=== PATIENT | female | born 1965 | race Hispanic/Latino ===

== ENCOUNTER 2016-09-14 12:58 | Inpatient (IN) | payer MEDICAID ==
--- NOTE | 2016-09-14 13:10 | ED PDOC ---
Arrival/HPI - General Time Seen by Provider: 09/14/16 13:09 Historian: Family - History of Present Illness Narrative History of Present Illness (Text): 09/14/16 13:12 Stephon Clancy is a 51 year old female, whose past history includes rheumatoid arthritis, TIA on Plavix, anemia, sleep apnea, gastric bypass, hypothyroidism, bipolar disorder, schizoaffective disorder, and sleep apnea, presents to the emergency department for altered mental status. According to , patient developed mild weakness and "out of it" yesterday before going to sleep. He states that symptoms became more pronounced today morning after waking up. Patient's states that patient is somnolent and slow to respond to commands. He states that symptoms are different from previous TIA episode. When asked patient about her complaints, she informs of lower back pain. Time/Duration: Other (since yesterday night. ) Past Medical History - Provider Review Nursing Documentation Reviewed: Yes - Infectious Disease Hx of Infectious Diseases: None - Tetanus Immunization Tetanus Immunization: Unknown - Cardiac Hx Cardiac Disorders: Yes - Pulmonary Hx Respiratory Disorders: Yes Hx Pneumonia: Yes Hx Sleep Apnea: Yes (using c-pap at home) - Neurological Hx Neurological Disorder: No - HEENT Hx HEENT Disorder: No - Renal Hx Renal Disorder: Yes Hx Kidney Stones: Yes - Endocrine/Metabolic Hx Endocrine Disorders: Yes Hx Diabetes Mellitus Type 2: Yes Hx Hypothyroidism: Yes - Hematological/Oncological Hx Blood Disorders: Yes Hx Anemia: Yes (multiple blood transfusion) - Integumentary Hx Dermatological Disorder: No - Musculoskeletal/Rheumatological Hx Musculoskeletal Disorders: Yes - Gastrointestinal Hx Gastrointestinal Disorders: Yes (gi bleed) - Genitourinary/Gynecological Hx Genitourinary Disorders: No - Psychiatric Hx Psychophysiologic Disorder: No Hx Substance Use: No - Surgical History Hx Gastric Bypass Surgery: Yes (16 years ago.) Other/Comment: Port insertion - Anesthesia Hx Anesthesia: Yes Hx Anesthesia Reactions: No Hx Malignant Hyperthermia: No - Suicidal Assessment Feels Threatened In Home Enviroment: No Family/Social History - Physician Review Nursing Documentation Reviewed: Yes Family/Social History: No Known Family HX Smoking Status: Never Smoked Hx Alcohol Use: No Hx Substance Use: No Hx Substance Use Treatment: No Allergies/Home Meds Allergies/Adverse Reactions: Allergies Iodinated Contrast Media - Oral and [Iodinated Contrast Media - IV Dye] Allergy (Verified 09/14/16 13:13) RASH iodine Allergy (Verified 09/14/16 13:13) RASH meperidine Allergy (Verified 09/14/16 13:13) RASH Home Medications: Home Meds Medication Instructions Recorded Confirmed Zolpidem Tartrate [Ambien] 10 mg PO HS 09/12/14 12/28/15 ARIPiprazole [Abilify] 20 mg PO DAILY 10/16/14 12/28/15 Tamsulosin [Flomax] 0.4 mg PO DAILY 10/16/14 12/28/15 Cyanocobalamin [Vitamin B12 1000 1,000 mcg PO Q7D 12/09/14 12/28/15 mcg Tab] traZODone [Desyrel] 200 mg PO HS 12/09/14 12/28/15 Pantoprazole [Protonix EC Tab] 40 mg PO BID 12/12/14 12/28/15 Glucagon [Glucagen Diagnostic Kit] 1 mg IM PRN PRN 04/07/15 12/28/15 Pregabalin [Lyrica] 25 mg PO BID 04/07/15 12/28/15 Ergocalciferol (Vitamin D2) 50,000 unit PO QWK 12/28/15 12/28/15 [Vitamin D2] Folic Acid 1 mg PO DAILY 12/28/15 12/28/15 Oxycodone HCl/Acetaminophen 1 tab PO Q6 PRN 12/28/15 12/28/15 [Percocet 5-325 mg Tablet] Pravastatin Sodium [Pravachol] 40 mg PO DAILY 12/28/15 12/28/15 Levothyroxine [Synthroid] 175 mcg PO ACB 09/14/16 09/14/16 Review of Systems - Review of Systems Systems not reviewed;Unavailable: Altered Mental Status Musculoskeletal: Back Pain Physical Exam Vital Signs Temp Pulse Resp BP Pulse Ox 09/14/16 15:13 91 H 19 103/60 95 09/14/16 14:04 90 21 83/45 L 97 09/14/16 13:53 91 H 19 79/52 L 94 L 09/14/16 13:42 100 H 19 94 L 09/14/16 13:31 98.6 F 97 H 18 80/45 L 88 L Medical Decision Making ED Course and Treatment: 09/14/16 13:21 Impression: A 51 year old female who presents to the emergency room for AMS. Progress Notes: Patient initially hypotensive, corrected to baseline BP after 1 L NS. Lactate negative. No tachycardia. Also hypoxic at 80% corrected to normal with 3L NC. CXR shows R sided new infiltrate. Started on broad spectrum antibiotics for HCAP. Also with acute renal insufficiency and rhabdomyolysis. On IVF and coker placed. Dr. Malave accepts to his service. - Lab Interpretations Lab Results: 09/14/16 13:30 09/14/16 13:30 Lab Results 09/14/16 15:27: Urine Opiates Screen Positive H, Urine Methadone Screen Negative , Ur Barbiturates Screen Negative, Ur Phencyclidine Scrn Negative, Ur Amphetamines Screen Negative, U Benzodiazepines Scrn Negative, U Oth Cocaine Metabols Negative, U Cannabinoids Screen Negative 09/14/16 14:18: Urine Color Yellow, Urine Appearance Sl cloudy, Urine pH 6.0, Ur Specific Ambrose >= 1.030, Urine Protein 30 H, Urine Glucose (UA) Negative, Urine Ketones Negative, Urine Blood Large H, Urine Nitrate Negative, Urine Bilirubin Negative, Urine Urobilinogen 0.2, Ur Leukocyte Esterase Negative, Urine RBC 25 - 30, Urine WBC 0 - 2, Urine Bacteria Few, Coarse Granular Casts Mod H 09/14/16 13:30: WBC 13.3 H D, RBC 3.92, Hgb 11.9 L, Hct 36.8, MCV 93.9, MCH 30.4 , MCHC 32.3, RDW 15.3 H, Plt Count 222, MPV 9.8, Gran % 85.5 H, Lymph % (Auto) 8.3 L, Kimball % (Auto) 6.0, Eos % (Auto) 0.0 L, Baso % (Auto) 0.2, Gran # 11.34 H , Lymph # 1.1 L, Kimball # 0.8 H, Eos # 0.0, Baso # 0.02, PT 12.5 H, INR 1.16 H, APTT 41.8 H, pO2 71 H, VBG pH 7.33, VBG pCO2 47.0, VBG HCO3 24.8, VBG Total CO2 26.2, VBG O2 Sat (Calc) 96.3 H, VBG Base Excess -1.5 L, VBG Potassium 3.4 L, Glucose 93, Lactate 1.1, FiO2 21.0, Sodium 137.0, Potassium 3.4 L, Chloride 103.0, Carbon Dioxide 23, Anion Gap 17, BUN 38 H, Creatinine 3.0 H, Est GFR ( Amer) 20, Est GFR (Non-Af Amer) 17, Random Glucose 96, Calcium 8.0 L, Total Bilirubin 0.9, AST 64 H, ALT 14, Alkaline Phosphatase 90, Total Creatine Kinase 2185 H, CK-MB (CK-2) Cancelled, CK-MB (CK-2) % Cancelled, Troponin I 0.09 D, Total Protein 7.9, Albumin 3.8, Globulin 4.0, Albumin/Globulin Ratio 1.0 L, Lipase 47, Beta HCG, Quant < 2.39, Venous Blood Potassium 3.4 L, Alcohol , Quantitative < 10 - RAD Interpretation Radiology Orders: 09/14/16 13:23 HEAD W/O CONTRAST [CT] Stat CHEST ONE VIEW [RAD] Stat - Medication Orders Current Medication Orders: Discontinued Medications Sodium Chloride (Sodium Chloride 0.9%) 1,000 mls @ 999 mls/hr IV .Q1H1M STA Stop: 09/14/16 14:31 Last Admin: 09/14/16 13:39 Dose: 999 MLS/HR eMAR Start Stop Document 09/14/16 13:39 SE (Rec: 09/14/16 13:39 SE [id number]) Intravenous Solution Start Date 09/14/16 Start Time 13:26 Cefepime HCl (Maxipime 1gm) 100 mls @ 100 mls/hr IVPB STAT STA PRN Reason: Protocol Stop: 09/14/16 16:18 Last Admin: 09/14/16 15:38 Dose: 100 MLS/HR eMAR Start Stop Document 09/14/16 15:38 SE (Rec: 09/14/16 15:38 SE [id number]) Intravenous Solution Start Date 09/14/16 Start Time 15:38 Vancomycin HCl (Vancomycin 1gm) 250 mls @ 167 mls/hr IVPB STAT STA PRN Reason: Protocol Stop: 09/14/16 16:48 Sodium Chloride (Sodium Chloride 0.9%) 1,000 mls @ 999 mls/hr IV .Q1H1M STA Stop: 09/14/16 16:26 Last Admin: 09/14/16 15:27 Dose: 999 MLS/HR eMAR Start Stop Document 09/14/16 15:27 SE (Rec: 09/14/16 15:27 SE [id number]) Intravenous Solution Start Date 09/14/16 Start Time 15:27 - Scribe Statement The provider has reviewed the documentation as recorded by the Malathi Darnell Provider Attestation: All medical record entries made by the Malathi were at my direction and personally dictated by me. I have reviewed the chart and agree that the record accurately reflects my personal performance of the history, physical exam, medical decision making, and the department course for this patient. I have also personally directed, reviewed, and agree with the discharge instructions and disposition. Disposition/Present on Arrival - Present on Arrival Any Indicators Present on Arrival: No History of DVT/PE: No History of Uncontrolled Diabetes: No Urinary Catheter: No History Surgical Site Infection Following: Bariatric Surgery, None - Disposition Have Diagnosis and Disposition been Completed?: Yes Diagnosis: Pneumonia Disposition: HOSPITALIZED Disposition Time: 15:39 Patient Plan: Admission Condition: GUARDED
[2016-09-14 13:18] VITALS: BMI 35.5
[2016-09-14] MEDS ORDERED: Sodium Chloride 0.9% 1,000 ML IV STA ×2 (13:31→15:26)
[2016-09-14 13:39] LABS: ADD MANUAL DIFF? NO
[2016-09-14 13:47] LABS: VENOUS BLOOD GAS BASE EXCESS -1.5 mmol/L (0.0-2.0); VENOUS BLOOD PH 7.33 (7.32-7.43)
[2016-09-14 13:57] LABS: BILIRUBIN,TOTAL 0.9 mg/dL (0.2-1.3); POTASSIUM 3.4 mmol/L (3.6-5.0); TOTAL PROTEIN 7.9 g/dL (5.8-8.3)
[2016-09-14 14:00] LABS: ALCOHOL SERUM < 10 mg/dL (0-10)
[2016-09-14 14:03] LABS: BASO # 0.02 K/mm3 (0.0-2.0); BASO % 0.2 % (0.0-3.0); GRAN # 11.34 (1.4-6.5); GRAN % 85.5 % (50.0-68.0); HEMATOCRIT 36.8 % (36.0-48.0); LYMPH # 1.1 (1.2-3.4); LYMPH % 8.3 % (22.0-35.0); MEAN CELL VOLUME 93.9 fL (80.0-105.0); MEAN CORPUSCULAR HEMOGLOBIN 30.4 pg (25.0-35.0); MEAN CORPUSCULAR HGB CONC 32.3 g/dl (31.0-37.0); MEAN PLATELET VOLUME 9.8 fl (7.0-11.0); MONO # 0.8 (0.1-0.6); PLATELET COUNT 222 10^3/uL (120.0-450.0); RED CELL DISTRIBUTION WIDTH 15.3 % (11.5-14.5); WHITE BLOOD COUNT 13.3 10^3/ul (4.5-11.0)
[2016-09-14 14:09] LABS: TROPONIN I 0.09 ng/mL
[2016-09-14 14:13] LABS: INR 1.16 (0.93-1.08); PARTIAL THROMBOPLASTIN TIME 41.8 Seconds (23.7-30.8)
[2016-09-14 14:32] LABS: URINE BILIRUBIN NEGATIVE (NEGATIVE); URINE BLOOD LARGE (NEGATIVE); URINE GLUCOSE (UA) NEGATIVE (NEGATIVE); URINE KETONE NEGATIVE (NEGATIVE); URINE LEUKOCYTE ESTERASE NEGATIVE Leu/uL (NEGATIVE); URINE PROTEIN 30 mg/dL (<30 mg/dL); URINE UROBILINOGEN 0.2 E.U./dL (<1 E.U./dL)
[2016-09-14 14:33] LABS: URINE APPEARANCE SL CLOUDY (CLEAR); URINE COLOR YELLOW (YELLOW)
[2016-09-14 14:38] LABS: URINE BACTERIA FEW (NEG); URINE RBC 25 - 30 /hpf (0-2); URINE WBC 0 - 2 /hpf (0-6)
--- NOTE | 2016-09-14 15:02 | CT ---
PROCEDURE: CT HEAD WITHOUT CONTRAST. HISTORY: ams COMPARISON: 06/22/2016 TECHNIQUE: Axial computed tomography images were obtained through the head/brain without intravenous contrast. Radiation dose: Total exam DLP = 701 mGy-cm. FINDINGS: HEMORRHAGE: No intracranial hemorrhage. BRAIN: No mass effect or edema. No atrophy or chronic microvascular ischemic changes. VENTRICLES: Unremarkable. No hydrocephalus. CALVARIUM: Unremarkable. PARANASAL SINUSES: Unremarkable as visualized. No significant inflammatory changes. MASTOID AIR CELLS: Unremarkable as visualized. No inflammatory changes. OTHER FINDINGS: None. IMPRESSION: Normal CT of the Head.
--- NOTE | 2016-09-14 15:17 | RAD ---
PROCEDURE: CHEST RADIOGRAPH, 1 VIEW HISTORY: ams COMPARISON: 06/22/2016 at 2:03 p.m. FINDINGS: LUNGS: Shallow lung volumes Right perihilar a right infrahilar and right mid lung zone blending airspace opacities. Right mid lung zone bandlike opacity infiltrates versus masses are considerations. Right mid lung zone subsegmental discoid atelectasis probable as well. PLEURA: No pneumothorax or pleural fluid seen. CARDIOVASCULAR: Normal. OSSEOUS STRUCTURES: No significant abnormalities. VISUALIZED UPPER ABDOMEN: Port-A-Cath inserted tip over right atrial caval junction OTHER FINDINGS: Right mammilated hemidiaphragm IMPRESSION: Interval right perihilar itchy infiltrates with right mid lung zone discoid atelectasis. Underlying right pulmonary masses also need to be considered.
[2016-09-14] MEDS ORDERED: Cefepime 1gm in NS 100ml 100 ML IVPB STA (15:19)
[2016-09-14] MEDS ORDERED: Vancomycin 1gm in NS 250ml 250 ML IVPB STA (15:19)
--- NOTE | 2016-09-14 19:52 | CARD ---
APPROVED REPORT EKG Measurement Heart [id number] VT 144P2 [id number] <Conclusion> Sinus tachycardia Otherwise normal ECG
[2016-09-14] MEDS ORDERED: guaiFENesin DM 200 mg-20 mg/10 ml UD PO PRN (20:55)
[2016-09-14] MEDS: Meropenem 1g/NS 100mL IVPB 100 ML IVPB SCH (22:38)
[2016-09-15] MEDS ORDERED: Potassium Chloride 20 mEq ER Tab PO STA (04:23)
--- NOTE | 2016-09-15 04:38 | CP.PCM.PN ---
Subjective - Date & Time of Evaluation Date of Evaluation: 09/15/16 Time of Evaluation: 04:34 - Subjective Subjective: Nurse calls and requests tylenol for headache.Patient has an order percocet. Blood pressure has been low. Patient was seen by bedside. Complains of head ache , frontal, 7/10, no nausea, dizziness, parasthesia, lateralized weakness , states that she has generalized weakness, no chest pain , sob. 51 year old white woman is admitted with altered mental status. Has PMH of CVA x3, rheumatoid arthrits, anemia,DM II ,GI bleeding, RENA,renal calculus gastric bypass, bipolar disorder,benign pituitary adenoma, schizoaffective disorder,hypothyroidism, morbid obesity, insertion of port-a- cath,cardiac catheterizaion. Objective - Vital Signs/Intake and Output Vital Signs (last 24 hours): Temp Pulse Resp BP Pulse Ox 98.6 F 85 18 100/45 L 95 09/14/16 17:02 09/14/16 18:00 09/14/16 17:02 09/14/16 17:02 09/14/16 15:13 Intake and Output: 09/14/16 09/15/16 18:59 06:59 Intake Total 420 Output Total 350 Balance 70 - Medications Medications: Current Medications Apixaban (Eliquis) 5 mg PO BID KEITH PRN Reason: Protocol Aripiprazole (Abilify) 20 mg PO DAILY KEITH PRN Reason: Protocol Duloxetine HCl (Cymbalta) 20 mg PO DAILY KEITH Folic Acid (Folic Acid) 1 mg PO DAILY KEITH Guaifenesin/Dextromethorphan (Robitussin Dm) 10 ml PO Q4H PRN PRN Reason: Cough Doxycycline Hyclate 100 mg/ (Sodium Chloride) 100 mls @ 100 mls/hr IVPB Q12 KEITH PRN Reason: Protocol Stop: 09/21/16 22:01 Last Admin: 09/14/16 22:38 Dose: 100 mls/hr Meropenem 1g/NS 100mL IVPB (Meropenem 1g/Ns 100ml Ivpb) 100 mls @ 100 mls/hr IVPB Q12 KEITH PRN Reason: Protocol Stop: 09/21/16 22:01 Last Admin: 09/14/16 22:38 Dose: 100 mls/hr Levothyroxine Sodium (Synthroid) 175 mcg PO ACB KEITH Oxycodone/Acetaminophen (Percocet 5/325 Mg Tab) 1 tab PO Q6H PRN PRN Reason: Pain, severe (8-10) Stop: 09/17/16 18:24 Pantoprazole Sodium (Protonix Ec Tab) 40 mg PO 0630 [facility] Pregabalin (Lyrica) 25 mg PO BID [facility] Trazodone HCl (Desyrel) 200 mg PO HS [facility] Last Admin: 09/14/16 22:36 Dose: 200 mg Zolpidem Tartrate (Ambien) 10 mg PO HS PRN; Protocol PRN Reason: Insomnia - Labs Labs: PT 12.5 Seconds (9.9-11.8) H 09/14/16 13:30 INR 1.16 (0.93-1.08) H 09/14/16 13:30 APTT 41.8 Seconds (23.7-30.8) H 09/14/16 13:30 - Constitutional Appears: Well, No Acute Distress - Head Exam Head Exam: ATRAUMATIC, NORMAL INSPECTION, NORMOCEPHALIC Additional comments: Obese. - Eye Exam Eye Exam: Normal appearance - ENT Exam ENT Exam: Normal External Ear Exam - Neck Exam Neck Exam: Normal Inspection - Respiratory Exam Respiratory Exam: NORMAL BREATHING PATTERN - Cardiovascular Exam Cardiovascular Exam: absent: JVD - GI/Abdominal Exam GI & Abdominal Exam: absent: Distended - Rectal Exam Rectal Exam: Deferred - Extremities Exam Extremities Exam: Normal Inspection - Back Exam Back Exam: NORMAL INSPECTION - Neurological Exam Neurological Exam: Alert, Oriented x3 - Psychiatric Exam Psychiatric exam: Normal Affect, Normal Mood - Skin Skin Exam: Normal Color Assessment and Plan - Assessment and Plan (Free Text) Assessment: A/P : Head ache. Low blood pressure reading. Hypokalemia. Obesity. Hypertension. Hypothyroidism. AMS. Tylenol 650 mg PO now. K-Dur 40 mEq PO now.
[2016-09-15] MEDS: Pantoprazole 40 mg EC Tab PO SCH (06:28)
[2016-09-15 06:43] LABS: ADD MANUAL DIFF? NO
[2016-09-15 06:48] LABS: BASO # 0.02 K/mm3 (0.0-2.0); BASO % 0.3 % (0.0-3.0); EOS % 0.1 % (1.5-5.0); GRAN # 5.58 (1.4-6.5); GRAN % 74.7 % (50.0-68.0); HEMATOCRIT 31.2 % (36.0-48.0); LYMPH # 1.3 (1.2-3.4); LYMPH % 17.5 % (22.0-35.0); MEAN CELL VOLUME 93.7 fL (80.0-105.0); MEAN CORPUSCULAR HGB CONC 32.1 g/dl (31.0-37.0); MEAN PLATELET VOLUME 9.7 fl (7.0-11.0); MONO # 0.6 (0.1-0.6); MONO % 7.4 % (1.0-6.0); PLATELET COUNT 198 10^3/uL (120.0-450.0); RED CELL DISTRIBUTION WIDTH 15.3 % (11.5-14.5); WHITE BLOOD COUNT 7.5 10^3/ul (4.5-11.0)
[2016-09-15 06:58] LABS: ALB/GLOB RATIO 0.9 (1.1-1.8); BILIRUBIN,TOTAL 0.5 mg/dL (0.2-1.3); CALCIUM 7.3 mg/dL (8.4-10.5); POTASSIUM 3.9 mmol/L (3.6-5.0); TOTAL PROTEIN 6.7 g/dL (5.8-8.3)
--- NOTE | 2016-09-15 07:25 | HP ---
CHIEF COMPLAINT: Mental status change, pneumonia. HISTORY OF PRESENT ILLNESS: The patient is a 51-year-old female admitted via the Emergency Room afte r complaining of unresponsiveness with weakness reported by her . Was seen in our office with Dr. Malave earlier today with the patient sitting in a chair, not responding to verbal and tactile stimuli. No obvious seizure activity with the patient then. Brought in via wheelchair for evaluatio n of TIA versus seizure disorder. She is known to suffer from multiple disease processes listed belo w, with the patient now resting comfortably in bed in no acute distress, now speaking slowly to and a nswering questions appropriately. PAST MEDICAL HISTORY: Includes history of transient ischemic attack on Plavix, bipolar disorder, willie izoaffective disorder, sleep apnea, gastric bypass, hypothyroidism, rheumatoid arthritis, anemia of c hronic disease, history of pituitary "intervention" approximately 20 years prior, with a pituitary ma ss without surgery, gastric bypass surgery in year 1999, history of hypoglycemia with CVA as above. ALLERGIES: IV DYE AND DEMEROL. MEDICATIONS: Include Synthroid, Lyrica, Cymbalta, Abilify, pravastatin, trazodone, vitamin D, Proton ix, Eliquis, Ambien, folic acid, glucagon p.r.n., Klonopin p.r.n., Percocet p.r.n. FAMILY HISTORY AND SOCIAL HISTORY: Nonsmoker and non-ethanolic. at the bedside. Otherwise, noncontributory. There is also a questionable ALLERGY TO ASPIRIN? REVIEW OF SYSTEMS: Essentially negative to questioning except as above. PHYSICAL EXAMINATION: VITAL SIGNS: Today, temperature 98.6, pulse 85, respirations 18, blood pressure 100/45, pulse ox 95% . HEENT: Unremarkable. NECK: Supple. HEART: Regular rate. LUNGS: Clear. ABDOMEN: Obese, soft, and nontender. EXTREMITIES: No edema. 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 SKIN: Otherwise, warm, dry and clear. NEUROLOGIC: She is awake now, answers questions slowly but appropriately, with some confusion as to what has happened. LABORATORY DATA: White blood cell count of , hemoglobin 11.9, hematocrit of 36.8, platelet coun t 222,000 with a chem metabolic panel showing a potassium of 3.4, creatinine of 3.0, which is new. C K of 2185. Procalcitonin of 42.8. AST of 64, calcium of 8.0. The patient's previous BUN and creatinine were BUN of 13, creatinine of 0.9 on 06/23/16, now with a c reatinine of 3.0, BUN of 38, with a CK of greater than 2000. Her INR today is 1.1 with a blood gas s howing a pO2 of 71, pH of 7.3. Urinalysis showed large amount of blood. Toxicology screen is positi ve for opiates. The patient had a chest x-ray done earlier today. It was read as interval right perihilar patchy inf iltrates right mid lung zone, discoid atelectasis, underlying right pulmonary masses also need to be considered. CT of the head was done. It was read as normal CT of the head. EKG was done. It was read as sinus tachycardia, otherwise normal EKG. It also should be noted that the patient was hypotensive on evaluation in the Emergency Room, correct ed with normal saline. ASSESSMENT: Altered mental status, new pneumonia, new acute renal failure, hypokalemia, probable rha bdomyolysis, history of transient ischemic attack on Plavix, bipolar disorder, schizoaffective disord er, hypothyroidism, rheumatoid arthritis, sleep apnea, and history of transient ischemic attack/cereb rovascular accident. PLAN: Patient to be admitted to the telemetry floor. Consult ID, Dr. Treviño. Consult renal, Dr. Hollie mckeon. Cardiology consult, Dr. Parker. We will begin IV antibiotics. Continue present medical felipe men, with patient requesting cough medicine which will be given. We will continue Dr. Treviño's antibi otic regimen of doxycycline with meropenem. The prognosis for this patient is guarded. We will maurice tor clinically and with labs. Ronal Kahn MD cc: [phone] TT: 09/15/2016 07:24:38 yuli
[2016-09-15] MEDS: Levothyroxine 175 MCG TAB PO SCH (08:13)
[2016-09-15 09:34] LABS: TROPONIN I 0.03 ng/mL
[2016-09-15] MEDS: Meropenem 1g/NS 100mL IVPB 100 ML IVPB SCH ×2 (10:17→22:38)
--- NOTE | 2016-09-15 12:19 | CON ---
DATE: 09/15/2016 REASON FOR CONSULTATION: Altered mental status, history of paroxysmal atrial fibrillation, history o f TIA, cardiac evaluation. BRIEF CLINICAL HISTORY: This is a 51-year-old female who came to the Emergency Room yesterday after brought by the family because of unresponsiveness. The patient was seen in Dr. Malave's office, sit ting in a chair, not responding to verbal stimuli. The patient denies any chest pain, denies any bibiana rtness of breath, any palpitation. PAST MEDICAL HISTORY: Significant for transient ischemic attack; history of paroxysmal atrial fibril lation, was on Eliquis before, now on Plavix; bipolar disorder, schizoaffective disorder, sleep apnea , gastric bypass, hypothyroidism, rheumatoid arthritis, anemia of chronic disease, history of pituita ry intervention approximately 20 years ago, hypoglycemia. PAST SURGICAL HISTORY: History of pituitary intervention 20 years ago, history of gastric bypass in 1999. ALLERGIES: DYE AND DEMEROL. CURRENT MEDICATIONS: The patient takes Synthroid, Lyrica, Cymbalta, Abilify, pravastatin, trazodone, vitamin D, Eliquis, folic acid, glucagon, Klonopin, Percocet. Possibly patient is taking Plavix now , but she says that she was on Eliquis at home. Being followed by procurement specialist at Dr. Yip's office. REVIEW OF SYSTEMS: As per HPI. PHYSICAL EXAMINATION: VITAL SIGNS: Temperature afebrile, heart rate 95, blood pressure 99/53. HEENT: PERRLA. Extraocular muscles intact. NECK: Supple. No carotid bruits. No thyromegaly. CHEST: Clear to auscultation. HEART: S1, S2 regular. ABDOMEN: Soft. EXTREMITIES: Clubbing and cyanosis negative. BLOOD WORKUP: WBC 7.____, hemoglobin 10, hematocrit 31.2, platelet count 198. Chemistry shows sodiu m 138, potassium 3.9, chloride 104, carbon dioxide 25, anion gap of 13, BUN 33, creatinine 2.0. EKG shows sinus tachycardia at a rate of 108. IMPRESSION: Obesity, morbid, body minus index 39.8 kg/m2; chronic anemia history, has a Port-A-Cath, acute kidney injury. Admitted with a creatinine of 3. Baseline creatinine on 06/23/2016 was 0.9. Rule out orthostatic hypotension, history of pituitary intervention 20 years ago, rule out Hickman's disease, obesity; history of paroxysmal atrial fibrillation, now patient is sinus tachycardia; anemia of chronic disease, history of gastric bypass, history of sleep apnea, history of schizoaffective di sorder, admitted with near syncope, history of gastric bypass. RECOMMENDATION: Will do orthostatic hypotension. Continue IV fluid. Echo to assess LV function. W ill follow with you. So far, no evidence of acute myocardial infarction. CPK, troponin remain flat. Continue IV fluid. Will follow with you. Thank you, Dr. Malave, for providing us the opportunity in taking care of this patient. Will follow with you. Gisselle Parker MD cc: [phone] TT: 09/15/2016 12:18:38 Confirmation # [id number] Dictation # [id number] mn
[2016-09-15] MEDS: Sodium Chloride 0.9% 1,000 ML IV SCH (12:45)
--- NOTE | 2016-09-15 14:36 | CP.PCM.CON ---
History of Present Illness - History of Present Illness History of Present Illness: 51 year old female with PMH of rheumatoid arthritis, history of transient ischemic attack, obstructive sleep apnea. Morbid obesity with BMI 40, hypothyroidism, bipolar disorder, shcizoaffective disorder, S/P gastric bypass surgery was brought in to [facility] because of lethargy, associated with generalized weakness. Patient has occasional dry cough, but there is no note of fevers at home, no vomiting, no diarrhea, no convulsions or loss of consciousness. The patient also has decreased appetite. On admission, the patient was noted to have leukocytosis and renal failure. CXR showed possible infiltrates bilaterally. Infectious Diseases consult is requested to further evaluate and manage. Full review of systems is difficult to obtain because the patient is lethargic but the patient does answer some questions. Review of Systems - Review of Systems Systems not reviewed;Unavailable: Altered Mental Status Past Patient History - Infectious Disease Hx of Infectious Diseases: None - Tetanus Immunizations Tetanus Immunization: Unknown - Past Social History Smoking Status: Never Smoked - CARDIAC Hx Cardiac Disorders: Yes - PULMONARY Hx Respiratory Disorders: Yes Hx Pneumonia: Yes Hx Sleep Apnea: Yes (using c-pap at home) - NEUROLOGICAL Hx Neurological Disorder: No - HEENT Hx HEENT Problems: No - RENAL Hx Chronic Kidney Disease: Yes Hx Kidney Stones: Yes - ENDOCRINE/METABOLIC Hx Endocrine Disorders: Yes Hx Diabetes Mellitus Type 2: Yes Hx Hypothyroidism: Yes - HEMATOLOGICAL/ONCOLOGICAL Hx Blood Disorders: Yes Hx Anemia: Yes (multiple blood transfusion) - INTEGUMENTARY Hx Dermatological Problems: No - MUSCULOSKELETAL/RHEUMATOLOGICAL Hx Musculoskeletal Disorders: Yes - GASTROINTESTINAL Hx Gastrointestinal Disorders: Yes (gi bleed) - GENITOURINARY/GYNECOLOGICAL Hx Genitourinary Disorders: No - PSYCHIATRIC Hx Psychophysiologic Disorder: No Hx Substance Use: No - SURGICAL HISTORY Hx Gastric Bypass Surgery: Yes (16 years ago.) Other/Comment: Port insertion - ANESTHESIA Hx Anesthesia: Yes Hx Anesthesia Reactions: No Hx Malignant Hyperthermia: No Meds Allergies/Adverse Reactions: Allergies Allergy/AdvReac Type Severity Reaction Status Date / Time Iodinated Contrast Media - Allergy RASH Verified 09/14/16 13:13 Oral and [Iodinated Contrast Media - IV Dye] iodine Allergy RASH Verified 09/14/16 13:13 meperidine Allergy RASH Verified 09/14/16 13:13 Physical Exam - Constitutional Appears: Non-toxic, No Acute Distress - Head Exam Head Exam: NORMAL INSPECTION - ENT Exam ENT Exam: Mucous Membranes Moist - Neck Exam Neck exam: Negative for: Lymphadenopathy, Meningismus - Respiratory Exam Respiratory Exam: Decreased Breath Sounds - Cardiovascular Exam Cardiovascular Exam: +S1, +S2 - GI/Abdominal Exam GI & Abdominal Exam: Soft. absent: Tenderness Results - Vital Signs Recent Vital Signs: Last Vital Signs Temp 98.6 F 09/14/16 13:31 Pulse 91 H 09/14/16 15:13 Resp 19 09/14/16 15:13 BP 103/60 09/14/16 15:13 Pulse Ox 95 09/14/16 15:13 - Labs Result Diagrams: 09/15/16 06:42 09/15/16 06:42 Assessment & Plan - Assessment and Plan (Free Text) Plan: Assessment Systemic Inflammatory Response Syndrome, consider severe sepsis with acute change in sensorium and acute renal failure secondary to healthcare-associated pneumonia with possible gram positive cocci and/or gram negative bacilli rheumatoid arthritis history of transient ischemic attack obstructive sleep apnea Morbid obesity with BMI 40 hypothyroidism bipolar disorder shcizoaffective disorder, S/P gastric bypass surgery Plan Started patient on Doxycycline and Merrem pending sputum cx, blood cx, urine cx ; reviewed CXR; PCT is elevated Discussed with Dr. Childress (director pharmacology) Will follow clinically
--- NOTE | 2016-09-15 14:49 | CON ---
DATE: 09/15/2016 This is a 51-year-old lady with a history of asthma and some psychiatric disorder, rheumatoid arthritis, who presented this time with increased shortness of breath, some cough with sputum production and some hallucinations. The patient was found to be hypotensive in the Emergency Room, was given 2 L of normal saline with mild improvement in the blood pressure. Meanwhile, her blood work revealed acute kidney injury with creatinine initially of 3.0. At the time of presentation, it is 2.0. Some vascular congestion was of concern on the chest x-ray. Cardiology consult was placed and pulmonary consult was placed as well. Of note, patient reports that she is a lifelong nonsmoker and was diagnosed with asthma about 8 years ago. She reports that she is using albuterol inhaler every day, sometimes at night and sometimes during the daytime. She could not elaborate further. Apparently, she has never been intubated for asthma and she is not taking steroids at home. The patient's cough and shortness of breath progressed over the period of 1 day yesterday which culminated in her admission to [facility] ER. PAST MEDICAL HISTORY: TIA, paroxysmal atrial fibrillation (patient is on Eliquis), bipolar disorder, schizoaffective disorder, sleep apnea, gastric bypass, hypothyroidism, rheumatoid arthritis, history of pituitary intervention approximately 20 years ago, hyperglycemia. ALLERGIES: IV DYE AND DEMEROL. MEDICATIONS AT HOME: Desyrel, Ambien, thiamine, Lyrica, Pravachol, Protonix, Percocet, Synthroid, folic acid, Cymbalta, Abilify, vitamin B12, Flomax, Zofran , ibuprofen, Plavix, glucagon. MEDICATIONS IN THE HOSPITAL: Abilify, Ambien, Cymbalta, trazodone, doxycycline , Eliquis, folic acid 1 mg p.o. daily, Lyrica, meropenem, cefepime, Percocet p.r.n., Protonix, Robitussin, normal saline 100 mL per hour, Synthroid 175 mcg p.o. ACB, Tylenol p.r.n. FAMILY HISTORY: Noncontributory. SOCIAL HISTORY: The patient is a lifelong nonsmoker, no alcohol or illicit drug abuse. REVIEW OF SYSTEMS: No nausea, no vomiting, no diarrhea, no constipation, no chest pain. The rest of 12-organ system review is negative. PHYSICAL EXAMINATION: VITAL SIGNS: Temperature 97.4, heart rate 77, blood pressure 93/56, respiratory rate 20, oxygen saturation 94% on room air. HEAD AND NECK: Atraumatic. LUNGS: Clear to auscultation bilaterally. HEART: Regular rate and rhythm. S1, S2 normal. ABDOMEN: Soft, nontender, nondistended. MUSCULOSKELETAL: No C/C/E. NEUROLOGIC: The patient moves all extremities spontaneously. SKIN: Moist. PSYCHIATRIC: The patient is alert and oriented x 3. LABORATORY DATA: WBC 7.5, hemoglobin 10, platelet count 198. Sodium 138, potassium 3.9, chloride 104, carbon dioxide 25, BUN 33, creatinine 2 down from 3 , hemoglobin A1c 5.2. CPK 1226. Troponin x 2 negative. EKG did not reveal any specific ischemic changes. Procalcitonin is 42.82. However, in the setting of acute kidney injury, procalcitonin level can be falsely elevated. TSH 1.47, AST 49, ALT 19, total bilirubin 0.5. VBG showed 7.33/47/71, lactic acid 1.1. Influenza negative. Urine for legionella antigen is negative. U-tox screen is positive for opiates. Alcohol is negative. INR 1.16, PTT 41.6. Urine showed some proteinuria, large blood, some RBCs, some WBC is 10, and some coarse granular casts. Echocardiogram was done. Official report is pending. Preliminary review did not reveal severe left ventricular systolic or diastolic dysfunction. Head CT revealed no acute intracranial pathologies. Chest x-ray showed right perihilar right infrahilar and right midlung zone blending airspace opacities, right midlung zone band-like opacity. Infiltrates versus masses are considerations. Right midlung zone subsegmental discoid atelectasis probable as well. ASSESSMENT AND PLAN: This is a 51-year-old lady who presented with increased shortness of breath, sputum production and altered mental status. She was found to be somewhat hypotensive and in acute kidney injury. Chest x-ray concerning for either atelectasis, right perihilar infiltrate or vascular congestion. However, at present time, provided that the patient is still low normotensive, having acute kidney injury and some rhabdomyolysis, I will continue with IV fluids. It is unclear whether relative hypotension may have been a culprit for BAYRON, as otherwise patient is very comfortable, mentating well , doesnt have chest pain, troponin x 2 negative and there are no ischemic changes on EKG. Patient also doesnt have elevated lactate. Even though procalcitonin in the setting of acute kidney injury can be falsely elevated, her procalcitonin level is disproportionally high, thus I would agree with antibiotics and septic workup. I will trend procalcitonin to see whether it is going down. I am a little bit concerned about active urine sediment. Nephrology consult is pending. Meanwhile, I will order C3, C4, rheumatologic screening ANCA and anti-GBM antibiotics, hepatitis profile, cryoglobulin level. Urine for streptococcal and legionella antigen was sent as well. I will get a CAT scan of the chest to better characterize those findings that were evident on chest x-ray. I will order CRP as well. If CRP comes back elevated (>15) and if flu serology/immunology comes back negative, and provided that the patient may have community acquired pneumonia (infiltrates, sputum production, cough), will start low dose steroids. We will continue to target euvolemia, euglycemia , normothermia and oxygen saturation more than 90%. We will continue with gastrointestinal prophylaxis. The patient is on Eliquis therapeutic dose adjusted for renal function for stroke prophylaxis in the setting of paroxysmal afib. Nephrology consult is pending. Once rhabdo and BAYRON resolved would proceed with conservative fluid management. Echo was done--official report is pending and cardio service input is appreciated . Rudy Seymour MD cc: [id number] TT: 09/15/2016 14:49:38 Confirmation # [id number] Dictation # [id number] MEDINA
[2016-09-15] MEDS: Oxycodone/Acetaminophen 5/325 mg Tab PO PRN ×2 (16:00→22:40)
[2016-09-15 16:21] LABS: ARTERIAL BLOOD GAS HCO3 23.7 mmol/L (21-28); ARTERIAL BLOOD GAS PH 7.36 (7.35-7.45)
--- NOTE | 2016-09-15 17:08 | CT ---
PROCEDURE: CT Chest without contrast HISTORY: pneumonia COMPARISON: Comparison is made to the previous study dated 01/18/2015 TECHNIQUE: Contiguous axial images were obtained through the chest without intravenous contrast enhancement. Sagittal and coronal reconstructions were performed. Radiation dose (DLP): 804.8 mGy-cm. FINDINGS: LUNGS: Patchy ground-glass opacities in the lungs more prominent at the right lung. There is focal opacity at or adjacent to the lesser fissure on the right may represent a pneumonia. Small airspace opacities are also seen at the right lower lobe. Linear opacity seen at the lung bases likely scar tissue or atelectasis. MEDIASTINUM: The thoracic aorta is ectatic and tortuous. Normal sized heart. Heart is upper normal limit in size. Main pulmonary artery is prominent in size. Mildly enlarged precarinal lymph node. PLEURA: Possible trace right pleural effusion BONES: No fracture. No destructive lesion. UPPER ABDOMEN: Postsurgical changes at the stomach suggestive of prior gastric bypass surgery. No evidence of acute pathology. OTHER FINDINGS: Right-sided jugular central line is seen in place. IMPRESSION: Patchy ground-glass opacities and airspace consolidation at the right lung suspicious for multifocal pneumonia. Other etiology such as neoplasm is less likely. Follow-up reassessment is suggested. Trace right pleural effusion. . Otherwise no significant interval change compared to the previous exam.
--- NOTE | 2016-09-15 18:45 | CARD ---
APPROVED REPORT EXAM: Two-dimensional and M-mode echocardiogram with Doppler and color Doppler. INDICATION Syncope 2D DIMENSIONS Left Atrium (2D)4.5 (1.6-4.0cm)IVSd1.2 (0.7-1.1cm) LVDd4.5 (3.9-5.9cm)PWd1.5 (0.7-1.1cm) LVDs3.0 (2.5-4.0cm)FS (%) 32.6 % LVEF (%)61.1 (>50%) M-Mode DIMENSIONS Aortic Root3.30 (2.2-3.7cm)Aortic Cusp Exc.1.80 (1.5-2.0cm) Aortic Valve AoV Peak Hvbwmrxn391.0cm/sAoV VTI40.4cmAO Peak GR.28mmHg LVOT Peak Iqkvlzft327.0cm/sLVOT VTI30.10cmAO Mean GR.15mmHg Mitral Valve MV E Kmgrrwbp35.0cm/sMV A Eqlzvtqx905.0cm/sE/A ratio0.8 TDI Lateral E' Peak V12.30cm/sMedial E' Peak V10.00cm/sE/Lateral E'7.8 E/Medial E'9.6 Pulmonary Valve PV Peak Yuhcgjpf796.0cm/sPV Peak Grad.6mmHg Tricuspid Valve TR Peak Hnagdxdi012qa/sRAP NSFKPKNQ50wqAnYI Peak Gr.28mmHg HJEB05zvHy LEFT VENTRICLE The left ventricle is normal size. There is mild to moderate concentric left ventricular hypertrophy. The left ventricular function is normal.EF-55% There is normal LV segmental wall motion. Transmitral Doppler flow pattern is Grade III-reversible restrictive diastolic dysfunction. No left ventricle thrombus noted on this study. There is no ventricular septal defect visualized. There is no left ventricular aneurysm. There is no mass noted in the left ventricle. RIGHT VENTRICLE The right ventricle is normal size. There is normal right ventricular wall thickness. The right ventricular systolic function is normal. ATRIA The left atrium is mildly dilated. The right atrium size is normal. The interatrial septum is intact with no evidence for an atrial septal defect. AORTIC VALVE The aortic valve is thickened but opens well. The aortic valve is mildly sclerotic. There is trace aortic regurgitation. There is no aortic valvular stenosis. There is no aortic valvular vegetation. MITRAL VALVE The mitral valve is thickened but opens well. Mitral regurgitation is trace to mild. There is no mitral valve stenosis. There is no evidence of mitral valve prolapse. TRICUSPID VALVE The tricuspid valve leaflets are thickened , but open well. There is trace to mild tricuspid regurgitation.RVSP_38 mmof hg. There is no tricuspid valve stenosis. There is no tricuspid valve prolapse or vegetation. PULMONIC VALVE The pulmonic valve is not well visualized. There is trace pulmonic valvular regurgitation. There is no pulmonic valvular stenosis. GREAT VESSELS The aortic root is normal in size. The ascending aorta is normal in size. The pulmonary artery is normal. The IVC was not visualized. PERICARDIAL EFFUSION There is no pleural effusion. There is no pericardial effusion. <Conclusion> The left ventricle is normal size. There is mild to moderate concentric left ventricular hypertrophy. The left ventricular function is normal.EF-55% There is trace aortic regurgitation. Mitral regurgitation is trace to mild. There is trace to mild tricuspid regurgitation.RVSP_38 mmof hg. There is no pericardial effusion.
--- NOTE | 2016-09-15 20:48 | CON ---
DATE: 09/15/2016 HISTORY OF PRESENT ILLNESS: A 51-year-old female with past medical history of asthma, rheumatoid art hritis. The patient was found to be hypotensive in the Emergency Room. The patient was given normal saline and called to evaluate the patient. The patient shows some congestion on the chest x-ray. I was called to evaluate the patient. PAST MEDICAL HISTORY: Transient ischemic attack and paroxysmal atrial fibrillation. The patient is on Eliquis, bipolar, schizoaffective disorder, hypothyroidism, rheumatoid arthritis, and hyperglycemi a. ALLERGIES: IV DYE AND DEMEROL. MEDICATIONS: [facility], [facility], Cymbalta, trazodone, doxycycline, Eliquis, Lyrica. SOCIAL HISTORY: Nonsmoker, does not drink. REVIEW OF SYSTEMS: A 10-point review of systems was negative. PHYSICAL EXAMINATION: HEENT: Normocephalic, atraumatic. NECK: Supple. NEUROLOGIC: Alert, awake, oriented x 3. No aphasia. Cranial nerves II through XII were tested. Pu pils reactive. Spontaneous movement of the extremities noted. Deep tendon reflexes 1+. Both planta rs are downgoing. Sensory appears intact. Cerebellar gait deferred. IMPRESSION: A 51-year-old presented with shortness of breath and altered mental status and multiple medical problems. A CAT scan of the head was done, which was reported negative. Continue workup in progress. LABORATORY DATA: WBC 7.5, hemoglobin 10, hematocrit 31.2, platelets 198. Creatinine kinase is incre asing. CT of the chest was done, head was negative and chest show patchy consolidation of the right lobe, suspicious for pneumonia. PLAN: Continue present management. We will follow up. Solitario Hooks MD cc: [id number] TT: 09/15/2016 20:48:05 Confirmation # [id number] Dictation # [id number] yuli
[2016-09-15] MEDS: MethylPREDNISolone 40 mg Vial IVP SCH (22:39)
--- NOTE | 2016-09-15 22:40 | PN ---
DATE: 09/15/[address] Malave. SUBJECTIVE: The patient is a 51-year-old female seen sitting up in bed, more alert today, in no acut e distress, with the patient now being treated for pneumonia with a significantly elevated procalcito luis level. She is now to be seen by Dr. Seymour for her sleep apnea as she will be followed in the clinic after conversation with Dr. Busby as he does not participate with her insurance as Dr. Carole arndt will assume care in this respect. OBJECTIVE: VITAL SIGNS: Temperature 98.9, pulse 103, respirations 20, blood pressure 100/57 with a pulse ox of 94%. HEENT: Unremarkable. NECK: Supple. HEART: Regular rate. LUNGS: Minimal decreased breath sounds, scattered rhonchi on the right. ABDOMEN: Obese, soft, and nontender. EXTREMITIES: Faint +1 edema. NEUROLOGIC: More alert, awake, with weakness of the lower extremities bilaterally. LABORATORY DATA: The patient's labs were done. White blood cell count 7.5, down from 13.3 yesterday , hemoglobin 10.0, hematocrit 31.2, platelet count 198,000 with a chem metabolic panel showing a BUN of 33, creatinine of 2.0, which has improved. Her CK is now 2688 with a C-reactive protein of greate r than 15. As previously noted, the patient has a procalcitonin level of 42.8. The patient did have a CT scan of her chest done today. It was read as patchy ground glass opacities , airspace consolidation in the right lung suspicious for multifocal pneumonia, the ____ neoplasms le ss likely. She had echocardiogram done today, it was read as left ventricular ejection fraction of 5 5, left ventricular hypertrophy. No pericardial effusion. ASSESSMENT: Systemic inflammatory response syndrome, severe sepsis, pneumonia, history of transient ischemic attack, bipolar disorder, acute renal failure resolving, hypokalemia, rhabdomyolysis, schizo affective disorder, hypothyroidism, history of sleep apnea. PLAN: Will be to continue present medical regimen. We will monitor clinically and with labs. Progn osis for this patient is guarded. Ronal Kahn MD cc: [id number] TT: 09/15/2016 22:39:49 Confirmation # [id number] Dictation # [id number] jn
--- NOTE | 2016-09-15 22:49 | CON ---
DATE: 09/15/2016 CONSULTATION REQUESTED BY: Dr. Ronal Kahn. REASON FOR CONSULTATION: Hypotension, hypokalemia, rhabdomyolysis, acute renal failure, and anemia. HISTORY OF PRESENT ILLNESS: The patient a 51-year-old female. She was brought to [facility] Emergency Department yesterday for an alteration in her mental status, in particular, she appe ared quite weak. On arrival to the ED, she was noted to be somewhat slow to respond to focused quest ions. Vital signs on presentation revealed that her blood pressure was low at 80/45, heart rate was 97. She was breathing at 18 breaths per minute and an oxygen saturation of 88% on room air. Oral te mperature was 98.6 degrees. Laboratory studies revealed leukocytosis at 13,300 with 86% neutrophils. Lactic acid level was within normal limits. BUN/creatinine were elevated at 38/3.0, which the edel ent's baseline creatinine is less than 1, as it was less than 3 months ago. Potassium is low at 3.4. CPK was elevated at 2,185. Urinalysis was cloudy with a specific gravity of greater than 1.030 wit h large blood. Urine toxicology was positive for opiates, but it is noted that the patient takes Per cocet at home on a p.r.n. basis. Influenza was negative. The patient had a CT scan of her head with out contrast, which was unremarkable, as well as a chest x-ray, which revealed perihilar infiltrates in the right mid lung zone. This was subsequently followed up by CT scan of her chest without contra st, which revealed patchy ground-glass opacities in the lung, more prominent in the right lung than t he left, suspicious for multifocal pneumonia, more so than for neoplasm. The patient was promptly st arted on intravenous antibiotics (meropenem and doxycycline) and admitted to telemetry for further ev aluation and management. With respect to the elevated CPK noted on presentation, I had a lengthy dis cussion with the patient, as well as her , today and they both denied that the patient had any trauma, falls, seizures, accidents, or engages in any strenuous activity more than routine physical therapy. With respect to the hypokalemia, they denied that the patient had any vomiting or diarrhea, and the patient is not on any diuretics at home. Of note, troponin is within normal limits. REVIEW OF SYSTEMS: Was taken across all 10 systems and 14 points and is negative unless stated other ferrell above. PAST MEDICAL HISTORY: Significant for paroxysmal atrial fibrillation for which she is on Eliquis wit h prior history of TIA, obesity with history of gastric bypass, hypothyroidism, rheumatoid arthritis, schizoaffective disorder, bipolar disorder, prior history of a poorly-defined pituitary intervention approximately 20 years ago, and nephrolithiasis. MEDICATIONS: The patient had been taking at home and prior to admission included trazodone 200 mg or ally nightly, Ambien 10 mg orally nightly, thiamine 50 mg orally daily, Lyrica 25 mg orally twice luz maria ly, pravastatin 40 mg orally daily, Protonix 40 mg orally daily, Percocet 5/325 orally every 6 hours as needed, Synthroid 175 mcg orally daily, folic acid 1 mg orally daily, ergocalciferol 50,000 units orally weekly, Cymbalta 20 mg orally daily, vitamin B12 1000 mcg orally daily, Abilify 20 mg orally d aily, Flomax 0.4 mg orally daily, ibuprofen 800 mg orally twice daily, clopidogrel 75 mg orally daily . ALLERGIES: THE PATIENT REPORTED BEING ALLERGIC TO DEMEROL WELL IODINE, WHICH RESULTS IN A RASH . SOCIAL HISTORY: Notable for the patient being . There is no tobacco, alcohol, or illicit anna g use. She currently does not work and lives with her . FAMILY HISTORY: Negative for any inheritable renal or electrolyte disorders and was otherwise noncon tributory. PHYSICAL EXAMINATION: GENERAL APPEARANCE: I saw the patient lying in bed on telemetry. She was lethargic, but arousable a nd more verbose than she had been. VITAL SIGNS: Blood pressure is 100/67 with a heart rate of 103, oral temperature 98.9, respiratory r ate is 18, oxygen saturation was 94%. I's and O's since admission are 900/925. The remainder of the exam was as follows: HEENT: The patient was normocephalic and atraumatic without any sinus tenderness. NECK: Supple with a full range of motion. The patient generally appeared to be pale. There was no jugular venous distention that I could appreciate. CHEST: Lungs cardoza were auscultated anteriorly and had some scattered rales through both lung field s. There was no wheezing or rhonchi. Diaphragmatic excursion appeared to be bilaterally symmetrical . CARDIAC: Had a regular rate and rhythm without any rubs or gallops. ABDOMEN: Soft, mildly protuberant, but nontender, without any rebounding, guarding, or rigidity. Th ere was no hepatosplenomegaly. EXTREMITIES: Had 1+ dependent edema. NEUROLOGIC: The patient was lethargic, but arousable and did not appear to be focal. VASCULAR: Had no bruits. SKIN: Appeared to be intact. LABORATORY STUDIES: As follows: White count is 7.5, H and H is 10/31.2 with a platelet count of 198 ,000. There are 75% neutrophils, 18% lymphocytes, 7% monocytes. ESR 70. MCV is 94. INR was mildly increased at 1.16, PTT is 41.8. Lactic acid level is within normal limits. Sodium is 138, potassiu m is increased from 3.4 to 3.9, chloride is 104, bicarbonate 25, BUN/creatinine decreased to 33/2.0 w ith a glucose of 82. Hemoglobin A1c is 5.2%. Calcium is 7.3 and even after adjusting for the albumi n of 3.1, it is low at 8.1. AST/ALT is 49/19, alkaline phosphatase is 71. CPK is 1,226. Total prot ein/albumin is 6.7/3.1. TSH was within normal limits at 1.47. Procalcitonin level is elevated at 42 .8. Urinalysis was yellow, slightly cloudy with a pH of 6, specific gravity of greater than 1.030, p rotein of 30, large blood with 25-30 RBCs per high power field, negative nitrates, negative leukocyte esterase. Urine toxicology was positive only for opiates. Complement levels were within normal cortez its. Influenza is negative, as is urine for legionella antigen. Blood cultures thus far, as well as urine cultures, have no growth to date. Imaging is as stated above. IMPRESSION AND PLAN: The patient a 51-year-old female with a history of obesity and gastric bypass, history of nephrolithiasis, chronic hypotension, paroxysmal atrial fibrillation as well as history of transient ischemic attack, schizoaffective disorder, bipolar disorder, obstructive sleep apnea, rheu matoid arthritis, and prior history of pituitary intervention approximately 20 years ago, who was adm itted with an alteration in her mental status and noted to be hypotensive, more so than her baseline, with acute kidney injury. She was also noted to have rhabdomyolysis in the setting of hypokalemia e jean know she had acute kidney injury. For the patient to have hypokalemia in the setting of rhabdomy olysis while she concurrently has acute kidney injury is worrisome for the possibility that had she n ot had the rhabdomyolysis, her hypokalemia would be even more pronounced. I am thus wondering whethe r or not the hypokalemia may have resulted in the rhabdomyolysis, especially since the patient has no other events by history that could have resulted in rhabdomyolysis. If this is the case, it is uncl ear to me why this patient would become hypokalemic since she is not on any diuretics and there is no documented vomiting or diarrhea. She does not take any insulin at home. With respect to the rhabdo myolysis, the patient requires intravenous fluids to resulted in myoglobinuria and thus minimize the risk of developing acute tubular necrosis from myoglobin pigment in the urine. She is, however, note d to have multifocal pneumonia, in which case, ordinarily one would which strive for a more fluid-con servative strategy. Thus, for now, I would continue to give this patient intravenous fluids (normal saline at 100 mL per hour) and p.r.n. doses of furosemide to maintain even fluid balance. Also, to w orkup her hypokalemia, we will also check a magnesium with her next labs as well. It is possible caesar t this patient with a prior history of gastric bypass may have malabsorption of electrolytes. With r espect to the patient's hypocalcemia, her calcium is low even after correcting for her hypoalbuminemi a, and therefore it is also possible that the patient may have had a seizure that could have resulted in her CPK being elevated. Alternatively, her calcium could be low after she developed rhabdomyolys is secondary to calcium precipitation in damaged muscle. Regardless, the calcium is not low enough t hat it can be causing her any symptoms at present, and I would not replete her calcium, as this may w orsen calcification of damaged muscle. The patient is also noted to have an elevated procalcitonin l evel and bilateral infiltrates on chest x-ray, worrisome for multifocal pneumonia for which she has b een started on doxycycline and meropenem. Infectious disease followup is appreciated. Given the fac t that her urinalysis revealed proteinuria, as well as microscopic hematuria; however, we will also o rder ANCA including anti-proteinase 3 and anti-myeloperoxidase antibodies with her next labs. For no w, I would minimize use of any sedating medications in this patient. For gastrointestinal prophylaxi s, she is on pantoprazole, especially because has been started, and for venous thrombosis proph ylaxis, the Eliquis she is receiving for atrial fibrillation should suffice. The above was discussed with the patient, as well as her present at bedside. I will be following this complex patie nt closely for the above complex medical problems, and I thank you very much for the courtesy of this consultation. Stewart Key MD cc: [id number] TT: 09/15/2016 22:48:36 Confirmation # [id number] Dictation # [id number] tn
[2016-09-16] MEDS: Sodium Chloride 0.9% 1,000 ML IV SCH ×2 (02:58→12:21)
[2016-09-16] MEDS: Pantoprazole 40 mg EC Tab PO SCH (05:34)
[2016-09-16 06:40] LABS: HEMATOCRIT 30.8 % (36.0-48.0); MEAN CELL VOLUME 94.5 fL (80.0-105.0); MEAN CORPUSCULAR HEMOGLOBIN 30.4 pg (25.0-35.0); MEAN CORPUSCULAR HGB CONC 32.1 g/dl (31.0-37.0); MEAN PLATELET VOLUME 9.8 fl (7.0-11.0); PLATELET COUNT 217 10^3/uL (120.0-450.0); RED CELL DISTRIBUTION WIDTH 15.2 % (11.5-14.5); WHITE BLOOD COUNT 5.5 10^3/ul (4.5-11.0)
[2016-09-16 06:50] LABS: ADD MANUAL DIFF? YES
[2016-09-16 07:12] LABS: NEUTROPHIL 88 % (50.0-70.0)
[2016-09-16] MEDS: Levothyroxine 175 MCG TAB PO SCH (07:55)
[2016-09-16 08:00] LABS: ALB/GLOB RATIO 0.9 (1.1-1.8); ALKALINE PHOSPHATASE 67 U/L (38-133); ALT/SGPT 16 U/L (7-56); AST/SGOT 65 U/L (15-39); BILIRUBIN,TOTAL 0.5 mg/dL (0.2-1.3); BLOOD UREA NITROGEN 23 mg/dL (7-21); CARBON DIOXIDE 24 mmol/L (21-33); CHLORIDE 107 mmol/L (98-107); GFR AFRICAN-AMERICAN > 60; GLUCOSE,RANDOM 128 mg/dL (70-110); POTASSIUM 4.6 mmol/L (3.6-5.0); SODIUM 139 mmol/L (132-148); TOTAL PROTEIN 6.5 g/dL (5.8-8.3)
[2016-09-16] MEDS: MethylPREDNISolone 40 mg Vial IVP SCH ×2 (08:58→21:26)
[2016-09-16] MEDS: Meropenem 1g/NS 100mL IVPB 100 ML IVPB SCH ×2 (09:01→22:44)
--- NOTE | 2016-09-16 09:49 | CP.PCM.PCO ---
Physician Communication Note - Physician Communication Note Physician Communication Note: pt was at XR dept while rounding, will be seen by over the weekend
[2016-09-16 10:30] LABS: BAND 10 % (0-2)
[2016-09-16 10:31] LABS: HYPOCHROMIA SLIGHT
--- NOTE | 2016-09-16 10:37 | PN ---
DATE: 09/16/2016 REASON FOR CONSULTATION AND FOLLOWUP: Altered mental status, paroxysmal atrial fibrillation, history of TIA and cardiac evaluation. BRIEF CLINICAL HISTORY: A 51-year-old female with past medical history significant for anemia, histo ry of atrial fibrillation, admitted after having unresponsive episode, history of bipolar disorder, h istory of schizoaffective disorder, history of intervention approximately 20 years ago. The pat kamla is much awake and alert today. Says that she is on Eliquis since 07/10, not on Plavix. Prior to that, patient was on Plavix and now, 07/10, graphic design intern, who worked with Dr. Yip's office, Dr. Riri sinclair started on Eliquis and discontinued Plavix. Denies any chest pain, shortness of breath, any pal pitation. PHYSICAL EXAMINATION: VITAL SIGNS: Temperature afebrile, heart rate 80, blood pressure 115/58. HEENT: PERRLA. Extraocular muscles intact. NECK: Supple. No carotid bruits. No thyromegaly. CHEST: Clear to auscultation. HEART: S1, S2 regular. ABDOMEN: Soft. EXTREMITIES: Clubbing and cyanosis negative. LABORATORY DATA: Blood workup as follows: WBC 5.5, hemoglobin 9.9, hematocrit 30.8, platelet count 217. Chemistry shows sodium 113, potassium 4.6, chloride 106, carbon dioxide 24, anion gap of 13, BU N 23, creatinine 1.1. Troponin 0.02. The patient had echocardiography done yesterday that revealed ejection fraction 55%, trace aortic regurgitation, trace to mild mitral regurgitation, trace to mild tricuspid regurgitation, right ventricular systolic pressure 38. EKG showed sinus tachycardia. IMPRESSION: History of chronic anemia, syncope, bipolar disorder. Echo shows preserved left ventric ular function, mild , mild TR. CAT scan of the chest consistent with multilobar pneumonia. Othe r etiology, neoplasm is less likely. Echo shows preserved left ventricular function, trace aortic re gurgitation, trace to mild mitral regurgitation, trace to mild tricuspid regurgitation, right ventric ular systolic pressure 38, obesity, rhabdomyolysis. RECOMMENDATION: Continue IV fluid. Start apixaban 5 mg b.i.d., Eliquis for paroxysmal atrial fibril lation. Will follow with you. CVS status is stable. Consider discontinuing telemetry. Thank you, Dr. Malave, for providing the opportunity in taking care of this patient. Gisselle Parker MD cc: [id number] TT: 09/16/2016 10:36:42 Confirmation # [id number] Dictation # [id number] rn
--- NOTE | 2016-09-16 11:01 | CP.CCUPN ---
CCU Subjective - Physician Review Events Since Last Encounter (Free Text): 09/16/16 10:55 51yo female pt in no acute distress. No events overnight. Pt stated her respiratory status is much improved. Denies any chest pain or shortness of breath at present CCU Objective - Vital Signs / Intake & Output Intake and Output (Last 8hrs): Intake & Output 09/15/16 09/16/16 09/16/16 22:59 06:59 14:59 Intake Total 600 3360 Output Total 500 3750 Balance 100 -390 Weight 248 lb 3.2 oz Intake: IV 1200 right chest wall 1200 Oral 600 2160 Output: Urine 500 3750 Urine, Voided 500 3750 Other: # Bowel Movements 0 - Physical Exam Head: Positive for: Atraumatic Pupils: Positive for: PERRL Conjunctiva: Positive for: Normal Mouth: Positive for: Moist Mucous Membranes Respiratory/Chest: Positive for: Clear to Auscultation, Good Air Exchange. Negative for: Respiratory Distress Cardiovascular: Positive for: Regular Rate and Rhythm. Negative for: Murmurs Abdomen: Positive for: Normal Bowel Sounds. Negative for: Tenderness, Distention Upper Extremity: Positive for: Normal Inspection. Negative for: Edema Lower Extremity: Positive for: Edema (non -pitting). Negative for: Erythema Neurological: Positive for: Speech Normal, Motor Func Grossly Intact Skin: Positive for: Warm, Dry. Negative for: Rashes Psychiatric: Positive for: Alert, Oriented x 3, Normal Insight - Medications Active Medications: Active Medications Generic Name Dose Route Start Last Admin Trade Name Freq PRN Reason Stop Dose Admin Acetaminophen 650 mg 09/15/16 11:11 Tylenol 325mg Tab PO Q6H PRN Pain, moderate (4-7) Apixaban 5 mg 09/15/16 10:00 09/16/16 09:02 Eliquis PO 5 mg BID KEITH Administration Protocol Aripiprazole 20 mg 09/15/16 10:00 09/16/16 09:03 Abilify PO 20 mg DAILY KEITH Administration Protocol Duloxetine HCl 20 mg 09/15/16 10:00 09/16/16 09:02 Cymbalta PO 20 mg DAILY KEITH Administration Folic Acid 1 mg 09/15/16 10:00 09/16/16 09:02 Folic Acid PO 1 mg DAILY KEITH Administration Guaifenesin/Dextromethorphan 10 ml 09/14/16 20:55 Robitussin Dm PO Q4H PRN Cough Doxycycline Hyclate 100 mg/ 100 mls @ 100 mls/hr 09/14/16 22:00 09/16/16 10:13 Sodium Chloride IVPB 09/21/16 22:01 100 mls/hr Q12 KEITH Administration Protocol Meropenem 1g/NS 100mL IVPB 100 mls @ 100 mls/hr 09/14/16 22:00 09/16/16 09:01 Meropenem 1g/Ns 100ml Ivpb IVPB 09/21/16 22:01 100 mls/hr Q12 KEITH Administration Protocol Sodium Chloride 1,000 mls @ 100 mls/hr 09/15/16 11:30 09/16/16 02:58 Sodium Chloride 0.9% IV 09/16/16 23:59 100 mls/hr .Q10H KEITH Administration Levothyroxine Sodium 175 mcg 09/15/16 07:30 09/16/16 07:55 Synthroid PO 175 mcg ACB KEITH Administration Methylprednisolone 20 mg 09/15/16 22:00 09/16/16 08:58 Solu-Medrol IVP 20 mg Q12 KEITH Administration Oxycodone/Acetaminophen 1 tab 09/14/16 18:23 09/15/16 22:40 Percocet 5/325 Mg Tab PO 09/17/16 18:24 1 tab Q6H PRN Administration Pain, severe (8-10) Pantoprazole Sodium 40 mg 09/15/16 06:30 09/16/16 05:34 Protonix Ec Tab PO 40 mg 0630 KEITH Administration Pregabalin 25 mg 09/15/16 10:00 09/16/16 09:02 Lyrica PO 25 mg BID KEITH Administration Trazodone HCl 200 mg 09/14/16 22:00 09/15/16 22:38 Desyrel PO 200 mg HS KEITH Administration Zolpidem Tartrate 10 mg 09/14/16 18:22 09/15/16 23:26 Ambien PO 10 mg HS PRN Administration Insomnia Protocol - Patient Studies Lab Studies: Lab Studies 09/16/16 09/16/16 09/15/16 Range/Units 07:09 06:00 21:26 WBC 5.5 D (4.5-11.0) 10^3/ul RBC 3.26 L (3.5-6.1) 10^6/uL Hgb 9.9 L (12.0-16.0) gm/dL Hct 30.8 L (36.0-48.0) % MCV 94.5 (80.0-105.0) fL MCH 30.4 (25.0-35.0) pg MCHC 32.1 (31.0-37.0) g/dl RDW 15.2 H (11.5-14.5) % Plt Count 217 (120.0-450.0) 10^3/uL MPV 9.8 (7.0-11.0) fl Neutrophils % (Manual) 88 H (50.0-70.0) % Band Neutrophils % 10 H (0-2) % Lymphocytes % (Manual) 2 L (22.0-35.0) % Monocytes % (Manual) TEST NOT PERFORMED Hypochromasia Slight ESR (0.0-20.0) mm/hr pCO2 (35-45) mm/Hg pO2 (80-100) mm/Hg HCO3 (21-28) mmol/L ABG pH (7.35-7.45) ABG Total CO2 (22-28) mmol.L ABG O2 Saturation (95-98) % ABG Base Excess (-2.0-3.0) mmol/L ABG Potassium (3.6-5.2) mmol/L Glucose (65-105) mg/dl Lactate (0.7-2.1) mmol/L FiO2 % Sodium 139 (132-148) mmol/L Potassium 4.6 (3.6-5.0) mmol/L Chloride 107 (98-107) mmol/L Carbon Dioxide 24 (21-33) mmol/L Anion Gap 13 (10-20) BUN 23 H (7-21) mg/dL Creatinine 1.1 (0.5-1.4) mg/dL Est GFR ( Amer) > 60 Est GFR (Non-Af Amer) 53 POC Glucose (mg/dL) 122 H 80 (65-110) mg/dL Random Glucose 128 H (70-110) mg/dL Hemoglobin A1c (4.2-6.5) % Calcium 8.0 L (8.4-10.5) mg/dL Magnesium 2.0 (1.7-2.2) mg/dL Total Bilirubin 0.5 (0.2-1.3) mg/dL AST 65 H (15-39) U/L ALT 16 (7-56) U/L Alkaline Phosphatase 67 (38-133) U/L Total Creatine Kinase (35-230) U/L CK-MB (CK-2) (0.0-3.6) ng/mL CK-MB (CK-2) % (2.5-3.0) % C-React Prot High Sens (1.00-3.00) mg/L Total Protein 6.5 (5.8-8.3) g/dL Albumin 3.0 (3.0-4.8) g/dL Globulin 3.5 gm/dL Albumin/Globulin Ratio 0.9 L (1.1-1.8) TSH 3rd Generation (0.46-4.68) mIU/mL Arterial Blood Potassium (3.6-5.2) mmol/L Complement C3 (88.0-165.0) mg/dL Complement C4 (14.0-44.0) mg/dL Hepatitis A IgM Ab (NEGATIVE) Hep Bs Antigen (NEGATIVE) Hep B Core IgM Ab (NEGATIVE) Hepatitis C Antibody (NEGATIVE) Ur L.pneumophila Ag (NEGATIVE) 09/15/16 09/15/16 09/15/16 Range/Units 16:30 16:15 14:10 WBC (4.5-11.0) 10^3/ul RBC (3.5-6.1) 10^6/uL Hgb (12.0-16.0) gm/dL Hct (36.0-48.0) % MCV (80.0-105.0) fL MCH (25.0-35.0) pg MCHC (31.0-37.0) g/dl RDW (11.5-14.5) % Plt Count (120.0-450.0) 10^3/uL MPV (7.0-11.0) fl Neutrophils % (Manual) (50.0-70.0) % Band Neutrophils % (0-2) % Lymphocytes % (Manual) (22.0-35.0) % Monocytes % (Manual) Hypochromasia ESR 70 H (0.0-20.0) mm/hr pCO2 42 (35-45) mm/Hg pO2 60.0 L (80-100) mm/Hg HCO3 23.7 (21-28) mmol/L ABG pH 7.36 (7.35-7.45) ABG Total CO2 25.0 (22-28) mmol.L ABG O2 Saturation 95.0 (95-98) % ABG Base Excess -1.8 (-2.0-3.0) mmol/L ABG Potassium 4.2 (3.6-5.2) mmol/L Glucose 98 (65-105) mg/dl Lactate 0.5 L (0.7-2.1) mmol/L FiO2 28.0 % Sodium 140.0 (132-148) mmol/L Potassium (3.6-5.0) mmol/L Chloride 110.0 H (98-107) mmol/L Carbon Dioxide (21-33) mmol/L Anion Gap (10-20) BUN (7-21) mg/dL Creatinine (0.5-1.4) mg/dL Est GFR ( Amer) Est GFR (Non-Af Amer) POC Glucose (mg/dL) 120 H (65-110) mg/dL Random Glucose (70-110) mg/dL Hemoglobin A1c (4.2-6.5) % Calcium (8.4-10.5) mg/dL Magnesium (1.7-2.2) mg/dL Total Bilirubin (0.2-1.3) mg/dL AST (15-39) U/L ALT (7-56) U/L Alkaline Phosphatase (38-133) U/L Total Creatine Kinase 2688 H (35-230) U/L CK-MB (CK-2) 5.9 H (0.0-3.6) ng/mL CK-MB (CK-2) % 0.2 L (2.5-3.0) % C-React Prot High Sens > 15.00 H (1.00-3.00) mg/L Total Protein (5.8-8.3) g/dL Albumin (3.0-4.8) g/dL Globulin gm/dL Albumin/Globulin Ratio (1.1-1.8) TSH 3rd Generation (0.46-4.68) mIU/mL Arterial Blood Potassium 4.2 (3.6-5.2) mmol/L Complement C3 139.0 (88.0-165.0) mg/dL Complement C4 46.0 H (14.0-44.0) mg/dL Hepatitis A IgM Ab Negative (NEGATIVE) Hep Bs Antigen Negative (NEGATIVE) Hep B Core IgM Ab Negative (NEGATIVE) Hepatitis C Antibody Negative (NEGATIVE) Ur L.pneumophila Ag Negative (NEGATIVE) 09/15/16 09/15/16 09/14/16 Range/Units 11:24 09:00 23:00 WBC (4.5-11.0) 10^3/ul RBC (3.5-6.1) 10^6/uL Hgb (12.0-16.0) gm/dL Hct (36.0-48.0) % MCV (80.0-105.0) fL MCH (25.0-35.0) pg MCHC (31.0-37.0) g/dl RDW (11.5-14.5) % Plt Count (120.0-450.0) 10^3/uL MPV (7.0-11.0) fl Neutrophils % (Manual) (50.0-70.0) % Band Neutrophils % (0-2) % Lymphocytes % (Manual) (22.0-35.0) % Monocytes % (Manual) Hypochromasia ESR (0.0-20.0) mm/hr pCO2 (35-45) mm/Hg pO2 (80-100) mm/Hg HCO3 (21-28) mmol/L ABG pH (7.35-7.45) ABG Total CO2 (22-28) mmol.L ABG O2 Saturation (95-98) % ABG Base Excess (-2.0-3.0) mmol/L ABG Potassium (3.6-5.2) mmol/L Glucose (65-105) mg/dl Lactate (0.7-2.1) mmol/L FiO2 % Sodium (132-148) mmol/L Potassium (3.6-5.0) mmol/L Chloride (98-107) mmol/L Carbon Dioxide (21-33) mmol/L Anion Gap (10-20) BUN (7-21) mg/dL Creatinine (0.5-1.4) mg/dL Est GFR ( Amer) Est GFR (Non-Af Amer) POC Glucose (mg/dL) 76 (65-110) mg/dL Random Glucose (70-110) mg/dL Hemoglobin A1c 5.2 (4.2-6.5) % Calcium (8.4-10.5) mg/dL Magnesium (1.7-2.2) mg/dL Total Bilirubin (0.2-1.3) mg/dL AST (15-39) U/L ALT (7-56) U/L Alkaline Phosphatase (38-133) U/L Total Creatine Kinase (35-230) U/L CK-MB (CK-2) (0.0-3.6) ng/mL CK-MB (CK-2) % (2.5-3.0) % C-React Prot High Sens (1.00-3.00) mg/L Total Protein (5.8-8.3) g/dL Albumin (3.0-4.8) g/dL Globulin gm/dL Albumin/Globulin Ratio (1.1-1.8) TSH 3rd Generation 1.47 (0.46-4.68) mIU/mL Arterial Blood Potassium (3.6-5.2) mmol/L Complement C3 (88.0-165.0) mg/dL Complement C4 (14.0-44.0) mg/dL Hepatitis A IgM Ab (NEGATIVE) Hep Bs Antigen (NEGATIVE) Hep B Core IgM Ab (NEGATIVE) Hepatitis C Antibody (NEGATIVE) Ur L.pneumophila Ag Negative (NEGATIVE) Laboratory Results - last 24 hr 09/14/16 09/15/16 09/15/16 23:00 09:00 11:24 WBC RBC Hgb Hct MCV MCH MCHC RDW Plt Count MPV Neutrophils % (Manual) Band Neutrophils % Lymphocytes % (Manual) Monocytes % (Manual) Hypochromasia ESR pCO2 pO2 HCO3 ABG pH ABG Total CO2 ABG O2 Saturation ABG Base Excess ABG Potassium Sodium Chloride Glucose Lactate FiO2 Potassium Carbon Dioxide Anion Gap BUN Creatinine Est GFR ( Amer) Est GFR (Non-Af Amer) POC Glucose (mg/dL) 76 Random Glucose Hemoglobin A1c 5.2 Calcium Magnesium Total Bilirubin AST ALT Alkaline Phosphatase Total Creatine Kinase CK-MB (CK-2) CK-MB (CK-2) % C-React Prot High Sens Total Protein Albumin Globulin Albumin/Globulin Ratio TSH 3rd Generation 1.47 Arterial Blood Potassium Complement C3 Complement C4 Hepatitis A IgM Ab Hep Bs Antigen Hep B Core IgM Ab Hepatitis C Antibody Ur L.pneumophila Ag Negative 09/15/16 09/15/16 09/15/16 14:10 16:15 16:30 WBC RBC Hgb Hct MCV MCH MCHC RDW Plt Count MPV Neutrophils % (Manual) Band Neutrophils % Lymphocytes % (Manual) Monocytes % (Manual) Hypochromasia ESR 70 H pCO2 42 pO2 60.0 L HCO3 23.7 ABG pH 7.36 ABG Total CO2 25.0 ABG O2 Saturation 95.0 ABG Base Excess -1.8 ABG Potassium 4.2 Sodium 140.0 Chloride 110.0 H Glucose 98 Lactate 0.5 L FiO2 28.0 Potassium Carbon Dioxide Anion Gap BUN Creatinine Est GFR ( Amer) Est GFR (Non-Af Amer) POC Glucose (mg/dL) 120 H Random Glucose Hemoglobin A1c Calcium Magnesium Total Bilirubin AST ALT Alkaline Phosphatase Total Creatine Kinase 2688 H CK-MB (CK-2) 5.9 H CK-MB (CK-2) % 0.2 L C-React Prot High Sens > 15.00 H Total Protein Albumin Globulin Albumin/Globulin Ratio TSH 3rd Generation Arterial Blood Potassium 4.2 Complement C3 139.0 Complement C4 46.0 H Hepatitis A IgM Ab Negative Hep Bs Antigen Negative Hep B Core IgM Ab Negative Hepatitis C Antibody Negative Ur L.pneumophila Ag Negative 09/15/16 09/16/16 09/16/16 21:26 06:00 07:09 WBC 5.5 D RBC 3.26 L Hgb 9.9 L Hct 30.8 L MCV 94.5 MCH 30.4 MCHC 32.1 RDW 15.2 H Plt Count 217 MPV 9.8 Neutrophils % (Manual) 88 H Band Neutrophils % 10 H Lymphocytes % (Manual) 2 L Monocytes % (Manual) TEST NOT PERFORMED Hypochromasia Slight ESR pCO2 pO2 HCO3 ABG pH ABG Total CO2 ABG O2 Saturation ABG Base Excess ABG Potassium Sodium 139 Chloride 107 Glucose Lactate FiO2 Potassium 4.6 Carbon Dioxide 24 Anion Gap 13 BUN 23 H Creatinine 1.1 Est GFR ( Amer) > 60 Est GFR (Non-Af Amer) 53 POC Glucose (mg/dL) 80 122 H Random Glucose 128 H Hemoglobin A1c Calcium 8.0 L Magnesium 2.0 Total Bilirubin 0.5 AST 65 H ALT 16 Alkaline Phosphatase 67 Total Creatine Kinase CK-MB (CK-2) CK-MB (CK-2) % C-React Prot High Sens Total Protein 6.5 Albumin 3.0 Globulin 3.5 Albumin/Globulin Ratio 0.9 L TSH 3rd Generation Arterial Blood Potassium Complement C3 Complement C4 Hepatitis A IgM Ab Hep Bs Antigen Hep B Core IgM Ab Hepatitis C Antibody Ur L.pneumophila Ag Fingerstick Blood Sugar Results: 122 Review of Systems - Review of Systems All systems: reviewed and no additional remarkable complaints except Critical Care Progress Note - Ventilator Checklist Head of Bed 30 Degrees: Yes PUD Prophalyxis: Yes DVT Prophylaxis: Yes - Nutrition Nutrition: Nutrition Category Date Time Status Regular Diet [DIET] Diets 09/14/16 Dinner Ordered Assessment/Plan - Assessment and Plan (Free Text) Plan: Afib \ PNA \ [place] \ RENA \ Psychiatric condition -hemodynamic monitoring to maintain MAP>65; currently stable -continue anticoagulation as per cardiology team and monitor for bleeding -syncope w\u -o2 supplementation to maintain Spo2>90 Pao2>60; currently comfortable on NC -continue nebs and taper off steroids -CT Chest reviewed and Right Lung PNA noted -continue ABX as per ID team and f\u cultures -f\u Bun\Cr and U\o; hold off IVF as renal function much improved -nephrology team following -PO diet and aspiration precautions -nuerology team f\u -psych team f\u -DVT \ PUD prophylaxis
--- NOTE | 2016-09-16 13:22 | CP.PCM.PN ---
Subjective - Date & Time of Evaluation Date of Evaluation: 09/16/16 Time of Evaluation: 08:40 - Subjective Subjective: Patient still feels tired and fatigued but is more awake today, less cough, less shortness of breath, no fevers overnight. Objective - Vital Signs/Intake and Output Vital Signs (last 24 hours): Temp Pulse Resp BP Pulse Ox 98.2 F 80 20 115/58 L 94 L 09/16/16 06:00 09/16/16 06:00 09/16/16 06:00 09/16/16 06:00 09/16/16 06:00 Intake and Output: 09/16/16 09/16/16 06:59 18:59 Intake Total 3360 Output Total 3750 Balance -390 - Medications Medications: Current Medications Acetaminophen (Tylenol 325mg Tab) 650 mg PO Q6H PRN PRN Reason: Pain, moderate (4-7) Apixaban (Eliquis) 5 mg PO BID KEITH PRN Reason: Protocol Last Admin: 09/15/16 17:51 Dose: 5 mg Aripiprazole (Abilify) 20 mg PO DAILY KEITH PRN Reason: Protocol Last Admin: 09/15/16 10:17 Dose: 20 mg Duloxetine HCl (Cymbalta) 20 mg PO DAILY [facility] Last Admin: 09/15/16 10:17 Dose: 20 mg Folic Acid (Folic Acid) 1 mg PO DAILY [facility] Last Admin: 09/15/16 10:17 Dose: 1 mg Guaifenesin/Dextromethorphan (Robitussin Dm) 10 ml PO Q4H PRN PRN Reason: Cough Doxycycline Hyclate 100 mg/ (Sodium Chloride) 100 mls @ 100 mls/hr IVPB Q12 KEITH PRN Reason: Protocol Stop: 09/21/16 22:01 Last Admin: 09/15/16 23:24 Dose: 100 mls/hr Meropenem 1g/NS 100mL IVPB (Meropenem 1g/Ns 100ml Ivpb) 100 mls @ 100 mls/hr IVPB Q12 KEITH PRN Reason: Protocol Stop: 09/21/16 22:01 Last Admin: 09/15/16 22:38 Dose: 100 mls/hr Sodium Chloride (Sodium Chloride 0.9%) 1,000 mls @ 100 mls/hr IV .Q10H KEITH Stop: 09/16/16 23:59 Last Admin: 09/16/16 02:58 Dose: 100 mls/hr Levothyroxine Sodium (Synthroid) 175 mcg PO ACB [facility] Last Admin: 09/16/16 07:55 Dose: 175 mcg Methylprednisolone (Solu-Medrol) 20 mg IVP Q12 [facility] Last Admin: 09/15/16 22:39 Dose: 20 mg Oxycodone/Acetaminophen (Percocet 5/325 Mg Tab) 1 tab PO Q6H PRN PRN Reason: Pain, severe (8-10) Stop: 09/17/16 18:24 Last Admin: 09/15/16 22:40 Dose: 1 tab Pantoprazole Sodium (Protonix Ec Tab) 40 mg PO 0630 [facility] Last Admin: 09/16/16 05:34 Dose: 40 mg Pregabalin (Lyrica) 25 mg PO BID [facility] Last Admin: 09/15/16 17:51 Dose: 25 mg Trazodone HCl (Desyrel) 200 mg PO HS [facility] Last Admin: 09/15/16 22:38 Dose: 200 mg Zolpidem Tartrate (Ambien) 10 mg PO HS PRN; Protocol PRN Reason: Insomnia Last Admin: 09/15/16 23:26 Dose: 10 mg - Labs Labs: 09/16/16 06:00 09/15/16 06:42 PT 12.5 Seconds (9.9-11.8) H 09/14/16 13:30 INR 1.16 (0.93-1.08) H 09/14/16 13:30 APTT 41.8 Seconds (23.7-30.8) H 09/14/16 13:30 - Constitutional Appears: Non-toxic, No Acute Distress - Head Exam Head Exam: NORMAL INSPECTION - ENT Exam ENT Exam: Mucous Membranes Moist - Neck Exam Neck Exam: absent: Lymphadenopathy, Meningismus - Respiratory Exam Respiratory Exam: Decreased Breath Sounds - Cardiovascular Exam Cardiovascular Exam: +S1, +S2 - GI/Abdominal Exam GI & Abdominal Exam: Soft. absent: Tenderness Assessment and Plan - Assessment and Plan (Free Text) Plan: Assessment severe sepsis with acute change in sensorium and acute renal failure secondary to right sided healthcare-associated pneumonia with possible gram positive cocci and/or gram negative bacilli, slowly improving rheumatoid arthritis history of transient ischemic attack obstructive sleep apnea Morbid obesity with BMI 40 hypothyroidism bipolar disorder shcizoaffective disorder, S/P gastric bypass surgery Plan continue Doxycycline and Merrem (day 2) pending sputum cx; blood cx are negative ; reviewed CXR and CT scan which showed the right-lower lobe consolidation; PCT is elevated Will continue to follow clinically
[2016-09-16] MEDS ORDERED: Iodixanol 320 MG/ML 100 ML BOTTLE IV ONE (16:23)
[2016-09-16] MEDS: Oxycodone/Acetaminophen 5/325 mg Tab PO PRN (21:33)
[2016-09-17] MEDS: Pantoprazole 40 mg EC Tab PO SCH (05:30)
[2016-09-17] MEDS: Sodium Chloride 0.9% 1,000 ML IV SCH (07:13)
[2016-09-17] MEDS: Levothyroxine 175 MCG TAB PO SCH (08:11)
[2016-09-17] MEDS: MethylPREDNISolone 40 mg Vial IVP SCH ×2 (09:38→21:33)
--- NOTE | 2016-09-17 09:40 | CP.PCM.PCO ---
Addendum Addendum: I met with patient at bedside. Patient is alert and well-oriented to month, year , location & circumstances. She is calm and does not appear to be any distress and she is responsive to questioning. Thought process is coherent and responses are relevant and consistent. Patient was not aware that a psychiatric consultation was requested for her. At this time she defers on this intervention indicating that she would prefer to focus on her medical care. Patient follows up with a provider at [facility] and currently feels psychiatrically stable. Patient is coherent and denies any perceptual disturbance. Patient denies any acute mood issues, wishes, suicidal thoughts or thoughts to harm others. Patient indicates that she is prescribed klonopin prn for anxiety which she takes twice weekly, unknown dose. Denies current anxiety. Will initiate klonopin 0.5 mg po daily only on a prn basis for anxiety. Patient was informed that if she should change his mind about engaging in psychiatric care while she's being medically treated on the unit she may request psychiatric follow-up at any time. Patient expresses this understanding. Psychiatry respects patient's wishes at this time and will sign off as she does not appear to be a danger to herself or others due to suicidal or homicidal thoughts, florid psychosis or disorganization.
[2016-09-17] MEDS: Meropenem 1g/NS 100mL IVPB 100 ML IVPB SCH ×2 (10:30→21:26)
[2016-09-17] MEDS ORDERED: Albuterol 0.083% Inhal Sol (2.5 mg/3 mL) UD IH PRN (11:50)
--- NOTE | 2016-09-17 12:06 | CP.PCM.PN ---
Subjective - Date & Time of Evaluation Date of Evaluation: 09/17/16 Time of Evaluation: 09:30 - Subjective Subjective: Currently seen lying in bed with 2L oxygen . Pt states that she felt subjectively SOb when she walked from the bed to the bathroom. Currently afebrile, without any productive sputum or new complaints. She states that she has been dealing with asthma for most of her life. She uses her Albuterol >3x daily for many years. It seems that she has lost follow up with any exhibit technician as an outpatient. Objective - Vital Signs/Intake and Output Vital Signs (last 24 hours): Temp Pulse Resp BP Pulse Ox 97.4 F L 69 20 130/88 94 L 09/17/16 07:54 09/17/16 07:54 09/17/16 07:54 09/17/16 07:54 09/17/16 07:54 Intake and Output: 09/17/16 09/17/16 06:59 18:59 Intake Total 360 120 Balance 360 120 - Medications Medications: Current Medications Acetaminophen (Tylenol 325mg Tab) 650 mg PO Q6H PRN PRN Reason: Pain, moderate (4-7) Albuterol Sulfate (Albuterol 0.042% Inhal Marcella (1.25mg/3ml) Ud) 1.25 mg IH Q2H PRN PRN Reason: Shortness of Breath Apixaban (Eliquis) 5 mg PO BID KEITH PRN Reason: Protocol Last Admin: 09/17/16 09:38 Dose: 5 mg Aripiprazole (Abilify) 20 mg PO DAILY KEITH PRN Reason: Protocol Last Admin: 09/17/16 09:38 Dose: 20 mg Budesonide (Pulmicort Respules) 0.5 mg IH [id number] KEITH Clonazepam (Klonopin) 0.5 mg PO DAILY PRN; Protocol PRN Reason: Anxiety Duloxetine HCl (Cymbalta) 20 mg PO DAILY [facility] Last Admin: 09/17/16 10:30 Dose: 20 mg Folic Acid (Folic Acid) 1 mg PO DAILY [facility] Last Admin: 09/17/16 09:38 Dose: 1 mg Guaifenesin/Dextromethorphan (Robitussin Dm) 10 ml PO Q4H PRN PRN Reason: Cough Doxycycline Hyclate 100 mg/ (Sodium Chloride) 100 mls @ 100 mls/hr IVPB Q12 KEITH PRN Reason: Protocol Stop: 09/21/16 22:01 Last Admin: 09/17/16 11:47 Dose: 100 mls/hr Meropenem 1g/NS 100mL IVPB (Meropenem 1g/Ns 100ml Ivpb) 100 mls @ 100 mls/hr IVPB Q12 KEITH PRN Reason: Protocol Stop: 09/21/16 22:01 Last Admin: 09/17/16 10:30 Dose: 100 mls/hr Levothyroxine Sodium (Synthroid) 175 mcg PO ACB [facility] Last Admin: 09/17/16 08:11 Dose: 175 mcg Methylprednisolone (Solu-Medrol) 20 mg IVP Q12 [facility] Last Admin: 09/17/16 09:38 Dose: 20 mg Oxycodone/Acetaminophen (Percocet 5/325 Mg Tab) 1 tab PO Q6H PRN PRN Reason: Pain, severe (8-10) Stop: 09/17/16 18:24 Last Admin: 09/16/16 21:33 Dose: 1 tab Pantoprazole Sodium (Protonix Ec Tab) 40 mg PO 0630 [facility] Last Admin: 09/17/16 05:30 Dose: 40 mg Pregabalin (Lyrica) 25 mg PO BID [facility] Last Admin: 09/17/16 10:30 Dose: 25 mg Trazodone HCl (Desyrel) 200 mg PO HS [facility] Last Admin: 09/16/16 21:26 Dose: 200 mg Zolpidem Tartrate (Ambien) 10 mg PO HS PRN; Protocol PRN Reason: Insomnia Last Admin: 09/16/16 21:26 Dose: 10 mg - Labs Labs: 09/16/16 06:00 09/16/16 06:00 PT 12.5 Seconds (9.9-11.8) H 09/14/16 13:30 INR 1.16 (0.93-1.08) H 09/14/16 13:30 APTT 41.8 Seconds (23.7-30.8) H 09/14/16 13:30 - Constitutional Appears: Well, No Acute Distress - Head Exam Head Exam: ATRAUMATIC, NORMAL INSPECTION - Eye Exam Eye Exam: EOMI, Normal appearance Pupil Exam: NORMAL ACCOMODATION - ENT Exam ENT Exam: Mucous Membranes Moist, Normal Exam - Neck Exam Neck Exam: Full ROM - Respiratory Exam Respiratory Exam: Clear to Ausculation Bilateral, NORMAL BREATHING PATTERN - Cardiovascular Exam Cardiovascular Exam: REGULAR RHYTHM - GI/Abdominal Exam GI & Abdominal Exam: Soft, Normal Bowel Sounds - Back Exam Back Exam: NORMAL INSPECTION - Neurological Exam Neurological Exam: Alert, Awake, CN II-XII Intact, Oriented x3 - Psychiatric Exam Psychiatric exam: Normal Affect, Normal Mood - Skin Skin Exam: Normal Color Assessment and Plan - Assessment and Plan (Free Text) Assessment: 51y/o F w/ Long standing Asthma admitted for increased SOB SOB / Obstructive Lung Disease Started on Albuterol q2 hrs PRN Solumedrol 20mg q12 hrs. Started on oxygen to keep PA02> 60. Need ABG The patient has a history of panic attacks and maybe making her SOb worse. CT chest reviewed, shows some GGO , no signs of acute PNA. On Empiric ABX, I.D following. Awaiting Autoimmune work-up with Pending markers. Would need PFt's once improved to categorize her Obstructive Lung Disease.
--- NOTE | 2016-09-17 13:20 | PN ---
DATE: 09/17/2016 The patient is in bed in no acute distress, nontoxic. On exam, temperature is 98, blood pressure is 130/80, respiratory rate of 18. EXAMINATION OF HEENT: Unremarkable. NECK: Supple. LUNGS: Have decreased breath sounds. HEART: Normal S1, S2. ABDOMINAL EXAMINATION: Soft, nontender. LABORATORY EXAMINATION: Reveals a white count of 5, hemoglobin of 9, platelets of 217. Chemistries reveal the BUN of 23, creatinine of 1.1, and procalcitonin of 42. Urinalysis is noted. Blood cultur es and urine cultures are negative. Review of the orders reveals the patient to be on doxycycline and meropenem. ASSESSMENT AND PLAN: This is a 51-year-old female with severe sepsis, acute change in sensorium, acu te renal failure secondary to right-sided healthcare-associated pneumonia, possible gram-positive estefania ci, possible gram-negative abel, in a patient with history of rheumatoid arthritis, and TIA, obstructi ve sleep apnea, morbid obesity with a BMI of 40, hypothyroidism, bipolar disorder, schizoaffective di sorder, history of gastric bypass on day #3 of doxycycline and meropenem. The patient appears to be improving. Dr. Keita's note is reviewed and appreciated. Alexander Bustamante MD cc: 350 TT: 09/17/2016 13:19:23 Confirmation # [id number] Dictation # [id number] yuli
--- NOTE | 2016-09-17 14:14 | PN ---
DATE: 09/17/2016 Hospital visit on the medical floor For Dr. Malave. Please find my note from 09/16/2016 that is not listed for this patient. SUBJECTIVE: The patient is a 51-year-old female seen sitting up in bed and now reporting that she is feeling much more alert, in no acute distress, being treated for pneumonia with elevated procalciton in level with the patient now resting comfortably, ambulating with assistance. PHYSICAL EXAMINATION: VITAL SIGNS: Temperature 97.4, pulse 69, respirations 20, blood pressure 130/88, pulse ox 94%. HEENT: Unremarkable. NECK: Supple. HEART: Regular rate. LUNGS: Minimal decreased breath sounds on the right. ABDOMEN: Obese, soft, and nontender. EXTREMITIES: Faint +1 edema. NEUROLOGIC: Awake, alert and oriented this visit. LABORATORY DATA: The patient's labs were done. White blood cell count of 5.5. Again, these are lab s from yesterday. White count of 5.5, hemoglobin 9.9, hematocrit 30.8, platelet count of 217,000 wit h a chem metabolic panel within normal limits, a nonfasting glucose of 176 yesterday with urine showi ng large amount of blood. ASSESSMENT: Systemic inflammatory response syndrome, severe sepsis, pneumonia, history of transient ischemic attack, bipolar disorder, acute renal failure, resolving, hypokalemia, rhabdomyolysis, schizoaffective disorder, hypothyroidism, history of sleep apnea. PLAN: After conversation with Dr. Malave, the plan is to continue present medical regimen as per co nsultants with her labs to be monitored in the morning with ambulation only with assistance. Ronal Kahn MD cc: [id number] TT: 09/17/2016 14:13:56 Confirmation # [id number] Dictation # [id number] jeremias
--- NOTE | 2016-09-17 15:46 | PN ---
DATE: 09/17/2016 This is a 51-year-old woman. CHIEF COMPLAINT: Follow up for change in mental status and questionable seizure. SUBJECTIVE: The patient seen and examined at bedside. She is doing much better. She is being treat ed for underlying pneumonia with elevated prolactin. She is resting comfortably. Ambulates with ass istance was her cane. No syncopal episodes. She is on Eliquis 5 mg p.o. b.i.d. for stroke preventio n. She is on 175 mcg of her levothyroxine for hypothyroidism. She is on Lyrica for neuropathic pain for 25 mg p.o. b.i.d. PAST MEDICAL HISTORY: History of obesity, gastric bypass surgery, history of nephrolithiasis, chroni c hypertension, paroxysmal AFib on Eliquis, history of TIAs in the past, schizoaffective disorder, bi polar disorder, sleep apnea, rheumatoid arthritis, history of prior intervention approximately 20 years ago. REVIEW OF SYSTEMS: A 14-point review of systems is negative except for the HPI. ALLERGIES: IODINE CONTRAST MEDIA, WELL MEPERIDINE. SOCIAL HISTORY: No illicit drug use, smoking, or ETOH abuse. FAMILY HISTORY: Noncontributory. MEDICATIONS: Reviewed via nurse's reconciliation sheet. PHYSICAL EXAMINATION: VITAL SIGNS: Temperature 97.4, pulse rate is 69, blood pressure 130/88, respiratory rate 20, oxygen saturation 94% via nasal cannula. GENERAL EXAMINATION: The patient is sitting up in bed in no acute distress. HENT: Atraumatic, normocephalic. PERRLA, extraocular muscles intact. NECK: Supple, no JVD, no adenopathy noted. LUNGS: Has decreased breath sounds bilaterally, but few scattered rhonchi. HEART: S1, S2, normal rate and rhythm. No murmurs, rubs, or gallops. ABDOMEN: Soft, nontender, nondistended. Bowel sounds are present. EXTREMITIES: Has 1+ dependent edema. Peripheral pulses 2+ felt bilaterally. NEUROLOGIC EXAMINATION: The patient is alert, oriented to person, place, month, and year. Speech is fluent without any errors. Cranial nerves II-XII are intact. MOTOR EXAMINATION: Moves all extremities equally. No apparent seen. DTRs are 1+ throughout. COORDINATION: [id number] intact. SENSORY EXAMINATION: Light touch, pinprick, proprioception, vibration is intact. Decreased vibratio n of the toes. GAIT: Deferred for now. LABORATORIES: Sodium is 139, potassium 4.6, chloride 107, carbon dioxide 24, BUN of 23, creatinine 1 .1. Random glucose of 128. ASSESSMENT AND PLAN: This is a 51-year-old woman with history of obesity, gastric bypass surgery, hi story of nephrolithiasis, chronic hypertension, paroxysmal atrial fibrillation on Eliquis, history of transient ischemic attack, history of schizoaffective disorder, bipolar disorder, obstructive sleep apnea, rheumatoid arthritis, prior history intervention 20 years ago. Was initially admitted f or altered mental status and noted to be hypotensive with blood pressures of 80/45 initially and was given IV fluids, and had acute kidney injury. Also had rhabdomyolysis in setting of hypokalemia, i ch was eventually stabilized. I was consulted for confusion, and generalized weakness, possible seizure. She was found out to have some underlying pneumonia as well, and severe sepsis for which she is getting medical management in terms of antibiotics per ID. At this time, her altered mental status is more likely related to toxic metabolic encephalopathy from metabolic derangements and cerebral hypoperfusion to the brain since she was admitted with low blood pressures, as well as underlying pneumonia brewing affecting her mental status. Currently, her ment al status is back to baseline. At this time, continue: 1. Medical management for underlying pneumonia. 2. Monitor electrolytes and correct accordingly. 3. Continue with her Eliquis 5 mg p.o. b.i.d. for paroxysmal atrial fibrillation and for stroke prev ention. 4. She is on Cymbalta 20 mg p.o. daily for depression and for neuropathic pain. 5. Needs to get some physical therapy evaluation out of bed, and possibly subacute rehab if indicate d. At this time, continue with current present medical management. No focal neurological workup needed at this time. Will sign off. Tobias Hooks MD cc: [id number] TT: 09/17/2016 15:44:53 Confirmation # [id number] Dictation # [id number] jn
[2016-09-17] MEDS: Budesonide 0.5 mg/2 ml Inhal Susp UD IH SCH (20:39)
[2016-09-18 05:04] LABS: ADD MANUAL DIFF? NO
[2016-09-18 05:20] LABS: BASO # 0.01 K/mm3 (0.0-2.0); BASO % 0.1 % (0.0-3.0); GRAN % 88.3 % (50.0-68.0); HEMATOCRIT 30.2 % (36.0-48.0); LYMPH # 0.8 (1.2-3.4); LYMPH % 8.4 % (22.0-35.0); MEAN CELL VOLUME 92.4 fL (80.0-105.0); MEAN CORPUSCULAR HEMOGLOBIN 29.7 pg (25.0-35.0); MEAN CORPUSCULAR HGB CONC 32.1 g/dl (31.0-37.0); MEAN PLATELET VOLUME 10.4 fl (7.0-11.0); MONO # 0.3 (0.1-0.6); MONO % 3.2 % (1.0-6.0); PLATELET COUNT 248 10^3/uL (120.0-450.0); WHITE BLOOD COUNT 9.2 10^3/ul (4.5-11.0)
[2016-09-18 05:23] LABS: ALB/GLOB RATIO 0.9 (1.1-1.8); ALKALINE PHOSPHATASE 65 U/L (38-133); ALT/SGPT 18 U/L (7-56); AST/SGOT 50 U/L (15-39); BILIRUBIN,TOTAL 0.4 mg/dL (0.2-1.3); BLOOD UREA NITROGEN 27 mg/dL (7-21); CALCIUM 8.5 mg/dL (8.4-10.5); CARBON DIOXIDE 26 mmol/L (21-33); CHLORIDE 107 mmol/L (98-107); GFR AFRICAN-AMERICAN > 60; GLUCOSE,RANDOM 106 mg/dL (70-110); POTASSIUM 4.3 mmol/L (3.6-5.0); SODIUM 141 mmol/L (132-148); TOTAL PROTEIN 6.6 g/dL (5.8-8.3)
[2016-09-18] MEDS: Pantoprazole 40 mg EC Tab PO SCH (06:48)
[2016-09-18] MEDS: Levothyroxine 175 MCG TAB PO SCH (07:52)
[2016-09-18] MEDS: Budesonide 0.5 mg/2 ml Inhal Susp UD IH SCH ×2 (08:09→21:05)
[2016-09-18] MEDS: MethylPREDNISolone 40 mg Vial IVP SCH (10:46)
[2016-09-18] MEDS: Meropenem 1g/NS 100mL IVPB 100 ML IVPB SCH ×2 (10:46→23:33)
--- NOTE | 2016-09-18 10:57 | PN ---
DATE: 09/18/2016 The patient is in bed, seen earlier this morning in room 364, bed 2. No fevers and chills. PHYSICAL EXAMINATION: VITAL SIGNS: Temperature is 97, blood pressure is 130/80, respiratory rate of 18. HEENT: Unremarkable. NECK: Supple. LUNGS: Have decreased breath sounds. HEART: Normal S1, S2. ABDOMEN: Soft, nontender. LABORATORY EXAMINATION: Reveals a white count of 9.2, hemoglobin of 9.7, platelets of 248. Coagulat ion is noted. The chemistries reveals the BUN of 27, creatinine of 0.8 and procalcitonin is 42. Uri nalysis is noted. Microbiology reveals the blood cultures are no growth, urine cultures are no growt h. ASSESSMENT AND PLAN: A 51-year-old female with severe sepsis, acute change in sensorium, acute renal failure secondary to right-sided healthcare-associated pneumonia with possible gram-positive cocci, possible gram-negative abel with morbid obesity with body mass index of 40 and hypothyroidism, bipolar disorder, schizoaffective, history of gastric bypass. Day #4 of doxycycline and meropenem. Would c omplete 4-7 days of antibiotics. Will repeat a procalcitonin. On the , patient had a procalcito luis of 42. The patient's CAT scan of the chest done on the is noted. Alexander Bustamante MD cc: [id number] TT: 09/18/2016 10:56:28 Confirmation # [id number] Dictation # [id number] en
--- NOTE | 2016-09-18 11:45 | CP.PCM.PN ---
Subjective - Date & Time of Evaluation Date of Evaluation: 09/18/16 Time of Evaluation: 11:30 - Subjective Subjective: No acute events overnight. Feels much improved after starting nebulizers and Inhalers. Objective - Vital Signs/Intake and Output Vital Signs (last 24 hours): Temp Pulse Resp BP Pulse Ox 97.5 F L 70 19 132/89 95 09/18/16 07:36 09/18/16 07:36 09/18/16 07:36 09/18/16 07:36 09/18/16 07:36 Intake and Output: 09/18/16 09/18/16 06:59 18:59 Intake Total 0 Balance 0 - Medications Medications: Current Medications Acetaminophen (Tylenol 325mg Tab) 650 mg PO Q6H PRN PRN Reason: Pain, moderate (4-7) Last Admin: 09/17/16 20:11 Dose: 650 mg Albuterol Sulfate (Albuterol 0.083% Inhal Marcella (2.5 Mg/3 Ml) Ud) 1.25 mg IH Q2H PRN PRN Reason: Shortness of Breath Last Admin: 09/17/16 20:39 Dose: 1.25 mg Apixaban (Eliquis) 5 mg PO BID KEITH PRN Reason: Protocol Last Admin: 09/18/16 10:46 Dose: 5 mg Aripiprazole (Abilify) 20 mg PO DAILY KEITH PRN Reason: Protocol Last Admin: 09/18/16 10:45 Dose: 20 mg Budesonide (Pulmicort Respules) 0.5 mg IH [id number] [facility] Last Admin: 09/18/16 08:09 Dose: 0.5 mg Clonazepam (Klonopin) 0.5 mg PO DAILY PRN; Protocol PRN Reason: Anxiety Duloxetine HCl (Cymbalta) 20 mg PO DAILY [facility] Last Admin: 09/18/16 10:45 Dose: 20 mg Folic Acid (Folic Acid) 1 mg PO DAILY [facility] Last Admin: 09/18/16 10:46 Dose: 1 mg Guaifenesin/Dextromethorphan (Robitussin Dm) 10 ml PO Q4H PRN PRN Reason: Cough Doxycycline Hyclate 100 mg/ (Sodium Chloride) 100 mls @ 100 mls/hr IVPB Q12 KEITH PRN Reason: Protocol Stop: 09/21/16 22:01 Last Admin: 09/18/16 10:48 Dose: 100 mls/hr Meropenem 1g/NS 100mL IVPB (Meropenem 1g/Ns 100ml Ivpb) 100 mls @ 100 mls/hr IVPB Q12 [facility] PRN Reason: Protocol Stop: 09/21/16 22:01 Last Admin: 09/18/16 10:46 Dose: 100 mls/hr Levothyroxine Sodium (Synthroid) 175 mcg PO ACB [facility] Last Admin: 09/18/16 07:52 Dose: 175 mcg Methylprednisolone (Solu-Medrol) 20 mg IVP Q12 [facility] Last Admin: 09/18/16 10:46 Dose: 20 mg Pantoprazole Sodium (Protonix Ec Tab) 40 mg PO 0630 [facility] Last Admin: 09/18/16 06:48 Dose: 40 mg Pregabalin (Lyrica) 25 mg PO BID [facility] Last Admin: 09/18/16 10:45 Dose: 25 mg Trazodone HCl (Desyrel) 200 mg PO HS [facility] Last Admin: 09/17/16 21:30 Dose: 200 mg Zolpidem Tartrate (Ambien) 10 mg PO HS PRN; Protocol PRN Reason: Insomnia Last Admin: 09/17/16 21:31 Dose: 10 mg - Labs Labs: 09/18/16 05:00 09/18/16 05:00 PT 12.5 Seconds (9.9-11.8) H 09/14/16 13:30 INR 1.16 (0.93-1.08) H 09/14/16 13:30 APTT 41.8 Seconds (23.7-30.8) H 09/14/16 13:30 - Head Exam Head Exam: ATRAUMATIC, NORMAL INSPECTION, NORMOCEPHALIC - Eye Exam Eye Exam: EOMI, Normal appearance Pupil Exam: PERRL - ENT Exam ENT Exam: Mucous Membranes Moist - Neck Exam Neck Exam: Full ROM, Normal Inspection - Respiratory Exam Respiratory Exam: Clear to Ausculation Bilateral, NORMAL BREATHING PATTERN - Cardiovascular Exam Cardiovascular Exam: REGULAR RHYTHM - GI/Abdominal Exam GI & Abdominal Exam: Normal Bowel Sounds - Rectal Exam Rectal Exam: Deferred - Exam Exam: absent: Circumcision, NORMAL INSPECTION, Scrotal Swelling, Testicular Tenderness, Uretheral Discharge, Testicular Vertical Lie, Bladder Distension - Extremities Exam Extremities Exam: Full ROM, Normal Inspection - Back Exam Back Exam: NORMAL INSPECTION - Neurological Exam Neurological Exam: Alert, Awake, CN II-XII Intact, Normal Gait, Oriented x3 Assessment and Plan - Assessment and Plan (Free Text) Plan: 51 y/o F w/ Moderate persistent Asthma admitted for URI and possible PNA On Abx course x 8 days, Started on Inhalers ICS and -Agonists and Solumedrol BID can taper for 2 weeks course. Subjectively she has improved overnight, walk distance improved. No cough or fevers. Lung are clear.
--- NOTE | 2016-09-18 20:01 | PN ---
DATE: 09/18/2016 This is the patient's hospital visit on the medical floor. For Dr. Malave. SUBJECTIVE: The patient is a 51-year-old female, seen lying awake in bed, at the bedside, in no acute distress this visit. She feels better, being treated pneumonia with a significantly elevat ed procalcitonin level. With this, the patient is upset because a nurse's aide advised her she was n ot able to use her gown from home, because she does not feel comfortable using her hospital gown. Th is was resolved without problem. With this, the patient is otherwise without complaint. OBJECTIVE: PHYSICAL EXAMINATION: VITAL SIGNS: Temperature 97.5, pulse 70, respirations 19, blood pressure 132/89, pulse ox 95%. HEENT: Unremarkable. NECK: Supple. HEART: Regular rate. LUNGS: Minimal decreased breath sounds, decreased effort. ABDOMEN: Obese, soft, and nontender. EXTREMITIES: No edema. SKIN: Warm, dry and clear. NEUROLOGIC: Awake, alert. LABORATORY DATA: The patient's labs were done. White blood cell count of 9.2; hemoglobin of 9.7; he matocrit 30.2; platelet count of 248,000 with a chem metabolic panel within normal limits with an AST of 50, BUN of 27, normal creatinine of 0.8. Serology for hepatitis A, B and C were all negative. L egionella pneumophila was negative. Influenza was negative. Rheumatoid factor, MOY screening is pen ding. ASSESSMENT: For this patient is that of resolving pneumonia, systemic inflammatory response syndrome , severe sepsis, history of TIA, bipolar disorder, acute renal failure resolving, hypokalemia, rhabdo myolysis, schizoaffective disorder, hypothyroidism, sleep apnea, obesity. PLAN: For this patient is to continue present medical regimen. The patient will be monitored clinic ally and with labs with discharge planning for home needs once she is ready to be discharged as per Molly Bustamante's recommendations for antibiotics. Ronal Kahn MD cc: [id number] TT: 09/18/2016 20:01:07 Confirmation # [id number] Dictation # [id number] mn
[2016-09-18] MEDS ORDERED: Sodium Chloride 0.9% 1,000 ML IV SCH (21:30)
--- NOTE | 2016-09-18 23:07 | PN ---
DATE: 09/16/2016 SUBJECTIVE: The patient was seen on telemetry; however, later in the day, she was transferred to a [facility] medical floor. She reports decreasing shortness of breath, but generally, appeared to be more alert than she had been in days past. There was no chest pain. She was still quite edematous. She denied any abdominal pain, nausea or vomiting, but still is somewhat slow to respond to simple quest ions. OBJECTIVE: VITAL SIGNS: Blood pressure is 146/83, heart rate 60, oral temperature 97.6, respiratory rate is 18, oxygen saturation 96% on room air. I's and O's were not strictly documented. The remainder of the exam was as follows. HEENT: The patient was normocephalic, atraumatic. There was no sinus tenderness. She generally maurilio eared to be pale, but not very much so. NECK: There was no jugular venous distention I could appreciate on exam. CHEST: Lungs cardoza were grossly clear to auscultation. There were no rales, rhonchi or wheezing, b ut the patient was not cooperative with very deep breaths. CARDIAC: Had a regular rate and rhythm without any rubs or gallops. There were no heaves. ABDOMEN: Soft, distended, but nontender, without any rebounding, guarding or rigidity. There was no hepatosplenomegaly. EXTREMITIES: Had 1+ dependent edema. NEUROLOGIC: She was slow to respond. SKIN: Appeared to be intact. GENITOURINARY: Exam did not have any suprapubic tenderness, nor did it have any CVA tenderness. VASCULAR: Had no bruits. LABORATORY STUDIES: White count is 9.2, H and H is 9.7/30.2 with a platelet count of 248,000. MCV i s 92. There are 88% neutrophils, 8% lymphocytes, 3% monocytes. Sodium is 141, potassium 4.3, chlori de 107, bicarbonate 26, BUN/creatinine is with a glucose of 106. Complement levels were within normal limits. MOY is negative. ANCA are still pending, as is rheumatoid factor. Hepatitis serolo gies are negative. Blood cultures as well as urine cultures are negative, and there is no new imagin g to report. IMPRESSION AND PLAN: The patient is a 51-year-old female with a history of obesity and gastric bypas s, nephrolithiasis, chronic hypotension, paroxysmal atrial fibrillation with history of transient isc hemic attack, schizoaffective disorder, bipolar disorder, obstructive sleep apnea, rheumatoid arthrit is, history of pituitary intervention 20 years ago, originally admitted with an alteration in her men stephani status, noted to be hypotensive with acute kidney injury. She was also noted to have rhabdomyoly sis, as well as community-acquired pneumonia. 1. The patient's acute kidney injury has resolved; thus, her blood pressure has increased and as her rhabdomyolysis is being treated. 2. Most recent CPK was noted to be 2,688 and was actually increasing on 09/15. We will repeat this value with her next set of labs, so that we can continue to see that it is decreasing. 3. For now as treatment of her rhabdomyolysis, she does require intravenous fluids, but these appear to have been discontinued. Given the fact that her CPK was increasing, we will start normal saline at 75 mL per hour for now. We need to be cautious with respect to her pneumonia; we will not precipi may congestive heart failure. 4. Infectious disease followup is appreciated and the patient is on day number 4 of doxycycline, as well as meropenem at a plan 4-7 days. 5. If the patient becomes short of breath or if edema worsens, we can also start furosemide on a p.r .n. basis to cause a "forced diuresis" and ensure that she is in an even fluid balance. Review of systems, past medical history, social history and family history have been reviewed and the re were no new changes. Stewart Key MD cc: [id number] TT: 09/18/2016 23:07:34 Confirmation # [id number] Dictation # [id number] mn
[2016-09-19] MEDS: Pantoprazole 40 mg EC Tab PO SCH (05:55)
[2016-09-19 07:06] LABS: HEMATOCRIT 29.8 % (36.0-48.0); MEAN CELL VOLUME 91.4 fL (80.0-105.0); MEAN CORPUSCULAR HEMOGLOBIN 30.1 pg (25.0-35.0); MEAN CORPUSCULAR HGB CONC 32.9 g/dl (31.0-37.0); PLATELET COUNT 279 10^3/uL (120.0-450.0); WHITE BLOOD COUNT 9.6 10^3/ul (4.5-11.0)
[2016-09-19 07:07] LABS: ADD MANUAL DIFF? YES
[2016-09-19 07:14] LABS: ALB/GLOB RATIO 0.9 (1.1-1.8); ALKALINE PHOSPHATASE 65 U/L (38-133); ALT/SGPT 16 U/L (7-56); AST/SGOT 42 U/L (15-39); BILIRUBIN,TOTAL 0.5 mg/dL (0.2-1.3); BLOOD UREA NITROGEN 25 mg/dL (7-21); CALCIUM 8.1 mg/dL (8.4-10.5); CARBON DIOXIDE 26 mmol/L (21-33); CHLORIDE 108 mmol/L (98-107); GFR AFRICAN-AMERICAN > 60; GLUCOSE,RANDOM 72 mg/dL (70-110); POTASSIUM 3.7 mmol/L (3.6-5.0); SODIUM 143 mmol/L (132-148); TOTAL PROTEIN 6.4 g/dL (5.8-8.3)
[2016-09-19] MEDS: Budesonide 0.5 mg/2 ml Inhal Susp UD IH SCH ×2 (08:07→19:59)
[2016-09-19 09:05] LABS: NEUTROPHIL 64 % (50.0-70.0)
[2016-09-19 09:06] LABS: ATYPICAL LYMPHOCYTE 3 % (0.0-0.0); MYELOCYTE 1 %; PLATELET ESTIMATE NORMAL (NORMAL)
[2016-09-19 09:07] LABS: ANISOCYTOSIS 1+; GIANT PLATELETS PRESENT; HYPOCHROMIA 1+; LARGE PLATELETS PRESENT; OVALOCYTES SLIGHT; TEAR DROP CELLS SLIGHT
[2016-09-19] MEDS: Levothyroxine 175 MCG TAB PO SCH (09:16)
[2016-09-19] MEDS: Meropenem 1g/NS 100mL IVPB 100 ML IVPB SCH ×2 (09:16→21:01)
[2016-09-19] MEDS: MethylPREDNISolone 40 mg Vial IVP SCH (09:16)
--- NOTE | 2016-09-19 11:30 | RAD ---
HISTORY: Pneumonia COMPARISON: 09/14/2016 FINDINGS: LUNGS: Resolution of ground-glass pulmonary opacities. No new opacity. PLEURA: No significant pleural effusion identified, no pneumothorax apparent. CARDIOVASCULAR: Normal heart size. Right central venous infusion port noted. OSSEOUS STRUCTURES: No significant abnormalities. VISUALIZED UPPER ABDOMEN: Normal. OTHER FINDINGS: None. IMPRESSION: Unremarkable examination. Resolved pulmonary opacities.
[2016-09-19] MEDS ORDERED: Potassium Chloride 40 mEq/30 ml LIQ UD PO ONE (12:43)
--- NOTE | 2016-09-19 13:53 | PN ---
DATE: 09/19/2016 The patient is seen on a general medical floor. She is lying in bed at a 30-degree angle without any dyspnea, accompanied by her . There is no chest pain or shortness of breath despite the fact that she is edematous. Overall, she is in good spirits and has no somatic complaints. PHYSICAL EXAMINATION: VITAL SIGNS: Blood pressure is 139/97, heart rate 60, oral temperature is 97.5, respiratory rate is 18, oxygen saturation 95% on room air. HEENT: The patient was normocephalic and atraumatic. There was no sinus tenderness. Neck was suppl e with full range of motion. Trachea midline and freely movable. Thyroid nontender nor enlarged. S he did appear to be somewhat pale in the conjunctivae. There was no jugular venous distention. CHEST: Lung cardoza had some faint rales at the bases, but there was no wheezing or rhonchi. Diaphra gmatic excursion and airflow into both lung cardoza was bilaterally symmetrical. CARDIAC: Had a regular rate and rhythm without any rubs or gallops. There were no heaves. ABDOMEN: Soft, nondistended, nontender. There was no rebounding, guarding or rigidity. EXTREMITIES: Had 1+ edema. NEUROLOGIC: She was nonfocal. VASCULAR: Had no bruits. SKIN: Intact. LABORATORY STUDIES: White count is 9.6, H and H is 9.8/29.8 with a platelet count of 279,000. There are 64% neutrophils, 27% lymphocytes, 3% atypical lymphocytes, 5% monocytes. Sodium is 143, potassi um 3.7, chloride is 108, bicarbonate 26, BUN/creatinine is 25/0.8 with a glucose of 72. Calcium is l ow at 8.1, but after correcting for the albumin of 3.0, corrects to 8.9. CPK has decreased to 404. Chest x-ray from today reveals resolution of her infiltrates and there is no new microbiology data to report. IMPRESSION AND PLAN: The patient is a 51-year-old obese female (body mass index 40 kg/meters squared ) with prior history of gastric bypass, also with chronic hypotension, paroxysmal atrial fibrillation with history of transient ischemic attack, nephrolithiasis, schizoaffective disorder, bipolar disord er, obstructive sleep apnea, rheumatoid arthritis, history of pituitary intervention 20 years ago, ad mitted with an alteration in her mental status and noted to have severe sepsis secondary to community -acquired pneumonia as well as rhabdomyolysis with acute kidney injury. 1. The patient's rhabdomyolysis has resolved and on account of that as well as the fact that she has increased edema, her intravenous fluids were discontinued yesterday. 2. The patient does remain quite edematous and this may interfere with her ability to ambulate and p articipate with physical therapy. While she is here, I will start her on furosemide 20 mg intravenou sly twice daily only for the purposes of helping to decrease her edema. Her potassium is already not ed to be low and thus, I will give her 40 mEq of potassium chloride today as well in anticipation of it decreasing even further in response to the furosemide. 3. For her atrial fibrillation, the patient is now on Eliquis 5 mg orally twice daily at the appropr iate dose given the fact that her acute kidney injury has resolved. 4. The patient continues to be on intravenous steroids, which are being decreased by pulmonary for h er pneumonia with severe sepsis. She is currently on Solu-Medrol 20 mg intravenously daily and along with this, pantoprazole for gastrointestinal prophylaxis. Additionally, for pneumonia, she remains on meropenem as well as doxycycline. 5. The patient was also encouraged to ambulate as best she can as well. 6. Although the calcium is listed as low, after correcting for the albumin, it is not and therefore, she does not require any calcium supplementation. The above was discussed with the patient as well as her present at bedside. Review of systems, past medical history, social history and family history were all reviewed and ther e were no new changes. Stewart Key MD cc: [id number] TT: 09/19/2016 13:52:27 Confirmation # [id number] Dictation # [id number]
--- NOTE | 2016-09-19 14:28 | CP.PCM.PN ---
Subjective - Date & Time of Evaluation Date of Evaluation: 09/19/16 Time of Evaluation: 10:00 - Subjective Subjective: Comfortable on a chair, not in distress, no fevers overnight, breathing much better, no cough currently, no nausea, appetite is good. Objective - Vital Signs/Intake and Output Vital Signs (last 24 hours): Temp Pulse Resp BP Pulse Ox 97.6 F 60 18 146/83 96 09/18/16 17:02 09/18/16 17:02 09/18/16 17:02 09/18/16 17:02 09/18/16 17:02 Intake and Output: 09/19/16 09/19/16 06:59 18:59 Intake Total 1540 120 Balance 1540 120 - Medications Medications: Current Medications Acetaminophen (Tylenol 325mg Tab) 650 mg PO Q6H PRN PRN Reason: Pain, moderate (4-7) Last Admin: 09/17/16 20:11 Dose: 650 mg Albuterol Sulfate (Albuterol 0.083% Inhal Marcella (2.5 Mg/3 Ml) Ud) 1.25 mg IH Q2H PRN PRN Reason: Shortness of Breath Last Admin: 09/17/16 20:39 Dose: 1.25 mg Apixaban (Eliquis) 5 mg PO BID KEITH PRN Reason: Protocol Last Admin: 09/18/16 17:07 Dose: 5 mg Aripiprazole (Abilify) 20 mg PO DAILY KEITH PRN Reason: Protocol Last Admin: 09/18/16 10:45 Dose: 20 mg Budesonide (Pulmicort Respules) 0.5 mg IH [id number] [facility] Last Admin: 09/19/16 08:07 Dose: 0.5 mg Clonazepam (Klonopin) 0.5 mg PO DAILY PRN; Protocol PRN Reason: Anxiety Duloxetine HCl (Cymbalta) 20 mg PO DAILY [facility] Last Admin: 09/18/16 10:45 Dose: 20 mg Folic Acid (Folic Acid) 1 mg PO DAILY [facility] Last Admin: 09/18/16 10:46 Dose: 1 mg Guaifenesin/Dextromethorphan (Robitussin Dm) 10 ml PO Q4H PRN PRN Reason: Cough Doxycycline Hyclate 100 mg/ (Sodium Chloride) 100 mls @ 100 mls/hr IVPB Q12 KEITH PRN Reason: Protocol Stop: 09/21/16 22:01 Last Admin: 09/18/16 22:13 Dose: 100 mls/hr Meropenem 1g/NS 100mL IVPB (Meropenem 1g/Ns 100ml Ivpb) 100 mls @ 100 mls/hr IVPB Q12 KEITH PRN Reason: Protocol Stop: 09/21/16 22:01 Last Admin: 09/18/16 23:33 Dose: 100 mls/hr Sodium Chloride (Sodium Chloride 0.9%) 1,000 mls @ 100 mls/hr IV .Q10H KEITH Levothyroxine Sodium (Synthroid) 175 mcg PO ACB KEITH Last Admin: 09/18/16 07:52 Dose: 175 mcg Methylprednisolone (Solu-Medrol) 20 mg IVP DAILY KEITH Pantoprazole Sodium (Protonix Ec Tab) 40 mg PO 0630 [facility] Last Admin: 09/19/16 05:55 Dose: 40 mg Pregabalin (Lyrica) 25 mg PO BID KEITH Last Admin: 09/18/16 17:07 Dose: 25 mg Trazodone HCl (Desyrel) 200 mg PO HS KEITH Last Admin: 09/18/16 21:22 Dose: 200 mg Zolpidem Tartrate (Ambien) 10 mg PO HS PRN; Protocol PRN Reason: Insomnia Last Admin: 09/18/16 21:22 Dose: 10 mg - Labs Labs: 09/19/16 05:45 09/19/16 05:45 PT 12.5 Seconds (9.9-11.8) H 09/14/16 13:30 INR 1.16 (0.93-1.08) H 09/14/16 13:30 APTT 41.8 Seconds (23.7-30.8) H 09/14/16 13:30 - Constitutional Appears: Non-toxic, No Acute Distress - Head Exam Head Exam: NORMAL INSPECTION - ENT Exam ENT Exam: Mucous Membranes Moist - Neck Exam Neck Exam: absent: Lymphadenopathy, Meningismus - Respiratory Exam Respiratory Exam: Decreased Breath Sounds - Cardiovascular Exam Cardiovascular Exam: +S1, +S2 - GI/Abdominal Exam GI & Abdominal Exam: Soft. absent: Tenderness Assessment and Plan - Assessment and Plan (Free Text) Plan: Assessment severe sepsis with acute change in sensorium and acute renal failure secondary to right sided healthcare-associated pneumonia with possible gram positive cocci and/or gram negative bacilli, clinically improving rheumatoid arthritis history of transient ischemic attack obstructive sleep apnea Morbid obesity with BMI 40 hypothyroidism bipolar disorder shcizoaffective disorder, S/P gastric bypass surgery Plan continue Doxycycline and Merrem (day 5); blood cx are negative; reviewed CXR and CT scan which showed the right-lower lobe consolidation; PCT is elevated but now has normalized; discussed with Dr. Malave - will switch to PO antibiotics tomorrow Will continue to follow clinically
--- NOTE | 2016-09-19 16:03 | PN ---
DATE: 09/19/2016 The patient seen and examined at bedside. She is comfortable. She talks full sentences. She is not in respiratory or otherwise distress. She is sitting in the chair. No events overnight and no subjective complaint except for mild gaseous pain in right mesogastrium which is fluctuating and now getting substantially better. She reports passing gas and having bowel movement. PHYSICAL EXAMINATION: VITAL SIGNS: Temperature 97.5, blood pressure 137/97, respiratory rate 20, oxygen saturation 95% on 2 liters nasal cannula, heart rate 60. HEAD AND NECK: Atraumatic. LUNGS: Few crackles bilaterally. HEART: Regular rate and rhythm. S1, S2 normal. ABDOMEN: Soft, nontender, nondistended. Bowel sounds present. MUSCULOSKELETAL: Trace bilateral pedal and ankle edema. NEUROLOGIC: The patient moves all extremities spontaneously. SKIN: Moist. PSYCHIATRIC: The patient is alert and oriented x 3. LABORATORIES: WBC 9.6, hemoglobin 9.8, platelet count 279. Sodium 143, potassium 3.7, chloride 108, carbon dioxide 26, BUN 25, creatinine 0.8, glucose 72. CPK 404. Albumin 3. Procalcitonin 0.83, down from 42. Hepatitis profile negative. Influenza negative. Urine for legionella antigen is negative. Rheumatoid factor normal. MOY screen is normal. C3, C4 are normal (C4 slightly elevated). MEDICATIONS: Abilify, Ambien p.r.n., Cymbalta, trazodone, doxycycline, Eliquis , folic acid, Klonopin p.r.n., Lyrica, meropenem, Protonix, budesonide, Solu- Medrol 20 mg IV daily, normal saline 100 mL per hour (will stop). The patient has crackles and some trace bilateral pedal and ankle edema, rhabdomyolysis almost resolved, acute kidney injury resolved. The patient is normotensive and mildly hypervolemic on exam. Synthroid, Tylenol p.r.n. ASSESSMENT AND PLAN: This is a 51-year-old lady with diastolic congestive heart failure, who presented with some hypovolemia, severe sepsis due to component of community-acquired pneumonia. She was started on broad-spectrum antibiotics, was fluid resuscitated. Her acute kidney injury and rhabdomyolysis since then improved. Her oral hydration intake appears to be adequate. The patient is slightly hypervolemic, thus IV fluids were stopped and oral hydration encouraged. Her procalcitonin substantially decreased. ID service is following her and will give their recommendations as to duration of the rest of the course. will order 6 min walk test to see if would require supplemental 02 at home. Would recommend to obtain CXR in 1 month after discharge to ascertain resolution of radioraphic abnormalities and follow up with PMD or pulm within 10 days of discharge. Rudy Seymour MD cc: [id number] TT: 09/19/2016 10:35:50 Confirmation # [id number] Dictation # [id number] en 09/19/2016 15:02:30 CAROL
--- NOTE | 2016-09-20 00:13 | PN ---
DATE: 09/19/2016 The patient is in room 364, bed 2. SUBJECTIVE: The patient is examined at the bedside. She is comfortable. She is talking in full sen tences. Her is at the bedside. She is not in any respiratory distress. No events were note d over the nighttime. No subjective complaints except for some mild gaseous pain in the right mesoga strium, which is substantially getting better. The patient is passing gas and is having bowel moveme nts. PHYSICAL EXAMINATION: GENERAL: The patient is awake, alert, and oriented. VITAL SIGNS: T-max is 98.4, blood pressure is 137/97, respirations 20, O2 sat is 95% on 2 liters of nasal cannula, heart rate is 60. HEENT: Head is normocephalic, atraumatic. Conjunctivae pale. Sclerae are anicteric. Pupils are eq ually reactive to light and accommodation. LUNGS: Reveals few crackles bilaterally. HEART: Reveals S1 and S2 to be normal, regular rate and rhythm. ABDOMEN: Soft, nontender and nondistended. No rebound, rigidity or guarding is noted. Bowel sounds are present. MUSCULOSKELETAL: Trace bilateral pedal and ankle edema is noted. NEUROLOGIC: Higher functions are normal. No focal deficits are noted. SKIN: Moist. Normal skin turgor is noted. PSYCHIATRIC: The patient is awake, alert, and oriented and is not as depressed as she was. LABORATORY DATA: From today reveals a white count of 9.6, hemoglobin 9.8, platelet count 279. Sodiu m is 140, is 3.7, chloride 108, CO2 of 26, BUN of 25, creatinine 0.8, glucose 72. CPK 404, alb umin 3. Procalcitonin 0.83 down from 42. Hepatitis profile is negative. Influenza is negative. Ur ine for legionella antigen is negative. Rheumatoid factor, MOY screen is normal. C3, C4 are normal with a slightly elevated C4. MEDICATIONS: Include Abilify, Ambien, Cymbalta, trazodone, doxycycline IV, Eliquis, folic acid, Klon opin p.r.n., Lyrica, meropenem, Protonix, budesonide, Solu-Medrol 20 mg IV daily, normal saline which has been stopped at this time. The patient has crackles and bilateral pedal and ankle edema. Rhabd omyolysis is almost resolved. Acute kidney injury has improved. The patient is normotensive, mildly hypervolemic. ASSESSMENT NOTES AND PLAN: A 51-year-old female who was admitted to the hospital with what appeared to be congestive heart failure, pneumonia, severe sepsis, is improved dramatically on broad spectrum antibiotics, currently on meropenem and doxycycline. Kidney injury and rhabdomyolysis also have impr jerry. Oral hydration appears to be adequate. The patient is getting IV Lasix right now and IVs have been discontinued. Procalcitonin has substantially decreased. I spoke with to ID service; ____ _ is going to reassess her tomorrow, but will continue the IV meropenem and the doxycycline for now. Initially, the patient was supposed to get 2 additional days including extruding today for a total o f 3 days of the IV antibiotics. Alternatives would be oral Augmentin and doxycycline and the patient I am not sure would be able to handle that orally, because she has short gut syndrome and she would end up having diarrhea. The patient has history of having had gastric bypass several years ago. She also has a history of atrial fibrillation for which she is on Eliquis. History of TIA in the past a s well. We will follow the patient very carefully, and depending on ID's recommendation in the a.m., we will take appropriate action. Follow up chest x-ray will be due in a few weeks as an outpatient. Routine post exam instructions have been given to the patient. I spoke to the patient's in great detail. Labs for a.m. have been requested. Betzy Malave MD cc: [id number] TT: 09/20/2016 00:12:15 Confirmation # [id number] Dictation # [id number] giuliano
[2016-09-20] MEDS: Pantoprazole 40 mg EC Tab PO SCH (06:03)
[2016-09-20] MEDS: Budesonide 0.5 mg/2 ml Inhal Susp UD IH SCH ×2 (07:31→21:08)
--- NOTE | 2016-09-20 08:20 | PN ---
DATE: 09/19/2016 The patient in room 364, bed #2. REASON FOR CONSULTATION AND FOLLOWUP: Altered mental status, paroxysmal atrial fibrillation, history of TIA, pneumonia. HISTORY OF PRESENT ILLNESS: A 51-year-old female with past medical history significant for anemia, h istory of paroxysmal atrial fibrillation, admitted for being unresponsive; history of bipolar disorde r, schizoaffective disorder. The patient used to be on Plavix, but after 07/10 her inspector aligning, had put her on Eliquis and Plavix was discontinued. The patient sitting comfortably in chair without ch est pain, shortness of breath, palpitation. PHYSICAL EXAMINATION: VITAL SIGNS: Blood pressure 135/90, respirations 20, pulse 60, temperature 97.5. HEAD: Normocephalic. EYES: Pupils normal. Conjunctivae slightly pale. NECK: JVP low. Carotids equal. THORAX: AP diameter normal. LUNGS: No significant rales. CARDIOVASCULAR: S1, S2. ABDOMEN: Soft, no tenderness, no organomegaly. Bowel sounds normal. EXTREMITIES: No clubbing, no cyanosis. LABORATORIES: WBC 9.6, hemoglobin 9.8, hematocrit 29.8, platelet 279. Sodium 143, potassium 3.7, BU N 25, creatinine 0.8, calcium 8.1. AST 42, ALT 16, CPK 404, total protein 6.4, albumin 3.0. DIAGNOSES: History of chronic anemia, episode of unresponsiveness, bipolar disorder. CAT scan of th e chest suggestive of multilobar pneumonia. Echo showed preserved left ventricular function, right v entricular systolic pressure 38 mmHg, obesity, rhabdomyolysis, paroxysmal atrial fibrillation. The patient on doxycycline 100 mg IV q. 8 hours, Eliquis 5 mg b.i.d., folic acid 1 mg daily, Lyrica 2 5 b.i.d., meropenem 1 g IV q. 12 hours, Protonix 40 daily, methylprednisone 20 mg IV daily, Synthroid 175 mcg daily. Will continue present therapy. Will follow with you. Gisselle Martínez MD cc: [id number] TT: 09/20/2016 08:19:45 Confirmation # [id number] Dictation # [id number] jn
[2016-09-20] MEDS: Levothyroxine 175 MCG TAB PO SCH (08:30)
[2016-09-20] MEDS: MethylPREDNISolone 40 mg Vial IVP SCH (09:54)
[2016-09-20] MEDS: Meropenem 1g/NS 100mL IVPB 100 ML IVPB SCH ×2 (09:55→21:14)
--- NOTE | 2016-09-20 12:07 | PN ---
DATE: 09/20/2016 REASON FOR CONSULTATION AND FOLLOWUP: Altered mental status, paroxysmal atrial fibrillation, history of TIA, pneumonia. BRIEF CLINICAL HISTORY: A 51-year-old female with past medical history significant for anemia, histo ry of paroxysmal atrial fibrillation, admitted being unresponsive, history of bipolar disorder, schiz oaffective disorder. The patient used to be on Plavix, but after 07/10, the patient's Plavix was orozco ged to Eliquis because of paroxysmal atrial fibrillation. Plavix was discontinued. The patient is sitting comfortably, denies any chest pain, shortness of breath, any palpitation. PHYSICAL EXAMINATION: VITAL SIGNS: Temperature afebrile, heart rate 65, blood pressure 122/80. HEENT: PERRLA. Extraocular muscles intact. NECK: Supple. No carotid bruits. No thyromegaly. CHEST: Clear to auscultation. HEART: S1, S2 regular. ABDOMEN: Soft. EXTREMITIES: Clubbing and cyanosis negative. LABORATORY DATA: Blood workup as follows: WBC 9.6, hemoglobin 9.8, hematocrit 29.8, platelet count 279. Chemistry shows sodium 140, potassium 3.7, chloride 100, carbon dioxide 26, anion gap of 13, BU N 28, creatinine 0.8. IMPRESSION: Status post rhabdomyolysis, status post history of atrial fibrillation, history of anemi a, unresponsive, bipolar disorder, multilobar pneumonia. Echo shows preserved left ventricular funct ion, right ventricular systolic pressure of 38, paroxysmal atrial fibrillation. RECOMMENDATION: Continue Eliquis b.i.d. IV hydration stopped because CPK improved, marginally eleva liset, but trending down. Continue apixaban. Continue antibiotic. We will follow with you. CVS stat us is stable. Thank you, Dr. Malave, for providing us the opportunity in taking care of the patient. Continue Lev oxyl for hypothyroidism. Gisselle Parker MD cc: [id number] TT: 09/20/2016 12:06:40 Confirmation # [id number] Dictation # [id number]
--- NOTE | 2016-09-20 13:59 | CP.PCM.PN ---
Subjective - Date & Time of Evaluation Date of Evaluation: 09/20/16 Time of Evaluation: 13:30 - Subjective Subjective: Subjectively patient is feeling much better No further oxygen need. No wheezing Out of bed and walking in the room Objective - Vital Signs/Intake and Output Vital Signs (last 24 hours): Temp Pulse Resp BP Pulse Ox 97.6 F 65 18 122/88 96 09/20/16 06:00 09/20/16 06:00 09/20/16 06:00 09/20/16 09:53 09/20/16 06:00 Intake and Output: 09/20/16 09/20/16 06:59 18:59 Intake Total 720 360 Output Total 0 Balance 720 360 - Medications Medications: Current Medications Acetaminophen (Tylenol 325mg Tab) 650 mg PO Q6H PRN PRN Reason: Pain, moderate (4-7) Last Admin: 09/17/16 20:11 Dose: 650 mg Albuterol Sulfate (Albuterol 0.083% Inhal Marcella (2.5 Mg/3 Ml) Ud) 1.25 mg IH Q2H PRN PRN Reason: Shortness of Breath Last Admin: 09/17/16 20:39 Dose: 1.25 mg Apixaban (Eliquis) 5 mg PO BID KEITH PRN Reason: Protocol Last Admin: 09/20/16 09:52 Dose: 5 mg Aripiprazole (Abilify) 20 mg PO DAILY KEITH PRN Reason: Protocol Last Admin: 09/20/16 09:52 Dose: 20 mg Budesonide (Pulmicort Respules) 0.5 mg IH [id number] [facility] Last Admin: 09/20/16 07:31 Dose: 0.5 mg Clonazepam (Klonopin) 0.5 mg PO DAILY PRN; Protocol PRN Reason: Anxiety Duloxetine HCl (Cymbalta) 20 mg PO DAILY [facility] Last Admin: 09/20/16 09:53 Dose: 20 mg Folic Acid (Folic Acid) 1 mg PO DAILY [facility] Last Admin: 09/20/16 09:53 Dose: 1 mg Furosemide (Lasix) 20 mg IVP Q12 KEITH Last Admin: 09/20/16 09:53 Dose: 20 mg Guaifenesin/Dextromethorphan (Robitussin Dm) 10 ml PO Q4H PRN PRN Reason: Cough Doxycycline Hyclate 100 mg/ (Sodium Chloride) 100 mls @ 100 mls/hr IVPB Q12 KEITH PRN Reason: Protocol Stop: 09/21/16 22:01 Last Admin: 09/19/16 21:06 Dose: 100 mls/hr Meropenem 1g/NS 100mL IVPB (Meropenem 1g/Ns 100ml Ivpb) 100 mls @ 100 mls/hr IVPB Q12 KEITH PRN Reason: Protocol Stop: 09/21/16 22:01 Last Admin: 09/20/16 09:55 Dose: 100 mls/hr Levothyroxine Sodium (Synthroid) 175 mcg PO ACB KEITH Last Admin: 09/20/16 08:30 Dose: 175 mcg Methylprednisolone (Solu-Medrol) 20 mg IVP DAILY [facility] Last Admin: 09/20/16 09:54 Dose: 20 mg Pantoprazole Sodium (Protonix Ec Tab) 40 mg PO 0630 [facility] Last Admin: 09/20/16 06:03 Dose: 40 mg Pregabalin (Lyrica) 25 mg PO BID KEITH Last Admin: 09/20/16 09:52 Dose: 25 mg Trazodone HCl (Desyrel) 200 mg PO HS KEITH Last Admin: 09/19/16 21:02 Dose: 200 mg Zolpidem Tartrate (Ambien) 10 mg PO HS PRN; Protocol PRN Reason: Insomnia Last Admin: 09/19/16 21:02 Dose: 10 mg - Labs Labs: 09/19/16 05:45 09/19/16 05:45 PT 12.5 Seconds (9.9-11.8) H 09/14/16 13:30 INR 1.16 (0.93-1.08) H 09/14/16 13:30 APTT 41.8 Seconds (23.7-30.8) H 09/14/16 13:30 - Constitutional Appears: Non-toxic - Head Exam Head Exam: NORMAL INSPECTION - Eye Exam Eye Exam: EOMI, Normal appearance, PERRL Pupil Exam: NORMAL ACCOMODATION - ENT Exam ENT Exam: Mucous Membranes Moist - Neck Exam Neck Exam: Normal Inspection - Respiratory Exam Respiratory Exam: Clear to Ausculation Bilateral, NORMAL BREATHING PATTERN - Cardiovascular Exam Cardiovascular Exam: REGULAR RHYTHM - GI/Abdominal Exam GI & Abdominal Exam: Soft - Back Exam Back Exam: NORMAL INSPECTION - Neurological Exam Neurological Exam: Alert, Oriented x3 Assessment and Plan - Assessment and Plan (Free Text) Assessment: CAP Asthma w/ exacerbation . On albuterol, ICS and Steroids bid, taper with medrol pack. On empiric abx treatment to finish course today per I.D. All cx negative thus far. No oxygen need . Out of bed to chair. Will need to have f/u PFT in 2-3 weeks to evaluate the extent of her obstructive lung disease.
[2016-09-20 17:54] VITALS: RESP 20
--- NOTE | 2016-09-20 17:59 | CP.PCM.PN ---
Subjective - Date & Time of Evaluation Date of Evaluation: 09/20/16 Time of Evaluation: 09:05 - Subjective Subjective: Feeling better, not in distress, afebrile. Objective - Vital Signs/Intake and Output Vital Signs (last 24 hours): Temp Pulse Resp BP Pulse Ox 97.1 F L 69 20 127/88 93 L 09/20/16 16:00 09/20/16 16:00 09/20/16 16:00 09/20/16 16:00 09/20/16 16:00 Intake and Output: 09/20/16 09/20/16 06:59 18:59 Intake Total 720 360 Output Total 0 Balance 720 360 - Medications Medications: Current Medications Acetaminophen (Tylenol 325mg Tab) 650 mg PO Q6H PRN PRN Reason: Pain, moderate (4-7) Last Admin: 09/17/16 20:11 Dose: 650 mg Albuterol Sulfate (Albuterol 0.083% Inhal Marcella (2.5 Mg/3 Ml) Ud) 1.25 mg IH Q2H PRN PRN Reason: Shortness of Breath Last Admin: 09/17/16 20:39 Dose: 1.25 mg Apixaban (Eliquis) 5 mg PO BID KEITH PRN Reason: Protocol Last Admin: 09/20/16 09:52 Dose: 5 mg Aripiprazole (Abilify) 20 mg PO DAILY KEITH PRN Reason: Protocol Last Admin: 09/20/16 09:52 Dose: 20 mg Budesonide (Pulmicort Respules) 0.5 mg IH [id number] [facility] Last Admin: 09/20/16 07:31 Dose: 0.5 mg Clonazepam (Klonopin) 0.5 mg PO DAILY PRN; Protocol PRN Reason: Anxiety Duloxetine HCl (Cymbalta) 20 mg PO DAILY [facility] Last Admin: 09/20/16 09:53 Dose: 20 mg Folic Acid (Folic Acid) 1 mg PO DAILY [facility] Last Admin: 09/20/16 09:53 Dose: 1 mg Furosemide (Lasix) 20 mg IVP Q12 [facility] Last Admin: 09/20/16 09:53 Dose: 20 mg Guaifenesin/Dextromethorphan (Robitussin Dm) 10 ml PO Q4H PRN PRN Reason: Cough Doxycycline Hyclate 100 mg/ (Sodium Chloride) 100 mls @ 100 mls/hr IVPB Q12 KEITH PRN Reason: Protocol Stop: 09/21/16 22:01 Last Admin: 09/20/16 14:00 Dose: 100 mls/hr Meropenem 1g/NS 100mL IVPB (Meropenem 1g/Ns 100ml Ivpb) 100 mls @ 100 mls/hr IVPB Q12 KEITH PRN Reason: Protocol Stop: 09/21/16 22:01 Last Admin: 09/20/16 09:55 Dose: 100 mls/hr Levothyroxine Sodium (Synthroid) 175 mcg PO ACB KEITH Last Admin: 09/20/16 08:30 Dose: 175 mcg Methylprednisolone (Solu-Medrol) 20 mg IVP DAILY KEITH Last Admin: 09/20/16 09:54 Dose: 20 mg Pantoprazole Sodium (Protonix Ec Tab) 40 mg PO 0630 [facility] Last Admin: 09/20/16 06:03 Dose: 40 mg Pregabalin (Lyrica) 25 mg PO BID KEITH Last Admin: 09/20/16 09:52 Dose: 25 mg Trazodone HCl (Desyrel) 200 mg PO HS KEITH Last Admin: 09/19/16 21:02 Dose: 200 mg Zolpidem Tartrate (Ambien) 10 mg PO HS PRN; Protocol PRN Reason: Insomnia Last Admin: 09/19/16 21:02 Dose: 10 mg - Labs Labs: 09/19/16 05:45 09/19/16 05:45 PT 12.5 Seconds (9.9-11.8) H 09/14/16 13:30 INR 1.16 (0.93-1.08) H 09/14/16 13:30 APTT 41.8 Seconds (23.7-30.8) H 09/14/16 13:30 - Constitutional Appears: Non-toxic, No Acute Distress - Head Exam Head Exam: NORMAL INSPECTION - ENT Exam ENT Exam: Mucous Membranes Moist - Neck Exam Neck Exam: absent: Lymphadenopathy, Meningismus - Respiratory Exam Respiratory Exam: Decreased Breath Sounds - Cardiovascular Exam Cardiovascular Exam: +S1, +S2 - GI/Abdominal Exam GI & Abdominal Exam: Soft. absent: Tenderness Assessment and Plan - Assessment and Plan (Free Text) Plan: Assessment severe sepsis with acute change in sensorium and acute renal failure secondary to right sided healthcare-associated pneumonia with possible gram positive cocci and/or gram negative bacilli, clinically improving rheumatoid arthritis history of transient ischemic attack obstructive sleep apnea Morbid obesity with BMI 40 hypothyroidism bipolar disorder shcizoaffective disorder, S/P gastric bypass surgery Plan on Doxycycline and Merrem (day 6); blood cx are negative; reviewed CXR and CT scan which showed the right-lower lobe consolidation; PCT is elevated but now has normalized; discussed with Dr. Malave - can switch to PO augmentin and Doxycycline for another 2 days to complete therapy Will continue to follow clinically
--- NOTE | 2016-09-20 22:39 | CP.PCM.PN ---
Subjective - Date & Time of Evaluation Date of Evaluation: 09/20/16 Time of Evaluation: 22:10 - Subjective Subjective: Nephrology f/u note; Patient feeling well, no shortness of breath; reports leg edema improved; Objective - Vital Signs/Intake and Output Vital Signs (last 24 hours): Temp Pulse Resp BP Pulse Ox 97.1 F L 69 20 137/89 93 L 09/20/16 16:00 09/20/16 16:00 09/20/16 16:00 09/20/16 21:09 09/20/16 16:00 Intake and Output: 09/20/16 09/21/16 18:59 06:59 Intake Total 360 Output Total 0 Balance 360 - Medications Medications: Current Medications Acetaminophen (Tylenol 325mg Tab) 650 mg PO Q6H PRN PRN Reason: Pain, moderate (4-7) Last Admin: 09/17/16 20:11 Dose: 650 mg Albuterol Sulfate (Albuterol 0.083% Inhal Marcella (2.5 Mg/3 Ml) Ud) 1.25 mg IH Q2H PRN PRN Reason: Shortness of Breath Last Admin: 09/17/16 20:39 Dose: 1.25 mg Apixaban (Eliquis) 5 mg PO BID KEITH PRN Reason: Protocol Last Admin: 09/20/16 18:19 Dose: 5 mg Aripiprazole (Abilify) 20 mg PO DAILY KEITH PRN Reason: Protocol Last Admin: 09/20/16 09:52 Dose: 20 mg Budesonide (Pulmicort Respules) 0.5 mg IH [id number] [facility] Last Admin: 09/20/16 21:08 Dose: 0.5 mg Clonazepam (Klonopin) 0.5 mg PO DAILY PRN; Protocol PRN Reason: Anxiety Duloxetine HCl (Cymbalta) 20 mg PO DAILY [facility] Last Admin: 09/20/16 09:53 Dose: 20 mg Folic Acid (Folic Acid) 1 mg PO DAILY [facility] Last Admin: 09/20/16 09:53 Dose: 1 mg Furosemide (Lasix) 20 mg IVP Q12 [facility] Last Admin: 09/20/16 21:09 Dose: 20 mg Guaifenesin/Dextromethorphan (Robitussin Dm) 10 ml PO Q4H PRN PRN Reason: Cough Doxycycline Hyclate 100 mg/ (Sodium Chloride) 100 mls @ 100 mls/hr IVPB Q12 KEITH PRN Reason: Protocol Stop: 09/21/16 22:01 Last Admin: 09/20/16 22:19 Dose: 100 mls/hr Meropenem 1g/NS 100mL IVPB (Meropenem 1g/Ns 100ml Ivpb) 100 mls @ 100 mls/hr IVPB Q12 KEITH PRN Reason: Protocol Stop: 09/21/16 22:01 Last Admin: 09/20/16 21:14 Dose: 100 mls/hr Levothyroxine Sodium (Synthroid) 175 mcg PO ACB KEITH Last Admin: 09/20/16 08:30 Dose: 175 mcg Methylprednisolone (Solu-Medrol) 20 mg IVP DAILY [facility] Last Admin: 09/20/16 09:54 Dose: 20 mg Pantoprazole Sodium (Protonix Ec Tab) 40 mg PO 0630 [facility] Last Admin: 09/20/16 06:03 Dose: 40 mg Pregabalin (Lyrica) 25 mg PO BID KEITH Last Admin: 09/20/16 18:21 Dose: 25 mg Trazodone HCl (Desyrel) 200 mg PO HS KEITH Last Admin: 09/20/16 21:09 Dose: 200 mg Zolpidem Tartrate (Ambien) 10 mg PO HS PRN; Protocol PRN Reason: Insomnia Last Admin: 09/20/16 22:20 Dose: 10 mg - Labs Labs: 09/19/16 05:45 09/19/16 05:45 PT 12.5 Seconds (9.9-11.8) H 09/14/16 13:30 INR 1.16 (0.93-1.08) H 09/14/16 13:30 APTT 41.8 Seconds (23.7-30.8) H 09/14/16 13:30 - Constitutional Appears: Well, No Acute Distress - Head Exam Head Exam: NORMAL INSPECTION - Eye Exam Eye Exam: Normal appearance Pupil Exam: absent: Unequal - ENT Exam ENT Exam: Mucous Membranes Moist - Neck Exam Neck Exam: Normal Inspection - Respiratory Exam Respiratory Exam: Clear to Ausculation Bilateral, NORMAL BREATHING PATTERN - Cardiovascular Exam Cardiovascular Exam: REGULAR RHYTHM, +S1, +S2 - GI/Abdominal Exam GI & Abdominal Exam: Soft. absent: Distended, Tenderness - Extremities Exam Additional comments: No leg edema - Neurological Exam Neurological Exam: Alert, Awake - Psychiatric Exam Psychiatric exam: Normal Affect, Normal Mood - Skin Skin Exam: Warm. absent: Cyanosis Assessment and Plan (1) Acute renal failure (ARF) Assessment & Plan: Seen in setting of severe sepsis but now resolved; serum creatinine stable despite diuresis with IV lasix; will discontinue further diuresis for now as lower ext edema has resolved; Status: Acute (2) Pneumonia Assessment & Plan: On meropenem and doxycycline, dosed for normal renal function; Status: Acute (3) Diastolic dysfunction Assessment & Plan: Had been having leg edema but otherwise clinically not in CHF; not on any anti- htn meds either (except diuretic added here); can consider chlorthalidone if needing to add any anti-htn med; Status: Acute (4) Anemia Assessment & Plan: Downward trending hgb in setting of acute illness; should check iron studies anyway; Status: Acute
--- NOTE | 2016-09-20 23:35 | PN ---
DATE: 09/20/2016 The patient is in room 364, bed 2. SUBJECTIVE: The patient is feeling better, not in any acute distress and is afebrile. The patient i s sitting out of bed in the chair. Vital signs are stable. T-max is 98.4, pulse 69, respirations 20 , blood pressure is 127/88, pulse ox is 93% on room air. MEDICATIONS: Reviewed. She is on Tylenol p.r.n. She is on albuterol q. 12 hours p.r.n. She is on Eliquis 5 b.i.d. Abilify 20 mg p.o. daily. She is on Pulmicort Respules 0.5 mg inhaled q. 12 hours, Klonopin 0.5 mg p.o. daily, Cymbalta 20 mg p.o. daily, folic acid 1 mg daily, Lasix 20 mg IV q. 12 h ours. She is on Robitussin-DM 10 mL q. 4 hours p.r.n. for coughing. She is on doxycycline 100 mg IV piggyback q. 12 hours. She is on Merrem 1 gram IV q. 12 hours. She is on levothyroxine 175 mcg p.o . daily, Solu-Medrol 20 mg IV daily, pantoprazole 40 mg p.o. daily, Lyrica 25 mg p.o. b.i.d., trazodo ne 200 mg p.o. at bedtime, Ambien 10 mg p.o. at bedtime. LABORATORY DATA: From today were reviewed. White count is 9.6; hemoglobin 9.8; hematocrit 29.8; prem telet count 279,000. Sodium is 143, potassium is 3.7, chloride 108, CO2 of 26, BUN is 25, creatinine 0.8, blood sugar of 72. PT/INR is unremarkable. OBJECTIVE: GENERAL: The patient appears to be nontoxic, in no acute distress. HEENT: Head is normocephalic, atraumatic. Conjunctivae pale. Sclerae are anicteric. Examination o f the oropharynx reveals no oropharyngeal lesions. NECK: Supple. There is no adenopathy. No jugular venous distention noted. LUNGS: Relatively clear to percussion and auscultation. HEART: Reveals PMI to be in the 5th intercostal space inside the midclavicular line. S1 and S2 are normal. No gallop or murmur is heard. ABDOMEN: Soft, nontender. No rebound, rigidity or guarding is noted. EXTREMITIES: Reveal no cyanosis, clubbing or edema. ASSESSMENT NOTES AND PLAN: The patient has severe sepsis, acute changes in sodium in acute renal yuri lure secondary to pneumonia with possible gram-positive and gram-negative bacilli with high procalcit onin improving tremendously with antibiotics. Procalcitonin levels also came down. History of TIA, history of atrial fibrillation, obstructive sleep apnea, morbid obesity, hypothyroidism, bipolar diso rder, schizoaffective disorder, status post gastric bypass surgery. The patient is on IV antibiotics , so I discussed the case with the patient, her and also spoke to ID, Dr. Treviño. The plan is to stop the IV antibiotics as of tonight and we will send her home on p.o. doxycycline in the a.m. t o complete 3 days of oral antibiotics. We will continue to follow the patient clinically. Labs for a.m. have been requested. Betzy Malave MD cc: [id number] TT: 09/20/2016 23:34:36 Confirmation # [id number] Dictation # [id number] giuliano
[2016-09-21] MEDS: Pantoprazole 40 mg EC Tab PO SCH (05:59)
[2016-09-21] MEDS: Budesonide 0.5 mg/2 ml Inhal Susp UD IH SCH (08:16)
[2016-09-21] MEDS: Levothyroxine 175 MCG TAB PO SCH (08:20)
[2016-09-21 08:39] VITALS: BP 115/67; PULSE 77; TEMP 97.5; O2SAT 100
[2016-09-21] MEDS: Meropenem 1g/NS 100mL IVPB 100 ML IVPB SCH (09:38)
[2016-09-21] MEDS: MethylPREDNISolone 40 mg Vial IVP SCH (09:39)
--- NOTE | 2016-09-21 11:25 | PN ---
DATE: 09/21/2016 The patient seen and examined at bedside. She is comfortable. She talks full sentences. She is not in respiratory or otherwise distress. She is comfortably sitting in the chair. PHYSICAL EXAMINATION: VITAL SIGNS: Temperature 97.5, blood pressure 115/67, respiratory rate 20, heart rate 77, oxygen saturation 100% on room air. HEAD AND NECK: Atraumatic. LUNGS: Clear to auscultation bilaterally. HEART: Regular rate and rhythm. S1, S2 normal. ABDOMEN: Soft, nontender, nondistended. MUSCULOSKELETAL: No C/C/E. NEUROLOGIC: The patient moves all extremities spontaneously. SKIN: Moist. PSYCHIATRIC: The patient is alert and oriented x 3, comfortable. LABORATORY DATA: Chest x-ray as of yesterday showed substantially improved pulmonary opacities, almost resolved. LABORATORIES: WBC 9.6, hemoglobin 9.8, platelet count 279. Sodium 143, potassium 3.7, chloride 108, carbon dioxide 26, BUN 25, creatinine 0.8, glucose 131, CPK 158, albumin 3. MEDICATIONS: Abilify, zolpidem, Cymbalta, trazodone, doxycycline, Eliquis, folic acid, Klonopin, Lyrica, meropenem, Protonix, Pulmicort 0.5 mg inhaled q. 12 hours, Solu-Medrol 20 mg IV daily, Synthroid, Tylenol p.r.n. ASSESSMENT AND PLAN: This is a 51-year-old lady who presented with community- acquired pneumonia in the setting of questionable diagnosis/history of asthma. At present time, the patient is respiratory and hemodynamically-ferrell stable. She did not show signs of shortness of breath or significant desaturation during her 6-minute walk test. She does not require supplemental oxygen. I would continue with p.o. antibiotics, taper steroids over 7-8 days. Continue with inhaled corticosteroids. I would recommend to see her primary medical doctor or pulmonary doctor within 7 days of discharge from the hospital. Will continue with deep venous thrombosis and gastrointestinal prophylaxis. Will continue to target euvolemia, euglycemia, normothermia and oxygen saturation more than 90%. Rudy Seymour MD cc: [id number] TT: 09/21/2016 11:24:23 Confirmation # [id number] Dictation # [id number] giuliano MEDINA
--- NOTE | 2016-09-21 12:10 | PN ---
DATE: 09/21/2016 The patient in room 364, bed 2. REASON FOR CONSULTATION: Paroxysmal atrial fibrillation, history of TIA, pneumonia. HISTORY OF PRESENT ILLNESS: A 51-year-old female with past medical history significant for anemia, h istory of paroxysmal atrial fibrillation, admitted with being unresponsive, history of bipolar disord er, schizoaffective disorder. The patient used Plavix before, but due to atrial fibrillation, the pa tient was switched over to Eliquis due to paroxysmal atrial fibrillation. The patient denies any sondra st pain, shortness of breath or palpitation. PHYSICAL EXAMINATION: VITAL SIGNS: Blood pressure 115/67, respirations 20, pulse 77, temperature 97.5. HEAD: Normocephalic. EYES: Pupils normal. Conjunctivae slightly pale. NECK: JVP low. Carotids equal. THORAX: AP diameter normal. LUNGS: No rales. CARDIOVASCULAR: S1, S2. ABDOMEN: Soft, nontender, no organomegaly. EXTREMITIES: No clubbing, no cyanosis. LABORATORY DATA: WBC 9.6, hemoglobin 9.8, hematocrit 29.8, platelet 279. Sodium 143, potassium 3.7, BUN 25, creatinine 0.8, random sugar 141, calcium 8.1. AST 42, ALT 16. Total protein and albumin n ormal. DIAGNOSES: Status post rhabdomyolysis, status post history of paroxysmal atrial fibrillation, histor y of anemia, acute bipolar disorder and multilobar pneumonia. Echo on this admission showed preserve d LV function. RVSP 38 mmHg. PLAN: The patient on Eliquis 5 mg b.i.d., Cymbalta 20 mg daily, Desyrel 200 mg p.o. at bedtime, Lyri ca 25 b.i.d., Meropenem 1 gram IV q. 12 hours, Protonix 40 daily, Solu-Medrol 20 mg IV daily, Synthro id 175 mcg p.o. daily. We will continue present therapy and will follow with you. Gisselle Martínez MD cc: [id number] TT: 09/21/2016 12:09:44 Confirmation # [id number] Dictation # [id number]
--- NOTE | 2016-09-21 13:35 | CP.PCM.PN ---
Subjective - Date & Time of Evaluation Date of Evaluation: 09/21/16 Time of Evaluation: 09:15 - Subjective Subjective: Comfortable on a chair, not in distress, no fevers, cough and breathing are improving. Objective - Vital Signs/Intake and Output Vital Signs (last 24 hours): Temp Pulse Resp BP Pulse Ox 97.1 F L 69 20 137/89 93 L 09/20/16 16:00 09/20/16 16:00 09/20/16 16:00 09/20/16 21:09 09/20/16 16:00 Intake and Output: 09/21/16 09/21/16 06:59 18:59 Intake Total 400 Balance 400 - Medications Medications: Current Medications Acetaminophen (Tylenol 325mg Tab) 650 mg PO Q6H PRN PRN Reason: Pain, moderate (4-7) Last Admin: 09/17/16 20:11 Dose: 650 mg Albuterol Sulfate (Albuterol 0.083% Inhal Marcella (2.5 Mg/3 Ml) Ud) 1.25 mg IH Q2H PRN PRN Reason: Shortness of Breath Last Admin: 09/17/16 20:39 Dose: 1.25 mg Apixaban (Eliquis) 5 mg PO BID KEITH PRN Reason: Protocol Last Admin: 09/20/16 18:19 Dose: 5 mg Aripiprazole (Abilify) 20 mg PO DAILY KEITH PRN Reason: Protocol Last Admin: 09/20/16 09:52 Dose: 20 mg Budesonide (Pulmicort Respules) 0.5 mg IH [id number] [facility] Last Admin: 09/21/16 08:16 Dose: 0.5 mg Clonazepam (Klonopin) 0.5 mg PO DAILY PRN; Protocol PRN Reason: Anxiety Duloxetine HCl (Cymbalta) 20 mg PO DAILY [facility] Last Admin: 09/20/16 09:53 Dose: 20 mg Folic Acid (Folic Acid) 1 mg PO DAILY [facility] Last Admin: 09/20/16 09:53 Dose: 1 mg Furosemide (Lasix) 20 mg IVP Q12 [facility] Last Admin: 09/20/16 21:09 Dose: 20 mg Guaifenesin/Dextromethorphan (Robitussin Dm) 10 ml PO Q4H PRN PRN Reason: Cough Doxycycline Hyclate 100 mg/ (Sodium Chloride) 100 mls @ 100 mls/hr IVPB Q12 KEITH PRN Reason: Protocol Stop: 09/21/16 22:01 Last Admin: 09/20/16 22:19 Dose: 100 mls/hr Meropenem 1g/NS 100mL IVPB (Meropenem 1g/Ns 100ml Ivpb) 100 mls @ 100 mls/hr IVPB Q12 KEITH PRN Reason: Protocol Stop: 09/21/16 22:01 Last Admin: 09/20/16 21:14 Dose: 100 mls/hr Levothyroxine Sodium (Synthroid) 175 mcg PO ACB KEITH Last Admin: 09/20/16 08:30 Dose: 175 mcg Methylprednisolone (Solu-Medrol) 20 mg IVP DAILY [facility] Last Admin: 09/20/16 09:54 Dose: 20 mg Pantoprazole Sodium (Protonix Ec Tab) 40 mg PO 0630 [facility] Last Admin: 09/21/16 05:59 Dose: 40 mg Pregabalin (Lyrica) 25 mg PO BID KEITH Last Admin: 09/20/16 18:21 Dose: 25 mg Trazodone HCl (Desyrel) 200 mg PO HS KEITH Last Admin: 09/20/16 21:09 Dose: 200 mg Zolpidem Tartrate (Ambien) 10 mg PO HS PRN; Protocol PRN Reason: Insomnia Last Admin: 09/20/16 22:20 Dose: 10 mg - Labs Labs: 09/19/16 05:45 09/19/16 05:45 PT 12.5 Seconds (9.9-11.8) H 09/14/16 13:30 INR 1.16 (0.93-1.08) H 09/14/16 13:30 APTT 41.8 Seconds (23.7-30.8) H 09/14/16 13:30 - Constitutional Appears: Non-toxic, No Acute Distress - Head Exam Head Exam: NORMAL INSPECTION - Neck Exam Neck Exam: absent: Lymphadenopathy, Meningismus - Respiratory Exam Respiratory Exam: Decreased Breath Sounds - Cardiovascular Exam Cardiovascular Exam: +S1, +S2 - GI/Abdominal Exam GI & Abdominal Exam: Soft. absent: Tenderness Assessment and Plan - Assessment and Plan (Free Text) Plan: Assessment severe sepsis with acute change in sensorium and acute renal failure secondary to right sided healthcare-associated pneumonia with possible gram positive cocci and/or gram negative bacilli, clinically improving rheumatoid arthritis history of transient ischemic attack obstructive sleep apnea Morbid obesity with BMI 40 hypothyroidism bipolar disorder shcizoaffective disorder, S/P gastric bypass surgery Plan on Doxycycline and Merrem (day 7); blood cx are negative; reviewed CXR and CT scan which showed the right-lower lobe consolidation; PCT is elevated but now has normalized; discussed with Dr. Malave previously - can switch to PO augmentin and Doxycycline for another 2 days to complete therapy Will continue to follow clinically while the patient is in the hospital
== END 2016-09-21 16:42 | disposition home or self-care (01) ==
LOC: ED 12:58 → ERH 15:39 → 2RSO 16:49 → 3RNO 09-16 11:45
PROVIDERS: ADMIT Family Medicine; ATTEND Family Medicine
DX: A41.9 Sepsis, unspecified organism (principal); G92 Toxic encephalopathy; N17.9 Acute kidney failure, unspecified; J18.9 Pneumonia, unspecified organism; I13.0 Hypertensive heart and chronic kidney disease with heart failure and stage 1 through stage 4 chronic kidney disease, or unspecified chronic kidney disease; J44.0 Chronic obstructive pulmonary disease with (acute) lower respiratory infection; K91.2 Postsurgical malabsorption, not elsewhere classified; I50.30 Unspecified diastolic (congestive) heart failure; J45.901 Unspecified asthma with (acute) exacerbation; M62.82 Rhabdomyolysis; Z68.41 Body mass index [BMI] 40.0-44.9, adult; J98.11 Atelectasis; E86.1 Hypovolemia; E11.22 Type 2 diabetes mellitus with diabetic chronic kidney disease; E83.51 Hypocalcemia; E66.01 Morbid (severe) obesity due to excess calories; E03.9 Hypothyroidism, unspecified; D63.8 Anemia in other chronic diseases classified elsewhere; R65.20 Severe sepsis without septic shock; N18.9 Chronic kidney disease, unspecified; R31.29 Other microscopic hematuria; E87.6 Hypokalemia; F31.9 Bipolar disorder, unspecified; F25.9 Schizoaffective disorder, unspecified; F41.0 Panic disorder [episodic paroxysmal anxiety]; G47.33 Obstructive sleep apnea (adult) (pediatric); E88.09 Other disorders of plasma-protein metabolism, not elsewhere classified; I48.0 Paroxysmal atrial fibrillation; M06.9 Rheumatoid arthritis, unspecified; Y95 Nosocomial condition; Z79.01 Long term (current) use of anticoagulants; Z79.899 Other long term (current) drug therapy; Z86.73 Personal history of transient ischemic attack (TIA), and cerebral infarction without residual deficits; Z87.01 Personal history of pneumonia (recurrent); Z87.442 Personal history of urinary calculi; Z98.84 Bariatric surgery status; Z88.5 Allergy status to narcotic agent; Z88.8 Allergy status to other drugs, medicaments and biological substances; Z91.041 Radiographic dye allergy status; Z88.6 Allergy status to analgesic agent; R00.0 Tachycardia, unspecified; I08.3 Combined rheumatic disorders of mitral, aortic and tricuspid valves; G47.00 Insomnia, unspecified; J45.40 Moderate persistent asthma, uncomplicated

== ENCOUNTER 2016-10-02 12:00 | Observation (INO) | payer MEDICAID ==
[2016-10-02 12:18] VITALS: BMI 37.9
[2016-10-02] MEDS ORDERED: Sodium Chloride 0.9% 1,000 ML IV STA (12:35)
--- NOTE | 2016-10-02 12:36 | ED PDOC ---
Arrival/HPI - General Chief Complaint: Weakness/Neurological Deficit Time Seen by Provider: 10/02/16 12:24 Historian: Patient - History of Present Illness Narrative History of Present Illness (Text): 10/02/16 12:31 51 year old female with a past medical history that includes anemia presents to the emergency department with generalized weakness for the past few days. Patient reports she was recently treated in the hospital for pneumonia. Patient states she is fatigued and reports cough and body aches. No nausea, vomiting, diarrhea, chest pain, urinary changes or other symptoms. Time/Duration: < week Symptom Onset: Gradual Symptom Course: Unchanged Modifying Factors (Text): None Past Medical History - Provider Review Nursing Documentation Reviewed: Yes - Infectious Disease Hx of Infectious Diseases: None - Tetanus Immunization Tetanus Immunization: Unknown - Cardiac Hx Cardiac Disorders: No - Pulmonary Hx Respiratory Disorders: Yes Hx Pneumonia: Yes Hx Sleep Apnea: Yes (using c-pap at home) - Neurological Hx Neurological Disorder: No - HEENT Hx HEENT Disorder: No - Renal Hx Renal Disorder: Yes Hx Kidney Stones: Yes - Endocrine/Metabolic Hx Endocrine Disorders: Yes Hx Diabetes Mellitus Type 2: Yes Hx Hypothyroidism: Yes - Hematological/Oncological Hx Blood Disorders: Yes Hx Anemia: Yes (multiple blood transfusion) - Integumentary Hx Dermatological Disorder: No - Musculoskeletal/Rheumatological Hx Musculoskeletal Disorders: Yes - Gastrointestinal Hx Gastrointestinal Disorders: Yes (gi bleed) - Genitourinary/Gynecological Hx Genitourinary Disorders: No - Psychiatric Hx Psychophysiologic Disorder: No Hx Substance Use: No - Surgical History Hx Gastric Bypass Surgery: Yes (16 years ago.) Other/Comment: Port insertion - Anesthesia Hx Anesthesia: Yes Hx Anesthesia Reactions: No Hx Malignant Hyperthermia: No - Suicidal Assessment Feels Threatened In Home Enviroment: No Family/Social History - Physician Review Nursing Documentation Reviewed: Yes Family/Social History: Unknown Family HX Smoking Status: Never Smoked Hx Alcohol Use: No Hx Substance Use: No Hx Substance Use Treatment: No Allergies/Home Meds Allergies/Adverse Reactions: Allergies Iodinated Contrast Media - Oral and [Iodinated Contrast Media - IV Dye] Allergy (Verified 10/02/16 12:19) RASH iodine Allergy (Verified 10/02/16 12:19) RASH meperidine Allergy (Verified 10/02/16 12:19) RASH Home Medications: Home Meds Medication Instructions Recorded Confirmed Zolpidem Tartrate [Ambien] 10 mg PO HS 09/12/14 10/02/16 ARIPiprazole [Abilify] 20 mg PO HS 10/16/14 10/02/16 Pantoprazole [Protonix EC Tab] 40 mg PO DAILY 12/12/14 10/02/16 Pregabalin [Lyrica] 50 mg PO BID 04/07/15 10/02/16 Ergocalciferol (Vitamin D2) 50,000 unit PO QWK 12/28/15 10/02/16 [Vitamin D2] Folic Acid 1 mg PO DAILY 12/28/15 10/02/16 Levothyroxine [Synthroid] 175 mcg PO DAILY 09/14/16 10/02/16 Apixaban [Eliquis] 5 mg PO BID 10/02/16 10/02/16 Atorvastatin [Lipitor] 20 mg PO DAILY 10/02/16 10/02/16 DULoxetine [Cymbalta] 20 mg PO BID 10/02/16 10/02/16 Glucagon [Glucagen Diagnostic Kit] 1 mg IM PRN PRN 10/02/16 10/02/16 clonazePAM [Klonopin] 1 mg PO PRN PRN 10/02/16 10/02/16 oxyCODONE/Acetaminophen [Percocet 1 tab PO PRN PRN 10/02/16 10/02/16 5/325 mg Tab] traZODone [Desyrel] 200 mg PO HS 10/02/16 10/02/16 Review of Systems - Review of Systems Constitutional: Fatigue. absent: Fevers Eyes: absent: Vision Changes ENT: absent: Hearing Changes Respiratory: Cough Cardiovascular: GONGORA. absent: Chest Pain, Edema Gastrointestinal: absent: Abdominal Pain, Stool Changes, Diarrhea Genitourinary Female: absent: Dysuria, Hematuria Musculoskeletal: absent: Back Pain Skin: absent: Rash Neurological: Dizziness. absent: Headache, Focal Weakness, Seizure Endocrine: absent: Diaphoresis, Polyuria Hemo/Lymphatic: absent: Easy Bleeding Psychiatric: absent: Depression Physical Exam - Physical Exam Narrative Physical Exam (Text): Head: Atraumatic. Normocephalic. Eyes: PERRL. EOMI. Conjunctivae are not pale. ENT: Mucous membranes are dry. Oropharynx is clear and symmetric. Neck: Supple. Full ROM. No JVD. No lymphadenopathy. Cardiovascular: Regular rate. Regular rhythm. Systolic murmur. Pulmonary/Chest: No evidence of respiratory distress. Clear to auscultation bilaterally. No wheezing, rales or rhonchi. Abdominal: Soft and non-distended. There is no tenderness. No rebound, guarding, or rigidity. No organomegaly. Good bowel sounds. Back: No CVA tenderness. Extremities: No edema. No cyanosis. No clubbing. Full range of motion in all extremities. No calf tenderness. Skin: Pale. Skin is warm and dry. No petechiae. No purpura. Neurological: Alert, awake, and oriented to person, place, time, and situation. Normal speech. Motor and sensory exam intact. Ambulatory. No meningeal signs. Psychiatric: Good eye contact. Normal interaction, affect, and behavior. 10/02/16 18:30 Vital Signs Reviewed: Yes Vital Signs Temp Pulse Resp BP Pulse Ox 10/02/16 16:34 98.4 F 75 19 108/71 98 10/02/16 14:28 106/61 10/02/16 13:49 98.6 F 10/02/16 12:30 97.6 F 94 H 18 108/68 94 L Temperature: Afebrile Blood Pressure: Hypotensive Pulse: Regular Respiratory Rate: Normal Appearance: Positive for: Well-Appearing, Non-Toxic, Comfortable Pain Distress: None Mental Status: Positive for: Alert and Oriented X 3 Medical Decision Making ED Course and Treatment: Differential diagnosis includes but is not limited to: Pneumonia vs sepsis vs dehydration Plan: Will give IV fluids, get chest x-ray, check labs, and reassess. Prior Visits: Patient's previous medical records were reviewed. Patient was seen on 09/19/16 for altered mental status and admitted for pneumonia. Patient had a CT Chest without contrast on 09/15/16 which showed: IMPRESSION: Patchy ground-glass opacities and airspace consolidation at the right lung suspicious for multifocal pneumonia. Other etiology such as neoplasm is less likely. Follow-up reassessment is suggested. Trace right pleural effusion. Patient had a CT Head without contrast on 09/14/16 which showed IMPRESSION: Normal CT of the Head. Progress Notes: The above PRIOR imaging studies reviewed. Patient recently admitted to ICU for pneumonia, renal failure. Patient states that since discharge she is feeling weak and dizzy. On exam, she is alert, NO confusion, oriented, appropriate. No acute or focal motor or sensory deficits. No acute change in speech or gait. Family at bedside states she get extremely weak although denies pain or altered mental status to me. IV fluids given for hypotension. She has NO WHEEZING OR HYPOXIA. Chest x-ray read by Dr. Daniels shows no active disease. Given recent ct chest findings, limitations of cxr reviewed with patient and family. Will admit to telemetry for serial exams and iv hydration. Currently neuro intact. Case d/w covering physician for Dr. Malave per patient's request, admission accepted by Dr. Malave's service for observation. She denies chest pain or sob on re-evaluation. 10/02/16 18:30 - Lab Interpretations Lab Results: 10/02/16 13:23 10/02/16 13:23 Lab Results 10/02/16 13:23: WBC 11.2 H, RBC 3.42 L, Hgb 10.6 L, Hct 32.5 L, MCV 95.0, MCH 31.0, MCHC 32.6, RDW 15.5 H, Plt Count 282, MPV 10.0, Gran % 75.7 H, Lymph % ( Auto) 15.3 L, Loíza % (Auto) 7.4 H, Eos % (Auto) 1.3 L, Baso % (Auto) 0.3, Gran # 8.50 H, Lymph # 1.7, Loíza # 0.8 H, Eos # 0.2, Baso # 0.03, PT 10.4, INR 0.96, APTT 24.7, Sodium 141, Potassium 4.0, Chloride 105, Carbon Dioxide 28, Anion Gap 12, BUN 26 H, Creatinine 0.9, Est GFR ( Amer) > 60, Est GFR (Non-Af Amer) > 60, Random Glucose 88, Calcium 9.5, Total Bilirubin 0.5, AST 19, ALT 28 , Alkaline Phosphatase 85, Lactate Dehydrogenase 503, Total Creatine Kinase 35, Troponin I < 0.01 D, NT-Pro-B Natriuret Pep 302, Total Protein 7.0, Albumin 3.5 , Globulin 3.5, Albumin/Globulin Ratio 1.0 L 10/02/16 13:21: pO2 88 H, VBG pH 7.46 H, VBG pCO2 43.0, VBG HCO3 30.6 H, VBG Total CO2 31.9 H, VBG O2 Sat (Calc) 98.6 H, VBG Base Excess 6.0 H, VBG Potassium 4.0, Glucose 87, Lactate 0.8, FiO2 21.0, Sodium 142.0, Chloride 112.0 H, Venous Blood Potassium 4.0 10/02/16 12:24: POC Glucose (mg/dL) 77 - RAD Interpretation Radiology Orders: 10/02/16 12:33 CHEST PORTABLE [RAD] Stat Centrifugal Chiller Technician: Radiologist - EKG Interpretation EKG Interpretation (Text): EKG at 12:23 normal sinus rhythm with no acute st elevations Interpreted by ED Physician: Yes Type: 12 lead EKG - Medication Orders Current Medication Orders: Apixaban (Eliquis) 5 mg PO BID KEITH PRN Reason: Protocol Folic Acid (Folic Acid) 1 mg PO DAILY KEITH Sodium Chloride (Sodium Chloride 0.9%) 1,000 mls @ 100 mls/hr IV .Q10H KEITH Last Admin: 10/02/16 16:27 Dose: 100 MLS/HR eMAR Start Stop Document 10/02/16 16:27 GMI (Rec: 10/02/16 16:27 GMI [id number]) Intravenous Solution Start Date 10/02/16 Start Time 16:27 Pantoprazole Sodium (Protonix Ec Tab) 40 mg PO ACB KEITH Trazodone HCl (Desyrel) 200 mg PO HS KEITH Zolpidem Tartrate (Ambien) 10 mg PO HS PRN; Protocol PRN Reason: Insomnia Discontinued Medications Sodium Chloride (Sodium Chloride 0.9%) 1,000 mls @ 1,000 mls/hr IV .Q1H STA Stop: 10/02/16 13:34 Last Admin: 10/02/16 13:45 Dose: 1,000 MLS/HR eMAR Start Stop Document 10/02/16 13:45 GMI (Rec: 10/02/16 13:46 GMI [id number]) Intravenous Solution Start Date 10/02/16 Start Time 13:45 End Date 10/02/16 End time 16:35 Total Infusion Time 170 - Scribe Statement The provider has reviewed the documentation as recorded by the Malathi Chan All medical record entries made by the Babitaibaniyah were at my direction and personally dictated by me. I have reviewed the chart and agree that the record accurately reflects my personal performance of the history, physical exam, medical decision making, and the department course for this patient. I have also personally directed, reviewed, and agree with the discharge instructions and disposition. Disposition/Present on Arrival - Present on Arrival Any Indicators Present on Arrival: No History of DVT/PE: No History of Uncontrolled Diabetes: No Urinary Catheter: No History of Decub. Ulcer: No History Surgical Site Infection Following: Bariatric Surgery, None - Disposition Have Diagnosis and Disposition been Completed?: Yes Diagnosis: Dehydration, Hypotension, Anemia Disposition: HOSPITALIZED Disposition Time: 15:00 Patient Plan: Admission, Observation Condition: FAIR
[2016-10-02 13:24] LABS: VENOUS BLOOD PH 7.46 (7.32-7.43)
[2016-10-02 13:24] LABS: ADD MANUAL DIFF? NO
[2016-10-02 13:31] LABS: BASO # 0.03 K/mm3 (0.0-2.0); BASO % 0.3 % (0.0-3.0); EOS # 0.2 (0.0-0.7); EOS % 1.3 % (1.5-5.0); GRAN % 75.7 % (50.0-68.0); HEMATOCRIT 32.5 % (36.0-48.0); LYMPH # 1.7 (1.2-3.4); LYMPH % 15.3 % (22.0-35.0); MEAN CORPUSCULAR HGB CONC 32.6 g/dl (31.0-37.0); MONO # 0.8 (0.1-0.6); MONO % 7.4 % (1.0-6.0); PLATELET COUNT 282 10^3/uL (120.0-450.0); RED CELL DISTRIBUTION WIDTH 15.5 % (11.5-14.5); WHITE BLOOD COUNT 11.2 10^3/ul (4.5-11.0)
[2016-10-02 13:38] LABS: INR 0.96 (0.93-1.08); PARTIAL THROMBOPLASTIN TIME 24.7 Seconds (23.7-30.8)
[2016-10-02 13:40] LABS: ALKALINE PHOSPHATASE 85 U/L (38-133); ALT/SGPT 28 U/L (7-56); AST/SGOT 19 U/L (15-39); BILIRUBIN,TOTAL 0.5 mg/dL (0.2-1.3); BLOOD UREA NITROGEN 26 mg/dL (7-21); CALCIUM 9.5 mg/dL (8.4-10.5); CARBON DIOXIDE 28 mmol/L (21-33); CHLORIDE 105 mmol/L (98-107); GFR AFRICAN-AMERICAN > 60; GLUCOSE,RANDOM 88 mg/dL (70-110); SODIUM 141 mmol/L (132-148)
--- NOTE | 2016-10-02 13:54 | RAD ---
HISTORY: weakness, hx of pneumonia COMPARISON: 09/19/2016 FINDINGS: LUNGS: No active pulmonary disease. PLEURA: No significant pleural effusion identified, no pneumothorax apparent. CARDIOVASCULAR: Normal. OSSEOUS STRUCTURES: No significant abnormalities. VISUALIZED UPPER ABDOMEN: Normal. OTHER FINDINGS: None. IMPRESSION: No active disease.
[2016-10-02 14:04] LABS: TROPONIN I < 0.01 ng/mL
[2016-10-02] MEDS: Sodium Chloride 0.9% 1,000 ML IV SCH (16:27)
[2016-10-02] MEDS: Insulin Reg-LOW-Coverage SC SCH (21:46)
[2016-10-03] MEDS: Sodium Chloride 0.9% 1,000 ML IV SCH ×3 (06:13→23:51)
[2016-10-03] MEDS: Insulin Reg-LOW-Coverage SC SCH ×4 (07:49→22:00)
[2016-10-03] MEDS: Pantoprazole 40 mg EC Tab PO SCH (08:02)
[2016-10-03] MEDS: Levothyroxine 175 MCG TAB PO SCH (08:02)
[2016-10-03] MEDS ORDERED: Barium Sulfate Susp 2.1% w/v, 2.0% w/w 450 mL Bottle PO ONE (14:52)
--- NOTE | 2016-10-03 16:37 | CARD ---
APPROVED REPORT EKG Measurement Heart [id number] <Conclusion> Normal sinus rhythm Normal ECG
--- NOTE | 2016-10-03 18:07 | CON ---
DATE: 10/03/2016 Seen and examined at the bedside this afternoon. The chart was reviewed. REQUEST FOR CONSULT: Multiple loose stools. HISTORY OF PRESENT ILLNESS: This is a 51-year-old obese female with a past medical history of anemia, gastric bypass, TIA on Plavix, bipolar disorder, went to the Emergency Room for complaints of genralized weakness. She was recently hospitalized for Pnuemonia on antibiotics at home. She was brought to the Emergency Room for further evaluation. The patient complains of loose bowel movements at times after eating. Denies any nausea, vomiting, or abdominal pain. No reports of any melena or bright red blood per rectum. Denies any shortness of breath or chest pains. She did have colonoscopy in the past in 07/2015 for iron deficiency anemia. She also had an endoscopy at the same time. 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 The prep was suboptimal and recommended a repeat colonoscopy in a year. As for the endoscopy, she was found to have erythema in the stomach which was biopsied. Her colonic biopsies of the right colon were negative for microscopic colitis and the left colon as well. Both biopsies showed mild submucosal edema with melanosis coli. Her gastric biopsies of the jejunum were negative for active inflammation and gastric biopsy was negative for H. pylori, but did show mild chronic inactive gastritis. No intestinal metaplasia. 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 PAST SURGICAL HISTORY: Gastric bypass. FAMILY HISTORY: Denies. SOCIAL HISTORY: Denies tobacco use, ETOH or substance abuse. ALLERGIES: IODINATED CONTRAST MEDIA, ORAL AND IV, MEPERIDINE. MEDICATIONS: Reviewed as per MAR. REVIEW OF SYSTEMS: Systems were reviewed with positive findings, see HPI. VITAL SIGNS: Temperature is 97.6, blood pressure is 103/67, pulse 79, respirations 19, 93% on room air. LABORATORY DATA: From 10/02, WBC 11.2, H and H is 10.6 and 32.5, platelets is 282. PT is 10.4, INR is 0.96, PTT 24.7. Sodium 141, K 4.2, BUN 26, creatinine 0.9. LFTs are within normal limits. She had a total creatinine kinase of 35. Troponin was negative. BNP was 302. IMAGING: She had a chest x-ray on 10/02 and this was negative for active pulmonary disease. No pleural effusion or pneumothorax apparent. PHYSICAL EXAMINATION: HEENT: Sclerae anicteric. NECK: Supple. CARDIAC: S1, S2. LUNGS: Decreased breath sounds but good air entry, no rales or wheeze. ABDOMEN: With bowel sounds, softly obese, nontender on palpation. No rebound, guarding, or organomegaly. EXTREMITIES: No edema. NEUROLOGIC: Awake, alert, and oriented. ASSESSMENT: This is a 51-year-old female with a history of gastric bypass, anemia, transient ischemic attack, who came to the Emergency Room with complaints of generalized weakness. Recently treated for pneumonia, rule out any sepsis. The patient is complaining of diarrhea sometimes after eating. Rule out any celiac disease, malabsorption and rule out any Clostridium difficile. The patient was recently discharged treated for pneumonia, on antibiotics. PLAN: Cholesterol studies for fat. We will also request for C. diff. Request for celiac disease and obtain a CT scan of abdomen and pelvis with only oral contrast of barium, Readi-Cat, as the PATIENT IS ALLERGIC TO IODINATED CONTRAST MEDIA. This was discussed with the patient and at the bedside who agree. Continue diet as tolerated. The patient has history of TIA. She is on Eliquis. History of anemia, gastritis, gastric bypass. Continue GI prophylaxis. She is on Protonix. The patient has history of bipolar disorder, on Abilify, Cymbalta. Thank you for this consult and for allowing us to participate in your patient's care. We will make further recommendations based upon patient's clinical course. The patient was seen and case discussed with Dr. Sanchez. Bee DOLL cc: [id number] TT: 10/03/2016 18:06:17 Confirmation # [id number] Dictation # [id number] eli MEDINA
--- NOTE | 2016-10-04 00:14 | HP ---
CHIEF COMPLAINT: Progressive weakness, not feeling well and inability to get around, sleeping all da y. The patient called me over the phone over the weekend and advised her to come to the hospital sin ce she was not improving. She had been seen in the office a few days before, been given IV fluids fo r vague abdominal complaints of right lower quadrant cramps and loose bowel movements. The patient w as given IV hydration and felt better and we have drawn blood for thyroid hormone level, TSH, T3, T4 to make sure that her medicines may need to be adjusted and the patient was told to report next week, but because she was not improving, she had called me and we told her to go to the Emergency Room. T he patient has been admitted through the ER with complaints of progressive weakness and has been admi tted to the floor. Currently, the patient is examined on the floor. The patient was recently in the hospital for pneumonia, bilateral pneumonia, for which she was treated with IV antibiotics. She gra dually improved. She had been sent home on oral doxycycline, which she completed about a week ago. PAST MEDICAL HISTORY: Significant for schizoaffective disorder. She is on psych medicines for the s bc and she has been seen at the [facility]. History of having had pituitary tumor surger y many years ago. History of gastric bypass in the year 1999. The patient has had a diagnosis of ir on deficiency anemia. She has had multiple episodes of what appear to be bacterial overgrowth syndro me requiring intermittent antibiotics. The patient has received IV iron in the past. She is hypothy roid, for which she is taking Synthroid 175 mcg a day. She has had transient hypoglycemia, probably related to pituitary dysfunction, has been followed by Dr. Live, the ingot header, as well. ALLERGIES: THE PATIENT IS ALLERGIC TO IV DYE. SHE ALSO HAS ALLERGIES TO MEPERIDINE. HOME MEDICATIONS: Reviewed. She is on zolpidem 10 mg p.o. at bedtime, Abilify 20 mg p.o. at bedtime , pantoprazole 40 mg daily, Lyrica 50 mg p.o. b.i.d., vitamin D 50,000 units p.o. once a week, folic acid 1 mg daily, Synthroid 175 mcg daily. She is on Eliquis 5 mg p.o. b.i.d., Lipitor 20 mg p.o. luz maria ly, Cymbalta 20 mg p.o. b.i.d. She has Glucagon kit with her 1 mg IM p.r.n. if she should become hyp oglycemic. She is on Klonopin 1 mg p.o. p.r.n. She is on oxycodone 5 tablets p.o. q. 4 hours p.r.n. She is on trazodone 200 mg p.o. at bedtime. REVIEW OF SYSTEMS: The patient denies any history of fevers, no chills, no nausea or vomiting. The patient does complain of right lower quadrant pain, discomfort and some diarrhea. More importantly, the patient has been feeling increasingly exhausted and tired and has been sleeping several hours in a day with no energy or pep to walk around. PHYSICAL EXAMINATION: GENERAL: The patient is examined in bed. HEENT: Head is normocephalic, atraumatic. Conjunctivae pale. Sclerae are anicteric. Pupils are eq ually reactive to light and accommodation. Examination of the oropharynx reveals no oropharyngeal le sions. NECK: Supple. There is no adenopathy noted. No jugular venous distention noted. CARDIOVASCULAR: S1 and S2 to be normal. Systolic ejection murmur at the lower left sternal border. LUNGS: Reveals it to be clear to percussion and auscultation. ABDOMEN: Reveals it to be soft and nondistended. The patient has vague right lower quadrant tendern ess. No rebound, guarding or rigidity is noted. No organomegaly is noted. Bowel sounds are present . BACK: Reveals no CVA tenderness. Spine is also unremarkable without any tenderness. EXTREMITIES: Reveals no cyanosis, clubbing or edema. The patient has full range of motion of all 4 extremities. There is no calf tenderness noted. SKIN: Pale, warm and dry, no petechia, no purpura is noted. NEUROLOGIC: The patient is awake, alert and oriented to time, place and person, has normal speech. The patient is ambulatory by itself without any meningeal signs. PSYCHIATRIC: The patient has good eye contact, normal interaction. VITAL SIGNS: Reveal T-max of 98.4, pulse 75, respirations 18, blood pressure is 108/71, pulse ox is 98% on room air. ASSESSMENT NOTES AND PLAN: The patient has been having intermittent loose bowel movements while in t ER. The patient's previous medical records were also reviewed for the altered mental status and p neumonia during the last admission and had revealed patchy ground glass opacity and airspace consolid ation in the right lung, suspect suspicious for multifocal pneumonia. Other etiologies such as neopl dori was less slightly. The patient was treated successfully with antibiotics at that time. The tommy cason had a CAT scan on 09/14/2016, which revealed normal CAT scan. The patient tells me that since d malka has been feeling weak and dizzy. We were going to check the patient for again any changes i n her thyroid function. Blood cultures have been drawn so as to make sure that we are not missing an ything with repeated infection. The patient is alert and oriented to time, place and person. The sebastian dumont is going to be started on IV fluids for hypertension. Chest x-ray shows no active disease give n the recent chest findings with limitation of the chest x-ray. We discussed with the patient and krista nguyễn. The patient is going to be admitted for active hydration. We will also try to get ID to see t he patient and more importantly GI to see the patient to comment on the status of her intestinal func tions at this time. We will continue to monitor the patient while in the hospital. Labs were drawn today and reveal a white count of 11.2, hemoglobin 10.6, hematocrit 32.5, platelet count of 282,000. Sodium is 141, K is 4.0, chloride is 104, CO2 is 28, BUN is 26, creatinine is 0.9. PLAN: As above. We will continue IV fluids. Get GI opinion and make sure we are not missing anythi ng in the form of an acidotic infection. While in the hospital, make sure GI assesses her and get he r an appointment for possible endoscopy to screen her for blind loop syndrome or bacterial overgrowth syndrome. The patient has had a workup about a year ago with both an endoscopy and colonoscopy. We will check with Dr. Sanchez to look at those numbers and the reports before commenting on what else I can do for her at this juncture. Routine post exam instructions have been given to the patient. I told the patient we will check her thyroid again and make sure that we may have to adjust the dose of the Synthroid. I told her we will also get the psychiatrist comment on the status of her medicine s at this time while she is in the hospital. I spoke in length with the patient and the , and all questions were answered to the best of my ability. Betzy Malave MD cc: [id number] TT: 10/04/2016 00:13:40 fl
--- NOTE | 2016-10-04 01:43 | CON ---
DATE: 10/03/2016 SUBJECTIVE: This patient was seen and evaluated earlier 10/03/2016. Discussed with the patient's family who was at bedside. The concern is episodes of diarrhea, mostly postprandial. The patient also has a history of hypomagnesemia. Status post gastric bypass. Previous GI workup was reviewed. The patient had an EGD and a colonoscopy done in 07/2015 and the patient had biopsies negative for any celiac disease. The patient's colonoscopy was fair preparation. No obvious large lesion noticed. The patient was due to have repeat GI evaluation by Dr. Wills, but it was canceled as the patient was admitted at that time for TIA. PHYSICAL EXAMINATION: ABDOMEN: Soft. There is no mass, no tenderness. IMPRESSION: Status post gastric bypass and chronic diarrhea, anemia, hypomagnesemia, rule out obstruction. We would request a CT of the abdomen and pelvis with p.o. contrast and stool for fat. We will continue to closely follow up her care and suggest further management based on the clinical course. Radhika Sanchez MD cc: [id number] TT: 10/04/2016 01:43:07 Confirmation # [id number] Dictation # [id number] giuliano MEDINA
[2016-10-04 06:44] LABS: ADD MANUAL DIFF? NO
[2016-10-04 06:59] LABS: ALB/GLOB RATIO 0.9 (1.1-1.8); ALKALINE PHOSPHATASE 75 U/L (38-133); ALT/SGPT 28 U/L (7-56); AST/SGOT 22 U/L (15-39); BILIRUBIN,TOTAL 0.5 mg/dL (0.2-1.3); BLOOD UREA NITROGEN 12 mg/dL (7-21); CALCIUM 7.9 mg/dL (8.4-10.5); CARBON DIOXIDE 28 mmol/L (21-33); CHLORIDE 107 mmol/L (98-107); GFR AFRICAN-AMERICAN > 60; GLUCOSE,RANDOM 78 mg/dL (70-110); POTASSIUM 3.8 mmol/L (3.6-5.0); SODIUM 142 mmol/L (132-148); TOTAL PROTEIN 6.3 g/dL (5.8-8.3)
[2016-10-04 07:24] LABS: BASO # 0.03 K/mm3 (0.0-2.0); BASO % 0.4 % (0.0-3.0); EOS # 0.2 (0.0-0.7); EOS % 2.1 % (1.5-5.0); GRAN # 3.91 (1.4-6.5); GRAN % 55.7 % (50.0-68.0); HEMATOCRIT 29.4 % (36.0-48.0); LYMPH # 2.2 (1.2-3.4); LYMPH % 30.7 % (22.0-35.0); MEAN CORPUSCULAR HEMOGLOBIN 30.7 pg (25.0-35.0); MEAN PLATELET VOLUME 10.3 fl (7.0-11.0); MONO # 0.8 (0.1-0.6); MONO % 11.1 % (1.0-6.0); PLATELET COUNT 266 10^3/uL (120.0-450.0); RED CELL DISTRIBUTION WIDTH 15.2 % (11.5-14.5)
[2016-10-04] MEDS: Insulin Reg-LOW-Coverage SC SCH ×4 (07:37→22:00)
[2016-10-04] MEDS: Pantoprazole 40 mg EC Tab PO SCH (07:58)
[2016-10-04] MEDS: Levothyroxine 175 MCG TAB PO SCH (07:58)
--- NOTE | 2016-10-04 08:40 | CT ---
PROCEDURE: CT Abdomen and Pelvis with contrast HISTORY: Diarrhea/allergic to idodine,give barium/redicat COMPARISON: None. TECHNIQUE: CT scan of the abdomen and pelvis was performed without administration of intravenous contrast. Oral contrast was administered. Coronal and sagittal reformatted images were obtained. Radiation dose: Total exam DLP = 1439.85 mGy-cm. This CT exam was performed using one or more of the following dose reduction techniques: Automated exposure control, adjustment of the mA and/or kV according to patient size, and/or use of iterative reconstruction technique. FINDINGS: LOWER THORAX: There is ill-defined ground-glass attenuation in the right middle lobe. There is bibasilar subsegmental atelectasis. There is linear atelectasis scar/scarring in the both lateral lung bases. LIVER: There is mild hepatomegaly. No gross lesion or ductal dilatation. GALLBLADDER AND BILE DUCTS: No calcified gallstones. PANCREAS: Normal in size without ductal dilatation or calcifications. SPLEEN: Normal in size. ADRENALS: Normal in size without discrete nodule. KIDNEYS AND URETERS: The right kidney is atrophic. There is mild compensatory hypertrophy of the left kidney. There is a 3 mm nonobstructing stone in the left interpolar region. No hydronephrosis. VASCULATURE: No aortic aneurysm. BOWEL: Status post gastric bypass surgery. The small bowel loops are normal in caliber. There is apparent mild mural thickening in the descending and sigmoid colon, nonspecific. APPENDIX: Not distinctly identified however no inflammatory changes in the right lower quadrant. PERITONEUM: No free fluid. No free air. LYMPH NODES: There is inflammatory stranding in the left lower quadrant mesentery and mild reactive enlargement of the left lower quadrant lymph nodes. BLADDER: Normal in appearance. REPRODUCTIVE: Unremarkable. BONES: No acute fracture. There is mild diffuse bone demineralization and multilevel degenerative changes in the spine. OTHER FINDINGS: There is a small fat containing infraumbilical ventral hernia. IMPRESSION: 1. Findings are most compatible with nonspecific left lower quadrant mesenteric panniculitis. 2. No apparent mild mural thickening in the descending and sigmoid colon is nonspecific and could be related to underdistention however nonspecific infectious/inflammatory colitis cannot be entirely excluded. Clinical follow-up is advised. 3. Tiny nonobstructing stone in the interpolar region of the left kidney.
[2016-10-04] MEDS: Sodium Chloride 0.9% 1,000 ML IV SCH ×2 (11:24→18:39)
--- NOTE | 2016-10-04 12:31 | PN ---
DATE: 10/04/2016 Seen and examined at the bedside earlier today. The patient went for a CAT scan yesterday with only oral contrast, reporting mesenteric panniculitis. The patient has not had any episodes of diarrhea except after drinking the oral contrast yesterday. Stool specimens were sent and are pending. Denies nausea, vomiting, or abdominal pain. No fever, chills, shortness of breath or chest pain. She tolerated the breakfast this morning and did not have any post- prandial diarrhea. VITAL SIGNS: Temperature is 97.5. Her blood pressure 132/89, pulse 79, respirations 20, 96 on room air. LABORATORY DATA: WBC is 7.0, H and H is 9.7 and 29.4, platelets are 266. Sodium 142, K 3.8, BUN is 12, creatinine 0.7. LFTs are within normal limits. The CT scan of abdomen and pelvis reports an ill-defined ground glass attenuation in the right middle lobe, mild hepatomegaly, no calcified gallstones , pancreas normal in size without any ductal dilatation or calcifications. There is a 3 mm nonobstructive stone in the left ____ region. No hydronephrosis. The bowel status post gastric bypass surgery, bowel loops are normal. There is apparent mild mural thickening in the descending and sigmoid colon, nonspecific. There is inflammatory stranding in the left lower quadrant mesentery and mild reactive enlargement of the left lower quadrant lymph nodes. PHYSICAL EXAMINATION: HEENT: Sclera is anicteric. NECK: Supple. CARDIAC: S1, S2. LUNGS: With decreased breath sounds, but no rales or wheeze. ABDOMEN: With bowel sounds, soft, nondistended, nontender on palpation. No rebound, guarding, or organomegaly. ASSESSMENT: This is a 51-year-old female with history of transient ischemic attack, bipolar disorder, chronic anemia, gastric bypass and recent pneumonia, came with complaints of generalized weakness, complaining of mostly postprandial diarrhea. The patient does have history of antibiotic use for the recent pneumonia, was discharged home on antibiotics. We are ruling out any Clostridium difficile colitis and status post CT scan reporting panniculitis and nonspecific thickening in the descending and sigmoid colon. PLAN: We will start patient on Flagyl 500 IV q.8. Continue her diet. Right now, she is on a heart healthy diet. The patient is requesting a regular diet. We will follow up the stool studies, which are pending, for fecal fat, H. pylori and stool for C. diff, also ruling out any celiac disease and the serology is pending as well. The patient remains on Eliquis. She is also on Protonix and Cymbalta. The patient was seen and case discussed with Dr. Sanchez. Bee DOLL cc: [id number] TT: 10/04/2016 12:30:37 Confirmation # [id number] Dictation # [id number] sn MTDD
[2016-10-04] MEDS: metroNIDAZOLE IV 500 mg/100 ml 100 ML IVPB SCH ×2 (14:28→21:51)
[2016-10-04] MEDS: Oxycodone/Acetaminophen 5/325 mg Tab PO PRN (20:37)
--- NOTE | 2016-10-04 23:08 | PN ---
DATE: 10/04/2016 The patient is in room 367, bed 2. The patient is examined in bed. Earlier today she had a CAT scan with oral contrast which showed mes enteric panniculitis. The patient has not had any further episodes of diarrhea, except after drinkin g the oral contrast. Stool specimens have been sent, which the result of which are still pending. T lakhwinder patient denies any history of nausea, vomiting, abdominal pain. Still feels weak when she tries t o walk. No fevers, no chills, shortness of breath, or chest pain. She tolerated the breakfast this morning; wants me to advance the diet. I told her no. We will stick to the diet she is on until we resolve some of the issues. PHYSICAL EXAMINATION: VITAL SIGNS: Stable. T-max is 98.4, blood pressure is 132/89, pulse is 79, respirations 20, and O2 sat is 96% on room air. The patient was feeling jittery earlier on, and she had not been put on her Klonopin, which I put her back on last night. LABORATORY DATA FROM TODAY: Reveals a white count of 7, hemoglobin and hematocrit 9.7 and 29.4, plat elet count is 266,000. Sodium is 142, K is 3.8, BUN is 12, creatinine 0.7. LFTs are normal. CAT scan of the abdomen and pelvis shows an ill-defined density in the right middle lobe, mild hepato megaly, no calcified stones. Pancreas is normal in size without dilatation or calcification. There i s a 3 cm nonobstructive kidney stone in the left renal region. No hydronephrosis. The bowels show s tatus post gastric bypass surgery. Bowel loops appeared normal. There is mild mural thickening in t he descending sigmoid colon which is nonspecific. There is inflammatory stranding in the left lower quadrant mesentery, and mild reactive enlargement of the left lower quadrant lymph nodes. Etiology o f the mesenteric panniculitis is unclear. We of inflammatory process. PHYSICAL EXAMINATION: The patient is awake, alert. Sclerae are anicteric, pupils are equally reactive to light and accommodation. Examination of the or opharynx reveals no oropharyngeal lesions. NECK: Supple. There is no adenopathy. EXAMINATION OF THE CARDIOVASCULAR SYSTEM: Reveals S1 and S2 to be normal. No gallop or murmur is he marie. EXAMINATION OF THE LUNGS: Reveals decreased breath sounds posteriorly without any rales or rhonchi. ABDOMEN: Soft, nondistended. Does not have any tenderness on palpation. No rebound, rigidity, or g uarding is noted. Higher functions are normal. No focal deficits are noted. ASSESSMENT NOTES AND PLAN: This is a 51-year-old female with history of transient ischemic attack, h istory of atrial fibrillation, bipolar disorder, chronic anemia, status post gastric bypass, recent p neumonia, comes in with generalized weakness, complaining of mostly postprandial diarrhea. The patie nt does have a history of antibiotic use in the recent pneumonia; was discharged on antibiotics for w hich C. diff has been ordered post-CAT scan. The patient has been started empirically on IV Flagyl. Continue her diet that she is on right now. Stool studies are pending for fecal fat, H. pylori, C. difficile. Also workup for celiac disease has been requested. The patient is hypothyroid and is on Synthroid, but her thyroid levels that were checked as an outpat ient before she got admitted were within normal limits. The patient has a history of anxiety state, and she is taking for that several medicines that are lis liset on the chart. Plan will be conservative and continue the current treatment, and see how things work out over the ne xt 48 hours. Routine post exam instructions have been given to the patient. I told her that I will speak to Dr. Sanchez and Bee Pickens, his nurse practitioner, to come up a with a team plan. Betzy Malave MD cc: [id number] TT: 10/04/2016 23:07:53 Confirmation # [id number] Dictation # [id number] yuli
--- NOTE | 2016-10-05 01:49 | PN ---
DATE: 10/04/2016 ADDENDUM: This is an addendum to the GI progress report dictated by Bee Pickens NP. The CT scan wa s reviewed. PHYSICA EXAMINATION: ABDOMEN: Soft. PLAN: The patient now empirically started on Flagyl for a short course. The patient may benefit fro m trial of pancreatic enzyme supplements for diarrhea if it is suggestive of malabsorption. Thank you very much for allowing us to participate. We will continue to closely follow up her care a nd suggest further management based on the clinical course. Radhika Sanchez MD cc: [id number] TT: 10/05/2016 01:48:36 Confirmation # [id number] Dictation # [id number] mn
[2016-10-05] MEDS: metroNIDAZOLE IV 500 mg/100 ml 100 ML IVPB SCH ×3 (05:29→21:03)
--- NOTE | 2016-10-05 08:10 | CON ---
DATE: 10/04/2016 HISTORY OF PRESENT ILLNESS: Shortly, the patient is a 51-year-old female with multiple med ical history. The patient was admitted on the medical floor for evaluation of generalized weakness. The patient had history of pneumonia and she was admitted to the medical floor a couple of days ago. The patient has a long history of schizoaffective versus bipolar disorder. Psych consult was trisha aburto for evaluation of medication management and because patient has history of mental illness. The tommy cason is very familiar to this video games storywriter from the previous admission on the psychiatric inpatient unit, w hich took place at [facility] on 06/2015. The patient was referred to [facility] and medications were adjusted back then. The patient also had psychotic symptoms back then and that is why she was initiated on Abilify. The patient was seen today. The patient reported that she is doing well, but from the medical standpoint she has a lot of medical issues. The zunilda mehta is quite aware of her medical issues. The patient reported that she had pneumonia and that is why she was admitted on the medical floor a couple of days ago. The patient said that she was feeling we ak and that is why she came back to the hospital and medical team feels that she needs to stay in the hospital to rule out C. diff and also some other infections. The patient reported that she is compl iant with the psychotropic medications. She denied feeling depressed. She denied thoughts of harmin g herself or others. The patient denied hearing voices, denied seeing things. The patient reported that she lives with her in her mother's house who a year and a half ago, and the patient lives with her father at the present moment. The patient reported that she is compliant with the medication, denied side effects and she is followed by [facility]. The pat ient said that she is doing fine and she does not want her medication to be adjusted. The patient re ported to have acceptable appetite and fair sleep. VITAL SIGNS: Reviewed: Temperature is 98.1, pulse is 92, blood pressure 122/86, respirations 26, ox ygen saturation is 98. MEDICATIONS: Reviewed. Tylenol. The patient also is on Eliquis. The patient is on Abilify 20 mg a t the nighttime, Lipitor, Klonopin 0.5 mg q. 6 hours as needed, Klonopin 1 mg daily scheduled. The p atkamla is on Cymbalta 20 mg twice a day, folic acid, Humulin. Also, Synthroid, Flagyl, Protonix, Lyr ica, sodium chloride, trazodone 200 mg at the nighttime and Ambien 10 mg as needed for insomnia. The patient reported that these medications are correct and reported that she is taking the right medica tions and right doses. PAST PSYCHIATRIC HISTORY: As this video games storywriter described above, the patient has history of schizoaffective disorder versus bipolar disorder with psychotic symptoms. The patient has multiple admissions in th e past. The most recent was a year ago. MENTAL STATUS EXAMINATION: The patient presented to be alert. The patient seems to gain a lot of we ight, intermittent eye contact. Speech was slow, low volume. Mood described as "I am fine." Affect was constricted, but reactive. Mood congruent. Thought process was coherent and goal directed. ought content: The patient denied visual, auditory, tactile hallucinations. Denied paranoid ideatio ns. The patient denied thoughts of harming herself or others, denied intent or plan. Insight and ju dgment are fair. Impulses are well controlled. IMPRESSION: As per history, the patient has bipolar disorder versus schizoaffective disorder. The p atkamla has multiple medical issues. Please see notes for more detailed information. PLAN: The patient has followup appointment with [facility]. The patient reques liset to be seen by manager social media because she has some questions about Medicaid and Medicare. Social w abdiel was notified. This video games storywriter confirmed all of the medications and the patient said that she is ta emil correct doses and correct medications and expressed no concerns from the psychiatric standpoint. The patient deemed not to be in danger to self or others. Please reconsult as needed. Thank you v dontae much for letting me participate in the care of your patient. Willa Bergeron MD cc: [id number] TT: 10/04/2016 19:15:59 Confirmation # [id number] Dictation # [id number] mn
[2016-10-05] MEDS: Insulin Reg-LOW-Coverage SC SCH ×4 (08:39→21:04)
[2016-10-05] MEDS: Levothyroxine 175 MCG TAB PO SCH (10:13)
[2016-10-05] MEDS: Pantoprazole 40 mg EC Tab PO SCH (10:14)
[2016-10-05] MEDS: Sodium Chloride 0.9% 1,000 ML IV SCH ×2 (10:14→20:46)
[2016-10-05] MEDS: Oxycodone/Acetaminophen 5/325 mg Tab PO PRN ×2 (11:37→20:45)
--- NOTE | 2016-10-05 12:41 | PN ---
DATE: 10/05/2016 The patient was seen at the bedside earlier today. The patient denies any nausea, vomiting, complain ts of mid abdominal pain that occurs anytime. Has not had any episodes of diarrhea. She did have a bowel movement today and it was formed. No reports of any overt GI bleed. The patient is requesting regular diet. Reports that the food is dry and difficult for her to eat since she has history of ga stric bypass. VITAL SIGNS: Temperature 98.1, blood pressure is 97/54, pulse is 60, respirations 20, 98 O2 saturati on. Celiac disease serology is pending. Stool for C. diff is negative. Urine culture is positive for co rynebacterium species. PHYSICAL EXAMINATION: HEENT: Sclera is anicteric. NECK: Supple. CARDIAC: S1, S2. LUNGS: Sounds with decreased breath sounds but good air entry. ABDOMEN: With bowel sounds. It is soft. There is some periumbilical tenderness but no rebound or g uarding. EXTREMITIES: No edema. NEUROLOGIC: Awake, alert, and oriented. ASSESSMENT: This is a 51-year-old female who came with a history of transient ischemic attack, bipol ar disorder, chronic anemia, gastric bypass, and recent pneumonia. Came with complaints of generaliz ed weakness and was complaining of post-prandial diarrhea. She does have history of antibiotic use. Her diarrhea has improved. The Clostridium difficile is negative. We sent the patient for a CAT sc an which reported nonspecific thickening in the descending and sigmoid colon and panniculitis. She a lso has history of hyperlipidemia. PLAN: The patient is requesting regular diet as she has more choices, especially since she has gastr ic bypass, she reports that the low fat diet is, the food is dry. I explained to her that she is on cholesterol medication and dyslipidemic medication and that being on a regular diet would defeat the purpose and that is why she is on a low fat diet. Request scene and lighting design lecturer to speak to the patient regardin g low fat diet but the patient's diet has been changed to a regular diet despite detailed explanation . She remains on Flagyl. Continue PPI. She is on Protonix. She is also on Eliquis and it has been previously explained to the patient at a revisit that she would need a repeat elective outpatient co lonoscopy as she had a fair preparation on her last colonoscopy in 07/2015. We will follow up the iva iac disease serology as well as the stool studies to rule out any malabsorption. She also has a cons ult pending with surgery for CT scan findings. The patient was seen and case discussed with Dr. Sanchez. Bee DOLL cc: [id number] TT: 10/05/2016 12:41:11 Confirmation # [id number] Dictation # [id number] sn
--- NOTE | 2016-10-05 15:35 | CP.PCM.CON ---
<Levon Farrell - Last Filed: 10/05/16 15:22> History of Present Illness - History of Present Illness History of Present Illness: CONSULT NOTE FOR DR. CRUZ 51F seen and examined at bedside. Patient presents to [facility] with fatigue and weakness after being discharged from hospital a couple of days ago. Surgery consulted for abdominal pain that patient states began months ago. Patient states she did not tell anyone about it until now. She states the pain is located in the lower quadrants and radiates to her back. She denies nausea and states sometimes to vomits and attributes it to her Gastric bypass surgery that she had in 1999. She has been randomly vomiting food after eating since then she said. She has lost 200lb since bypass. She denies that food makes the pain worse. She admits to some constipation but states she had an episode of diarrhea after drinking oral contrast for the CT scan. She denies fevers and chills. Currently being seen by GI. Patient has fibromyalgia. PMH: Iron deficiency anemia, hypothyroid, A-fib on eliquis, HLD, RA, Osteoporosis, schizoaffective, fibromyalgia. PSH: Gastric bypass Social: denies tobacco, alcohol, illicit drugs Allergies: IV dye, Meperidine Past Patient History - Infectious Disease Hx of Infectious Diseases: None - Tetanus Immunizations Tetanus Immunization: Unknown - Past Social History Smoking Status: Never Smoked - CARDIAC Hx Cardiac Disorders: No - PULMONARY Hx Respiratory Disorders: Yes Hx Pneumonia: Yes Hx Sleep Apnea: Yes (using c-pap at home) - NEUROLOGICAL Hx Neurological Disorder: No - HEENT Hx HEENT Problems: No - RENAL Hx Chronic Kidney Disease: Yes Hx Kidney Stones: Yes - ENDOCRINE/METABOLIC Hx Endocrine Disorders: Yes Hx Diabetes Mellitus Type 2: Yes Hx Hypothyroidism: Yes - HEMATOLOGICAL/ONCOLOGICAL Hx Blood Disorders: Yes Hx Anemia: Yes (multiple blood transfusion) - INTEGUMENTARY Hx Dermatological Problems: No - MUSCULOSKELETAL/RHEUMATOLOGICAL Hx Musculoskeletal Disorders: Yes - GASTROINTESTINAL Hx Gastrointestinal Disorders: Yes (gi bleed) - GENITOURINARY/GYNECOLOGICAL Hx Genitourinary Disorders: No - PSYCHIATRIC Hx Psychophysiologic Disorder: No Hx Substance Use: No - SURGICAL HISTORY Hx Gastric Bypass Surgery: Yes (16 years ago.) Other/Comment: Port insertion - ANESTHESIA Hx Anesthesia: Yes Hx Anesthesia Reactions: No Hx Malignant Hyperthermia: No Meds Allergies/Adverse Reactions: Allergies Allergy/AdvReac Type Severity Reaction Status Date / Time Iodinated Contrast Media - Allergy RASH Verified 10/02/16 12:19 Oral and [Iodinated Contrast Media - IV Dye] iodine Allergy RASH Verified 10/02/16 12:19 meperidine Allergy RASH Verified 10/02/16 12:19 - Medications Medications: Current Medications Acetaminophen (Tylenol 325mg Tab) 650 mg PO Q4H PRN PRN Reason: headache Last Admin: 10/03/16 20:39 Dose: 650 mg Apixaban (Eliquis) 5 mg PO BID KEITH PRN Reason: Protocol Last Admin: 10/05/16 10:13 Dose: 5 mg Aripiprazole (Abilify) 20 mg PO HS KEITH PRN Reason: Protocol Last Admin: 10/04/16 21:51 Dose: 20 mg Atorvastatin Calcium (Lipitor) 20 mg PO DIN [facility] Last Admin: 10/04/16 17:12 Dose: 20 mg Clonazepam (Klonopin) 0.5 mg PO Q6H PRN; Protocol PRN Reason: Anxiety Clonazepam (Klonopin) 1 mg PO DAILY KEITH PRN Reason: Protocol Last Admin: 10/05/16 10:13 Dose: 1 mg Duloxetine HCl (Cymbalta) 20 mg PO BID [facility] Last Admin: 10/05/16 10:14 Dose: 20 mg Folic Acid (Folic Acid) 1 mg PO DAILY [facility] Last Admin: 10/05/16 10:14 Dose: 1 mg Sodium Chloride (Sodium Chloride 0.9%) 1,000 mls @ 100 mls/hr IV .Q10H KEITH Last Admin: 10/05/16 10:14 Dose: 100 mls/hr Metronidazole (Flagyl) 100 mls @ 100 mls/hr IVPB Q8 KEITH PRN Reason: Protocol Last Admin: 10/05/16 14:30 Dose: 100 mls/hr Insulin Human Regular (Humulin R Low) 0 units SC ACHS KEITH PRN Reason: Protocol Last Admin: 10/05/16 11:51 Dose: Not Given Levothyroxine Sodium (Synthroid) 175 mcg PO ACB KEITH Last Admin: 10/05/16 10:13 Dose: 175 mcg Oxycodone/Acetaminophen (Percocet 5/325 Mg Tab) 1 tab PO Q8H PRN PRN Reason: Pain, moderate (4-7) Stop: 10/07/16 19:11 Last Admin: 10/05/16 11:37 Dose: 1 tab Pantoprazole Sodium (Protonix Ec Tab) 40 mg PO ACB [facility] Last Admin: 10/05/16 10:14 Dose: 40 mg Pregabalin (Lyrica) 50 mg PO BID KE[facility] Last Admin: 10/05/16 10:14 Dose: 50 mg Trazodone HCl (Desyrel) 200 mg PO HS [facility] Last Admin: 10/04/16 21:50 Dose: 200 mg Zolpidem Tartrate (Ambien) 10 mg PO HS PRN; Protocol PRN Reason: Insomnia Last Admin: 10/04/16 21:50 Dose: 10 mg Physical Exam - Constitutional Appears: Non-toxic, No Acute Distress Additional comments: obese - Head Exam Head Exam: ATRAUMATIC - ENT Exam ENT Exam: Mucous Membranes Moist - Respiratory Exam Respiratory Exam: Clear to Auscultation Bilateral, NORMAL BREATHING PATTERN - Cardiovascular Exam Cardiovascular Exam: REGULAR RHYTHM, +S1, +S2 - GI/Abdominal Exam GI & Abdominal Exam: Soft, Tenderness. absent: Distended, Firm, Guarding, Rebound, Rigid Additional comments: mildly tender to palpation in all four quadrants, soft, non-acute abdomen - Extremities Exam Extremities exam: Positive for: pedal edema, tenderness - Neurological Exam Neurological exam: Alert, Oriented x3 - Psychiatric Exam Psychiatric exam: Flat Affect - Skin Skin Exam: Dry, Intact, Normal Color, Warm Results - Vital Signs Recent Vital Signs: Last Vital Signs Temp 98.1 F 10/05/16 06:00 Pulse 60 10/05/16 06:00 Resp 20 10/05/16 06:00 BP 97/54 L 10/05/16 06:00 Pulse Ox 98 10/05/16 06:00 - Labs Result Diagrams: 10/04/16 06:20 10/04/16 06:20 Assessment & Plan - Assessment and Plan (Free Text) Assessment: 51F presents with abdominal pain 2/2 likely infectious/inflammatory colitis, mesenteric fat inflammation Plan: - monitor diet, pain control - anti-emetic, antibiotics - continue IV fluids - serial abdominal exams - GI recommendations/colonoscopy - no surgical intervention at this time Discussed with Dr. Nancy Farrell, PGY1 <Kaleb Cruz - Last Filed: 10/06/16 07:35> Meds - Medications Medications: Current Medications Acetaminophen (Tylenol 325mg Tab) 650 mg PO Q4H PRN PRN Reason: headache Last Admin: 10/03/16 20:39 Dose: 650 mg Apixaban (Eliquis) 5 mg PO BID KEITH PRN Reason: Protocol Last Admin: 10/05/16 17:18 Dose: 5 mg Aripiprazole (Abilify) 20 mg PO HS KEITH PRN Reason: Protocol Last Admin: 10/05/16 21:04 Dose: 20 mg Atorvastatin Calcium (Lipitor) 20 mg PO DIN [facility] Last Admin: 10/05/16 17:18 Dose: 20 mg Clonazepam (Klonopin) 0.5 mg PO Q6H PRN; Protocol PRN Reason: Anxiety Last Admin: 10/05/16 18:49 Dose: 0.5 mg Clonazepam (Klonopin) 1 mg PO DAILY KEITH PRN Reason: Protocol Last Admin: 10/05/16 10:13 Dose: 1 mg Duloxetine HCl (Cymbalta) 20 mg PO BID [facility] Last Admin: 10/05/16 17:18 Dose: 20 mg Folic Acid (Folic Acid) 1 mg PO DAILY [facility] Last Admin: 10/05/16 10:14 Dose: 1 mg Sodium Chloride (Sodium Chloride 0.9%) 1,000 mls @ 100 mls/hr IV .Q10H [facility] Last Admin: 10/06/16 01:08 Dose: 100 mls/hr Metronidazole (Flagyl) 100 mls @ 100 mls/hr IVPB Q8 [facility]ITH PRN Reason: Protocol Last Admin: 10/06/16 05:08 Dose: 100 mls/hr Insulin Human Regular (Humulin R Low) 0 units SC ACHS [facility] PRN Reason: Protocol Last Admin: 10/05/16 21:04 Dose: Not Given Levothyroxine Sodium (Synthroid) 175 mcg PO ACB [facility] Last Admin: 10/05/16 10:13 Dose: 175 mcg Oxycodone/Acetaminophen (Percocet 5/325 Mg Tab) 1 tab PO Q8H PRN PRN Reason: Pain, moderate (4-7) Stop: 10/07/16 19:11 Last Admin: 10/05/16 20:45 Dose: 1 tab Pantoprazole Sodium (Protonix Ec Tab) 40 mg PO ACB [facility] Last Admin: 10/05/16 10:14 Dose: 40 mg Pregabalin (Lyrica) 50 mg PO BID [facility] Last Admin: 10/05/16 17:18 Dose: 50 mg Trazodone HCl (Desyrel) 200 mg PO HS [facility] Last Admin: 10/05/16 21:04 Dose: 200 mg Zolpidem Tartrate (Ambien) 10 mg PO HS PRN; Protocol PRN Reason: Insomnia Last Admin: 10/05/16 21:06 Dose: 10 mg Results - Vital Signs Recent Vital Signs: Last Vital Signs Temp 98.3 F 10/05/16 16:00 Pulse 79 10/06/16 06:00 Resp 20 10/05/16 16:00 BP 117/74 10/05/16 16:00 Pulse Ox 95 10/05/16 16:00 - Labs Result Diagrams: 10/05/16 17:24 10/05/16 17:24 Labs: Laboratory Results - last 24 hr 10/05/16 17:24 WBC 6.6 RBC 3.23 L Hgb 9.9 L Hct 30.3 L MCV 93.8 MCH 30.7 MCHC 32.7 RDW 15.1 H Plt Count 266 MPV 9.9 Gran % 60.2 Lymph % (Auto) 29.9 [place] % (Auto) 7.4 H Eos % (Auto) 1.7 Baso % (Auto) 0.8 Gran # 3.97 Lymph # 2.0 [place] # 0.5 Eos # 0.1 Baso # 0.05 Sodium 138 Potassium 4.2 Chloride 106 Carbon Dioxide 26 Anion Gap 10 BUN 12 Creatinine 0.8 Est GFR ( Amer) > 60 Est GFR (Non-Af Amer) > 60 Random Glucose 79 Calcium 8.1 L Total Bilirubin 0.4 AST 20 ALT 26 Alkaline Phosphatase 77 Total Protein 6.7 Albumin 3.2 Globulin 3.5 Albumin/Globulin Ratio 0.9 L Assessment & Plan - Assessment and Plan (Free Text) Assessment: Patient was seen and examined by me. I agree with assessment and plan as per resident's note. - Date & Time Date: 10/05/16 Time: 17:50
[2016-10-05 17:33] LABS: ADD MANUAL DIFF? NO
[2016-10-05 17:39] LABS: BASO # 0.05 K/mm3 (0.0-2.0); BASO % 0.8 % (0.0-3.0); EOS # 0.1 (0.0-0.7); EOS % 1.7 % (1.5-5.0); GRAN # 3.97 (1.4-6.5); GRAN % 60.2 % (50.0-68.0); HEMATOCRIT 30.3 % (36.0-48.0); LYMPH % 29.9 % (22.0-35.0); MEAN CELL VOLUME 93.8 fL (80.0-105.0); MEAN CORPUSCULAR HEMOGLOBIN 30.7 pg (25.0-35.0); MEAN CORPUSCULAR HGB CONC 32.7 g/dl (31.0-37.0); MEAN PLATELET VOLUME 9.9 fl (7.0-11.0); MONO # 0.5 (0.1-0.6); MONO % 7.4 % (1.0-6.0); PLATELET COUNT 266 10^3/uL (120.0-450.0); RED CELL DISTRIBUTION WIDTH 15.1 % (11.5-14.5); WHITE BLOOD COUNT 6.6 10^3/ul (4.5-11.0)
[2016-10-05 17:50] LABS: ALB/GLOB RATIO 0.9 (1.1-1.8); ALKALINE PHOSPHATASE 77 U/L (38-133); ALT/SGPT 26 U/L (7-56); AST/SGOT 20 U/L (15-39); BILIRUBIN,TOTAL 0.4 mg/dL (0.2-1.3); BLOOD UREA NITROGEN 12 mg/dL (7-21); CALCIUM 8.1 mg/dL (8.4-10.5); CARBON DIOXIDE 26 mmol/L (21-33); CHLORIDE 106 mmol/L (98-107); GFR AFRICAN-AMERICAN > 60; GLUCOSE,RANDOM 79 mg/dL (70-110); POTASSIUM 4.2 mmol/L (3.6-5.0); SODIUM 138 mmol/L (132-148); TOTAL PROTEIN 6.7 g/dL (5.8-8.3)
--- NOTE | 2016-10-05 21:25 | PN ---
DATE: 10/05/2016 This is the patient's hospital visit. For Dr. Malave. SUBJECTIVE: The patient is a 51-year-old female seen lying awake in bed, reporting that her abdomina l discomfort persists, with the patient continued with IV fluids, with the patient otherwise in no ac [place] distress. The patient is now known to have mesenteric panniculitis with a positive urine culture reviewed earlier today. OBJECTIVE: PHYSICAL EXAMINATION: VITAL SIGNS: Temperature 98.3, pulse 85, respirations 20, blood pressure 117/74, pulse ox 95%. HENT: Unremarkable. NECK: Supple. HEART: Regular rate. LUNGS: Minimal decreased breath sounds. ABDOMEN: Obese, soft. Minimal tenderness to K palpation. EXTREMITIES: No edema. SKIN: Warm, dry, and clear. NEUROLOGIC: Awake and alert. The patient's labs were done. White blood cell count 6.6, hemoglobin 9.9, hematocrit of 30.3, platel et count 266,000, with a chem metabolic panel within normal limits except for calcium of 8.1. Stool for H. pylori showed none detected, with urine culture growing out Corynebacterium species greater th an 100,000 colonies. Her C. difficile testing was negative for stool. The assessment for this patient is abdominal pain, positive urinary culture, urinary tract infection, dehydration, schizoaffective disorder, history of gastric bypass, chronic diarrhea, anemia. The plan for this patient, after conversation with Dr. Malave, is to ask for a consult with Dr. Jonnathan small, infectious diseases, for her positive urine culture, ask for consult with Dr. Cruz for panniculitis, with the prognosis for this patient guarded. Will monitor clinically and with labs. Ronal Kahn MD cc: [phone] TT: 10/05/2016 21:24:34 Confirmation # [id number] Dictation # [id number] jn
--- NOTE | 2016-10-06 00:19 | PN ---
DATE: 10/05/2016 ADDENDUM: This is an addendum to gastrointestinal progress report dictated by Bee Pickens NP. The patient denies any diarrhea. Tolerating the diet. Stool for H. pylori was negative. Stool before f at still pending. The patient empirically on p.o. Flagyl. CT findings noticed. The patient may nee d a followup CT in few months' time. The patient is tolerating the diet. The patient can reconsider for elective repeat colonoscopy as last colonoscopy preparation was fair. Thank you for allowing us to participate. Radhika Sanchez MD cc: [id number] TT: 10/06/2016 00:18:16 Confirmation # [id number] Dictation # [id number] mn
[2016-10-06] MEDS: Sodium Chloride 0.9% 1,000 ML IV SCH ×3 (01:08→21:04)
[2016-10-06] MEDS: metroNIDAZOLE IV 500 mg/100 ml 100 ML IVPB SCH ×2 (05:08→13:20)
[2016-10-06 08:12] LABS: ADD MANUAL DIFF? NO
[2016-10-06] MEDS: Insulin Reg-LOW-Coverage SC SCH ×4 (08:20→22:58)
[2016-10-06 08:24] LABS: BASO # 0.03 K/mm3 (0.0-2.0); BASO % 0.3 % (0.0-3.0); EOS # 0.1 (0.0-0.7); GRAN # 8.58 (1.4-6.5); GRAN % 79.7 % (50.0-68.0); HEMATOCRIT 32.5 % (36.0-48.0); LYMPH # 1.6 (1.2-3.4); LYMPH % 15.2 % (22.0-35.0); MEAN CELL VOLUME 94.2 fL (80.0-105.0); MEAN CORPUSCULAR HEMOGLOBIN 30.1 pg (25.0-35.0); MEAN PLATELET VOLUME 9.7 fl (7.0-11.0); MONO # 0.4 (0.1-0.6); MONO % 3.8 % (1.0-6.0); PLATELET COUNT 254 10^3/uL (120.0-450.0); RED CELL DISTRIBUTION WIDTH 15.3 % (11.5-14.5); WHITE BLOOD COUNT 10.8 10^3/ul (4.5-11.0)
[2016-10-06 08:25] LABS: ALKALINE PHOSPHATASE 84 U/L (38-133); ALT/SGPT 32 U/L (7-56); AST/SGOT 21 U/L (15-39); BILIRUBIN,TOTAL 0.5 mg/dL (0.2-1.3); BLOOD UREA NITROGEN 12 mg/dL (7-21); CALCIUM 8.3 mg/dL (8.4-10.5); CARBON DIOXIDE 26 mmol/L (21-33); CHLORIDE 107 mmol/L (98-107); GFR AFRICAN-AMERICAN > 60; GLUCOSE,RANDOM 86 mg/dL (70-110); POTASSIUM 3.7 mmol/L (3.6-5.0); SODIUM 140 mmol/L (132-148); TOTAL PROTEIN 6.5 g/dL (5.8-8.3)
[2016-10-06] MEDS: Pantoprazole 40 mg EC Tab PO SCH (08:35)
[2016-10-06] MEDS: Levothyroxine 175 MCG TAB PO SCH (08:35)
[2016-10-06] MEDS: Oxycodone/Acetaminophen 5/325 mg Tab PO PRN ×2 (11:06→21:03)
--- NOTE | 2016-10-06 12:29 | PN ---
DATE: 10/06/2016 GI FOLLOWUP NOTE Seen and examined at the bedside earlier this morning. She is tolerating a regular diet. Denies any further episode of post-prandial diarrhea. She is moving her bowels, but it is formed stool. Does not report any melena or bright red blood per rectum. Although she does complain of pain from the ba ck to the left quadrant of the abdomen that occurs intermittently, no nausea or vomiting. VITAL SIGNS: Temperature is 97.5. Her blood pressure is 97/60, pulse 69. Respirations are 18. LABORATORY DATA: Today, WBC is 10.8. H and H are 10.4 and 32.5, platelets 254. Sodium 140. K is 3 .7. The BUN is 12. Creatinine is 0.9. LFTs are within normal limits. PHYSICAL EXAMINATION: HEENT: Sclerae are anicteric. NECK: Supple. CARDIAC: S1, S2. LUNGS: Lung sounds with decreased breath sounds, but no rales or wheeze. ABDOMEN: With bowel sounds, softly obese, nontender. There is some tenderness to left upper quadran t. No rebound or guarding. ASSESSMENT: This is a 51-year-old female with history of gastric bypass, complaining of post-prandia l diarrhea. She is status post recent pneumonia, was on antibiotics. Stool for Clostridium difficil e was sent that was negative. We sent the patient for a CAT scan, which was reporting panniculitis a nd nonspecific colitis. She was started on Flagyl empirically. Also was ruling out malabsorption. Stool for fat is pending, but her celiac disease was negative, and stool for Helicobacter pylori was negative as well. The patient has history of hyperlipidemia, chronic anemia, transient ischemic sebastian ck, and bipolar disorder. PLAN: Continue her diet as tolerated. She remains on Flagyl IV, Protonix 40 daily, is on Eliquis, K lonopin, Lipitor. The patient can benefit from an elective repeat colonoscopy. As previously discussed, her last colon oscopy had a fair preparation. She was seen by surgery with no scheduled surgical intervention at th is time. Can consider following up the CT scan in a few months' time. The patient was seen and case discussed with Dr. Sanchez. Also, the patient has positive UTI. Bee DOLL cc: [id number] TT: 10/06/2016 12:28:16 Confirmation # [id number] Dictation # [id number] jn
--- NOTE | 2016-10-06 14:47 | CP.PCM.PN ---
<Levon Farrell - Last Filed: 10/06/16 16:52> Subjective - Date & Time of Evaluation Date of Evaluation: 10/06/16 Time of Evaluation: 14:46 - Subjective Subjective: SURGERY NOTE FOR DR. CRUZ 51F seen and examined at bedside. Pt states pain is not worse or better and is in the same location. She admits to bowel movements, denies nausea, vomiting. she is tolerating diet. Objective - Vital Signs/Intake and Output Vital Signs (last 24 hours): Temp Pulse Resp BP Pulse Ox 97.5 F L 69 18 97/60 L 95 10/06/16 09:34 10/06/16 09:34 10/06/16 09:34 10/06/16 09:34 10/05/16 16:00 Intake and Output: 10/06/16 10/06/16 06:59 18:59 Intake Total 1960 1080 Balance 1960 1080 - Medications Medications: Current Medications Acetaminophen (Tylenol 325mg Tab) 650 mg PO Q4H PRN PRN Reason: headache Last Admin: 10/03/16 20:39 Dose: 650 mg Apixaban (Eliquis) 5 mg PO BID KEITH PRN Reason: Protocol Last Admin: 10/06/16 09:08 Dose: 5 mg Aripiprazole (Abilify) 20 mg PO HS KEITH PRN Reason: Protocol Last Admin: 10/05/16 21:04 Dose: 20 mg Atorvastatin Calcium (Lipitor) 20 mg PO DIN [facility] Last Admin: 10/05/16 17:18 Dose: 20 mg Clonazepam (Klonopin) 0.5 mg PO Q6H PRN; Protocol PRN Reason: Anxiety Last Admin: 10/05/16 18:49 Dose: 0.5 mg Clonazepam (Klonopin) 1 mg PO DAILY KEITH PRN Reason: Protocol Last Admin: 10/06/16 09:08 Dose: 1 mg Duloxetine HCl (Cymbalta) 20 mg PO BID KEITH Last Admin: 10/06/16 09:08 Dose: 20 mg Folic Acid (Folic Acid) 1 mg PO DAILY [facility] Last Admin: 10/06/16 09:08 Dose: 1 mg Sodium Chloride (Sodium Chloride 0.9%) 1,000 mls @ 100 mls/hr IV .Q10H [facility] Last Admin: 10/06/16 08:36 Dose: 100 mls/hr Metronidazole (Flagyl) 100 mls @ 100 mls/hr IVPB Q8 KEITH PRN Reason: Protocol Last Admin: 10/06/16 13:20 Dose: 100 mls/hr Insulin Human Regular (Humulin R Low) 0 units SC ACHS KEITH PRN Reason: Protocol Last Admin: 10/06/16 11:08 Dose: Not Given Levothyroxine Sodium (Synthroid) 175 mcg PO ACB [facility] Last Admin: 10/06/16 08:35 Dose: 175 mcg Oxycodone/Acetaminophen (Percocet 5/325 Mg Tab) 1 tab PO Q8H PRN PRN Reason: Pain, moderate (4-7) Stop: 10/07/16 19:11 Last Admin: 10/06/16 11:06 Dose: 1 tab Pantoprazole Sodium (Protonix Ec Tab) 40 mg PO ACB [facility] Last Admin: 10/06/16 08:35 Dose: 40 mg Pregabalin (Lyrica) 50 mg PO BID [facility] Last Admin: 10/06/16 09:08 Dose: 50 mg Trazodone HCl (Desyrel) 200 mg PO HS [facility] Last Admin: 10/05/16 21:04 Dose: 200 mg Zolpidem Tartrate (Ambien) 10 mg PO HS PRN; Protocol PRN Reason: Insomnia Last Admin: 10/05/16 21:06 Dose: 10 mg - Labs Labs: 10/06/16 08:00 10/06/16 08:00 PT 10.4 Seconds (9.9-11.8) 10/02/16 13:23 INR 0.96 (0.93-1.08) 10/02/16 13:23 APTT 24.7 Seconds (23.7-30.8) 10/02/16 13:23 - Constitutional Appears: Non-toxic, No Acute Distress - Head Exam Head Exam: ATRAUMATIC - Respiratory Exam Respiratory Exam: Clear to Ausculation Bilateral, NORMAL BREATHING PATTERN - Cardiovascular Exam Cardiovascular Exam: REGULAR RHYTHM, +S1 - GI/Abdominal Exam GI & Abdominal Exam: Soft, Tenderness. absent: Distended, Firm, Guarding, Rigid , Rebound - Neurological Exam Neurological Exam: Alert, Awake - Skin Skin Exam: Dry, Intact, Normal Color, Warm Assessment and Plan - Assessment and Plan (Free Text) Assessment: 51F presents with abdominal pain 2/2 likely possible infectious/inflammatory colitis, mesenteric fat inflammation as per CT scan report Plan: - monitor diet, pain control, anti-emetic - serial abdominal exams - GI following - no surgical intervention at this time Discussed with Dr. Nancy Farrell, PGY1 <Kaleb Cruz - Last Filed: 01/12/17 00:05> Objective - Vital Signs/Intake and Output Vital Signs (last 24 hours): Temp Pulse Resp BP Pulse Ox 97.9 F 73 18 123/85 94 L 10/07/16 08:45 10/07/16 08:45 10/07/16 08:45 10/06/16 16:00 10/07/16 08:45 - Labs Labs: 10/07/16 07:00 10/07/16 07:00 PT 10.4 Seconds (9.9-11.8) 10/02/16 13:23 INR 0.96 (0.93-1.08) 10/02/16 13:23 APTT 24.7 Seconds (23.7-30.8) 10/02/16 13:23 Assessment and Plan - Assessment and Plan (Free Text) Plan: Patient was seen and examined by me. I agree with assessment and plan as per resident's note.
--- NOTE | 2016-10-06 15:58 | CON ---
DATE: 10/06/2016 The patient is in bed. The patient was seen earlier in room 367, bed 2. CHIEF COMPLAINT: Weakness times several days. HISTORY OF PRESENT ILLNESS: A 51-year-old female with a history of kidney injury in the past, right, healthcare-associated pneumonia, obesity with a BMI of 37, hypothyroidism, bipolar, schizoaffective disorder, anemia, recent hospitalization, who was admitted with dehydration, anemia on 10/04. The pat ient had a positive urine culture for corynebacterium and infectious disease consultation requested. REVIEW OF SYSTEMS: Reveals the patient does have dysuria and frequency. No fevers, no chills, altho ugh she is having generalized weakness and aches and pains. She is complaining of dysuria, occasiona l frequency. PAST MEDICAL HISTORY: Significant for the kidney injury, obesity with body mass index of 37, hypothy roidism, bipolar, schizoaffective disorder, anemia. PAST SURGICAL HISTORY: Significant for gastric bypass surgery. ALLERGIES: THE PATIENT IS ALLERGIC TO IODINATED CONTRAST MEDIA, ORAL AND IODINE AND MEPERIDINE. MEDICATIONS AT HOME: Reveals the patient to be on trazodone, statin, Cymbalta, Lyrica, Synthroid. PHYSICAL EXAMINATION: GENERAL: The patient is in bed. VITAL SIGNS: Temperature of 97, blood pressure is 100/60, respiratory rate of 16. HEENT: Unremarkable. NECK: Supple. LUNGS: Have decreased breath sounds. HEART: Normal S1, S2. ABDOMEN: Soft, nontender. LABORATORY EXAMINATION: Reveals a white count of 10,000, hemoglobin of 10, platelets of 254. Coagul ation is noted. Chemistries reveals the BUN of 12, creatinine of 0.9. MICROBIOLOGY: Reveals the corynebacterium species in the urine culture. The blood cultures are nega tive. The antigen and toxin for C. diff are both negative. note is reviewed. He states the patient is 51 years old, presents with abdominal pain, inf lammatory infectious colitis, mesenteric fat inflammation. Bee Pickens' note is also reviewed. ASSESSMENT AND PLAN: A 51-year-old with a history of kidney injury, right healthcare-associated pneu monia, obesity with a body mass index of 37, hypothyroidism, bipolar, schizoaffective disorder, anemi a. Presenting with a corynebacterium species urinary tract infection, although the patient does have occasional genitourinary symptoms. I have ordered a urinalysis and it was not collected. We will r equest the urinalysis again. Currently, the patient is on Flagyl started by GI for diarrhea. The Cl ostridium difficile antigen and toxin are both negative. We will recommend to discontinue the IV Fla gyl, which may be contributing towards the nausea that she is having. We will check on the repeat ur ine culture and waiting for urinalysis before making further recommendations. We will follow closely with you. Alexander Bustamante MD cc: [id number] TT: 10/06/2016 15:58:20 Confirmation # [id number] Dictation # [id number]
[2016-10-06 18:02] LABS: URINE APPEARANCE CLEAR (CLEAR); URINE BILIRUBIN NEGATIVE (NEGATIVE); URINE BLOOD MODERATE (NEGATIVE); URINE COLOR YELLOW (YELLOW); URINE GLUCOSE (UA) NEGATIVE (NEGATIVE); URINE KETONE NEGATIVE (NEGATIVE); URINE LEUKOCYTE ESTERASE NEGATIVE Leu/uL (NEGATIVE); URINE PROTEIN NEGATIVE mg/dL (<30 mg/dL); URINE UROBILINOGEN 0.2 E.U./dL (<1 E.U./dL)
[2016-10-06 18:06] LABS: URINE BACTERIA NEG (NEG); URINE EPITHELIAL CELLS 0 - 2 /hpf (0-5); URINE WBC 0 - 2 /hpf (0-6)
[2016-10-06 20:26] VITALS: BP 123/85
--- NOTE | 2016-10-06 21:20 | PN ---
DATE: 10/06/2016 This is the patient's hospital visit on the medical floor. For Dr. Malave. SUBJECTIVE: The patient is a 51-year-old female admitted for abdominal pain, known to have panniculi tis with surgical evaluation with Dr. Cruz appreciated. The patient is still with discomfort to the midabdomen. Otherwise, resting comfortably, in no acute distress. She also had a urine cultu re that was positive for corynebacterium with treatment as per Dr. Bustamante. She is also on antibi otics of Flagyl and this will be addressed as per Dr. Bustamante and Dr. Moore PHYSICAL EXAMINATION: VITAL SIGNS: Temperature 98, pulse 94, respirations 20, blood pressure 123/85, pulse ox 95%. HEENT: Unremarkable. NECK: Supple. ABDOMEN: Obese, soft. Minimal tenderness to gentle palpation. EXTREMITIES: No edema. SKIN: Warm, dry and clear. NEUROLOGIC: Awake and alert. LABORATORY DATA: The patient's labs were done. White blood cell count 10.8, hemoglobin 10.4, hemato crit 32.5, platelet count of 254,000 with a chem metabolic panel within normal limits. The patient's C. difficile antigen testing for stool was reported as negative. ASSESSMENT: Abdominal pain, panniculitis, repeat urinary culture pending, schizoaffective disorder, dehydration, history of gastric bypass, chronic diarrhea, anemia. PLAN: To continue present regimen with Flagyl discontinued as per Dr. Bustamante. We will monitor c linically and with labs. Ronal Kahn MD cc: [id number] TT: 10/06/2016 21:20:20 Confirmation # [id number] Dictation # [id number] mn
[2016-10-07 07:47] LABS: ADD MANUAL DIFF? NO
[2016-10-07] MEDS: Levothyroxine 175 MCG TAB PO SCH (07:50)
[2016-10-07] MEDS: Pantoprazole 40 mg EC Tab PO SCH (07:50)
[2016-10-07 07:52] LABS: BASO # 0.02 K/mm3 (0.0-2.0); BASO % 0.2 % (0.0-3.0); EOS # 0.2 (0.0-0.7); EOS % 1.8 % (1.5-5.0); GRAN % 69.2 % (50.0-68.0); LYMPH % 21.6 % (22.0-35.0); MEAN CELL VOLUME 93.6 fL (80.0-105.0); MEAN CORPUSCULAR HEMOGLOBIN 30.8 pg (25.0-35.0); MEAN CORPUSCULAR HGB CONC 32.9 g/dl (31.0-37.0); MEAN PLATELET VOLUME 9.6 fl (7.0-11.0); MONO # 0.7 (0.1-0.6); MONO % 7.2 % (1.0-6.0); PLATELET COUNT 216 10^3/uL (120.0-450.0); RED CELL DISTRIBUTION WIDTH 15.5 % (11.5-14.5); WHITE BLOOD COUNT 9.1 10^3/ul (4.5-11.0)
[2016-10-07] MEDS: Sodium Chloride 0.9% 1,000 ML IV SCH (07:59)
[2016-10-07 08:05] LABS: ALB/GLOB RATIO 0.9 (1.1-1.8); ALKALINE PHOSPHATASE 66 U/L (38-133); ALT/SGPT 32 U/L (7-56); AST/SGOT 20 U/L (15-39); BILIRUBIN,TOTAL 0.3 mg/dL (0.2-1.3); BLOOD UREA NITROGEN 13 mg/dL (7-21); CALCIUM 7.7 mg/dL (8.4-10.5); CARBON DIOXIDE 27 mmol/L (21-33); CHLORIDE 108 mmol/L (98-107); GFR AFRICAN-AMERICAN > 60; GLUCOSE,RANDOM 78 mg/dL (70-110); POTASSIUM 3.7 mmol/L (3.6-5.0); SODIUM 139 mmol/L (132-148); TOTAL PROTEIN 5.7 g/dL (5.8-8.3)
[2016-10-07] MEDS: Insulin Reg-LOW-Coverage SC SCH ×2 (08:05→12:10)
--- NOTE | 2016-10-07 08:13 | CP.PCM.PN ---
<Alexander Carey - Last Filed: 10/07/16 08:13> Subjective - Date & Time of Evaluation Date of Evaluation: 10/07/16 Time of Evaluation: 08:14 - Subjective Subjective: Dr. Alexander Carey PGY1 Patient seen and examined at bedside this AM; denies any fevers/chills, CONNOLLY, SOB , abdominal pain, N/V/D, dysuria/freq/urg/ or lower extremity pain/swelling. Objective - Vital Signs/Intake and Output Vital Signs (last 24 hours): Temp Pulse Resp BP Pulse Ox 98 F 71 20 123/85 95 10/06/16 16:00 10/07/16 06:00 10/06/16 16:00 10/06/16 16:00 10/06/16 16:00 Intake and Output: 10/07/16 10/07/16 06:59 18:59 Intake Total 620 Output Total 1 Balance 619 - Medications Medications: Current Medications Acetaminophen (Tylenol 325mg Tab) 650 mg PO Q4H PRN PRN Reason: headache Last Admin: 10/03/16 20:39 Dose: 650 mg Apixaban (Eliquis) 5 mg PO BID KEITH PRN Reason: Protocol Last Admin: 10/06/16 17:13 Dose: 5 mg Aripiprazole (Abilify) 20 mg PO HS KEITH PRN Reason: Protocol Last Admin: 10/06/16 21:03 Dose: 20 mg Atorvastatin Calcium (Lipitor) 20 mg PO DIN REPLACED BY [facility] Last Admin: 10/06/16 17:14 Dose: 20 mg Clonazepam (Klonopin) 0.5 mg PO Q6H PRN; Protocol PRN Reason: Anxiety Last Admin: 10/07/16 04:26 Dose: 0.5 mg Clonazepam (Klonopin) 1 mg PO DAILY KEITH PRN Reason: Protocol Last Admin: 10/06/16 09:08 Dose: 1 mg Duloxetine HCl (Cymbalta) 20 mg PO BID KEITH Last Admin: 10/06/16 17:14 Dose: 20 mg Folic Acid (Folic Acid) 1 mg PO DAILY KEITH Last Admin: 10/06/16 09:08 Dose: 1 mg Sodium Chloride (Sodium Chloride 0.9%) 1,000 mls @ 100 mls/hr IV .Q10H KEITH Last Admin: 10/07/16 07:59 Dose: 100 mls/hr Insulin Human Regular (Humulin R Low) 0 units SC ACHS KEITH PRN Reason: Protocol Last Admin: 10/07/16 08:05 Dose: Not Given Levothyroxine Sodium (Synthroid) 175 mcg PO ACB KEITH Last Admin: 10/07/16 07:50 Dose: 175 mcg Oxycodone/Acetaminophen (Percocet 5/325 Mg Tab) 1 tab PO Q8H PRN PRN Reason: Pain, moderate (4-7) Stop: 10/07/16 19:11 Last Admin: 10/06/16 21:03 Dose: 1 tab Pantoprazole Sodium (Protonix Ec Tab) 40 mg PO ACB KEITH Last Admin: 10/07/16 07:50 Dose: 40 mg Pregabalin (Lyrica) 50 mg PO BID KEITH Last Admin: 10/06/16 17:14 Dose: 50 mg Trazodone HCl (Desyrel) 200 mg PO HS KEITH Last Admin: 10/06/16 21:04 Dose: 200 mg Zolpidem Tartrate (Ambien) 10 mg PO HS PRN; Protocol PRN Reason: Insomnia Last Admin: 10/06/16 21:03 Dose: 10 mg - Labs Labs: 10/07/16 07:00 10/07/16 07:00 PT 10.4 Seconds (9.9-11.8) 10/02/16 13:23 INR 0.96 (0.93-1.08) 10/02/16 13:23 APTT 24.7 Seconds (23.7-30.8) 10/02/16 13:23 - Head Exam Additional comments: Head Exam: ATRAUMATIC Appears: Non-toxic, No Acute Distress - Respiratory Exam Respiratory Exam: Clear to Ausculation Bilateral, NORMAL BREATHING PATTERN - Cardiovascular Exam Cardiovascular Exam: REGULAR RHYTHM, +S1 - GI/Abdominal Exam GI & Abdominal Exam: Soft, Tenderness. absent: Distended, Firm, Guarding, Rigid , Rebound - Neurological Exam Neurological Exam: Alert, Awake - Skin Skin Exam: Dry, Intact, Normal Color, Warm Assessment and Plan - Assessment and Plan (Free Text) Assessment: 51F presents with abdominal pain 2/2 likely possible infectious/inflammatory colitis, mesenteric fat inflammation as per CT scan report Plan: - monitor diet, pain control, anti-emetic; patient has been tolerating - serial abdominal exams; unchanged - GI following; will appreciate their recommendations - no surgical intervention at this time There is no surgical intervention needed at this time. Please feel free to consult PRN as needed. Thank you for the opportunity to take care of this interesting patient. Discussed with Dr. Nancy Carey, PGY1 <Kaleb Cruz - Last Filed: 01/12/17 00:07> Objective - Vital Signs/Intake and Output Vital Signs (last 24 hours): Temp Pulse Resp BP Pulse Ox 97.9 F 73 18 123/85 94 L 10/07/16 08:45 10/07/16 08:45 10/07/16 08:45 10/06/16 16:00 10/07/16 08:45 - Labs Labs: 10/07/16 07:00 10/07/16 07:00 PT 10.4 Seconds (9.9-11.8) 10/02/16 13:23 INR 0.96 (0.93-1.08) 10/02/16 13:23 APTT 24.7 Seconds (23.7-30.8) 10/02/16 13:23 Assessment and Plan - Assessment and Plan (Free Text) Plan: Patient was seen and examined by me. I agree with assessment and plan as per resident's note.
[2016-10-07 08:46] VITALS: PULSE 73; RESP 18; TEMP 97.9; O2SAT 94
--- NOTE | 2016-10-07 10:56 | PN ---
DATE: 10/07/2016 The patient is in bed, in no acute distress, nontoxic. The patient was seen earlier in room 367, bed 2. PHYSICAL EXAMINATION: VITAL SIGNS: Temperature is 97, blood pressure is 120/70, respiratory rate of 16. HEENT: Unremarkable. NECK: Supple. LUNGS: Have decreased breath sounds. HEART: Normal S1, S2. ABDOMEN: Soft, nontender. LABORATORY DATA: Reveals a white count of 9.1, hemoglobin of 9, platelets of 216. Chemistries revea l the BUN of 13, creatinine of 0.9. The urinalysis is noted. ASSESSMENT AND PLAN: This is a 51-year-old with a history of kidney injury and a right healthcare-as sociated pneumonia; obesity, body mass index of 37; hypothyroidism, bipolar schizoaffective disorder, anemia, presenting with a corynebacterium species in the urine culture, and at this point her genito urinary symptoms have resolved and the urinalysis is unremarkable. Repeat urine culture is pending. Clostridium difficile antigen and toxin are negative. Currently, the patient is off of antibiotics. Dr. Alexander Carey's progress note is reviewed. Dr. Ronal Kahn's note is reviewed. Dr. Tawnya riley's note is reviewed. Alexander Bustamante MD cc: [id number] TT: 10/07/2016 10:55:21 Confirmation # [id number] Dictation # [id number] mn
--- NOTE | 2016-10-07 16:03 | PN ---
DATE: 10/07/2016 Seen and examined at bedside earlier this morning. She reports that the abdominal pain has improved. She is having formed bowel movements. No reports of diarrhea or complaints of any overt GI bleed. VITAL SIGNS: Temperature is 97.9, pulse 73, respirations 18, 94% room air. LABORATORIES: WBC is 9.1, hemoglobin is 9.2, hematocrit 28.0, platelets of 216. Sodium is 139, K is 3.7, BUN is 13, creatinine 0.9. LFTs are within normal limits. PHYSICAL EXAMINATION: HEENT: Sclera is anicteric. NECK: Supple. CARDIAC: S1, S2. LUNG SOUNDS: With decreased breath sounds, but good aeration. ABDOMEN: With bowel sounds, softly obese, and nontender. No rebound or guarding. ASSESSMENT: A 51-year-old female with history of gastric bypass, initially complaining of postprandial diarrhea, which has now resolved. We were ruling out the possibility of malabsorption. So far, her celiac disease was negative and her stool Helicobacter pylori was negative, although the fecal fat is pending. She did have a history of recent pneumonia with antibiotic use. Considering also to rule out Clostridium difficile. The first stool specimen was negative. She had also underwent a CAT scan and the findings reported were panniculitis and a nonspecific colitis, in which she was started on empiric Flagyl, which has now been discontinued as per recommendation of ID. She did have urinary tract infection. Other comorbidities is obesity, chronic anemia, transient ischemic attack, bipolar disorder. PLAN: Continue gastrointestinal prophylaxis. She is on Protonix 40 daily, on Eliquis, Lipitor. She is going to be discharged home today. Discussed with her elective outpatient colonoscopy in view of history of fair preparation on her last colonoscopy. She was also evaluated by surgery for any intervention needed for panniculitis. No surgical intervention recommended at this time. Can consider following up her CAT scan. Her repeat culture is currently pending. The patient was seen and case discussed with Dr. Sanchez. Bee Domingoes SHARMILA cc: [id number] TT: 10/07/2016 16:02:08 Confirmation # [id number] Dictation # [id number] en CAROL
--- NOTE | 2016-10-08 15:37 | DS ---
For Dr. Malave. SUBJECTIVE: The patient is a 51-year-old female admitted for abdominal pain with panniculitis and keyes rgical evaluation with Dr. Cruz done which his surgical PGY-1 student, after conversation with Dr. Cruz, recommending no surgical intervention at this time. Antibiotics were discontinued by Dr. Bustamante with the patient feeling much better and wanted to go home. She reports no further abdominal pain. The patient also had a urine culture which was repeated by Dr. Bustamante, repeated as negative, no treatment indicated at this time and therefore, her antibiotics were discontinued an d she will be discharged home on her present medical home regimen. She is otherwise in no acute dist ress. OBJECTIVE: PHYSICAL EXAMINATION: VITAL SIGNS: Temperature 97.9, pulse 73, respirations 18, blood pressure 123/85, pulse ox of 94%. HEENT: Unremarkable. NECK: Supple. HEART: Regular rate. LUNGS: Clear. ABDOMEN: Soft, nontender. EXTREMITIES: No edema. SKIN: Warm, dry and clear. NEUROLOGIC: Awake, alert, and oriented x 3. LABORATORY DATA: The patient's labs were done. White blood cell count of 9.1, hemoglobin 9.2, hemat ocrit 28.0, platelet count 216,000. Chem panel showing a calcium of 7.7, total protein 5.7, albumin of 2.7, otherwise normal chem metabolic panel. H. pylori testing from 05/06 was negative. Endomysial IgA antibody testing was not performed, as an IgA was normal. Celiac disease interpretation was also negative. H. pylori for stool was also negati ve. ASSESSMENT: Abdominal panniculitis, status post gastric bypass, diarrhea, obesity, history of transi ent ischemic attack, bipolar disorder, dehydration. PLAN: The patient is to be discharged home on her home medications, which include Synthroid, Lyrica, Cymbalta, Abilify, pravastatin, trazodone, vitamin D, Protonix, Eliquis, Ambien, folic acid, Klonopi n p.r.n., Percocet p.r.n. She is to follow with Dr. Malave in approximately 1 weeks' time or aron virgen with the patient to follow dietary restrictions as per Dr. Bustamante with further testing includin g colonoscopy as per Dr. Sanchez. Ronal Kahn MD cc: [phone] TT: 10/08/2016 15:37:01 jeremias
== END 2016-10-07 15:33 | disposition home or self-care (01) ==
LOC: ED 12:00 → ERH 16:06 → 3RNO 16:56 → INTOOBSV 10-04 16:38 → OBSVTOIN 10-04 16:38
PROVIDERS: ADMIT Family Medicine; ATTEND Family Medicine
DX: K65.4 Sclerosing mesenteritis (principal); E86.0 Dehydration; E83.42 Hypomagnesemia; N39.0 Urinary tract infection, site not specified; I48.91 Unspecified atrial fibrillation; F25.9 Schizoaffective disorder, unspecified; D50.9 Iron deficiency anemia, unspecified; E03.9 Hypothyroidism, unspecified; E66.9 Obesity, unspecified; E78.5 Hyperlipidemia, unspecified; M81.0 Age-related osteoporosis without current pathological fracture; M79.7 Fibromyalgia; F31.9 Bipolar disorder, unspecified; K52.9 Noninfective gastroenteritis and colitis, unspecified; Z86.73 Personal history of transient ischemic attack (TIA), and cerebral infarction without residual deficits; Z98.84 Bariatric surgery status; Z68.37 Body mass index [BMI] 37.0-37.9, adult; Z87.01 Personal history of pneumonia (recurrent); Z79.02 Long term (current) use of antithrombotics/antiplatelets
CPT/HCPCS: 36415; 71010; 74176; 80053; 81001; 82550; 82705; 82784; 82803; 82948; 83516; 83615; 83880; 84443; 84484; 85025; 85610; 85730; 87040; 87086; 87324; 87338; 93005; 96360; 96361; 99285; G0378; J7040

== ENCOUNTER 2016-11-17 21:47 | Inpatient (IN) | payer MEDICAID ==
[2016-11-17 21:48] VITALS: BMI 37.9
[2016-11-17] MEDS ORDERED: Vancomycin 1gm in NS 250ml 1 GM/250 ML BAG IVPB STA (22:14)
--- NOTE | 2016-11-17 22:33 | ED PDOC ---
Arrival/HPI - General Time Seen by Provider: 11/17/16 22:12 Historian: Patient - History of Present Illness Narrative History of Present Illness (Text): 11/17/16 22:31 Julieth Szymanski is a 51 year old female, with a history of anemia, bipolar disorder, schizoaffective disorder, arthritis, TIA and a port, who was sent to the emergency department by PMD for admission to the hospital for gram positive blood culture. Patient was evaluated by PMD for intermittent fever and chills. Outpatient blood work done at that time revealed gram positive blood culture. Currently denies any complaints. Symptom Onset: Gradual Severity Level: Mild Activities at Onset: Light Past Medical History - Provider Review Nursing Documentation Reviewed: Yes - Infectious Disease Hx of Infectious Diseases: None - Tetanus Immunization Tetanus Immunization: Unknown - Cardiac Hx Cardiac Disorders: No - Pulmonary Hx Respiratory Disorders: Yes Hx Pneumonia: Yes Hx Sleep Apnea: Yes (using c-pap at home) - Neurological Hx Neurological Disorder: No - HEENT Hx HEENT Disorder: No - Renal Hx Renal Disorder: Yes Hx Kidney Stones: Yes - Endocrine/Metabolic Hx Endocrine Disorders: Yes Hx Diabetes Mellitus Type 2: Yes Hx Hypothyroidism: Yes - Hematological/Oncological Hx Blood Disorders: Yes Hx Anemia: Yes (multiple blood transfusion) - Integumentary Hx Dermatological Disorder: No - Musculoskeletal/Rheumatological Hx Musculoskeletal Disorders: Yes - Gastrointestinal Hx Gastrointestinal Disorders: Yes (gi bleed) - Genitourinary/Gynecological Hx Genitourinary Disorders: No - Psychiatric Hx Psychophysiologic Disorder: No Hx Substance Use: No - Surgical History Hx Gastric Bypass Surgery: Yes (16 years ago.) Other/Comment: Port insertion - Anesthesia Hx Anesthesia: Yes Hx Anesthesia Reactions: No Hx Malignant Hyperthermia: No - Suicidal Assessment Feels Threatened In Home Enviroment: No Family/Social History - Physician Review Nursing Documentation Reviewed: Yes Family/Social History: No Known Family HX Smoking Status: Never Smoked Hx Alcohol Use: No Hx Substance Use: No Hx Substance Use Treatment: No Allergies/Home Meds Allergies/Adverse Reactions: Allergies Iodinated Contrast Media - Oral and [Iodinated Contrast Media - IV Dye] Allergy (Verified 10/02/16 12:19) RASH iodine Allergy (Verified 10/02/16 12:19) RASH meperidine Allergy (Verified 10/02/16 12:19) RASH Home Medications: Home Meds Medication Instructions Recorded Confirmed Zolpidem Tartrate [Ambien] 10 mg PO HS 09/12/14 10/02/16 ARIPiprazole [Abilify] 20 mg PO HS 10/16/14 10/02/16 Pantoprazole [Protonix EC Tab] 40 mg PO DAILY 12/12/14 10/02/16 Pregabalin [Lyrica] 50 mg PO BID 04/07/15 10/02/16 Ergocalciferol (Vitamin D2) 50,000 unit PO QWK 12/28/15 10/02/16 [Vitamin D2] Folic Acid 1 mg PO DAILY 12/28/15 10/02/16 Levothyroxine [Synthroid] 175 mcg PO DAILY 09/14/16 10/02/16 Apixaban [Eliquis] 5 mg PO BID 10/02/16 10/02/16 Atorvastatin [Lipitor] 20 mg PO DAILY 10/02/16 10/02/16 DULoxetine [Cymbalta] 20 mg PO BID 10/02/16 10/02/16 Glucagon [Glucagen Diagnostic Kit] 1 mg IM PRN PRN 10/02/16 10/02/16 clonazePAM [Klonopin] 1 mg PO Q8 PRN 10/02/16 10/04/16 oxyCODONE/Acetaminophen [Percocet 1 tab PO Q8 PRN 10/02/16 10/04/16 5/325 mg Tab] traZODone [Desyrel] 200 mg PO HS 10/02/16 10/02/16 Physical Exam - Physical Exam Narrative Physical Exam (Text): - Review of Systems Constitutional: Normal. absent: Fatigue, Weight Change, Fevers Eyes: Normal ENT: Normal Respiratory: Normal absent: SOB, Cough, Sputum Cardiovascular: Normal absent: Chest pain, Palpitations, Syncope Gastrointestinal: Normal absent: Abdominal pain, Diarrhea, Nausea, Vomiting Genitourinary: Normal. absent: Dysuria, Frequency, Hematuria Musculoskeletal: Normal. absent: Arthralgias, Back Pain, Neck Pain Skin: Normal Neurological: Normal absent: Focal Weakness Endocrine: Normal Hemo/Lymphatic: Normal Psychiatric: Normal - Physical exam Patient appears age appropriate, speaking full sentences without difficulty - Systems Exam Head: Present: Atraumatic, Normocephalic Pupils: Present: PERRL Extraocular Muscles: Present: EOMI Conjunctiva: Present: Normal Mouth: Present: Moist Mucous Membranes Neck: Present: Normal Range of Motion. No: MIDLINE TENDERNESS, Paraspinal Tenderness Respiratory/Chest: Present: Clear to Auscultation, Good Air Exchange. No: Respiratory Distress, Accessory Muscle Use, Tachypnic Cardiovascular: Present: Regular Rate and Rhythm, Normal S1, S2, Peripheral Pulses Present. No: Murmurs Abdomen: Present: Normal Bowel Sounds, No: Tenderness, Peritoneal Signs, Rebound, Guarding, Distention Back: Present: Normal Inspection. No: Midline Tenderness, Paraspinal Tenderness Upper Extremity: Present: Normal Inspection. No: Cyanosis, Edema Lower Extremity: 1+ edema. No asymmetry, no tenderness to palpation. Neurovascular intact. Neurological: Present: GCS=15, Speech Normal, cranial nerves II through XII fully intact with no cerebellar abnormality, neuro-sensory fully intact. No focal neurological deficits. Skin: Present: Warm, Dry, Normal Color. No: Rashes Lymphatic: Present: OX3, NI, NC Psychiatric: Present: Alert, Oriented x 3, Normal Insight, Normal Concentration Vital Signs Reviewed: Yes Vital Signs Temp Pulse Resp BP Pulse Ox 11/17/16 22:08 98.4 F 85 18 143/84 96 Temperature: Afebrile Blood Pressure: Normal Pulse: Regular Respiratory Rate: Normal Appearance: Positive for: Well-Appearing, Non-Toxic, Comfortable Pain Distress: None Mental Status: Positive for: Alert and Oriented X 3 Medical Decision Making ED Course and Treatment: 11/17/16 22:37 Impression: A 51 year old female who presents to the emergency department for admission to the hospital for positive blood cultures. Plan: -- EKG -- Labs -- Chest X-ray -- Vanco -- Blood Culture -- Urine culture -- Reassess and disposition Progress Notes: 11/17/16 22:[address] Ronal Kahn in detail. Asked to admit patient to his service with on consult. Pt in no distress, aware of and agrees with plan 11/17/16 23:32 EKG interpreted by me: NSR @ [address] segment elevation. RsR' pattern in aVL, leads I, and III. - Lab Interpretations I have reviewed the lab results: Yes - RAD Interpretation Radiology Orders: 11/17/16 22:14 CHEST PORTABLE [RAD] Stat - EKG Interpretation Interpreted by ED Physician: Yes Type: 12 lead EKG - Medication Orders Current Medication Orders: Discontinued Medications Vancomycin HCl (Vancomycin 1gm) 1 gm in 250 mls @ 133.333 mls/hr IVPB STAT STA PRN Reason: Protocol Stop: 11/18/16 00:06 - Scribe Statement The provider has reviewed the documentation as recorded by the Malathi Darnell Provider Attestation: All medical record entries made by the Malathi were at my direction and personally dictated by me. I have reviewed the chart and agree that the record accurately reflects my personal performance of the history, physical exam, medical decision making, and the department course for this patient. I have also personally directed, reviewed, and agree with the discharge instructions and disposition. Disposition/Present on Arrival - Present on Arrival Any Indicators Present on Arrival: No History of DVT/PE: No History of Uncontrolled Diabetes: No Urinary Catheter: No History Surgical Site Infection Following: Bariatric Surgery, None - Disposition Have Diagnosis and Disposition been Completed?: Yes Diagnosis: Positive blood culture Disposition: HOSPITALIZED Disposition Time: 22:35 Patient Plan: Admission Condition: FAIR
[2016-11-18 00:05] LABS: ADD MANUAL DIFF? NO
[2016-11-18 00:12] LABS: BASO # 0.04 K/mm3 (0.0-2.0); BASO % 0.5 % (0.0-3.0); EOS # 0.2 (0.0-0.7); GRAN # 4.48 (1.4-6.5); GRAN % 57.9 % (50.0-68.0); HEMATOCRIT 32.7 % (36.0-48.0); LYMPH # 2.4 (1.2-3.4); LYMPH % 30.7 % (22.0-35.0); MEAN CELL VOLUME 92.4 fL (80.0-105.0); MEAN CORPUSCULAR HEMOGLOBIN 30.5 pg (25.0-35.0); MEAN PLATELET VOLUME 9.5 fl (7.0-11.0); MONO # 0.6 (0.1-0.6); MONO % 7.9 % (1.0-6.0); PLATELET COUNT 264 10^3/uL (120.0-450.0); RED CELL DISTRIBUTION WIDTH 14.5 % (11.5-14.5); WHITE BLOOD COUNT 7.7 10^3/ul (4.5-11.0)
[2016-11-18 00:23] LABS: INR 1.01 (0.93-1.08); PARTIAL THROMBOPLASTIN TIME 27.8 Seconds (23.7-30.8)
[2016-11-18 00:25] LABS: ALB/GLOB RATIO 1.2 (1.1-1.8); ALKALINE PHOSPHATASE 101 U/L (38-133); ALT/SGPT 22 U/L (7-56); AST/SGOT 21 U/L (15-39); BILIRUBIN,TOTAL 0.4 mg/dL (0.2-1.3); BLOOD UREA NITROGEN 15 mg/dL (7-21); CARBON DIOXIDE 27 mmol/L (21-33); CHLORIDE 106 mmol/L (98-107); GFR AFRICAN-AMERICAN > 60; GLUCOSE,RANDOM 80 mg/dL (70-110); POTASSIUM 3.9 mmol/L (3.6-5.0); SODIUM 138 mmol/L (132-148); TOTAL PROTEIN 7.1 g/dL (5.8-8.3)
[2016-11-18] MEDS ORDERED: Dextrose 50% SYRINGE Inj (50 ml) IVP STA (01:42)
[2016-11-18 09:20] LABS: ADD MANUAL DIFF? NO
[2016-11-18 09:27] LABS: BASO # 0.04 K/mm3 (0.0-2.0); BASO % 0.6 % (0.0-3.0); EOS # 0.2 (0.0-0.7); EOS % 3.2 % (1.5-5.0); GRAN # 4.34 (1.4-6.5); GRAN % 60.6 % (50.0-68.0); HEMATOCRIT 34.6 % (36.0-48.0); LYMPH % 27.9 % (22.0-35.0); MEAN CELL VOLUME 91.8 fL (80.0-105.0); MEAN CORPUSCULAR HEMOGLOBIN 30.2 pg (25.0-35.0); MEAN CORPUSCULAR HGB CONC 32.9 g/dl (31.0-37.0); MEAN PLATELET VOLUME 9.7 fl (7.0-11.0); MONO # 0.6 (0.1-0.6); MONO % 7.7 % (1.0-6.0); PLATELET COUNT 278 10^3/uL (120.0-450.0); RED CELL DISTRIBUTION WIDTH 14.2 % (11.5-14.5); WHITE BLOOD COUNT 7.2 10^3/ul (4.5-11.0)
--- NOTE | 2016-11-18 09:36 | RAD ---
HISTORY: admission COMPARISON: 10/02/2016 FINDINGS: LUNGS: No active pulmonary disease. PLEURA: No significant pleural effusion identified, no pneumothorax apparent. CARDIOVASCULAR: Normal. OSSEOUS STRUCTURES: No significant abnormalities. VISUALIZED UPPER ABDOMEN: Normal. OTHER FINDINGS: Right-sided Port-A-Cath IMPRESSION: No active disease.
[2016-11-18 09:42] LABS: ALB/GLOB RATIO 1.2 (1.1-1.8); ALKALINE PHOSPHATASE 94 U/L (38-133); ALT/SGPT 24 U/L (7-56); AST/SGOT 21 U/L (15-39); BILIRUBIN,TOTAL 0.5 mg/dL (0.2-1.3); BLOOD UREA NITROGEN 13 mg/dL (7-21); CARBON DIOXIDE 27 mmol/L (21-33); CHLORIDE 105 mmol/L (95-110); GFR AFRICAN-AMERICAN > 60; GLUCOSE,RANDOM 106 mg/dL (70-110); POTASSIUM 3.7 mmol/L (3.6-5.0); SODIUM 139 mmol/L (132-148)
[2016-11-18] MEDS: Levothyroxine 150 MCG TAB PO SCH (14:02)
[2016-11-18] MEDS: Vancomycin 1.5 GM in Sodium Chloride 0.9% 500 ML IVPB SCH (14:02)
--- NOTE | 2016-11-18 15:20 | CARD ---
APPROVED REPORT EKG Measurement Heart [id number] <Conclusion> Normal sinus rhythm Nonspecific intraventricular conduction delay Borderline ECG
--- NOTE | 2016-11-18 15:45 | HP ---
This is the patient's admission history and physical. For Dr. Malave. CHIEF COMPLAINT: Positive Gram stain and blood cultures, MRSA. HISTORY OF PRESENT ILLNESS: The patient is a 51-year-old female admitted via the Emergency Room afte r phone calls received from [facility] reporting that the patient's specimen sent including blood cultures and Gram stain were significant. Gram stain reportedly was positive for aerobic Gram stain positive cocci in clusters, in pairs, with now a blood culture reported as positive MRSA. The patient herself is describing generalized aches, but nothing specific and is in no acute distress. However, she was advised to come in for evaluation of the positive Gram stain and blood cultures. On e is referred to previous records as she was recently hospitalized for sepsis. She does have a port. ALLERGIES: INCLUDE IODINE, MEPERIDINE, IODINATED CONTRAST MEDIA. MEDICATIONS: Include Synthroid, Lyrica, Cymbalta, Abilify, Lipitor, trazodone, vitamin D, Protonix, Eliquis, Ambien, folic acid, Klonopin, Percocet. 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 She was also recently hospitalized for pneumonia, al tered mental status changes with acute renal failure at one point, considering rhabdomyolysis after a TIA. FAMILY HISTORY AND SOCIAL HISTORY: Nonsmoker, non-ethanolic. is at the bedside. Otherwise, noncontributory. REVIEW OF SYSTEMS: Essentially negative to questioning except as above. OBJECTIVE AND PHYSICAL EXAMINATION: VITAL SIGNS: Temperature 98.6, pulse 89, respirations 20, blood pressure 120/76, pulse ox 100%. HEENT: Unremarkable. NECK: Supple. HEART: Regular rate. LUNGS: Clear. ABDOMEN: Obese, soft, nontender. EXTREMITIES: No edema. SKIN: Warm, dry and clear. NEUROLOGIC: Awake, alert. LABORATORIES: White blood cell count 7.2, hemoglobin 11.4, hematocrit 34.6, platelet count 278,000 w ith a chem metabolic panel completely within normal range. INR of 1.0. ASSESSMENT: Positive Gram stain and blood cultures, positive port, history of abdominal panniculitis , recently hospitalized for this with IV antibiotics, status post gastric bypass surgery, history of transient ischemic attack, bipolar disorder, schizoaffective disorder. The patient recently was keven liset for pneumonia, history of renal failure with rhabdomyolysis, hypothyroidism. After conversation with Dr. Malave, we will admit to the medical floor with IV antibiotics begun in the Emergency Room after blood cultures were done. The hard copy of her labs, positive cultures from the outside lab, will be addended to the chart. We will refill her present medical regimen and ask for a consult with Dr. Treviño and Dr. Bustamante, infectious disease, and Dr. Bergeron, psychiatry. Prognosis for this patient is guarded with consideration for port removal should it be indicated. Ronal Kahn MD cc: [phone] TT: 11/18/2016 14:41:53 en
--- NOTE | 2016-11-18 16:34 | CP.PCM.CON ---
History of Present Illness - History of Present Illness History of Present Illness: 51 year old female with PMH of rheumatoid arthritis, history of transient ischemic attack, obstructive sleep apnea. obesity with BMI 38, hypothyroidism, bipolar disorder, shcizoaffective disorder, S/P gastric bypass surgery was sent in by her PMD because of positive blood cx sent from the clinic because of the patient's intermittent fevers and chills for the past 4-5 days. The cultures grew MRSA and we are awaiting the hard copy of the result to also see the sensitivities. Aside from the fever/chills, the patient feels ill and has generalized weakness. The patient denies headache or dizziness, no chest pain, no SOB, no cough or colds, no dysphagia, no abdominal pain, no diarrhea, no dysuria. Infectious Diseases consult is requested to further evaluate and manage. Review of Systems - Review of Systems All systems: reviewed and no additional remarkable complaints except (as per HPI ) Past Patient History - Infectious Disease Hx of Infectious Diseases: None - Tetanus Immunizations Tetanus Immunization: Unknown - Past Social History Smoking Status: Never Smoked - CARDIAC Hx Cardiac Disorders: No Hx Hypercholesterolemia: Yes - PULMONARY Hx Pneumonia: Yes Hx Sleep Apnea: Yes - NEUROLOGICAL Hx Neurological Disorder: No - HEENT Hx HEENT Problems: No - RENAL Hx Kidney Stones: Yes - ENDOCRINE/METABOLIC Hx Endocrine Disorders: Yes Hx Diabetes Mellitus Type 1: No Hx Diabetes Mellitus Type 2: Yes Hx Hypothyroidism: Yes - HEMATOLOGICAL/ONCOLOGICAL Hx Blood Disorders: Yes Hx Anemia: Yes - INTEGUMENTARY Hx Dermatological Problems: No - MUSCULOSKELETAL/RHEUMATOLOGICAL Hx Back Pain: No Hx Falls: No - GASTROINTESTINAL Hx Gastrointestinal Disorders: Yes (gi bleed) - GENITOURINARY/GYNECOLOGICAL Hx Genitourinary Disorders: No - PSYCHIATRIC Hx Anxiety: Yes Hx Bipolar Disorder: Yes Hx Depression: Yes - SURGICAL HISTORY Hx Gastric Bypass Surgery: Yes - ANESTHESIA Hx Anesthesia: Yes Hx Anesthesia Reactions: No Hx Malignant Hyperthermia: No Meds Allergies/Adverse Reactions: Allergies Allergy/AdvReac Type Severity Reaction Status Date / Time Iodinated Contrast Media - Allergy RASH Verified 10/02/16 12:19 Oral and [Iodinated Contrast Media - IV Dye] iodine Allergy RASH Verified 10/02/16 12:19 meperidine Allergy RASH Verified 10/02/16 12:19 Physical Exam - Constitutional Appears: Non-toxic, No Acute Distress - Head Exam Head Exam: NORMAL INSPECTION - ENT Exam ENT Exam: Mucous Membranes Moist - Neck Exam Neck exam: Negative for: Lymphadenopathy, Meningismus - Respiratory Exam Respiratory Exam: Decreased Breath Sounds Additional comments: right anterior chest wall port site clean, intact, non-tender - Cardiovascular Exam Cardiovascular Exam: +S1, +S2 - GI/Abdominal Exam GI & Abdominal Exam: Soft. absent: Tenderness Results - Vital Signs Recent Vital Signs: Last Vital Signs Temp 98.2 F 11/18/16 04:17 Pulse 74 11/18/16 04:17 Resp 18 11/18/16 04:17 BP 109/54 L 11/18/16 04:17 Pulse Ox 96 11/18/16 02:10 - Labs Result Diagrams: 11/18/16 09:00 11/18/16 09:00 Labs: Laboratory Results - last 24 hr 11/17/16 11/17/16 11/17/16 23:58 23:58 23:58 WBC 7.7 RBC 3.54 Hgb 10.8 L Hct 32.7 L MCV 92.4 MCH 30.5 MCHC 33.0 RDW 14.5 Plt Count 264 MPV 9.5 Gran % 57.9 Lymph % (Auto) 30.7 [place] % (Auto) 7.9 H Eos % (Auto) 3.0 Baso % (Auto) 0.5 Gran # 4.48 Lymph # 2.4 [place] # 0.6 Eos # 0.2 Baso # 0.04 PT 10.9 INR 1.01 APTT 27.8 Sodium 138 Potassium 3.9 Chloride 106 Carbon Dioxide 27 Anion Gap 9 L BUN 15 Creatinine 0.9 Est GFR ( Amer) > 60 Est GFR (Non-Af Amer) > 60 POC Glucose (mg/dL) Random Glucose 80 Calcium 9.0 Total Bilirubin 0.4 AST 21 ALT 22 Alkaline Phosphatase 101 Total Protein 7.1 Albumin 3.8 Globulin 3.3 Albumin/Globulin Ratio 1.2 11/18/16 11/18/16 01:20 02:33 WBC RBC Hgb Hct MCV MCH MCHC RDW Plt Count MPV Gran % Lymph % (Auto) [place] % (Auto) Eos % (Auto) Baso % (Auto) Gran # Lymph # [place] # Eos # Baso # PT INR APTT Sodium Potassium Chloride Carbon Dioxide Anion Gap BUN Creatinine Est GFR ( Amer) Est GFR (Non-Af Amer) POC Glucose (mg/dL) 39 L 124 H Random Glucose Calcium Total Bilirubin AST ALT Alkaline Phosphatase Total Protein Albumin Globulin Albumin/Globulin Ratio Assessment & Plan - Assessment and Plan (Free Text) Plan: Assessment sepsis due to MRSA bacteremia, consider port-a-cath as the source history of HCAP rheumatoid arthritis history of transient ischemic attack obstructive sleep apnea Morbid obesity with BMI 40 hypothyroidism bipolar disorder shcizoaffective disorder, S/P gastric bypass surgery Plan started patient on Vancomycin; will follow up the hard copy of the outpatient blood cx result and the blood cx have been repeated here with one set coming from the port - if this is verified that it is MRSA, would recommend removal of the port Follow up doppler U/S right extremity to rule out DVT and check 2D echo Will follow clinically
--- NOTE | 2016-11-18 17:43 | CARD ---
APPROVED REPORT EXAM: Two-dimensional and M-mode echocardiogram with Doppler and color Doppler. INDICATION Infection:Rule out subacute bacterial endocarditis 2D DIMENSIONS Left Atrium (2D)3.3 (1.6-4.0cm)IVSd1.0 (0.7-1.1cm) LVDd5.0 (3.9-5.9cm)PWd1.1 (0.7-1.1cm) LVDs3.1 (2.5-4.0cm)FS (%) 39.1 % LVEF (%)69.2 (>50%) M-Mode DIMENSIONS Aortic Root2.80 (2.2-3.7cm)Aortic Cusp Exc.2.10 (1.5-2.0cm) Aortic Valve AoV Peak Byjfrljk486.0cm/Richy Peak GR.13mmHg Mitral Valve MV E Qebitbbw14.9cm/sMV A Pidmnkag806.0cm/sE/A ratio0.8 TDI E/Lateral E'0.0E/Medial E'0.0 Tricuspid Valve TR Peak Whrmgqyr251me/sRAP [id number] Peak Gr.16mmHg [id number] LEFT VENTRICLE The left ventricle is normal size. There is normal left ventricular wall thickness. The left ventricular function is normal.EF-55-60% There is normal LV segmental wall motion. Transmitral Doppler flow pattern is Grade III-reversible restrictive diastolic dysfunction. No left ventricle thrombus noted on this study. There is no ventricular septal defect visualized. There is no left ventricular aneurysm. RIGHT VENTRICLE The right ventricle is normal size. There is normal right ventricular wall thickness. The right ventricular systolic function is normal. ATRIA The left atrium is borderline dilated. The right atrium size is normal. The interatrial septum is intact with no evidence for an atrial septal defect. AORTIC VALVE The aortic valve is thickened but opens well. There is trace aortic regurgitation. There is no aortic valvular stenosis. There is no aortic valvular vegetation. MITRAL VALVE The mitral valve is thickened but opens well. Mitral regurgitation is trace to mild. There is no mitral valve stenosis. There is no evidence of mitral valve prolapse. TRICUSPID VALVE The tricuspid valve leaflets are thickened , but open well. There is trace to mild tricuspid regurgitation.RVSP-26 mmof Hg. There is no tricuspid valve stenosis. There is no tricuspid valve prolapse or vegetation. PULMONIC VALVE The pulmonary valve is normal in structure. There is trace pulmonic valvular regurgitation. There is no pulmonic valvular stenosis. GREAT VESSELS The aortic root is normal in size. The ascending aorta is normal in size. The pulmonary artery is normal. The IVC was not visualized. PERICARDIAL EFFUSION There is no pleural effusion. There is no pericardial effusion. <Conclusion> The left ventricle is normal size. There is normal left ventricular wall thickness. The left ventricular function is normal.EF-55-60% There is trace aortic regurgitation. Mitral regurgitation is trace to mild. There is trace to mild tricuspid regurgitation.RVSP-26 mmof Hg. There is trace pulmonic valvular regurgitation. No vegetation or thrombus noted.
[2016-11-18] MEDS: Oxycodone/Acetaminophen 5/325 mg Tab PO PRN (20:58)
[2016-11-19] MEDS: Vancomycin 1.5 GM in Sodium Chloride 0.9% 500 ML IVPB SCH ×3 (01:34→14:49)
[2016-11-19] MEDS: Oxycodone/Acetaminophen 5/325 mg Tab PO PRN (05:32)
[2016-11-19] MEDS: Pantoprazole 40 mg EC Tab PO SCH (05:33)
[2016-11-19 06:42] LABS: ADD MANUAL DIFF? NO
[2016-11-19 06:55] LABS: ALB/GLOB RATIO 1.1 (1.1-1.8); ALKALINE PHOSPHATASE 87 U/L (38-133); ALT/SGPT 24 U/L (7-56); AST/SGOT 17 U/L (15-39); BILIRUBIN,TOTAL 0.4 mg/dL (0.2-1.3); BLOOD UREA NITROGEN 12 mg/dL (7-21); CALCIUM 8.7 mg/dL (8.4-10.5); CARBON DIOXIDE 29 mmol/L (21-33); CHLORIDE 104 mmol/L (98-107); GFR AFRICAN-AMERICAN > 60; GLUCOSE,RANDOM 78 mg/dL (70-110); POTASSIUM 3.6 mmol/L (3.6-5.0); SODIUM 139 mmol/L (132-148); TOTAL PROTEIN 6.3 g/dL (5.8-8.3)
[2016-11-19 07:30] LABS: BASO # 0.04 K/mm3 (0.0-2.0); BASO % 0.6 % (0.0-3.0); EOS # 0.2 (0.0-0.7); EOS % 3.2 % (1.5-5.0); GRAN # 3.11 (1.4-6.5); GRAN % 50.3 % (50.0-68.0); HEMATOCRIT 32.5 % (36.0-48.0); LYMPH # 2.3 (1.2-3.4); LYMPH % 36.7 % (22.0-35.0); MEAN CELL VOLUME 92.1 fL (80.0-105.0); MEAN CORPUSCULAR HEMOGLOBIN 29.7 pg (25.0-35.0); MEAN CORPUSCULAR HGB CONC 32.3 g/dl (31.0-37.0); MEAN PLATELET VOLUME 9.9 fl (7.0-11.0); MONO # 0.6 (0.1-0.6); MONO % 9.2 % (1.0-6.0); PLATELET COUNT 261 10^3/uL (120.0-450.0); RED CELL DISTRIBUTION WIDTH 14.5 % (11.5-14.5); WHITE BLOOD COUNT 6.2 10^3/ul (4.5-11.0)
[2016-11-19] MEDS ORDERED: Pantoprazole 20 mg EC Tab PO SCH (07:30)
--- NOTE | 2016-11-19 09:56 | CP.PCM.PCO ---
Addendum Addendum: I met with patient at bedside. Patient is coherent, alert and well-oriented to date, year, location and circumstances. She is well aware of the reason for her medical admission and she is hopeful about her medical issues improving and denies SI or HI. Patient is coherent with goal-directed responses. At this time patient defers on any psychiatric management, preferring to focus on her medical recovery. Patient is aware that she can change his mind at any time and psychiatry can and will reconsult with her As there is no indication of dangerousness, psychiatry will sign off at this time.
[2016-11-19] MEDS: Levothyroxine 150 MCG TAB PO SCH (10:02)
--- NOTE | 2016-11-19 13:59 | PN ---
DATE: 11/19/2016 The patient seen earlier on third floor. The patient is in bed in no acute distress, nontoxic. PHYSICAL EXAMINATION: VITAL SIGNS: Temperature is 98, blood pressure is 103/40, respiratory rate of 16. HEENT: Unremarkable. LABORATORY DATA: Reveals a white count of 6.2, hemoglobin of 10, platelets of 261. BUN of 12, creat inine 0.8, procalcitonin 0.05. Microbiology reveals the blood cultures are negative. ASSESSMENT AND PLAN: This is a 51-year-old with sepsis with methicillin-resistant Staphylococcus aur eus bacteremia with a Port-A-Cath, awaiting for the identification and sensitivity of the methicillin -resistant Staphylococcus aureus. Currently on vancomycin. Recommend a DOC. The blood cultures her e are negative. The patient had a transthoracic echo yesterday which was read by delon Martin ce of endocarditis. Will follow with you. Alexander Bustamante MD cc: [id number] TT: 11/19/2016 13:58:32 Confirmation # [id number] Dictation # [id number] jeremias
--- NOTE | 2016-11-19 14:42 | US ---
PROCEDURE: Right upper extremity venous US CLINICAL HISTORY: Arm pain and swelling Evaluate for deep venous thrombosis. PHYSICIAN(S): Ricky Arellano M.D FINDINGS: The visualized rightinternal jugular vein is sonographically normal and compressible. No evidence of obstruction or thrombus is seen. The visualized segments of the right subclavian vein are patent with normal waveforms. No sonographic evidence of obstruction or thrombosis is seen. The visualized deep venous system of the proximal right upper extremity is sonographically normal and compressible. IMPRESSION: 1. No sonographic evidence for deep venous thrombosis in the visualized segments of the right upper extremity.
--- NOTE | 2016-11-19 15:00 | PN ---
DATE: 11/19/2016 This is patient's hospital visit on the medical floor in isolation. For Dr. Malave. SUBJECTIVE: The patient is a 51-year-old female admitted via the Emergency Room for positive Gram st ain and positive blood cultures showing MRSA for which she is now being treated as per Dr. Bustamante . She is known to have a port. She also suffers from gastric bypass surgery, bipolar disorder, schi zoaffective disorder, recently treated for pneumonia and recent multiple admissions, possibly related to the recurrent infections. PHYSICAL EXAMINATION: VITAL SIGNS: Temperature 97.8, pulse 64, respirations 18, blood pressure 103/47, pulse ox 97%. HEENT: Unremarkable. NECK: Supple. HEART: Regular rate. LUNGS: Clear. ABDOMEN: Obese, soft, and nontender. EXTREMITIES: No edema. SKIN: Warm, dry and clear. NEUROLOGIC: Awake, alert, and oriented x 3. LABORATORY DATA: The patient's labs were done. White blood cell count of 6.2, hemoglobin 10.5, magnolia tocrit 32.5, platelet count of 261,000. A chem metabolic panel completely within normal limits. Pro calcitonin less than 0.05. Otherwise, normal chem metabolic panel. ASSESSMENT: Positive Gram stain, positive blood cultures, rule out bacteremia, methicillin-resistant Staphylococcus aureus positive testing, history of port placement, history of abdominal panniculitis , recently hospitalized for IV antibiotics, status post gastric bypass surgery, history of transient ischemic attack, schizophrenic disorder, bipolar disorder, history of treatment for pneumonia, rhabdo myolysis, hypothyroidism. PLAN: After conversation with Dr. Malave and Dr. Bustamante is to continue present medical regimen. We will advance her diet to regular diet as her request. We will also do a transesophageal echocar diogram as per Dr. Bustamante's recommendations with antibiotics to continue as per Dr. Treviño and Dr. Bustamante. Prognosis for this patient is guarded. We will monitor clinically and with labs. Ronal Kahn MD cc: [phone] TT: 11/19/2016 15:00:10 Confirmation # [id number] Dictation # [id number] rn
[2016-11-19 20:48] LABS: URINE BILIRUBIN NEGATIVE (NEGATIVE); URINE BLOOD MODERATE (NEGATIVE); URINE GLUCOSE (UA) NEGATIVE (NEGATIVE); URINE KETONE NEGATIVE (NEGATIVE); URINE LEUKOCYTE ESTERASE SMALL Leu/uL (NEGATIVE); URINE PROTEIN NEGATIVE mg/dL (<30 mg/dL); URINE UROBILINOGEN 0.2 E.U./dL (<1 E.U./dL)
[2016-11-19 20:51] LABS: URINE APPEARANCE SLIGHT-CLOUDY (CLEAR); URINE COLOR AMBER (YELLOW)
[2016-11-19 20:58] LABS: URINE AMORPHOUS SEDIMENT FEW; URINE BACTERIA MANY (NEG); URINE RBC 20 - 25 /hpf (0-2)
[2016-11-20] MEDS: Vancomycin 1.5 GM in Sodium Chloride 0.9% 500 ML IVPB SCH ×2 (02:27→13:35)
[2016-11-20] MEDS: Pantoprazole 40 mg EC Tab PO SCH (05:44)
[2016-11-20 06:43] LABS: ADD MANUAL DIFF? NO
[2016-11-20 06:47] LABS: BASO # 0.04 K/mm3 (0.0-2.0); BASO % 0.6 % (0.0-3.0); EOS # 0.3 (0.0-0.7); EOS % 4.2 % (1.5-5.0); GRAN # 3.21 (1.4-6.5); GRAN % 50.1 % (50.0-68.0); HEMATOCRIT 32.2 % (36.0-48.0); LYMPH # 2.3 (1.2-3.4); LYMPH % 36.2 % (22.0-35.0); MEAN CELL VOLUME 92.3 fL (80.0-105.0); MEAN CORPUSCULAR HEMOGLOBIN 30.4 pg (25.0-35.0); MEAN CORPUSCULAR HGB CONC 32.9 g/dl (31.0-37.0); MEAN PLATELET VOLUME 9.5 fl (7.0-11.0); MONO # 0.6 (0.1-0.6); MONO % 8.9 % (1.0-6.0); PLATELET COUNT 250 10^3/uL (120.0-450.0); RED CELL DISTRIBUTION WIDTH 14.5 % (11.5-14.5); WHITE BLOOD COUNT 6.4 10^3/ul (4.5-11.0)
[2016-11-20 07:04] LABS: ALB/GLOB RATIO 1.1 (1.1-1.8); ALKALINE PHOSPHATASE 76 U/L (38-133); ALT/SGPT 29 U/L (7-56); AST/SGOT 24 U/L (15-39); BILIRUBIN,TOTAL 0.2 mg/dL (0.2-1.3); BLOOD UREA NITROGEN 14 mg/dL (7-21); CALCIUM 8.3 mg/dL (8.4-10.5); CARBON DIOXIDE 30 mmol/L (21-33); CHLORIDE 105 mmol/L (95-110); GFR AFRICAN-AMERICAN > 60; GLUCOSE,RANDOM 76 mg/dL (70-110); POTASSIUM 3.7 mmol/L (3.6-5.0); SODIUM 139 mmol/L (132-148); TOTAL PROTEIN 6.3 g/dL (5.8-8.3)
[2016-11-20] MEDS: Levothyroxine 150 MCG TAB PO SCH (09:32)
--- NOTE | 2016-11-20 11:14 | PN ---
DATE: 11/20/2016 The patient is in bed in no acute distress. PHYSICAL EXAMINATION: VITAL SIGNS: Temperature is 97. Blood pressure is 101/40, respiratory rate of 16. HEENT: Unremarkable. NECK: Supple. LUNGS: Have decreased breath sounds. HEART: Normal S1, S2. ABDOMEN: Soft, nontender. LABORATORY EXAMINATION: Reveals a white count of 6.4, hemoglobin of 10. Chemistries reveal the BUN of 14, creatinine of 0.8. Procalcitonin is less than 0.05. Urinalysis is noted. Blood cultures are no growth. Urine culture is ____ multiple species. ASSESSMENT AND PLAN: A 51-year-old female with sepsis with methicillin-resistant Staphylococcus zoey us bacteremia and a Port-A-Cath, awaiting the sensitivity of the methicillin-resistant Staphylococcus aureus, currently on vancomycin. Because of the Port-A-Cath, must rule out Port-A-Cath tip involvem ent. Will need a transesophageal echocardiogram, and the patient had an ultrasound of the extremity, which is negative for any thrombus. Case discussed with Dr. Ronal Kahn, and on vancomycin 1.5 grams q. 12. We will also order a sed rate and a C-reactive protein, and a vancomycin trough level. The patient had been complaining of back pain. Should have an MRI of the spine if possible. If not possible because of the Port-A-Cath, should have a CT of the spine to rule out spine involvement from the bacteremia. Review the medications. We will order a vancomycin trough level prior to the fourt h dose. Alexander Bustamante MD cc: 350 TT: 11/20/2016 11:13:19 Confirmation # [id number] Dictation # [id number] jn
--- NOTE | 2016-11-20 16:00 | PN ---
DATE: 11/20/2016 This is the patient's hospital visit on the medical floor. For Dr. Malave. SUBJECTIVE: The patient is a 51-year-old female admitted with methicillin-resistant Staph aureus mc teremia and Gram stain being positive with the patient recently being treated for pneumonia, possibly related to recurrent infections. High fevers. She is otherwise resting comfortably, in no acute distress, with antibiotics to continue as per Dr. Marguerite kimble. We will also consider having her port removed as per Dr. Ricky Arellano with consult placed for his evaluation of the patient. OBJECTIVE: VITAL SIGNS: Temperature 97.9, pulse 68, respirations 17, blood pressure 101/45, pulse ox 96%. HEENT: Unremarkable. NECK: Supple. HEART: Regular rate. LUNGS: Clear. ABDOMEN: Obese, soft, and nontender. EXTREMITIES: No edema. SKIN: Warm, dry and clear. NEUROLOGIC: Awake, alert, and oriented x 3. LABORATORY DATA: The patient's labs were done. White blood cell count of 6.4, hemoglobin 10.6, magnolia tocrit 32.2, platelet count of 250,000, with a chem metabolic panel completely within normal range wi th a calcium of 8.3. Her blood cultures showed no growth after 48 hours. Urine culture less than 10 ,000 colonies, probable contamination. However, her hard copy testing on the chart showed gram-posit yang stain for MRSA along with positive blood cultures positive for MRSA. The patient did have an ech ocardiogram done 2 days prior with the report showing no vegetation or thrombus noted. She had a Dop pler of her extremity, and the right side showing no evidence of DVT in the visualized segments of th e right upper extremity. ASSESSMENT: For this patient is that of sepsis with methicillin-resistant Staphylococcus aureus bact eremia with Port-A-Cath; sensitivities pending. History of abdominal panniculitis, hospitalized rece ntly for pneumonia, history of gastric bypass surgery, history of transient ischemic attack, schizoph renic disorder, bipolar disorder, rhabdomyolysis, hypothyroidism, obesity. PLAN: For this patient after conversation with Dr. Bustamante and Dr. Malave is to have evaluation with Dr. Ricky Arellano regarding port removal if indicated as per his recommendation, with transesophag eal echo to be done along with further testing by Dr. Bustamante to include sed rate, C-reactive prot ein and vancomycin levels. We will monitor clinically and with labs. Ronal Kahn MD cc: 411 TT: 11/20/2016 15:59:32 Confirmation # [id number] Dictation # [id number] mn
[2016-11-20] MEDS: Oxycodone/Acetaminophen 5/325 mg Tab PO PRN (22:02)
[2016-11-21] MEDS: Vancomycin 1.5 GM in Sodium Chloride 0.9% 500 ML IVPB SCH (02:10)
[2016-11-21] MEDS: Pantoprazole 40 mg EC Tab PO SCH (06:00)
[2016-11-21] MEDS: Levothyroxine 150 MCG TAB PO SCH (08:49)
--- NOTE | 2016-11-21 13:14 | PN ---
DATE: 11/21/2016 The patient is in bed, in no acute distress, nontoxic. PHYSICAL EXAMINATION: VITAL SIGNS: Temperature is 98. Blood pressure is 125/60, respiratory rate of 18. HEENT: Unremarkable. NECK: Supple. LUNGS: Have decreased breath sounds. HEART: Normal S1, S2. ABDOMEN: Soft, nontender. LABORATORY DATA: Reveals a white count of 6.4, hemoglobin of 10, platelets of 250. Chemistries reve al the BUN of 14, creatinine of 0.8. C-reactive protein is noted to be elevated at 4.47 and a sed ra te is reported to be elevated at 38. Vanco trough level as of this morning was 35 and the vancomycin dose was held. Dr. Ronal Kahn's note is reviewed. ASSESSMENT AND PLAN: A 51-year-old female with sepsis with methicillin-resistant Staphylococcus zoey us bacteremia with the presence of a Port-A-Cath. Will need a transesophageal echocardiogram to rule out infected Port-A-Cath. Currently on 1.5 grams q.12 of vancomycin which was held because of eleva liset vancomycin trough level. Will hold the vancomycin; order a random level in the a.m. Check on t he creatinine and readjust the dose accordingly. Awaiting for DOC results to determine duration of a ntibiotics currently. The repeat blood cultures here are negative. We are also awaiting for the sen sitivity of the MRSA done at an outside lab. I have requested the sensitivity be faxed to the chart; still pending. Alexander Bustamante MD cc: 350 TT: 11/21/2016 13:14:00 Confirmation # [id number] Dictation # [id number] mn
--- NOTE | 2016-11-21 16:48 | PN ---
DATE: 11/21/2016 This is the patient's hospital visit on the medical floor. For Dr. Malave. SUBJECTIVE: The patient is a 51-year-old female admitted for positive Gram stain and blood cultures for MRSA with the patient known to have a port with recent hospitalizations for infectious processes. She is otherwise resting comfortably at this point in no acute distress, with the patient to have a followup with Dr. Ricky Arellano with possible port removal as indicated. The patient did have a psych eval with Dr. Bergeron recommended by Dr. Malave but the patient refused any evaluation at this point; possibly as an outpatient in the future. She is otherwise resting comfortably, in no acute di stress with IV antibiotics continuing. OBJECTIVE: PHYSICAL EXAMINATION: VITAL SIGNS: Temperature 97.7, pulse 68, respirations 17, blood pressure 125/68, pulse ox 96%. HEENT: Unremarkable. NECK: Supple. HEART: Regular rate. LUNGS: Clear. ABDOMEN: Obese, soft, and nontender. EXTREMITIES: No edema. SKIN: Warm, dry and clear. NEUROLOGIC: Awake, alert, and oriented x 3. LABORATORY DATA: The patient's labs were done yesterday with a sed rate noted to be 38, with her C-r eactive protein at 4.4. Otherwise, normal chem metabolic panel. This patient does have a transesophageal echocardiogram ordered; it was not done yet, however. ASSESSMENT: For this patient is that of methicillin-resistant Staphylococcus aureus bacteremia with Port-A-Cath sensitivities pending, history of panniculitis, recently hospitalized for pneumonia, hist ory of gastric bypass surgery, transient ischemic attack, schizophrenic disorder, bipolar disorder, h istory of rhabdomyolysis, hypothyroidism and obesity. PLAN: For this patient is to continue present medical regimen. We await a consult with Dr. Ricky walls regarding possible port removal. We also await her transesophageal echocardiogram which was orde red 2 days prior as this is the holiday weekend. Will monitor her labs and clinically. Prognosis fo r this patient is guarded. Ronal Kahn MD cc: 411 TT: 11/21/2016 16:47:54 Confirmation # [id number] Dictation # [id number] mn
[2016-11-22] MEDS: Pantoprazole 40 mg EC Tab PO SCH (05:36)
[2016-11-22 07:14] LABS: ADD MANUAL DIFF? NO
[2016-11-22 07:33] LABS: BASO # 0.05 K/mm3 (0.0-2.0); BASO % 0.7 % (0.0-3.0); EOS # 0.3 (0.0-0.7); EOS % 4.9 % (1.5-5.0); GRAN # 3.27 (1.4-6.5); GRAN % 48.4 % (50.0-68.0); HEMATOCRIT 33.6 % (36.0-48.0); LYMPH # 2.6 (1.2-3.4); MEAN CELL VOLUME 92.1 fL (80.0-105.0); MEAN CORPUSCULAR HEMOGLOBIN 29.6 pg (25.0-35.0); MEAN CORPUSCULAR HGB CONC 32.1 g/dl (31.0-37.0); MEAN PLATELET VOLUME 9.8 fl (7.0-11.0); MONO # 0.5 (0.1-0.6); PLATELET COUNT 280 10^3/uL (120.0-450.0); RED CELL DISTRIBUTION WIDTH 14.2 % (11.5-14.5); WHITE BLOOD COUNT 6.8 10^3/ul (4.5-11.0)
[2016-11-22 07:48] LABS: ALB/GLOB RATIO 1.1 (1.1-1.8); ALKALINE PHOSPHATASE 82 U/L (38-133); ALT/SGPT 22 U/L (7-56); AST/SGOT 20 U/L (15-39); BILIRUBIN,TOTAL 0.3 mg/dL (0.2-1.3); BLOOD UREA NITROGEN 14 mg/dL (7-21); CALCIUM 8.7 mg/dL (8.4-10.5); CARBON DIOXIDE 31 mmol/L (21-33); CHLORIDE 103 mmol/L (98-107); GFR AFRICAN-AMERICAN > 60; GLUCOSE,RANDOM 76 mg/dL (70-110); POTASSIUM 4.1 mmol/L (3.6-5.0); SODIUM 140 mmol/L (132-148); TOTAL PROTEIN 6.6 g/dL (5.8-8.3)
[2016-11-22] MEDS: Levothyroxine 150 MCG TAB PO SCH (08:23)
[2016-11-22] MEDS ORDERED: Lidocaine 2% Inj (20ml) ONE (09:04)
[2016-11-22] MEDS ORDERED: Midazolam 2 MG/2 ML VIAL ONE ×2 (09:35→10:18)
[2016-11-22] MEDS ORDERED: Sodium Chloride 0.45% 1,000 ML IV SCH (10:45)
--- NOTE | 2016-11-22 13:03 | CON ---
DATE: 11/22/2016 REASON FOR CONSULTATION: For DOC requested this morning. BRIEF CLINICAL HISTORY: This is a 51-year-old morbidly obese female with past medical history of chr onic anemia, on blood-blood product transfusion, history of Port-A-Cath, came in with blood culture o n admission was positive, so cardiology consult was called for possible DOC. The patient denies any chest pain, shortness of breath, denies any palpitation. Denies any history of loss of appetite or a ny symptoms. PAST MEDICAL HISTORY: Significant for TIA, bipolar disorder, schizophrenia, sleep apnea, gastric byp ass, hypothyroidism, rheumatoid arthritis, anemia of chronic disease, history of pituitary interventi on 20 years ago, on blood-blood product transfusion on maintenance, history of Port-A-Cath. PAST SURGICAL HISTORY: Significant for gastric bypass in 1999. SOCIAL HISTORY: Denies smoking. Denies any history of alcohol abuse. FAMILY HISTORY: Noncontributory. CURRENT MEDICATIONS: The patient is taking Synthroid, Lyrica, Cymbalta, Abilify, Lipitor, trazodone, vitamin D, Protonix, Eliquis, Ambien, Klonopin, ALLERGIES: ALLERGIC TO IODINE, MEPERIDINE, IODINATED CONTRAST MEDIA. THE PATIENT HAS HISTORY OF PAROXYSMAL ATRIAL FIBRILLATION, ON ELIQUIS, AND NOW PATIENT IS IN NORMAL S INUS. REVIEW OF SYSTEMS: As per HPI. PHYSICAL EXAMINATION: VITAL SIGNS: Temperature afebrile, heart rate 70, blood pressure 143/70. HEENT: PERRLA. Extraocular muscles intact. NECK: Supple. No carotid bruit. No thyromegaly. CHEST: Clear to auscultation. HEART: S1, S2 regular. ABDOMEN: Soft. EXTREMITIES: Clubbing and cyanosis negative. BLOOD WORKUP: As follows: WBC 6.8, hemoglobin 10.8, hematocrit 33.6, platelet count 280. Chemistry shows sodium 140, potassium 4.____, chloride 103, carbon dioxide 31, anion gap of 10, BUN 14, creati nine 1.0. Blood culture: No growth. Urine: 10,000 colonies. On admission, patient's blood cultur e in Dr. Malave's office it was told positive. The patient had echocardiogram 11/18/2016. The echo was good quality. Ejection fraction 55-60%, tra ce aortic regurgitation, trace to mild mitral regurgitation, trace to mild tricuspid regurgitation, r ight ventricular systolic pressure at 26, trace pulmonary insufficiency. No vegetation noted. IMPRESSION: Blood culture repeat is negative, status post removal of the Port-A-Cath today. Echocar diogram is negative. PLAN: Will not proceed for DOC for now. Will repeat blood culture tomorrow, will get sed rate. If the blood culture remains positive, consider DOC; otherwise, will treat medically as the patient is h aving removal of Port-A-Cath anyway and the repeat echo did not show any evidence of endocarditis. W BC is normal. Blood culture is negative. Will follow the sed rate and blood culture; will repeat to deo. Gisselle Parker MD cc: [phone] TT: 11/22/2016 13:03:13 Confirmation # [id number] Dictation # [id number] giuliano
[2016-11-22] MEDS: Oxycodone/Acetaminophen 5/325 mg Tab PO PRN ×2 (13:24→19:05)
--- NOTE | 2016-11-22 16:13 | VASCULAR ---
PROCEDURE: Removal of tunneled right internal jugular venous access port. CLINICAL HISTORY: Sepsis. Positive blood cultures. Right IJ venous access port. Possible infection. Remove port PHYSICIAN(S): Ricky Arellano M.D. TECHNIQUE: The relative risks and indications of the procedure were explained to the patient and consent obtained. The patient was placed supine on the arteriogram table and the right neck and chest prepped and draped usual sterile fashion. Conscious sedation and monitoring were provided throughout the procedure by a nurse. Antibiotics were given prior to the procedure. 1% Xylocaine was used to anesthetize the skin and soft tissues at the port. A 4 cm incision was made. The port was bluntly dissected and removed. The catheter was removed under fluoroscopic guidance. No retained catheter fragments were seen. The pocket was lavaged with normal saline. The pocket was closed in 2 layers. The patient tolerated the procedure well. IMPRESSION: 1. Removal of tunneled right internal jugular venous access port. 2. A catheter tip was sent for culture
--- NOTE | 2016-11-22 23:49 | PN ---
DATE: 11/22/2016 LOCATION: The patient is in room 369, bed 2. HISTORY OF PRESENT ILLNESS: This is a 51-year-old female with a diagnosis of short gut syndrome rela liset to gastric bypass surgery, hypothyroidism, has history of bipolar disorder, on multiple medicatio ns under the supervision of her psychiatrist, history of iron deficiency related to gastric bypass wali purvis, requiring intermittent IV therapy, was seen in the office complaining of fever and chills. Bl ood cultures were drawn, which came back positive for Gram stain being positive for gram-positive estefania ci on blood cultures for MRSA. The patient has a port on the right chest wall as she has difficulty in IV access for getting her intermittent IV iron therapy and, with this, the patient was started on broad spectrum antibiotics. She was asked to come into the hospital when the cultures came back posi tive. The patient has been seen by ID and she is on broad-spectrum antibiotics after consultation [facility] and , even though the transthoracic echo did not show any major , the feel ing was that, the patient had a prior admission to the [facility] with similar compla ints, that we should remove the port to help her from having further episodes of bacteremia, which co uld eventually lead to septicemia. Subjectively, the patient is feeling better. She had her port re moved earlier this afternoon. PHYSICAL EXAMINATION: VITAL SIGNS: Stable. T-max is 98.4, pulse is 68, respirations 17, blood pressure /68, pulse 96 % room air. HEENT: Head is normocephalic, atraumatic. Conjunctivae pale. Sclerae anicteric. Pupils are equall y reactive to light and accommodation. HEENT: Head is normocephalic, atraumatic. Examination of the oropharynx reveals no oropharyngeal le sions. Tongue is moist. NECK: Supple. There is no adenopathy. No jugular venous distention noted. LUNGS: Reveals it to be clear to percussion and auscultation. HEART: Reveals S1 and S2 to be normal. No gallop or murmur is heard. ABDOMEN: Soft, nontender. EXTREMITIES: Reveal no cyanosis, clubbing or edema. SKIN: Warm and dry. NEUROLOGIC: The patient is awake, alert, and oriented x 3 without any focal deficits. LABORATORY DATA: Reviewed, which shows the H and H be stable at this time. The patient has also bee n seen by Dr. Parker with the approval to remove the port despite he not being available. ASSESSMENT NOTES AND PLAN: The patient has methicillin-resistant Staphylococcus aureus bacteremia, f or which the patient had a port removed and the patient's past medical history significant for pneumo anel, for which she was admitted to the hospital, history of gastric bypass surgery, transient ischemi c attack, atrial fibrillation, schizophrenic disorder, bipolar disorder, history of rhabdomyolysis, h ypothyroidism and obesity. We will continue the current medications that she is on with an IV in the left arm and I told her that, if she needs to have a port inserted, we can do it in the future later after she has completed her antibiotics and the repeat cultures and blood cultures come back n egative. The tip of the port has been sent for culture and sensitivity also this morning. Time spent with the patient: 45 minutes. Routine post exam instructions have been given to the patient. Betzy Malave MD cc: [id number] TT: 11/22/2016 23:48:21 Confirmation # [id number] Dictation # [id number] giuliano
[2016-11-23] MEDS: Oxycodone/Acetaminophen 5/325 mg Tab PO PRN ×3 (03:39→20:03)
[2016-11-23] MEDS: Pantoprazole 40 mg EC Tab PO SCH (06:01)
[2016-11-23 07:23] LABS: ADD MANUAL DIFF? NO
[2016-11-23 07:29] LABS: BASO # 0.06 K/mm3 (0.0-2.0); EOS # 0.3 (0.0-0.7); EOS % 4.5 % (1.5-5.0); GRAN # 2.65 (1.4-6.5); GRAN % 42.9 % (50.0-68.0); HEMATOCRIT 34.5 % (36.0-48.0); LYMPH # 2.7 (1.2-3.4); LYMPH % 43.3 % (22.0-35.0); MEAN CORPUSCULAR HEMOGLOBIN 29.9 pg (25.0-35.0); MEAN CORPUSCULAR HGB CONC 32.2 g/dl (31.0-37.0); MEAN PLATELET VOLUME 9.6 fl (7.0-11.0); MONO # 0.5 (0.1-0.6); MONO % 8.3 % (1.0-6.0); PLATELET COUNT 249 10^3/uL (120.0-450.0); RED CELL DISTRIBUTION WIDTH 14.3 % (11.5-14.5); WHITE BLOOD COUNT 6.2 10^3/ul (4.5-11.0)
[2016-11-23] MEDS: Levothyroxine 150 MCG TAB PO SCH (08:34)
[2016-11-23 08:51] LABS: ERYTHROCYTE SEDIMENTATION RATE 28 mm/hr (0.0-20.0)
[2016-11-23] MEDS: Vancomycin 1gm in NS 250ml 1 GM/250 ML BAG IVPB SCH ×2 (09:22→21:47)
--- NOTE | 2016-11-23 13:11 | PN ---
DATE: 11/23/2016 The patient in room 369, bed 2. REASON FOR CONSULTATION AND FOLLOWUP: Rule out endocarditis, evaluation for a DOC. HISTORY OF PRESENT ILLNESS: The patient is a 51-year-old morbidly obese female with past medical his tory of chronic anemia, blood product transfusion, history of Port-A-Cath. Came in with blood cultur e positive and consultation has been requested for possible DOC to rule out endocarditis. The patien t denies any chest pain, shortness of breath, palpitation. The patient lying flat in bed. PHYSICAL EXAMINATION: VITAL SIGNS: Blood pressure is 108/66, respirations 18, pulse 57, temperature 97.7. HEAD: Normocephalic. EYES: Pupils normal. Conjunctivae slightly pale. NECK: JVP low. Carotid equal. THORAX: AP diameter normal. LUNGS: Clear. CARDIOVASCULAR: S1, S2. ABDOMEN: Soft, no tenderness, no organomegaly. Bowel sounds normal. EXTREMITIES: No clubbing, no cyanosis. LABORATORY DATA: WBC 6.2, hemoglobin 11.1, hematocrit 34.5, platelet 249. Sodium 140, potassium 4.1 , BUN 14, creatinine 1.0. Calcium, AST, ALT, total protein and albumin normal. The patient's repeat blood cultures so far have been negative. DIAGNOSES: Sepsis, status post removal of Port-A-Cath. Repeat blood cultures negative. PLAN: The patient's echocardiogram also has been negative and we have sent repeat blood cultures aga in and we will follow those blood cultures and if blood cultures remain negative, then discontinue me dical therapy and patient clinically does not have evidence of endocarditis with normal WBC, afebrile and repeat blood cultures negative. Gisselle Martínez MD cc: [id number] TT: 11/23/2016 13:10:19 Confirmation # [id number] Dictation # [id number] sn
--- NOTE | 2016-11-23 18:59 | CP.PCM.PN ---
Subjective - Date & Time of Evaluation Date of Evaluation: 11/23/16 Time of Evaluation: 11:15 - Subjective Subjective: Comfortable, had the port removed yesterday, no fevers overnight, less pain in the right chest area today. Objective - Vital Signs/Intake and Output Vital Signs (last 24 hours): Temp Pulse Resp BP Pulse Ox 98.2 F 62 18 112/70 98 11/23/16 16:00 11/23/16 16:00 11/23/16 16:00 11/23/16 16:00 11/23/16 16:00 Intake and Output: 11/23/16 11/23/16 06:59 18:59 Intake Total 1140 600 Output Total 600 Balance 1140 0 - Medications Medications: Current Medications Acetaminophen (Tylenol 325mg Tab) 650 mg PO Q4H PRN PRN Reason: Pain, Mild (1-3) Last Admin: 11/22/16 05:36 Dose: 650 mg Apixaban (Eliquis) 5 mg PO BID [facility] PRN Reason: Protocol Last Admin: 11/23/16 18:02 Dose: 5 mg Aripiprazole (Abilify) 20 mg PO HS [facility] Last Admin: 11/22/16 21:43 Dose: 20 mg Clonazepam (Klonopin) 0.5 mg PO TID PRN; Protocol PRN Reason: Agitation Last Admin: 11/22/16 21:44 Dose: 0.5 mg Clonazepam (Klonopin) 1 mg PO DAILY [facility] PRN Reason: Protocol Last Admin: 11/23/16 09:20 Dose: 1 mg Duloxetine HCl (Cymbalta) 20 mg PO BID [facility] Last Admin: 11/23/16 18:02 Dose: 20 mg Folic Acid (Folic Acid) 1 mg PO DAILY [facility] Last Admin: 11/23/16 09:20 Dose: 1 mg Vancomycin HCl (Vancomycin 1gm) 1 gm in 250 mls @ 167 mls/hr IVPB Q12H [facility] PRN Reason: Protocol Last Admin: 11/23/16 09:22 Dose: 167 mls/hr Levothyroxine Sodium (Synthroid) 150 mcg PO ACB [facility] Last Admin: 11/23/16 08:34 Dose: 150 mcg Oxycodone/Acetaminophen (Percocet 5/325 Mg Tab) 1 tab PO Q4H PRN PRN Reason: Pain, severe (8-10) Stop: 11/25/16 09:34 Last Admin: 11/23/16 10:55 Dose: 1 tab Pantoprazole Sodium (Protonix Ec Tab) 40 mg PO 0630 [facility] Last Admin: 11/23/16 06:01 Dose: 40 mg Pregabalin (Lyrica) 50 mg PO BID [facility] Last Admin: 11/23/16 18:02 Dose: 50 mg Trazodone HCl (Desyrel) 100 mg PO HS [facility] Last Admin: 11/22/16 21:43 Dose: 100 mg - Labs Labs: 11/23/16 07:00 11/22/16 06:45 PT 10.9 Seconds (9.9-11.8) 11/17/16 23:58 INR 1.01 (0.93-1.08) 11/17/16 23:58 APTT 27.8 Seconds (23.7-30.8) 11/17/16 23:58 - Constitutional Appears: Non-toxic, No Acute Distress - Head Exam Head Exam: NORMAL INSPECTION - ENT Exam ENT Exam: Mucous Membranes Moist - Neck Exam Neck Exam: absent: Lymphadenopathy, Meningismus - Respiratory Exam Respiratory Exam: Decreased Breath Sounds - Cardiovascular Exam Cardiovascular Exam: +S1, +S2 - GI/Abdominal Exam GI & Abdominal Exam: Soft. absent: Tenderness Assessment and Plan - Assessment and Plan (Free Text) Plan: Assessment sepsis due to MRSA bacteremia, consider port-a-cath as the source S/P removal POD #1 history of HCAP rheumatoid arthritis history of transient ischemic attack obstructive sleep apnea Morbid obesity with BMI 40 hypothyroidism bipolar disorder shcizoaffective disorder, S/P gastric bypass surgery Plan continue Vancomycin - the patient will need 4-6 weeks of IV antibiotics - once we have achieved a Vanco trough of 15-20, will need weekly ESR, CRP, CBC, CMP, Vanco trough while on Vancomycin; will follow up the hard copy of the outpatient blood cx result - repeat blood cx here are negative will continue to follow clinically
--- NOTE | 2016-11-23 19:43 | PN ---
DATE: 11/23/[address] Malave. SUBJECTIVE: The patient is a 51-year-old female, seen lying awake in bed in no acute distress with p ort removed yesterday. She is known to suffer from short gut syndrome, gastric bypass surgery, with admissions recently for panniculitis along with pneumonia with positive blood cultures for MRSA. She does have a port, which was removed yesterday. She is feeling well. She continues on IV antibiotic s as per Dr. Bustamante and Dr. Treviño. Consult with Dr. Parker and ____, it was appreciated for consid eration of a transesophageal echo; however, this was not done as per Dr. Parker, as blood cultures were repeated to see whether they will be necessary for this workup. Otherwise, the patient is in no acu te distress, feeling well today. OBJECTIVE: VITAL SIGNS: Temperature 98.2, pulse 62, respirations 18, blood pressure 112/70, pulse ox 98%. HEENT: Unremarkable. NECK: Supple. HEART: Regular rate. LUNGS: Clear. ABDOMEN: Obese, soft, and nontender. EXTREMITIES: No edema. SKIN: Warm, dry and clear. NEUROLOGIC: Awake and alert. LABORATORY DATA: The patient's labs were done. White blood cell count of 6.2, hemoglobin 11.1, magnolia tocrit 34.5, platelet count of 249,000 with a chem metabolic panel completely within normal limits to day. C-reactive protein of 4.4 two days prior, with a sedimentation rate of 28 today, random vancomy faraz level is 19.7 yesterday. ASSESSMENT: Methicillin resistant staphylococcus aureus bacteremia, status post port removal, previo us infections with pneumonia, panniculitis, history of transient ischemic attack, atrial fibrillation , schizophrenic disorder, bipolar disorder, history of rhabdomyolysis, hypothyroidism, obesity. PLAN: The patient is to continue present medical regimen as per consultants with IV antibiotics to continue with blood cultures repeated with consideration for continued IV antibiotics as per infectio us disease consultants as indicated. We will hold off on a transesophageal echocardiogram in the int erim with the prognosis for this patient guarded. We will monitor clinically and with labs. We will also recommend the patient be of bed and physiotherapy ambulate with assist. Ronal Criss NEGRO cc: [phone] TT: 11/23/2016 19:42:33 Confirmation # [id number] Dictation # [id number] jn
[2016-11-24] MEDS: Pantoprazole 40 mg EC Tab PO SCH (05:44)
[2016-11-24 08:20] LABS: ADD MANUAL DIFF? NO
[2016-11-24 08:28] LABS: BASO # 0.05 K/mm3 (0.0-2.0); BASO % 0.9 % (0.0-3.0); EOS # 0.2 (0.0-0.7); GRAN # 1.98 (1.4-6.5); GRAN % 34.7 % (50.0-68.0); HEMATOCRIT 37.3 % (36.0-48.0); LYMPH # 2.7 (1.2-3.4); LYMPH % 48.1 % (22.0-35.0); MEAN CELL VOLUME 95.9 fL (80.0-105.0); MEAN CORPUSCULAR HEMOGLOBIN 30.3 pg (25.0-35.0); MEAN CORPUSCULAR HGB CONC 31.6 g/dl (31.0-37.0); MEAN PLATELET VOLUME 10.5 fl (7.0-11.0); MONO # 0.7 (0.1-0.6); MONO % 12.3 % (1.0-6.0); PLATELET COUNT 238 10^3/uL (120.0-450.0); RED CELL DISTRIBUTION WIDTH 14.5 % (11.5-14.5); WHITE BLOOD COUNT 5.7 10^3/ul (4.5-11.0)
[2016-11-24 08:34] LABS: ALB/GLOB RATIO 1.1 (1.1-1.8); ALKALINE PHOSPHATASE 75 U/L (38-133); ALT/SGPT 19 U/L (7-56); AST/SGOT 20 U/L (15-39); BILIRUBIN,TOTAL 0.3 mg/dL (0.2-1.3); BLOOD UREA NITROGEN 17 mg/dL (7-21); CALCIUM 8.7 mg/dL (8.4-10.5); CARBON DIOXIDE 26 mmol/L (21-33); CHLORIDE 105 mmol/L (98-107); GFR AFRICAN-AMERICAN > 60; GLUCOSE,RANDOM 66 mg/dL (70-110); POTASSIUM 4.2 mmol/L (3.6-5.0); SODIUM 138 mmol/L (132-148); TOTAL PROTEIN 6.6 g/dL (5.8-8.3)
[2016-11-24] MEDS: Levothyroxine 150 MCG TAB PO SCH (08:49)
[2016-11-24] MEDS: Vancomycin 1gm in NS 250ml 1 GM/250 ML BAG IVPB SCH ×2 (09:28→21:01)
--- NOTE | 2016-11-24 11:09 | CP.PCM.PN ---
Subjective - Date & Time of Evaluation Date of Evaluation: 11/24/16 Time of Evaluation: 10:20 - Subjective Subjective: Comfortable, not in distress, afebrile, less pain in the right chest area where the port previously was. Objective - Vital Signs/Intake and Output Vital Signs (last 24 hours): Temp Pulse Resp BP Pulse Ox 97.4 F L 60 19 102/57 L 98 11/24/16 07:48 11/24/16 07:48 11/24/16 07:48 11/24/16 07:48 11/24/16 07:48 Intake and Output: 11/24/16 11/24/16 06:59 18:59 Intake Total 1020 0 Balance 1020 0 - Medications Medications: Current Medications Acetaminophen (Tylenol 325mg Tab) 650 mg PO Q4H PRN PRN Reason: Pain, Mild (1-3) Last Admin: 11/22/16 05:36 Dose: 650 mg Apixaban (Eliquis) 5 mg PO BID [facility] PRN Reason: Protocol Last Admin: 11/24/16 09:29 Dose: 5 mg Aripiprazole (Abilify) 20 mg PO [facility] Last Admin: 11/23/16 21:48 Dose: 20 mg Clonazepam (Klonopin) 0.5 mg PO TID PRN; Protocol PRN Reason: Agitation Last Admin: 11/23/16 21:50 Dose: 0.5 mg Clonazepam (Klonopin) 1 mg PO DAILY [facility] PRN Reason: Protocol Last Admin: 11/24/16 09:29 Dose: 1 mg Duloxetine HCl (Cymbalta) 20 mg PO BID [facility] Last Admin: 11/24/16 09:29 Dose: 20 mg Folic Acid (Folic Acid) 1 mg PO DAILY [facility] Last Admin: 11/24/16 09:29 Dose: 1 mg Vancomycin HCl (Vancomycin 1gm) 1 gm in 250 mls @ 167 mls/hr IVPB Q12H [facility] PRN Reason: Protocol Last Admin: 11/24/16 09:28 Dose: 167 mls/hr Levothyroxine Sodium (Synthroid) 150 mcg PO ACB [facility] Last Admin: 11/24/16 08:49 Dose: 150 mcg Oxycodone/Acetaminophen (Percocet 5/325 Mg Tab) 1 tab PO Q4H PRN PRN Reason: Pain, severe (8-10) Stop: 11/25/16 09:34 Last Admin: 11/23/16 20:03 Dose: 1 tab Pantoprazole Sodium (Protonix Ec Tab) 40 mg PO 0630 [facility] Last Admin: 11/24/16 05:44 Dose: 40 mg Pregabalin (Lyrica) 50 mg PO BID [facility] Last Admin: 11/24/16 09:29 Dose: 50 mg Trazodone HCl (Desyrel) 100 mg PO HS [facility] Last Admin: 11/23/16 21:48 Dose: 100 mg - Labs Labs: 11/24/16 07:30 11/24/16 07:30 PT 10.9 Seconds (9.9-11.8) 11/17/16 23:58 INR 1.01 (0.93-1.08) 11/17/16 23:58 APTT 27.8 Seconds (23.7-30.8) 11/17/16 23:58 - Constitutional Appears: Non-toxic, No Acute Distress - Head Exam Head Exam: NORMAL INSPECTION - ENT Exam ENT Exam: Mucous Membranes Moist - Respiratory Exam Respiratory Exam: Decreased Breath Sounds Additional comments: right anterior chest wall with dressings in place - Cardiovascular Exam Cardiovascular Exam: +S1, +S2 - GI/Abdominal Exam GI & Abdominal Exam: Soft. absent: Tenderness Assessment and Plan - Assessment and Plan (Free Text) Plan: Assessment sepsis due to MRSA bacteremia, consider port-a-cath as the source S/P removal POD #2 history of HCAP rheumatoid arthritis history of transient ischemic attack obstructive sleep apnea Morbid obesity with BMI 40 hypothyroidism bipolar disorder shcizoaffective disorder, S/P gastric bypass surgery Plan continue Vancomycin - the patient will need 4-6 weeks of IV antibiotics - once we have achieved a Vanco trough of 15-20, will need weekly ESR, CRP, CBC, CMP, Vanco trough while on Vancomycin; Vanco DAVE of the MRSA from the outpatient blood cx is 1 - repeat blood cx here are negative will continue to follow clinically
--- NOTE | 2016-11-24 12:51 | PN ---
DATE: 11/24/2016 The patient in room 369, bed 2. REASON FOR CONSULTATION AND FOLLOWUP: Rule out endocarditis, evaluation for a DOC. HISTORY OF PRESENT ILLNESS: The patient is a 51-year-old morbidly obese female with past medical his tory of chronic anemia, blood product transfusion, history of Port-A-Cath, came in with blood culture s positive and consultation has been requested for possible DOC to rule out endocarditis. The patien t now is afebrile. Denies chest pain, shortness of breath or palpitation. The patient's Port-A-Cath has been removed and since then blood cultures have been negative. Yesterday's addition to blood cu ltures are also so far negative. PHYSICAL EXAMINATION: VITAL SIGNS: Blood pressure 102/57, respirations 19, pulse 60, temperature 97.4. HEAD: Normocephalic. EYES: Pupils normal. Conjunctivae are slightly pale. NECK: JVP low. Carotid equal. THORAX: AP diameter normal. LUNGS: Clear. CARDIOVASCULAR: S1, S2. ABDOMEN: Soft. No tenderness, no organomegaly. Bowel sounds normal. EXTREMITIES: No clubbing, no cyanosis. LABORATORY DATA: WBC 5.7, hemoglobin 11.8, hematocrit 37.3, platelet 238. Sodium 138, potassium 4.2 , BUN 17, creatinine 0.9. Random glucose 66. Calcium, bilirubin, AST, ALT, total protein and albumi n normal. DIAGNOSES: Sepsis, status post removal of Port-A-Cath. Repeat blood cultures are negative. Yesterd ay blood cultures were also negative. The patient's echocardiogram has been also negative for endoca rditis. PLAN: Since blood cultures continue to be negative, patient afebrile, there is no WBC elevation and WBCs are normal, so the patient does not seem to have any endocarditis. So at this moment will hold off for DOC and continue present therapy with Eliquis 5 mg b.i.d., folic acid 1 mg daily, Synthroid 1 50 mcg p.o. daily, vancomycin 1 gram q. 12 hours. Will follow with you. Gisselle Martínez MD cc: [id number] TT: 11/24/2016 12:51:12 Confirmation # [id number] Dictation # [id number] mn
[2016-11-24] MEDS ORDERED: Lidocaine 2% Inj (20ml) ONE (13:59)
[2016-11-24] MEDS: Oxycodone/Acetaminophen 5/325 mg Tab PO PRN ×2 (15:46→20:49)
--- NOTE | 2016-11-24 19:54 | VASCULAR ---
PROCEDURE: Ultrasound and fluoroscopically placed left upper extremity PICC line. HISTORY: Infected port. Recently removed. Needs long-term IV antibiotics. Limited IV access. PHYSICIAN(S): Ricky Arellano MD. TECHNIQUE: The relative risks and indications of the procedure were explained to the patient and consent obtained. The patient was placed supine on the arteriogram table and the left arm prepped and draped in the usual sterile fashion. A tourniquet was applied to the left axilla. 1% Xylocaine was used to anesthetize the skin and soft tissues at the puncture site above the elbow. The left basilic vein was punctured under direct ultrasound guidance with a micropuncture set. A 0.018 guidewire was advanced centrally and used to measure the length to the SVC/RA junction. A 5 Ni[place]an single-lumen PICC line 45 cm long was advanced to the SVC/RA junction. The catheter was flushed and secured. The patient tolerated the procedure well. IMPRESSION: 1. Ultrasound and fluoroscopically placed left upper extremity PICC line. A 5 [place]uean single-lumen PICC line 45 cm long was advanced to the SVC/RA junction.
--- NOTE | 2016-11-24 23:44 | PN ---
DATE: 11/24/2016 Hospital visit on the medical floor. For Dr. Malave. SUBJECTIVE: The patient is a 51-year-old female, seen lying awake in bed with her at the bed side, status post PICC line placement today in anticipation of discharge home soon, possibly tomorrow , with the patient now recommended as per Dr. Treviño, infectious disease edi consultant, for 4-6 weeks of IV antibiotics due to sepsis secondary to methicillin-resistant Staphylococcus aureus bacteremia as p er Dr. Treviño's note. The patient is otherwise in no acute distress. Attached the hard copy to the patient's chart, one is recommended to be advised of the positive blood aerobic Gram stain, gram-positive cocci in clusters, culture blood aerobic set up number 1 showing p eripheral site organism number 1 positive growth of methicillin-resistant Staph aureus, positive for methicillin-resistant Staph aureus, MRSA, contact precaution recommended. Oxacillin, cefoxitin susce ptible Staphylococci can be considered susceptible to Augmentin along with other antibiotics listed. For methicillin-resistant Staph aureus, sensitivity showed clindamycin, gentamicin, linezolid, rifam pin, tetracycline, Bactrim and vancomycin. Culture, the Staph aureus isolate does not demonstrate in ducible clindamycin resistance in vitro. One is referred to these tests. PHYSICAL EXAMINATION: VITAL SIGNS: Temperature 97.6, pulse 66, respirations 20, blood pressure 130/71, pulse ox 99%. HEENT: Unremarkable. NECK: Supple. HEART: Regular rate. LUNGS: Clear. ABDOMEN: Obese, soft, and nontender. EXTREMITIES: Status post PICC line in the left upper extremity, status post port removal in her righ t chest. NEUROLOGIC: Awake, alert and oriented. SKIN: Otherwise, warm, dry and clear. EXTREMITIES: No edema. LABORATORY DATA: The patient's labs were done. White blood cell count of 5.7, hemoglobin 11.8, magnolia tocrit 37.3, platelet count 238,000 with a chem metabolic panel within normal range. Her vancomycin trough was 18.0. ASSESSMENT: Sepsis due to methicillin-resistant Staphylococcus aureus bacteremia with port removed with a PICC li ne placed, history of transient ischemic attack, rheumatoid arthritis, hypothyroidism, bipolar disord er, schizoaffective disorder, status post gastric bypass surgery, recent panniculitis, history of rha bdomyolysis. PLAN: Continue present medical regimen as per Dr. Treviño with IV antibiotics to continue 4 to 6 weeks with other protocols as per his recommendation with discharge home tomorrow if the patient is stable . Labs will be repeated in the morning. Ronal Kahn MD cc: [phone] TT: 11/24/2016 23:43:12 Confirmation # [id number] Dictation # [id number] mn
[2016-11-25] MEDS: Oxycodone/Acetaminophen 5/325 mg Tab PO PRN ×2 (01:09→06:02)
[2016-11-25] MEDS: Pantoprazole 40 mg EC Tab PO SCH (05:34)
[2016-11-25 06:05] LABS: ADD MANUAL DIFF? NO
[2016-11-25 06:16] LABS: ALB/GLOB RATIO 1.1 (1.1-1.8); ALKALINE PHOSPHATASE 89 U/L (38-133); ALT/SGPT 23 U/L (7-56); AST/SGOT 23 U/L (15-39); BILIRUBIN,TOTAL 0.4 mg/dL (0.2-1.3); BLOOD UREA NITROGEN 16 mg/dL (7-21); CALCIUM 9.4 mg/dL (8.4-10.5); CARBON DIOXIDE 30 mmol/L (21-33); CHLORIDE 105 mmol/L (98-107); GFR AFRICAN-AMERICAN > 60; GLUCOSE,RANDOM 78 mg/dL (70-110); SODIUM 141 mmol/L (132-148); TOTAL PROTEIN 7.1 g/dL (5.8-8.3)
[2016-11-25 06:20] LABS: BASO # 0.05 K/mm3 (0.0-2.0); BASO % 0.5 % (0.0-3.0); EOS # 0.2 (0.0-0.7); EOS % 1.8 % (1.5-5.0); GRAN # 6.61 (1.4-6.5); HEMATOCRIT 36.8 % (36.0-48.0); LYMPH # 2.2 (1.2-3.4); LYMPH % 22.4 % (22.0-35.0); MEAN CELL VOLUME 94.4 fL (80.0-105.0); MEAN CORPUSCULAR HEMOGLOBIN 30.5 pg (25.0-35.0); MEAN CORPUSCULAR HGB CONC 32.3 g/dl (31.0-37.0); MEAN PLATELET VOLUME 10.6 fl (7.0-11.0); MONO # 0.7 (0.1-0.6); MONO % 7.3 % (1.0-6.0); PLATELET COUNT 266 10^3/uL (120.0-450.0); RED CELL DISTRIBUTION WIDTH 14.6 % (11.5-14.5); WHITE BLOOD COUNT 9.7 10^3/ul (4.5-11.0)
[2016-11-25 07:45] LABS: POTASSIUM 4.5 mmol/L (3.6-5.0)
[2016-11-25] MEDS: Levothyroxine 150 MCG TAB PO SCH (08:25)
[2016-11-25 08:31] VITALS: RESP 18
[2016-11-25] MEDS: Vancomycin 1gm in NS 250ml 1 GM/250 ML BAG IVPB SCH (09:09)
--- NOTE | 2016-11-25 11:10 | CP.PCM.PN ---
Subjective - Date & Time of Evaluation Date of Evaluation: 11/25/16 Time of Evaluation: 09:45 - Subjective Subjective: Comfortable, afebrile, no pain in the right chest wall where the previous port was. Objective - Vital Signs/Intake and Output Vital Signs (last 24 hours): Temp Pulse Resp BP Pulse Ox 97.7 F 86 18 123/80 98 11/25/16 06:00 11/25/16 06:00 11/25/16 06:00 11/25/16 06:00 11/25/16 06:00 Intake and Output: 11/25/16 11/25/16 06:59 18:59 Intake Total 540 120 Balance 540 120 - Medications Medications: Current Medications Acetaminophen (Tylenol 325mg Tab) 650 mg PO Q4H PRN PRN Reason: Pain, Mild (1-3) Last Admin: 11/22/16 05:36 Dose: 650 mg Apixaban (Eliquis) 5 mg PO BID [facility] PRN Reason: Protocol Last Admin: 11/24/16 17:34 Dose: 5 mg Aripiprazole (Abilify) 20 mg PO HS [facility] Last Admin: 11/24/16 22:51 Dose: 20 mg Clonazepam (Klonopin) 0.5 mg PO TID PRN; Protocol PRN Reason: Agitation Last Admin: 11/24/16 22:51 Dose: 0.5 mg Clonazepam (Klonopin) 1 mg PO DAILY [facility] PRN Reason: Protocol Last Admin: 11/24/16 09:29 Dose: 1 mg Duloxetine HCl (Cymbalta) 20 mg PO BID [facility] Last Admin: 11/24/16 17:34 Dose: 20 mg Folic Acid (Folic Acid) 1 mg PO DAILY [facility] Last Admin: 11/24/16 09:29 Dose: 1 mg Vancomycin HCl (Vancomycin 1gm) 1 gm in 250 mls @ 167 mls/hr IVPB Q12H [facility] PRN Reason: Protocol Last Admin: 11/24/16 21:01 Dose: 167 mls/hr Levothyroxine Sodium (Synthroid) 150 mcg PO ACB [facility] Last Admin: 11/25/16 08:25 Dose: 150 mcg Oxycodone/Acetaminophen (Percocet 5/325 Mg Tab) 1 tab PO Q4H PRN PRN Reason: Pain, severe (8-10) Stop: 11/25/16 09:34 Last Admin: 11/25/16 06:02 Dose: 1 tab Pantoprazole Sodium (Protonix Ec Tab) 40 mg PO 0630 [facility] Last Admin: 11/25/16 05:34 Dose: 40 mg Pregabalin (Lyrica) 50 mg PO BID [facility] Last Admin: 11/24/16 17:34 Dose: 50 mg Trazodone HCl (Desyrel) 100 mg PO HS [facility] Last Admin: 11/24/16 22:52 Dose: 100 mg - Labs Labs: 11/25/16 06:00 11/25/16 06:00 PT 10.9 Seconds (9.9-11.8) 11/17/16 23:58 INR 1.01 (0.93-1.08) 11/17/16 23:58 APTT 27.8 Seconds (23.7-30.8) 11/17/16 23:58 - Constitutional Appears: Non-toxic, No Acute Distress - Head Exam Head Exam: NORMAL INSPECTION - ENT Exam ENT Exam: Mucous Membranes Moist - Neck Exam Neck Exam: absent: Lymphadenopathy, Meningismus - Respiratory Exam Respiratory Exam: Decreased Breath Sounds Additional comments: right anterior chest wall with dressings in place - Cardiovascular Exam Cardiovascular Exam: +S1, +S2 - GI/Abdominal Exam GI & Abdominal Exam: Soft. absent: Tenderness Assessment and Plan - Assessment and Plan (Free Text) Plan: Assessment sepsis due to MRSA bacteremia, consider port-a-cath as the source S/P removal POD #3 history of HCAP rheumatoid arthritis history of transient ischemic attack obstructive sleep apnea Morbid obesity with BMI 40 hypothyroidism bipolar disorder shcizoaffective disorder, S/P gastric bypass surgery Plan continue Vancomycin (day 9 today from first negative blood cx) - the patient will need 4-6 weeks of IV antibiotics - once we have achieved a Vanco trough of 15-20 (yesterday's Vanco trough was 18), will need weekly ESR, CRP, CBC, CMP, Vanco trough while on Vancomycin - PMD will be following these; Vanco DAVE of the MRSA from the outpatient blood cx is 1 - Vancomycin can be used with the target trough levels - repeat blood cx here are negative
--- NOTE | 2016-11-25 13:14 | PN ---
DATE: 11/25/2016 The patient is in room 369, bed 2. REASON FOR CONSULTATION AND FOLLOWUP: Rule out endocarditis, evaluation for DOC. HISTORY OF PRESENT ILLNESS: The patient is a 51-year-old morbidly obese female with past medical his tory of chronic anemia, blood product transfusion, history of Port-A-Cath, came in with blood culture positive and consultation has been requested for possible DOC to rule out endocarditis; however, tommy maresnt had a Port-A-Cath removed and since then, patient is afebrile and subsequent blood cultures have been negative, so there was no indication to do DOC for endocarditis. The patient was afebrile and white cell count was normal and followup blood cultures were all negative. PHYSICAL EXAMINATION: VITAL SIGNS: Blood pressure 120/80, respirations 18, pulse 86, temperature 97.7. HEAD: Normocephalic. EYES: Pupils normal. Conjunctivae are slightly pale. NECK: JVP low. Carotids equal. THORAX: AP diameter normal. LUNGS: Clear. CARDIOVASCULAR: S1, S2. No rub. No murmur. ABDOMEN: Soft, nontender, no organomegaly. Bowel sounds normal. EXTREMITIES: No clubbing, no cyanosis. LABORATORY DATA: WBC 9.7, hemoglobin 11.9, hematocrit 36.8, platelets 266. Sodium 141, potassium 4. 5, BUN 16, creatinine 1.0, random sugar was 68. Random glucose 78. AST, ALT normal. Alkaline phosp hatase normal. Total protein and albumin normal. The patient's subsequent blood cultures done on were all negative. The catheter tip culture is also negative. DIAGNOSES: Sepsis, status post removal of Port-A-Cath, repeat blood cultures are negative. White ce ll count normal. The patient's echo was also negative for endocarditis. PLAN: Probably infection related to the Port-A-Cath and since the removal, patient is feeling better and afebrile and subsequent cultures are negative, so we will continue present therapy. The patient is on Eliquis 5 mg b.i.d., folic acid 1 mg daily, Synthroid 150 mcg p.o. daily. The patient is on v ancomycin 1 gram IV q. 12 hours, Synthroid 150 mcg p.o. daily, Protonix 40 daily, Lyrica 50 mg b.i.d. We will continue present therapy. Gisselle Martínez MD cc: [id number] TT: 11/25/2016 13:13:30 Confirmation # [id number] Dictation # [id number] rn
[2016-11-25 17:19] VITALS: BP 120/76; PULSE 76; TEMP 97.4; O2SAT 99
--- NOTE | 2016-11-26 08:12 | DS ---
The patient is in room 369, bed 2, being discharged today. A 51-year-old female who has had multiple admissions to the hospital, is being discharged today after placement of a peripheral PICC line in the left arm. The patient is going home on vancomycin, going to be administered 1 gram q. 12 hours for a period of 4 weeks for documented methicillin-resistant S taphylococcus aureus bacteremia on blood culture that was drawn in the office when she came in. ____ , the patient ____ [facility] with similar symptoms. PAST MEDICAL HISTORY: Significant for several things, including ____ TIA, ____, atrial fibrillation, status post gastric bypass surgery, ____, history of bipolar depression on multiple medications. MEDICATIONS: Under care for intermittent IV iron. Was now admitted with the aforementioned complain ts and is being discharged on the current medications: SUBJECTIVE: The patient is feeling better. She is awake and in bed with her at the bedside. The patient has already been seen by the ID franchise consultant, Dr. Treviño, who has given them recommendatio ns. Port site where the port was on the right side where the port has been removed has surgical dres sing which needs to be changed every 2 days for the next 10 days. PICC line on the left is in place and PICC line catheter management will be done by visiting nurses at the home visiting company. PHYSICAL EXAMINATION: VITAL SIGNS: Reveal T-max to be 98.4, pulse 60, respirations 20, blood pressure is 130/71, pulse ox is 99%. HEENT: Head is normocephalic, atraumatic. NECK: Supple. There is no adenopathy. No oropharyngeal lesions are noted. HEART: Reveals S1 and S2 to be normal. No gallop or murmur is heard. The patient has a sterile deb ssing on the right chest wall infraclavicularly where the port was removed. Cath tip has been sent f or cultures. The patient has a left arm PICC line. The site appears to be good. The dressing has b een changed just prior to discharge. EXTREMITIES: Reveal no cyanosis, clubbing or edema. NEUROLOGIC: Higher functions are normal. No focal deficits are noted. The patient denies any signi ficant abdominal complaints at this time. ABDOMEN: Soft, nontender. SKIN: Turgor is decreased. No skin lesions are noted. LABORATORY DATA: Reveals hemoglobin and hematocrit to be stable. The patient will continue IV antibiotics for a period of ____. Labs will be drawn on a weekly basis and will be submitted to us on a weekly basis. ____ the patient outpatient instructions, ____ as wel l. Medications at home will be Ability ____ mg at bedtime, ____ 20 b.i.d., trazodone 100 mg p.o. at bedt olivier, ____ mg p.o. b.i.d. for atrial fibrillation, folic acid 1 mg daily, Klonopin 0.5 mg p.o. t.i.d. p.r.n., Klonopin 1 mg daily, Lyrica 50 mg p.o. b.i.d. She is on oxycodone, Percocet 1 tab q. 4 hours p.r.n. She is on Protonix 40 mg p.o. daily, Synthroid 150 mcg daily, Tylenol 650 mg p.o. q. 6 hours p.r.n. She is on vancomycin 1 gram q. 12 hours. One dose is going to be given now. The evening do se will be set up at home. The patient is being discharged on the prior medications. Reconciliation of the medications was done and the patient will be returning to see us as an outpatient. Routine p ost exam instructions have been given to the patient and her . Betzy Malave MD cc: [id number] TT: 11/26/2016 08:11:45 tn
== END 2016-11-25 17:18 | disposition home or self-care (01) | DRG 550 ==
LOC: ED 21:47 → ERH 22:23 → 3RNO 11-18 03:08
PROVIDERS: ADMIT Family Medicine; ATTEND Family Medicine
PROC: 05PY33Z Removal of Infusion Device from Upper Vein, Percutaneous Approach (ICD-10-PCS; principal; 2016-11-22)
PROC: 02HV33Z Insertion of Infusion Device into Superior Vena Cava, Percutaneous Approach (ICD-10-PCS; 2016-11-24)
PROC: B54NZZA Ultrasonography of Left Upper Extremity Veins, Guidance (ICD-10-PCS; 2016-11-24)
DX: T80.212A Local infection due to central venous catheter, initial encounter (principal); A41.02 Sepsis due to Methicillin resistant Staphylococcus aureus; F25.9 Schizoaffective disorder, unspecified; G47.33 Obstructive sleep apnea (adult) (pediatric); M06.9 Rheumatoid arthritis, unspecified; E66.01 Morbid (severe) obesity due to excess calories; E03.9 Hypothyroidism, unspecified; F31.9 Bipolar disorder, unspecified; I48.91 Unspecified atrial fibrillation; D63.8 Anemia in other chronic diseases classified elsewhere; Z87.01 Personal history of pneumonia (recurrent); Z98.84 Bariatric surgery status; Z68.41 Body mass index [BMI] 40.0-44.9, adult; Z86.73 Personal history of transient ischemic attack (TIA), and cerebral infarction without residual deficits

== ENCOUNTER 2017-01-06 09:41 | Day surgery (SDC) | payer MEDICAID ==
[2017-01-06 10:13] LABS: BASO # 0.04 K/mm3 (0.0-2.0); BASO % 0.5 % (0.0-3.0); EOS # 0.2 (0.0-0.7); EOS % 2.7 % (1.5-5.0); GRAN # 4.36 (1.4-6.5); GRAN % 59.7 % (50.0-68.0); HEMOGLOBIN 12.1 gm/dL (12.0-16.0); LYMPH # 2.2 (1.2-3.4); LYMPH % 30.1 % (22.0-35.0); MEAN CELL VOLUME 93.6 fL (80.0-105.0); MEAN PLATELET VOLUME 9.9 fl (7.0-11.0); MONO # 0.5 (0.1-0.6); PLATELET COUNT 283 10^3/uL (120.0-450.0); RBC 4.04 10^6/uL (3.5-6.1); RED CELL DISTRIBUTION WIDTH 13.8 % (11.5-14.5); WHITE BLOOD COUNT 7.3 10^3/ul (4.5-11.0)
[2017-01-06 10:23] LABS: PARTIAL THROMBOPLASTIN TIME 27.8 Seconds (23.7-30.8); PROTHROMBIN TIME 10.8 Seconds (9.9-11.8)
[2017-01-06] MEDS ORDERED: Lidocaine 2% Inj (20ml) ONE (10:25)
[2017-01-06 10:38] LABS: CALCIUM 9.6 mg/dL (8.4-10.5)
--- NOTE | 2017-01-06 10:51 | CP.SDSHP ---
Same Day Surgery H & P - History Proposed Procedure: insertion of venous port. Pre-Op Diagnosis: anemia .iron defficiency. - Previous Medical/Surgical History Pulmonary: Asthma Endocrine/Metabolic: Thyroid Disease, Obesity, Other (hypoglycemia.) Neuro: TIA/CVA, Backaches Misc: Anemia Previous Surgical History: gastric bypass. - Allergies Allergies: Allergies Iodinated Contrast- Oral and IV Dye [Iodinated Contrast Media - IV Dye] Allergy (Verified 10/02/16 12:19) RASH iodine Allergy (Verified 10/02/16 12:19) RASH meperidine Allergy (Verified 10/02/16 12:19) RASH - Physical Exam General Appearance: WNL. Vital Signs: Vital Signs 01/06/17 10:10 Temperature 97.7 F Pulse Rate 77 Respiratory 18 Rate Blood Pressure 108/70 O2 Sat by Pulse 98 Oximetry Mental Status: Alert & Oriented x3 Neuro: WNL Heart: WNL Lungs: WNL GI: WNL - {Optional Preform as Required} Other Pertinent Findings: hx of schizophrenia,sleep apnea fibromyalgia, gi bleed.arthritis. - Impression Impression: IRON defficiency anemia. - Date & Time Date: 01/06/17 Time: 10:51 Short Stay Discharge - Short Stay Discharge Admitting Diagnosis/Reason for Visit: D50.9 Disposition: HOME/ ROUTINE Referrals: Ronal Kahn MD [Primary Care Provider] -
[2017-01-06] MEDS ORDERED: Midazolam 2 MG/2 ML VIAL ONE ×2 (11:13→11:49)
[2017-01-06] MEDS ORDERED: Oxycodone/Acetaminophen 5/325 mg Tab PO PRN (13:35)
[2017-01-06] MEDS ORDERED: Sodium Chloride 0.45% 1,000 ML IV SCH (13:45)
[2017-01-06 13:56] VITALS: O2SAT 98
[2017-01-06 14:39] VITALS: RESP 18; TEMP 97.8
[2017-01-06] MEDS ORDERED: Oxycodone/Acetaminophen 5/325 mg Tab ONE (15:58)
[2017-01-06 16:00] VITALS: BP 123/76; PULSE 72
--- NOTE | 2017-01-06 16:28 | VASCULAR ---
PROCEDURE: Ultrasound and fluoroscopic right internal jugular venous access port. CLINICAL HISTORY: Chronic anemia. Poor IV access. Previous infected port. Needs port for IV infusion and transfusions. PHYSICIAN(S): Ricky Arellano M.D. TECHNIQUE: The relative risks and indications of the procedure were explained to the patient and consent obtained. The patient was placed supine on the arteriogram table and the right neck and chest prepped and draped in the usual sterile fashion. Conscious sedation monitoring was provided throughout the procedure by a nurse. Antibiotics were given prior to the procedure. Under direct ultrasound guidance, the right internal jugular vein was punctured with a micro-puncture set. A 0.035 angled Glidewire was advanced into the IVC. A 4 cm incision was made below the right clavicle and the pocket blunted dissected. A 8 Thai single-lumen catheter, 21 cm long, was advanced to the SVC/RA junction. The catheter was trimmed and attached to the port. The port aspirates and injects easily. The port was placed in the pocket and closed in 2 layers. The patient tolerated the procedure well. IMPRESSION: Ultrasound and fluoroscopically placed right internal jugular venous access port.
== END 2017-01-06 16:45 | disposition home or self-care (01) ==
LOC: SDSVAS 09:41
PROVIDERS: ATTEND Radiology Vascular & Interventional Radiology
DX: D50.9 Iron deficiency anemia, unspecified (principal); J45.909 Unspecified asthma, uncomplicated; F20.9 Schizophrenia, unspecified; E66.9 Obesity, unspecified; Z98.84 Bariatric surgery status; Z68.37 Body mass index [BMI] 37.0-37.9, adult
CPT/HCPCS: 36415; 36561; 76937; 77001; 80048; 84703; 85025; 85610; 85730; 99152; 99153; C1769; C1788; J0690; J1644; J2250; J2405; J3010; J7030

== ENCOUNTER 2017-03-30 09:03 | Day surgery (SDC) | payer MEDICARE ==
[2017-03-21 12:20] VITALS: BMI 38.4
[2017-03-30 10:09] LABS: BASO # 0.03 K/mm3 (0.0-2.0); BASO % 0.5 % (0.0-3.0); EOS # 0.2 (0.0-0.7); GRAN # 3.57 (1.4-6.5); GRAN % 59.8 % (50.0-68.0); HEMATOCRIT 31.6 % (36.0-48.0); LYMPH # 1.8 (1.2-3.4); LYMPH % 29.5 % (22.0-35.0); MEAN CELL VOLUME 90.3 fl (80.0-105.0); MEAN PLATELET VOLUME 9.4 fl (7.0-11.0); MONO # 0.4 (0.1-0.6); MONO % 7.2 % (1.0-6.0); RED CELL DISTRIBUTION WIDTH 16.8 % (11.5-14.5)
[2017-03-30 10:15] VITALS: RESP 18; O2SAT 100
[2017-03-30 10:19] LABS: INR 0.99 (0.93-1.08); PARTIAL THROMBOPLASTIN TIME 28.9 Seconds (23.7-30.8)
[2017-03-30 10:22] LABS: BLOOD UREA NITROGEN 17 mg/dL (7-21); CALCIUM 8.9 mg/dL (8.4-10.5); CARBON DIOXIDE 30 mmol/L (21-33); CHLORIDE 106 mmol/L (98-107); CHOLESTEROL 192 mg/dL (130-200); GFR AFRICAN-AMERICAN > 60; GLUCOSE,RANDOM 86 mg/dL (70-110); POTASSIUM 3.7 mmol/L (3.6-5.0); SODIUM 142 mmol/L (132-148)
[2017-03-30] MEDS ORDERED: Lidocaine 2% Inj (20ml) ONE (12:39)
[2017-03-30] MEDS ORDERED: Liquid Adhesive TOP ONE (13:16)
[2017-03-30 14:14] VITALS: TEMP 97.8
[2017-03-30 15:00] VITALS: BP 129/76; PULSE 97
--- NOTE | 2017-03-30 15:51 | OP ---
PROCEDURE DATE: 03/30/2017 PREOPERATIVE DIAGNOSIS: Palpitations, atrial fibrillation. PROCEDURE: Implantation of a implantable loop recorder. BRIEF HISTORY: The patient is a 51-year-old female with past medical history significant for dyslipidemia, morbid obesity, TIA, diabetes, history of atrial fibrillation on Eliquis, status post gastric bypass surgery, hyperlipidemia, hypothyroidism, who presents for implantable loop recorder implantation today. The patient has been seen at [facility] by myself a total of 3 times in regards to addressing her symptoms of palpitations. The patient had been underwent 24-hour and 21-day event monitoring without any significant findings. Therefore, after discussing further workup of her ongoing symptoms of palpitations, it was felt that implantable loop recorder may be of the help with intermittently establishing a symptom rhythm correlation. Of note, recently, the patient has been admitted to [facility] [place] with findings of moderate sized pericardial effusion. At that point, it was treated conservatively. Informed consent was received for the procedure. Conscious sedation was not administered, the patient is diabetic and had become somewhat hypoglycemic prior to the case requiring p.o. intake of orange juice which she did respond to, therefore, conscious sedation was not administered for this case. The patient was brought to the cardiac slab inspector at [facility] [place] today for the aforementioned procedure. Left parasternal area was draped and prepped in a sterile fashion. A 2% lidocaine solution was injected into the surgical site at the 3rd intercostal space. A very small incision was made with the insertion tool. Tract was made again with the insertion tool. Using the implantation tool, the device which is a [employer] Model #[id number] was inserted via this utensil. Serial number on this device is [id number]. Using a sterile sleeve, we were able to pickup QRS complex which was acceptable. Very small wound was brought together using one 4-0 Monocryl stitch. Mastisol and steri-strips were then applied to appose the wound. There was no excessive bleeding. Final programming, the patient is set for a emily limit at 30 which will be picked up and tachycardia limit was decreased from the nominal 182 beats per minutes down to 150 beats per minute to further elucidate her symptoms of palpitations. The patient tolerated the procedure well and should return to the office in a period of 1 to 2 weeks for further evaluation and management. The patient is also received instructions in regards to remote monitoring and wound care instructions. Thank you. Raheel Domínguez MD cc: MD Dr. Joanne Manriquez.
== END 2017-03-30 15:10 | disposition home or self-care (01) ==
LOC: SDSVAS 09:03
PROVIDERS: ATTEND Internal Medicine Cardiovascular Disease
DX: I48.91 Unspecified atrial fibrillation (principal); E03.9 Hypothyroidism, unspecified; E78.5 Hyperlipidemia, unspecified; E11.9 Type 2 diabetes mellitus without complications; E66.01 Morbid (severe) obesity due to excess calories; Z68.38 Body mass index [BMI] 38.0-38.9, adult; Z86.73 Personal history of transient ischemic attack (TIA), and cerebral infarction without residual deficits; Z98.84 Bariatric surgery status; Z79.01 Long term (current) use of anticoagulants
CPT/HCPCS: 33282; 36415; 80048; 80061; 82948; 85025; 85610; 85730; 86850; 86900; C1764; J1644; J7040

== ENCOUNTER 2017-04-01 10:24 | Inpatient (IN) | payer MEDICARE, MEDICAID, OTHER ==
[2017-04-01 10:42] VITALS: BMI 41.3
--- NOTE | 2017-04-01 10:52 | ED PDOC ---
Arrival/HPI - General Time Seen by Provider: 04/01/17 10:42 Historian: Patient - History of Present Illness Narrative History of Present Illness (Text): 04/01/17 10:51 A 51 year old female, whose past medical history includes hyperlipidemia, atrial fibrillation on Eliquis, multiple TIA, anemia, hypothyroidism, bipolar disorder, schizophrenia, fibromyalgia and rheumatoid arthritis, presents to the emergency department complaining of shortness of breath since 1:00 am this morning. Patient notes chills and cough, as well as, vomiting and abdominal discomfort for the past few days. Patient denies any fever, chest pain or any other complaints. Patient denies any recent travel. PMD: Dr. Yip Hemotologist: Dr. Malave Time/Duration: Other (1 am this morning) Symptom Course: Unchanged Quality: Other Context: Home Past Medical History - Provider Review Nursing Documentation Reviewed: Yes - Infectious Disease Hx of Infectious Diseases: None - Tetanus Immunization Tetanus Immunization: Unknown - Cardiac Hx Pacemaker: No - Pulmonary Hx Respiratory Disorders: Yes Hx Pneumonia: Yes Hx Sleep Apnea: Yes - Neurological Hx Paralysis: No - HEENT Hx HEENT Disorder: Yes Other/Comment: gasses - Renal Hx Renal Disorder: Yes Hx Kidney Stones: Yes - Endocrine/Metabolic Hx Diabetes Mellitus Type 2: Yes Hx Hypothyroidism: Yes - Hematological/Oncological Hx Blood Transfusions: Yes (09/2014) Hx Blood Transfusion Reaction: No - Integumentary Hx Dermatological Disorder: No Other/Comment: iron infusions - Musculoskeletal/Rheumatological Hx Musculoskeletal Disorders: Yes - Gastrointestinal Hx Gastrointestinal Disorders: Yes (gi bleed) - Genitourinary/Gynecological Hx Genitourinary Disorders: No - Psychiatric Hx Emotional Abuse: No Hx Physical Abuse: No Hx Substance Use: No - Surgical History Hx Gastric Bypass Surgery: Yes Other/Comment: R chest port for iron infusions and hydration. - Anesthesia Hx Anesthesia Reactions: No Hx Malignant Hyperthermia: No - Suicidal Assessment Feels Threatened In Home Enviroment: No Family/Social History - Physician Review Nursing Documentation Reviewed: Yes Family/Social History: No Known Family HX Smoking Status: Never Smoked Hx Alcohol Use: No Hx Substance Use: No Hx Substance Use Treatment: No Allergies/Home Meds Allergies/Adverse Reactions: Allergies Iodinated Contrast- Oral and IV Dye [Iodinated Contrast Media - IV Dye] Allergy (Verified 04/01/17 10:50) RASH iodine Allergy (Verified 04/01/17 10:50) RASH meperidine Allergy (Verified 04/01/17 10:50) RASH Home Medications: Home Meds Medication Instructions Recorded Confirmed Zolpidem Tartrate [Ambien] 10 mg PO HS 09/12/14 04/01/17 Pregabalin [Lyrica] 50 mg PO BID 04/07/15 04/01/17 Ergocalciferol (Vitamin D2) 50,000 unit PO MON 12/28/15 04/01/17 [Vitamin D2] Atorvastatin [Lipitor] 20 mg PO DAILY 10/02/16 04/01/17 Glucagon [Glucagen Diagnostic Kit] 1 mg IM PRN PRN 10/02/16 04/01/17 clonazePAM [Klonopin] 1 mg PO Q8 PRN 10/02/16 04/01/17 oxyCODONE/Acetaminophen [Percocet 1 tab PO Q8 PRN 10/02/16 04/01/17 5/325 mg Tab] traZODone [Desyrel] 200 mg PO HS 10/02/16 04/01/17 DULoxetine [Cymbalta] 90 mg PO DAILY 12/30/16 04/01/17 Levothyroxine [Synthroid] 175 mcg PO ACB 02/01/17 04/01/17 Folic Acid 1 mg PO BID 03/21/17 04/01/17 Pantoprazole [Protonix EC Tab] 40 mg PO BID 03/21/17 04/01/17 Review of Systems - Physician Review All systems were reviewed & negative as marked: Yes - Review of Systems Constitutional: Night Sweats. absent: Fevers Respiratory: SOB, Cough Cardiovascular: absent: Chest Pain Gastrointestinal: Abdominal Pain, Vomiting Physical Exam Vital Signs Reviewed: Yes Vital Signs Temp Pulse Resp BP Pulse Ox 04/01/17 10:48 99.5 F 108 H 20 131/86 97 Temperature: Afebrile Blood Pressure: Normal Pulse: Tachycardic Respiratory Rate: Normal Appearance: Positive for: Non-Toxic, Comfortable, Other (Weak) Pain Distress: None Mental Status: Positive for: Alert and Oriented X 3 - Systems Exam Head: Present: Atraumatic, Normocephalic Pupils: Present: PERRL Extroacular Muscles: Present: EOMI Conjunctiva: Present: Normal Mouth: Present: Moist Mucous Membranes Neck: Present: Normal Range of Motion Respiratory/Chest: Present: Good Air Exchange, Rhonchi (Left lower lobe rhonchi) , Other (Scar to anterior chest from recent loop recorder, no erythema, swelling or pus). No: Respiratory Distress, Accessory Muscle Use Cardiovascular: Present: Regular Rate and Rhythm, Normal S1, S2. No: Murmurs Abdomen: Present: Normal Bowel Sounds. No: Tenderness, Distention, Peritoneal Signs Back: Present: Normal Inspection Upper Extremity: Present: Normal Inspection, NORMAL PULSES. No: Cyanosis, Edema Lower Extremity: Present: Normal Inspection, NORMAL PULSES. No: Edema, CALF TENDERNESS Neurological: Present: GCS=15, CN II-XII Intact, Speech Normal Skin: Present: Warm, Dry, Normal Color. No: Rashes Psychiatric: Present: Alert, Oriented x 3, Normal Insight, Normal Concentration Medical Decision Making ED Course and Treatment: 04/01/17 10:51 Impression: A 51 year old female with shortness of breath. On exam, left lower lung rhonchi. Differential Diagnosis included but are not limited to: PNA vs. CHF Plan: -- Chest xray -- EKG -- Labs -- Blood and Urine culture -- Urinalysis -- Reassess and disposition Progress Notes: 04/01/17 11:31 Sinus Tachy at [address] changes, no change from previous EKG on 02/01/17 Report Date : 04/01/2017 11:36:48 Procedure: Chest xray Dictator : Iraida Piña MD IMPRESSION: Patchy opacities within the left mid to lower lung zone may reflect atelectasis or infiltrate. Right-sided MediPort. 04/01/17 12:00 Patient was treated with Zosyn and Vanco for Nosocomial PNA. She was admitted about 2 weeks ago her states. Will hydrate. Case discussed with Dr. Malave who agreed with admission. Requested Dr. Sears for consult. - Lab Interpretations Lab Results: 04/01/17 11:27 04/01/17 11:27 Lab Results 04/01/17 11:27: Sodium 146, Chloride 106, Potassium 3.6, Carbon Dioxide 32, Anion Gap 12, BUN 16, Creatinine 0.9, Est GFR ( Amer) > 60, Est GFR (Non- Af Amer) > 60, Random Glucose 88, Calcium 9.2, Phosphorus 1.7 L, Magnesium 1.7, Total Bilirubin 0.4, AST 21, ALT 23, Alkaline Phosphatase 94, Troponin I Pending , NT-Pro-B Natriuret Pep Pending, Total Protein 6.7, Albumin 3.8, Globulin 2.9, Albumin/Globulin Ratio 1.3 04/01/17 11:27: pO2 77 H, VBG pH 7.45 H, VBG pCO2 48.0, VBG HCO3 33.4 H, VBG Total CO2 34.9 H, VBG O2 Sat (Calc) 97.6 H, VBG Base Excess 8.1 H, VBG Potassium 3.5 L, Sodium 145.0, Chloride 109.0 H, Glucose 87, Lactate 1.6, FiO2 21.0, Venous Blood Potassium 3.5 L 04/01/17 11:27: PT 11.1, INR 1.03, APTT 27.5 04/01/17 11:27: WBC 13.8 H D, RBC 3.87, Hgb 11.3 L, Hct 34.8 L, MCV 89.9, MCH 29.2, MCHC 32.5, RDW 17.0 H, Plt Count 265, MPV 9.4, Gran % 92.7 H, Lymph % ( Auto) 2.8 L, [place] % (Auto) 4.3, Eos % (Auto) 0.1 L, Baso % (Auto) 0.1, Gran # 12.78 H, Lymph # 0.4 L, [place] # 0.6, Eos # 0.0, Baso # 0.01, Neutrophils % ( Manual) Pending, Lymphocytes % (Manual) Pending, Monocytes % (Manual) Pending 04/01/17 11:14: Urine Color Light yellow, Urine Appearance Clear, Urine pH 6.5, Ur Specific [place] 1.010, Urine Protein Negative, Urine Glucose (UA) Negative, Urine Ketones Negative, Urine Blood Moderate H, Urine Nitrate Negative, Urine Bilirubin Negative, Urine Urobilinogen 0.2, Ur Leukocyte Esterase Small H, Urine RBC 2 - 5, Urine WBC 2 - 5, Ur Epithelial Cells 1 - 3, Urine Bacteria Trace, Hyaline Casts 0 - 2 I have reviewed the lab results: Yes - RAD Interpretation Radiology Orders: 04/01/17 10:51 CHEST PORTABLE [RAD] Stat - Medication Orders Current Medication Orders: Vancomycin HCl (Vancomycin 1gm) 1 gm in 250 mls @ 167 mls/hr IVPB STAT STA PRN Reason: Protocol Stop: 04/01/17 13:13 Piperacillin Sod/Tazobactam Sod (Zosyn 4.5 Gm In Ns 100ml) 4.5 gm in 100 mls @ 200 mls/hr IVPB STAT STA PRN Reason: Protocol Stop: 04/01/17 12:13 - Scribe Statement The provider has reviewed the documentation as recorded by the Malathi Sewell Provider Scribe Attestation: All medical record entries made by the Scribe were at my direction and personally dictated by me. I have reviewed the chart and agree that the record accurately reflects my personal performance of the history, physical exam, medical decision making, and the department course for this patient. I have also personally directed, reviewed, and agree with the discharge instructions and disposition. Disposition/Present on Arrival - Present on Arrival Any Indicators Present on Arrival: No History of DVT/PE: No History of Uncontrolled Diabetes: No Urinary Catheter: No History Surgical Site Infection Following: None - Disposition Have Diagnosis and Disposition been Completed?: Yes Diagnosis: Pneumonia Disposition: HOSPITALIZED Disposition Time: 12:02 Patient Plan: Admission Condition: GUARDED Referrals: Arnie Yip MD [Primary Care Provider] - Follow up with primary
[2017-04-01 11:19] LABS: PH,URINE 6.5 (4.7-8.0); URINE BILIRUBIN NEGATIVE (NEGATIVE); URINE BLOOD MODERATE (NEGATIVE); URINE GLUCOSE (UA) NEGATIVE (NEGATIVE); URINE KETONE NEGATIVE (NEGATIVE); URINE LEUKOCYTE ESTERASE SMALL Leu/uL (NEGATIVE); URINE PROTEIN NEGATIVE mg/dL (<30 mg/dL); URINE UROBILINOGEN 0.2 E.U./dL (<1 E.U./dL)
[2017-04-01 11:20] LABS: URINE APPEARANCE CLEAR (CLEAR); URINE COLOR LIGHT YELLOW (YELLOW)
[2017-04-01 11:33] LABS: VENOUS BLOOD GAS BASE EXCESS 8.1 mmol/L (0.0-2.0); VENOUS BLOOD PH 7.45 (7.32-7.43)
[2017-04-01 11:38] LABS: BASO # 0.01 K/mm3 (0.0-2.0); BASO % 0.1 % (0.0-3.0); EOS % 0.1 % (1.5-5.0); GRAN # 12.78 (1.4-6.5); GRAN % 92.7 % (50.0-68.0); HEMATOCRIT 34.8 % (36.0-48.0); LYMPH # 0.4 (1.2-3.4); LYMPH % 2.8 % (22.0-35.0); MEAN CELL VOLUME 89.9 fl (80.0-105.0); MEAN CORPUSCULAR HEMOGLOBIN 29.2 pg (25.0-35.0); MEAN CORPUSCULAR HGB CONC 32.5 g/dl (31.0-37.0); MEAN PLATELET VOLUME 9.4 fl (7.0-11.0); MONO # 0.6 (0.1-0.6); MONO % 4.3 % (1.0-6.0); PLATELET COUNT 265 10^3/uL (120.0-450.0); WHITE BLOOD COUNT 13.8 10^3/ul (4.5-11.0)
--- NOTE | 2017-04-01 11:38 | RAD ---
HISTORY: Sepsis Patient COMPARISON: Chest x-ray performed 02/06/17 TECHNIQUE: Chest, one view. FINDINGS: Right-sided central venous catheter extends the SVC. LUNGS: Patchy opacities within the mid left mid to lower lung zone may reflect atelectasis/infiltrate. Biapical pleural thickening. Please note that chest x-ray has limited sensitivity for the detection of pulmonary masses. PLEURA: No significant pleural effusion identified. No definite pneumothorax . CARDIOVASCULAR: Heart size appears within normal limits. OSSEOUS STRUCTURES: Degenerative changes. VISUALIZED UPPER ABDOMEN: Unremarkable. OTHER FINDINGS: None. IMPRESSION: Patchy opacities within the left mid to lower lung zone may reflect atelectasis or infiltrate. Right-sided MediPort.
[2017-04-01 11:40] LABS: URINE BACTERIA TRACE (NEG)
[2017-04-01 11:43] LABS: INR 1.03 (0.93-1.08); PARTIAL THROMBOPLASTIN TIME 27.5 Seconds (23.7-30.8)
[2017-04-01] MEDS ORDERED: Piperacill/Tazo 4.5gm in NS 4.5 GM/100 ML BAG IVPB STA (11:44)
[2017-04-01] MEDS ORDERED: Vancomycin 1gm in NS 250ml 1 GM/250 ML BAG IVPB STA (11:44)
[2017-04-01 11:45] LABS: ALB/GLOB RATIO 1.3 (1.1-1.8); ALKALINE PHOSPHATASE 94 U/L (38-126); ALT/SGPT 23 U/L (7-56); AST/SGOT 21 U/L (14-36); BILIRUBIN,TOTAL 0.4 mg/dL (0.2-1.3); BLOOD UREA NITROGEN 16 mg/dL (7-21); CALCIUM 9.2 mg/dL (8.4-10.5); CARBON DIOXIDE 32 mmol/L (21-33); CHLORIDE 106 mmol/L (98-107); GFR AFRICAN-AMERICAN > 60; GLUCOSE,RANDOM 88 mg/dL (70-110); MAGNESIUM 1.7 mg/dL (1.7-2.2); PHOSPHOROUS 1.7 mg/dL (2.5-4.5); POTASSIUM 3.6 mmol/L (3.6-5.0); SODIUM 146 mmol/L (132-148); TOTAL PROTEIN 6.7 g/dL (5.8-8.3)
[2017-04-01 11:56] LABS: TROPONIN I 0.03 ng/mL
[2017-04-01] MEDS ORDERED: Sodium Chloride 0.9% 1,000 ML IV SCH (12:00)
[2017-04-01 12:15] LABS: BAND 1 % (0-2); LARGE PLATELETS PRESENT; NEUTROPHIL 93 % (50.0-70.0)
[2017-04-01 12:16] LABS: ANISOCYTOSIS SLIGHT; POIKILOCYTOSIS SLIGHT
[2017-04-01] MEDS ORDERED: Pneumococcal 23-Valent Vaccine IM ONE (15:01)
[2017-04-01] MEDS ORDERED: Oxycodone/Acetaminophen 5/325 mg Tab PO PRN (15:07)
[2017-04-01] MEDS: Dextrose 5%/0.45% NS 1,000 ML IV SCH (16:08)
[2017-04-01] MEDS: Pantoprazole 40 mg EC Tab PO SCH (17:17)
[2017-04-01] MEDS: Piperacill/Tazo 4.5gm in NS 4.5 GM/100 ML BAG IVPB SCH (17:30)
[2017-04-01] MEDS ORDERED: Albuterol-Ipratrop 3 mg / 0.5 (3 ml) UD IH PRN (19:24)
--- NOTE | 2017-04-01 22:04 | CARD ---
APPROVED REPORT EKG Measurement Heart [id number] <Conclusion> Sinus tachycardia Nonspecific ST and T wave abnormality Abnormal ECG
[2017-04-02] MEDS: Vancomycin 1gm in NS 250ml 1 GM/250 ML BAG IVPB SCH ×2 (00:11→12:13)
[2017-04-02] MEDS: Piperacill/Tazo 4.5gm in NS 4.5 GM/100 ML BAG IVPB SCH ×4 (00:11→17:10)
--- NOTE | 2017-04-02 00:19 | CON ---
PULMONARY CONSULTATION DATE: 04/01/2017 REFERRING PHYSICIAN: Dr. Malave. REASON FOR CONSULTATION: Cough, shortness of breath, probably aspiration pneumonia, history of sleep apnea syndrome. HISTORY OF PRESENT ILLNESS: This is a 51-year-old obese female with multiple medical issues including gastric bypass surgery in the remote past with anemia with iron deficiency, folic acid deficiency, atrial fibrillation, anticoagulation, history of multiple TIAs, hypothyroid, also has schizophrenia/bipolar disorder, rheumatoid arthritis, fibromyalgia, sleep apnea syndrome, noncompliance with CPAP and BiPAP, apparently has chills, cough, vomiting for the last few days, comes into emergency room, found to have pneumonia, seen by Infectious Disease, started on antibiotics. No hemoptysis, no hematemesis, no hematuria, does have leg swelling. PAST MEDICAL HISTORY: Obesity, gastric bypass surgery, iron-deficiency and folate deficiency anemia, atrial fibrillation, anticoagulation, multiple TIAs, anemia, hypothyroid, bipolar disorder, schizophrenia, fibromyalgia, rheumatoid arthritis, obesity, history of renal insufficiency, history of kidney stone, diabetes, and history of GI bleed. SOCIAL HISTORY: Stopped smoking many years ago. Denies any alcohol use. ALLERGIES: IODINE AND CONTRAST MATERIAL. ALSO ALLERGIC TO MEPERIDINE. FAMILY HISTORY: No significant cardiopulmonary disease reported. MEDICATIONS: She is on Abilify 20 mg at bedtime, Ambien 10 mg at bedtime p.r.n.,Cymbalta 90 mg daily, trazodone 200 mg at bedtime, IV fluids, D5 half normal saline 60 mL/hour, doxycycline 100 mg q. 12 hours, vitamin D one capsule weekly, Eliquis 5 mg twice a day, folic acid 1 mg twice a day, Klonopin 1 mg q. 8 hours p.r.n., Lipitor 20 mg daily, Lyrica 50 mg twice a day, Percocet 5/325 one tab q. 8 hours p.r.n., Protonix 40 mg twice a day, Synthroid 175 mcg , Tylenol on p.r.n. basis, vancomycin 1 g IV q. 12 hours, Zofran 4 mg q. 4 hours p.r.n.,and Zosyn 4.5 g q. 6 hours. REVIEW OF SYSTEMS: No headache, not much rhinitis. Has some cough, nausea and vomiting. No chest pain, no abdominal pain and no dysuria. Does have leg swelling. PHYSICAL EXAMINATION: GENERAL: Lying in the bed, in no acute distress. VITAL SIGNS: Temperature is 99.5, heart rate is 113, respiratory rate is 20, blood pressure is 132/81, and pulse oximetry is 95% on nasal cannula. HEENT: Moist mucous membrane, crowded airway. Mallampati score is IV. NECK: Short thick neck. LUNGS: Scattered rhonchi with fair airflow. HEART: S1 and S2. ABDOMEN: Obese, soft and nontender. EXTREMITIES: There is edema of both lower extremities. NEUROLOGIC: Awake and alert. Follow simple command. LABORATORY DATA: Shows hemoglobin of 11.3, hematocrit of 34.8, WBC of 13.8, and platelet count is 265. INR is 1.03 and PTT is 28. VBG shows pH of 7.45, pCO2 is 48, and O2 of 77. Sodium 146, potassium 3.6, chloride 106, bicarbonate 32, BUN 16, creatinine 0.9, glucose 88, calcium 9.2, phosphorus 1.7 and magnesium 1.7. AST 21 ALT 23, and alkaline phosphatase is 94. ProBNP 1070. Albumin 3.8 and procalcitonin 0.68. Chest x-ray shows patchy opacity within the left [id number] lungs zone, infiltrate versus atelectasis. IMPRESSION AND PLAN: Probably aspiration pneumonia, started probably with stomach virus, has atrial fibrillation, hypothyroid, bipolar disorder/schizophrenia, fibromyalgia, rheumatoid arthritis, obstructive sleep apnea syndrome, history of gastric bypass surgery, diabetes, history of gastrointestinal bleed. I agree with Dr. Malave with the present management. The patient is on IV antibiotics. Continue gastric prophylaxis, anticoagulation, keep head at 45 degrees. We will add Flonase one spray each nostril twice a day. Use inhaled bronchodilator p.r.n. basis. for inhaled steroids. We will place her on bilevel positive airway pressure 10/7 with 30% oxygen while sleeping. Case discussed with Dr. Malave in detail. Thank you and we will follow with you. Gisselle Sears MD [facility] # [id number]
[2017-04-02 06:14] LABS: HEMATOCRIT 32.8 % (36.0-48.0); MEAN CELL VOLUME 89.9 fl (80.0-105.0); MEAN CORPUSCULAR HGB CONC 32.3 g/dl (31.0-37.0); MEAN PLATELET VOLUME 9.5 fl (7.0-11.0); RED CELL DISTRIBUTION WIDTH 17.5 % (11.5-14.5); WHITE BLOOD COUNT 22.6 10^3/ul (4.5-11.0)
[2017-04-02] MEDS: Levothyroxine 175 MCG TAB PO SCH (08:30)
[2017-04-02] MEDS: Dextrose 5%/0.45% NS 1,000 ML IV SCH (08:33)
[2017-04-02] MEDS: Pantoprazole 40 mg EC Tab PO SCH ×2 (09:26→17:09)
--- NOTE | 2017-04-02 14:39 | CON ---
DATE: HISTORY OF PRESENT ILLNESS: The patient is a 51-year-old female with history of bipolar disorder. The patient has multiple medical issues. The patient was admitted to the Medical Side for evaluation of shortness of breath. Psych consult was called for evaluation of medications. 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 Last admission to the Psychiatric Unit was in 2016 for depressive symptoms. The patient was seen and examined today. The patient presented to be sleepy. The patient said that she is compliant with the medications. The patient knows her medication. The patient reported that anniversary of the of her mom was last Monday and she was kind of depressed and upset, while the patient adamantly denied thoughts of killing herself or others. Denied hearing voices, denied seeing things and denied paranoid ideation. MEDICATIONS: Abilify 20 mg at the night time. Klonopin 1 mg three times a day. The patient is also on Cymbalta 90 mg daily. The patient also is on Lyrica 50 mg twice a day, trazodone 20 mg at the night time and Ambien 10 mg at the night time for insomnia. The patient tolerated medications well. LABORATORY DATA: Labs reviewed. WBC 2.6. Prolactin level is elevated 0.68. Urinalysis showed leukocyte esterase small and blood moderate. MENTAL STATUS EXAMINATION: The patient presented to be sleepy, but is very arousable. Flat affect. Speech was under productive and low volume. Mood is described as I am okay now. Affect was constricted. Mood congruent. Thought process is coherent and goal directed. Thought content: The patient denied visual, auditory or tactile hallucination. Denied paranoid ideation. The patient denied both of harming himself or others. Denied intents or plan. Insight and judgement are fair. Impulses are well controlled. IMPRESSION: History of bipolar disorder. Rule out mood disorder due to general medical condition. Rule out adjustment disorder. PLAN: Continue current management and continue current medications. The patient has follow up appointment with [facility]. The patient sees psychiatrist every 2 months. The patient not in any acute distress. The patient pose no imminent danger to self or others and was advised to continue everything as it is and follow up with outpatient psychiatrist. The patient knows if she would feel worse, she should go back to the hospital or call 911. Thank you very much for letting me to participate in the care of your patient. Willa Bergeron MD
--- NOTE | 2017-04-02 16:29 | CON ---
DATE: 04/02/2017 This patient was seen evaluated earlier. REASON FOR CONSULTATION: Abdominal pain, vomiting. HISTORY OF PRESENT ILLNESS: This is a 51-year-old patient with a past medical history of status post gastric bypass, anemia, history of atrial fibrillation, on Eliquis, multiple TIAs, hypothyroidism, schizophrenia, bipolar disorder, rheumatoid arthritis, fibromyalgia, presented with increasing shortness of breath. The patient also was complaining of an abdominal discomfort and vomiting for the past few days. Presently, she is tolerating the liquid diet and she is being treated for probable aspiration pneumonia with antibiotics. The patient was found to have some patchy opacity in the left mid lower zone area. Atelectasis versus infiltrate. This patient has had multiple GI evaluations done in the past. She had endoscopy and colonoscopy done in 2016 and the colonoscopy was a fair preparation. Planned about the elective colonoscopic evaluation. PAST MEDICAL HISTORY: As above. History of chronic kidney disease, kidney stones, diabetes mellitus, anemia. FAMILY HISTORY: Noncontributory. SOCIAL HISTORY: Ex-smoker. Denies alcohol use. ALLERGIES: HE IS ALLERGIC TO IODINE CONTRAST AND ALSO MEPERIDINE. REVIEW OF SYSTEMS: Positive as above. All other systems reviewed, negative. PHYSICAL EXAMINATION: GENERAL: The patient is lying on the bed, not in acute distress. VITAL SIGNS: Temperature 97.6, blood pressure is 96/50, pulse 92, respirations 20, O2 saturation 97%. HEENT: Atraumatic, anicteric. NECK: Supple. HEART: S1 and S2 regular. LUNGS: Bilateral air entry present. ABDOMEN: Soft. There is no tenderness. EXTREMITIES: No edema. No cyanosis. NEUROLOGIC: Alert and oriented. Moves all the extremities. LABORATORY DATA: Hemoglobin 10.6, hematocrit 32.8, WBC count has gone up to 22.6, platelets 270. BMP is 1070. BUN 16, creatinine 09. Chest x-ray findings are described above. IMPRESSION: This is a 51-year-old patient with status post gastric bypass admitted with episodes of vomiting and also shortness of breath, possible pneumonia, being treated for possible aspiration pneumonia. The patient is presently able to tolerate the liquid diet. Other past medical history is significant for anemia status post EGD colonoscopy in 2016. Colon preparation was slightly fair preparation. Recommended colonoscopy. He has history of TIA, atrial fibrillation, on Eliquis. Other comorbidities include hypothyroidism, bipolar disorder, schizophrenia, fibromyalgia and rheumatoid arthritis. RECOMMENDATIONS: 1. We will continue the fair liquid diet and slowly we advance the diet to full liquids. 2. Continue the antibiotics. 3. Would benefit from colonoscopic evaluation electively and we will continue to closely monitor. Her last endoscopy was in 05/2016. It was negative exam status post gastric bypass. Thank you very much for allowing us to participate in the care of the patient. Radhika Sanchez MD
--- NOTE | 2017-04-02 17:07 | CP.PCM.CON ---
History of Present Illness - History of Present Illness History of Present Illness: 51 year old female with PMH of rheumatoid arthritis, history of transient ischemic attack, obstructive sleep apnea, morbid obesity with BMI 41, hypothyroidism, bipolar disorder, shcizoaffective disorder, S/P gastric bypass surgery presented to [facility] [place] [place] complaining of shortness of breath associated with cough, subjective fever and chills for the past 2-3 days. She denies specific sick contacts. She denies headache or dizziness, no chest pain, no SOB, no abdominal pain, no diarrhea, no dysuria. In the ED, CXR was done which showed left sided atelectasis or infiltrates. Infectious Diseases consult is requested to further evaluate and manage. Review of Systems - Review of Systems All systems: reviewed and no additional remarkable complaints except (as per HPI ) Past Patient History - Infectious Disease Hx of Infectious Diseases: None - Tetanus Immunizations Tetanus Immunization: Unknown - Past Social History Smoking Status: Never Smoked - CARDIAC Hx Cardia Arrhythmia: Yes (afib) Hx Hypercholesterolemia: Yes Hx Hypertension: Yes Hx Pacemaker: No Hx Peripheral Edema: Yes (ble +2 edema) Other/Comment: loop recorder, [employer], placed by dr brown 03/30/17 for palpitations and a fib - PULMONARY Hx Respiratory Disorders: Yes Hx Asthma: Yes Hx Pneumonia: Yes Hx Sleep Apnea: Yes (does not tolerated bipap) - NEUROLOGICAL Hx Neurological Disorder: Yes (syncope) HX Cerebrovascular Accident: Yes Hx Dizziness: Yes - HEENT Hx HEENT Problems: Yes (eyeglasses) - RENAL Hx Chronic Kidney Disease: Yes Hx Kidney Stones: Yes - ENDOCRINE/METABOLIC Hx Diabetes Mellitus Type 2: Yes Hx Hypothyroidism: Yes - HEMATOLOGICAL/ONCOLOGICAL Hx Blood Disorders: Yes Hx Anemia: Yes (iron deficiency) Other/Comment: blood transfusion 09/2014, iron infusions - INTEGUMENTARY Other/Comment: mid chest steri strips intact loop recorded implanted, multiple round brown spots ble - MUSCULOSKELETAL/RHEUMATOLOGICAL Hx Falls: No - GASTROINTESTINAL Hx Gastrointestinal Disorders: Yes (gi bleed, obese) Hx Gastroesophageal Reflux: Yes - GENITOURINARY/GYNECOLOGICAL Hx Genitourinary Disorders: No - PSYCHIATRIC Hx Substance Use: No - SURGICAL HISTORY Hx Gastric Bypass Surgery: Yes (07/26/1999 235 lb weight loss) Other/Comment: R chest port for iron infusions and hydration. - ANESTHESIA Hx Anesthesia Reactions: No Hx Malignant Hyperthermia: No Meds Allergies/Adverse Reactions: Allergies Allergy/AdvReac Type Severity Reaction Status Date / Time Iodinated Contrast- Oral and Allergy RASH Verified 04/01/17 10:50 IV Dye [Iodinated Contrast Media - IV Dye] iodine Allergy RASH Verified 04/01/17 10:50 meperidine Allergy RASH Verified 04/01/17 10:50 - Medications Medications: Current Medications Acetaminophen (Tylenol 325mg Tab) 650 mg PO Q4H PRN PRN Reason: Fever >100.5 F Apixaban (Eliquis) 5 mg PO BID KEITH PRN Reason: Protocol Aripiprazole (Abilify) 20 mg PO HS KEITH PRN Reason: Protocol Atorvastatin Calcium (Lipitor) 20 mg PO DAILY KEITH Clonazepam (Klonopin) 1 mg PO Q8 PRN; Protocol PRN Reason: Anxiety Duloxetine HCl (Cymbalta) 90 mg PO DAILY [facility] Ergocalciferol (Drisdol 50,000 Intl Units Cap) 1 cap PO MON KEITH Folic Acid (Folic Acid) 1 mg PO BID [facility] Sodium Chloride (Sodium Chloride 0.9%) 1,000 mls @ 200 mls/hr IV .Q5H [facility] Last Admin: 04/01/17 12:16 Dose: 200 mls/hr Dextrose/Sodium Chloride (Dextrose 5%/0.45% Ns 1000 Ml) 1,000 mls @ 60 mls/hr IV .[id number] [facility] Last Admin: 04/01/17 16:08 Dose: 60 mls/hr Vancomycin HCl (Vancomycin 1gm) 1 gm in 250 mls @ 167 mls/hr IVPB Q12H KEITH PRN Reason: Protocol Piperacillin Sod/Tazobactam Sod (Zosyn 4.5 Gm In Ns 100ml) 4.5 gm in 100 mls @ 200 mls/hr IVPB Q6 KEITH PRN Reason: Protocol Stop: 04/08/17 18:01 Doxycycline Hyclate 100 mg/ (Sodium Chloride) 100 mls @ 100 mls/hr IVPB Q12 KEITH PRN Reason: Protocol Levothyroxine Sodium (Synthroid) 175 mcg PO ACB KEITH Ondansetron HCl (Zofran Inj) 4 mg IVP Q4H PRN PRN Reason: Nausea/Vomiting Oxycodone/Acetaminophen (Percocet 5/325 Mg Tab) 1 tab PO Q8 PRN PRN Reason: Pain, moderate (4-7) Stop: 04/04/17 15:08 Pantoprazole Sodium (Protonix Ec Tab) 40 mg PO BID KEITH Pregabalin (Lyrica) 50 mg PO BID KEITH Trazodone HCl (Desyrel) 200 mg PO HS KEITH Zolpidem Tartrate (Ambien) 10 mg PO HS PRN; Protocol PRN Reason: Sleep Physical Exam - Constitutional Appears: Non-toxic, No Acute Distress - Head Exam Head Exam: NORMAL INSPECTION - ENT Exam ENT Exam: Mucous Membranes Moist - Neck Exam Neck exam: Negative for: Meningismus - Respiratory Exam Respiratory Exam: Decreased Breath Sounds - Cardiovascular Exam Cardiovascular Exam: +S1, +S2 - GI/Abdominal Exam GI & Abdominal Exam: Soft. absent: Tenderness Results - Vital Signs Recent Vital Signs: Last Vital Signs Temp 99.5 F 04/01/17 14:44 Pulse 113 H 04/01/17 14:44 Resp 19 04/01/17 14:44 BP 132/81 04/01/17 14:44 Pulse Ox 95 04/01/17 14:12 - Labs Result Diagrams: 04/02/17 06:00 04/01/17 11:27 Assessment & Plan - Assessment and Plan (Free Text) Plan: Assessment consider sepsis due to left sided HCAP history of sepsis due to MRSA bacteremia, probably from port-a-cath S/P removal history of HCAP rheumatoid arthritis history of transient ischemic attack obstructive sleep apnea Morbid obesity with BMI 40 hypothyroidism bipolar disorder shcizoaffective disorder, S/P gastric bypass surgery Plan started patient on Vancomycin, Zosyn and Doxycycline pending blood, sputum cx; PCT is somewhat elevated at 0.68 - will trend; reviewed CXR will monitor clinically
--- NOTE | 2017-04-02 17:47 | PN ---
DATE: 04/02/2017 PULMONARY PROGRESS NOTE REFERRING PHYSICIAN: Dr. Malave. SUBJECTIVE: She is up going to the bathroom. Night was unremarkable. Breathing is better. Decreased cough. Decreased shortness of breath. No chest pain. No nausea, vomiting, or diarrhea. Decreased leg swelling. PHYSICAL EXAMINATION: GENERAL: No acute distress. VITAL SIGNS: Temperature is 98, heart rate is 92, respiratory rate is 20, blood pressure 96/50, and pulse ox is 97% on room air. HEENT: Moist mucous membrane. Crowded airway. Mallampati score is IV. NECK: Supple. No JVD. LUNGS: Has few crackles at the bases. HEART: S1 and S2. ABDOMEN: Soft and nontender. No organomegaly. EXTREMITIES: No edema. NEUROLOGICAL: Awake and alert. Follows simple commands. LABORATORY DATA: Shows hemoglobin 10.6, hematocrit 32.8, white blood count 22.6, and platelet is 270,000. Microbiology, blood culture, urine culture, there is no growth. MEDICATIONS: She is on Abilify 20 mg daily, Ambien 10 mg at bedtime p.r.n., Cymbalta 90 mg daily, trazodone 200 mg at bedtime, IV fluid D5 half normal saline 60 mL/hour, doxycycline 100 mg twice a day, vitamin D 50,000 units weekly, Albuterol/Atrovent nebulizer q. 6 hours p.r.n., Eliquis 5 mg daily, Flonase 1 spray each nostril daily, folic acid 1 mg daily, Klonopin 1 mg q. 8 hours p.r.n., Lipitor 20 mg daily, Lyrica 50 mg twice a day, Percocet 5/325 one tab q. 8 hours p.r.n., Protonix 40 mg twice a day, Synthroid 175 mcg daily, Tylenol on p.r.n. basis, vancomycin 1 g IV q. 12 hours, Zofran p.r.n. basis, and Zosyn 4.5 g q. 6 hours. IMPRESSION AND PLAN: Aspiration pneumonia started with vomiting, could be viral syndrome, atrial fibrillation, hypothyroid, bipolar disorder, schizophrenia, fibromyalgia, rheumatoid arthritis, obstructive sleep apnea syndrome, history of gastric by surgery, diabetes, and history of gastrointestinal bleed. Case discussed with Dr. Malave. Spoke to nursing staff. Continue antibiotics, bronchodilator, keep head at 45 degrees, gastric prophylaxis, anticoagulation, and fall precaution. Followup labs in the morning. Thank you and we will follow with you. Gisselle Sears MD
--- NOTE | 2017-04-02 21:55 | PN ---
DATE: 04/02/2017 LOCATION: The patient is in room #361, bed #2. SUBJECTIVE: The patient is sitting out of bed, going to the bathroom. Night was unremarkable. Earlier today, blood pressure was very low, the nurse was concerned and conveyed the information to me. Her blood pressure was 96/76. She asked me to review her medicines to see we can cut back as the patient is very sleepy. Breathing is better. The patient has decreased cough, decreased shortness of breath, no chest pain, nausea or vomiting. Decreased leg swelling. No fevers and no chills. PHYSICAL EXAMINATION: GENERAL: The patient is awake, alert and oriented, in no acute distress. VITAL SIGNS: Stable. T max is 98.4, heart rate is 92, respiration is 20, blood pressure is 96/50 and pulse ox is 97% on room air. HEENT: Head is normocephalic and atraumatic. Conjunctivae is pale. Sclerae is anicteric. Pupils are equally reactive to light and accommodation. Examination of the oropharynx reveals no oropharyngeal lesions. Tongue is moist. No ulcerations are noted. NECK: Supple. There is no adenopathy. No jugular venous distention noted. LUNGS: Reveal few crackles at the bases. HEART: Reveals PMI to be in fifth intercostal space inside the midclavicular line. S1 and S2 normal. No gallop or murmur is heard. ABDOMEN: Soft, protuberant, and nontender. Liver and spleen are not palpable. Previously noted epigastric tenderness has dissipated. EXTREMITIES: Reveals no cyanosis, clubbing or edema. Higher functions are normal. NEUROLOGIC: No focal deficits are noted. LYMPHS: Examination of the neck, axilla and groin reveals no adenopathy. MEDICATIONS: The patient's medications are reviewed. She is on Abilify, 20 mg daily, Ambien 10 mg at bedtime, Cymbalta 90 mg daily, trazodone 200 mg at bedtime, IV fluid at 60 mL/hour, she is on doxycycline 100 mg twice a day for left lower lobe infiltrate, vitamin D 50,000 units once a week, Albuterol/Atrovent nebulizer q. 6 hours, Eliquis 5 mg daily, Flonase 1 spray to each nostril daily, folic acid 1 mg daily, Klonopin 1 mg q. 8 hours p.r.n., Lipitor 20 mg daily, Lyrica 50 mg twice a day, Percocet p.r.n., Protonix 40 mg twice daily, Synthroid 175 mcg daily, Tylenol p.r.n., the patient is also on vancomycin 1 g IV q. 12 hours as per ID recommendation, Zofran p.r.n. basis, and the patient is also on Zosyn 4.5 g q. 6 hours. ASSESSMENT NOTES AND PLAN: The patient has left-sided pneumonia with an elevated white count, aspiration is a possibility at this point in time, viral syndrome, atrial fibrillation, hypothyroidism, bipolar disorder, schizophrenia, fibromyalgia, rheumatoid arthritis, obstructive sleep apnea, history of gastric bypass surgery, diabetes, and history of gastrointestinal bleed. Case discussed with Dr. Sanchez. Reviewed the endoscopy done last year. The patient does have gastroparesis and since she has had gastric bypass surgery, the type of food that she should be having, as she does not have recurrent nausea or vomiting, would be small frequent meals and she should have a mechanical soft diet. I explained this very clearly to the patient so that she does not get repeated admissions to the hospital. I explained that also to her and they are in agreement for now that what they are going to do. I am going to wait for the patient to get better and then we will plan for another upper endoscopy this year as an outpatient per Dr. Sanchez. The patient will also get B12 1 mL injection today. Routine labs for a.m. has been requested.. Betzy Malave MD
[2017-04-03] MEDS: Piperacill/Tazo 4.5gm in NS 4.5 GM/100 ML BAG IVPB SCH ×5 (00:19→23:57)
[2017-04-03] MEDS: Vancomycin 1gm in NS 250ml 1 GM/250 ML BAG IVPB SCH (00:26)
[2017-04-03 07:10] LABS: BASO # 0.03 K/mm3 (0.0-2.0); BASO % 0.2 % (0.0-3.0); EOS # 0.5 (0.0-0.7); EOS % 3.8 % (1.5-5.0); GRAN # 9.55 (1.4-6.5); HEMATOCRIT 29.4 % (36.0-48.0); LYMPH # 2.1 (1.2-3.4); LYMPH % 16.1 % (22.0-35.0); MEAN CELL VOLUME 90.7 fl (80.0-105.0); MEAN CORPUSCULAR HEMOGLOBIN 28.4 pg (25.0-35.0); MEAN CORPUSCULAR HGB CONC 31.3 g/dl (31.0-37.0); MEAN PLATELET VOLUME 9.8 fl (7.0-11.0); MONO # 0.8 (0.1-0.6); MONO % 5.9 % (1.0-6.0); RED CELL DISTRIBUTION WIDTH 17.3 % (11.5-14.5); WHITE BLOOD COUNT 12.9 10^3/ul (4.5-11.0)
[2017-04-03 07:19] LABS: ALB/GLOB RATIO 1.1 (1.1-1.8); ALKALINE PHOSPHATASE 71 U/L (38-126); ALT/SGPT 24 U/L (7-56); AST/SGOT 15 U/L (14-36); BILIRUBIN,TOTAL 0.2 mg/dL (0.2-1.3); BLOOD UREA NITROGEN 14 mg/dL (7-21); CALCIUM 7.9 mg/dL (8.4-10.5); CARBON DIOXIDE 29 mmol/L (21-33); CHLORIDE 106 mmol/L (98-107); GFR AFRICAN-AMERICAN > 60; GLUCOSE,RANDOM 76 mg/dL (70-110); POTASSIUM 3.4 mmol/L (3.6-5.0); SODIUM 143 mmol/L (132-148); TOTAL PROTEIN 5.7 g/dL (5.8-8.3)
--- NOTE | 2017-04-03 07:26 | HP ---
DATE: 04/02/2017 HISTORY OF PRESENT ILLNESS: This 51-year-old obese female with multiple medical issues is admitted to the emergency room with progressive cough, shortness of breath, fevers, and chills, and findings in the ER on the x-rays done including CAT scan showing infiltrate in the left lower lobe along with an elevated count suggestive of pneumonia, whether aspiration or otherwise remains to be proven. Patient does have history of sleep apnea syndrome. Patient has a long medical history with multiple comorbid issues, status post gastric bypass surgery in the remote past with anemia, iron deficiency, folic acid deficiency, atrial fibrillation, history of multiple TIAs; on anticoagulation, hypothyroidism, and also had remote issues of pituitary surgery as well, has had schizophrenia, bipolar disorder, rheumatoid arthritis, fibromyalgia, sleep apnea syndrome, is now admitted through the emergency room with chills, coughing, intermittent nausea and vomiting while at the emergency room. PAST MEDICAL HISTORY: Significant for obesity, gastric bypass surgery done more than 17-18 years ago, iron deficiency, folate deficiency, atrial fibrillation; on anticoagulation, multiple TIAs, anemia, hypothyroidism, bipolar disorder, schizophrenia, fibromyalgia, rheumatoid arthritis, obesity, history of renal insufficiency with history of kidney stones, diabetes, and history of GI bleed. SOCIAL HISTORY: The patient stopped smoking many years ago. Denies any alcohol abuse. ALLERGIES: PATIENT IS ONLY ALLERGIC TO MEPERIDINE. ALLERGIES TO IODINE AND CONTRAST MATERIAL WELL. MEDICATIONS: Patient is on Abilify 20 mg at bedtime, Ambien 10 mg at bedtime, Cymbalta 90 mg daily, trazodone 200 mg at bedtime. Patent is on IV fluids, D5 and half normal saline at 60 mL an hour, doxycycline 100 mg every 12 hours, vitamin D one capsule once a week, Eliquis 5 mg b.i.d., folic acid 1 mg twice a day, Klonopin 1 mg q. 8 hours p.r.n., Lipitor 20 mg daily, Lyrica 50 mg twice daily. Patient is on Percocet 1 tablet q. 8 hours, Protonix 40 daily, Synthroid 175 mcg daily, Tylenol p.r.n., vancomycin 1 g IV q. 12 hours, Zofran 4 mg q. 4 hours p.r.n., and Zosyn 4.5 g q. 6 hours. REVIEW OF SYSTEMS: Patient denies any history of headache or sinusitis. Some cough, nausea, and vomiting. No chest pain. No abdominal pain. No dysuria. Patient does have leg swelling. PHYSICAL EXAMINATION: GENERAL: Patient is awake, alert and oriented. Patient is lying in bed in no significant distress. VITAL SIGNS: Stable. T-max is 99, heart rate is 113, respirations 20, blood pressure 132/81, pulse ox is 95% on nasal cannula. HEENT: Head is normocephalic and atraumatic. Conjunctivae pale. Sclerae anicteric. Pupils are equally reactive to light and accommodation. Examination of the oropharynx reveals crowded airways. Moist mucous membranes. Tongue is moist. No ulcerations of the tongue is noted. NECK: Supple. There is no adenopathy. LUNGS: Reveal scattered wheezes and rhonchi bilaterally. HEART: Reveals PMI to be in fifth intercostal space inside the midclavicular line. S1 and S2 normal. No gallop or murmur is heard. EXTREMITIES: Reveals no cyanosis, clubbing or edema. NEUROLOGIC: Patient is awake, and alert. Follows simple commands. LABORATORY DATA: Reveals hemoglobin of 11.3, hematocrit 34.8, white count is 13.8, platelet count is 265,000. INR is 1.03, PTT is 28. VBG shows pH of 7.45, PCO2 of 48, PO2 of 77. Sodium is 146, potassium 3.6, chloride 106, bicarbonate 32, BUN is 16, creatinine 0.6, glucose is 88, and calcium is 9.2. Magnesium is 1.7, AST and ALT are normal. Alkaline phosphate is 94. ProBNP is 1070. Albumin is 3.8 and procalcitonin 0.68. Chest X-ray shows patchy infiltrate suggestive of aspiration pneumonia. ASSESSMENT NOTES AND PLAN: The patient has probably aspiration pneumonia, problem with the stomach, but the patient has atrial fibrillation, hypothyroidism, bipolar disorder with schizophrenia, fibromyalgia, rheumatoid arthritis, sleep apnea syndrome. Continue the patient with current prophylaxis with anticoagulation . Use inhaled bronchodilators. We will continue current medications. I will ask Dr. Sanchez to also look at her to see if her diet could be modified so she does not have these intermediate episodes of nausea and vomiting, which is incompetent to the fact, but she also has gastroparesis. Routine post-exam instructions have been given to the patient. The patient will be seen by me again tomorrow. Betzy Malave MD
[2017-04-03] MEDS: Fluticasone Nasal 50 mcg/Spray NS SCH (09:25)
[2017-04-03] MEDS: Pantoprazole 40 mg EC Tab PO SCH ×2 (09:26→17:24)
[2017-04-03] MEDS: Levothyroxine 175 MCG TAB PO SCH (09:26)
[2017-04-03] MEDS ORDERED: Ergocalciferol 50,000 Intl Units Cap PO SCH (10:00)
[2017-04-03] MEDS ORDERED: Potassium Chloride 20 mEq ER Tab PO SCH (12:15)
--- NOTE | 2017-04-03 12:21 | CP.PCM.PN ---
<Bee Pickens - Last Filed: 04/03/17 12:16> Subjective - Date & Time of Evaluation Date of Evaluation: 04/03/17 Time of Evaluation: 10:00 - Subjective Subjective: Seen and examined at the bedside earlier today, no acute overnight events reported. Patient tolerated the soft diet, no reports of nausea, vomiting, or abdominal pain. Objective - Vital Signs/Intake and Output Vital Signs (last 24 hours): Temp Pulse Resp BP Pulse Ox 98.5 F 70 20 109/63 96 04/03/17 07:41 04/03/17 07:41 04/03/17 07:41 04/03/17 07:41 04/03/17 07:41 Intake and Output: 04/03/17 04/03/17 06:59 18:59 Intake Total 120 Balance 120 - Medications Medications: Current Medications Acetaminophen (Tylenol 325mg Tab) 650 mg PO Q4H PRN PRN Reason: Fever >100.5 F Albuterol/Ipratropium (Duoneb 3 Mg/0.5 Mg (3 Ml) Ud) 3 ml IH [id number] PRN PRN Reason: Cough Apixaban (Eliquis) 5 mg PO BID [facility] PRN Reason: Protocol Last Admin: 04/03/17 09:24 Dose: 5 mg Aripiprazole (Abilify) 20 mg PO HS [facility] PRN Reason: Protocol Last Admin: 04/02/17 22:35 Dose: 20 mg Atorvastatin Calcium (Lipitor) 20 mg PO DAILY [facility] Last Admin: 04/03/17 09:26 Dose: 20 mg Clonazepam (Klonopin) 1 mg PO Q8 PRN; Protocol PRN Reason: Anxiety Last Admin: 04/02/17 22:36 Dose: 1 mg Duloxetine HCl (Cymbalta) 90 mg PO DAILY [facility] Last Admin: 04/03/17 09:24 Dose: 90 mg Ergocalciferol (Drisdol 50,000 Intl Units Cap) 1 cap PO MON [facility] Last Admin: 04/03/17 09:24 Dose: 1 cap Fluticasone Propionate (Flonase) 1 actuation NS DAILY [facility] Last Admin: 04/03/17 09:25 Dose: 1 applic Folic Acid (Folic Acid) 1 mg PO BID [facility] Last Admin: 04/03/17 09:25 Dose: 1 mg Dextrose/Sodium Chloride (Dextrose 5%/0.45% Ns 1000 Ml) 1,000 mls @ 60 mls/hr IV .[id number] [facility] Last Admin: 04/02/17 08:33 Dose: 60 mls/hr Piperacillin Sod/Tazobactam Sod (Zosyn 4.5 Gm In Ns 100ml) 4.5 gm in 100 mls @ 200 mls/hr IVPB Q6 [facility] PRN Reason: Protocol Stop: 04/08/17 18:01 Last Admin: 04/03/17 06:02 Dose: 200 mls/hr Doxycycline Hyclate 100 mg/ (Sodium Chloride) 100 mls @ 100 mls/hr IVPB Q12 [facility] PRN Reason: Protocol Last Admin: 04/03/17 09:27 Dose: 100 mls/hr Levothyroxine Sodium (Synthroid) 175 mcg PO ACB [facility] Last Admin: 04/03/17 09:26 Dose: 175 mcg Ondansetron HCl (Zofran Inj) 4 mg IVP Q4H PRN PRN Reason: Nausea/Vomiting Oxycodone/Acetaminophen (Percocet 5/325 Mg Tab) 1 tab PO Q8 PRN PRN Reason: Pain, moderate (4-7) Stop: 04/04/17 15:08 Last Admin: 04/02/17 05:44 Dose: 1 tab Pantoprazole Sodium (Protonix Ec Tab) 40 mg PO BID [facility] Last Admin: 04/03/17 09:26 Dose: 40 mg Pregabalin (Lyrica) 50 mg PO BID [facility] Last Admin: 04/02/17 09:26 Dose: 50 mg Trazodone HCl (Desyrel) 200 mg PO HS [facility] Last Admin: 04/01/17 22:15 Dose: 200 mg Zolpidem Tartrate (Ambien) 10 mg PO HS PRN; Protocol PRN Reason: Sleep Last Admin: 04/02/17 22:36 Dose: 10 mg - Labs Labs: 04/03/17 06:40 04/03/17 06:40 PT 11.1 Seconds (9.9-11.8) 04/01/17 11:27 INR 1.03 (0.93-1.08) 04/01/17 11:27 APTT 27.5 Seconds (23.7-30.8) 04/01/17 11:27 Assessment and Plan - Assessment and Plan (Free Text) Assessment: Assessment: 51-year-old female with history of gastric bypass came with episodes of vomiting and shortness of breath possible aspiration pneumonia History of anemia History of atrial fibrillation on follow up with History of TIA Rheumatoid arthritis Bipolar disorder Plan: Discussed with patient regarding GI series with small bowel tomorrow in a.m. NPO except meds after midnight for GI series in a.m. Continue IV antibiotics Patient would benefit from colonoscopic evaluation, last endoscopy was 05/2016 it was a negative exam status post gastric bypass. Her last colonoscopy was a fair preparation. On Eliquis Continue PPI Seen and discussed with Dr. Sanchez. <Radhika Sanchez V - Last Filed: 04/03/17 18:23> Objective - Vital Signs/Intake and Output Vital Signs (last 24 hours): Temp Pulse Resp BP Pulse Ox 98.5 F 70 20 109/63 96 04/03/17 07:41 04/03/17 07:41 04/03/17 07:41 04/03/17 07:41 04/03/17 07:41 Intake and Output: 04/03/17 04/03/17 06:59 18:59 Intake Total 120 Balance 120 - Medications Medications: Current Medications Acetaminophen (Tylenol 325mg Tab) 650 mg PO Q4H PRN PRN Reason: Fever >100.5 F Albuterol/Ipratropium (Duoneb 3 Mg/0.5 Mg (3 Ml) Ud) 3 ml IH [id number] PRN PRN Reason: Cough Apixaban (Eliquis) 5 mg PO BID [facility] PRN Reason: Protocol Last Admin: 04/03/17 17:23 Dose: 5 mg Aripiprazole (Abilify) 20 mg PO HS [facility] PRN Reason: Protocol Last Admin: 04/02/17 22:35 Dose: 20 mg Atorvastatin Calcium (Lipitor) 20 mg PO DAILY [facility] Last Admin: 04/03/17 09:26 Dose: 20 mg Clonazepam (Klonopin) 1 mg PO Q8 PRN; Protocol PRN Reason: Anxiety Last Admin: 04/03/17 12:20 Dose: 1 mg Duloxetine HCl (Cymbalta) 90 mg PO DAILY [facility] Last Admin: 04/03/17 09:24 Dose: 90 mg Ergocalciferol (Drisdol 50,000 Intl Units Cap) 1 cap PO MON [facility] Last Admin: 04/03/17 09:24 Dose: 1 cap Fluticasone Propionate (Flonase) 1 actuation NS DAILY [facility] Last Admin: 04/03/17 09:25 Dose: 1 applic Folic Acid (Folic Acid) 1 mg PO BID [facility] Last Admin: 04/03/17 17:24 Dose: 1 mg Dextrose/Sodium Chloride (Dextrose 5%/0.45% Ns 1000 Ml) 1,000 mls @ 60 mls/hr IV .[id number] [facility] Last Admin: 04/02/17 08:33 Dose: 60 mls/hr Piperacillin Sod/Tazobactam Sod (Zosyn 4.5 Gm In Ns 100ml) 4.5 gm in 100 mls @ 200 mls/hr IVPB Q6 [facility] PRN Reason: Protocol Stop: 04/08/17 18:01 Last Admin: 04/03/17 17:24 Dose: 200 mls/hr Doxycycline Hyclate 100 mg/ (Sodium Chloride) 100 mls @ 100 mls/hr IVPB Q12 [facility] PRN Reason: Protocol Last Admin: 04/03/17 09:27 Dose: 100 mls/hr Levothyroxine Sodium (Synthroid) 175 mcg PO ACB [facility] Last Admin: 04/03/17 09:26 Dose: 175 mcg Ondansetron HCl (Zofran Inj) 4 mg IVP Q4H PRN PRN Reason: Nausea/Vomiting Oxycodone/Acetaminophen (Percocet 5/325 Mg Tab) 1 tab PO Q8 PRN PRN Reason: Pain, moderate (4-7) Stop: 04/04/17 15:08 Last Admin: 04/02/17 05:44 Dose: 1 tab Pantoprazole Sodium (Protonix Ec Tab) 40 mg PO BID [facility] Last Admin: 04/03/17 17:24 Dose: 40 mg Pregabalin (Lyrica) 50 mg PO BID [facility] Last Admin: 04/02/17 09:26 Dose: 50 mg Trazodone HCl (Desyrel) 200 mg PO HS [facility] Last Admin: 04/01/17 22:15 Dose: 200 mg Zolpidem Tartrate (Ambien) 10 mg PO HS PRN; Protocol PRN Reason: Sleep Last Admin: 04/02/17 22:36 Dose: 10 mg - Labs Labs: 04/03/17 06:40 04/03/17 06:40 PT 11.1 Seconds (9.9-11.8) 04/01/17 11:27 INR 1.03 (0.93-1.08) 04/01/17 11:27 APTT 27.5 Seconds (23.7-30.8) 04/01/17 11:27 Attending/Attestation - Attestation I have personally seen and examined this patient.: Yes I have fully participated in the care of the patient.: Yes I have reviewed all pertinent clinical information, including history, physical exam and plan: Yes Notes (Text): This is an addendum to GI progress report dictated by Bee Pickens APN.The patient was seen and examined earlier. Medical records, lab studies, imagings were reviewed. Last 24 hours events reviewed. Agreed with the above treatment plan as outlined in Bee Pickens APN's notes the with the addition of the following On examination abdomen soft and is no tenderness. Patient is tolerating diet. Patient admitted the pneumonia and probable aspiration history of episodes of vomiting. Discussed with the patient length, agreeable for GI series. will schedule it in a.m. recommend soft diet chew well. 04/03/17 18:21
--- NOTE | 2017-04-03 15:59 | CP.PCM.PN ---
Subjective - Date & Time of Evaluation Date of Evaluation: 04/03/17 Time of Evaluation: 10:20 - Subjective Subjective: Comfortable, not in distress, afebrile, less cough, breathing better. Objective - Vital Signs/Intake and Output Vital Signs (last 24 hours): Temp Pulse Resp BP Pulse Ox 98.5 F 70 20 109/63 96 04/03/17 07:41 04/03/17 07:41 04/03/17 07:41 04/03/17 07:41 04/03/17 07:41 Intake and Output: 04/03/17 04/03/17 06:59 18:59 Intake Total 120 Balance 120 - Medications Medications: Current Medications Acetaminophen (Tylenol 325mg Tab) 650 mg PO Q4H PRN PRN Reason: Fever >100.5 F Albuterol/Ipratropium (Duoneb 3 Mg/0.5 Mg (3 Ml) Ud) 3 ml IH [id number] PRN PRN Reason: Cough Apixaban (Eliquis) 5 mg PO BID [facility] PRN Reason: Protocol Last Admin: 04/02/17 17:10 Dose: 5 mg Aripiprazole (Abilify) 20 mg PO HS [facility] PRN Reason: Protocol Last Admin: 04/02/17 22:35 Dose: 20 mg Atorvastatin Calcium (Lipitor) 20 mg PO DAILY [facility] Last Admin: 04/02/17 09:26 Dose: 20 mg Clonazepam (Klonopin) 1 mg PO Q8 PRN; Protocol PRN Reason: Anxiety Last Admin: 04/02/17 22:36 Dose: 1 mg Duloxetine HCl (Cymbalta) 90 mg PO DAILY [facility] Last Admin: 04/02/17 09:27 Dose: 90 mg Ergocalciferol (Drisdol 50,000 Intl Units Cap) 1 cap PO MON [facility] Fluticasone Propionate (Flonase) 1 actuation NS DAILY [facility] Folic Acid (Folic Acid) 1 mg PO BID [facility] Last Admin: 04/02/17 17:10 Dose: 1 mg Dextrose/Sodium Chloride (Dextrose 5%/0.45% Ns 1000 Ml) 1,000 mls @ 60 mls/hr IV .[id number] [facility] Last Admin: 04/02/17 08:33 Dose: 60 mls/hr Piperacillin Sod/Tazobactam Sod (Zosyn 4.5 Gm In Ns 100ml) 4.5 gm in 100 mls @ 200 mls/hr IVPB Q6 [facility] PRN Reason: Protocol Stop: 04/08/17 18:01 Last Admin: 04/03/17 06:02 Dose: 200 mls/hr Doxycycline Hyclate 100 mg/ (Sodium Chloride) 100 mls @ 100 mls/hr IVPB Q12 [facility] PRN Reason: Protocol Last Admin: 04/02/17 22:58 Dose: 100 mls/hr Potassium Chloride (Potassium Chloride 10 Meq/100 Ml) 10 meq in 100 mls @ 100 mls/hr IVPB Q2H [facility] Stop: 04/03/17 11:59 Levothyroxine Sodium (Synthroid) 175 mcg PO ACB [facility] Last Admin: 04/02/17 08:30 Dose: 175 mcg Ondansetron HCl (Zofran Inj) 4 mg IVP Q4H PRN PRN Reason: Nausea/Vomiting Oxycodone/Acetaminophen (Percocet 5/325 Mg Tab) 1 tab PO Q8 PRN PRN Reason: Pain, moderate (4-7) Stop: 04/04/17 15:08 Last Admin: 04/02/17 05:44 Dose: 1 tab Pantoprazole Sodium (Protonix Ec Tab) 40 mg PO BID [facility] Last Admin: 04/02/17 17:09 Dose: 40 mg Pregabalin (Lyrica) 50 mg PO BID [facility] Last Admin: 04/02/17 09:26 Dose: 50 mg Trazodone HCl (Desyrel) 200 mg PO HS [facility] Last Admin: 04/01/17 22:15 Dose: 200 mg Zolpidem Tartrate (Ambien) 10 mg PO HS PRN; Protocol PRN Reason: Sleep Last Admin: 04/02/17 22:36 Dose: 10 mg - Labs Labs: 04/03/17 06:40 04/03/17 06:40 PT 11.1 Seconds (9.9-11.8) 04/01/17 11:27 INR 1.03 (0.93-1.08) 04/01/17 11:27 APTT 27.5 Seconds (23.7-30.8) 04/01/17 11:27 - Constitutional Appears: Non-toxic, No Acute Distress - Head Exam Head Exam: NORMAL INSPECTION - ENT Exam ENT Exam: Mucous Membranes Moist - Neck Exam Neck Exam: absent: Meningismus - Respiratory Exam Respiratory Exam: Decreased Breath Sounds Additional comments: right anterior chest wall port-a-cath in place - Cardiovascular Exam Cardiovascular Exam: +S1, +S2 - GI/Abdominal Exam GI & Abdominal Exam: Soft. absent: Tenderness Assessment and Plan - Assessment and Plan (Free Text) Plan: Assessment consider sepsis due to left sided HCAP, slowly improving history of sepsis due to MRSA bacteremia, probably from port-a-cath S/P removal history of HCAP rheumatoid arthritis history of transient ischemic attack obstructive sleep apnea Morbid obesity with BMI 40 hypothyroidism bipolar disorder shcizoaffective disorder, S/P gastric bypass surgery Plan continue Zosyn and Doxycycline day 2; will d/c Vancomycin since blood cx are negativePCT is somewhat elevated at 0.68 - will trend; reviewed CXR will continue to monitor clinically
--- NOTE | 2017-04-03 16:42 | CP.PCM.PN ---
Subjective - Date & Time of Evaluation Date of Evaluation: 04/03/17 Time of Evaluation: 16:39 - Subjective Subjective: Medicine progress note for Dr. Malave's service Patient seen and examined at bedside with her present at the time. No acute overnight events or new complaints reported. Discussed current workup/ treatment. Patient is scheduled for GI series with small bowel in the morning. Otherwise, reports some improvement in her breathing and denies cp, palpitations. Objective - Vital Signs/Intake and Output Vital Signs (last 24 hours): Temp Pulse Resp BP Pulse Ox 98.5 F 70 20 109/63 96 04/03/17 07:41 04/03/17 07:41 04/03/17 07:41 04/03/17 07:41 04/03/17 07:41 Intake and Output: 04/03/17 04/03/17 06:59 18:59 Intake Total 120 Balance 120 - Medications Medications: Current Medications Acetaminophen (Tylenol 325mg Tab) 650 mg PO Q4H PRN PRN Reason: Fever >100.5 F Albuterol/Ipratropium (Duoneb 3 Mg/0.5 Mg (3 Ml) Ud) 3 ml IH [id number] PRN PRN Reason: Cough Apixaban (Eliquis) 5 mg PO BID [facility] PRN Reason: Protocol Last Admin: 04/03/17 09:24 Dose: 5 mg Aripiprazole (Abilify) 20 mg PO HS [facility] PRN Reason: Protocol Last Admin: 04/02/17 22:35 Dose: 20 mg Atorvastatin Calcium (Lipitor) 20 mg PO DAILY [facility] Last Admin: 04/03/17 09:26 Dose: 20 mg Clonazepam (Klonopin) 1 mg PO Q8 PRN; Protocol PRN Reason: Anxiety Last Admin: 04/03/17 12:20 Dose: 1 mg Duloxetine HCl (Cymbalta) 90 mg PO DAILY [facility] Last Admin: 04/03/17 09:24 Dose: 90 mg Ergocalciferol (Drisdol 50,000 Intl Units Cap) 1 cap PO MON [facility] Last Admin: 04/03/17 09:24 Dose: 1 cap Fluticasone Propionate (Flonase) 1 actuation NS DAILY [facility] Last Admin: 04/03/17 09:25 Dose: 1 applic Folic Acid (Folic Acid) 1 mg PO BID [facility] Last Admin: 04/03/17 09:25 Dose: 1 mg Dextrose/Sodium Chloride (Dextrose 5%/0.45% Ns 1000 Ml) 1,000 mls @ 60 mls/hr IV .[id number] [facility] Last Admin: 04/02/17 08:33 Dose: 60 mls/hr Piperacillin Sod/Tazobactam Sod (Zosyn 4.5 Gm In Ns 100ml) 4.5 gm in 100 mls @ 200 mls/hr IVPB Q6 [facility] PRN Reason: Protocol Stop: 04/08/17 18:01 Last Admin: 04/03/17 12:14 Dose: 200 mls/hr Doxycycline Hyclate 100 mg/ (Sodium Chloride) 100 mls @ 100 mls/hr IVPB Q12 [facility] PRN Reason: Protocol Last Admin: 04/03/17 09:27 Dose: 100 mls/hr Levothyroxine Sodium (Synthroid) 175 mcg PO ACB [facility] Last Admin: 04/03/17 09:26 Dose: 175 mcg Ondansetron HCl (Zofran Inj) 4 mg IVP Q4H PRN PRN Reason: Nausea/Vomiting Oxycodone/Acetaminophen (Percocet 5/325 Mg Tab) 1 tab PO Q8 PRN PRN Reason: Pain, moderate (4-7) Stop: 04/04/17 15:08 Last Admin: 04/02/17 05:44 Dose: 1 tab Pantoprazole Sodium (Protonix Ec Tab) 40 mg PO BID [facility] Last Admin: 04/03/17 09:26 Dose: 40 mg Pregabalin (Lyrica) 50 mg PO BID [facility] Last Admin: 04/02/17 09:26 Dose: 50 mg Trazodone HCl (Desyrel) 200 mg PO HS [facility] Last Admin: 04/01/17 22:15 Dose: 200 mg Zolpidem Tartrate (Ambien) 10 mg PO HS PRN; Protocol PRN Reason: Sleep Last Admin: 04/02/17 22:36 Dose: 10 mg - Labs Labs: 04/03/17 06:40 04/03/17 06:40 PT 11.1 Seconds (9.9-11.8) 04/01/17 11:27 INR 1.03 (0.93-1.08) 04/01/17 11:27 APTT 27.5 Seconds (23.7-30.8) 04/01/17 11:27 - Constitutional Appears: No Acute Distress - Head Exam Head Exam: ATRAUMATIC, NORMAL INSPECTION, NORMOCEPHALIC - Eye Exam Eye Exam: EOMI, PERRL - ENT Exam ENT Exam: Mucous Membranes Moist - Neck Exam Neck Exam: Normal Inspection - Respiratory Exam Respiratory Exam: Decreased Breath Sounds (decreased on the left). absent: Rales, Rhonchi, Wheezes - Cardiovascular Exam Cardiovascular Exam: +S1, +S2. absent: Gallop, Rubs, Murmur - GI/Abdominal Exam GI & Abdominal Exam: Soft. absent: Distended, Firm, Guarding, Rigid, Tenderness , Rebound - Extremities Exam Extremities Exam: Normal Inspection. absent: Pedal Edema - Neurological Exam Neurological Exam: Alert, Awake, Oriented x3 - Psychiatric Exam Psychiatric exam: Normal Affect, Normal Mood - Skin Skin Exam: Dry, Intact, Normal Color, Warm Assessment and Plan - Assessment and Plan (Free Text) Plan: 51yo female with history of atrial fibrillation, hypothyroidism, fibromyalgia, bipolar disorder with schizophrenia, rheumatoid arthritis, sleep apnea presents c/o shortness of breath secondary to left-sided pneumonia 1. HCAP/Aspiration pneumonia 2. Atrial fibrillation 3. Hypothyroidism 4. Bipolar disorder with schizophrenia 5. Rheumatoid arthritis 6. Sleep apnea 7. Obesity 8. History of gastric bypass -Patient is currently being treatment with IV antibiotics including Zosyn and Doxcycyline per ID recommendations -CXR was reviewed which revealed a left-sided patchy opacitity in the left mid to lower lung zones -She has a history of gastric bypass and presented with episodes of vomiting with concern for possible aspiriation pneumonia. She is scheduled for a GI series with small bowel tomorrow morning per GI recommendations. -Continue with synthroid for hypothyroidism -BiPAP at night for sleep apnea -Continue with home trazodone, lyrica, cymbalta, klonipin and abilify -GI/DVT prophylaxis with protonix and eliquis -Patient being seen by GI (Dr. Sanchez) and ID (Dr. Treviño) Patient seen and case discussed with attending, Dr. Malave
[2017-04-03] MEDS: Dextrose 5%/0.45% NS 1,000 ML IV SCH (19:55)
--- NOTE | 2017-04-03 22:35 | PN ---
PULMONARY PROGRESS NOTE DATE: 04/03/2017 REFERRING PHYSICIAN: Dr. Ronal Kahn. SUBJECTIVE: She is lying in bed, head at 45 degrees, could not use BiPAP, claustrophobic. Cough is better. No nausea. No vomiting. No diarrhea. No leg pain or leg swelling. PHYSICAL EXAMINATION: GENERAL: No acute distress. VITAL SIGNS: Temperature is 98, heart rate is 70, respiratory rate is 20, blood pressure 109/63, pulse ox 96% on room air. HEENT: Moist mucous membrane. No ulcer or thrush noted. NECK: Supple. No JVD. LUNGS: Has a fair airflow with rhonchus. HEART: S1 and S2. ABDOMEN: Soft and nontender. No organomegaly. EXTREMITIES: Not much edema. NEUROLOGIC: Awake and alert. Follows simple commands. MEDICATIONS: She is on Abilify 20 mg at bedtime, Ambien 10 mg at bedtime p.r.n., Cymbalta 90 mg daily, trazodone 20 mg at bedtime, IV fluid half normal saline 60 mL per hour, doxycycline 70 mg twice a day, vitamin D 50,000 units weekly, DuoNeb q. 6 hours p.r.n., Eliquis 5 mg twice a day, Flonase 1 spray to each nostril daily, folic acid 1 mg twice day, clonazepam 1 mg q. 8 hours p.r.n., Lipitor 20 mg daily, Lyrica 50 mg twice a day, Percocet 5/325 one tablet q. 8 hours p.r.n., Protonix 40 mg daily, Synthroid 175 mcg , Tylenol p.r.n. basis, Zofran 4 mg q. 4 hours p.r.n. and Zosyn 4.5 g IV q. 6 hours. LABORATORY DATA: Shows hemoglobin 9.2, hematocrit 29.4, WBC 12.9 and platelets 227. Sodium 143, potassium 3.4, chloride 106, bicarbonate 29, BUN 14, creatinine 1.0, glucose is 76, calcium is 7.9, AST is 15, ALT 24, alkaline phosphate is 71 and albumin is 3.0. Microbiology; blood culture and urine culture are no growth. IMPRESSION AND PLAN: Aspiration pneumonia status post vomiting, may be started with viral syndrome, atrial fibrillation, hypothyroidism, bipolar disorder, schizophrenia, fibromyalgia, rheumatoid arthritis, obstructive sleep apnea syndrome, history of gastric bypass surgery in the past, diabetes and history of gastrointestinal bleed. Spoke to family at bedside. All their questions answered. The patient has claustrophobia and could not use CPAP. May benefit from nasal pillow mask as outpatient. Continue bronchodilator. Keep head at 45 degrees. Antibiotics. We will repeat chest x-ray. Thank you and we will follow with you. Gisselle Sears MD
[2017-04-04 00:57] VITALS: RESP 20
[2017-04-04] MEDS: Piperacill/Tazo 4.5gm in NS 4.5 GM/100 ML BAG IVPB SCH ×2 (06:05→13:06)
[2017-04-04 08:09] VITALS: BP 115/74; PULSE 71; TEMP 97.6; O2SAT 95
[2017-04-04 09:31] LABS: HEMATOCRIT 29.7 % (36.0-48.0); MEAN CELL VOLUME 88.7 fl (80.0-105.0); MEAN CORPUSCULAR HEMOGLOBIN 28.7 pg (25.0-35.0); MEAN CORPUSCULAR HGB CONC 32.3 g/dl (31.0-37.0); MEAN PLATELET VOLUME 9.6 fl (7.0-11.0); RED CELL DISTRIBUTION WIDTH 16.8 % (11.5-14.5); WHITE BLOOD COUNT 7.3 10^3/ul (4.5-11.0)
[2017-04-04 09:32] LABS: ALB/GLOB RATIO 1.2 (1.1-1.8); ALKALINE PHOSPHATASE 75 U/L (38-126); ALT/SGPT 23 U/L (7-56); AST/SGOT 18 U/L (14-36); BILIRUBIN,TOTAL 0.5 mg/dL (0.2-1.3); BLOOD UREA NITROGEN 8 mg/dL (7-21); CALCIUM 8.6 mg/dL (8.4-10.5); CARBON DIOXIDE 29 mmol/L (21-33); CHLORIDE 106 mmol/L (98-107); GFR AFRICAN-AMERICAN > 60; GLUCOSE,RANDOM 83 mg/dL (70-110); POTASSIUM 3.6 mmol/L (3.6-5.0); SODIUM 144 mmol/L (132-148); TOTAL PROTEIN 6.1 g/dL (5.8-8.3)
[2017-04-04] MEDS: Levothyroxine 175 MCG TAB PO SCH (09:47)
[2017-04-04] MEDS ORDERED: Barium Sulfate for Susp 96% w/w 176g Bottle PR ONE (09:57)
[2017-04-04] MEDS: Pantoprazole 40 mg EC Tab PO SCH (10:00)
[2017-04-04] MEDS: Fluticasone Nasal 50 mcg/Spray NS SCH (10:00)
--- NOTE | 2017-04-04 11:10 | RAD ---
HISTORY: COMPARISON: 04/01/2017 TECHNIQUE: Chest PA and lateral FINDINGS: LINES AND TUBES: The right central venous catheter terminates in the SVC. LUNG AND PLEURA: The lungs are well inflated. There is interval improved aeration in the left lower lobe. There is mild pulmonary venous congestion. HEART AND MEDIASTINUM: The heart is not enlarged. The hilar and mediastinal contours are within normal limits. SKELETAL STRUCTURES: The bony structures are within normal limits for the patient's age. VISUALIZED UPPER ABDOMEN: Normal. OTHER FINDINGS: None. IMPRESSION: Interval improved aeration in the left lower lobe. Residual atelectasis/ pneumonia in the left lower lobe. Follow-up is advised.
--- NOTE | 2017-04-04 11:38 | RAD ---
PROCEDURE: Upper GI and small bowel HISTORY: n/v short gut syndrom COMPARISON: TECHNIQUE: A single contrast study was performed. FINDINGS: The drapery seamstress film was unremarkable. The esophagus is normal in contour. There is a small gastric pouch. Contrast flows into the small bowel without obstruction. Contrast progresses rapidly through the small bowel with the cecum reached 30 minutes. The terminal ileum is unremarkable. IMPRESSION: There is a small gastric pouch. Contrast flows into the small bowel without obstruction. Contrast progresses rapidly through the small bowel with the cecum reached 30 minutes.
--- NOTE | 2017-04-04 15:42 | PN ---
DATE: 04/04/2017 SUBJECTIVE: The patient seen earlier this morning in room 366, bed 1. The patient is in bed, comfortable. No fevers and no chills. OBJECTIVE: VITAL SIGNS: On exam, temperature is 98, blood pressure is 115/70, respiratory rate 16. HEENT: Unremarkable. NECK: Supple. LUNGS: Decreased breath sounds. HEART: Normal S1 and S2. ABDOMEN: Soft. LABORATORY EXAMINATION: Reveals am BUN of 8, creatinine of 0.9. White count is down to normal now at 7.3. Microbiology is noted and blood cultures are negative.. Chest x-ray from today appears to be much improved. ASSESSMENT/PLAN: This is a 51-year-old female with sepsis due to left-sided healthcare-associated pneumonia, much improved now with resolution of the white count and the patient with a history of MRSA bacteremia with a Port-A-Cath that was replaced, rheumatoid arthritis, transient ischemic attack, obstructive sleep apnea, morbid obesity, body mass index of 40, hypothyroidism, schizoaffective disorder. Today is day #3 of doxycycline and Zosyn. We will discontinue that and complete with p.o. Levaquin. Follow up with PMD closely. Alexander Bustamante MD
--- NOTE | 2017-04-04 16:14 | CP.PCM.PN ---
Subjective - Date & Time of Evaluation Date of Evaluation: 04/04/17 Time of Evaluation: 12:36 - Subjective Subjective: Patient was seen and examined at the bedside, the chart was reviewed. Went for GI series this morning. No acute overnight events reported. Objective - Vital Signs/Intake and Output Vital Signs (last 24 hours): Temp Pulse Resp BP Pulse Ox 97.6 F 71 20 115/74 95 04/04/17 08:09 04/04/17 08:09 04/04/17 08:09 04/04/17 08:09 04/04/17 08:09 Intake and Output: 04/04/17 04/04/17 06:59 18:59 Intake Total 1090 Balance 1090 - Medications Medications: Current Medications Acetaminophen (Tylenol 325mg Tab) 650 mg PO Q4H PRN PRN Reason: Fever >100.5 F Albuterol/Ipratropium (Duoneb 3 Mg/0.5 Mg (3 Ml) Ud) 3 ml IH [id number] PRN PRN Reason: Cough Apixaban (Eliquis) 5 mg PO BID KEITH PRN Reason: Protocol Last Admin: 04/04/17 10:00 Dose: Not Given Aripiprazole (Abilify) 20 mg PO HS KEITH PRN Reason: Protocol Last Admin: 04/03/17 21:27 Dose: 20 mg Atorvastatin Calcium (Lipitor) 20 mg PO DAILY KEITH Last Admin: 04/03/17 09:26 Dose: 20 mg Clonazepam (Klonopin) 1 mg PO Q8 PRN; Protocol PRN Reason: Anxiety Last Admin: 04/03/17 21:31 Dose: 1 mg Duloxetine HCl (Cymbalta) 90 mg PO DAILY KEITH Last Admin: 04/03/17 09:24 Dose: 90 mg Ergocalciferol (Drisdol 50,000 Intl Units Cap) 1 cap PO MON KEITH Last Admin: 04/03/17 09:24 Dose: 1 cap Fluticasone Propionate (Flonase) 1 actuation NS DAILY KEITH Last Admin: 04/04/17 10:00 Dose: Not Given Folic Acid (Folic Acid) 1 mg PO BID KEITH Last Admin: 04/04/17 10:00 Dose: Not Given Dextrose/Sodium Chloride (Dextrose 5%/0.45% Ns 1000 Ml) 1,000 mls @ 60 mls/hr IV .[id number] [facility] Last Admin: 04/03/17 19:55 Dose: 60 mls/hr Piperacillin Sod/Tazobactam Sod (Zosyn 4.5 Gm In Ns 100ml) 4.5 gm in 100 mls @ 200 mls/hr IVPB Q6 KEITH PRN Reason: Protocol Stop: 04/08/17 18:01 Last Admin: 04/04/17 06:05 Dose: 200 mls/hr Doxycycline Hyclate 100 mg/ (Sodium Chloride) 100 mls @ 100 mls/hr IVPB Q12 KEITH PRN Reason: Protocol Last Admin: 04/04/17 10:00 Dose: Not Given Levothyroxine Sodium (Synthroid) 175 mcg PO ACB [facility] Last Admin: 04/04/17 09:47 Dose: Not Given Ondansetron HCl (Zofran Inj) 4 mg IVP Q4H PRN PRN Reason: Nausea/Vomiting Oxycodone/Acetaminophen (Percocet 5/325 Mg Tab) 1 tab PO Q8 PRN PRN Reason: Pain, moderate (4-7) Stop: 04/04/17 15:08 Last Admin: 04/02/17 05:44 Dose: 1 tab Pantoprazole Sodium (Protonix Ec Tab) 40 mg PO BID [facility] Last Admin: 04/04/17 10:00 Dose: Not Given Pregabalin (Lyrica) 50 mg PO BID [facility] Last Admin: 04/02/17 09:26 Dose: 50 mg Trazodone HCl (Desyrel) 200 mg PO HS [facility] Last Admin: 04/01/17 22:15 Dose: 200 mg Zolpidem Tartrate (Ambien) 10 mg PO HS PRN; Protocol PRN Reason: Sleep Last Admin: 04/03/17 21:29 Dose: 10 mg - Labs Labs: 04/04/17 08:41 04/04/17 08:41 PT 11.1 Seconds (9.9-11.8) 04/01/17 11:27 INR 1.03 (0.93-1.08) 04/01/17 11:27 APTT 27.5 Seconds (23.7-30.8) 04/01/17 11:27 - Constitutional Appears: No Acute Distress - Head Exam Head Exam: NORMOCEPHALIC - Eye Exam Eye Exam: Normal appearance. absent: Scleral icterus - ENT Exam ENT Exam: Mucous Membranes Moist - Neck Exam Neck Exam: Normal Inspection - Respiratory Exam Respiratory Exam: NORMAL BREATHING PATTERN. absent: Respiratory Distress - Cardiovascular Exam Cardiovascular Exam: +S1, +S2 - GI/Abdominal Exam GI & Abdominal Exam: Soft, Normal Bowel Sounds. absent: Guarding, Tenderness, Rebound - Extremities Exam Extremities Exam: Normal Capillary Refill. absent: Calf Tenderness - Neurological Exam Neurological Exam: Alert, Awake, Oriented x3 Assessment and Plan - Assessment and Plan (Free Text) Assessment: Assessment: 51-year-old female with history of gastric bypass came with episodes of vomiting and shortness of breath possible aspiration pneumonia History of anemia History of atrial fibrillation on follow up with History of TIA Rheumatoid arthritis Bipolar disorder Plan: follow-up GI series Continue IV antibiotics Patient would benefit from colonoscopic evaluation, last endoscopy was 05/2016 it was a negative exam status post gastric bypass. Her last colonoscopy was a fair preparation. On Eliquis Continue PPI Seen and discussed with Dr. Sanchez.
--- NOTE | 2017-04-04 19:53 | PN ---
PULMONARY PROGRESS NOTE DATE: 04/04/2017 REFERRING PHYSICIAN: Dr. Malave. SUBJECTIVE: She is getting ready to go home. Family at bedside. Night was unremarkable. Refused to use CPAP and BiPAP. No cough. No sputum production. No nausea. No vomiting. No diarrhea. No leg pain or leg swelling. OBJECTIVE: GENERAL: No acute distress. VITAL SIGNS: Temperature is 98, heart rate is 71, respiratory rate is 20, blood pressure 115/74, pulse ox 95% on room air. HEENT: Moist mucous membrane. Crowded airway. Mallampati score is IV. NECK: Supple. No JVD. LUNGS: Has a fair airflow with rhonchus. HEART: S1 and S2. ABDOMEN: Soft and nontender. No organomegaly. EXTREMITIES: No edema. NEUROLOGICAL: Awake and alert. Follows simple commands. MEDICATIONS: Reviewed. No new changes in medication reported. LABORATORY DATA: Shows hemoglobin 9.6, hematocrit 29.7, WBC 7.3, platelet count is 245. Sodium 144, potassium 3.6, chloride 106, bicarbonate 29, BUN 8, creatinine 0.9, glucose is 78, calcium is 8.6. AST 18, ALT 23, alkaline phosphatase is 75, albumin is 3.3. Microbiology, blood culture, urine culture, there is no growth. Chest x-ray done today showed interval improved aeration of the left lower lobe, residual atelectasis, pneumonia in the left lower lobe. She had a single contrast study performed yesterday for upper GI, which showed small gastric pouch, contrast flows into the small bowel without obstruction, contrast progresses rapidly through the small bowel and cecum region within 30 minutes. IMPRESSION AND PLAN: Resolving aspiration pneumonia, probably was secondary to vomiting, atrial fibrillation, hypothyroid, bipolar disorder, schizophrenia, fibromyalgia, rheumatoid arthritis, obstructive sleep apnea syndrome, history of gastric bypass surgery in the past, diabetes, history of GI bleed. Pulmonary point of view, she is doing okay, could be discharged soon, taper dose of steroids. The patient refuse to use CPAP/BiPAP, claustrophobic. May benefit from nasal pillow mask as outpatient. Also should get pulmonary function test. She needs follow up x-ray to assure the stability of infiltrate. Gisselle Sears MD [facility] # [id number]
[2017-04-05] MEDS ORDERED: levoFLOXacin 500 MG TAB PO SCH (10:00)
== END 2017-04-04 16:41 | disposition home or self-care (01) | DRG 178 ==
LOC: ED 10:24 → ERH 12:02 → 3RNO 15:07
PROVIDERS: ADMIT Family Medicine; ATTEND Family Medicine
DX: J69.0 Pneumonitis due to inhalation of food and vomit (principal); Z68.41 Body mass index [BMI] 40.0-44.9, adult; E11.43 Type 2 diabetes mellitus with diabetic autonomic (poly)neuropathy; K31.84 Gastroparesis; D52.9 Folate deficiency anemia, unspecified; E66.01 Morbid (severe) obesity due to excess calories; I48.91 Unspecified atrial fibrillation; E53.8 Deficiency of other specified B group vitamins; M06.9 Rheumatoid arthritis, unspecified; M79.7 Fibromyalgia; F31.9 Bipolar disorder, unspecified; I12.9 Hypertensive chronic kidney disease with stage 1 through stage 4 chronic kidney disease, or unspecified chronic kidney disease; E11.22 Type 2 diabetes mellitus with diabetic chronic kidney disease; N18.9 Chronic kidney disease, unspecified; E03.9 Hypothyroidism, unspecified; D50.9 Iron deficiency anemia, unspecified; F25.9 Schizoaffective disorder, unspecified; G47.33 Obstructive sleep apnea (adult) (pediatric); Z86.73 Personal history of transient ischemic attack (TIA), and cerebral infarction without residual deficits; Z87.891 Personal history of nicotine dependence; Z98.84 Bariatric surgery status; Z79.01 Long term (current) use of anticoagulants; Z87.442 Personal history of urinary calculi

== ENCOUNTER 2017-08-17 18:23 | Inpatient (IN) | payer MEDICARE, MEDICAID, OTHER ==
[2017-08-17 18:33] VITALS: BMI 37.5
[2017-08-17 19:43] LABS: ALB/GLOB RATIO 1.1 (1.1-1.8); ALBUMIN 3.7 g/dL (3.0-4.8); ALT/SGPT 27 U/L (7-56); AST/SGOT 30 U/L (14-36); BLOOD UREA NITROGEN 12 mg/dL (7-21); CALCIUM 9.4 mg/dL (8.4-10.5); GFR AFRICAN-AMERICAN > 60; GFR NON-AFRICAN AMERICAN > 60
[2017-08-17 19:51] LABS: BASO # 0.04 K/mm3 (0.0-2.0); BASO % 0.5 % (0.0-3.0); EOS # 0.2 (0.0-0.7); EOS % 2.1 % (1.5-5.0); GRAN # 5.2 (1.4-6.5); GRAN % 61.3 % (50.0-68.0); HEMOGLOBIN 11.4 g/dL (12.0-16.0); LYMPH # 2.4 (1.2-3.4); LYMPH % 28.7 % (22.0-35.0); MEAN CELL VOLUME 93.9 fl (80.0-105.0); MEAN CORPUSCULAR HGB CONC 30.9 g/dl (31.0-37.0); MEAN PLATELET VOLUME 10.2 fl (7.0-11.0); MONO # 0.6 (0.1-0.6); MONO % 7.4 % (1.0-6.0); RBC 3.93 10^6/uL (3.5-6.1); RED CELL DISTRIBUTION WIDTH 14.9 % (11.5-14.5); WHITE BLOOD COUNT 8.5 10^3/ul (4.5-11.0)
[2017-08-17 19:55] LABS: B-TYPE NATRIURETIC PEPTIDE 258 pg/mL (0-450); TROPONIN I < 0.01 ng/mL
--- NOTE | 2017-08-17 21:36 | ED PDOC ---
Arrival/HPI <Arvind Phipps - Last Filed: 08/17/17 22:02> - General Historian: Patient - History of Present Illness Quality: Pressure Severity Level: 6 <Sherri Gutierrez - Last Filed: 08/17/17 23:10> - General Chief Complaint: Chest Pain Time Seen by Provider: 08/17/17 18:44 - History of Present Illness Narrative History of Present Illness (Text): 08/17/17 20:55 52-year-old female with a history of stroke with residual left-sided weakness, atrial fibrillation, presents sent in by her network director for evaluation of chest pain. pt states she has been having nausea, vomiting, diarrhea for the past 3 days. pt states she has hx of gastric bypass. pt denies dizziness or weakness. pt states during IV hydration in the office today she developed pressure sensation in the chest as if an elephant was sitting on her chest. pt states pain has slightly improved. pt denies fever/chills. denies cough. no other complaints. (Sherri Gutierrez) Past Medical History - Provider Review Nursing Documentation Reviewed: Yes - Travel History Have you recently traveled outside [place] w/in the past 3 mons?: No - Infectious Disease Hx of Infectious Diseases: None - Tetanus Immunization Tetanus Immunization: Unknown - Cardiac Hx Pacemaker: No - Pulmonary Hx Respiratory Disorders: Yes Hx Asthma: Yes Hx Pneumonia: Yes Hx Sleep Apnea: Yes (does not tolerated bipap) - Neurological Hx Paralysis: No - HEENT Hx HEENT Disorder: Yes (eyeglasses) - Renal Hx Renal Disorder: Yes Hx Kidney Stones: Yes - Endocrine/Metabolic Hx Diabetes Mellitus Type 2: Yes Hx Hypothyroidism: Yes - Hematological/Oncological Hx Blood Transfusions: Yes (09/2014) Hx Blood Transfusion Reaction: No - Integumentary Other/Comment: mid chest steri strips intact loop recorded implanted, multiple round brown spots ble - Musculoskeletal/Rheumatological Hx Musculoskeletal Disorders: Yes - Gastrointestinal Hx Gastrointestinal Disorders: Yes (gi bleed, obese) Hx Gastroesophageal Reflux: Yes - Genitourinary/Gynecological Hx Genitourinary Disorders: No - Psychiatric Hx Emotional Abuse: No Hx Physical Abuse: No Hx Substance Use: No - Surgical History Hx Gastric Bypass Surgery: Yes (07/26/1999 235 lb weight loss) Other/Comment: R chest port for iron infusions and hydration. - Anesthesia Hx Anesthesia Reactions: No Hx Malignant Hyperthermia: No - Suicidal Assessment Feels Threatened In Home Enviroment: No <Sherri Gutierrez - Last Filed: 08/17/17 23:10> Family/Social History - Physician Review Nursing Documentation Reviewed: Yes Family/Social History: Unknown Family HX Smoking Status: Never Smoked Hx Alcohol Use: No Hx Substance Use: No Hx Substance Use Treatment: No <Sherri Gutierrez - Last Filed: 08/17/17 23:10> Allergies/Home Meds <Arvind Phipps - Last Filed: 08/17/17 22:02> <Sherri Gutierrez - Last Filed: 08/17/17 23:10> Allergies/Adverse Reactions: Allergies Iodinated Contrast- Oral and IV Dye [Iodinated Contrast Media - IV Dye] Allergy (Verified 08/17/17 18:34) RASH iodine Allergy (Verified 08/17/17 18:34) RASH meperidine Allergy (Verified 08/17/17 18:34) RASH Home Medications: Home Meds Medication Instructions Recorded Confirmed Zolpidem Tartrate [Ambien] 10 mg PO HS 09/12/14 08/17/17 Pregabalin [Lyrica] 50 mg PO DAILY 04/07/15 08/17/17 Glucagon [Glucagen Diagnostic Kit] 1 mg IM PRN PRN 10/02/16 08/17/17 DULoxetine [Cymbalta] 90 mg PO BID 12/30/16 08/17/17 Levothyroxine [Synthroid] 175 mcg PO ACB 02/01/17 08/17/17 Folic Acid 1 mg PO BID 03/21/17 08/17/17 Pantoprazole [Protonix EC Tab] 40 mg PO DAILY 03/21/17 08/17/17 ARIPiprazole [Abilify] 30 mg PO BID 07/20/17 08/17/17 Enoxaparin [Lovenox] 90 mg SC DAILY 07/20/17 08/17/17 Review of Systems - Review of Systems Constitutional: absent: Fatigue, Fevers Respiratory: Cough, Sputum. absent: SOB Cardiovascular: Chest Pain. absent: Palpitations, Syncope Gastrointestinal: Abdominal Pain, Diarrhea, Nausea, Vomiting Genitourinary Female: absent: Dysuria Musculoskeletal: absent: Arthralgias Skin: absent: Rash Neurological: absent: Headache, Dizziness Psychiatric: absent: Anxiety, Depression <Sherri Gutierrez - Last Filed: 08/17/17 23:10> Physical Exam Vital Signs Reviewed: Yes Temperature: Afebrile Blood Pressure: Hypertensive Pulse: Regular Respiratory Rate: Normal Appearance: Positive for: Well-Appearing, Non-Toxic, Comfortable Pain Distress: None Mental Status: Positive for: Alert and Oriented X 3 - Systems Exam Head: Present: Atraumatic Mouth: Present: Moist Mucous Membranes Neck: Present: Normal Range of Motion Respiratory/Chest: Present: Clear to Auscultation. No: Wheezes, Tachypneic Cardiovascular: Present: Regular Rate and Rhythm. No: Tachycardic Abdomen: No: Tenderness, Distention, Rebound, Guarding Back: Present: Normal Inspection. No: CVA Tenderness Upper Extremity: Present: Normal ROM Lower Extremity: Present: Normal ROM Neurological: Present: GCS=15, Speech Normal Skin: Present: Warm, Dry, Normal Color. No: Rashes Psychiatric: Present: Alert, Oriented x 3 <Sherri Gutierrez - Last Filed: 08/17/17 23:10> Vital Signs Temp Pulse Resp BP Pulse Ox 08/17/17 21:10 88 16 127/92 H 100 08/17/17 18:35 97.6 F 83 18 157/86 H 93 L 08/17/17 18:33 97.6 F 83 18 157/86 H 93 L Medical Decision Making <Arvind Phipps - Last Filed: 08/17/17 22:02> <MattSherri T - Last Filed: 08/17/17 23:10> ED Course and Treatment: 08/17/17 21:42 pt with chest pain ; vitals stable cbc; wnl cmp; wnl trop:wnl d dimer; wnl bnp; wnl ekg; normal sinus rhythm at [address] elevations and normal axis cxr: wnl CT abd/pelvis; FINDINGS: LIMITATIONS: Artifact related to the patient's body habitus. Mild to moderate streak/motion artifact. LOWER THORAX: Scattered, small areas of consolidation in the lung bases bilaterally, suspicious for patchy bibasilar infiltrate and s/pneumonia. ABDOMEN: LIVER: No acute abnormality of the liver identified. GALLBLADDER AND BILE DUCTS: No CT evidence of acute cholecystitis. No evidence of significant biliary ductal dilatation. PANCREAS: No CT evidence of acute pancreatitis. SPLEEN: No acute abnormality of the spleen identified. ADRENALS: No acute abnormality of the adrenal glands identified. KIDNEYS AND URETERS: Tiny, nonobstructing left renal stone. No evidence of hydroureteronephrosis. STOMACH AND BOWEL: Postsurgical changes involving the stomach and left abdomen, compatible with a given history of prior gastric bypass surgery. Focally dilated small bowel loop is seen in the left abdomen. There is surgical suture noted within this bowel loop , and this finding most likely represents chronic postsurgical dilatation. Otherwise, no significant abnormality of the bowel is identified. No evidence of diffuse small bowel dilatation. No evidence of a significant small bowel obstruction. No acute abnormality of the colon identified. No acute abnormality of the gastric pouch or excluded portion of the stomach identified. APPENDIX: Normal appendix is not seen, however, there are no significant inflammatory changes visualized in the expected location of the appendix to suggest appendicitis. Recommend clinical correlation. PELVIS: BLADDER: No acute abnormality of the bladder identified. REPRODUCTIVE:No acute abnormality of the reproductive organs is seen. No acute abnormality of the uterus identified. No evidence of large adnexal masses. ABDOMEN and PELVIS: INTRAPERITONEAL SPACE: No evidence of free intraperitoneal air or fluid. BONES/JOINTS: Bony structures appear demineralized. Old fracture of the left inferior pubic ramus. SOFT TISSUES: No acute abnormality of the visualized soft tissues is seen. VASCULATURE: No evidence of abdominal aortic aneurysm. No evidence of periaortic hemorrhage. LYMPH NODES: No evidence of diffuse lymphadenopathy. IMPRESSION: - Findings suspicious for mild, patchy infiltrates/pneumonia in the lung bases. Recommend clinical correlation. - Otherwise, no evidence of significant acute process. No definite cause for abdominal pain identified. - See above for remaining findings. asa po pt was placed on oxygen via nasal canula Blood cultures pending rapid flu pending Rocephin and Zithromax ordered IV pt reassessment; pt non toxic well appearing; no distress. case discussed with Dr. Kahn will Admit observational status to Tele for chest pain, pneumonia. consult ID. case discussed with dr. phipps in depth; impression; chest pain, pneumonia Admit observational status to tele; (Sherri Gutierrez) - Lab Interpretations Lab Results: 08/17/17 19:16 08/17/17 19:16 Lab Results 08/17/17 19:16: WBC 8.5, RBC 3.93, Hgb 11.4 L, Hct 36.9, MCV 93.9, MCH 29.0, MCHC 30.9 L, RDW 14.9 H, Plt Count 276, MPV 10.2, Gran % 61.3, Lymph % (Auto) 28.7, [place] % (Auto) 7.4 H, Eos % (Auto) 2.1, Baso % (Auto) 0.5, Gran # 5.20, Lymph # (Auto) 2.4, [place] # (Auto) 0.6, Eos # (Auto) 0.2, Baso # (Auto) 0.04 08/17/17 19:16: Sodium 141, Potassium 3.9, Chloride 108 H, Carbon Dioxide 24, Anion Gap 13, BUN 12, Creatinine 0.9, Est GFR ( Amer) > 60, Est GFR (Non- Af Amer) > 60, Random Glucose 83, Calcium 9.4, Total Bilirubin 0.4, AST 30, ALT 27, Alkaline Phosphatase 136 H, Lactate Dehydrogenase 452, Total Creatine Kinase 68, Troponin I < 0.01 D, NT-Pro-B Natriuret Pep 258, Total Protein 7.0, Albumin 3.7, Globulin 3.3, Albumin/Globulin Ratio 1.1 08/17/17 19:16: D-Dimer, Quantitative < 200 - RAD Interpretation Radiology Orders: 08/17/17 18:45 CHEST PORTABLE [RAD] Stat 08/17/17 21:08 ABD & PELVIS W/O PO OR IV CONT [CT] Stat - Medication Orders Current Medication Orders: Acetaminophen (Tylenol 325mg Tab) 650 mg PO Q4 PRN PRN Reason: Pain, moderate (4-7) Apixaban (Eliquis) 5 mg PO BID KEITH PRN Reason: Protocol Aripiprazole (Abilify) 30 mg PO HS KEITH PRN Reason: Protocol Clonazepam (Klonopin) 0.5 mg PO TID PRN; Protocol PRN Reason: Agitation Duloxetine HCl (Cymbalta) 60 mg PO DAILY KEITH Ceftriaxone Sodium (Rocephin 1 Gram Ivpb) 1 gm in 100 mls @ 200 mls/hr IVPB STAT STA PRN Reason: Protocol Stop: 08/17/17 23:18 Azithromycin (Zithromax 500mg In Ns) 500 mg in 250 mls @ 167 mls/hr IVPB STAT STA PRN Reason: Protocol Stop: 08/18/17 00:18 Levothyroxine Sodium (Synthroid) 175 mcg PO 0600 KEITH Ondansetron HCl (Zofran Odt) 4 mg PO Q8H PRN PRN Reason: Nausea/Vomiting Pantoprazole Sodium (Protonix Ec Tab) 40 mg PO DAILY KEITH Pregabalin (Lyrica) 50 mg PO BID KEITH Sucralfate (Carafate Oral Susp) 1 gm PO BID KEITH Zolpidem Tartrate (Ambien) 5 mg PO HS PRN; Protocol PRN Reason: Insomnia Discontinued Medications Acetaminophen (Tylenol 325mg Tab) 975 mg PO STAT STA Stop: 08/17/17 22:05 Last Admin: 08/17/17 22:10 Dose: 975 mg MAR Pain/Vitals Document 08/17/17 22:10 HI (Rec: 08/17/17 22:11 [place] [id number]) Pain Reassessment Is This A Pain ReAssessment? No Location Pain Location Body Loading Supervisor Description Acute Aspirin (Aspirin) 325 mg PO STAT STA Stop: 08/17/17 22:05 Last Admin: 08/17/17 22:10 Dose: 325 mg - PA / CIVIL ENGINEERING MANAGER / Resident Statement / has reviewed & agrees with the documentation as recorded. LARRY has examined the patient and agrees with the treatment plan. <Arvind Phipps - Last Filed: 08/17/17 22:02> Disposition/Present on Arrival <Arvind Phipps - Last Filed: 08/17/17 22:02> - Present on Arrival Any Indicators Present on Arrival: No History of DVT/PE: No History of Uncontrolled Diabetes: No Urinary Catheter: No History of Decub. Ulcer: No History Surgical Site Infection Following: None - Disposition Have Diagnosis and Disposition been Completed?: Yes Disposition Time: 22:09 Patient Plan: Observation <Sherri Gutierrez - Last Filed: 08/17/17 23:10> - Disposition Diagnosis: Pneumonia, Chest pain Disposition: HOSPITALIZED Condition: FAIR
--- NOTE | 2017-08-17 22:41 | CT ---
EXAM: CT Abdomen and Pelvis Without Intravenous Contrast EXAM DATE/TIME: 08/17/2017 9:08 PM CLINICAL HISTORY: 52 years old, female; Pain; Abdominal pain; Prior surgery; Surgery type: Gastric bypass 18 years ago; Additional info: Abdominal pain/n/v/d TECHNIQUE: Axial computed tomography images of the abdomen and pelvis without intravenous contrast. All CT scans at this facility use one or more dose reduction techniques, viz.: automated exposure control; ma/kV adjustment per patient size (including targeted exams where dose is matched to indication; i.e. head); or iterative reconstruction technique. Coronal and sagittal reformatted images were created and reviewed. COMPARISON: Prior CT abdomen and pelvis of 2017-02-01 FINDINGS: LIMITATIONS: Artifact related to the patient's body habitus. Mild to moderate streak/motion artifact. LOWER THORAX: Scattered, small areas of consolidation in the lung bases bilaterally, suspicious for patchy bibasilar infiltrate and s/pneumonia. ABDOMEN: LIVER: No acute abnormality of the liver identified. GALLBLADDER AND BILE DUCTS: No CT evidence of acute cholecystitis. No evidence of significant biliary ductal dilatation. PANCREAS: No CT evidence of acute pancreatitis. SPLEEN: No acute abnormality of the spleen identified. ADRENALS: No acute abnormality of the adrenal glands identified. KIDNEYS AND URETERS: Tiny, nonobstructing left renal stone. No evidence of hydroureteronephrosis. STOMACH AND BOWEL: Postsurgical changes involving the stomach and left abdomen, compatible with a given history of prior gastric bypass surgery. Focally dilated small bowel loop is seen in the left abdomen. There is surgical suture noted within this bowel loop, and this finding most likely represents chronic postsurgical dilatation. Otherwise, no significant abnormality of the bowel is identified. No evidence of diffuse small bowel dilatation. No evidence of a significant small bowel obstruction. No acute abnormality of the colon identified. No acute abnormality of the gastric pouch or excluded portion of the stomach identified. APPENDIX: Normal appendix is not seen, however, there are no significant inflammatory changes visualized in the expected location of the appendix to suggest appendicitis. Recommend clinical correlation. PELVIS: BLADDER: No acute abnormality of the bladder identified. REPRODUCTIVE:No acute abnormality of the reproductive organs is seen. No acute abnormality of the uterus identified. No evidence of large adnexal masses. ABDOMEN and PELVIS: INTRAPERITONEAL SPACE: No evidence of free intraperitoneal air or fluid. BONES/JOINTS: Bony structures appear demineralized. Old fracture of the left inferior pubic ramus. SOFT TISSUES: No acute abnormality of the visualized soft tissues is seen. VASCULATURE: No evidence of abdominal aortic aneurysm. No evidence of periaortic hemorrhage. LYMPH NODES: No evidence of diffuse lymphadenopathy. IMPRESSION: - Findings suspicious for mild, patchy infiltrates/pneumonia in the lung bases. Recommend clinical correlation. - Otherwise, no evidence of significant acute process. No definite cause for abdominal pain identified. - See above for remaining findings.
[2017-08-17] MEDS ORDERED: cefTRIAXone 1 gm 1 GM/100 ML BAG IVPB STA (22:49)
[2017-08-17] MEDS ORDERED: Azithromycin 500MG/NS 250ml 500 MG/250 ML BAG IVPB STA (22:49)
--- NOTE | 2017-08-18 05:08 | HP ---
DATE OF EXAM: 08/17/[address] Malave. CHIEF COMPLAINT: Chest pain. HISTORY OF PRESENT ILLNESS: The patient is a 52-year-old female with significant medical history including atrial fibrillation, iron-deficiency anemia, status post transfusions, history of gastric bypass, history of TIAs, hypoglycemia, hypercoagulable state - on Eliquis, intermittent small bowel obstruction, nausea and vomiting history. Admitted via the emergency room for chest discomfort while getting hydration in Dr. Malave's office. The patient also is known to suffer from anxiety disorder, schizophrenia and depression, for which she is taking medications as per Psychiatry's recommendations. With this, she is now seen in the emergency room with her at the bedside, reporting that the chest discomfort has modestly improved. Patient to be evaluated for the discomfort as per Cardiology, Dr. Parker and Dr. Martínez. We will also ask for consult with Dr. Sanchez, gastrointestinal it solutions sales consultant, as the patient has significant gastrointestinal history. 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 The patient also had a loop recorder insertion in 2017 and now has a port placement for her IV access. ALLERGIES: INCLUDE IV DYE, DEMEROL. MEDICATIONS: Include Synthroid, Lyrica, Cymbalta, Abilify, Lipitor, vitamin D, Protonix, Eliquis, Ambien, folic acid, Klonopin, Zofran, and Carafate. FAMILY HISTORY AND SOCIAL HISTORY: The patient is a non-ethanolic, nonsmoker. . at the bedside. Mother with a history of CVA, foot cancer ?, sister with ovarian cancer. REVIEW OF SYSTEMS: A 12-point review of systems was done which was negative to questions except for items mentioned in the history of present illness. PHYSICAL EXAMINATION: VITAL SIGNS: Include temperature 97.6, pulse 88, respirations 16, blood pressure 127/92, pulse ox 100%, it was 93% then, oxygen was added and she is now on 100%. HEENT: Unremarkable. NECK: Supple. HEART: Tachy rate, regular rhythm. LUNGS: Clear. ABDOMEN: Obese, soft, nontender. EXTREMITIES: +1 edema of the feet bilaterally. NEUROLOGIC: Awake and alert with decreased strength to coverstitch binder, with decreased strength to lower extremities also noted. SKIN: Warm and dry. DIAGNOSTIC DATA: The patient's testing included a chest x-ray which has not been read, CAT scan of the abdomen and pelvis which has not been read; there was an EKG, also which has not be read at present. LABORATORY DATA: Her labs were done. White blood cell count of 8.5, hemoglobin 11.4, hematocrit 36.9, platelet count is 276,000, with a chem metabolic panel showing an alk phos of 136, chloride of 108, otherwise normal chem metabolic panel. Other testing of this patient also included a cardiac enzyme evaluation, which showed a troponin of less than 0.01 with a CK of 68. ASSESSMENT: Chest pain - rule out cardiac etiology, hypercoagulable state, atrial fibrillation, history of gastric bypass with intermittent small bowel obstruction/abdominal pain, iron deficiency anemia - status post transfusions, schizophrenia, depressive disorder, fibromyositis, orthostatic hypotension, gastroesophageal reflux disease. The patient is a complex patient with a comprehensive medically necessary and appropriate visit carried out in excess of 1-hour's time, as the patient was also seen in Dr. Malave's office earlier today for hydration. She was evaluated there. She was evaluated again second time in the emergency room with the patient's questions answered and her 's questions answered to their satisfaction. We will monitor clinically and with labs. PLAN: Plan for this patient, after conversation with Dr. Malave, is to admit by the emergency room. We will also continue the present medical regimen, with consult with Dr. Sanchez - Gastroenterology, and a consult with Dr. Parker - Cardiology to rule out a heart condition causing her discomfort. Patient also now reports a headache for which we will offer Tylenol for the time being. Prognosis for this patient is guarded. We will monitor clinically with labs. Ronal Kahn MD
[2017-08-18] MEDS: Levothyroxine 175 MCG TAB PO SCH (05:17)
[2017-08-18 06:56] LABS: BASO # 0.06 K/mm3 (0.0-2.0); EOS # 0.2 (0.0-0.7); EOS % 3.2 % (1.5-5.0); GRAN # 2.95 (1.4-6.5); GRAN % 50.2 % (50.0-68.0); HEMOGLOBIN 10.5 g/dL (12.0-16.0); LYMPH # 2.2 (1.2-3.4); LYMPH % 37.5 % (22.0-35.0); MEAN CELL VOLUME 94.4 fl (80.0-105.0); MEAN CORPUSCULAR HEMOGLOBIN 29.5 pg (25.0-35.0); MEAN CORPUSCULAR HGB CONC 31.3 g/dl (31.0-37.0); MEAN PLATELET VOLUME 9.8 fl (7.0-11.0); MONO # 0.5 (0.1-0.6); MONO % 8.1 % (1.0-6.0); RBC 3.56 10^6/uL (3.5-6.1); WHITE BLOOD COUNT 5.9 10^3/ul (4.5-11.0)
[2017-08-18 06:59] LABS: ALT/SGPT 25 U/L (7-56); AST/SGOT 20 U/L (14-36); BLOOD UREA NITROGEN 13 mg/dL (7-21); CALCIUM 8.8 mg/dL (8.4-10.5); GFR AFRICAN-AMERICAN > 60; GFR NON-AFRICAN AMERICAN > 60
[2017-08-18 07:00] LABS: INR 1.09 (0.93-1.08); PROTHROMBIN TIME 12.5 SECONDS (9.4-12.5)
[2017-08-18 08:35] LABS: HDL CHOLESTEROL 69 mg/dL (29-60)
[2017-08-18 08:46] LABS: LDL CHOLESTEROL 97 mg/dL (0-129)
--- NOTE | 2017-08-18 08:56 | RAD ---
HISTORY: chest pain COMPARISON: 04/04/2017 FINDINGS: LUNGS: No active pulmonary disease. PLEURA: No significant pleural effusion identified, no pneumothorax apparent. CARDIOVASCULAR: Normal. OSSEOUS STRUCTURES: No significant abnormalities. VISUALIZED UPPER ABDOMEN: Normal. OTHER FINDINGS: Right-sided Port-A-Cath IMPRESSION: No active disease.
[2017-08-18] MEDS ORDERED: Aminophylline 25 mg/ml Inj ONE (10:18)
[2017-08-18] MEDS: Sucralfate 1 gm/10 ml Oral Susp UD PO SCH ×2 (10:55→17:21)
[2017-08-18] MEDS: Pantoprazole 40 mg EC Tab PO SCH (10:58)
--- NOTE | 2017-08-18 12:40 | CP.PCM.CON ---
History of Present Illness - History of Present Illness History of Present Illness: 52 year old female with PMH of history of sepsis due to MRSA bacteremia, probably from port-a-cath S/P removal , history of HCAP, rheumatoid arthritis, history of transient ischemic attack, obstructive sleep apnea, Morbid obesity with BMI 40, hypothyroidism, bipolar disorder, schizoaffective disorder, S/P gastric bypass surgery was sent in from her Vice President Planning's office after she was found to have chest pain during IV infusion. She has been complaining of nausea , vomiting and diarrhea for the last 2-3 days, without fever or chills. She has occasional cough without sputum production, no SOB, no headache or dizziness, no abdominal pain, no dysuria, no sore throat, no blurring of vision, no dysphagia. CT scan of the abdomen and pelvis showed some patch infiltrates in the lung bases. Infectious Diseases consult is requested to further evaluate and manage. Review of Systems - Review of Systems All systems: reviewed and no additional remarkable complaints except (as per HPI ) Past Patient History - Infectious Disease Hx of Infectious Diseases: None - Tetanus Immunizations Tetanus Immunization: Unknown - Past Social History Smoking Status: Never Smoked - CARDIAC Hx Hypercholesterolemia: Yes Hx Hypertension: Yes - PULMONARY Hx Asthma: Yes Hx Pneumonia: Yes - NEUROLOGICAL HX Cerebrovascular Accident: Yes - HEENT Hx HEENT Problems: Yes (eyeglasses) - RENAL Hx Chronic Kidney Disease: Yes Hx Kidney Stones: Yes - ENDOCRINE/METABOLIC Hx Hypothyroidism: Yes - HEMATOLOGICAL/ONCOLOGICAL Hx Anemia: Yes - INTEGUMENTARY Other/Comment: mid chest steri strips intact loop recorded implanted, multiple round brown spots ble - MUSCULOSKELETAL/RHEUMATOLOGICAL Hx Falls: No Hx Osteoporosis: Yes - GASTROINTESTINAL Hx Gastrointestinal Disorders: Yes (gi bleed, obese) Hx Gastroesophageal Reflux: Yes - GENITOURINARY/GYNECOLOGICAL Hx Genitourinary Disorders: No - PSYCHIATRIC Hx Anxiety: Yes Hx Bipolar Disorder: Yes Hx Depression: Yes Hx Schizophrenia: Yes Hx Substance Use: No - SURGICAL HISTORY Hx Gastric Bypass Surgery: Yes (07/26/1999 235 lb weight loss) Other/Comment: R chest port for iron infusions and hydration. - ANESTHESIA Hx Anesthesia Reactions: No Hx Malignant Hyperthermia: No Meds Allergies/Adverse Reactions: Allergies Allergy/AdvReac Type Severity Reaction Status Date / Time Iodinated Contrast- Oral and Allergy RASH Verified 08/17/17 18:34 IV Dye [Iodinated Contrast Media - IV Dye] iodine Allergy RASH Verified 08/17/17 18:34 meperidine Allergy RASH Verified 08/17/17 18:34 - Medications Medications: Current Medications Acetaminophen (Tylenol 325mg Tab) 650 mg PO Q4 PRN PRN Reason: Pain, moderate (4-7) Last Admin: 08/18/17 05:20 Dose: 650 mg Apixaban (Eliquis) 5 mg PO BID [facility] PRN Reason: Protocol Aripiprazole (Abilify) 30 mg PO HS [facility] PRN Reason: Protocol Clonazepam (Klonopin) 0.5 mg PO TID PRN; Protocol PRN Reason: Agitation Last Admin: 08/18/17 00:17 Dose: 0.5 mg Duloxetine HCl (Cymbalta) 60 mg PO DAILY [facility] Levothyroxine Sodium (Synthroid) 175 mcg PO 0600 [facility] Last Admin: 08/18/17 05:17 Dose: 175 mcg Ondansetron HCl (Zofran Odt) 4 mg PO Q8H PRN PRN Reason: Nausea/Vomiting Pantoprazole Sodium (Protonix Ec Tab) 40 mg PO DAILY [facility] Pregabalin (Lyrica) 50 mg PO BID [facility] Sucralfate (Carafate Oral Susp) 1 gm PO BID [facility] Zolpidem Tartrate (Ambien) 5 mg PO HS PRN; Protocol PRN Reason: Insomnia Last Admin: 08/18/17 00:17 Dose: 5 mg Physical Exam - Constitutional Appears: Non-toxic, Chronically Ill - Head Exam Head Exam: NORMAL INSPECTION - ENT Exam ENT Exam: Mucous Membranes Moist - Neck Exam Neck exam: Negative for: Meningismus - Respiratory Exam Respiratory Exam: Decreased Breath Sounds - Cardiovascular Exam Cardiovascular Exam: +S1, +S2 - GI/Abdominal Exam GI & Abdominal Exam: Soft. absent: Tenderness Results - Vital Signs Recent Vital Signs: Last Vital Signs Temp 97.8 F 08/18/17 00:31 Pulse 71 08/18/17 02:00 Resp 20 08/18/17 00:31 BP 111/74 08/18/17 00:31 Pulse Ox 98 08/18/17 00:06 - Labs Result Diagrams: 08/18/17 06:30 08/18/17 06:30 Labs: Laboratory Results - last 24 hr 08/17/17 23:10 Influenza Typ A,B (EIA) Negative for flu a/b Assessment & Plan - Assessment and Plan (Free Text) Plan: Assessment R/O HCAP R/O acute gastroenteritis history of sepsis due to left sided HCAP, slowly improving history of sepsis due to MRSA bacteremia, probably from port-a-cath S/P removal history of HCAP rheumatoid arthritis history of transient ischemic attack obstructive sleep apnea Morbid obesity with BMI 40 hypothyroidism bipolar disorder shcizoaffective disorder, S/P gastric bypass surgery Plan will start patient on Doxycycline and cefepime pending blood cx, PCT; reviewed CT A/P will monitor clinically
--- NOTE | 2017-08-18 15:11 | CP.PCM.PN ---
Subjective - Date & Time of Evaluation Date of Evaluation: 08/18/17 Time of Evaluation: 14:00 - Subjective Subjective: Jak Mirza D.O. PGY-2, Progress Note 52 year old female with a PMH of atrial fibrillation, SHERRY, gastric bypass surgery, and hypercoagulable state on eliquis who presented to [facility] with chest discomfort. Patient was seen and examined at bedside. Patient states that her pain has improved somewhat. States that the diarrhea she had previously is gone now. No nausea or vomiting. No fevers or chills. Objective - Vital Signs/Intake and Output Vital Signs (last 24 hours): Temp Pulse Resp BP Pulse Ox 97.6 F 66 20 108/55 L 96 08/18/17 06:00 08/18/17 06:00 08/18/17 06:00 08/18/17 06:00 08/18/17 06:00 Intake and Output: 08/18/17 08/18/17 06:59 18:59 Intake Total 120 Balance 120 - Medications Medications: Current Medications Acetaminophen (Tylenol 325mg Tab) 650 mg PO Q4 PRN PRN Reason: Pain, moderate (4-7) Last Admin: 08/18/17 05:20 Dose: 650 mg Apixaban (Eliquis) 5 mg PO BID [facility] PRN Reason: Protocol Last Admin: 08/18/17 10:57 Dose: Not Given Aripiprazole (Abilify) 30 mg PO HS [facility] PRN Reason: Protocol Clonazepam (Klonopin) 0.5 mg PO TID PRN; Protocol PRN Reason: Agitation Last Admin: 08/18/17 00:17 Dose: 0.5 mg Doxycycline Hyclate (Doryx) 100 mg PO Q12 [facility] PRN Reason: Protocol Duloxetine HCl (Cymbalta) 60 mg PO DAILY [facility] Last Admin: 08/18/17 10:56 Dose: Not Given Cefepime HCl (Maxipime 1gm) 1 gm in 100 mls @ 100 mls/hr IVPB Q12 [facility] PRN Reason: Protocol Levothyroxine Sodium (Synthroid) 175 mcg PO 0600 [facility] Last Admin: 08/18/17 05:17 Dose: 175 mcg Ondansetron HCl (Zofran Odt) 4 mg PO Q8H PRN PRN Reason: Nausea/Vomiting Pantoprazole Sodium (Protonix Ec Tab) 40 mg PO DAILY [facility] Last Admin: 08/18/17 10:58 Dose: Not Given Pregabalin (Lyrica) 50 mg PO BID [facility] Last Admin: 08/18/17 10:57 Dose: Not Given Sucralfate (Carafate Oral Susp) 1 gm PO BID [facility] Last Admin: 08/18/17 10:55 Dose: Not Given Zolpidem Tartrate (Ambien) 5 mg PO HS PRN; Protocol PRN Reason: Insomnia Last Admin: 08/18/17 00:17 Dose: 5 mg - Labs Labs: 08/18/17 06:30 08/18/17 06:30 PT 12.5 SECONDS (9.4-12.5) 08/18/17 06:30 INR 1.09 (0.93-1.08) H 08/18/17 06:30 - Constitutional Appears: Non-toxic, No Acute Distress - Head Exam Head Exam: ATRAUMATIC, NORMOCEPHALIC - Eye Exam Eye Exam: EOMI, PERRL - ENT Exam ENT Exam: Mucous Membranes Moist, Normal Oropharynx - Neck Exam Neck Exam: Normal Inspection - Respiratory Exam Respiratory Exam: Clear to Ausculation Bilateral. absent: Wheezes - Cardiovascular Exam Cardiovascular Exam: +S1, +S2 - GI/Abdominal Exam GI & Abdominal Exam: Soft, Normal Bowel Sounds. absent: Tenderness - Extremities Exam Extremities Exam: absent: Calf Tenderness - Neurological Exam Neurological Exam: Alert, Awake, Oriented x3 - Psychiatric Exam Psychiatric exam: Normal Affect, Normal Mood - Skin Skin Exam: Dry, Warm Assessment and Plan - Assessment and Plan (Free Text) Assessment: 52 year old female with a PMH of atrial fibrillation, SHERRY, gastric bypass surgery, and hypercoagulable state on eliquis who presented to [facility] with chest discomfort. Plan: Chest pain most likely 2/2 HCAP SHERRY Hypercoagulable state on Eliquis Obesity Hypothyroidism Bipolar disorder Hx gastric bypass ID consulted, recs appreciated, on doxy/cefepime Cardio consulted, s/p stress test, pending results Given diarrhea history will obtain a legionella sample Continued home medications PRN tylenol for fevers Continue home eliquis Continue psych medications Continue to monitor clinical status Discussed with attending physician
--- NOTE | 2017-08-18 18:01 | CP.PCM.CON ---
<Bee Pickens - Last Filed: 08/18/17 17:39> History of Present Illness - History of Present Illness History of Present Illness: Seen and examined at the bedside earlier today, chart reviewed. Request for GI consult is for chest pain HPI: This is a 52-year-old female with a past medical history of atrial fibrillation,TIA on Eliquis, iron deficiency anemia, gastric bypass, stroke, was seen in our outpatient office yesterday for post procedure visit, had EGD/ COLON with complaints of nausea and vomiting and diarrhea. The patient reported constant vomiting even after eating, bringing up "clear liquid" and has also had liquid BMs for the past 3-4 days. Today she had about 7 bowel movements, denies any melena or bright red blood. She usually recieves IV hydration with Dr. Malave but her had cataract surgery and she is had to be in our office so she has not been able to go this week. Patient was encourage to see Dr. Malave which she did, and during hydration she develop chest pain, she was sent to the emergency room for further evaluation. patient just returned from stress test. She denies any further episodes of nausea or vomiting, patient reports that she was bringing up phlegm, patient chest x-ray no active pulmonary disease. She also had a CT scan of abdomen and pelvis with no acute intra-abdominal finding but report patchy infiltrates in the lungs.this morning patient states that she feels better no reports of nausea, vomiting or abdominal pain no recent episodes of loose stool. Denies shortness of breath or chest pain. 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 Gastric biopsies negative for H. pylori and intestinal metaplasia. On colonoscopy found to have internal hemorrhoids, terminal ileum was normal and biopsies for microscopic colitis was negative. The terminal ileum biopsy was negative for active inflammation. Family history mother CHF Social history: Denies tobacco use, EtOH or substance abuse Allergies: Iodine needed contrast media oral and IV, meperidine Medications: Reviewed as per MAR ROS: Systems reviewed with positive finding see HPI. Past Patient History - Infectious Disease Hx of Infectious Diseases: None - Tetanus Immunizations Tetanus Immunization: Unknown - Past Social History Smoking Status: Never Smoked - CARDIAC Hx Hypercholesterolemia: Yes Hx Hypertension: Yes - PULMONARY Hx Asthma: Yes Hx Pneumonia: Yes - NEUROLOGICAL HX Cerebrovascular Accident: Yes - HEENT Hx HEENT Problems: Yes (eyeglasses) - RENAL Hx Chronic Kidney Disease: Yes Hx Kidney Stones: Yes - ENDOCRINE/METABOLIC Hx Hypothyroidism: Yes - HEMATOLOGICAL/ONCOLOGICAL Hx Anemia: Yes - INTEGUMENTARY Other/Comment: mid chest steri strips intact loop recorded implanted, multiple round brown spots ble - MUSCULOSKELETAL/RHEUMATOLOGICAL Hx Falls: No Hx Osteoporosis: Yes - GASTROINTESTINAL Hx Gastrointestinal Disorders: Yes (gi bleed, obese) Hx Gastroesophageal Reflux: Yes - GENITOURINARY/GYNECOLOGICAL Hx Genitourinary Disorders: No - PSYCHIATRIC Hx Anxiety: Yes Hx Bipolar Disorder: Yes Hx Depression: Yes Hx Schizophrenia: Yes Hx Substance Use: No - SURGICAL HISTORY Hx Gastric Bypass Surgery: Yes (07/26/1999 235 lb weight loss) Other/Comment: R chest port for iron infusions and hydration. - ANESTHESIA Hx Anesthesia Reactions: No Hx Malignant Hyperthermia: No Meds Allergies/Adverse Reactions: Allergies Allergy/AdvReac Type Severity Reaction Status Date / Time Iodinated Contrast- Oral and Allergy RASH Verified 08/17/17 18:34 IV Dye [Iodinated Contrast Media - IV Dye] iodine Allergy RASH Verified 08/17/17 18:34 meperidine Allergy RASH Verified 08/17/17 18:34 - Medications Medications: Current Medications Acetaminophen (Tylenol 325mg Tab) 650 mg PO Q4 PRN PRN Reason: Pain, moderate (4-7) Last Admin: 08/18/17 05:20 Dose: 650 mg Apixaban (Eliquis) 5 mg PO BID [facility] PRN Reason: Protocol Last Admin: 08/18/17 17:21 Dose: 5 mg Aripiprazole (Abilify) 30 mg PO HS [facility] PRN Reason: Protocol Clonazepam (Klonopin) 0.5 mg PO TID PRN; Protocol PRN Reason: Agitation Last Admin: 08/18/17 00:17 Dose: 0.5 mg Doxycycline Hyclate (Doryx) 100 mg PO Q12 [facility] PRN Reason: Protocol Duloxetine HCl (Cymbalta) 60 mg PO DAILY [facility] Last Admin: 08/18/17 10:56 Dose: Not Given Cefepime HCl (Maxipime 1gm) 1 gm in 100 mls @ 100 mls/hr IVPB Q12 [facility] PRN Reason: Protocol Levothyroxine Sodium (Synthroid) 175 mcg PO 0600 [facility] Last Admin: 08/18/17 05:17 Dose: 175 mcg Ondansetron HCl (Zofran Odt) 4 mg PO Q8H PRN PRN Reason: Nausea/Vomiting Pantoprazole Sodium (Protonix Ec Tab) 40 mg PO DAILY [facility] Last Admin: 08/18/17 10:58 Dose: Not Given Pregabalin (Lyrica) 50 mg PO BID [facility] Last Admin: 08/18/17 17:21 Dose: 50 mg Sucralfate (Carafate Oral Susp) 1 gm PO BID [facility] Last Admin: 08/18/17 17:21 Dose: 1 gm Zolpidem Tartrate (Ambien) 5 mg PO HS PRN; Protocol PRN Reason: Insomnia Last Admin: 08/18/17 00:17 Dose: 5 mg Physical Exam - Constitutional Appears: No Acute Distress - Head Exam Head Exam: NORMOCEPHALIC - Eye Exam Eye Exam: Normal appearance. absent: Scleral icterus - ENT Exam ENT Exam: Mucous Membranes Moist - Respiratory Exam Respiratory Exam: NORMAL BREATHING PATTERN. absent: Respiratory Distress - Cardiovascular Exam Cardiovascular Exam: +S1, +S2 - GI/Abdominal Exam GI & Abdominal Exam: Normal Bowel Sounds, Soft. absent: Guarding, Rebound, Tenderness - Extremities Exam Extremities exam: Positive for: pedal edema, pedal pulses present. Negative for : calf tenderness - Neurological Exam Neurological exam: Alert, Oriented x3 - Skin Skin Exam: Dry, Warm Results - Vital Signs Recent Vital Signs: Last Vital Signs Temp 97.6 F 08/18/17 06:00 Pulse 66 08/18/17 06:00 Resp 20 08/18/17 06:00 BP 108/55 L 08/18/17 06:00 Pulse Ox 96 08/18/17 06:00 - Labs Result Diagrams: 08/18/17 06:30 08/18/17 06:30 Labs: Laboratory Results - last 24 hr 08/18/17 16:11 POC Glucose (mg/dL) 105 Assessment & Plan - Assessment and Plan (Free Text) Assessment: Assessment: Chest pain, status post stress test Recent egd/colon 07/2017: gastric erosion History of gastric bypass Chronic nausea/diarrhea Atrial fibrillation TIA Schizophrenia Iron deficiency anemia GERD Plan: Diet as tolerated Continued GI prophylaxis DVT prophylaxis On Eliquis On IV and oral antibiotics On Carafate As per cardiology Thank you for this consult and for allowing us to participate in your patient's care, further recommendations based upon clinical course. Seen and discussed with Dr. Sanchez. <Radhika Sanchez V - Last Filed: 08/19/17 00:07> Meds - Medications Medications: Current Medications Acetaminophen (Tylenol 325mg Tab) 650 mg PO Q4 PRN PRN Reason: Pain, moderate (4-7) Last Admin: 08/18/17 05:20 Dose: 650 mg Apixaban (Eliquis) 5 mg PO BID [facility] PRN Reason: Protocol Last Admin: 08/18/17 17:21 Dose: 5 mg Aripiprazole (Abilify) 30 mg PO HS [facility] PRN Reason: Protocol Last Admin: 08/18/17 21:28 Dose: 30 mg Clonazepam (Klonopin) 0.5 mg PO TID PRN; Protocol PRN Reason: Agitation Last Admin: 08/18/17 21:29 Dose: 0.5 mg Doxycycline Hyclate (Doryx) 100 mg PO Q12 [facility] PRN Reason: Protocol Last Admin: 08/18/17 21:28 Dose: 100 mg Duloxetine HCl (Cymbalta) 60 mg PO DAILY [facility] Last Admin: 08/18/17 10:56 Dose: Not Given Cefepime HCl (Maxipime 1gm) 1 gm in 100 mls @ 100 mls/hr IVPB Q12 [facility] PRN Reason: Protocol Last Admin: 08/18/17 21:29 Dose: 100 mls/hr Levothyroxine Sodium (Synthroid) 175 mcg PO 0600 [facility] Last Admin: 08/18/17 05:17 Dose: 175 mcg Ondansetron HCl (Zofran Odt) 4 mg PO Q8H PRN PRN Reason: Nausea/Vomiting Pantoprazole Sodium (Protonix Ec Tab) 40 mg PO DAILY [facility] Last Admin: 08/18/17 10:58 Dose: Not Given Pregabalin (Lyrica) 50 mg PO BID [facility] Last Admin: 08/18/17 17:21 Dose: 50 mg Sucralfate (Carafate Oral Susp) 1 gm PO BID [facility] Last Admin: 08/18/17 17:21 Dose: 1 gm Zolpidem Tartrate (Ambien) 5 mg PO HS PRN; Protocol PRN Reason: Insomnia Last Admin: 08/18/17 21:28 Dose: 5 mg Results - Vital Signs Recent Vital Signs: Last Vital Signs Temp 97.7 F 08/18/17 17:35 Pulse 76 08/18/17 17:35 Resp 20 08/18/17 17:35 BP 120/71 08/18/17 17:35 Pulse Ox 96 08/18/17 06:00 - Labs Result Diagrams: 08/18/17 06:30 08/18/17 06:30 Labs: Laboratory Results - last 24 hr 08/18/17 08/18/17 16:11 21:08 POC Glucose (mg/dL) 105 76 Attending/Attestation - Attestation I have personally seen and examined this patient.: Yes I have fully participated in the care of the patient.: Yes I have reviewed all pertinent clinical information: Yes Notes (Text): This is an addendum to GI consult report dictated by Bee Pickens APN.The patient was seen and examined earlier. Medical records, lab studies, imagings were reviewed. Last 24 hours events reviewed. Agreed with the above treatment plan as outlined in Bee Pickens APN's notes the with the addition of the following 08/19/17 00:06
[2017-08-18] MEDS: Cefepime 1gm in NS 100ml 1 GM/100 ML BAG IVPB SCH (21:29)
--- NOTE | 2017-08-18 22:41 | CARD ---
APPROVED REPORT EKG Measurement Heart [id number] <Conclusion> Normal sinus rhythm Nonspecific T wave abnormality Abnormal ECG
[2017-08-19] MEDS: Levothyroxine 175 MCG TAB PO SCH (06:17)
[2017-08-19 07:21] LABS: BASO # 0.04 K/mm3 (0.0-2.0); BASO % 0.5 % (0.0-3.0); EOS # 0.2 (0.0-0.7); EOS % 2.7 % (1.5-5.0); GRAN # 3.97 (1.4-6.5); GRAN % 54.2 % (50.0-68.0); HEMOGLOBIN 12.1 g/dL (12.0-16.0); LYMPH # 2.5 (1.2-3.4); LYMPH % 33.7 % (22.0-35.0); MEAN CELL VOLUME 95.1 fl (80.0-105.0); MEAN CORPUSCULAR HEMOGLOBIN 29.4 pg (25.0-35.0); MEAN CORPUSCULAR HGB CONC 30.9 g/dl (31.0-37.0); MEAN PLATELET VOLUME 10.1 fl (7.0-11.0); MONO # 0.7 (0.1-0.6); MONO % 8.9 % (1.0-6.0); RBC 4.12 10^6/uL (3.5-6.1); RED CELL DISTRIBUTION WIDTH 14.9 % (11.5-14.5); WHITE BLOOD COUNT 7.3 10^3/ul (4.5-11.0)
[2017-08-19 08:07] LABS: ALB/GLOB RATIO 1.1 (1.1-1.8); ALBUMIN 3.6 g/dL (3.0-4.8); ALT/SGPT 20 U/L (7-56); AST/SGOT 22 U/L (14-36); BLOOD UREA NITROGEN 13 mg/dL (7-21); CALCIUM 9.2 mg/dL (8.4-10.5); GFR AFRICAN-AMERICAN > 60; GFR NON-AFRICAN AMERICAN > 60
[2017-08-19] MEDS: Cefepime 1gm in NS 100ml 1 GM/100 ML BAG IVPB SCH ×2 (09:52→21:17)
[2017-08-19] MEDS: Sucralfate 1 gm/10 ml Oral Susp UD PO SCH ×2 (09:52→17:29)
[2017-08-19] MEDS: Pantoprazole 40 mg EC Tab PO SCH (09:53)
--- NOTE | 2017-08-19 11:19 | CP.PCM.PN ---
Subjective - Date & Time of Evaluation Date of Evaluation: 08/19/17 Time of Evaluation: 09:55 - Subjective Subjective: Loose bowel movement is better, no fevers, now with burning sensation on urination, breathing better. Objective - Vital Signs/Intake and Output Vital Signs (last 24 hours): Temp Pulse Resp BP Pulse Ox 97.6 F 68 18 105/75 95 08/19/17 06:00 08/19/17 06:00 08/19/17 06:00 08/19/17 06:00 08/19/17 06:00 Intake and Output: 08/19/17 08/19/17 06:59 18:59 Intake Total 1300 Output Total 0 Balance 1300 - Medications Medications: Current Medications Acetaminophen (Tylenol 325mg Tab) 650 mg PO Q4 PRN PRN Reason: Pain, moderate (4-7) Last Admin: 08/19/17 06:21 Dose: 650 mg Apixaban (Eliquis) 5 mg PO BID [facility] PRN Reason: Protocol Last Admin: 08/18/17 17:21 Dose: 5 mg Aripiprazole (Abilify) 30 mg PO HS KEITH PRN Reason: Protocol Last Admin: 08/18/17 21:28 Dose: 30 mg Clonazepam (Klonopin) 0.5 mg PO TID PRN; Protocol PRN Reason: Agitation Last Admin: 08/18/17 21:29 Dose: 0.5 mg Doxycycline Hyclate (Doryx) 100 mg PO Q12 [facility]ITH PRN Reason: Protocol Last Admin: 08/18/17 21:28 Dose: 100 mg Duloxetine HCl (Cymbalta) 60 mg PO DAILY [facility] Last Admin: 08/18/17 10:56 Dose: Not Given Cefepime HCl (Maxipime 1gm) 1 gm in 100 mls @ 100 mls/hr IVPB Q12 KEITH PRN Reason: Protocol Last Admin: 08/18/17 21:29 Dose: 100 mls/hr Levothyroxine Sodium (Synthroid) 175 mcg PO 0600 [facility] Last Admin: 08/19/17 06:17 Dose: 175 mcg Ondansetron HCl (Zofran Odt) 4 mg PO Q8H PRN PRN Reason: Nausea/Vomiting Pantoprazole Sodium (Protonix Ec Tab) 40 mg PO DAILY [facility] Last Admin: 08/18/17 10:58 Dose: Not Given Pregabalin (Lyrica) 50 mg PO BID [facility] Last Admin: 08/18/17 17:21 Dose: 50 mg Sucralfate (Carafate Oral Susp) 1 gm PO BID [facility] Last Admin: 08/18/17 17:21 Dose: 1 gm Zolpidem Tartrate (Ambien) 5 mg PO HS PRN; Protocol PRN Reason: Insomnia Last Admin: 08/18/17 21:28 Dose: 5 mg - Labs Labs: 08/19/17 07:00 PT 12.5 SECONDS (9.4-12.5) 08/18/17 06:30 INR 1.09 (0.93-1.08) H 08/18/17 06:30 - Constitutional Appears: Non-toxic, Chronically Ill - Head Exam Head Exam: NORMAL INSPECTION - ENT Exam ENT Exam: Mucous Membranes Moist - Neck Exam Neck Exam: absent: Meningismus - Respiratory Exam Respiratory Exam: Decreased Breath Sounds - Cardiovascular Exam Cardiovascular Exam: +S1, +S2 - GI/Abdominal Exam GI & Abdominal Exam: Soft. absent: Tenderness Assessment and Plan - Assessment and Plan (Free Text) Plan: Assessment R/O HCAP R/O UTI R/O acute gastroenteritis history of sepsis due to left sided HCAP, slowly improving history of sepsis due to MRSA bacteremia, probably from port-a-cath S/P removal history of HCAP rheumatoid arthritis history of transient ischemic attack obstructive sleep apnea Morbid obesity with BMI 40 hypothyroidism bipolar disorder shcizoaffective disorder, S/P gastric bypass surgery Plan continue Doxycycline and cefepime day 2; will check urine cx; blood cx are negative x 1 day, PCT is pending; reviewed CT A/P will continue to monitor clinically discussed with Dr. Pleitez previously
[2017-08-19 13:37] LABS: URINE BILIRUBIN NEGATIVE (NEGATIVE); URINE BLOOD SMALL (NEGATIVE); URINE GLUCOSE (UA) NEGATIVE (NEGATIVE); URINE LEUKOCYTE ESTERASE SMALL Leu/uL (NEGATIVE); URINE NITRATE NEGATIVE (NEGATIVE); URINE PROTEIN NEGATIVE mg/dL (<30 mg/dL); URINE UROBILINOGEN 0.2 E.U./dL (<1 E.U./dL)
[2017-08-19 13:38] LABS: URINE APPEARANCE CLEAR (CLEAR); URINE COLOR YELLOW (YELLOW)
[2017-08-19 13:43] LABS: URINE BACTERIA FEW (NEG); URINE RBC 0 - 2 /hpf (0-2)
[2017-08-19] MEDS: Apap-Butalbital-Caffeine 325-50-40mg Tab PO PRN (17:29)
--- NOTE | 2017-08-19 20:19 | PN ---
DATE: 08/19/2017 This is [facility] visit on For Dr. Malave. SUBJECTIVE: The patient is a 52-year-old female, seen sitting up in a chair with her at the bedside, now being diagnosed with pneumonia for which she was having chest discomfort, for which she was originally prompted to be admitted for evaluation. The patient otherwise is now reporting a headache, frontal and occipital, which is unrelieved by Tylenol. Also, significant runningness of her nose, possibly related to humidification of the air, with patient denying any sneezing or coughing at this time. She also reports some discomfort on urination, with urine cultures sent. She also had a stress test, which will be read soon. PHYSICAL EXAMINATION: VITAL SIGNS: Temperature 97.6, pulse 86, respirations 18, blood pressure 105/75, pulse ox 95%. HEENT: Unremarkable except for nasal congestion. NECK: Supple. HEART: Regular rate. LUNGS: Clear. ABDOMEN: Soft, obese, nontender. EXTREMITIES: Faint 1+ edema. NEUROLOGIC: Awake, alert, and oriented x3. SKIN: Warm, dry, and clear. LABORATORY DATA: The patient's labs were done to include a CBC, which showed a white blood cell count of 7.3, hemoglobin 12.1, hematocrit 39.2, platelet count 271,000. She also had a chem metabolic panel, which was within normal range, nonfasting glucose of 155, procalcitonin of less than 0.05. The patient's urine specimen shows small amount of blood, small amount of leukocyte esterase, with blood cultures negative after 24 hours being noted. ASSESSMENT: For this patient is that of suspected pneumonia; chest pain, rule out cardiac etiology; history of hypercoagulable state, atrial fibrillation, gastric bypass with intermittent small bowel obstruction, schizophrenia, depressive disorder, orthostatic hypotension. After conversation with Dr. Malave, we will continue the present medical recommendations. We will ask for consult with Dr. Hooks for her headaches and offer Fioricet in the meantime. We will also ask for consult with Dr. Sears, Pulmonology, and ask for a CT scan of the chest as the original diagnosis of pneumonia was made on a CT scan of her abdomen lower part of her lungs. We will monitor clinically and with labs. The patient will also get [place] nasal spray and we will discontinue her telemetry with the stress test pending. This is a complex patient with a comprehensive medically necessary and appropriate exam carried out in excess of 30 minutes cumq-oe-[id number] time with the patient and her at the bedside, answering their questions to their satisfaction. Ronal Kahn MD
[2017-08-20] MEDS: Levothyroxine 175 MCG TAB PO SCH (05:57)
[2017-08-20 06:32] LABS: BASO # 0.03 K/mm3 (0.0-2.0); BASO % 0.5 % (0.0-3.0); EOS # 0.2 (0.0-0.7); EOS % 3.1 % (1.5-5.0); GRAN # 3.54 (1.4-6.5); GRAN % 55.3 % (50.0-68.0); HEMOGLOBIN 11.3 g/dL (12.0-16.0); LYMPH # 2.1 (1.2-3.4); LYMPH % 32.2 % (22.0-35.0); MEAN CELL VOLUME 93.2 fl (80.0-105.0); MEAN CORPUSCULAR HEMOGLOBIN 29.7 pg (25.0-35.0); MEAN CORPUSCULAR HGB CONC 31.8 g/dl (31.0-37.0); MONO # 0.6 (0.1-0.6); MONO % 8.9 % (1.0-6.0); RBC 3.81 10^6/uL (3.5-6.1); RED CELL DISTRIBUTION WIDTH 14.6 % (11.5-14.5); WHITE BLOOD COUNT 6.4 10^3/ul (4.5-11.0)
[2017-08-20 06:40] LABS: ALBUMIN 3.3 g/dL (3.0-4.8); ALT/SGPT 25 U/L (7-56); AST/SGOT 25 U/L (14-36); BLOOD UREA NITROGEN 15 mg/dL (7-21); CALCIUM 9.2 mg/dL (8.4-10.5); GFR AFRICAN-AMERICAN > 60; GFR NON-AFRICAN AMERICAN > 60
[2017-08-20] MEDS: Sucralfate 1 gm/10 ml Oral Susp UD PO SCH ×2 (09:01→17:07)
[2017-08-20] MEDS: Pantoprazole 40 mg EC Tab PO SCH (09:02)
[2017-08-20] MEDS: Cefepime 1gm in NS 100ml 1 GM/100 ML BAG IVPB SCH ×2 (09:02→21:08)
[2017-08-20] MEDS: Apap-Butalbital-Caffeine 325-50-40mg Tab PO PRN ×2 (09:05→16:07)
--- NOTE | 2017-08-20 10:27 | CT ---
PROCEDURE: CT Chest without contrast HISTORY: Pneumonia? COMPARISON: Plain radiographs from 04/04/[address] chest from 09/15/2016 TECHNIQUE: Contiguous axial images were obtained through the chest without intravenous contrast enhancement. Sagittal and coronal reconstructions were performed. Radiation dose (DLP): 759.51 mGy-cm. This CT exam was performed using one or more of the following dose reduction techniques: Automated exposure control, adjustment of the mA and/or kV according to patient size, and/or use of iterative reconstruction technique. FINDINGS: LUNGS: The lungs are well inflated. There is focal airspace disease in the medial superior segment of the right lower lobe. There are 5 mm and 3 mm subpleural nodules in the right lower lobe. There is subsegmental atelectasis in the right middle lobe. Also noted is a 4 mm nodule in the left lower lobe. No endobronchial lesions. MEDIASTINUM: The aorta is not dilated. The heart is normal in size. No pericardial effusion. No pathologic mediastinal lymphadenopathy. PLEURA: No pleural fluid. No pneumothorax. BONES: No fracture. No destructive lesion. Within normal limits for the patient's age. UPPER ABDOMEN: The adrenal glands are normal in size. There is a small nonobstructing stone in the upper pole of the left kidney. . OTHER FINDINGS: Status post gastric bypass surgery. IMPRESSION: 1. Question of focal pneumonia in the medial aspect of the superior segment of the right lower lobe. 2. Few stable nodules in both lower lobes which may be post inflammatory in etiology. A preliminary report was provided by [employer].
--- NOTE | 2017-08-20 12:34 | CP.PCM.PN ---
Subjective - Date & Time of Evaluation Date of Evaluation: 08/20/17 Time of Evaluation: 11:20 - Subjective Subjective: Still having some burning sensation on urination but a little better, no fevers , no diarrhea, no abdominal pain. Breathing is better. No chest pain. Objective - Vital Signs/Intake and Output Vital Signs (last 24 hours): Temp Pulse Resp BP Pulse Ox 97.4 F L 65 18 124/79 96 08/20/17 06:00 08/20/17 06:00 08/20/17 06:00 08/20/17 06:00 08/20/17 06:00 Intake and Output: 08/20/17 08/20/17 06:59 18:59 Intake Total 580 Output Total 1000 Balance -420 - Medications Medications: Current Medications Acetaminophen (Tylenol 325mg Tab) 650 mg PO Q4 PRN PRN Reason: Pain, moderate (4-7) Last Admin: 08/19/17 11:23 Dose: 650 mg Acetaminophen/Butalbital/Caffeine (Fioricet) 1 tab PO Q6H PRN PRN Reason: Headache Last Admin: 08/19/17 17:29 Dose: 1 tab Apixaban (Eliquis) 5 mg PO BID KEITH PRN Reason: Protocol Last Admin: 08/19/17 17:29 Dose: 5 mg Aripiprazole (Abilify) 30 mg PO HS KEITH PRN Reason: Protocol Last Admin: 08/19/17 21:16 Dose: 30 mg Clonazepam (Klonopin) 0.5 mg PO TID PRN; Protocol PRN Reason: Agitation Last Admin: 08/19/17 21:16 Dose: 0.5 mg Doxycycline Hyclate (Doryx) 100 mg PO Q12 [facility] PRN Reason: Protocol Last Admin: 08/19/17 21:16 Dose: 100 mg Duloxetine HCl (Cymbalta) 60 mg PO DAILY [facility] Last Admin: 08/19/17 09:52 Dose: 60 mg Cefepime HCl (Maxipime 1gm) 1 gm in 100 mls @ 100 mls/hr IVPB Q12 [facility] PRN Reason: Protocol Last Admin: 08/19/17 21:17 Dose: 100 mls/hr Levothyroxine Sodium (Synthroid) 175 mcg PO 0600 [facility] Last Admin: 08/20/17 05:57 Dose: 175 mcg Ondansetron HCl (Zofran Odt) 4 mg PO Q8H PRN PRN Reason: Nausea/Vomiting Pantoprazole Sodium (Protonix Ec Tab) 40 mg PO DAILY [facility] Last Admin: 08/19/17 09:53 Dose: 40 mg Pregabalin (Lyrica) 50 mg PO BID [facility] Last Admin: 08/19/17 17:29 Dose: 50 mg Sodium Chloride ([place] Nasal [place]) 0 ml NS Q4 PRN PRN Reason: Nasal congestion Last Admin: 08/19/17 18:26 Dose: 2 sprays Sucralfate (Carafate Oral Susp) 1 gm PO BID [facility] Last Admin: 08/19/17 17:29 Dose: 1 gm Zolpidem Tartrate (Ambien) 5 mg PO HS PRN; Protocol PRN Reason: Insomnia Last Admin: 08/19/17 21:16 Dose: 5 mg - Labs Labs: 08/20/17 06:00 08/20/17 06:00 PT 12.5 SECONDS (9.4-12.5) 08/18/17 06:30 INR 1.09 (0.93-1.08) H 08/18/17 06:30 - Constitutional Appears: Chronically Ill - Head Exam Head Exam: NORMAL INSPECTION - ENT Exam ENT Exam: Mucous Membranes Moist - Neck Exam Neck Exam: absent: Meningismus - Respiratory Exam Respiratory Exam: Decreased Breath Sounds - Cardiovascular Exam Cardiovascular Exam: +S1, +S2 - GI/Abdominal Exam GI & Abdominal Exam: Soft. absent: Tenderness Assessment and Plan - Assessment and Plan (Free Text) Plan: Assessment R/O HCAP R/O UTI R/O acute gastroenteritis history of sepsis due to left sided HCAP, slowly improving history of sepsis due to MRSA bacteremia, probably from port-a-cath S/P removal history of HCAP rheumatoid arthritis history of transient ischemic attack obstructive sleep apnea Morbid obesity with BMI 40 hypothyroidism bipolar disorder shcizoaffective disorder, S/P gastric bypass surgery Plan continue Doxycycline and cefepime day 3; follow up urine cx; blood cx are negative; PCT is <0.05; reviewed CT A/P will continue to monitor clinically
--- NOTE | 2017-08-20 14:09 | CT ---
PROCEDURE: CT HEAD WITHOUT CONTRAST. HISTORY: Headache COMPARISON: 02/01/2017. TECHNIQUE: Axial computed tomography images were obtained through the head/brain without intravenous contrast. Radiation dose: Total exam DLP = mGy-cm. This CT exam was performed using one or more of the following dose reduction techniques: Automated exposure control, adjustment of the mA and/or kV according to patient size, and/or use of iterative reconstruction technique. FINDINGS: HEMORRHAGE: No intracranial hemorrhage. BRAIN: [place]-white matter differentiation is preserved. There is no mass, mass effect or abnormal extra-axial fluid collection. VENTRICLES: The ventricles are normal in size, shape and configuration. CALVARIUM: The skull base and calvarium are normal. PARANASAL SINUSES: Predominantly clear. MASTOID AIR CELLS: Predominantly clear. OTHER FINDINGS: None. IMPRESSION: No acute intracranial abnormality.
--- NOTE | 2017-08-20 16:20 | PN ---
DATE: 08/20/2017 This is [facility]'s hospital visit on the medical floor. For Dr. Malave. SUBJECTIVE: The patient is a 52-year-old female, seen sitting up in bed, reporting that her headaches have modestly improved today. However, we will ask for consult with Dr. Hooks, Neurology, and this is the second episode where the headaches were excruciating with some relief of pain with Fioricet. She is now being evaluated for chest discomfort, for which a stress test was done, has not been read yet with the patient now also being treated for possible pneumonia which was seen on a CT scan of the abdomen with cuts to the lower part of the lungs and now a dedicated CT scan of the chest was done, which was read as question of focal pneumonia in the medial aspect of superior segment of the right lower lobe, few stable nodules, both lower lungs, which maybe post inflammatory in etiology. She is otherwise reporting that her chest pain is no longer a problem for her. OBJECTIVE: VITAL SIGNS: Temperature 98.7, pulse 85, respirations 21, blood pressure 125/85, pulse ox 98%. HEENT: Unremarkable. NECK: Supple. HEART: Regular rate. Occasional ectopic beat. LUNGS: Clear. ABDOMEN: Obese, soft, nontender. EXTREMITIES: +1 edema. NEUROLOGIC: Awake and alert. SKIN: Warm and dry. LABORATORY DATA: The patient's labs were done. White blood cell count of 6.4, hemoglobin 11.3, hematocrit 35.5, platelet count 249,000 with a chem metabolic panel completely within normal range with a Legionella pneumophila testing negative. Influenza testing was also negative. However, her urinalysis on 08/19, did show urine small amount of blood, small amount of urine leukocyte esterase with blood cultures being negative. ASSESSMENT: For this patient is that of possible pneumonia; chest pain, rule out cardiac etiology, stress test pending; hypercoagulable state; history of atrial fibrillation; gastric bypass with intermittent small bowel obstruction; headache; history of schizophrenia; depressive disorder; orthostatic hypotension. PLAN: Plan for this patient after conversation with Dr. Malave is to continue present medical regimen. We will also ask for consult with Dr. Hooks, Neurology, for her headaches. We will also ask to consult Dr. Sears of Pulmonology to determine whether there is need to continue IV antibiotics as per infectious disease consultants' recommendations. We will continue her Eliquis with her other medications as indicated and prognosis of this patient is guarded. This is a complex patient with a comprehensive medically necessary and appropriate visit carried out in excess of 25 minutes with the other consultants including Dr. Hooks and Dr. Paz consulting regarding her care, in addition to the nurse on the floor with the patient. The patient's questions were answered to her satisfaction. Ronal Kahn MD
--- NOTE | 2017-08-21 01:46 | CON ---
DATE: HISTORY OF PRESENT ILLNESS: This is a 52-year-old white female with past medical history of atrial fibrillation, iron deficiency anemia and history of gastric bypass, TIA and hypercoagulable state, and came to the emergency room from Dr. Malave's office, and she got discomfort in the chest while she was getting IV hydration, and she also has a history of anxiety, schizophrenia and depression, and called to evaluate the patient for headache. The headache was 9/10, now has gone down to 3/10 with Fioricet. PAST MEDICAL HISTORY: As above. CAT scan of the head was done which was reported negative. ALLERGY: TO DEMEROL AND DYE. REVIEW OF SYSTEMS: A 10-point review of systems was negative as noted above except headache. PHYSICAL EXAMINATION: HEENT: Normocephalic, atraumatic. NECK: Supple. NEUROLOGIC: Alert, awake and oriented x3. No aphasia. Cranial nerves II through XII were tested. Pupils reactive. EOM intact. Visual cardoza full. No facial asymmetry. Tongue midline. Motor examination, moves all the extremities equally. Tone normal. Deep tendon reflexes 1+. Both plantars are downgoing. Sensory appears intact. Cerebellar, gait, able to ambulate. ASSESSMENT AND PLAN: Continue present management. CT of head was ordered and reported negative for bleed or stroke. Continue Fioricet. We will follow up. Solitario Hooks MD
[2017-08-21] MEDS: Levothyroxine 175 MCG TAB PO SCH (06:18)
[2017-08-21 06:45] LABS: BASO # 0.03 K/mm3 (0.0-2.0); BASO % 0.5 % (0.0-3.0); EOS # 0.2 (0.0-0.7); GRAN # 2.99 (1.4-6.5); GRAN % 49.2 % (50.0-68.0); HEMOGLOBIN 11.5 g/dL (12.0-16.0); LYMPH # 2.3 (1.2-3.4); LYMPH % 38.6 % (22.0-35.0); MEAN CELL VOLUME 92.8 fl (80.0-105.0); MEAN CORPUSCULAR HEMOGLOBIN 29.5 pg (25.0-35.0); MEAN CORPUSCULAR HGB CONC 31.8 g/dl (31.0-37.0); MEAN PLATELET VOLUME 9.8 fl (7.0-11.0); MONO # 0.5 (0.1-0.6); MONO % 8.7 % (1.0-6.0); RBC 3.9 10^6/uL (3.5-6.1); RED CELL DISTRIBUTION WIDTH 14.8 % (11.5-14.5); WHITE BLOOD COUNT 6.1 10^3/ul (4.5-11.0)
[2017-08-21 06:54] LABS: ALB/GLOB RATIO 1.1 (1.1-1.8); ALBUMIN 3.4 g/dL (3.0-4.8); ALT/SGPT 18 U/L (7-56); AST/SGOT 23 U/L (14-36); BLOOD UREA NITROGEN 15 mg/dL (7-21); CALCIUM 9.4 mg/dL (8.4-10.5); GFR AFRICAN-AMERICAN > 60; GFR NON-AFRICAN AMERICAN > 60
[2017-08-21] MEDS: Levalbuterol 0.63 MG/3 ML Inhal Soln UD IH SCH ×3 (07:38→19:53)
--- NOTE | 2017-08-21 09:17 | CON ---
DATE: PULMONARY CONSULTATION REFERRING PHYSICIAN: Ronal Kahn MD REASON FOR CONSULTATION: Pneumonia, cough, shortness of breath. HISTORY OF PRESENT ILLNESS: This is a 52-year-old female with past medical history significant for atrial fibrillation, anemia, history of gastric bypass surgery in the remote past. Hypercoagulable, been on anticoagulation with shortness of breath, some cough, chest discomfort. She had been having some rhinitis, on and off headache, some body aches. No nausea, no dysuria. No leg pain or leg swelling. PAST MEDICAL HISTORY: As per history present illness. Hypothyroid, history of pituitary adenoma in the past, schizophrenia, depression, sleep apnea syndrome, also has a loop recorder. ALLERGIES: DEMEROL AND IV CONTRAST MATERIAL. SOCIAL HISTORY: Nonsmoker, nondrinker. FAMILY HISTORY: Positive for CVA and cancer. MEDICATIONS: She is on Abilify 30 mg at bedtime, Ambien 5 mg at bedtime p.r.n., Carafate 1 g twice a day, Cymbalta 60 mg daily, doxycycline 100 mg twice a day, Eliquis 5 mg twice a day, Fioricet 1 tablet q. 6 hours p.r.n., Klonopin 0.5 mg three times a day p.r.n., Lyrica 50 mg twice a day, cefepime 1 g IV q. 12 hours, nasal saline q. 4 hours p.r.n., Protonix 40 mg daily, Synthroid 175 mcg daily, Tylenol p.r.n., Zofran p.r.n. REVIEW OF SYSTEMS: Has some on and off headache, rhinitis, cough, clear sputum. Presently no chest pain. No nausea, vomiting, no diarrhea. No leg pain or leg swelling. PHYSICAL EXAMINATION: GENERAL: Sitting on the side of the bed, in no acute distress. VITAL SIGNS: Temperature 98, heart rate is 85, respiratory rate is 20, blood pressure 140/87, pulse ox 96% on room air. HEENT: Moist mucous membrane. Crowded airway. NECK: Supple. No JVD. LUNGS: Has a fair airflow with few rhonchi. HEART: S1 and S2. ABDOMEN: Soft, nontender. No organomegaly. EXTREMITIES: No edema. NEUROLOGIC: Awake and alert, follows simple command. LABORATORY DATA: Shows hemoglobin 11.3, hematocrit 35.5, WBC 6.4, platelet is 249. Sodium 143, potassium 3.8, chloride 106, bicarbonate 28, BUN 15, creatinine 0.8, glucose 79, calcium 9.2, AST 25, ALT 25, alk phos is 111. Albumin is 3.3. Urinalysis shows wbc 5 to 10, rbc 0 to 2. Influenza antibodies are negative. Microbiology, blood culture, urine culture, there is no growth. CAT scan of the chest was done, which shows focal pneumonia in the medial aspects of the superior segment of the right lower lobe, a few stable nodules in both lower lobes. Also had a CAT scan of the head done, which was unremarkable. Has a myocardial stress test done, report is pending. IMPRESSION AND PLAN: Pneumonia with cough and shortness of breath, atrial fibrillation, history of gastric bypass surgery in the remote past, may have sleep apnea syndrome, schizophrenia, depression. I agree with the present management. Continue antibiotics. Keep head at 45 degrees, anticoagulation, gastric prophylaxis, fall precaution. We will recommend outpatient pulmonary function test and attended sleep study. Thank you and we will follow with you. Gisselle Sears MD
--- NOTE | 2017-08-21 09:24 | CON ---
DATE: 08/18/2017 CARDIOLOGY CONSULTATION REASON FOR THE CONSULTATION: Chest pain beneath the clavicle with tenderness, cardiac evaluation. BRIEF CLINICAL HISTORY: This is a 52-year-old female with past medical history significant for anemia, history of paroxysmal atrial fibrillation, transfusion-dependent anemia, gastric bypass, history of pituitary intervention 20 years ago, who came in with complaint of pain in the left side of the chest beneath the clavicle with very tender, atypical chest pain. Cardiology consult called for cardiac evaluation. Patient denies any chest pain, dyspnea on exertion, or chest pain on exertion. Patient was recently admitted 6 months ago when a CAT scan done and found to be large pericardial effusion, but echo shows trace pericardial effusion. PAST MEDICAL HISTORY: Significant for TIA, bipolar disorder, schizophrenia, sleep disorder, sleep apnea, gastric bypass, hypothyroidism, rheumatoid arthritis, anemia, transfusion dependent, Port-A-Cath, history of pituitary intervention 20 years ago. PAST SURGICAL HISTORY: Significant for gastric bypass in 2001, history of pituitary intervention 20 years ago, history of Port-A-Cath removal and then replaced again. SOCIAL HISTORY: Denies any history of alcohol abuse. PREVIOUS CARDIAC WORKUP: As follows: Patient had echocardiography 11/18/2016, ejection fraction of 55 to 60%, trace aortic regurgitation, [id number] mitral regurgitation, [id number] tricuspid regurgitation, right ventricular systolic pressure of 26, no pericardial effusion, no vegetation noted. EKG from a previous admission on 11/18/1999 revealed normal sinus, no acute ST-T changes noted. Patient had a repeat echocardiography on 02/02/2017 done that showed normal LV size, normal LV function, trace aortic regurgitation, trace mitral regurgitation, mild tricuspid regurgitation, RV systolic pressure of 34, IVC dilatated, [id number]-[id number] circumferential pericardial effusion, no vegetation or thrombus noted. CURRENT MEDICATIONS: Patient is taking at home, folic acid 1 mg daily, enoxaparin 90 mg daily, Cymbalta, Eliquis 5 mg b.i.d., Abilify 30 mg p.o. b.i.d., Ambien 10 mg p.o. at bedtime, Lyrica, Protonix, Synthroid, glucagon. ALLERGIES: ALLERGY TO IODINATED CONTRAST DYE, MEPERIDINE. REVIEW OF SYSTEMS: As per HPI. PHYSICAL EXAMINATION: VITAL SIGNS: As follows: Temperature afebrile, heart rate 65, blood pressure 108/55. HEENT: PERRLA. Extraocular muscles intact. NECK: Supple. No carotid bruits and thyromegaly. CHEST: Clear to auscultation. HEART: S1 and S2, regular. ABDOMEN: Soft. EXTREMITIES: Clubbing and cyanosis negative. LABORATORY DATA: Blood workup as follows: WBC is 5.9, hemoglobin 10.5, hematocrit 33.6, and platelet count 205. Chemistry shows sodium , potassium 4, chloride 108, carbon dioxide 28, anion gap of 11, BUN 13, creatinine 0.9. EKG showed normal sinus, no acute ST-T changes noted. Tenderness noted in the left side of the chest. IMPRESSION: Atypical chest pain; morbid obesity, body mass index 37 kg/m2; history of paroxysmal atrial fibrillation, on anticoagulation; history of gastric bypass; iron deficiency anemia, transfusion dependent anemia; history of pituitary intervention 20 years ago; history of Port-A-Cath. So far, no evidence of myocardial infarction. History of small pericardial effusion. RECOMMENDATION: Suggest to get IV Lexiscan to rule out any underlying coronary artery disease because of multiple risk factors. Her chest pain is very atypical and is reproducible and is musculoskeletal. We will get the lipid profile, TSH, hemoglobin A1c. Also, we will give one dose of ibuprofen. I will keep her n.p.o. and . ADDENDUM: We will not give ibuprofen because patient is n.p.o. for endoscopy as well, so will hold NSAIDs for now, but we will get the stress test and add on lipid profile, TSH, hemoglobin A1c. So far, chest pain appears to be very atypical, but given the multiple risk factors, suggest a stress test today. Thank you, Dr. Malave, for providing us the opportunity in taking care of the patient, Julieth Szymanski. Gisselle Parker MD
[2017-08-21] MEDS: Cefepime 1gm in NS 100ml 1 GM/100 ML BAG IVPB SCH ×2 (09:49→21:11)
[2017-08-21] MEDS: Pantoprazole 40 mg EC Tab PO SCH (09:49)
[2017-08-21] MEDS: Sucralfate 1 gm/10 ml Oral Susp UD PO SCH ×2 (09:49→17:14)
--- NOTE | 2017-08-21 10:45 | PN ---
DATE: 08/20/2017 SUBJECTIVE: The patient is comfortable. No complaints of any abdominal pain. Tolerating the diet. The patient's was at bedside. PHYSICAL EXAMINATION: VITAL SIGNS: Afebrile. Blood pressure is 124/79, pulse 65, respirations 18. HEENT: Atraumatic, anicteric. NECK: Supple. HEART: S1 and S2 heard. LUNGS: Bilateral air entry present. ABDOMEN: Soft. EXTREMITIES: No cyanosis. No clubbing. NEUROLOGIC: Alert, oriented, moves all the extremities. LABORATORY DATA: Hemoglobin 11.3, hematocrit 35.5, WBC 6.4, platelets 249. Chemistry is essentially unremarkable. IMPRESSION: This 52-year-old with a history of status post gastric bypass; status post esophagogastroduodenoscopy and colonoscopy; iron deficiency anemia, on IV iron infusions as an outpatient, multiple transfusions in the past, had an endoscopy and a colonoscopy recently, had small gastric erosions, and had a push enteroscopy done, which showed small gastric erosions and also a few erosions seen in the jejunum. Biopsy was negative for Helicobacter pylori and colon biopsy negative for colitis and jejunal biopsy negative for active inflammation. Patient admitted with vomiting, diarrhea, weakness. Patient is presently but CAT scan showed some lung infiltrate that has been treated with antibiotics. Patient has been also followed by the storage manager. The patient's hemoglobin remains stable. Patient is recommended to have an MR enterography as an outpatient, also requested for inflammatory bowel disease serology, follow up of the hemoglobin and hematocrit. Further GI workup will be decided after reviewing the MR enterography. Thank you very much for allowing us to participate in the care of the patient. Radhika Sanchez MD
--- NOTE | 2017-08-21 11:26 | CP.PCM.PN ---
Subjective - Date & Time of Evaluation Date of Evaluation: 08/21/17 Time of Evaluation: 09:15 - Subjective Subjective: Comfortable in bed, no abdominal pain, no fevers, no dysuria, no nausea or vomiting. Objective - Vital Signs/Intake and Output Vital Signs (last 24 hours): Temp Pulse Resp BP Pulse Ox 97.7 F 81 20 120/79 93 L 08/21/17 05:28 08/21/17 05:28 08/21/17 05:28 08/21/17 05:28 08/21/17 05:28 Intake and Output: 08/20/17 08/21/17 18:59 06:59 Intake Total 460 Output Total 1050 Balance -590 - Medications Medications: Current Medications Acetaminophen (Tylenol 325mg Tab) 650 mg PO Q4 PRN PRN Reason: Pain, moderate (4-7) Last Admin: 08/20/17 21:32 Dose: 650 mg Acetaminophen/Butalbital/Caffeine (Fioricet) 1 tab PO Q6H PRN PRN Reason: Headache Last Admin: 08/20/17 16:07 Dose: 1 tab Apixaban (Eliquis) 5 mg PO BID KEITH PRN Reason: Protocol Last Admin: 08/20/17 17:07 Dose: 5 mg Aripiprazole (Abilify) 30 mg PO HS KEITH PRN Reason: Protocol Last Admin: 08/20/17 21:07 Dose: 30 mg Clonazepam (Klonopin) 0.5 mg PO TID PRN; Protocol PRN Reason: Agitation Last Admin: 08/20/17 21:07 Dose: 0.5 mg Doxycycline Hyclate (Doryx) 100 mg PO Q12 [facility]ITH PRN Reason: Protocol Last Admin: 08/20/17 21:07 Dose: 100 mg Duloxetine HCl (Cymbalta) 60 mg PO DAILY [facility] Last Admin: 08/20/17 09:01 Dose: 60 mg Cefepime HCl (Maxipime 1gm) 1 gm in 100 mls @ 100 mls/hr IVPB Q12 KEITH PRN Reason: Protocol Last Admin: 08/20/17 21:08 Dose: 100 mls/hr Levalbuterol HCl (Xopenex) 0.63 mg IH TIDRESP KEITH Levothyroxine Sodium (Synthroid) 175 mcg PO 0600 [facility] Last Admin: 08/21/17 06:18 Dose: 175 mcg Ondansetron HCl (Zofran Odt) 4 mg PO Q8H PRN PRN Reason: Nausea/Vomiting Pantoprazole Sodium (Protonix Ec Tab) 40 mg PO DAILY [facility] Last Admin: 08/20/17 09:02 Dose: 40 mg Pregabalin (Lyrica) 50 mg PO BID [facility] Last Admin: 08/20/17 17:07 Dose: 50 mg Sodium Chloride ([place] Nasal [place]) 0 ml NS Q4 PRN PRN Reason: Nasal congestion Last Admin: 08/19/17 18:26 Dose: 2 sprays Sucralfate (Carafate Oral Susp) 1 gm PO BID [facility] Last Admin: 08/20/17 17:07 Dose: 1 gm Zolpidem Tartrate (Ambien) 5 mg PO HS PRN; Protocol PRN Reason: Insomnia Last Admin: 08/20/17 21:08 Dose: 5 mg - Labs Labs: 08/20/17 06:00 08/20/17 06:00 PT 12.5 SECONDS (9.4-12.5) 08/18/17 06:30 INR 1.09 (0.93-1.08) H 08/18/17 06:30 - Constitutional Appears: Non-toxic, Chronically Ill - Head Exam Head Exam: NORMAL INSPECTION - ENT Exam ENT Exam: Mucous Membranes Moist - Neck Exam Neck Exam: absent: Meningismus - Respiratory Exam Respiratory Exam: Decreased Breath Sounds Additional comments: right anterior chest wall port-a-cath site clean and intact - Cardiovascular Exam Cardiovascular Exam: +S1, +S2 - GI/Abdominal Exam GI & Abdominal Exam: Soft. absent: Tenderness Assessment and Plan - Assessment and Plan (Free Text) Plan: Assessment R/O HCAP R/O UTI R/O acute gastroenteritis history of sepsis due to left sided HCAP, slowly improving history of sepsis due to MRSA bacteremia, probably from port-a-cath S/P removal history of HCAP rheumatoid arthritis history of transient ischemic attack obstructive sleep apnea Morbid obesity with BMI 40 hypothyroidism bipolar disorder shcizoaffective disorder, S/P gastric bypass surgery Plan continue Doxycycline and cefepime day 4; urine cx are negative; blood cx are negative; PCT is <0.05; reviewed CT A/P - complete 5-7 days of therapy will continue to monitor clinically
--- NOTE | 2017-08-21 13:11 | PN ---
DATE: 08/21/2017 REASON FOR CONSULTATION AND FOLLOWUP: Atypical chest pain, . SUBJECTIVE: The patient denies any chest pain now. She denies shortness of breath, denies any palpitations. OBJECTIVE: GENERAL: Not in apparent distress. VITAL SIGNS: Temperature afebrile, heart rate 81, blood pressure 120/79. HEENT: PERRLA. Extraocular muscles intact. NECK: Supple. No carotid bruits or thyromegaly. CHEST: Clear to auscultation. ABDOMEN: Soft. EXTREMITIES: Clubbing and cyanosis, negative. LABORATORY DATA: Blood workup as follows: WBC 6.1, hemoglobin , hematocrit 36.2, platelet count 268,000. Chemistry shows sodium 142, potassium 3.9, chloride 104, carbon dioxide 29, anion gap of 14, BUN 15, creatinine 0.5. IMPRESSION: Atypical chest pain; so far, no evidence of acute myocardial infarction, the patient underwent a stress test, waiting for the final result to be done; history of schizophrenia psychiatric disorder; history of hypercoagulable state, on Eliquis; morbid obesity; history of gastric bypass; history of hypothyroidism; questionable history of insulinoma; benign neoplasm of the pituitary gland; iron-deficiency anemia requiring blood transfusion; transfusion-dependent anemia; history of paroxysmal atrial fibrillation, now the patient is in normal sinus; last echo on 11/18/2016 showed preserved ejection fraction 55% to 60%, trace aortic regurgitation, [id number]-[id number] mitral regurgitation, mild tricuspid regurgitation, right ventricular systolic pressure of 26, trace pulmonary insufficiency, no vegetation or thrombus noted. Repeat echo in 02/02/2017 showed normal left ventricular function, trace mitral regurgitation, no vegetation, [id number]-[id number] circumferential pericardial effusion, mild tricuspid regurgitation, right ventricular systolic pressure of 34. RECOMMENDATIONS: Continue low-dose beta-luisa to go back into atrial fibrillation. Follow up the stress test result. Continue Eliquis. We will follow with you. Thank you Dr. Malave for providing us the opportunity in taking care of the patient, Julieth Szymanski. We will follow with you. Chest pain is atypical. So far, no evidence of acute myocardial infarction. Waiting for the official result, for the stress test to be read. Gisselle Parker MD [facility] # [id number]
--- NOTE | 2017-08-21 17:00 | PN ---
DATE: 08/21/2017 NEUROLOGY FOLLOWUP CHIEF COMPLAINT: Followup for headaches. SUBJECTIVE: Patient seen and examined at bedside. Headache is much better since she got Fioricet. No focal weakness of the extremities. She is currently on Eliquis for history of hypercoagulability and paroxysmal AFib in the past. She is on Lyrica and Cymbalta for chronic pain. She has underlying pneumonia, for which she is on antibiotics. PAST MEDICAL HISTORY: History of hypothyroidism in the past, history of paroxysmal AFib, has sleep apnea syndrome, depression, schizophrenia, hypertension, history of hypercoagulable state. ALLERGIES: ALLERGIC TO IODINE AND MEPERIDINE. SOCIAL HISTORY: No illicit drug use, smoking, or EtOH abuse. FAMILY HISTORY: Noncontributory. MEDICATIONS: Reviewed by nursing reconciliation sheet. REVIEW OF SYSTEMS: A 14-point review of systems negative except as per the HPI. PHYSICAL EXAMINATION: VITAL SIGNS: Temperature 97.7, pulse rate 66, blood pressure 122/84, respiratory rate 20. GENERAL: Patient is sitting up in bed, in no acute distress. HEENT: Head is atraumatic, normocephalic. PERRLA. Extraocular muscles intact. NECK: Supple. No JVD, no adenopathy noted. LUNGS: Clear to auscultation. No adventitious sounds. HEART: S1, S2, normal rate and rhythm. No murmurs, rubs, or gallops. ABDOMEN: Soft, nontender, nondistended. Bowel sounds present. EXTREMITIES: No clubbing, no cyanosis. Peripheral pulses 2+ felt bilaterally. NEUROLOGIC: Patient is alert, oriented to person, place, month, and year. Flat affect. Speech is fluent without any errors. Cranial nerves II through XII intact. Motor: Moves all extremities equally. No pronator drift seen. Sensory: Decreased light touch and pinprick up to calves bilaterally. Decreased vibration of the toes. DTRs are 2+ throughout and 1 at both knees and absent at the ankles. Coordination: Nzfsnb-ex-[id number] intact. No evidence of any tremors. LABORATORY DATA: Sodium 143, potassium 3.9, chloride 104, carbon dioxide 29. BUN of 15, creatinine 0.9. Random glucose 85. IMPRESSION: This is a 52-year-old woman with history of paroxysmal atrial fibrillation, on Eliquis; hypothyroidism; depression; sleep apnea; schizophrenia; who presented with shortness of breath, found to have a pneumonia, undergoing antibiotic treatment, was consulted for initial headache, the headache is most likely a tension-based headache. CAT scan of the head showed no acute intracranial abnormalities. RECOMMENDATIONS: At this time, recommend: 1. Continue with Fioricet one tablet p.o. q. 4 hours p.r.n. for acute onset headache. 2. Continue Cymbalta 60 mg p.o. daily and Lyrica 50 mg p.o. b.i.d., which also will help her with her generalized headaches as well. 3. Monitor her electrolytes and correct accordingly. 4. Continue with ongoing treatment for underlying pneumonia. Thank you for this followup. Tobias Hooks MD
[2017-08-21] MEDS: Apap-Butalbital-Caffeine 325-50-40mg Tab PO PRN (21:12)
--- NOTE | 2017-08-21 21:39 | CARD ---
APPROVED REPORT Protocol: LEXISCAN Test Type: Lexiscan Sestamibi Stress Test Attending Physician: Dr. Gisselle Martínez Referring Physician: Dr. TYRONE QIU Test Indications: Chest Pain Height:5 ft 6 in Weight:233lbs Medications: TYLENOL, ELIQUIS, ABILIFY, KLONOPIN, CYMBALTA, SYNTHROID, PROTONIX, LYRICA, CARAFATE, AMBIEN Medical History: 52 YEAR OLD FEMALE WITH A H/O A-FIB, TIA, IRON DEFFICIENCY ANEMIA, GASTRIC BYPASS SURGERY, ANXIETY, DEPRESSION AND SCHIZOPHRENIA Target HR: 170 bpm Resting ECG: RSR. Resting Heart Rate: 75 bpm Resting Blood Pressure: 122/76mmHg Submaximum (85%): 145 bpm PROCEDURE Pharmacologic stress testing was performed using 0.4mg per 5ml of regadenoson given intravenously over 7-10 seconds. POST EXERCISE Reason for Termination: Protocol completed Target HR: No Max HR: 61 bpm 45% of Maximum Predicted HR: 170 bpm Exercise duration: 00:32 min:sec, 0 Stage Exercise capacity: 1.0METs Max Blood Pressure: 122/76mmHg Blood Pressure response to exercise: normal resting BP - appropriate response Heart Rate response to exercise: appropriate Chest Pain: No, none Angina index: 0 Arrhythmia: No, none ST Change: No, none Deviation: 0 mm INTERPRETATION Stress EKG Conclusion: IV LEXISCAN NUCLEAR STRESS TEST NEGATIVE FOR CHEST PAIN AND NEGATIV FOR ST-T CHANGES. NUCLEAR SCAN REPORT PENDING. Signed by Gisselle Martínez Electronically Approved: 08/18/2017 11:41:00 EXAM: Myocardial Perfusion REST/STRESS Stress Test Type: Pharmacologic Imaging Protocol Rest Spect myocardial perfusion imaging was performed in supine position 45 minutes following the injection of 10.3 mCi of Tc-99 Myoview. At peak stress, the patient was injected intravenously with 30.7mCi of Tc-99 tetrofosmin after an infusion time of 0 minutes and 10 seconds. Gated Stress Spect was performed 65 minutes after intravenous Tc-99 Myoview injection. The images were gated to evaluate regional wall motion and calculate ventricular ejection fraction.Images were reconstructed using backfilter projection method in short horizontal and verticle long axis. Spect slices were generated. LV Perfusion The quality of the study is good. The left ventricle is normal in size. The right ventricle is unremarkable. The lung uptake is normal. The distribution of tracer reveals a small area of mildly decreased perfusion in the basal inferolateral wall on the stress study. The remainder of the LV myocardium is unremarkable. The rest myocardial perfusion study shows no significant change. Wall Motion Wall motion study shows good contractility of the left ventricle. LVEF = 70%. Conclusion 1. Essentially normal SPECT myocardial perfusion study. 2. Fixed, mild, basal inferolateral defect is most likely due to low lying breast attenuation. 3. Normal gated wall motion of the left ventricle.
--- NOTE | 2017-08-21 23:02 | CP.PCM.PN ---
Subjective - Date & Time of Evaluation Date of Evaluation: 08/21/17 Time of Evaluation: 22:54 - Subjective Subjective: Patient seen at bedside. BP 129/57 HR 96/min Temp 988F, RR 18/min, FSBS 60 mg % repeat one was 55 mg %. She complains of numbness in left face , left upper and lower extremity, weakness in left side for 15 minutes, dizziness for 15 minutes , head ache, generalized for a few days. Has no other complaints. Medical record was reviewed. This 52 year old white woman was admitted with chest discomfort. Has PMH of Paroxysmal atrial fibrillation, hypercoagulable state, hypothyroidism , HTN, anxiety, depression, schizophrenia,iron deficiency anemia, TIA x 3, gastric bypass surgery. Objective - Vital Signs/Intake and Output Vital Signs (last 24 hours): Temp Pulse Resp BP Pulse Ox 98 F 92 H 18 127/88 93 L 08/21/17 17:36 08/21/17 18:00 08/21/17 17:36 08/21/17 17:36 08/21/17 05:28 Intake and Output: 08/21/17 08/22/17 18:59 06:59 Intake Total 1140 Output Total 1400 Balance -260 - Medications Medications: Current Medications Acetaminophen (Tylenol 325mg Tab) 650 mg PO Q4 PRN PRN Reason: Pain, moderate (4-7) Last Admin: 08/20/17 21:32 Dose: 650 mg Acetaminophen/Butalbital/Caffeine (Fioricet) 1 tab PO Q6H PRN PRN Reason: Headache Last Admin: 08/21/17 21:12 Dose: 1 tab Apixaban (Eliquis) 5 mg PO BID KEITH PRN Reason: Protocol Last Admin: 08/21/17 17:14 Dose: 5 mg Aripiprazole (Abilify) 30 mg PO HS KEITH PRN Reason: Protocol Last Admin: 08/21/17 21:11 Dose: 30 mg Clonazepam (Klonopin) 0.5 mg PO TID PRN; Protocol PRN Reason: Agitation Last Admin: 08/21/17 21:33 Dose: 0.5 mg Doxycycline Hyclate (Doryx) 100 mg PO Q12 KEITH PRN Reason: Protocol Last Admin: 08/21/17 21:12 Dose: 100 mg Duloxetine HCl (Cymbalta) 60 mg PO DAILY [facility] Last Admin: 08/21/17 09:49 Dose: 60 mg Cefepime HCl (Maxipime 1gm) 1 gm in 100 mls @ 100 mls/hr IVPB Q12 KEITH PRN Reason: Protocol Last Admin: 08/21/17 21:11 Dose: 100 mls/hr Levalbuterol HCl (Xopenex) 0.63 mg IH TIDRESP [facility] Last Admin: 08/21/17 19:53 Dose: 0.63 mg Levothyroxine Sodium (Synthroid) 175 mcg PO 0600 [facility] Last Admin: 08/21/17 06:18 Dose: 175 mcg Metoprolol Tartrate (Lopressor) 25 mg PO BID [facility] Last Admin: 08/21/17 17:15 Dose: 25 mg Ondansetron HCl (Zofran Odt) 4 mg PO Q8H PRN PRN Reason: Nausea/Vomiting Pantoprazole Sodium (Protonix Ec Tab) 40 mg PO DAILY [facility] Last Admin: 08/21/17 09:49 Dose: 40 mg Pregabalin (Lyrica) 50 mg PO BID [facility] Last Admin: 08/21/17 17:14 Dose: 50 mg Sodium Chloride ([place] Nasal [place]) 0 ml NS Q4 PRN PRN Reason: Nasal congestion Last Admin: 08/19/17 18:26 Dose: 2 sprays Sucralfate (Carafate Oral Susp) 1 gm PO BID [facility] Last Admin: 08/21/17 17:14 Dose: 1 gm Zolpidem Tartrate (Ambien) 5 mg PO HS PRN; Protocol PRN Reason: Insomnia Last Admin: 08/20/17 21:08 Dose: 5 mg - Labs Labs: 08/21/17 06:30 08/21/17 06:30 PT 12.5 SECONDS (9.4-12.5) 08/18/17 06:30 INR 1.09 (0.93-1.08) H 08/18/17 06:30 Micro Results 08/17/17 23:10 Blood Blood Culture - Preliminary NO GROWTH AFTER 3 DAYS 08/17/17 22:50 Blood Blood Culture - Preliminary NO GROWTH AFTER 3 DAYS 08/19/17 15:20 Urine,Clean Catch Urine Culture - Final No Growth (<1,000 CFU/ML) Most Recent Lab Values WBC 6.1 10^3/ul (4.5-11.0) 08/21/17 06:30 RBC 3.90 10^6/uL (3.5-6.1) 08/21/17 06:30 Hgb 11.5 g/dL (12.0-16.0) L 08/21/17 06:30 Hct 36.2 % (36.0-48.0) 08/21/17 06:30 MCV 92.8 fl (80.0-105.0) 08/21/17 06:30 MCH 29.5 pg (25.0-35.0) 08/21/17:30 MCHC 31.8 g/dl (31.0-37.0) 08/21/17:30 RDW 14.8 % (11.5-14.5) H 08/21/17 06:30 Plt Count 268 10^3/uL (120.0-450.0) 08/21/17:30 MPV 9.8 fl (7.0-11.0) 08/21/17:30 Gran % 49.2 % (50.0-68.0) L 08/21/17:30 Lymph % (Auto) 38.6 % (22.0-35.0) H 08/21/17:30 [place] % (Auto) 8.7 % (1.0-6.0) H 08/21/17 06:30 Eos % (Auto) 3.0 % (1.5-5.0) 08/21/17 06:30 Baso % (Auto) 0.5 % (0.0-3.0) 08/21/17:30 Gran # 2.99 (1.4-6.5) 08/21/17:30 Lymph # (Auto) 2.3 (1.2-3.4) 08/21/17:30 [place] # (Auto) 0.5 (0.1-0.6) 08/21/17:30 Eos # (Auto) 0.2 (0.0-0.7) 08/21/17 06:30 Baso # (Auto) 0.03 K/mm3 (0.0-2.0) 08/21/17:30 PT 12.5 SECONDS (9.4-12.5) 08/18/17 06:30 INR 1.09 (0.93-1.08) H 08/18/17 06:30 D-Dimer, Quantitative < 200 ng/mL (0-243) 08/17/17 19:16 Sodium 143 mmol/L (132-148) 08/21/17 06:30 Potassium 3.9 mmol/L (3.6-5.0) 08/21/17 06:30 Chloride 104 mmol/L (98-107) 08/21/17 06:30 Carbon Dioxide 29 mmol/L (21-33) 08/21/17 06:30 Anion Gap 14 (10-20) 08/21/17 06:30 BUN 15 mg/dL (7-21) 08/21/17 06:30 Creatinine 0.9 mg/dl (0.7-1.2) 08/21/17 06:30 Est GFR ( Amer) > 60 08/21/17 06:30 Est GFR (Non-Af Amer) > 60 08/21/17 06:30 POC Glucose (mg/dL) 65 mg/dL (65-110) 08/21/17 21:38 Random Glucose 85 mg/dL (70-110) 08/21/17 06:30 Hemoglobin A1c 5.2 % (4.2-6.5) 08/18/17 06:30 Calcium 9.4 mg/dL (8.4-10.5) 08/21/17 06:30 Total Bilirubin 0.3 mg/dL (0.2-1.3) 08/21/17 06:30 AST 23 U/L (14-36) 08/21/17 06:30 ALT 18 U/L (7-56) 08/21/17 06:30 Alkaline Phosphatase 111 U/L (38-126) 08/21/17 06:30 Lactate Dehydrogenase 452 U/L (333-699) 08/17/17 19:16 Total Creatine Kinase 68 U/L (35-230) 08/17/17 19:16 Troponin I < 0.01 ng/mL D 08/17/17 19:16 NT-Pro-B Natriuret Pep 258 pg/mL (0-450) 08/17/17 19:16 Total Protein 6.7 g/dL (5.8-8.3) 08/21/17 06:30 Albumin 3.4 g/dL (3.0-4.8) 08/21/17 06:30 Globulin 3.2 gm/dL 08/21/17 06:30 Albumin/Globulin Ratio 1.1 (1.1-1.8) 08/21/17 06:30 Triglycerides 151 mg/dL (35-160) 08/18/17 06:30 Cholesterol 205 mg/dL (130-200) H 08/18/17 06:30 LDL Cholesterol Direct 97 mg/dL (0-129) 08/18/17 06:30 HDL Cholesterol 69 mg/dL (29-60) H 08/18/17 06:30 Procalcitonin < 0.05 NG/ML (0.19-0.49) L 08/19/17 08:00 Urine Color Yellow (YELLOW) 08/19/17 13:31 Urine Appearance Clear (CLEAR) 08/19/17 13:31 Urine pH 6.0 (4.7-8.0) 08/19/17 13:31 Ur Specific [place] 1.010 (1.005-1.035) 08/19/17 13:31 Urine Protein Negative mg/dL (<30 mg/dL) 08/19/17 13:31 Urine Glucose (UA) Negative mg/dL (NEGATIVE) 08/19/17 13:31 Urine Ketones Negative mg/dL (NEGATIVE) 08/19/17 13:31 Urine Blood Small (NEGATIVE) H 08/19/17 13:31 Urine Nitrate Negative (NEGATIVE) 08/19/17 13:31 Urine Bilirubin Negative (NEGATIVE) 08/19/17 13:31 Urine Urobilinogen 0.2 E.U./dL (<1 E.U./dL) 08/19/17 13:31 Ur Leukocyte Esterase Small [place]/uL (NEGATIVE) H 08/19/17 13:31 Urine RBC 0 - 2 /hpf (0-2) 08/19/17 13:31 Urine WBC 5 - 10 /hpf (0-6) 08/19/17 13:31 Ur Epithelial Cells 1 - 3 /hpf (0-5) 08/19/17 13:31 Urine Bacteria Few (NEG) 08/19/17 13:31 Influenza Typ A,B (EIA) Negative for flu a/b (NEGATIVE) 08/17/17 23:10 Ur L.pneumophila Ag Negative (NEGATIVE) 08/19/17 06:15 - Constitutional Appears: Well, No Acute Distress - Head Exam Head Exam: ATRAUMATIC, NORMAL INSPECTION, NORMOCEPHALIC - Eye Exam Eye Exam: Normal appearance - ENT Exam ENT Exam: Normal External Ear Exam - Neck Exam Neck Exam: Normal Inspection - Respiratory Exam Respiratory Exam: NORMAL BREATHING PATTERN - Cardiovascular Exam Cardiovascular Exam: absent: JVD - GI/Abdominal Exam GI & Abdominal Exam: absent: Distended - Rectal Exam Rectal Exam: Deferred - Exam Additional comments: Deferred. - Extremities Exam Extremities Exam: Normal Inspection - Back Exam Back Exam: NORMAL INSPECTION - Neurological Exam Neurological Exam: Alert, Oriented x3 Neuro motor strength exam: Left Upper Extremity: 4, Right Upper Extremity: 5, Left Lower Extremity: 4, Right Lower Extremity: 5 Additional comments: Sensation diminished in left upper and lower extremities as well as left side of face. - Psychiatric Exam Psychiatric exam: Normal Affect, Normal Mood - Skin Skin Exam: Normal Color Assessment and Plan - Assessment and Plan (Free Text) Assessment: Left sided numbness, weakness. TIA. R/O CVA. PAF. Anxiety . Depression. Hypothyroidism. Plan: Discussed with and . Stroke Code was announced. CT head without contrast . D50% IV one ampoule stat. CTA of head deferred because of allergy to contrast. IV hydration. Continue Eliquis. Continue present management. NIHSS. Neurocheck. BP management per protocol if BP is high. TPA not givne- patient is on Eliquis.
[2017-08-21] MEDS ORDERED: Dextrose 50% SYRINGE Inj (50 ml) ONE (23:14)
--- NOTE | 2017-08-21 23:15 | CP.PCM.PN ---
Subjective - Date & Time of Evaluation Date of Evaluation: 08/21/17 Time of Evaluation: 23:15 Objective - Vital Signs/Intake and Output Vital Signs (last 24 hours): Temp Pulse Resp BP Pulse Ox 98 F 92 H 18 127/88 93 L 08/21/17 17:36 08/21/17 18:00 08/21/17 17:36 08/21/17 17:36 08/21/17 05:28 Intake and Output: 08/21/17 08/22/17 18:59 06:59 Intake Total 1140 Output Total 1400 Balance -260 - Medications Medications: Current Medications Acetaminophen (Tylenol 325mg Tab) 650 mg PO Q4 PRN PRN Reason: Pain, moderate (4-7) Last Admin: 08/20/17 21:32 Dose: 650 mg Acetaminophen/Butalbital/Caffeine (Fioricet) 1 tab PO Q6H PRN PRN Reason: Headache Last Admin: 08/21/17 21:12 Dose: 1 tab Apixaban (Eliquis) 5 mg PO BID [facility] PRN Reason: Protocol Last Admin: 08/21/17 17:14 Dose: 5 mg Aripiprazole (Abilify) 30 mg PO HS [facility] PRN Reason: Protocol Last Admin: 08/21/17 21:11 Dose: 30 mg Clonazepam (Klonopin) 0.5 mg PO TID PRN; Protocol PRN Reason: Agitation Last Admin: 08/21/17 21:33 Dose: 0.5 mg Doxycycline Hyclate (Doryx) 100 mg PO Q12 [facility] PRN Reason: Protocol Last Admin: 08/21/17 21:12 Dose: 100 mg Duloxetine HCl (Cymbalta) 60 mg PO DAILY [facility] Last Admin: 08/21/17 09:49 Dose: 60 mg Cefepime HCl (Maxipime 1gm) 1 gm in 100 mls @ 100 mls/hr IVPB Q12 [facility] PRN Reason: Protocol Last Admin: 08/21/17 21:11 Dose: 100 mls/hr Levalbuterol HCl (Xopenex) 0.63 mg IH TIDRESP [facility] Last Admin: 08/21/17 19:53 Dose: 0.63 mg Levothyroxine Sodium (Synthroid) 175 mcg PO 0600 [facility] Last Admin: 08/21/17 06:18 Dose: 175 mcg Metoprolol Tartrate (Lopressor) 25 mg PO BID [facility] Last Admin: 08/21/17 17:15 Dose: 25 mg Ondansetron HCl (Zofran Odt) 4 mg PO Q8H PRN PRN Reason: Nausea/Vomiting Pantoprazole Sodium (Protonix Ec Tab) 40 mg PO DAILY [facility] Last Admin: 08/21/17 09:49 Dose: 40 mg Pregabalin (Lyrica) 50 mg PO BID [facility] Last Admin: 08/21/17 17:14 Dose: 50 mg Sodium Chloride ([place] Nasal [place]) 0 ml NS Q4 PRN PRN Reason: Nasal congestion Last Admin: 08/19/17 18:26 Dose: 2 sprays Sucralfate (Carafate Oral Susp) 1 gm PO BID [facility] Last Admin: 08/21/17 17:14 Dose: 1 gm Zolpidem Tartrate (Ambien) 5 mg PO HS PRN; Protocol PRN Reason: Insomnia Last Admin: 08/20/17 21:08 Dose: 5 mg - Labs Labs: 08/21/17 06:30 08/21/17 06:30 PT 12.5 SECONDS (9.4-12.5) 08/18/17 06:30 INR 1.09 (0.93-1.08) H 08/18/17 06:30
[2017-08-21] MEDS ORDERED: Dextrose 50% SYRINGE Inj (50 ml) IVP ONE (23:16)
[2017-08-21] MEDS ORDERED: Dextrose 5%/0.9% NS 1,000 ML IV SCH (23:30)
[2017-08-21] MEDS ORDERED: Labetalol 5 mg/ml Inj 20ML IVP ONE (23:39)
--- NOTE | 2017-08-21 23:43 | CT ---
EXAM: CT Head Without Intravenous Contrast CLINICAL HISTORY: 52 years old, female; Signs and symptoms; Other: Left side weakness; Additional info: Code stroke TECHNIQUE: Axial computed tomography images of the head/brain without intravenous contrast. All CT scans at this facility use one or more dose reduction techniques, viz.: automated exposure control; ma/kV adjustment per patient size (including targeted exams where dose is matched to indication; i.e. head); or iterative reconstruction technique. Coronal and sagittal reformatted images were created and reviewed. COMPARISON: CT - HEAD W/O CONTRAST 2017-08-20 13:53 FINDINGS: Brain: Mild atrophy. No intracranial hemorrhage. No mass. No definite edema. Ventricles: No hydrocephalus. Bones/joints: No acute fracture. Soft tissues: Unremarkable. Sinuses: No acute sinusitis. Mastoid air cells: No mastoid effusion. Orbits: Unremarkable as visualized. IMPRESSION: 1. No definite territorial infarction. Acute infarction may be CT occult within first 24 hours. If focal deficit persists, consider followup CT or MRI for further evaluation. 2. Incidental/non-acute findings are described above.
--- NOTE | 2017-08-21 23:47 | PN ---
DATE: 08/21/2017 REFERRING PHYSICIAN: Wesly March MD SUBJECTIVE: She is sitting at the side of her bed. is at bedside. Night was unremarkable. Feels little better. Still has mild cough. No nausea. No vomiting. No diarrhea. No leg pain. No swelling. OBJECTIVE: GENERAL: In no acute distress. VITAL SIGNS: Temperature is 98, heart rate is 92, respiratory rate is 18, blood pressure is 127/88, pulse ox 93% on room air. HEENT: Moist mucous membrane. Crowded airway. Mallampati score is IV. NECK: Supple. No JVD. LUNGS: Have a few scattered rhonchi. HEART: S1, S2. ABDOMEN: Soft, nontender. No organomegaly. EXTREMITIES: No edema. NEUROLOGIC: Awake, alert, follows simple commands. LABORATORY DATA: Shows hemoglobin of 11.5, hematocrit 36.2, WBC 6.1, platelet count is 268. Sodium 143, potassium 3.9, chloride 104, bicarbonate 29, BUN 15, creatinine 0.9, glucose 85, calcium is 9.4, AST 23, ALT 18, alkaline phosphatase is 111, albumin is 3.4. Microbiology; blood culture and urine culture, there is no growth. MEDICATIONS: She is on Abilify 30 mg at bedtime, Ambien 5 mg at bedtime p.r.n., Carafate 1 g twice a day, Cymbalta 60 mg daily, doxycycline 100 mg twice a day, Eliquis 5 mg twice a day, Fioricet 1 tablet q. 6 hour p.r.n., Klonopin 0.5 mg three times a day p.r.n, Lopressor 25 mg twice a day, Lyrica 50 mg twice a day, cefepime 1 g IV q. 12 hour, nasal saline q. 4 hour p.r.n., Protonix 40 mg daily, Synthroid 175 mcg daily, Tylenol p.r.n., Xopenex inhaled three times a day, Zofran on p.r.n. basis. IMPRESSION AND PLAN: Pneumonia with cough and shortness of breath, atrial fibrillation, history of gastric bypass surgery in the remote past, sleep apnea syndrome, claustrophobic - could not use BiPAP/CPAP, schizophrenia, depression. Spoke to patient's at the bedside. All the questions answered. Continue antibiotics, continue bronchodilator, sleep apnea precaution, avoid sedation, gastric prophylaxis, on anticoagulation. Thank you and we will follow with you. Gisselle Sears MD
[2017-08-22 03:47] VITALS: RESP 20
--- NOTE | 2017-08-22 04:37 | PN ---
DATE: 08/11/2017 ONCOLOGY PROGRESS NOTE LOCATION: Room 260, bed 2. SUBJECTIVE: This is a 52-year-old female, who was admitted through the office with atypical chest pain, progressively worsening after being initially seen earlier in the day by Dr. Sanchez. Patient recently had an upper endoscopy and colonoscopy that showed multiple lesions in the stomach, biopsy of which was thought to be ulcers, but besides showing ulcerations did not show any specific pathology. History of gastric bypass about 10 years ago. Patient has history of hypercoagulation, history of paroxysmal atrial fibrillation, history of TIAs in the past, history of rhinitis. Patient after being admitted to the hospital via the emergency room for atypical chest pain, was also noted to have bilateral pneumonia on the CAT scan of the abdomen and admitted for further management. Patient had stress test, results of which are not yet available. PAST MEDICAL HISTORY: Significant for hypothyroidism, history of pituitary adenoma in the past, schizophrenia, depression, sleep apnea syndrome. Patient also has a loop recorder. ALLERGIES: DEMEROL AND IV CONTRAST DYE. MEDICATIONS: Patient's medications are reviewed. She is on Abilify 30 mg at bedtime, Ambien 5 mg at bedtime p.r.n., Carafate 1 g twice a day, Cymbalta 60 mg daily, doxycycline 100 mg twice daily, Eliquis 5 b.i.d., Fioricet 1 tablet q. 6 hours p.r.n. for headache, Klonopin 0.5 mg 3 times a day, Lyrica 50 mg twice a day, cefepime 1 g IV q. 12 hours, nasal saline q. 4 hours p.r.n., Protonix 40 mg daily, Synthroid 175 mcg daily, Tylenol p.r.n., Zofran p.r.n. REVIEW OF SYSTEMS: Patient has had some headache, rhinitis, and cough with clear phlegm. No significant chest pain. No nausea or vomiting. No leg pain or leg swelling. PHYSICAL EXAMINATION: GENERAL: Patient is awake, alert, and oriented, sitting on the side of the bed, in no acute distress. VITAL SIGNS: Stable. T-max is 98.4, heart rate is 85, respirations 20, blood pressure is 140/87, pulse ox is 96% on room air. HEENT: Head is normocephalic, atraumatic. Conjunctivae pale. Sclerae anicteric. Pupils are equally reactive to light and accommodation. Examination of the oropharynx reveals no oropharyngeal lesions. NECK: Supple. There is no adenopathy. No jugular venous distention noted. LUNGS: Clear with good air flow on either side with very few rhonchi bilaterally. HEART: Examination of the heart reveals PMI to be in the fifth intercostal space inside the midclavicular line. S1 and S2 are normal. No gallop or murmur heard. ABDOMEN: Soft, nontender, protuberant. No rebound, rigidity, or guarding is noted. Liver and spleen not enlarged. EXTREMITIES: No cyanosis, clubbing, or edema. NEUROLOGIC: Higher functions to be normal. No focal deficits are noted. LABORATORY DATA: Reveals hemoglobin 11.3, hematocrit 35, white count of 6.4, platelet count 249,000. Sodium 143, K is 3.8, chloride is 106, bicarbonate is 28, BUN is 15, creatinine 0.8, glucose of 79, calcium 9.2. AST of 25, ALT of 25, alkaline phosphatase is 111, albumin of 3.3. Urinalysis shows wbc's 5 to 10 per high-powered field. Influenza antibodies are negative. Blood cultures and urine cultures reveal no growth. CAT scan of the chest shows focal pneumonia in the medial aspect of the superior segment of the right lower lobe. Few stable lung nodules in both lobes. CAT scan of the head, which was unremarkable. Myocardial stress test was done, report of which is still pending. ASSESSMENT NOTES AND PLAN: Patient has pneumonia with cough and shortness of breath, atrial fibrillation, history of gastric bypass surgery, sleep apnea syndrome, schizophrenia, and depression. PLAN: We will continue with current management. We will get cardiology input as well as ID input. Continue GI prophylaxis and anticoagulation as well as fall precaution, and continue current medications. We will check with ID as well as to how long antibiotics have to be continued. Routine post-exam instructions have been given to the patient. Beta-blockers have been discussed with the patient by Cardiology in order to help her with her atrial fibrillation. Time spent with the patient is greater than 45 minutes. Betzy Malave MD
[2017-08-22] MEDS: Levothyroxine 175 MCG TAB PO SCH (05:25)
[2017-08-22] MEDS: Levalbuterol 0.63 MG/3 ML Inhal Soln UD IH SCH ×3 (07:56→19:37)
--- NOTE | 2017-08-22 09:24 | PN ---
DATE: 08/22/2017 REASON FOR THE CONSULTATION AND FOLLOWUP: Atypical chest pain, status post rapid response last night. Rule out CVA, TIA. Negative stress test. SUBJECTIVE: Stress test turned out to be negative, but the patient says last night she had a rapid response and suspicious for TIA, CVA. The patient denies any chest pain. Denies any shortness of breath. Denies any palpitation. OBJECTIVE: GENERAL: Not in any apparent distress. VITAL SIGNS: Temperature afebrile, heart rate 64, blood pressure 127/95. HEENT: PERRLA. Extraocular muscles intact. NECK: Supple. No carotid bruit. No thyromegaly. CHEST: Clear to auscultation. HEART: S1 and S2 regular. ABDOMEN: Soft. EXTREMITIES: Clubbing and cyanosis negative. LABORATORY DATA: Blood workup as follows; WBC 6.5, hemoglobin 11.5, hematocrit 36.2, platelet count 268. Chemistry shows sodium 143, potassium 3.9, chloride 104, carbon dioxide 29, anion gap of 14, BUN [address], [address] scan of the head shows negative for acute infarct, but it is in the window period of 24 hours. Cannot rule out occult infarct, but no intracerebral bleed. The patient had a stress test that shows essentially normal myocardial perfusion scan. No reversible ischemia. Ejection fraction reported 71%. Normal wall motion abnormality. Essentially normal myocardial perfusion study. Fixed mid basal and inferolateral defect, most likely secondary to low lying breast attenuation. No ischemia. IMPRESSION: Morbid obesity, body mass index 39 kg/m2; atypical chest pain. No evidence of acute myocardial infarction. Stress test negative for ischemia. History of schizophrenia; gastric bypass history; history of hypothyroidism; questionable history of insulinoma; benign neoplasm of the pituitary gland; iron-deficiency anemia requiring multiple blood transfusion; hypercoagulable state, on Eliquis. Last echocardiogram shows ejection fraction preserved 55-60%, trace aortic regurgitation, trace to mild mitral regurgitation, mild tricuspid regurgitation. Negative stress test. Wanted to discontinue telemetry, but I heard the patient had rapid response last night and thus rule out cerebrovascular accident protocol, so we will wait once the protocol is cleared and cerebrovascular accident is ruled out, telemetry can be discontinued. We will discontinue intravenous fluid. Continue low-dose beta luisa as blood pressure is tolerated. Continue Eliquis 5 mg b.i.d. Cerebrovascular accident status is stable. We will follow with you. Last night, blood sugar was low, started D5 and now the blood sugar is 85. The patient is eating. No further cardiac workup is planned at this time or warranted. Thank you, Dr. Malave, for providing us the opportunity in taking care of Julieth Szymanski. Gisselle Parker MD cc: Betzy Malave MD
[2017-08-22] MEDS: Sucralfate 1 gm/10 ml Oral Susp UD PO SCH ×2 (09:45→18:16)
[2017-08-22] MEDS: Pantoprazole 40 mg EC Tab PO SCH (09:46)
[2017-08-22] MEDS: Cefepime 1gm in NS 100ml 1 GM/100 ML BAG IVPB SCH ×2 (11:09→21:56)
--- NOTE | 2017-08-22 11:09 | CP.PCM.PN ---
Subjective - Date & Time of Evaluation Date of Evaluation: 08/22/17 Time of Evaluation: 08:40 - Subjective Subjective: Comfortable, no fevers, not in distress. Objective - Vital Signs/Intake and Output Vital Signs (last 24 hours): Temp Pulse Resp BP Pulse Ox 98.3 F 64 20 96/57 L 94 L 08/22/17 06:00 08/22/17 06:00 08/22/17 06:00 08/22/17 06:00 08/22/17 06:00 Intake and Output: 08/22/17 08/22/17 06:59 18:59 Intake Total 880 Output Total 1999 Balance -1120 - Medications Medications: Current Medications Acetaminophen (Tylenol 325mg Tab) 650 mg PO Q4 PRN PRN Reason: Pain, moderate (4-7) Last Admin: 08/20/17 21:32 Dose: 650 mg Acetaminophen/Butalbital/Caffeine (Fioricet) 1 tab PO Q6H PRN PRN Reason: Headache Last Admin: 08/21/17 21:12 Dose: 1 tab Apixaban (Eliquis) 5 mg PO BID KEITH PRN Reason: Protocol Last Admin: 08/21/17 17:14 Dose: 5 mg Aripiprazole (Abilify) 30 mg PO HS KEITH PRN Reason: Protocol Last Admin: 08/21/17 21:11 Dose: 30 mg Clonazepam (Klonopin) 0.5 mg PO TID PRN; Protocol PRN Reason: Agitation Last Admin: 08/21/17 21:33 Dose: 0.5 mg Doxycycline Hyclate (Doryx) 100 mg PO Q12 KEITH PRN Reason: Protocol Last Admin: 08/21/17 21:12 Dose: 100 mg Duloxetine HCl (Cymbalta) 60 mg PO DAILY KEITH Last Admin: 08/21/17 09:49 Dose: 60 mg Cefepime HCl (Maxipime 1gm) 1 gm in 100 mls @ 100 mls/hr IVPB Q12 KEITH PRN Reason: Protocol Last Admin: 08/21/17 21:11 Dose: 100 mls/hr Sodium Nitroprusside 50 mg/ (Dextrose) 252 mls @ 16.7 mls/hr IV .Q15H6M PRN; Protocol; 0.5 MCG/KG/MIN PRN Reason: TITRATE PER MD ORDER Levalbuterol HCl (Xopenex) 0.63 mg IH TIDRESP [facility] Last Admin: 08/22/17 07:56 Dose: 0.63 mg Levothyroxine Sodium (Synthroid) 175 mcg PO 0600 [facility] Last Admin: 08/22/17 05:25 Dose: 175 mcg Metoprolol Tartrate (Lopressor) 25 mg PO BID [facility] Last Admin: 08/21/17 17:15 Dose: 25 mg Ondansetron HCl (Zofran Odt) 4 mg PO Q8H PRN PRN Reason: Nausea/Vomiting Pantoprazole Sodium (Protonix Ec Tab) 40 mg PO DAILY [facility] Last Admin: 08/21/17 09:49 Dose: 40 mg Pregabalin (Lyrica) 50 mg PO BID [facility] Last Admin: 08/21/17 17:14 Dose: 50 mg Sodium Chloride ([place] Nasal [place]) 0 ml NS Q4 PRN PRN Reason: Nasal congestion Last Admin: 08/19/17 18:26 Dose: 2 sprays Sucralfate (Carafate Oral Susp) 1 gm PO BID [facility] Last Admin: 08/21/17 17:14 Dose: 1 gm Zolpidem Tartrate (Ambien) 5 mg PO HS PRN; Protocol PRN Reason: Insomnia Last Admin: 08/20/17 21:08 Dose: 5 mg - Labs Labs: 08/21/17 06:30 08/21/17 06:30 PT 12.5 SECONDS (9.4-12.5) 08/18/17 06:30 INR 1.09 (0.93-1.08) H 08/18/17 06:30 - Constitutional Appears: Non-toxic, Chronically Ill - Head Exam Head Exam: NORMAL INSPECTION - ENT Exam ENT Exam: Mucous Membranes Moist - Neck Exam Neck Exam: absent: Meningismus - Respiratory Exam Respiratory Exam: Decreased Breath Sounds - Cardiovascular Exam Cardiovascular Exam: +S1, +S2 - GI/Abdominal Exam GI & Abdominal Exam: Soft. absent: Tenderness Assessment and Plan - Assessment and Plan (Free Text) Plan: Assessment R/O HCAP R/O UTI R/O acute gastroenteritis history of sepsis due to left sided HCAP, slowly improving history of sepsis due to MRSA bacteremia, probably from port-a-cath S/P removal history of HCAP rheumatoid arthritis history of transient ischemic attack obstructive sleep apnea Morbid obesity with BMI 40 hypothyroidism bipolar disorder shcizoaffective disorder, S/P gastric bypass surgery Plan continue Doxycycline and cefepime day 5; urine cx are negative; blood cx are negative; PCT is <0.05; reviewed CT A/P - complete 5-7 days of therapy will continue to monitor clinically
--- NOTE | 2017-08-22 11:19 | MRI ---
PROCEDURE: MRI BRAIN WITHOUT CONTRAST HISTORY: new weakness COMPARISON: None. TECHNIQUE: Multiplanar, multisequence MR images of the brain were obtained without intravenous contrast enhancement. FINDINGS: HEMORRHAGE: None DWI: No evidence of an acute or early subacute infarction. BRAIN PARENCHYMA: No mass effect or edema. No atrophy or chronic microvascular ischemic changes. VENTRICLES: Unremarkable. No hydrocephalus. CRANIUM: Unremarkable. ORBITS: Grossly unremarkable. PARANASAL SINUSES/MASTOIDS: Clear VASCULAR SYSTEM: Skull base flow voids intact. OTHER FINDINGS: None. IMPRESSION: No acute intracranial findings
--- NOTE | 2017-08-22 11:23 | MRI ---
PROCEDURE: Magnetic Resonance Angiography Brain HISTORY: new weakness COMPARISON: None available. TECHNIQUE: 3D time of flight MR angiography of the intracranial arteries was performed. Rotating maximum intensity projection images were generated. FINDINGS: INTERNAL CAROTID ARTERIES: Unremarkable. The skull base, petrous, cavernous and supraclinoid segments are bilaterally widely patient. ANTERIOR CEREBRAL ARTERIES: Unremarkable. A1 and A2 segments are widely patent. Smaller distal branches unremarkable, as visualized. MIDDLE CEREBRAL ARTERIES: Unremarkable. M1 and M2 segments are widely patent. Perisylvian branches grossly symmetric. POSTERIOR CIRCULATION: Basilar Artery: Unremarkable. Distal Vertebral Arteries: Unremarkable. Posterior Cerebral Arteries: Unremarkable. Posterior Inferior Cerebellar Arteries: Unremarkable. ANEURYSM/ VASCULAR MALFORMATIONS: None. OTHER FINDINGS: None. IMPRESSION: Unremarkable MR angiography of the brain.
--- NOTE | 2017-08-22 11:25 | MRI ---
PROCEDURE: MR Angiography of the neck without contrast HISTORY: new weakness COMPARISON: None available. TECHNIQUE: 3D [id number] angiography of the neck was performed. Rotating maximum intensity projection images of the cervical carotid and vertebral arteries were generated. The origins of the common carotid arteries were not visualized, which is a limitation inherent to the non-contrast time of flight technique. FINDINGS: RIGHT CAROTID ARTERIES: Common Carotid Artery: Normal. Carotid Bifurcation: Normal. Internal Carotid Artery:Normal. External Carotid Artery (proximal branches): Normal. LEFT CAROTID ARTERIES: Common Carotid Artery: Normal. Carotid Bifurcation: Normal. Internal Carotid Artery:Normal. External Carotid Artery (proximal branches): Normal. VERTEBRAL ARTERIES: Right Vertebral Artery: Normal. Left Vertebral Artery: Normal. OTHER FINDINGS: None. IMPRESSION: Normal MR Angiography of the neck.
[2017-08-22 11:36] LABS: HDL CHOLESTEROL 71 mg/dL (29-60)
[2017-08-22 11:46] LABS: LDL CHOLESTEROL 116 mg/dL (0-129)
[2017-08-22] MEDS: Apap-Butalbital-Caffeine 325-50-40mg Tab PO PRN (12:12)
--- NOTE | 2017-08-22 16:02 | CP.PCM.PN ---
Subjective - Date & Time of Evaluation Date of Evaluation: 08/22/17 Time of Evaluation: 11:10 - Subjective Subjective: Jak Mirza D.O. PGY-2, Progress Note 52 year old female with a PMH of atrial fibrillation, SHERRY, gastric bypass surgery, and hypercoagulable state on eliquis who presented to [facility] with chest discomfort. Patient was seen and examined at bedside. Had ARTIFICIAL INSEMINATOR/Code Stroke yesterday with facial asymmetry and found to have hypoglycemia. No acute complaints this AM. Objective - Vital Signs/Intake and Output Vital Signs (last 24 hours): Temp Pulse Resp BP Pulse Ox 97.4 F L 100 H 20 131/86 94 L 08/22/17 12:00 08/22/17 12:00 08/22/17 12:00 08/22/17 12:00 08/22/17 06:00 Intake and Output: 08/22/17 08/22/17 06:59 18:59 Intake Total 880 260 Output Total 2000 Balance -1120 260 - Medications Medications: Current Medications Acetaminophen (Tylenol 325mg Tab) 650 mg PO Q4 PRN PRN Reason: Pain, moderate (4-7) Last Admin: 08/20/17 21:32 Dose: 650 mg Acetaminophen/Butalbital/Caffeine (Fioricet) 1 tab PO Q6H PRN PRN Reason: Headache Last Admin: 08/22/17 12:12 Dose: 1 tab Apixaban (Eliquis) 5 mg PO BID KEITH PRN Reason: Protocol Last Admin: 08/22/17 09:46 Dose: 5 mg Aripiprazole (Abilify) 30 mg PO HS KEITH PRN Reason: Protocol Last Admin: 08/21/17 21:11 Dose: 30 mg Atorvastatin Calcium (Lipitor) 10 mg PO DIN KEITH Clonazepam (Klonopin) 0.5 mg PO TID PRN; Protocol PRN Reason: Agitation Last Admin: 08/21/17 21:33 Dose: 0.5 mg Doxycycline Hyclate (Doryx) 100 mg PO Q12 KEITH PRN Reason: Protocol Last Admin: 08/22/17 09:46 Dose: 100 mg Duloxetine HCl (Cymbalta) 60 mg PO DAILY KEITH Last Admin: 08/22/17 09:46 Dose: 60 mg Cefepime HCl (Maxipime 1gm) 1 gm in 100 mls @ 100 mls/hr IVPB Q12 KEITH PRN Reason: Protocol Last Admin: 08/22/17 11:09 Dose: 100 mls/hr Sodium Nitroprusside 50 mg/ (Dextrose) 252 mls @ 16.7 mls/hr IV .Q15H6M PRN; Protocol; 0.5 MCG/KG/MIN PRN Reason: TITRATE PER MD ORDER Levalbuterol HCl (Xopenex) 0.63 mg IH TIDRESP [facility] Last Admin: 08/22/17 13:55 Dose: 0.63 mg Levothyroxine Sodium (Synthroid) 175 mcg PO 0600 [facility] Last Admin: 08/22/17 05:25 Dose: 175 mcg Metoprolol Tartrate (Lopressor) 12.5 mg PO BID [facility] Ondansetron HCl (Zofran Odt) 4 mg PO Q8H PRN PRN Reason: Nausea/Vomiting Last Admin: 08/22/17 12:12 Dose: 4 mg Pantoprazole Sodium (Protonix Ec Tab) 40 mg PO DAILY [facility] Last Admin: 08/22/17 09:46 Dose: 40 mg Pregabalin (Lyrica) 50 mg PO BID [facility] Last Admin: 08/22/17 09:46 Dose: 50 mg Sodium Chloride ([place] Nasal [place]) 0 ml NS Q4 PRN PRN Reason: Nasal congestion Last Admin: 08/19/17 18:26 Dose: 2 sprays Sucralfate (Carafate Oral Susp) 1 gm PO BID [facility] Last Admin: 08/22/17 09:45 Dose: 1 gm Zolpidem Tartrate (Ambien) 5 mg PO HS PRN; Protocol PRN Reason: Insomnia Last Admin: 08/20/17 21:08 Dose: 5 mg - Labs Labs: 08/21/17 06:30 08/21/17 06:30 PT 12.5 SECONDS (9.4-12.5) 08/18/17 06:30 INR 1.09 (0.93-1.08) H 08/18/17 06:30 - Constitutional Appears: Non-toxic, No Acute Distress - Head Exam Head Exam: ATRAUMATIC, NORMOCEPHALIC - Eye Exam Eye Exam: EOMI, PERRL - ENT Exam ENT Exam: Mucous Membranes Moist, Normal Oropharynx - Neck Exam Neck Exam: Normal Inspection - Respiratory Exam Respiratory Exam: Clear to Ausculation Bilateral. absent: Wheezes - Cardiovascular Exam Cardiovascular Exam: +S1, +S2 - GI/Abdominal Exam GI & Abdominal Exam: Soft, Normal Bowel Sounds. absent: Tenderness - Extremities Exam Extremities Exam: absent: Calf Tenderness - Neurological Exam Neurological Exam: Alert, Awake, Oriented x3, mild left sided weakness of BI/ TRI 4/5, LLE 5/5, mild left facial droop - Psychiatric Exam Psychiatric exam: Normal Affect, Normal Mood - Skin Skin Exam: Dry, Warm Assessment and Plan - Assessment and Plan (Free Text) Assessment: 52 year old female with a PMH of atrial fibrillation, SHERRY, gastric bypass surgery, and hypercoagulable state on eliquis who presented to [facility] with chest discomfort. Plan: Chest pain most likely 2/2 HCAP Left sided deficits SHERRY Hypercoagulable state on Eliquis Obesity Hypothyroidism Bipolar disorder Hx gastric bypass ID consulted, recs appreciated, on doxy/cefepime Cardio following, stress test negative ALL imaging of the brain negative, difficult to ascertain whether symptoms just TIA like she's had in the past or whether related to hypoglycemia most likely Neuro following, recs appreciated Continue home eliquis Continue psych medications Continue to monitor clinical status Discussed with attending physician
[2017-08-22 17:16] VITALS: PULSE 75
--- NOTE | 2017-08-22 17:40 | CP.PCM.PN ---
<Bee Pickens - Last Filed: 08/22/17 17:39> Subjective - Date & Time of Evaluation Date of Evaluation: 08/22/17 Time of Evaluation: 11:00 - Subjective Subjective: Seen and examined at the bedside earlier today, advance from last night are noted. Patient status post code stroke, patient complained of weakness to the left side, patient has history of TIA. CT head of the scan was done which showed mild brain atrophy all, no hemorrhage, mass or infarct. Patient feeling a little weak today and still have a some left-sided. But tolerating oral intake no complaints of dysphagia. Having soft stool, no diarrhea, last BM was yesterday,no complaints of nausea or vomiting. Objective - Vital Signs/Intake and Output Vital Signs (last 24 hours): Temp Pulse Resp BP Pulse Ox 98.8 F 75 20 133/81 94 L 08/22/17 17:15 08/22/17 17:15 08/22/17 17:15 08/22/17 17:15 08/22/17 17:15 Intake and Output: 08/22/17 08/22/17 06:59 18:59 Intake Total 880 260 Output Total 2000 Balance -1120 260 - Medications Medications: Current Medications Acetaminophen (Tylenol 325mg Tab) 650 mg PO Q4 PRN PRN Reason: Pain, moderate (4-7) Last Admin: 08/20/17 21:32 Dose: 650 mg Acetaminophen/Butalbital/Caffeine (Fioricet) 1 tab PO Q6H PRN PRN Reason: Headache Last Admin: 08/22/17 12:12 Dose: 1 tab Apixaban (Eliquis) 5 mg PO BID [facility] PRN Reason: Protocol Last Admin: 08/22/17 09:46 Dose: 5 mg Aripiprazole (Abilify) 30 mg PO HS KEITH PRN Reason: Protocol Last Admin: 08/21/17 21:11 Dose: 30 mg Atorvastatin Calcium (Lipitor) 10 mg PO DIN [facility] Clonazepam (Klonopin) 0.5 mg PO TID PRN; Protocol PRN Reason: Agitation Last Admin: 08/21/17 21:33 Dose: 0.5 mg Doxycycline Hyclate (Doryx) 100 mg PO Q12 KEITH PRN Reason: Protocol Last Admin: 08/22/17 09:46 Dose: 100 mg Duloxetine HCl (Cymbalta) 60 mg PO DAILY [facility] Last Admin: 08/22/17 09:46 Dose: 60 mg Cefepime HCl (Maxipime 1gm) 1 gm in 100 mls @ 100 mls/hr IVPB Q12 KEITH PRN Reason: Protocol Last Admin: 08/22/17 11:09 Dose: 100 mls/hr Sodium Nitroprusside 50 mg/ (Dextrose) 252 mls @ 16.7 mls/hr IV .Q15H6M PRN; Protocol; 0.5 MCG/KG/MIN PRN Reason: TITRATE PER MD ORDER Levalbuterol HCl (Xopenex) 0.63 mg IH TIDRESP [facility] Last Admin: 08/22/17 13:55 Dose: 0.63 mg Levothyroxine Sodium (Synthroid) 175 mcg PO 0600 [facility] Last Admin: 08/22/17 05:25 Dose: 175 mcg Metoprolol Tartrate (Lopressor) 12.5 mg PO BID [facility] Ondansetron HCl (Zofran Odt) 4 mg PO Q8H PRN PRN Reason: Nausea/Vomiting Last Admin: 08/22/17 12:12 Dose: 4 mg Pantoprazole Sodium (Protonix Ec Tab) 40 mg PO DAILY [facility] Last Admin: 08/22/17 09:46 Dose: 40 mg Pregabalin (Lyrica) 50 mg PO BID [facility] Last Admin: 08/22/17 09:46 Dose: 50 mg Sodium Chloride ([place] Nasal [place]) 0 ml NS Q4 PRN PRN Reason: Nasal congestion Last Admin: 08/19/17 18:26 Dose: 2 sprays Sucralfate (Carafate Oral Susp) 1 gm PO BID [facility] Last Admin: 08/22/17 09:45 Dose: 1 gm Zolpidem Tartrate (Ambien) 5 mg PO HS PRN; Protocol PRN Reason: Insomnia Last Admin: 08/20/17 21:08 Dose: 5 mg - Labs Labs: 08/21/17 06:30 08/21/17 06:30 PT 12.5 SECONDS (9.4-12.5) 08/18/17 06:30 INR 1.09 (0.93-1.08) H 08/18/17 06:30 - Constitutional Appears: No Acute Distress - Eye Exam Eye Exam: Scleral icterus. absent: Normal appearance - ENT Exam ENT Exam: Mucous Membranes Moist - Respiratory Exam Respiratory Exam: NORMAL BREATHING PATTERN. absent: Respiratory Distress - Cardiovascular Exam Cardiovascular Exam: +S1, +S2 - GI/Abdominal Exam GI & Abdominal Exam: Soft, Normal Bowel Sounds. absent: Guarding, Tenderness, Rebound - Extremities Exam Extremities Exam: absent: Calf Tenderness, Pedal Edema - Neurological Exam Neurological Exam: Alert, Awake, Oriented x3 Neuro motor strength exam: Left Upper Extremity: 4, Right Upper Extremity: 5, Left Lower Extremity: 4, Right Lower Extremity: 5 Additional comments: noted left upper and lower extremity weakness - Skin Skin Exam: Dry, Warm Assessment and Plan - Assessment and Plan (Free Text) Assessment: Assessment: S/P Code stroke, ct head, mild brain atrophy, MRA neck and brain no acute findings S/P Chest pain, status post stress test Recent egd/colon 07/2017: gastric erosion History of gastric bypass Chronic nausea/diarrhea Atrial fibrillation TIA Schizophrenia Iron deficiency anemia GERD Plan: soft diet, chew food well, aspiration precaution Continued GI prophylaxis DVT prophylaxis On Eliquis On oral antibiotics On Carafate neurology FU MR enterography outpatient workup, FU IBD serology Seen and discussed with Dr. Sanchez. <Radhika Sanchez V - Last Filed: 08/23/17 01:23> Objective - Vital Signs/Intake and Output Vital Signs (last 24 hours): Temp Pulse Resp BP Pulse Ox 98.8 F 75 20 129/79 94 L 08/22/17 17:15 08/22/17 17:15 08/22/17 17:15 08/22/17 18:16 08/22/17 17:15 Intake and Output: 08/22/17 08/23/17 18:59 06:59 Intake Total 260 960 Output Total 400 Balance 260 560 - Medications Medications: Current Medications Acetaminophen (Tylenol 325mg Tab) 650 mg PO Q4 PRN PRN Reason: Pain, moderate (4-7) Last Admin: 08/20/17 21:32 Dose: 650 mg Acetaminophen/Butalbital/Caffeine (Fioricet) 1 tab PO Q6H PRN PRN Reason: Headache Last Admin: 08/22/17 12:12 Dose: 1 tab Apixaban (Eliquis) 5 mg PO BID [facility] PRN Reason: Protocol Last Admin: 08/22/17 18:16 Dose: 5 mg Aripiprazole (Abilify) 30 mg PO HS [facility] PRN Reason: Protocol Last Admin: 08/22/17 21:57 Dose: 30 mg Atorvastatin Calcium (Lipitor) 10 mg PO DIN [facility] Last Admin: 08/22/17 18:16 Dose: 10 mg Clonazepam (Klonopin) 0.5 mg PO TID PRN; Protocol PRN Reason: Agitation Last Admin: 08/22/17 21:56 Dose: 0.5 mg Doxycycline Hyclate (Doryx) 100 mg PO Q12 [facility] PRN Reason: Protocol Last Admin: 08/22/17 21:57 Dose: 100 mg Duloxetine HCl (Cymbalta) 60 mg PO DAILY [facility] Last Admin: 08/22/17 09:46 Dose: 60 mg Cefepime HCl (Maxipime 1gm) 1 gm in 100 mls @ 100 mls/hr IVPB Q12 [facility] PRN Reason: Protocol Last Admin: 08/22/17 21:56 Dose: 100 mls/hr Sodium Nitroprusside 50 mg/ (Dextrose) 252 mls @ 16.7 mls/hr IV .Q15H6M PRN; Protocol; 0.5 MCG/KG/MIN PRN Reason: TITRATE PER MD ORDER Levalbuterol HCl (Xopenex) 0.63 mg IH TIDRESP [facility] Last Admin: 08/22/17 19:37 Dose: 0.63 mg Levothyroxine Sodium (Synthroid) 175 mcg PO 0600 [facility] Last Admin: 08/22/17 05:25 Dose: 175 mcg Metoprolol Tartrate (Lopressor) 12.5 mg PO BID [facility] Last Admin: 08/22/17 18:16 Dose: 12.5 mg Ondansetron HCl (Zofran Odt) 4 mg PO Q8H PRN PRN Reason: Nausea/Vomiting Last Admin: 08/22/17 12:12 Dose: 4 mg Pantoprazole Sodium (Protonix Ec Tab) 40 mg PO DAILY [facility] Last Admin: 08/22/17 09:46 Dose: 40 mg Pregabalin (Lyrica) 50 mg PO BID [facility] Last Admin: 08/22/17 18:17 Dose: 50 mg Sodium Chloride ([place] Nasal [place]) 0 ml NS Q4 PRN PRN Reason: Nasal congestion Last Admin: 08/19/17 18:26 Dose: 2 sprays Sucralfate (Carafate Oral Susp) 1 gm PO BID [facility] Last Admin: 08/22/17 18:16 Dose: 1 gm Zolpidem Tartrate (Ambien) 5 mg PO HS PRN; Protocol PRN Reason: Insomnia Last Admin: 08/22/17 22:05 Dose: 5 mg - Labs Labs: 08/21/17 06:30 08/21/17 06:30 PT 12.5 SECONDS (9.4-12.5) 08/18/17 06:30 INR 1.09 (0.93-1.08) H 08/18/17 06:30 Attending/Attestation - Attestation I have personally seen and examined this patient.: Yes I have fully participated in the care of the patient.: Yes I have reviewed all pertinent clinical information, including history, physical exam and plan: Yes Notes (Text): This is an addendum to GI progress report dictated by Bee Pickens APN.The patient was seen and examined earlier. Medical records, lab studies, imagings were reviewed. Last 24 hours events reviewed. Agreed with the above treatment plan as outlined in Bee Pickens APN's notes the with the addition of the following Above events noted Abdomen soft no tenderness tolerating diet continue PPI, outpatient MR Yanez 08/23/17 01:21
--- NOTE | 2017-08-23 01:27 | PN ---
DATE: 08/22/2017 REFERRING PHYSICIAN: Ronal Kahn MD SUBJECTIVE: She is lying in the bed, head at 45 degrees. Feeling fine. Overnight events noted. Has a near syncope. Seen by Neurology. Extensive workup done including MRI of the brain, MRA of the neck, and MRA of the brain, which are all unremarkable. Presently, there is no headache, no rhinitis. Mild cough. No dysuria. No leg pain or leg swelling. OBJECTIVE: GENERAL: In no acute distress. VITAL SIGNS: Temperature is 98, heart rate is 75, respiratory rate is 20, blood pressure 129/79, pulse ox 94% on room air. HEENT: Moist mucous membrane. Crowded airway. Mallampati score is 4. NECK: Supple. No JVD. LUNGS: Have fair airflow with rhonchi. HEART: S1, S2. ABDOMEN: Soft, nontender, no organomegaly. EXTREMITIES: There is no edema. NEUROLOGIC: Awake, alert, follows simple command. MEDICATIONS: She is on Abilify 30 mg at bedtime, Ambien 5 mg at bedtime p.r.n., Carafate 1 g p.o. twice a day, Cymbalta 60 mg daily, doxycycline 100 mg twice a day, Eliquis 5 mg twice a day, Fioricet 1 tablet q.6h. p.r.n., Klonopin 0.5 mg three times a day p.r.n., Lipitor 10 mg daily, metoprolol tartrate 12.5 mg twice a day, Lyrica 50 mg twice a day, cefepime 1 g IV q.12h., nasal saline one spray each nostril q. 4 hours p.r.n., Protonix 40 mg daily, the patient was placed on nitroprusside, Synthroid is 175 mcg daily, Tylenol p.r.n., Xopenex 0.63 three times a day, Zofran p.r.n. basis. LABORATORY DATA: Reviewed. Blood sugar this morning is 111. Triglyceride 239. Cholesterol is 244. Microbiology; blood culture, urine culture, there is no growth. IMPRESSION AND PLAN: Resolving pneumonia, decreased cough and shortness of breath, near syncopal episode, atrial fibrillation, history of gastric bypass surgery in the remote past, has sleep apnea syndrome, claustrophobic, schizophrenia, depression. I had a long discussion with the patient about sleep apnea, recurrent TIA, CVA, and risk of sleep apnea. Still not ready to use CPAP/BiPAP. Also on multiple sedatives. Fall precaution. Gastric prophylaxis. Anticoagulation. Follow up labs the morning. Thank you and we will follow with you. Gisselle Sears MD
[2017-08-23] MEDS: Levothyroxine 175 MCG TAB PO SCH (05:59)
[2017-08-23] MEDS: Apap-Butalbital-Caffeine 325-50-40mg Tab PO PRN (06:27)
[2017-08-23 06:40] LABS: HEMOGLOBIN 12.4 g/dL (12.0-16.0); MEAN CORPUSCULAR HEMOGLOBIN 29.8 pg (25.0-35.0); MEAN CORPUSCULAR HGB CONC 31.4 g/dl (31.0-37.0); MEAN PLATELET VOLUME 10.2 fl (7.0-11.0); RBC 4.16 10^6/uL (3.5-6.1); RED CELL DISTRIBUTION WIDTH 15.3 % (11.5-14.5); WHITE BLOOD COUNT 8.6 10^3/ul (4.5-11.0)
[2017-08-23 07:24] LABS: ALB/GLOB RATIO 1.1 (1.1-1.8); ALBUMIN 3.6 g/dL (3.0-4.8); ALT/SGPT 24 U/L (7-56); AST/SGOT 23 U/L (14-36); BLOOD UREA NITROGEN 21 mg/dL (7-21); CALCIUM 9.5 mg/dL (8.4-10.5); GFR AFRICAN-AMERICAN > 60; GFR NON-AFRICAN AMERICAN 59
[2017-08-23] MEDS: Levalbuterol 0.63 MG/3 ML Inhal Soln UD IH SCH ×2 (07:35→13:40)
[2017-08-23] MEDS ORDERED: Potassium Chloride 20 mEq ER Tab PO ONE (09:26)
[2017-08-23] MEDS: Cefepime 1gm in NS 100ml 1 GM/100 ML BAG IVPB SCH (09:50)
[2017-08-23] MEDS: Sucralfate 1 gm/10 ml Oral Susp UD PO SCH (09:50)
[2017-08-23] MEDS: Pantoprazole 40 mg EC Tab PO SCH (09:51)
[2017-08-23 13:08] VITALS: BP 99/70; TEMP 97.5; O2SAT 97
--- NOTE | 2017-08-23 13:27 | CP.PCM.PN ---
Subjective - Date & Time of Evaluation Date of Evaluation: 08/23/17 Time of Evaluation: 11:10 - Subjective Subjective: S&E at bedside, chart reviewed. Patient still have some left sided weakness but states better, ambulate to bathroom with assistance. Having soft BM, no diarrhea. No N/V, tolerating oral intake. Objective - Vital Signs/Intake and Output Vital Signs (last 24 hours): Temp Pulse Resp BP Pulse Ox 97.5 F L 75 20 99/70 L 97 08/23/17 06:00 08/23/17 06:00 08/23/17 06:00 08/23/17 06:00 08/23/17 06:00 Intake and Output: 08/23/17 08/23/17 06:59 18:59 Intake Total 960 240 Output Total 400 300 Balance 560 -60 - Medications Medications: Current Medications Acetaminophen (Tylenol 325mg Tab) 650 mg PO Q4 PRN PRN Reason: Pain, moderate (4-7) Last Admin: 08/20/17 21:32 Dose: 650 mg Acetaminophen/Butalbital/Caffeine (Fioricet) 1 tab PO Q6H PRN PRN Reason: Headache Last Admin: 08/23/17 06:27 Dose: 1 tab Apixaban (Eliquis) 5 mg PO BID [facility] PRN Reason: Protocol Last Admin: 08/23/17 09:50 Dose: 5 mg Aripiprazole (Abilify) 30 mg PO HS [facility] PRN Reason: Protocol Last Admin: 08/22/17 21:57 Dose: 30 mg Atorvastatin Calcium (Lipitor) 10 mg PO DIN [facility] Last Admin: 08/22/17 18:16 Dose: 10 mg Clonazepam (Klonopin) 0.5 mg PO TID PRN; Protocol PRN Reason: Agitation Last Admin: 08/22/17 21:56 Dose: 0.5 mg Docusate Sodium (Colace) 100 mg PO BID [facility] Last Admin: 08/23/17 12:39 Dose: 100 mg Doxycycline Hyclate (Doryx) 100 mg PO Q12 [facility] PRN Reason: Protocol Last Admin: 08/23/17 09:51 Dose: 100 mg Duloxetine HCl (Cymbalta) 60 mg PO DAILY [facility] Last Admin: 08/23/17 09:51 Dose: 60 mg Cefepime HCl (Maxipime 1gm) 1 gm in 100 mls @ 100 mls/hr IVPB Q12 [facility] PRN Reason: Protocol Last Admin: 08/23/17 09:50 Dose: 100 mls/hr Levalbuterol HCl (Xopenex) 0.63 mg IH TIDRESP [facility] Last Admin: 08/23/17 07:35 Dose: 0.63 mg Levothyroxine Sodium (Synthroid) 175 mcg PO 0600 [facility] Last Admin: 08/23/17 05:59 Dose: 175 mcg Metoprolol Tartrate (Lopressor) 12.5 mg PO BID [facility] Last Admin: 08/23/17 09:51 Dose: 12.5 mg Ondansetron HCl (Zofran Odt) 4 mg PO Q8H PRN PRN Reason: Nausea/Vomiting Last Admin: 08/22/17 12:12 Dose: 4 mg Pantoprazole Sodium (Protonix Ec Tab) 40 mg PO DAILY [facility] Last Admin: 08/23/17 09:51 Dose: 40 mg Pregabalin (Lyrica) 50 mg PO BID [facility] Last Admin: 08/23/17 09:50 Dose: 50 mg Sodium Chloride ([place] Nasal [place]) 0 ml NS Q4 PRN PRN Reason: Nasal congestion Last Admin: 08/19/17 18:26 Dose: 2 sprays Sucralfate (Carafate Oral Susp) 1 gm PO BID [facility] Last Admin: 08/23/17 09:50 Dose: 1 gm Zolpidem Tartrate (Ambien) 5 mg PO HS PRN; Protocol PRN Reason: Insomnia Last Admin: 08/22/17 22:05 Dose: 5 mg - Labs Labs: 08/23/17 06:20 08/23/17 06:20 PT 12.5 SECONDS (9.4-12.5) 08/18/17 06:30 INR 1.09 (0.93-1.08) H 08/18/17 06:30 - Constitutional Appears: No Acute Distress - Head Exam Head Exam: NORMAL INSPECTION - Eye Exam Eye Exam: absent: Scleral icterus - ENT Exam ENT Exam: Mucous Membranes Moist - Neck Exam Neck Exam: Normal Inspection - Respiratory Exam Respiratory Exam: NORMAL BREATHING PATTERN. absent: Respiratory Distress - Cardiovascular Exam Cardiovascular Exam: +S1, +S2 - GI/Abdominal Exam GI & Abdominal Exam: Soft, Normal Bowel Sounds. absent: Guarding, Tenderness, Rebound - Extremities Exam Extremities Exam: absent: Calf Tenderness - Neurological Exam Neurological Exam: Alert, Awake, Oriented x3 Additional comments: noted left sided weakness - Skin Skin Exam: Dry, Warm Assessment and Plan - Assessment and Plan (Free Text) Assessment: Assessment: S/P Code stroke, ct head, mild brain atrophy, MRA neck and brain no acute findings Resolved Chest pain, status post stress test Recent egd/colon 07/2017: gastric erosion History of gastric bypass Chronic nausea/diarrhea, improved Atrial fibrillation TIA Schizophrenia Iron deficiency anemia GERD Plan: soft diet, chew food well, aspiration precaution Continued GI prophylaxis DVT prophylaxis On Eliquis On oral antibiotics On Carafate neurology FU MR enterography outpatient workup, FU IBD serology, discuss w/ patient will schedule when discharged Seen and discussed with Dr. Sanchez.
--- NOTE | 2017-08-23 14:34 | PN ---
DATE: REASON FOR CONSULTATION: Atypical chest pain, status post rapid response, negative stress test SUBJECTIVE: The patient denies any chest pain, shortness of breath or any palpitations. The patient is not in any apparent distress. PHYSICAL EXAMINATION VITAL SIGNS: Temperature afebrile, heart rate 75, blood pressure 129/79. HEENT: PERRLA. Extraocular muscles intact. NECK: Supple. No carotid bruit or thyromegaly. CHEST: Clear to auscultation. HEART: S1 and S2 regular. ABDOMEN: Soft. EXTREMITIES: Clubbing and cyanosis negative. LABORATORY DATA: Blood workup as follows: WBC 8.6, hemoglobin 12.4, hematocrit 39.5, platelet count 297,000. Chemistry shows sodium 141, potassium 3.8, chloride 104, carbon dioxide 27, anion gap of 14. MRI of the brain is essentially negative. IMPRESSION: A 52-year-old female with past history of morbid obesity, body mass index of 39 kg/m2 admitted with atypical chest pain, no evidence of acute myocardial infarction, stress test negative for ischemia; history of schizophrenia; gastric bypass; history of hypothyroidism; questionable history of insulinoma; history of benign neoplasm of the pituitary gland; iron deficiency anemia requiring multiple blood transfusions; hypercoagulable state, on Eliquis. Last echo shows ejection fraction of 55% to 60%, trace aortic regurgitation, [id number] mitral regurgitation, mild tricuspid regurgitation, negative stress test, had a rapid response suspicious of TIA. MRI is negative. RECOMMENDATIONS: Continue low-dose beta luisa as tolerated. Continue Eliquis. If CVS status is stable, we will discontinue telemetry. No further cardiac workup is planned or warranted. From Cardiology point of view, the patient is stable to be discharged. We will supplement potassium for low potassium. Continue atorvastatin. Thank you Dr. Malave for providing us the opportunity in taking care of the patient. Gisselle Parker MD
--- NOTE | 2017-08-23 16:19 | CP.PCM.DIS ---
Provider - Provider Date of Admission: 08/18/17 14:16 Attending physician: Ronal Kahn MD Primary care physician: Betzy Malave MD Consults: Cardio Dr. Keith Sanchez Neuro Dr. Jessee Sears Time Spent in preparation of Discharge (in minutes): 65 Diagnosis - Discharge Diagnosis (1) TIA (transient ischemic attack) Status: Acute Priority: High (2) Chest pain Status: Acute Priority: High (3) Hypothyroidism Status: Chronic (4) Schizoaffective disorder Status: Chronic Hospital Course - Lab Results Lab Results: Micro Results 08/19/17 15:20 Urine,Clean Catch Urine Culture - Final No Growth (<1,000 CFU/ML) Most Recent Lab Values WBC 8.6 10^3/ul (4.5-11.0) D 08/23/17 06:20 RBC 4.16 10^6/uL (3.5-6.1) 08/23/17 06:20 Hgb 12.4 g/dL (12.0-16.0) 08/23/17 06:20 Hct 39.5 % (36.0-48.0) 08/23/17 06:20 MCV 95.0 fl (80.0-105.0) 08/23/17 06:20 MCH 29.8 pg (25.0-35.0) 08/23/17 06:20 MCHC 31.4 g/dl (31.0-37.0) 08/23/17 06:20 RDW 15.3 % (11.5-14.5) H 08/23/17 06:20 Plt Count 297 10^3/uL (120.0-450.0) 08/23/17 06:20 MPV 10.2 fl (7.0-11.0) 08/23/17 06:20 Gran % 49.2 % (50.0-68.0) L 08/21/17 06:30 Lymph % (Auto) 38.6 % (22.0-35.0) H 08/21/17 06:30 [place] % (Auto) 8.7 % (1.0-6.0) H 08/21/17 06:30 Eos % (Auto) 3.0 % (1.5-5.0) 08/21/17 06:30 Baso % (Auto) 0.5 % (0.0-3.0) 08/21/17 06:30 Gran # 2.99 (1.4-6.5) 08/21/17 06:30 Lymph # (Auto) 2.3 (1.2-3.4) 08/21/17 06:30 [place] # (Auto) 0.5 (0.1-0.6) 08/21/17 06:30 Eos # (Auto) 0.2 (0.0-0.7) 08/21/17 06:30 Baso # (Auto) 0.03 K/mm3 (0.0-2.0) 08/21/17 06:30 PT 12.5 SECONDS (9.4-12.5) 08/18/17 06:30 INR 1.09 (0.93-1.08) H 08/18/17 06:30 D-Dimer, Quantitative < 200 ng/mL (0-243) 08/17/17 19:16 Sodium 141 mmol/L (132-148) 08/23/17 06:20 Potassium 3.8 mmol/L (3.6-5.0) 08/23/17 06:20 Chloride 104 mmol/L (98-107) 08/23/17 06:20 Carbon Dioxide 27 mmol/L (21-33) 08/23/17 06:20 Anion Gap 14 (10-20) 08/23/17 06:20 BUN 21 mg/dL (7-21) 08/23/17 06:20 Creatinine 1.0 mg/dl (0.7-1.2) 08/23/17 06:20 Est GFR ( Amer) > 60 08/23/17 06:20 Est GFR (Non-Af Amer) 59 08/23/17 06:20 POC Glucose (mg/dL) 86 mg/dL (65-110) 08/23/17 11:45 Random Glucose 104 mg/dL (70-110) 08/23/17 06:20 Hemoglobin A1c 5.2 % (4.2-6.5) 08/18/17 06:30 Calcium 9.5 mg/dL (8.4-10.5) 08/23/17 06:20 Total Bilirubin 0.4 mg/dL (0.2-1.3) 08/23/17 06:20 AST 23 U/L (14-36) 08/23/17 06:20 ALT 24 U/L (7-56) 08/23/17 06:20 Alkaline Phosphatase 111 U/L (38-126) 08/23/17 06:20 Lactate Dehydrogenase 452 U/L (333-699) 08/17/17 19:16 Total Creatine Kinase 68 U/L (35-230) 08/17/17 19:16 Troponin I < 0.01 ng/mL D 08/17/17 19:16 NT-Pro-B Natriuret Pep 258 pg/mL (0-450) 08/17/17 19:16 Total Protein 6.9 g/dL (5.8-8.3) 08/23/17 06:20 Albumin 3.6 g/dL (3.0-4.8) 08/23/17 06:20 Globulin 3.3 gm/dL 08/23/17 06:20 Albumin/Globulin Ratio 1.1 (1.1-1.8) 08/23/17 06:20 Triglycerides 239 mg/dL (35-160) H 08/22/17 11:20 Cholesterol 244 mg/dL (130-200) H 08/22/17 11:20 LDL Cholesterol Direct 116 mg/dL (0-129) 08/22/17 11:20 HDL Cholesterol 71 mg/dL (29-60) H 08/22/17 11:20 Procalcitonin < 0.05 NG/ML (0.19-0.49) L 08/19/17 08:00 Urine Color Yellow (YELLOW) 08/19/17 13:31 Urine Appearance Clear (CLEAR) 08/19/17 13:31 Urine pH 6.0 (4.7-8.0) 08/19/17 13:31 Ur Specific [place] 1.010 (1.005-1.035) 08/19/17 13:31 Urine Protein Negative mg/dL (<30 mg/dL) 08/19/17 13:31 Urine Glucose (UA) Negative mg/dL (NEGATIVE) 08/19/17 13:31 Urine Ketones Negative mg/dL (NEGATIVE) 08/19/17 13:31 Urine Blood Small (NEGATIVE) H 08/19/17 13:31 Urine Nitrate Negative (NEGATIVE) 08/19/17 13:31 Urine Bilirubin Negative (NEGATIVE) 08/19/17 13:31 Urine Urobilinogen 0.2 E.U./dL (<1 E.U./dL) 08/19/17 13:31 Ur Leukocyte Esterase Small Alicia/uL (NEGATIVE) H 08/19/17 13:31 Urine RBC 0 - 2 /hpf (0-2) 08/19/17 13:31 Urine WBC 5 - 10 /hpf (0-6) 08/19/17 13:31 Ur Epithelial Cells 1 - 3 /hpf (0-5) 08/19/17 13:31 Urine Bacteria Few (NEG) 08/19/17 13:31 Influenza Typ A,B (EIA) Negative for flu a/b (NEGATIVE) 08/17/17 23:10 Ur L.pneumophila Ag Negative (NEGATIVE) 08/19/17 06:15 - Hospital Course Hospital Course: 52 year old female with a PMH of atrial fibrillation, SHERRY, gastric bypass surgery, TIAs, and hypercoagulable state on eliquis who presented to [facility] ER with chest discomfort. Patient was evaluated by cardiology and had negative troponins. Patient also had a stress test which was negative. Patient's pain was thought to be related to possible pneumonia with pleuritic pain as during a CT abd/pelvis she was found to have some suggestive findings of consolidation of the lower lung cardoza. Patient had a dedicated chest CT which did show consolidation over right lower lobe. Patient was evaluated by ID and Pulm empirically treated with doxycycline and cefepime with improvement in symptoms. Given history of diarrhea a legionella ag sample was drawn but was negative. Patient on the night of 08/21 had a code stroke called as she had some left sided deficits including left facial droop and left UE weakness. Patient had elevated cholesterol during work up for chest pain and was started on atorvastatin. Patient had a negative CT and neurology was consulted. Patient had an MRI of the brain as well as head and neck MRAs all of which were negative. Patient was noted to have hypoglycemia of 60 and 55 during this code stroke episode and her symptoms improved with an amp of D50 and so hypoglycemia may have been a factor. Patient on 08/23 was evaluated after having completed a 6 day course of doxycycline and cefepime and found to still have some mild left sided deficits but overall in much better condition. Evaluation by PT was performed and patient able to care for self and so she was discharged in a stable condition of 08/23/17 with clear instructions to follow up with Dr. Malave in the office as well as the other consultants, particularly Dr. 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 Patient's medical reconciliation was done and new scripts for carafate and atorvastatin were sent to her pharmacy. - Date & Time of H&P Date of H&P: 08/23/17 Time of H&P: 18:00 Discharge Exam - Head Exam Head Exam: ATRAUMATIC, NORMAL INSPECTION, NORMOCEPHALIC - Eye Exam Eye Exam: EOMI, PERRL - ENT Exam ENT Exam: Mucous Membranes Moist, Normal Oropharynx - Neck Exam Neck exam: Normal Inspection - Respiratory Exam Respiratory Exam: Clear to PA & Lateral. absent: Rales, Wheezes - Cardiovascular Exam Cardiovascular Exam: +S1, +S2 - GI/Abdominal Exam GI & Abdominal Exam: Normal Bowel Sounds, Soft. 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 Malave next week. Carafate liquid sent to pharmacy. Return to ER for any worsening symptoms or concerns. Referrals: Betzy Malave MD [Primary Care Provider] -
--- NOTE | 2017-08-23 18:50 | PN ---
DATE: PULMONARY PROGRESS NOTE REFERRING PHYSICIAN: Ronal Kahn MD. SUBJECTIVE: She is lying in the bed at 45 degrees. Night was unremarkable. Being discharged home. No headache, no rhinitis, no nausea, no vomiting, no diarrhea. No leg pain or leg swelling. OBJECTIVE: GENERAL: In no acute distress. VITAL SIGNS: Temperature is 98, heart rate 74, respiratory rate is 20, blood pressure 99/70, pulse ox 97% on room air. HEENT: Moist mucous membrane. Crowded airway. Mallampati score is 4. NECK: Supple. No JVD. LUNGS: Have a fair airflow with rhonchi. HEART: S1 and S2. ABDOMEN: Soft, nontender. No organomegaly. EXTREMITIES: No edema. NEUROLOGIC: Awake, alert, follows simple command. MEDICATIONS: She is on Abilify 30 mg at bedtime, Carafate 1 g twice a day, Colace 100 mg twice a day, Cymbalta 60 mg daily, doxycycline 100 mg twice a day, Eliquis 5 mg twice a day, Fioricet 1 tab q.6 hours p.r.n., Klonopin 0.5 mg 3 times a day p.r.n., Lipitor 10 mg daily, metoprolol tartrate 12.5 mg twice a day, Lyrica 50 mg daily, Maxipime 1 g IV q.12 hours, nasal saline one spray to each nostril q.6 hours, Protonix 40 mg daily, Synthroid 175 mcg daily, Tylenol p.r.n., Xopenex inhaled q.8 hours, Zofran p.r.n. basis. LABORATORY DATA: Shows hemoglobin 12.4, hematocrit 39.5, WBC 8.6, platelet is 297. Sodium 141, potassium 3.8, chloride 104, bicarbonate 27, BUN 21, creatinine 1.0, glucose 86, calcium 9.5, AST 23, ALT 24, alkaline phosphatase is 111, albumin is 3.6. Microbiology: Blood culture, urine culture, there is no growth. IMPRESSION AND PLAN: Resolving pneumonia, status post transient ischemic attack, atrial fibrillation, history of gastric bypass surgery in the remote past, sleep apnea syndrome, claustrophobic schizophrenia, depression. Last sleep study she had about 2-3 years ago. Does not have any CPAP, especially with her history of schizophrenia, on multiple sedatives and antipsychotic medication. She should have attended sleep study, probably can do study and get her nasal pillow mask for the CPAP. She understands the problem and willing to try again. We will call sleep center to schedule her as outpatient study. Gisselle Sears MD
== END 2017-08-23 15:50 | disposition home or self-care (01) | DRG 194 ==
LOC: ED 18:23 → ERH 22:50 → 2RNO 08-18 00:03 → OBSVTOIN 08-18 14:16 → 3RNO 08-22 13:40
PROVIDERS: ADMIT Family Medicine; ATTEND Family Medicine
DX: J18.9 Pneumonia, unspecified organism (principal); D68.59 Other primary thrombophilia; I69.354 Hemiplegia and hemiparesis following cerebral infarction affecting left non-dominant side; Z68.41 Body mass index [BMI] 40.0-44.9, adult; E11.649 Type 2 diabetes mellitus with hypoglycemia without coma; I48.0 Paroxysmal atrial fibrillation; E03.9 Hypothyroidism, unspecified; F31.9 Bipolar disorder, unspecified; G47.33 Obstructive sleep apnea (adult) (pediatric); D50.9 Iron deficiency anemia, unspecified; D35.2 Benign neoplasm of pituitary gland; G31.9 Degenerative disease of nervous system, unspecified; F25.9 Schizoaffective disorder, unspecified; E66.01 Morbid (severe) obesity due to excess calories; K21.9 Gastro-esophageal reflux disease without esophagitis; M06.9 Rheumatoid arthritis, unspecified; M79.7 Fibromyalgia; I95.1 Orthostatic hypotension; F40.240 Claustrophobia; R07.89 Other chest pain; I08.3 Combined rheumatic disorders of mitral, aortic and tricuspid valves; Y95 Nosocomial condition; Z87.11 Personal history of peptic ulcer disease; Z79.01 Long term (current) use of anticoagulants; Z98.84 Bariatric surgery status

== ENCOUNTER 2017-09-10 10:00 | Inpatient (IN) | payer MEDICARE, MEDICAID, OTHER ==
[2017-09-10 10:16] VITALS: BMI 37.1
[2017-09-10] MEDS ORDERED: Sodium Chloride 0.9% 500 ML IV STA (10:36)
--- NOTE | 2017-09-10 10:37 | ED PDOC ---
Arrival/HPI - General Chief Complaint: Fever Time Seen by Provider: 09/10/17 10:32 Historian: Patient - History of Present Illness Narrative History of Present Illness (Text): 09/10/17 10:37 pt p/w + 1 day onset of not feeling well/severe weakness/fatigue; + fever/Tmax ~ 100.2, + chills/sweats/shivers, + body aches, + mild headache, + poor appetite , + 1 episode of vomiting/+ nausea, no cp, + mild sob, no palpitations, no abd pain, no rashes, no bowel changes, + 1-2 days onset of dysuria/? frequency; no hematuria; pt states no LOC, + lightheadedness/dizziness; pt denied other complaints; pt is here for further eval. PCP: Dr Luke Powers Time/Duration: 24 hours Symptom Onset: Sudden Symptom Course: Unchanged Activities at Onset: Rest Context: Home Past Medical History - Provider Review Nursing Documentation Reviewed: Yes - Travel History Have you recently traveled outside [place] w/in the past 3 mons?: No - Past History Past History: No Previous - Infectious Disease Hx of Infectious Diseases: None - Tetanus Immunization Tetanus Immunization: Unknown - Reproductive Menopause: Yes (age 32) - Cardiac Hx Hypertension: Yes - Pulmonary Hx Asthma: Yes Hx Pneumonia: Yes - Neurological HX Cerebrovascular Accident: Yes - HEENT Hx HEENT Disorder: Yes (eyeglasses) - Renal Hx Renal Disorder: Yes Hx Kidney Stones: Yes - Endocrine/Metabolic Hx Hypothyroidism: Yes - Hematological/Oncological Hx Anemia: Yes - Integumentary Other/Comment: mid chest steri strips intact loop recorded implanted, multiple round brown spots ble - Musculoskeletal/Rheumatological Hx Falls: No Hx Osteoporosis: Yes - Gastrointestinal Hx Gastrointestinal Disorders: Yes (gi bleed, obese) Hx Gastroesophageal Reflux: Yes - Genitourinary/Gynecological Hx Genitourinary Disorders: No - Psychiatric Hx Anxiety: Yes Hx Bipolar Disorder: Yes Hx Depression: Yes Hx Schizophrenia: Yes Hx Substance Use: No - Surgical History Hx Gastric Bypass Surgery: Yes (07/26/1999 235 lb weight loss) Other/Comment: R chest port for iron infusions and hydration. - Anesthesia Hx Anesthesia Reactions: No Hx Malignant Hyperthermia: No - Suicidal Assessment Feels Threatened In Home Enviroment: No Family/Social History - Physician Review Nursing Documentation Reviewed: Yes Family/Social History: No Known Family HX Smoking Status: Never Smoked Hx Alcohol Use: No Hx Substance Use: No Hx Substance Use Treatment: No Allergies/Home Meds Allergies/Adverse Reactions: Allergies Iodinated Contrast- Oral and IV Dye [Iodinated Contrast Media - IV Dye] Allergy (Verified 08/17/17 18:34) RASH iodine Allergy (Verified 08/17/17 18:34) RASH meperidine Allergy (Verified 09/10/17 10:16) RASH Home Medications: Home Meds Medication Instructions Recorded Confirmed Zolpidem Tartrate [Ambien] 10 mg PO HS 09/12/14 09/10/17 Pregabalin [Lyrica] 50 mg PO DAILY 04/07/15 09/10/17 Glucagon [Glucagen Diagnostic Kit] 1 mg IM PRN PRN 10/02/16 09/10/17 DULoxetine [Cymbalta] 90 mg PO BID 12/30/16 09/10/17 Levothyroxine [Synthroid] 175 mcg PO ACB 02/01/17 09/10/17 Pantoprazole [Protonix EC Tab] 40 mg PO DAILY 03/21/17 09/10/17 ARIPiprazole [Abilify] 30 mg PO BID 07/20/17 09/10/17 Enoxaparin [Lovenox] 90 mg SC DAILY 07/20/17 09/10/17 Review of Systems - Review of Systems Constitutional: Fatigue, Fevers Eyes: Normal ENT: Sore Throat, Other (congestion) Respiratory: Cough Cardiovascular: Normal Gastrointestinal: Nausea, Vomiting Genitourinary Female: Dysuria, Frequency Musculoskeletal: Back Pain, Other (body aches) Skin: Normal Neurological: Headache, Dizziness Endocrine: Normal Hemo/Lymphatic: Normal Psychiatric: Normal Physical Exam Vital Signs Reviewed: Yes Vital Signs Temp Pulse Resp BP Pulse Ox 09/10/17 14:52 110 H 18 106/78 95 09/10/17 13:05 98.7 F 105 H 18 110/78 95 09/10/17 11:49 111 H 18 108/79 95 09/10/17 10:20 99.0 F 117 H 20 104/74 92 L 09/10/17 10:14 100.3 F H 116 H 18 104/74 92 L Temperature: Febrile Blood Pressure: Normal Pulse: Tachycardic Respiratory Rate: Normal Appearance: Positive for: Well-Appearing, Uncomfortable, Other (alert/awake, GCS = 15, oriented x 3, uncomfortable, no acute distress noted, follows command with ease, cooperative) Pain Distress: None Mental Status: Positive for: Alert and Oriented X 3 - Systems Exam Head: Present: Atraumatic, Normocephalic Pupils: Present: PERRL, Other (no nystagmus, no photophobia, sclera anicteric, visual field intact b/l) Extroacular Muscles: Present: EOMI Conjunctiva: Present: Normal Ears: Present: Normal Mouth: Present: Normal Teeth, Other (uvula/tongue are midline, mild dry oral mucosa, no drooling/stridor, no dysphonia) Pharnyx: Present: Normal Nose (External): Present: Atraumatic Nose (Internal): Present: Normal Inspection Neck: Present: Normal Range of Motion, Trachea Midline, Other (intact ROM, no midline tenderness, no nuchal rigidity, no meningeal signs). No: MIDLINE TENDERNESS Respiratory/Chest: Present: Clear to Auscultation, Good Air Exchange, Other ( CTA b/l, no w/r/r, no accessory muscle use noted, no tachypenia) Cardiovascular: Present: Normal S1, S2, Tachycardic, Other (+ regular rhythm). No: Murmurs Abdomen: Present: Normal Bowel Sounds, Other (well nourished/obese female, no focal tenderness, no kim's sign, no mcburney's point tenderness, no masses/ rebound/guarding/rigidity) Back: Present: Normal Inspection, Other (intact ROM, no gross deformities). No : CVA Tenderness, Midline Tenderness Upper Extremity: Present: Normal Inspection, Normal ROM, NORMAL PULSES, Neurovascularly Intact, Capillary Refill < 2s Lower Extremity: Present: Normal Inspection, NORMAL PULSES, Normal ROM, Neurovascularly Intact, Capillary Refill < 2 s, Other (strength 5/5 grossly intact in all limbs) Neurological: Present: GCS=15, CN II-XII Intact, Speech Normal, Other (no facial asymmetries, no slurr speech, NIH stroke scale ~ 0) Skin: Present: Warm, Normal Color, Other (cap refill ~ 1sec, no ulcerations, no petechiae, mild pallor) Psychiatric: Present: Alert, Oriented x 3 Medical Decision Making ED Course and Treatment: 09/10/17 10:37 Impression: fever/shivers/not feeling well i have consider all the differential diagnosis regarding pt's chief medical complaints/clinical findings, including but are not limited to: fever/shivers/ not feeling well A/P: fever/shivers/weakness - labs - iv - xray - ? cultures - rapid flu - observe - supportive care Progress Notes: 09/10/17 13:41 Discussed case in detail with Dr. Malave who was made aware and agrees with mission. Will admit the patient to his service. He also requests further blood cultures to start antibiotics. Would also like a consult with Dr. Bustamante, infectious disease. Re-evaluation Time: 13:09 Reassessment Condition: Improving,but remains with symptoms - Critical Care Critical Care Minutes: 45 minutes Critical Care Time: Excluding Proc Time Narrative Critical Care (Text): 09/10/17 15:09 critical care time: 45min, excluding procedure time, excluding time teaching residents/students/mid-level providers; including initial eval/diagnosis, diagnostic interpretation, re-eval, consultations, final disposition - Lab Interpretations Lab Results: 09/10/17 10:50 09/10/17 10:50 Lab Results 09/10/17 13:20: Urine Color Yellow, Urine Appearance Sl cloudy, Urine pH 6.0, Ur Specific [place] 1.015, Urine Protein Negative, Urine Glucose (UA) Negative, Urine Ketones Negative, Urine Blood Large H, Urine Nitrate Negative, Urine Bilirubin Negative, Urine Urobilinogen 0.2, Ur Leukocyte Esterase Negative, Urine RBC Tntc, Urine WBC 2 - 5, Ur Epithelial Cells 4 - 5, Urine Bacteria Mod 09/10/17 11:25: Influenza Typ A,B (EIA) Negative for flu a/b 09/10/17 10:50: Sodium 144, Chloride 108 H, Potassium 3.6, Carbon Dioxide 26, Anion Gap 14, BUN 14, Creatinine 1.0, Est GFR ( Amer) > 60, Est GFR (Non- Af Amer) 59, Random Glucose 95, Calcium 9.6, Total Bilirubin 0.6, AST 24, ALT 24 , Alkaline Phosphatase 112, NT-Pro-B Natriuret Pep 1010 H, Total Protein 7.1, Albumin 3.7, Globulin 3.4, Albumin/Globulin Ratio 1.1 09/10/17 10:50: pO2 174 H, VBG pH 7.46 H, VBG pCO2 37.0 L, VBG HCO3 26.3, VBG Total CO2 27.4, VBG O2 Sat (Calc) 100.0 H, VBG Base Excess 2.5 H, VBG Potassium 3.7, Sodium 141.0, Chloride 110.0 H, Glucose 98, Lactate 0.9, FiO2 21.0, Venous Blood Potassium 3.7 09/10/17 10:50: WBC 21.5 H D, RBC 4.02, Hgb 12.0, Hct 36.1, MCV 89.8 D, MCH 29.9, MCHC 33.2, RDW 14.8 H, Plt Count 285, MPV 9.7, Gran % 92.2 H, Lymph % ( Auto) 4.8 L, [place] % (Auto) 2.8, Eos % (Auto) 0.1 L, Baso % (Auto) 0.1, Gran # 19.77 H, Lymph # (Auto) 1.0 L, [place] # (Auto) 0.6, Eos # (Auto) 0.0, Baso # (Auto ) 0.03, Neutrophils % (Manual) 92 H, Band Neutrophils % 2, Lymphocytes % (Manual ) 4 L, Monocytes % (Manual) 2, Platelet Evaluation Normal I have reviewed the lab results: Yes Interpretation: Abnormal lab values (elevated WBCs; mildly elevated BNP) - RAD Interpretation Narrative RAD Interpretations (Text): 09/10/17 15:10 + right evelina cath ? right basiliar atelectasis/consolidation, cephalization of pulm vascularture Radiology Orders: 09/10/17 10:32 CHEST TWO VIEWS (PA/LAT) [RAD] Stat Photo Tech: ED Physician - EKG Interpretation EKG Interpretation (Text): 09/10/17 11:54 sinus tach at 115 bpm, normal axis, no ectopy, non-specific st-t changes, ABNL EKG; no gross changes compare with old ekg 07/201709/10/17 11:55 Interpreted by ED Physician: Yes Type: 12 lead EKG Comparison: Similar to previous EKG - Medication Orders Current Medication Orders: Vancomycin HCl (Vancomycin 1gm) 1 gm in 250 mls @ 167 mls/hr IVPB STAT STA Stop: 09/10/17 15:23 Discontinued Medications Acetaminophen (Tylenol 325mg Tab) 650 mg PO STAT STA Stop: 09/10/17 11:53 Last Admin: 09/10/17 12:18 Dose: 650 mg MAR Pain/Vitals Document 09/10/17 12:18 EQ (Rec: 09/10/17 12:18 EQ [id number]) Pain Reassessment Is This A Pain ReAssessment? No Sleep Is patient sleeping during reassessment? No Presence of Pain Presence of Pain Yes Sodium Chloride (Sodium Chloride 0.9%) 500 mls @ 999 mls/hr IV .Q31M STA Stop: 09/10/17 11:06 Last Admin: 09/10/17 10:45 Dose: 999 mls/hr eMAR Start Stop Document 09/10/17 10:45 EQ (Rec: 09/10/17 10:45 EQ [id number]) Intravenous Solution Start Date 09/10/17 Start Time 10:45 Piperacillin Sod/Tazobactam Sod (Zosyn 4.5 Gm In Ns 100ml) 4.5 gm in 100 mls @ 200 mls/hr IVPB STAT STA PRN Reason: Protocol Stop: 09/10/17 14:17 Last Admin: 09/10/17 14:18 Dose: 200 mls/hr eMAR Start Stop Document 09/10/17 14:18 EQ (Rec: 09/10/17 14:18 EQ [id number]) Intravenous Solution Start Date 09/10/17 Start Time 14:18 Oseltamivir Phosphate (Tamiflu Cap) 75 mg PO ONCE ONE PRN Reason: Protocol Stop: 09/10/17 13:48 Last Admin: 09/10/17 14:18 Dose: 75 mg Disposition/Present on Arrival - Present on Arrival Any Indicators Present on Arrival: No History of DVT/PE: No History of Uncontrolled Diabetes: No Urinary Catheter: No History of Decub. Ulcer: No History Surgical Site Infection Following: None - Disposition Have Diagnosis and Disposition been Completed?: Yes Diagnosis: High risk for sepsis, Fever, Weakness Disposition: HOSPITALIZED Disposition Time: 13:15 Patient Plan: Admission Condition: STABLE
[2017-09-10 11:02] LABS: BASO # 0.03 K/mm3 (0.0-2.0); BASO % 0.1 % (0.0-3.0); EOS % 0.1 % (1.5-5.0); GRAN # 19.77 (1.4-6.5); GRAN % 92.2 % (50.0-68.0); LYMPH % 4.8 % (22.0-35.0); MEAN CELL VOLUME 89.8 fl (80.0-105.0); MEAN CORPUSCULAR HEMOGLOBIN 29.9 pg (25.0-35.0); MEAN CORPUSCULAR HGB CONC 33.2 g/dl (31.0-37.0); MEAN PLATELET VOLUME 9.7 fl (7.0-11.0); MONO # 0.6 (0.1-0.6); MONO % 2.8 % (1.0-6.0); PLATELET COUNT 285 10^3/uL (120.0-450.0); RBC 4.02 10^6/uL (3.5-6.1); RED CELL DISTRIBUTION WIDTH 14.8 % (11.5-14.5); WHITE BLOOD COUNT 21.5 10^3/ul (4.5-11.0)
[2017-09-10 11:03] LABS: VENOUS BLOOD GAS BASE EXCESS 2.5 mmol/L (0.0-2.0); VENOUS BLOOD GAS PO2 174 mm/Hg (30-55); VENOUS BLOOD PH 7.46 (7.32-7.43)
[2017-09-10 11:13] LABS: ALB/GLOB RATIO 1.1 (1.1-1.8); ALBUMIN 3.7 g/dL (3.0-4.8); ALT/SGPT 24 U/L (7-56); AST/SGOT 24 U/L (14-36); BLOOD UREA NITROGEN 14 mg/dL (7-21); CALCIUM 9.6 mg/dL (8.4-10.5); GFR AFRICAN-AMERICAN > 60; GFR NON-AFRICAN AMERICAN 59
[2017-09-10 11:15] LABS: BAND 2 % (0-2); LYMPHOCYTE 4 % (22.0-35.0); MONOCYTE 2 % (1.0-6.0); NEUTROPHIL 92 % (50.0-70.0); PLATELET ESTIMATE NORMAL (NORMAL)
[2017-09-10 11:20] LABS: B-TYPE NATRIURETIC PEPTIDE 1010 pg/mL (0-450)
--- NOTE | 2017-09-10 13:38 | RAD ---
HISTORY: fever/sob COMPARISON: Comparison is made with 08/17/2017 TECHNIQUE: Chest PA and lateral FINDINGS: LUNGS: Bibasilar opacities are noted likely represent atelectasis. Otherwise no significant interval change in the lungs since the previous exam. PLEURA: No significant pleural effusion identified. No pneumothorax apparent. CARDIOVASCULAR: Normal. OSSEOUS STRUCTURES: No significant abnormalities. VISUALIZED UPPER ABDOMEN: Normal. OTHER FINDINGS: Right-sided Port-A-Cath is again seen in place. IMPRESSION: Bibasilar opacities likely represent atelectasis.
[2017-09-10 13:42] LABS: URINE BILIRUBIN NEGATIVE (NEGATIVE); URINE BLOOD LARGE (NEGATIVE); URINE GLUCOSE (UA) NEGATIVE (NEGATIVE); URINE LEUKOCYTE ESTERASE NEGATIVE Leu/uL (NEGATIVE); URINE PROTEIN NEGATIVE mg/dL (<30 mg/dL); URINE UROBILINOGEN 0.2 E.U./dL (<1 E.U./dL)
[2017-09-10] MEDS ORDERED: Vancomycin 500 mg Inj IVPB ONE (13:48)
[2017-09-10] MEDS ORDERED: Piperacill/Tazo 4.5gm in NS 4.5 GM/100 ML BAG IVPB STA (13:48)
[2017-09-10] MEDS ORDERED: Vancomycin 1gm in NS 250ml 1 GM/250 ML BAG IVPB STA (13:54)
[2017-09-10 13:59] LABS: URINE APPEARANCE SL CLOUDY (CLEAR); URINE COLOR YELLOW (YELLOW)
[2017-09-10 14:09] LABS: URINE BACTERIA MOD (NEG); URINE RBC TNTC /hpf (0-2)
[2017-09-10] MEDS: Vancomycin 1gm in NS 250ml 1 GM/250 ML BAG IVPB SCH (16:02)
[2017-09-10] MEDS: Sucralfate 1 gm/10 ml Oral Susp UD PO SCH (18:13)
[2017-09-10] MEDS: Sodium Chloride 0.9% 1,000 ML IV SCH (18:14)
[2017-09-10] MEDS: Meropenem IV 1 gm in NS 50 ML IVPB SCH (21:43)
--- NOTE | 2017-09-11 03:06 | CON ---
DATE: Patient is in bed. Patient is seen in the emergency room. CHIEF COMPLAINT: Fever x1 day duration. HISTORY OF PRESENT ILLNESS: This is a 52-year-old female with history of rheumatoid arthritis, TIA, history of MRSA bacteremia secondary to Port-A-Cath which was replaced, history of obstructive sleep apnea, morbid obesity in the past with a BMI of 41, hypothyroidism, schizoaffective, bipolar, atrial fibrillation, kidney disease, healthcare-associated pneumonia in the past. Now, she was admitted with a fever x1 day duration associated with cough, which is nonproductive. There is shortness of breath. No chest pain, no hemoptysis. No abdominal pain, diarrhea or constipation. REVIEW OF SYSTEMS: Reveals no headaches, no blurred vision. No dysuria or frequency. No joint pain. No muscle pain. PAST MEDICAL HISTORY: Significant for rheumatoid arthritis, TIA, obstructive sleep apnea, hypothyroidism, bipolar, schizoaffective, atrial fibrillation, kidney disease, HCAP, history of MRSA bacteremia requiring a Port-A-Cath removal. PAST SURGICAL HISTORY: Significant for gastric bypass and a Port-A-Cath removal and patient has a new Port-A-Cath which is 7-month-old. ALLERGIES: PATIENT IS ALLERGIC TO IODINE CONTRAST IV, AND ORAL CONTRAST IODINE AND MEPERIDINE. MEDICATIONS: At home include the patient to be on medications of Synthroid, glucagon, Lovenox, Colace, Cymbalta, atorvastatin and Eliquis. PHYSICAL EXAMINATION GENERAL: Patient is in bed, no acute distress; however, appears sick. She is awake and alert, answering questions appropriately. VITAL SIGNS: Temperature of 100.3, heart rate of 117, respiratory rate of 20, and blood pressure is 104/70. Patient is saturating at 92% on room air. HEENT: Unremarkable. NECK: Supple. LUNGS: Have decreased breath sounds. HEART: Normal S1 and S2. ABDOMEN: Soft, nontender. No rebound, no guarding. No masses. LABORATORY DATA: Reveals a white count of 21,500, hemoglobin of 12, platelets of 285. Patient has a 92% lymphocytosis, granulocytosis. Chemistries reveals a BUN of 14, creatinine of 1.0. The BNP . Urinalysis is 2 to 5 wbc's, moderate bacteria, large blood. Patient's influenza is negative. Microbiology is pending. Chest x-ray shows questionable opacity, possible atelectasis versus infiltrate. ASSESSMENT AND PLAN: This is a 52-year-old female with rheumatoid arthritis, transient ischemic attack, obstructive sleep apnea, history of methicillin-resistant Staphylococcus aureus bacteremia, hypothyroidism, bipolar, schizoaffective, atrial fibrillation, kidney disease, healthcare-associated pneumonia, presenting with fever, cough, shortness of breath, tachycardia and leukocytosis of 25,000, and questionable infiltrates in the x-rays. Severe sepsis with healthcare-associated pneumonia, must rule out bacteremia secondary to Port-A-Cath, and we will treat the patient with vancomycin, meropenem, doxycycline, pending blood cultures, urine cultures, procalcitonin and sputum cultures, and vancomycin trough level will be ordered. I will make further recommendation upon availability of initial results. Alexander Bustamante MD
[2017-09-11] MEDS: Vancomycin 1gm in NS 250ml 1 GM/250 ML BAG IVPB SCH ×2 (03:53→16:25)
[2017-09-11] MEDS: Levothyroxine 175 MCG TAB PO SCH (06:24)
[2017-09-11] MEDS: Meropenem IV 1 gm in NS 50 ML IVPB SCH ×3 (06:24→22:15)
[2017-09-11 07:13] LABS: BASO # 0.03 K/mm3 (0.0-2.0); BASO % 0.3 % (0.0-3.0); EOS # 0.2 (0.0-0.7); EOS % 1.7 % (1.5-5.0); GRAN # 8.13 (1.4-6.5); GRAN % 70.6 % (50.0-68.0); HEMOGLOBIN 10.2 g/dL (12.0-16.0); LYMPH # 2.6 (1.2-3.4); LYMPH % 22.4 % (22.0-35.0); MEAN CORPUSCULAR HEMOGLOBIN 29.6 pg (25.0-35.0); MEAN CORPUSCULAR HGB CONC 31.9 g/dl (31.0-37.0); MEAN PLATELET VOLUME 9.7 fl (7.0-11.0); MONO # 0.6 (0.1-0.6); RBC 3.45 10^6/uL (3.5-6.1); RED CELL DISTRIBUTION WIDTH 15.3 % (11.5-14.5); WHITE BLOOD COUNT 11.5 10^3/ul (4.5-11.0)
[2017-09-11 07:20] LABS: MEAN CELL VOLUME 92.8 fl (80.0-105.0)
[2017-09-11 07:21] LABS: ALBUMIN 3.1 g/dL (3.0-4.8); ALT/SGPT 21 U/L (7-56); AST/SGOT 18 U/L (14-36); BILIRUBIN,DIRECT 0.3 mg/dL (0.0-0.4); BLOOD UREA NITROGEN 17 mg/dL (7-21); CALCIUM 8.8 mg/dL (8.4-10.5); GFR AFRICAN-AMERICAN > 60; GFR NON-AFRICAN AMERICAN > 60; HDL CHOLESTEROL 71 mg/dL (29-60)
[2017-09-11 07:31] LABS: LDL CHOLESTEROL 71 mg/dL (0-129)
[2017-09-11] MEDS: Sucralfate 1 gm/10 ml Oral Susp UD PO SCH ×2 (10:11→17:22)
[2017-09-11] MEDS: Pantoprazole 40 mg EC Tab PO SCH (10:12)
--- NOTE | 2017-09-11 10:50 | CARD ---
APPROVED REPORT EKG Measurement Heart [id number] <Conclusion> Sinus tachycardia Nonspecific T wave abnormality PRWP due to lead positioning NSSTW changes Prolonged QTc
--- NOTE | 2017-09-11 11:03 | CP.PCM.CON ---
<Eduardo Self - Last Filed: 09/11/17 10:58> History of Present Illness - History of Present Illness History of Present Illness: Gastroenterology Consult For Dr. Sanchez Request for GI consult for GI Bleed This is a 52-year-old female with PMH of Afib, TIA on Eliquis, iron deficiency anemia, gastric bypass, stroke. EGD/COLON was done last month. She was admitted for pneumonia and was found to have a 2 unit decrease in her HGB. PT currently denies any abdominal pain, hematemesis, emesis, GI durbances or GI bleed. She currently denies chest pain however endorses chills and shortness of breath. 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 Gastric biopsies negative for H. pylori and intestinal metaplasia. On colonoscopy found to have internal hemorrhoids, terminal ileum was normal and biopsies for microscopic colitis was negative. The terminal ileum biopsy was negative for active inflammation. Family history mother CHF Social history: Denies tobacco use, EtOH or substance abuse Allergies: Iodine needed contrast media oral and IV, meperidine Medications: Reviewed as per MAR ROS: Systems reviewed with positive finding see HPI. Review of Systems - Review of Systems All systems: reviewed and no additional remarkable complaints except - Constitutional Constitutional: Chills, Weakness - Respiratory Respiratory: Chest Congestion - Gastrointestinal Gastrointestinal: absent: Abdominal Pain, Belching, Bloating, Coffee Ground Emesis, Cramping, Diarrhea, Dysphagia, Heartburn, Hematemesis, Hematochezia, Melena, Nausea, Vomiting Past Patient History - Infectious Disease Hx of Infectious Diseases: None - Tetanus Immunizations Tetanus Immunization: Unknown - Past Social History Smoking Status: Never Smoked - CARDIAC Hx Hypertension: Yes - PULMONARY Hx Asthma: Yes Hx Pneumonia: Yes - NEUROLOGICAL HX Cerebrovascular Accident: Yes - HEENT Hx HEENT Problems: Yes (eyeglasses) - RENAL Hx Chronic Kidney Disease: Yes Hx Kidney Stones: Yes - ENDOCRINE/METABOLIC Hx Hypothyroidism: Yes - HEMATOLOGICAL/ONCOLOGICAL Hx Anemia: Yes - INTEGUMENTARY Other/Comment: mid chest steri strips intact loop recorded implanted, multiple round brown spots ble - MUSCULOSKELETAL/RHEUMATOLOGICAL Hx Falls: No Hx Osteoporosis: Yes - GASTROINTESTINAL Hx Gastrointestinal Disorders: Yes (gi bleed, obese) Hx Gastroesophageal Reflux: Yes - GENITOURINARY/GYNECOLOGICAL Hx Genitourinary Disorders: No - PSYCHIATRIC Hx Anxiety: Yes Hx Bipolar Disorder: Yes Hx Depression: Yes Hx Schizophrenia: Yes - SURGICAL HISTORY Hx Gastric Bypass Surgery: Yes (07/26/1999 235 lb weight loss) Other/Comment: R chest port for iron infusions and hydration. - ANESTHESIA Hx Anesthesia Reactions: No Hx Malignant Hyperthermia: No Meds Home Medications: Home Medication List Medication Instructions Recorded Confirmed Type Amoxicillin/Clavulanate [Augmentin 1 tab PO BID #8 tab 09/14/17 Rx 875 MG-125 MG] Doxycycline Hyclate 100 mg PO BID #8 capsule 09/14/17 Rx Levothyroxine [Levoxyl] 0.125 mg PO ACB #30 tab 09/14/17 Rx Allergies/Adverse Reactions: Allergies Allergy/AdvReac Type Severity Reaction Status Date / Time Iodinated Contrast- Oral and Allergy RASH Verified 08/17/17 18:34 IV Dye [Iodinated Contrast Media - IV Dye] iodine Allergy RASH Verified 08/17/17 18:34 meperidine Allergy RASH Verified 09/10/17 10:16 - Medications Medications: Current Medications Apixaban (Eliquis) 5 mg PO BID KEITH PRN Reason: Protocol Last Admin: 09/11/17 10:11 Dose: 5 mg Aripiprazole (Abilify) 30 mg PO HS KEITH PRN Reason: Protocol Last Admin: 09/10/17 21:41 Dose: 30 mg Atorvastatin Calcium (Lipitor) 10 mg PO DIN KEITH Last Admin: 09/10/17 18:13 Dose: 10 mg Clonazepam (Klonopin) 0.5 mg PO TID PRN; Protocol PRN Reason: Agitation Last Admin: 09/10/17 21:42 Dose: 0.5 mg Docusate Sodium (Colace) 100 mg PO BID KEITH Last Admin: 09/11/17 10:11 Dose: 100 mg Doxycycline Hyclate (Doryx) 100 mg PO Q12 KEITH PRN Reason: Protocol Stop: 09/19/17 22:01 Last Admin: 09/11/17 10:11 Dose: 100 mg Duloxetine HCl (Cymbalta) 60 mg PO DAILY [facility] Last Admin: 09/11/17 10:11 Dose: 60 mg Meropenem (Merrem Iv 1 Gm Premix) 50 mls @ 100 mls/hr IVPB Q8 [facility] PRN Reason: Protocol Stop: 09/19/17 22:01 Last Admin: 09/11/17 06:24 Dose: 100 mls/hr Vancomycin HCl (Vancomycin 1gm) 1 gm in 250 mls @ 167 mls/hr IVPB Q12H KEITH PRN Reason: Protocol Stop: 09/19/17 16:01 Last Admin: 09/11/17 03:53 Dose: 167 mls/hr Sodium Chloride (Sodium Chloride 0.9%) 1,000 mls @ 80 mls/hr IV .[id number] [facility] Last Admin: 09/10/17 18:14 Dose: 80 mls/hr Levothyroxine Sodium (Synthroid) 175 mcg PO 0600 [facility] Last Admin: 09/11/17 06:24 Dose: 175 mcg Pantoprazole Sodium (Protonix Ec Tab) 40 mg PO DAILY [facility] Last Admin: 09/11/17 10:12 Dose: 40 mg Pregabalin (Lyrica) 50 mg PO DAILY [facility] Last Admin: 09/11/17 10:12 Dose: 50 mg Sucralfate (Carafate Oral Susp) 1 gm PO BID [facility] Last Admin: 09/11/17 10:11 Dose: 1 gm Zolpidem Tartrate (Ambien) 5 mg PO HS PRN; Protocol PRN Reason: Insomnia Last Admin: 09/10/17 21:47 Dose: 5 mg Physical Exam - Constitutional Appears: Non-toxic, No Acute Distress - Head Exam Head Exam: ATRAUMATIC, NORMOCEPHALIC - Eye Exam Eye Exam: EOMI, Normal appearance - ENT Exam ENT Exam: Mucous Membranes Moist - Respiratory Exam Respiratory Exam: NORMAL BREATHING PATTERN - Cardiovascular Exam Cardiovascular Exam: +S1, +S2 - GI/Abdominal Exam GI & Abdominal Exam: Soft. absent: Normal Bowel Sounds, Pulsatile Mass, Rebound , Rigid - Neurological Exam Neurological exam: Alert, Oriented x3 - Psychiatric Exam Psychiatric exam: Normal Affect, Normal Mood - Skin Skin Exam: Dry, Intact Results - Vital Signs Recent Vital Signs: Last Vital Signs Temp 97.9 F 03/19/18 08:31 Pulse 75 09/11/17 08:31 Resp 20 09/11/17 08:31 BP 111/87 09/11/17 08:31 Pulse Ox 98 09/11/17 08:31 - Labs Result Diagrams: 09/11/17 06:20 09/11/17 06:20 Labs: Laboratory Results - last 24 hr 09/10/17 09/10/17 09/11/17 14:00 21:34 06:20 WBC 11.5 H D RBC 3.45 L Hgb 10.2 L Hct 32.0 L MCV 92.8 D MCH 29.6 MCHC 31.9 RDW 15.3 H Plt Count 233 MPV 9.7 Gran % 70.6 H Lymph % (Auto) 22.4 Riley % (Auto) 5.0 Eos % (Auto) 1.7 Baso % (Auto) 0.3 Gran # 8.13 H Lymph # (Auto) 2.6 Riley # (Auto) 0.6 Eos # (Auto) 0.2 Baso # (Auto) 0.03 Sodium Potassium Chloride Carbon Dioxide Anion Gap BUN Creatinine Est GFR ( Amer) Est GFR (Non-Af Amer) POC Glucose (mg/dL) 77 Random Glucose Calcium Total Bilirubin Direct Bilirubin AST ALT Alkaline Phosphatase Total Protein Albumin Globulin Albumin/Globulin Ratio Triglycerides Cholesterol LDL Cholesterol Direct HDL Cholesterol Procalcitonin 0.09 L 09/11/17 09/11/17 06:20 07:29 WBC RBC Hgb Hct MCV MCH MCHC RDW Plt Count MPV Gran % Lymph % (Auto) Riley % (Auto) Eos % (Auto) Baso % (Auto) Gran # Lymph # (Auto) Riley # (Auto) Eos # (Auto) Baso # (Auto) Sodium 142 Potassium 3.6 Chloride 109 H Carbon Dioxide 26 Anion Gap 10 BUN 17 Creatinine 0.9 Est GFR ( Amer) > 60 Est GFR (Non-Af Amer) > 60 POC Glucose (mg/dL) 72 Random Glucose 79 Calcium 8.8 Total Bilirubin 0.4 Direct Bilirubin 0.3 AST 18 ALT 21 Alkaline Phosphatase 84 Total Protein 6.0 Albumin 3.1 Globulin 3.0 Albumin/Globulin Ratio 1.0 L Triglycerides 66 Cholesterol 174 LDL Cholesterol Direct 71 HDL Cholesterol 71 H Procalcitonin Assessment & Plan - Assessment and Plan (Free Text) Assessment: 52F with pneumonia Drop in HGB likely secondary to fluid hydration. Pt denies any symptoms consistent with acute GI Blood losses of 2units of HGB. D/W Dr. Daniel Self PGY2 <Radhika Sanchez V - Last Filed: 09/14/17 23:32> Meds - Medications Medications: Current Medications Apixaban (Eliquis) 5 mg PO BID KEITH PRN Reason: Protocol Last Admin: 09/11/17 17:23 Dose: 5 mg Arformoterol Tartrate (Brovana) 15 mcg IH [id number] KEITH Aripiprazole (Abilify) 30 mg PO HS KEITH PRN Reason: Protocol Last Admin: 09/10/17 21:41 Dose: 30 mg Atorvastatin Calcium (Lipitor) 10 mg PO DIN [facility] Last Admin: 09/11/17 17:25 Dose: 10 mg Budesonide (Pulmicort Respules) 0.5 mg IH [id number] KE[facility] Clonazepam (Klonopin) 0.5 mg PO TID PRN; Protocol PRN Reason: Agitation Last Admin: 09/10/17 21:42 Dose: 0.5 mg Docusate Sodium (Colace) 100 mg PO BID [facility] Last Admin: 09/11/17 17:22 Dose: 100 mg Doxycycline Hyclate (Doryx) 100 mg PO Q12 [facility] PRN Reason: Protocol Stop: 09/19/17 22:01 Last Admin: 09/11/17 10:11 Dose: 100 mg Duloxetine HCl (Cymbalta) 60 mg PO DAILY [facility] Last Admin: 09/11/17 10:11 Dose: 60 mg Meropenem (Merrem Iv 1 Gm Premix) 50 mls @ 100 mls/hr IVPB Q8 [facility] PRN Reason: Protocol Stop: 09/19/17 22:01 Last Admin: 09/11/17 13:11 Dose: 100 mls/hr Vancomycin HCl (Vancomycin 1gm) 1 gm in 250 mls @ 167 mls/hr IVPB Q12H [facility] PRN Reason: Protocol Stop: 09/19/17 16:01 Last Admin: 09/11/17 16:25 Dose: 167 mls/hr Sodium Chloride (Sodium Chloride 0.9%) 1,000 mls @ 80 mls/hr IV .[id number] [facility] Last Admin: 09/10/17 18:14 Dose: 80 mls/hr Levothyroxine Sodium (Synthroid) 175 mcg PO 0600 [facility] Last Admin: 09/11/17 06:24 Dose: 175 mcg Metoprolol Tartrate (Lopressor) 25 mg PO BID [facility] Last Admin: 09/11/17 17:23 Dose: 25 mg Pantoprazole Sodium (Protonix Ec Tab) 40 mg PO DAILY [facility] Last Admin: 09/11/17 10:12 Dose: 40 mg Pregabalin (Lyrica) 50 mg PO DAILY [facility] Last Admin: 09/11/17 10:12 Dose: 50 mg Sucralfate (Carafate Oral Susp) 1 gm PO BID [facility] Last Admin: 09/11/17 17:22 Dose: 1 gm Zolpidem Tartrate (Ambien) 5 mg PO HS PRN; Protocol PRN Reason: Insomnia Last Admin: 09/10/17 21:47 Dose: 5 mg Results - Vital Signs Recent Vital Signs: Last Vital Signs Temp 97.9 F 09/11/17 08:31 Pulse 76 09/11/17 20:43 Resp 18 09/11/17 20:43 BP 122/78 09/11/17 20:43 Pulse Ox 98 09/11/17 08:31 - Labs Result Diagrams: 09/14/17 05:55 09/14/17 05:55 Labs: Laboratory Results - last 24 hr 09/10/17 09/11/17 09/11/17 21:34 06:20 06:20 WBC 11.5 H D RBC 3.45 L Hgb 10.2 L Hct 32.0 L MCV 92.8 D MCH 29.6 MCHC 31.9 RDW 15.3 H Plt Count 233 MPV 9.7 Gran % 70.6 H Lymph % (Auto) 22.4 Riley % (Auto) 5.0 Eos % (Auto) 1.7 Baso % (Auto) 0.3 Gran # 8.13 H Lymph # (Auto) 2.6 Riley # (Auto) 0.6 Eos # (Auto) 0.2 Baso # (Auto) 0.03 Sodium 142 Potassium 3.6 Chloride 109 H Carbon Dioxide 26 Anion Gap 10 BUN 17 Creatinine 0.9 Est GFR ( Amer) > 60 Est GFR (Non-Af Amer) > 60 POC Glucose (mg/dL) 77 Random Glucose 79 Calcium 8.8 Total Bilirubin 0.4 Direct Bilirubin 0.3 AST 18 ALT 21 Alkaline Phosphatase 84 Total Protein 6.0 Albumin 3.1 Globulin 3.0 Albumin/Globulin Ratio 1.0 L Triglycerides 66 Cholesterol 174 LDL Cholesterol Direct 71 HDL Cholesterol 71 H 09/11/17 09/11/17 09/11/17 07:29 11:56 18:03 WBC RBC Hgb Hct MCV MCH MCHC RDW Plt Count MPV Gran % Lymph % (Auto) Riley % (Auto) Eos % (Auto) Baso % (Auto) Gran # Lymph # (Auto) Riley # (Auto) Eos # (Auto) Baso # (Auto) Sodium Potassium Chloride Carbon Dioxide Anion Gap BUN Creatinine Est GFR ( Amer) Est GFR (Non-Af Amer) POC Glucose (mg/dL) 72 90 88 Random Glucose Calcium Total Bilirubin Direct Bilirubin AST ALT Alkaline Phosphatase Total Protein Albumin Globulin Albumin/Globulin Ratio Triglycerides Cholesterol LDL Cholesterol Direct HDL Cholesterol Attending/Attestation - Attestation I have personally seen and examined this patient.: Yes I have fully participated in the care of the patient.: Yes I have reviewed all pertinent clinical information: Yes Notes (Text): This is an addendum to GI consult report dictated by the [employer] Operator.The patient was seen and examined earlier. Medical records, lab studies, imagings were reviewed. Last 24 hours events reviewed. Agreed with the above treatment plan as outlined in [employer] Operator 's notes the with the addition of the following Denies any abdominal pain no melena or bright red blood per rectum On examination abdomen soft no tenderness Dropping hemoglobin probably dilutional We will follow her hemoglobin and hematocrit MRE to be scheduled as an outpatient Discussed with 09/11/17 23:49 09/14/17 23:30
--- NOTE | 2017-09-11 12:29 | CP.PCM.PN ---
Subjective - Date & Time of Evaluation Date of Evaluation: 09/11/17 Time of Evaluation: 09:10 - Subjective Subjective: Heme-onc Progress Note, Caden Greene DO, PGY-2 IM This is a 52 yo F with PMH of atrial fibrillation, SHERRY, gastric bypass surgery, and hypercoagulable state on eliquis who [place] [facility] [place], 1x emesis, generalized weakness and borderline fever (Tmax at home reported as 100.2F). Today, patient seen ambulating from bathroom to bed, using IV pole for assist. Reports general improvement but not resolution of her symptoms; still complains primarily of generalized weakness/malaise. Denies further emesis, reports normal BM and urination. Denies fever/chills. No acute events reported overnight. On isolation precautions for possible flu, however testing was negative so will likely be d/c'ed soon. Objective - Vital Signs/Intake and Output Vital Signs (last 24 hours): Temp Pulse Resp BP Pulse Ox 97.9 F 75 20 111/87 98 09/11/17 08:31 09/11/17 08:31 09/11/17 08:31 09/11/17 08:31 09/11/17 08:31 Intake and Output: 09/11/17 09/11/17 06:59 18:59 Intake Total 1770 Output Total 0 Balance 1770 - Medications Medications: Current Medications Apixaban (Eliquis) 5 mg PO BID KEITH PRN Reason: Protocol Last Admin: 09/11/17 10:11 Dose: 5 mg Aripiprazole (Abilify) 30 mg PO HS KEITH PRN Reason: Protocol Last Admin: 09/10/17 21:41 Dose: 30 mg Atorvastatin Calcium (Lipitor) 10 mg PO DIN [facility] Last Admin: 09/10/17 18:13 Dose: 10 mg Clonazepam (Klonopin) 0.5 mg PO TID PRN; Protocol PRN Reason: Agitation Last Admin: 09/10/17 21:42 Dose: 0.5 mg Docusate Sodium (Colace) 100 mg PO BID [facility] Last Admin: 09/11/17 10:11 Dose: 100 mg Doxycycline Hyclate (Doryx) 100 mg PO Q12 [facility] PRN Reason: Protocol Stop: 09/19/17 22:01 Last Admin: 09/11/17 10:11 Dose: 100 mg Duloxetine HCl (Cymbalta) 60 mg PO DAILY [facility] Last Admin: 09/11/17 10:11 Dose: 60 mg Meropenem (Merrem Iv 1 Gm Premix) 50 mls @ 100 mls/hr IVPB Q8 [facility] PRN Reason: Protocol Stop: 09/19/17 22:01 Last Admin: 09/11/17 06:24 Dose: 100 mls/hr Vancomycin HCl (Vancomycin 1gm) 1 gm in 250 mls @ 167 mls/hr IVPB Q12H [facility] PRN Reason: Protocol Stop: 09/19/17 16:01 Last Admin: 09/11/17 03:53 Dose: 167 mls/hr Sodium Chloride (Sodium Chloride 0.9%) 1,000 mls @ 80 mls/hr IV .[id number] [facility] Last Admin: 09/10/17 18:14 Dose: 80 mls/hr Levothyroxine Sodium (Synthroid) 175 mcg PO 0600 [facility] Last Admin: 09/11/17 06:24 Dose: 175 mcg Pantoprazole Sodium (Protonix Ec Tab) 40 mg PO DAILY [facility] Last Admin: 09/11/17 10:12 Dose: 40 mg Pregabalin (Lyrica) 50 mg PO DAILY [facility] Last Admin: 09/11/17 10:12 Dose: 50 mg Sucralfate (Carafate Oral Susp) 1 gm PO BID [facility] Last Admin: 09/11/17 10:11 Dose: 1 gm Zolpidem Tartrate (Ambien) 5 mg PO HS PRN; Protocol PRN Reason: Insomnia Last Admin: 09/10/17 21:47 Dose: 5 mg - Labs Labs: 09/11/17 06:20 09/11/17 06:20 - Constitutional Appears: Non-toxic, No Acute Distress - Head Exam Head Exam: ATRAUMATIC, NORMOCEPHALIC Additional comments: mild left-sided facial droop (Hx CVA, present on prior exams), but otherwise full movement, no slurred speech or drooling from left side of mouth - Eye Exam Eye Exam: EOMI, Normal appearance. absent: Conjunctival injection, Scleral icterus Pupil Exam: absent: Irregular, Unequal - ENT Exam ENT Exam: Mucous Membranes Moist. absent: Mucous Membranes Dry - Neck Exam Neck Exam: Full ROM, Normal Inspection - Respiratory Exam Respiratory Exam: Clear to Ausculation Bilateral, NORMAL BREATHING PATTERN. absent: Rales, Rhonchi, Wheezes - Cardiovascular Exam Cardiovascular Exam: Irregular Rhythm, +S1, +S2. absent: Bradycardia, Tachycardia, REGULAR RHYTHM, JVD, RRR, +S4, Murmur - GI/Abdominal Exam GI & Abdominal Exam: Soft, Normal Bowel Sounds. absent: Distended, Firm, Rigid , Tenderness - Extremities Exam Extremities Exam: Full ROM (ambulating in room with IV pole, appears to have normal but cautious/slow gait), Normal Inspection. absent: Calf Tenderness, Pedal Edema, Tenderness - Neurological Exam Neurological Exam: Alert, Awake, Oriented x3 Additional comments: awake and alert, following all commands, moving all extremities spontaneously mild left-sided weakness as compared to right (left extremities 4+/5 strength, right extremities 5/5 strength), mild left facial droop but otherwise full movement of muscles, no slurred speech or drooling, controlling airway and protecting gait observed, slow and cautious but intact, no left leg dragging or gross deficit in gait appreciated - Psychiatric Exam Psychiatric exam: Normal Affect, Normal Mood - Skin Skin Exam: Dry, Intact, Normal Color, Warm Assessment and Plan - Assessment and Plan (Free Text) Assessment: This is a 52 yo F with PMH of atrial fibrillation, SHERRY, gastric bypass surgery, and hypercoagulable state on eliquis who presented [place] [facility] with nausea, 1x emesis, generalized weakness and borderline fever (Tmax at home reported as 100.2F). Plan: Emesis and nausea Left sided deficits - chronic, 2/2 prior CVA SHERRY Hypercoagulable state on Eliquis Obesity Hypothyroidism Bipolar disorder Hx gastric bypass Elevated WBCs - improved -ID consulted, recs appreciated, on Vanco/Merrem for possible severe sepsis with HCAP (last admitted to hospital < 90 days prior); procal negative and flu negative, WBCs trending down (11.5 today), afebrile, cultures pending -Cardio consulted, appreciate all recs -CXR in ED notable for bi-basilar opacities, likely atelectasis -GI consulted, recs appreciated -Pulm consulted, appreciate all recs -Continue home eliquis -Continue psych medications -Continue to monitor clinical status, daily labs Case reviewed and discussed at length with attending, Dr. Malave
--- NOTE | 2017-09-11 14:57 | CP.PCM.PN ---
Subjective - Date & Time of Evaluation Date of Evaluation: 09/11/17 Time of Evaluation: 12:10 - Subjective Subjective: Comfortable on a chair, occasional abdominal pain, no vomiting, no fevers. Objective - Vital Signs/Intake and Output Vital Signs (last 24 hours): Temp Pulse Resp BP Pulse Ox 97.9 F 75 20 111/87 98 09/11/17 08:31 09/11/17 08:31 09/11/17 08:31 09/11/17 08:31 09/11/17 08:31 Intake and Output: 09/11/17 09/11/17 06:59 18:59 Intake Total 1770 600 Output Total 0 800 Balance 1770 -200 - Medications Medications: Current Medications Apixaban (Eliquis) 5 mg PO BID [facility] PRN Reason: Protocol Last Admin: 09/11/17 10:11 Dose: 5 mg Aripiprazole (Abilify) 30 mg PO HS KEITH PRN Reason: Protocol Last Admin: 09/10/17 21:41 Dose: 30 mg Atorvastatin Calcium (Lipitor) 10 mg PO DIN [facility] Last Admin: 09/10/17 18:13 Dose: 10 mg Clonazepam (Klonopin) 0.5 mg PO TID PRN; Protocol PRN Reason: Agitation Last Admin: 09/10/17 21:42 Dose: 0.5 mg Docusate Sodium (Colace) 100 mg PO BID [facility] Last Admin: 09/11/17 10:11 Dose: 100 mg Doxycycline Hyclate (Doryx) 100 mg PO Q12 KEITH PRN Reason: Protocol Stop: 09/19/17 22:01 Last Admin: 09/11/17 10:11 Dose: 100 mg Duloxetine HCl (Cymbalta) 60 mg PO DAILY [facility] Last Admin: 09/11/17 10:11 Dose: 60 mg Meropenem (Merrem Iv 1 Gm Premix) 50 mls @ 100 mls/hr IVPB Q8 [facility] PRN Reason: Protocol Stop: 09/19/17 22:01 Last Admin: 09/11/17 13:11 Dose: 100 mls/hr Vancomycin HCl (Vancomycin 1gm) 1 gm in 250 mls @ 167 mls/hr IVPB Q12H [facility] PRN Reason: Protocol Stop: 09/19/17 16:01 Last Admin: 09/11/17 03:53 Dose: 167 mls/hr Sodium Chloride (Sodium Chloride 0.9%) 1,000 mls @ 80 mls/hr IV .[id number] [facility] Last Admin: 09/10/17 18:14 Dose: 80 mls/hr Levothyroxine Sodium (Synthroid) 175 mcg PO 0600 [facility] Last Admin: 09/11/17 06:24 Dose: 175 mcg Metoprolol Tartrate (Lopressor) 25 mg PO BID [facility] Pantoprazole Sodium (Protonix Ec Tab) 40 mg PO DAILY [facility] Last Admin: 09/11/17 10:12 Dose: 40 mg Pregabalin (Lyrica) 50 mg PO DAILY [facility] Last Admin: 09/11/17 10:12 Dose: 50 mg Sucralfate (Carafate Oral Susp) 1 gm PO BID [facility] Last Admin: 09/11/17 10:11 Dose: 1 gm Zolpidem Tartrate (Ambien) 5 mg PO HS PRN; Protocol PRN Reason: Insomnia Last Admin: 09/10/17 21:47 Dose: 5 mg - Labs Labs: 09/11/17 06:20 09/11/17 06:20 - Constitutional Appears: Chronically Ill - Head Exam Head Exam: NORMAL INSPECTION - ENT Exam ENT Exam: Mucous Membranes Moist - Neck Exam Neck Exam: absent: Meningismus - Respiratory Exam Respiratory Exam: Decreased Breath Sounds - Cardiovascular Exam Cardiovascular Exam: +S1 - GI/Abdominal Exam GI & Abdominal Exam: Soft. absent: Tenderness Assessment and Plan - Assessment and Plan (Free Text) Plan: Assessment R/O severe sepsis from HCAP history of sepsis due to left sided HCAP, slowly improving history of sepsis due to MRSA bacteremia, probably from port-a-cath S/P removal history of HCAP rheumatoid arthritis history of transient ischemic attack obstructive sleep apnea Morbid obesity with BMI 40 hypothyroidism bipolar disorder shcizoaffective disorder, S/P gastric bypass surgery Plan continue Doxycycline, Vancomycin and Merrem day 2 pending final culture results will continue to monitor clinically
[2017-09-11] MEDS: Sodium Chloride 0.9% 1,000 ML IV SCH (22:23)
--- NOTE | 2017-09-11 23:07 | CON ---
DATE: 09/11/2017 REASON FOR CONSULTATION: Followup cardiac evaluation, history of paroxysmal atrial fibrillation, admitted with fever, sepsis and tachycardia. BRIEF CLINICAL HISTORY: This is a 52-year-old female with a past medical history significant for anemia, history of paroxysmal atrial fibrillation, transfusion-dependent anemia, gastric bypass, morbid obesity, history of pituitary intervention 20 years ago, came with complaint of feeling very weak, lethargic, fever, sepsis, history of paroxysmal atrial fibrillation, on anticoagulation. PAST MEDICAL HISTORY: Significant for TIA; bipolar disorder; schizophrenia; morbid obesity; status post gastric bypass; history of sleep apnea sleep disorder; hypothyroidism; rheumatoid arthritis; anemia, transfusion dependent; status post Port-A-Cath, history of pituitary intervention 20 years ago. PAST SURGICAL HISTORY: Significant for gastric bypass in 2001, history of pituitary intervention 20 years ago, history of Port-A-Cath removal and replaced again. SOCIAL HISTORY: Denies any history of alcohol abuse. PREVIOUS CARDIAC WORKUP: As follows; the patient had an echocardiography on 11/19/2015 with ejection fraction , trace aortic regurgitation, mild to moderate mitral regurgitation, and trace tricuspid regurgitation. The patient had a stress test done dated 08/18/2017 that is less than 4 weeks that shows essentially normal myocardial perfusion study, fixed defect basal inferior, most likely secondary to inferolateral breast attenuation, fixed defect, ejection fraction 70%. REVIEW OF SYSTEMS: As per HPI. PHYSICAL EXAMINATION: As follows: VITAL SIGNS: Temperature afebrile, heart rate 75, blood pressure 125/95. HEENT: PERRLA. Extraocular muscles intact. NECK: Supple. No carotid bruit. No thyromegaly. CHEST: Clear to auscultation. HEART: S1 and S2 regular. ABDOMEN: Soft. EXTREMITIES: Clubbing and cyanosis negative. LABORATORY DATA: Blood workup as follows; WBC 11.5, hemoglobin 10.2, hematocrit 32.0, and platelet count 233. Chemistry shows sodium 140, potassium 3.6, chloride 100, carbon dioxide 26, anion gap of 15, BUN 17, creatinine 0.7. Total protein 6. Albumin . Albumin globulin ratio 1. Total cholesterol 174, LDL 71, HDL 71, triglyceride 66. Troponin 0.01 on admission. IMPRESSION: No evidence of acute myocardial infarction, admitted with sepsis; fever; altered mental status; history of paroxysmal atrial fibrillation; history of anemia, transfusion dependent; history of gastric bypass; history of obesity; history of pituitary intervention; negative noninvasive workup; in 08/18/2017 negative stress test. Previous echo on 11/18/2016, ejection fraction 55% to 60 %, trace aortic regurgitation, trace to mild mitral regurgitation, and trace to mild tricuspid regurgitation, right ventricular systolic pressure 26. RECOMMENDATION: Followup blood culture, no growth. Continue low-dose beta-luisa, continue Eliquis. The patient is on Eliquis. We will follow with you. Thank you Dr. Ronal Khan for providing me the opportunity in taking care of the patient, Julieth Szymanski. The patient has tachycardia. We will follow with you. The patient is still hypertensive. We will start low-dose beta-luisa. Gisselle Parker MD
[2017-09-12] MEDS: Vancomycin 1gm in NS 250ml 1 GM/250 ML BAG IVPB SCH ×2 (03:14→15:57)
--- NOTE | 2017-09-12 05:50 | CON ---
DATE: 09/11/2017 PULMONARY CONSULT REFERRING PHYSICIAN: Ronal Kahn MD. REASON FOR CONSULTATION: Chronic lung disease, may have sleep apnea syndrome, obesity. HISTORY OF PRESENT ILLNESS: This is a 52-year-old female who had been having fever, chills, shivering, body aches, mild headache, poor appetite; also has nausea and vomiting with some shortness of breath. Also has been having dysuria for a few days. Received bronchodilator, started on antibiotics. Septic workup is done. Today, she feels a little better. She is supposed to get a sleep study as outpatient, could not make it. There is no hemoptysis or emesis. No hematuria. No diarrhea reported. PAST MEDICAL HISTORY: Hypertension, history of pneumonia, history of CVA, renal insufficiency, hypothyroid, anemia, osteoarthritis, history of GI bleed in the past, history of GERD, bipolar disorder. FAMILY HISTORY: No significant cardiopulmonary disease reported. SOCIAL HISTORY: Never smoked. Denied any alcohol use. ALLERGIES: SHE IS ALLERGIC TO IV CONTRAST, IODINE, ALSO ALLERGIC TO MEPERIDINE. MEDICATIONS: She is on Abilify 30 mg at bedtime, Ambien 5 mg at bedtime p.r.n., Carafate 1 g twice a day, Colace 100 mg twice a day, Cymbalta 60 mg daily, doxycycline 100 mg twice a day, Eliquis 5 mg twice a day, Klonopin 0.5 mg three times a day p.r.n., Lipitor 10 mg daily, metoprolol tartrate 25 mg twice a day, Lyrica 50 mg daily, Merrem 1 g IV q. 8 hours, Protonix 40 mg daily, sodium chloride normal saline 80 mL per hour, Synthroid 175 mcg daily, vancomycin 1 g q. 12 hour. REVIEW OF SYSTEMS: Mild headache. No rhinitis. Has some cough, shortness of breath. No chest pain. No nausea. At present, no vomiting, no abdominal pain. Had dysuria. No leg pain or leg swelling. Admits to have snoring at nighttime, daytime sleepy and tired. PHYSICAL EXAMINATION: GENERAL: Lying in the bed, in no acute distress VITAL SIGNS: Temperature is 98, heart rate is 70, respiratory rate is 20, blood pressure is 111/87, pulse ox 98% on room air. HEENT: Moist mucous membrane. Crowded airway. Mallampati score 4. NECK: Short thick neck. LUNGS: Fair air flow with a few rhonchi, prolonged expiratory phase. HEART: S1 and S2. ABDOMEN: Soft and nontender. No organomegaly. EXTREMITIES: There is no edema. NEUROLOGICAL: Awake, alert. Follows simple commands. LABORATORY DATA: Shows hemoglobin 10.2, hematocrit 32.0, WBC 11.5, platelet is 233. VBG showed pH 7.46, pCO2 37, O2 174. Sodium 142, potassium 3.6, chloride 109, bicarbonate 26, BUN 17, creatinine 0.9, glucose is 88, calcium is 8.8, total bili 0.4, direct bili 0.3, AST 28, ALT 21, alk phos is 84. Albumin 3.1. Cholesterol is 174, procalcitonin 0.09. Urinalysis shows wbc's 2 to 5, rbc's too numerous to count. Influenza serology is negative. Urine culture, blood culture, there is no growth. Sputum culture, there is no growth. Chest x-ray done in ER shows bibasilar opacity, likely representing atelectasis. IMPRESSION AND PLAN: Chronic obstructive lung disease, atrial fibrillation, history of gastric bypass surgery in the remote past, sleep apnea syndrome, claustrophobic, schizophrenia, depression, rule out urinary tract infection, could be just acute bronchitis, could be viral. Patient seen by Infectious Disease and started on antibiotics. From a Pulmonary point of view, continue inhaled bronchodilator. Keep head at 45 degrees. Refusing to use continuous positive airway pressure/bilevel positive airway pressure. Willing to get sleep study upon discharge as outpatient with possible use of nasal pillow mask. Gastric prophylaxis, deep venous thrombosis prophylaxis. Fall precaution. Thank you and we will follow with you. Gisselle Sears MD
[2017-09-12] MEDS: Levothyroxine 175 MCG TAB PO SCH (05:56)
[2017-09-12] MEDS: Meropenem IV 1 gm in NS 50 ML IVPB SCH ×3 (05:56→21:11)
--- NOTE | 2017-09-12 06:15 | HP ---
HISTORY OF PRESENT ILLNESS: The patient is in the ER, being admitted to room 368. This is one of the several admissions for this 52-year-old female who came into the emergency room with a one-day history of feeling malaise, severe weakness, fatigue, maximum temperature of 100.2 with fevers, night sweats, chills, body aches, mild headache, poor appetite, one episode of nausea and vomiting. No chest pain. Mild shortness of breath. No palpitations. No abdominal pain, rashes or bowel changes. One to two days of dysuria with frequency. No hematuria. Complains of lightheadedness and dizziness. The patient was seen in the emergency room and then advised admission for further management based on the testing. PAST MEDICAL HISTORY: Significant for the fact that the patient has multiple comorbid medical issues. The patient has a history of chronic schizoaffective disorder, for which she is on medications including Cymbalta and Abilify and is very well controlled; history of gastric bypass surgery about 15 years ago done at [facility], and as a result of the sequelae of gastric bypass surgery, has had issues with blind loop syndrome, has a history of bacterial overgrowth syndrome, multiple episodes of nausea, vomiting on an intermittent basis up to several times a week, has had a recent endoscopy and colonoscopy and supposedly scheduled for a push enteroscopy, which has not yet been done. History of iron deficiency anemia. The patient has a history of CVA in the past, which probably was in the form of TIAs as she recovered from that, history of paroxysmal atrial fibrillation for which she is on anticoagulants, history of multiple episodes of syncope for which she had had a loop recorder inserted to monitor for the events. The patient has been also known to have had remote surgery on pituitary for possible adenoma several years ago. History of reactive hypoglycemia. The patient used to carry at one time glucagon injections with her, prescribed to her by Dr. Live, the storage receipt poster. REVIEW OF SYSTEMS: A 12-system review of systems was done, which were negative except for what is mentioned in the HPI. SOCIAL HISTORY: The patient is a nonsmoker, nondrinker, no history of any substance abuse. ALLERGIES: THE PATIENT HAS ALLERGIES TO IODINATED CONTRAST AND DYE, WHICH HAS BEEN VERIFIED. THE PATIENT HAS MEPERIDINE ALLERGIES. MEDICATIONS: The patient's medications at home consist of several of them and include Ambien, Lyrica, glucagon, Cymbalta, levothyroxine, pantoprazole, Abilify, Lovenox, Colace, and Eliquis. PHYSICAL EXAMINATION: GENERAL: Patient is awake, alert and oriented. VITAL SIGNS: Pulse is 110 per minute, respirations 18, blood pressure is 106/78, pulse ox is 95% on room air. The patient is afebrile. HEENT: Conjunctivae pale. Sclerae is anicteric. Pupils are equally reactive to light and accommodation. Examination of the oropharynx reveals the tongue to be coated. No oropharyngeal lesions are noted. No ulcerations are noted. No evidence of any fungal infection noted. NECK: Supple. There is no adenopathy. No jugular venous distention noted. LUNGS: Relatively clear to percussion and auscultation with no adventitious sounds heard. HEART: Reveals tachycardia. S1 and S2 are normal. No gallop or murmur is heard. ABDOMEN: Soft, nontender, protuberant. No rebound, rigidity or guarding is noted. There is no evidence of White's sign or McBurney point tenderness. No significant masses are palpable. BACK: Reveals normal inspection without any deformities. No CVA tenderness. No midline tenderness. EXTREMITIES: Upper extremities are normal. The patient has normal range of motion with normal pulses palpable without any lymphedema. Examination of lower extremities reveals normal range of motion. No clubbing or edema is noted. Pulses are well felt. NEUROLOGIC: Reveals higher functions to be normal. No focal deficits are noted. SKIN: Skin turgor is normal. No skin lesions are noted. No ulcerations are noted. PSYCHIATRIC: The patient is awake, alert, oriented and cooperative. LABORATORY DATA: Labs upon admission were reviewed. White count is 21,000, hemoglobin of 12, hematocrit 36, platelet count 285,000. Sodium is 144, K is 3.6, chloride is 108, CO2 is 26, BUN is 14, creatinine is 1, blood sugar is 95. ASSESSMENT NOTES AND PLAN: The patient has fever, chills and weakness; rule out evolving sepsis. Discussed with the ER physician in great detail. PLAN: The patient is going to be having blood cultures done both peripherally and through the port. The patient is having a rapid flu testing done as well. In the meantime, the patient is going to be started on IV fluids. We are going to cover with vancomycin and Maxipime. ID consult has been obtained. Procalcitonin has been obtained. Chest x-ray shows basilar atelectasis, cephalization of pulmonary vasculature and make sure there is no underlying lung infection as well. The patient's home medicines have been reviewed. We will review any of the other medicines that she was taking at home and follow through with them as well. Speak to the family including her to get more detailed information at this time. We will obtain consult for Dr. Butler who is the medical doctor. The patient's medications include Abilify 30 mg at bedtime, Ambien 5 mg p.o. at bedtime, Brovana 15 mcg inhaled q. 12 hours, Carafate 1 g b.i.d., Colace 100 b.i.d., Cymbalta 60 daily, doxycycline 100 mg p.o. q. 12 hours, apixaban 5 mg p.o. b.i.d., Klonopin 0.5 mg p.o. t.i.d. p.r.n., Lipitor 10 mg p.o. at nighttime, metoprolol 25 mg b.i.d., Lyrica 50 mg daily. The patient is on Protonix 40 mg daily, budesonide 0.5 mg inhaled q. 12 hours, IV fluids at 80 mL an hour, Synthroid 175 mcg daily. The patient has already been started on antibiotics as well. Routine post-exam instructions have been given to the patient. Blood cultures have been ordered. Blood work for a.m. has been requested. The patient will be seen by ID, Pulmonary, and primary medical doctor. Betzy Malave MD
[2017-09-12 06:28] LABS: BASO # 0.03 K/mm3 (0.0-2.0); BASO % 0.4 % (0.0-3.0); EOS # 0.3 (0.0-0.7); EOS % 3.3 % (1.5-5.0); GRAN # 4.79 (1.4-6.5); GRAN % 60.9 % (50.0-68.0); HEMOGLOBIN 9.6 g/dL (12.0-16.0); LYMPH # 2.3 (1.2-3.4); LYMPH % 29.7 % (22.0-35.0); MEAN CORPUSCULAR HEMOGLOBIN 28.4 pg (25.0-35.0); MEAN CORPUSCULAR HGB CONC 30.9 g/dl (31.0-37.0); MEAN PLATELET VOLUME 9.7 fl (7.0-11.0); MONO # 0.5 (0.1-0.6); MONO % 5.7 % (1.0-6.0); RBC 3.38 10^6/uL (3.5-6.1); RED CELL DISTRIBUTION WIDTH 15.1 % (11.5-14.5); WHITE BLOOD COUNT 7.9 10^3/ul (4.5-11.0)
[2017-09-12 07:12] LABS: ALBUMIN 2.9 g/dL (3.0-4.8); ALT/SGPT 19 U/L (7-56); AST/SGOT 19 U/L (14-36); BLOOD UREA NITROGEN 11 mg/dL (7-21); CALCIUM 8.7 mg/dL (8.4-10.5); GFR AFRICAN-AMERICAN > 60; GFR NON-AFRICAN AMERICAN > 60
[2017-09-12] MEDS: Arformoterol 15 mcg/2 ml Inh Sol IH SCH ×2 (07:53→19:18)
[2017-09-12] MEDS: Budesonide 0.5 mg/2 ml Inhal Susp UD IH SCH ×2 (07:54→19:18)
[2017-09-12] MEDS ORDERED: Potassium Chloride 40 mEq/30 ml LIQ UD PO ONE (09:19)
[2017-09-12] MEDS: Sucralfate 1 gm/10 ml Oral Susp UD PO SCH ×2 (09:32→18:20)
[2017-09-12] MEDS: Pantoprazole 40 mg EC Tab PO SCH (09:33)
[2017-09-12] MEDS ORDERED: Potassium Chloride 20 mEq ER Tab PO ONE (10:45)
--- NOTE | 2017-09-12 12:03 | RAD ---
PROCEDURE: Cervical Spine Radiographs. HISTORY: Pain. COMPARISON: None. FINDINGS: BONES: Alignment maintained. No fracture. Dens Intact. DISC SPACES: Normal. SOFT TISSUES: Normal. No prevertebral soft tissue swelling. OTHER FINDINGS: None. IMPRESSION: Normal cervical spine radiographs
--- NOTE | 2017-09-12 13:04 | CP.PCM.PN ---
Subjective - Date & Time of Evaluation Date of Evaluation: 09/12/17 Time of Evaluation: 07:10 - Subjective Subjective: Heme-onc Progress Note, Caden Greene DO, PGY-2 IM This is a 52 yo F with PMH of atrial fibrillation, SHERRY, gastric bypass surgery, and hypercoagulable state on eliquis who presented to [facility] ER with nausea, 1x emesis, generalized weakness and borderline fever (Tmax at home reported as 100.2F). Patient seen at bedside today. Resting well, reports continued improvement in symptoms, denies any acute complaints at time of exam. No acute events reported overnight. Denies any further diarrhea, nausea, emesis, or stomach pain. Tolerating diet well. Concerned regarding her blood sugars, which she reports were low this AM, requiring nursing to give her orange juice (115 on AM labs). Reassurance and hyper/hypoglycemia education provided. Objective - Vital Signs/Intake and Output Vital Signs (last 24 hours): Temp Pulse Resp BP Pulse Ox 98.1 F 92 H 20 110/73 92 L 09/12/17 08:43 09/12/17 10:00 09/12/17 08:43 09/12/17 09:32 09/12/17 08:43 Intake and Output: 09/12/17 09/12/17 06:59 18:59 Intake Total 960 Output Total 1200 Balance -240 - Medications Medications: Current Medications Apixaban (Eliquis) 5 mg PO BID KEITH PRN Reason: Protocol Last Admin: 09/12/17 09:33 Dose: 5 mg Arformoterol Tartrate (Brovana) 15 mcg IH [id number] KEITH Last Admin: 09/12/17 07:53 Dose: 15 mcg Aripiprazole (Abilify) 30 mg PO HS KEITH PRN Reason: Protocol Last Admin: 09/11/17 22:15 Dose: 30 mg Atorvastatin Calcium (Lipitor) 10 mg PO DIN KEITH Last Admin: 09/11/17 17:25 Dose: 10 mg Budesonide (Pulmicort Respules) 0.5 mg IH [id number] KEITH Last Admin: 09/12/17 07:54 Dose: 0.5 mg Clonazepam (Klonopin) 0.5 mg PO TID PRN; Protocol PRN Reason: Agitation Last Admin: 09/11/17 22:18 Dose: 0.5 mg Docusate Sodium (Colace) 100 mg PO BID [facility] Last Admin: 09/12/17 09:32 Dose: 100 mg Doxycycline Hyclate (Doryx) 100 mg PO Q12 KEITH PRN Reason: Protocol Stop: 09/19/17 22:01 Last Admin: 09/12/17 09:32 Dose: 100 mg Duloxetine HCl (Cymbalta) 60 mg PO DAILY [facility] Last Admin: 09/12/17 09:32 Dose: 60 mg Meropenem (Merrem Iv 1 Gm Premix) 50 mls @ 100 mls/hr IVPB Q8 [facility] PRN Reason: Protocol Stop: 09/19/17 22:01 Last Admin: 09/12/17 05:56 Dose: 100 mls/hr Vancomycin HCl (Vancomycin 1gm) 1 gm in 250 mls @ 167 mls/hr IVPB Q12H [facility] PRN Reason: Protocol Stop: 09/19/17 16:01 Last Admin: 09/12/17 03:14 Dose: 167 mls/hr Sodium Chloride (Sodium Chloride 0.9%) 1,000 mls @ 80 mls/hr IV [id number] [facility] Last Admin: 09/11/17 22:23 Dose: 80 mls/hr Potassium Chloride (Potassium Chloride 10 Meq/100 Ml) 10 meq in 100 mls @ 50 mls/hr IVPB Q2H [facility] Stop: 09/12/17 13:29 Last Admin: 09/12/17 09:31 Dose: 50 mls/hr Levothyroxine Sodium (Synthroid) 175 mcg PO 0600 [facility] Last Admin: 09/12/17 05:56 Dose: 175 mcg Metoprolol Tartrate (Lopressor) 25 mg PO BID [facility] Last Admin: 09/12/17 09:32 Dose: 25 mg Pantoprazole Sodium (Protonix Ec Tab) 40 mg PO DAILY [facility] Last Admin: 09/12/17 09:33 Dose: 40 mg Pregabalin (Lyrica) 50 mg PO DAILY [facility] Last Admin: 09/12/17 09:32 Dose: 50 mg Sucralfate (Carafate Oral Susp) 1 gm PO BID [facility] Last Admin: 09/12/17 09:32 Dose: 1 gm Tramadol HCl (Ultram) 50 mg PO Q8 PRN PRN Reason: Pain, moderate (4-7) Last Admin: 09/12/17 03:23 Dose: 50 mg Zolpidem Tartrate (Ambien) 5 mg PO HS PRN; Protocol PRN Reason: Insomnia Last Admin: 09/11/17 22:15 Dose: 5 mg - Labs Labs: 09/12/17 06:00 09/12/17 06:00 - Additional Findings Additional findings: - Constitutional Appears: Non-toxic, No Acute Distress - Head Exam Head Exam: ATRAUMATIC, NORMOCEPHALIC Additional comments: mild left-sided facial droop (Hx CVA, present on prior exams), but otherwise full movement, no slurred speech or drooling from left side of mouth - Eye Exam Eye Exam: EOMI, Normal appearance. absent: Conjunctival injection, Scleral icterus Pupil Exam: absent: Irregular, Unequal - ENT Exam ENT Exam: Mucous Membranes Moist. absent: Mucous Membranes Dry - Neck Exam Neck Exam: Full ROM, Normal Inspection - Respiratory Exam Respiratory Exam: Clear to Ausculation Bilateral, NORMAL BREATHING PATTERN. absent: Rales, Rhonchi, Wheezes - Cardiovascular Exam Cardiovascular Exam: Irregular Rhythm, +S1, +S2. absent: Bradycardia, Tachycardia, REGULAR RHYTHM, JVD, RRR, +S4, Murmur - GI/Abdominal Exam GI & Abdominal Exam: Soft, Normal Bowel Sounds. absent: Distended, Firm, Rigid , Tenderness - Extremities Exam Extremities Exam: Full ROM (ambulating in room with IV pole, appears to have normal but cautious/slow gait), Normal Inspection. absent: Calf Tenderness, Pedal Edema, Tenderness - Neurological Exam Neurological Exam: -awake and alert, following all commands, moving all extremities spontaneously -mild left-sided weakness as compared to right (left extremities 4+/5 strength, right extremities 5/5 strength), mild left facial droop but otherwise full movement of muscles, no slurred speech or drooling, controlling airway and protecting - Psychiatric Exam Psychiatric exam: Normal Affect, Normal Mood - Skin Skin Exam: Dry, Intact, Normal Color, Warm Assessment and Plan - Assessment and Plan (Free Text) Assessment: This is a 52 yo F with PMH of atrial fibrillation, SHERRY, gastric bypass surgery, and hypercoagulable state on eliquis who presented to [facility] ER with nausea, 1x emesis, generalized weakness and borderline fever (Tmax at home reported as 100.2F). Plan: Emesis and nausea - resolved Left sided deficits - chronic, 2/2 prior CVA SHERRY Hypercoagulable state on Eliquis Obesity Hypothyroidism Bipolar disorder Hx gastric bypass Elevated WBCs - improved -ID consulted, recs appreciated, continue Doxy/Vanc/Merrem pending culture results -procal negative and flu negative, WBCs trending down (7.9 today), afebrile, cultures pending -Cardio consulted, appreciate all recs -CXR in ED notable for bi-basilar opacities, likely atelectasis -GI consulted, recs appreciated -Pulm consulted, appreciate all recs -Continue home eliquis -Continue psych medications -Continue to monitor clinical status, daily labs Case reviewed and discussed at length with attending, Dr. Malave
[2017-09-12] MEDS ORDERED: Dextrose 50% SYRINGE Inj (50 ml) IV PRN (13:07)
--- NOTE | 2017-09-12 13:09 | RAD ---
PROCEDURE: Radiographs of the Right Shoulder HISTORY: R neck pain COMPARISON: No prior. FINDINGS: BONES: Normal. No fracture. JOINTS: Normal. Glenohumeral and acromioclavicular joints preserved. No osteoarthritis. SOFT TISSUES: Normal. OTHER FINDINGS: None. IMPRESSION: Normal radiographs of the right shoulder.
[2017-09-12] MEDS: Sodium Chloride 0.9% 1,000 ML IV SCH ×2 (13:10→21:10)
--- NOTE | 2017-09-12 14:16 | CP.PCM.PN ---
<Liz Barahona - Last Filed: 09/12/17 14:16> Subjective - Date & Time of Evaluation Date of Evaluation: 09/12/17 Time of Evaluation: 12:00 - Subjective Subjective: GI Progress Note Dr. Sanchez Patient seen and examined at bedside. No acute complaints at this time. Pt states she feels better than yesterday. pt is tolerating po intake and last bm was this am. Pt has coker in place. Pt denied fever, chills, sob, chest pains, abdominal pains, nausea, vomiting, diarrhea, or constipation. Objective - Vital Signs/Intake and Output Vital Signs (last 24 hours): Temp Pulse Resp BP Pulse Ox 98.1 F 92 H 20 110/73 92 L 09/12/17 08:43 09/12/17 10:00 09/12/17 08:43 09/12/17 09:32 09/12/17 08:43 Intake and Output: 09/12/17 09/12/17 06:59 18:59 Intake Total 960 Output Total 1200 Balance -240 - Medications Medications: Current Medications Apixaban (Eliquis) 5 mg PO BID [facility] PRN Reason: Protocol Last Admin: 09/12/17 09:33 Dose: 5 mg Arformoterol Tartrate (Brovana) 15 mcg IH [id number] [facility] Last Admin: 09/12/17 07:53 Dose: 15 mcg Aripiprazole (Abilify) 30 mg PO HS [facility] PRN Reason: Protocol Last Admin: 09/11/17 22:15 Dose: 30 mg Atorvastatin Calcium (Lipitor) 10 mg PO DIN [facility] Last Admin: 09/11/17 17:25 Dose: 10 mg Budesonide (Pulmicort Respules) 0.5 mg IH [id number] [facility] Last Admin: 09/12/17 07:54 Dose: 0.5 mg Clonazepam (Klonopin) 0.5 mg PO TID PRN; Protocol PRN Reason: Agitation Last Admin: 09/11/17 22:18 Dose: 0.5 mg Dextrose (Dextrose 50% Inj) 50 ml IV STAT PRN; Protocol PRN Reason: Hypoglycemia Protocol Docusate Sodium (Colace) 100 mg PO BID [facility] Last Admin: 09/12/17 09:32 Dose: 100 mg Doxycycline Hyclate (Doryx) 100 mg PO Q12 [facility] PRN Reason: Protocol Stop: 09/19/17 22:01 Last Admin: 09/12/17 09:32 Dose: 100 mg Duloxetine HCl (Cymbalta) 60 mg PO DAILY [facility] Last Admin: 09/12/17 09:32 Dose: 60 mg Meropenem (Merrem Iv 1 Gm Premix) 50 mls @ 100 mls/hr IVPB Q8 [facility] PRN Reason: Protocol Stop: 09/19/17 22:01 Last Admin: 09/12/17 05:56 Dose: 100 mls/hr Vancomycin HCl (Vancomycin 1gm) 1 gm in 250 mls @ 167 mls/hr IVPB Q12H [facility] PRN Reason: Protocol Stop: 09/19/17 16:01 Last Admin: 09/12/17 03:14 Dose: 167 mls/hr Sodium Chloride (Sodium Chloride 0.9%) 1,000 mls @ 80 mls/hr IV .[id number] [facility] Last Admin: 09/12/17 13:10 Dose: Not Given Dextrose (Dextrose 5% In Water 1000 Ml) 1,000 mls @ 0 mls/hr IV .Q0M PRN; Protocol; Per Protocol PRN Reason: Hypoglycemia Protocol Levothyroxine Sodium (Synthroid) 175 mcg PO 0600 [facility] Last Admin: 09/12/17 05:56 Dose: 175 mcg Metoprolol Tartrate (Lopressor) 25 mg PO BID [facility] Last Admin: 09/12/17 09:32 Dose: 25 mg Pantoprazole Sodium (Protonix Ec Tab) 40 mg PO DAILY [facility] Last Admin: 09/12/17 09:33 Dose: 40 mg Pregabalin (Lyrica) 50 mg PO DAILY [facility] Last Admin: 09/12/17 09:32 Dose: 50 mg Sucralfate (Carafate Oral Susp) 1 gm PO BID [facility] Last Admin: 09/12/17 09:32 Dose: 1 gm Tramadol HCl (Ultram) 50 mg PO Q8 PRN PRN Reason: Pain, moderate (4-7) Last Admin: 09/12/17 03:23 Dose: 50 mg Zolpidem Tartrate (Ambien) 5 mg PO HS PRN; Protocol PRN Reason: Insomnia Last Admin: 09/11/17 22:15 Dose: 5 mg - Labs Labs: 09/12/17 06:00 09/12/17 06:00 - Constitutional Appears: No Acute Distress, Cachectic, Chronically Ill - Head Exam Head Exam: ATRAUMATIC, NORMAL INSPECTION, NORMOCEPHALIC - Eye Exam Eye Exam: EOMI, Normal appearance, PERRL Pupil Exam: NORMAL ACCOMODATION, PERRL - ENT Exam ENT Exam: Mucous Membranes Dry - Neck Exam Neck Exam: Full ROM, Normal Inspection. absent: Lymphadenopathy - Respiratory Exam Respiratory Exam: Clear to Ausculation Bilateral, NORMAL BREATHING PATTERN - Cardiovascular Exam Cardiovascular Exam: REGULAR RHYTHM, +S1, +S2. absent: Murmur - GI/Abdominal Exam GI & Abdominal Exam: Soft, Normal Bowel Sounds. absent: Tenderness - Neurological Exam Neurological Exam: Alert, Awake, CN II-XII Intact, Oriented x3 - Psychiatric Exam Psychiatric exam: Normal Affect, Normal Mood - Skin Skin Exam: Dry, Intact, Normal Color, Warm Assessment and Plan - Assessment and Plan (Free Text) Assessment: Anemia, likely dilution hx gastric bypass rheumatoid arthritis hx CVA with left sided deficits Hypercoagulable state on Eliquis Hypothyroidism Bipolar disorder Hx gastric bypass Leukocytosis downtrending Plan Recently scoped Monitor H&H ADAT Cont abx as per ID Doxy/Vanc/Merrem pending culture results Cardio consulted, appreciate all recs Continue eliquis Discussed with Dr. Sanchez <Radhika Sanchez V - Last Filed: 09/12/17 23:58> Objective - Vital Signs/Intake and Output Vital Signs (last 24 hours): Temp Pulse Resp BP Pulse Ox 98.2 F 75 19 121/77 96 09/12/17 16:00 09/12/17 18:20 09/12/17 16:00 09/12/17 18:20 09/12/17 16:00 Intake and Output: 09/12/1718 18:59 06:59 Intake Total 600 840 Balance 600 840 - Medications Medications: Current Medications Apixaban (Eliquis) 5 mg PO BID [facility] PRN Reason: Protocol Last Admin: 09/12/17 18:20 Dose: 5 mg Arformoterol Tartrate (Brovana) 15 mcg IH [id number] [facility] Last Admin: 09/12/17 19:18 Dose: 15 mcg Aripiprazole (Abilify) 30 mg PO HS [facility] PRN Reason: Protocol Last Admin: 09/12/17 21:11 Dose: 30 mg Atorvastatin Calcium (Lipitor) 10 mg PO DIN [facility] Last Admin: 09/12/17 18:20 Dose: 10 mg Budesonide (Pulmicort Respules) 0.5 mg IH [id number] [facility] Last Admin: 09/12/17 19:18 Dose: 0.5 mg Clonazepam (Klonopin) 0.5 mg PO TID PRN; Protocol PRN Reason: Agitation Last Admin: 09/12/17 21:14 Dose: 0.5 mg Dextrose (Dextrose 50% Inj) 50 ml IV STAT PRN; Protocol PRN Reason: Hypoglycemia Protocol Docusate Sodium (Colace) 100 mg PO BID [facility] Last Admin: 09/12/17 18:20 Dose: 100 mg Doxycycline Hyclate (Doryx) 100 mg PO Q12 [facility] PRN Reason: Protocol Stop: 09/19/17 22:01 Last Admin: 09/12/17 21:11 Dose: 100 mg Duloxetine HCl (Cymbalta) 60 mg PO DAILY [facility] Last Admin: 09/12/17 09:32 Dose: 60 mg Meropenem (Merrem Iv 1 Gm Premix) 50 mls @ 100 mls/hr IVPB Q8 [facility] PRN Reason: Protocol Stop: 09/19/17 22:01 Last Admin: 09/12/17 21:11 Dose: 100 mls/hr Sodium Chloride (Sodium Chloride 0.9%) 1,000 mls @ 80 mls/hr IV .[id number] [facility] Last Admin: 09/12/17 13:10 Dose: Not Given Dextrose (Dextrose 5% In Water 1000 Ml) 1,000 mls @ 0 mls/hr IV .Q0M PRN; Protocol; Per Protocol PRN Reason: Hypoglycemia Protocol Levothyroxine Sodium (Synthroid) 175 mcg PO 0600 [facility] Last Admin: 09/12/17 05:56 Dose: 175 mcg Metoprolol Tartrate (Lopressor) 25 mg PO BID [facility] Last Admin: 09/12/17 18:20 Dose: 25 mg Pantoprazole Sodium (Protonix Ec Tab) 40 mg PO DAILY [facility] Last Admin: 09/12/17 09:33 Dose: 40 mg Pregabalin (Lyrica) 50 mg PO DAILY [facility] Last Admin: 09/12/17 09:32 Dose: 50 mg Sucralfate (Carafate Oral Susp) 1 gm PO BID [facility] Last Admin: 09/12/17 18:20 Dose: 1 gm Tramadol HCl (Ultram) 50 mg PO Q8 PRN PRN Reason: Pain, moderate (4-7) Last Admin: 09/12/17 03:23 Dose: 50 mg Zolpidem Tartrate (Ambien) 5 mg PO HS PRN; Protocol PRN Reason: Insomnia Last Admin: 09/12/17 21:14 Dose: 5 mg - Labs Labs: 09/12/17 06:00 09/12/17 15:54 Attending/Attestation - Attestation I have personally seen and examined this patient.: Yes I have fully participated in the care of the patient.: Yes I have reviewed all pertinent clinical information, including history, physical exam and plan: Yes Notes (Text): This is an addendum to GI progress report dictated by the Mobile Tester.The patient was seen and examined earlier. Medical records, lab studies, imagings were reviewed. Last 24 hours events reviewed. Agreed with the above treatment plan as outlined in Mobile Tester 's notes the with the addition of the following Tolerating the diet hemoglobin stable no bleeding per rectum or melena continue PPI follow-up of hemoglobin hematocrit MR enterography planned as an outpatient 09/12/17 23:57
--- NOTE | 2017-09-12 15:48 | PN ---
DATE: 09/12/2017 SUBJECTIVE: The patient denies any chest pain, shortness of breath or any palpitation. PHYSICAL EXAMINATION GENERAL: Not in any apparent distress. VITAL SIGNS: Temperature afebrile, heart rate 74, blood pressure 110/73. HEENT: PERRLA. Extraocular muscles intact. NECK: Supple. No carotid bruit or thyromegaly. CHEST: Clear to auscultation. HEART: S1 and S2 regular. ABDOMEN: Soft. EXTREMITIES: Clubbing and cyanosis negative. LABORATORY DATA: WBC of 7.9, hemoglobin , hematocrit 31.1, platelet count 207. Chemistry shows sodium 142, potassium 3.3, chloride 111, carbon dioxide 25, anion gap of 10, BUN of 11, creatinine 0.8. IMPRESSION: Fever, sepsis, paroxysmal atrial fibrillation, so far the blood culture is negative. No evidence of acute myocardial infarction. Recent noninvasive cardiac workup is negative including a stress test dated 08/18/2017 negative. Previous echo dated 11/18/2016, ejection fraction 55%-60%, trace aortic regurgitation, [id number] mitral regurgitation, trace mild tricuspid regurgitation, right ventricular systolic pressure of 26. RECOMMENDATION: Continue blood culture. Continue antibiotic. Continue beta luisa. Continue Eliquis. We will follow with you. Supplement potassium. CVS status is stable. No further episode of arrhythmia noted. We will discontinue telemetry. Continue atorvastatin. We will put low dose of beta luisa. Gisselle Parker MD
--- NOTE | 2017-09-12 16:47 | CON ---
DATE: HISTORY OF PRESENT ILLNESS: The patient is 52-year-old, known to me from previous admission, came to emergency room because of not feeling well. She has fevers and chills. She also was found to be anemic. She also has a history of hypertension, history of pneumonia, history of CVA, mild renal insufficiency, chronic anemia, generalized osteoarthritis, history of peptic ulcer disease, and bipolar disorder. FAMILY HISTORY: No significant disease. SOCIAL HISTORY: Denies smoking, drinking, or alcohol use. ALLERGIES: SHE IS ALLERGIC TO IV CONTRAST, MEPERIDINE, AND IODINE. MEDICATIONS AT HOME: She is on Abilify 30 mg at bedtime, Ambien 5 mg at bedtime, Carafate 1 gm twice a day, Colace 100 mg twice a day, Lipitor 10 mg daily, metoprolol 25 twice a day, Lyrica 50 mg daily, doxycycline 100 mg twice a day, and Cymbalta 60 mg daily. REVIEW OF SYSTEMS: The patient states her generalized weakness is much better, able to eat and tolerate. PHYSICAL EXAMINATION: GENERAL: She is awake, alert, oriented, communicative. VITAL SIGNS: She is afebrile, pulse 92, respirations 20, blood pressure 110/73. LUNGS: Bilateral good airflow. No rhonchi or crackles. HEART: S1 and S2 audible. ABDOMEN: Soft, nontender. No rebound. No guarding. NEUROLOGICAL: She is awake, alert, oriented, able to communicate and ambulate. EXTREMITIES: Bilateral legs, no edema. LABORATORY DATA: WBC 7.9, hemoglobin 9.6, hematocrit 31, platelet was 207. Chemistry: Sodium 142, potassium 3.3, chloride 111, CO2 of 25, BUN 11, creatinine 0.8, blood sugar of 115. TSH is 0.26. Flu test is negative. She had cervical spine x-ray done that is unremarkable. X-ray just shows bibasilar opacities consistent with atelectasis. ASSESSMENT: 1. Chronic obstructive pulmonary disease exacerbation. 2. Atrial fibrillation. 3. History of gastric bypass. 4. History of schizophrenia. 5. Depression. 6. Obstructive sleep apnea. 7. Neuropathy. 8. Hyperlipidemia. 9. Hypothyroidism. PLAN: Currently, the patient is being seen by Infectious Disease doctor. Diversity Specialist also has been consulted. The patient is on Brovana. She is on Cymbalta. She is receiving doxycycline. She is on Eliquis for AFib. She has been started on doxycycline and meropenem and Protonix 40 daily. She is also receiving vancomycin q. 12, we will continue that. So, plan is currently the patient is on Pulmicort and Brovana. She is receiving IV antibiotics, we will continue that. Thank you for consult. We will follow with you. Reji Butler MD
--- NOTE | 2017-09-12 17:34 | CP.PCM.PN ---
Subjective - Date & Time of Evaluation Date of Evaluation: 09/12/17 Time of Evaluation: 11:00 - Subjective Subjective: Comfortable, no fevers, breathing better. Objective - Vital Signs/Intake and Output Vital Signs (last 24 hours): Temp Pulse Resp BP Pulse Ox 98.1 F 74 20 110/73 92 L 09/12/17 08:43 09/12/17 08:43 09/12/17 08:43 09/12/17 08:43 09/12/17 08:43 Intake and Output: 09/12/17 09/12/17 06:59 18:59 Intake Total 960 Output Total 1200 Balance -240 - Medications Medications: Current Medications Apixaban (Eliquis) 5 mg PO BID [facility] PRN Reason: Protocol Last Admin: 09/11/17 17:23 Dose: 5 mg Arformoterol Tartrate (Brovana) 15 mcg IH [id number] [facility] Last Admin: 09/12/17 07:53 Dose: 15 mcg Aripiprazole (Abilify) 30 mg PO HS [facility] PRN Reason: Protocol Last Admin: 09/11/17 22:15 Dose: 30 mg Atorvastatin Calcium (Lipitor) 10 mg PO DIN [facility] Last Admin: 09/11/17 17:25 Dose: 10 mg Budesonide (Pulmicort Respules) 0.5 mg IH [id number] [facility] Last Admin: 09/12/17 07:54 Dose: 0.5 mg Clonazepam (Klonopin) 0.5 mg PO TID PRN; Protocol PRN Reason: Agitation Last Admin: 09/11/17 22:18 Dose: 0.5 mg Docusate Sodium (Colace) 100 mg PO BID [facility] Last Admin: 09/11/17 17:22 Dose: 100 mg Doxycycline Hyclate (Doryx) 100 mg PO Q12 [facility] PRN Reason: Protocol Stop: 09/19/17 22:01 Last Admin: 09/11/17 22:15 Dose: 100 mg Duloxetine HCl (Cymbalta) 60 mg PO DAILY [facility] Last Admin: 09/11/17 10:11 Dose: 60 mg Meropenem (Merrem Iv 1 Gm Premix) 50 mls @ 100 mls/hr IVPB Q8 [facility] PRN Reason: Protocol Stop: 09/19/17 22:01 Last Admin: 09/12/17 05:56 Dose: 100 mls/hr Vancomycin HCl (Vancomycin 1gm) 1 gm in 250 mls @ 167 mls/hr IVPB Q12H [facility] PRN Reason: Protocol Stop: 09/19/17 16:01 Last Admin: 09/12/17 03:14 Dose: 167 mls/hr Sodium Chloride (Sodium Chloride 0.9%) 1,000 mls @ 80 mls/hr IV .[id number] [facility] Last Admin: 09/11/17 22:23 Dose: 80 mls/hr Levothyroxine Sodium (Synthroid) 175 mcg PO 0600 [facility] Last Admin: 09/12/17 05:56 Dose: 175 mcg Metoprolol Tartrate (Lopressor) 25 mg PO BID [facility] Last Admin: 09/11/17 17:23 Dose: 25 mg Pantoprazole Sodium (Protonix Ec Tab) 40 mg PO DAILY [facility] Last Admin: 09/11/17 10:12 Dose: 40 mg Pregabalin (Lyrica) 50 mg PO DAILY [facility] Last Admin: 09/11/17 10:12 Dose: 50 mg Sucralfate (Carafate Oral Susp) 1 gm PO BID [facility] Last Admin: 09/11/17 17:22 Dose: 1 gm Tramadol HCl (Ultram) 50 mg PO Q8 PRN PRN Reason: Pain, moderate (4-7) Last Admin: 09/12/17 03:23 Dose: 50 mg Zolpidem Tartrate (Ambien) 5 mg PO HS PRN; Protocol PRN Reason: Insomnia Last Admin: 09/11/17 22:15 Dose: 5 mg - Labs Labs: 09/12/17 06:00 09/12/17 06:00 - Constitutional Appears: Chronically Ill - Head Exam Head Exam: NORMAL INSPECTION - ENT Exam ENT Exam: Mucous Membranes Moist - Neck Exam Neck Exam: absent: Meningismus - Respiratory Exam Respiratory Exam: Decreased Breath Sounds - Cardiovascular Exam Cardiovascular Exam: +S1, +S2 - GI/Abdominal Exam GI & Abdominal Exam: Soft. absent: Tenderness Assessment and Plan - Assessment and Plan (Free Text) Plan: Assessment R/O severe sepsis from HCAP, with acute bronchitis history of sepsis due to left sided HCAP, slowly improving history of sepsis due to MRSA bacteremia, probably from port-a-cath S/P removal history of HCAP rheumatoid arthritis history of transient ischemic attack obstructive sleep apnea Morbid obesity with BMI 40 hypothyroidism bipolar disorder shcizoaffective disorder, S/P gastric bypass surgery Plan continue Doxycycline, d/c Vancomycin, continue Merrem day 3 and can switch to PO Doxycycline and augmentin for 3-5 days on discharge will continue to monitor clinically
--- NOTE | 2017-09-13 03:38 | PN ---
DATE: 09/12/2017 PULMONARY PROGRESS NOTE REFERRING PHYSICIAN: Ronal Kahn MD. SUBJECTIVE: Patient is sitting up in a chair. Night was unremarkable. Feels better. Decreased cough, decreased shortness of breath. No nausea, vomiting or diarrhea. No leg pain or leg swelling. OBJECTIVE: GENERAL: In no acute distress. VITAL SIGNS: Temperature is 98, heart rate 75, respiratory rate is 20, blood pressure 121/77, pulse ox 96% on room air. HEENT: Moist mucous membrane. Mallampati score is 4. NECK: Supple. No JVD. LUNGS: Have a fair airflow with rhonchi. HEART: S1 and S2. ABDOMEN: Soft, nontender. No organomegaly. EXTREMITIES: No edema. NEUROLOGICAL: Awake, alert, follows simple command. MEDICATIONS: She is on Abilify 30 mg at bedtime, Ambien 5 mg at bedtime p.r.n., Brovana inhaled twice a day, Carafate 1 g twice a day, Colace 100 mg twice a day, Cymbalta 60 mg daily, IV fluid D5 p.r.n. for hypoglycemia, doxycycline 100 mg twice a day, Eliquis 5 mg twice a day, clonazepam 0.5 mg three times a day p.r.n., Lipitor 10 mg daily, metoprolol tartrate 25 mg twice a day, Lyrica 50 mg daily, meropenem 1 g IV q. 8 hours, Protonix 40 mg daily, Pulmicort inhaled twice a day, IV fluid normal saline 80 mL per hour, Synthroid 175 mcg daily, Ultram 50 mg q. 8 hours p.r.n. LABORATORY DATA: Shows hemoglobin 9.6, hematocrit 31.1, WBC 7.9, platelet is 207. Blood sugar is 118. Microbiology, blood culture, urine culture, there is no growth. IMPRESSION AND PLAN: Chronic obstructive lung disease, atrial fibrillation, history of gastric bypass surgery in the remote past, may have sleep apnea syndrome, claustrophobic, schizophrenia, depression, urinary tract infection, acute bronchitis. From a Pulmonary point of view, she is doing okay. Continue bronchodilator. Keep head at 45 degrees. Antibiotics as per Infectious Disease. Gastric prophylaxis, deep venous thrombosis prophylaxis. Fall precaution, sleep apnea precaution. Careful with sedation. Thank you and we will follow with you Gisselle Sears MD [facility] # [id number]
[2017-09-13] MEDS: Meropenem IV 1 gm in NS 50 ML IVPB SCH ×3 (05:01→21:20)
[2017-09-13] MEDS: Levothyroxine 175 MCG TAB PO SCH (05:02)
[2017-09-13 05:50] LABS: BASO # 0.03 K/mm3 (0.0-2.0); BASO % 0.4 % (0.0-3.0); EOS # 0.3 (0.0-0.7); EOS % 3.7 % (1.5-5.0); GRAN # 4.02 (1.4-6.5); GRAN % 54.9 % (50.0-68.0); HEMOGLOBIN 10.3 g/dL (12.0-16.0); LYMPH # 2.5 (1.2-3.4); LYMPH % 34.6 % (22.0-35.0); MEAN CELL VOLUME 92.6 fl (80.0-105.0); MEAN CORPUSCULAR HEMOGLOBIN 29.5 pg (25.0-35.0); MEAN CORPUSCULAR HGB CONC 31.9 g/dl (31.0-37.0); MEAN PLATELET VOLUME 10.2 fl (7.0-11.0); MONO # 0.5 (0.1-0.6); MONO % 6.4 % (1.0-6.0); RBC 3.49 10^6/uL (3.5-6.1); RED CELL DISTRIBUTION WIDTH 15.4 % (11.5-14.5); WHITE BLOOD COUNT 7.3 10^3/ul (4.5-11.0)
[2017-09-13 06:38] LABS: ALBUMIN 3.1 g/dL (3.0-4.8); ALT/SGPT 20 U/L (7-56); AST/SGOT 28 U/L (14-36); BLOOD UREA NITROGEN 9 mg/dL (7-21); CALCIUM 9.2 mg/dL (8.4-10.5); GFR AFRICAN-AMERICAN > 60; GFR NON-AFRICAN AMERICAN > 60
[2017-09-13] MEDS: Arformoterol 15 mcg/2 ml Inh Sol IH SCH ×2 (07:18→19:02)
[2017-09-13] MEDS: Budesonide 0.5 mg/2 ml Inhal Susp UD IH SCH ×2 (07:18→19:02)
[2017-09-13] MEDS: Sucralfate 1 gm/10 ml Oral Susp UD PO SCH ×2 (09:47→17:48)
[2017-09-13] MEDS: Pantoprazole 40 mg EC Tab PO SCH (09:48)
[2017-09-13] MEDS: Sodium Chloride 0.9% 1,000 ML IV SCH (09:56)
--- NOTE | 2017-09-13 12:26 | CP.PCM.PN ---
<Eduardo Self - Last Filed: 09/13/17 12:23> Subjective - Date & Time of Evaluation Date of Evaluation: 09/13/17 Time of Evaluation: 12:23 - Subjective Subjective: GI Progress Note Dr. Sanchez Patient seen and examined at bedside. No acute events overnight, no new complaints at this time. pt is tolerating po intake without any bloody bowel movements. Pt denied fever, chills, sob, chest pains, abdominal pains, nausea, vomiting, diarrhea, or constipation. Objective - Vital Signs/Intake and Output Vital Signs (last 24 hours): Temp Pulse Resp BP Pulse Ox 97.5 F L 76 20 114/80 99 09/13/17 08:39 09/13/17 09:48 09/13/17 08:39 09/13/17 09:48 09/13/17 08:39 Intake and Output: 09/13/17 09/13/17 06:59 18:59 Intake Total 3180 Balance 3180 - Medications Medications: Current Medications Apixaban (Eliquis) 5 mg PO BID KEITH PRN Reason: Protocol Last Admin: 09/13/17 09:48 Dose: 5 mg Arformoterol Tartrate (Brovana) 15 mcg IH [id number] KEITH Last Admin: 09/13/17 07:18 Dose: 15 mcg Aripiprazole (Abilify) 30 mg PO HS KEITH PRN Reason: Protocol Last Admin: 09/12/17 21:11 Dose: 30 mg Atorvastatin Calcium (Lipitor) 10 mg PO DIN KEITH Last Admin: 09/12/17 18:20 Dose: 10 mg Budesonide (Pulmicort Respules) 0.5 mg IH [id number] KEITH Last Admin: 09/13/17 07:18 Dose: 0.5 mg Clonazepam (Klonopin) 0.5 mg PO TID PRN; Protocol PRN Reason: Agitation Last Admin: 09/12/17 21:14 Dose: 0.5 mg Dextrose (Dextrose 50% Inj) 50 ml IV STAT PRN; Protocol PRN Reason: Hypoglycemia Protocol Docusate Sodium (Colace) 100 mg PO BID KEITH Last Admin: 09/13/17 09:48 Dose: 100 mg Doxycycline Hyclate (Doryx) 100 mg PO Q12 KEITH PRN Reason: Protocol Stop: 09/19/17 22:01 Last Admin: 09/13/17 09:48 Dose: 100 mg Duloxetine HCl (Cymbalta) 60 mg PO DAILY [facility] Last Admin: 09/13/17 09:48 Dose: 60 mg Meropenem (Merrem Iv 1 Gm Premix) 50 mls @ 100 mls/hr IVPB Q8 KEITH PRN Reason: Protocol Stop: 09/19/17 22:01 Last Admin: 09/13/17 05:01 Dose: 100 mls/hr Dextrose (Dextrose 5% In Water 1000 Ml) 1,000 mls @ 0 mls/hr IV .Q0M PRN; Protocol; Per Protocol PRN Reason: Hypoglycemia Protocol Levothyroxine Sodium (Synthroid) 175 mcg PO 0600 [facility] Last Admin: 09/13/17 05:02 Dose: 175 mcg Metoprolol Tartrate (Lopressor) 25 mg PO BID [facility] Last Admin: 09/13/17 09:48 Dose: 25 mg Pantoprazole Sodium (Protonix Ec Tab) 40 mg PO DAILY [facility] Last Admin: 09/13/17 09:48 Dose: 40 mg Pregabalin (Lyrica) 50 mg PO DAILY [facility] Last Admin: 09/13/17 09:48 Dose: 50 mg Sucralfate (Carafate Oral Susp) 1 gm PO BID [facility] Last Admin: 09/13/17 09:47 Dose: 1 gm Tramadol HCl (Ultram) 50 mg PO Q8 PRN PRN Reason: Pain, moderate (4-7) Last Admin: 09/12/17 03:23 Dose: 50 mg Zolpidem Tartrate (Ambien) 5 mg PO HS PRN; Protocol PRN Reason: Insomnia Last Admin: 09/12/17 21:14 Dose: 5 mg - Labs Labs: 09/13/17 05:18 09/13/17 05:18 - Constitutional Appears: Non-toxic, No Acute Distress - Head Exam Head Exam: ATRAUMATIC, NORMAL INSPECTION, NORMOCEPHALIC - Eye Exam Eye Exam: EOMI, Normal appearance - ENT Exam ENT Exam: Mucous Membranes Moist - Respiratory Exam Respiratory Exam: NORMAL BREATHING PATTERN - Cardiovascular Exam Cardiovascular Exam: +S1, +S2 - GI/Abdominal Exam GI & Abdominal Exam: Soft, Normal Bowel Sounds. absent: Firm, Guarding, Rigid, Tenderness - Neurological Exam Neurological Exam: Alert, Awake - Psychiatric Exam Psychiatric exam: Normal Affect, Normal Mood - Skin Skin Exam: Dry, Intact Assessment and Plan - Assessment and Plan (Free Text) Assessment: Anemia, likely dilution hx gastric bypass rheumatoid arthritis hx CVA with left sided deficits Hypercoagulable state on Eliquis Hypothyroidism Bipolar disorder Hx gastric bypass Leukocytosis downtrending Plan Pt Hgb stable no blood per rectum unlikely GI cause of Hgb The GI service will sign off and follow peripherally. Thank you for the consult. If the patient needs further evaluation please reconsult PRN. D/W Dr. Daniel Self PGY2 <Radhika Sanchez V - Last Filed: 09/13/17 20:29> Objective - Vital Signs/Intake and Output Vital Signs (last 24 hours): Temp Pulse Resp BP Pulse Ox 98.2 F 79 20 121/96 H 98 09/13/17 16:00 09/13/17 17:48 09/13/17 16:00 09/13/17 17:48 09/13/17 16:00 - Medications Medications: Current Medications Apixaban (Eliquis) 5 mg PO BID KEITH PRN Reason: Protocol Last Admin: 09/13/17 17:48 Dose: 5 mg Arformoterol Tartrate (Brovana) 15 mcg IH [id number] KEITH Last Admin: 09/13/17 19:02 Dose: 15 mcg Aripiprazole (Abilify) 30 mg PO HS KEITH PRN Reason: Protocol Last Admin: 09/12/17 21:11 Dose: 30 mg Atorvastatin Calcium (Lipitor) 10 mg PO DIN KEITH Last Admin: 09/13/17 17:48 Dose: 10 mg Budesonide (Pulmicort Respules) 0.5 mg IH [id number] KEITH Last Admin: 09/13/17 19:02 Dose: 0.5 mg Clonazepam (Klonopin) 0.5 mg PO TID PRN; Protocol PRN Reason: Agitation Last Admin: 09/12/17 21:14 Dose: 0.5 mg Dextrose (Dextrose 50% Inj) 50 ml IV STAT PRN; Protocol PRN Reason: Hypoglycemia Protocol Docusate Sodium (Colace) 100 mg PO BID KEITH Last Admin: 09/13/17 17:48 Dose: 100 mg Doxycycline Hyclate (Doryx) 100 mg PO Q12 KEITH PRN Reason: Protocol Stop: 09/19/17 22:01 Last Admin: 09/13/17 09:48 Dose: 100 mg Duloxetine HCl (Cymbalta) 60 mg PO DAILY [facility] Last Admin: 09/13/17 09:48 Dose: 60 mg Meropenem (Merrem Iv 1 Gm Premix) 50 mls @ 100 mls/hr IVPB Q8 KEITH PRN Reason: Protocol Stop: 09/19/17 22:01 Last Admin: 09/13/17 13:45 Dose: 100 mls/hr Dextrose (Dextrose 5% In Water 1000 Ml) 1,000 mls @ 0 mls/hr IV .Q0M PRN; Protocol; Per Protocol PRN Reason: Hypoglycemia Protocol Levothyroxine Sodium (Synthroid) 125 mcg PO ACB [facility] Metoprolol Tartrate (Lopressor) 25 mg PO BID [facility] Last Admin: 09/13/17 17:48 Dose: 25 mg Pantoprazole Sodium (Protonix Ec Tab) 40 mg PO DAILY [facility] Last Admin: 09/13/17 09:48 Dose: 40 mg Pregabalin (Lyrica) 50 mg PO DAILY [facility] Last Admin: 09/13/17 09:48 Dose: 50 mg Sucralfate (Carafate Oral Susp) 1 gm PO BID [facility] Last Admin: 09/13/17 17:48 Dose: 1 gm Tramadol HCl (Ultram) 50 mg PO Q8 PRN PRN Reason: Pain, moderate (4-7) Last Admin: 09/12/17 03:23 Dose: 50 mg Zolpidem Tartrate (Ambien) 5 mg PO HS PRN; Protocol PRN Reason: Insomnia Last Admin: 09/12/17 21:14 Dose: 5 mg - Labs Labs: 09/13/17 05:18 09/13/17 05:18 Attending/Attestation - Attestation I have personally seen and examined this patient.: Yes I have fully participated in the care of the patient.: Yes I have reviewed all pertinent clinical information, including history, physical exam and plan: Yes Notes (Text): This is an addendum to GI progress report dictated by the [employer].The patient was seen and examined earlier. Medical records, lab studies, imagings were reviewed. Last 24 hours events reviewed. Agreed with the above treatment plan as outlined in [employer] 's notes the with the addition of the following he is Patient is tolerating the diet No complaints of any abdominal pain No bleeding per rectum or melena Abdomen soft no tenderness Continue close follow up HEMOGLOBIN Continue PPI Recommended to have MR enterography as an outpatient to further evaluate small bowel erosions Will follow up as needed. Thank you very much for this to participate in the care of the patient 09/13/17 20:27
--- NOTE | 2017-09-13 13:07 | PN ---
DATE: SUBJECTIVE: The patient is 52 years old. She says she decided to coming to office since she used to be Dr. Yip's patient, since he is not in practice anymore, was decided [place] primary care physician. The patient states she was not feeling well, having fever and chills and urinary symptoms, so she came to the ER, was found to have UTI and being on antibiotics. She states she feels a little better. Complains of back pain. PHYSICAL EXAMINATION: VITAL SIGNS: She is afebrile, pulse 76, respirations 20, blood pressure 114/80. LUNGS: Bilateral good airflow. No rhonchi or crackle. HEART: S1 and S2 audible. ABDOMEN: Soft, obese, nontender. No rebound. No guarding. NEUROLOGIC: The patient is awake and alert, able to communicate. LABORATORY EXAM: WBC 7.3, hemoglobin 10.3, hematocrit 34.3, platelet 243. Chemistry: Sodium 143, potassium 3.9, chloride 110, CO2 of 25, BUN 9, creatinine 0.8, blood sugar of 88. Flu test is negative. X-ray of the shoulder and cervical spine, x-ray of the shoulder is negative. Cervical spine showed degenerative disk disease. Mild degenerative disease. ASSESSMENT: 1. History of chronic obstructive pulmonary disease with asthmatic bronchitis. 2. History of schizoaffective disorder. 3. Morbid obesity. 4. Inflammatory response syndrome causing leukocytosis upon admission, although the patient states she had fever at home, but however there is no documented fever in the hospital stay. 5. Hyperlipidemia. 6. Hypothyroidism. 7. Chronic atrial fibrillation. PLAN: Currently, the patient is on Brovana and doxycycline. She is on Eliquis, atorvastatin, meropenem. The patient seems to be clinically stable. Once the antibiotic is switched to p.o., we will make discharge plan. The patient is eating and tolerating. We will discontinue her IV fluid. Reji Butler MD
--- NOTE | 2017-09-13 14:28 | CP.PCM.PN ---
Subjective - Date & Time of Evaluation Date of Evaluation: 09/13/17 Time of Evaluation: 10:35 - Subjective Subjective: Comfortable, no fevers, feeling better, breathing better, no nausea or diarrhea. Objective - Vital Signs/Intake and Output Vital Signs (last 24 hours): Temp Pulse Resp BP Pulse Ox 97.5 F L 76 20 114/80 99 09/13/17 08:39 09/13/17 09:48 09/13/17 08:39 09/13/17 09:48 09/13/17 08:39 Intake and Output: 09/13/17 09/13/17 06:59 18:59 Intake Total 3180 Balance 3180 - Medications Medications: Current Medications Apixaban (Eliquis) 5 mg PO BID KEITH PRN Reason: Protocol Last Admin: 09/13/17 09:48 Dose: 5 mg Arformoterol Tartrate (Brovana) 15 mcg IH [id number] [facility] Last Admin: 09/13/17 07:18 Dose: 15 mcg Aripiprazole (Abilify) 30 mg PO HS KEITH PRN Reason: Protocol Last Admin: 09/12/17 21:11 Dose: 30 mg Atorvastatin Calcium (Lipitor) 10 mg PO DIN [facility] Last Admin: 09/12/17 18:20 Dose: 10 mg Budesonide (Pulmicort Respules) 0.5 mg IH [id number] KEITH Last Admin: 09/13/17 07:18 Dose: 0.5 mg Clonazepam (Klonopin) 0.5 mg PO TID PRN; Protocol PRN Reason: Agitation Last Admin: 09/12/17 21:14 Dose: 0.5 mg Dextrose (Dextrose 50% Inj) 50 ml IV STAT PRN; Protocol PRN Reason: Hypoglycemia Protocol Docusate Sodium (Colace) 100 mg PO BID [facility] Last Admin: 09/13/17 09:48 Dose: 100 mg Doxycycline Hyclate (Doryx) 100 mg PO Q12 KEITH PRN Reason: Protocol Stop: 09/19/17 22:01 Last Admin: 09/13/17 09:48 Dose: 100 mg Duloxetine HCl (Cymbalta) 60 mg PO DAILY [facility] Last Admin: 09/13/17 09:48 Dose: 60 mg Meropenem (Merrem Iv 1 Gm Premix) 50 mls @ 100 mls/hr IVPB Q8 KEITH PRN Reason: Protocol Stop: 09/19/17 22:01 Last Admin: 09/13/17 13:45 Dose: 100 mls/hr Dextrose (Dextrose 5% In Water 1000 Ml) 1,000 mls @ 0 mls/hr IV .Q0M PRN; Protocol; Per Protocol PRN Reason: Hypoglycemia Protocol Levothyroxine Sodium (Synthroid) 175 mcg PO 0600 [facility] Last Admin: 09/13/17 05:02 Dose: 175 mcg Metoprolol Tartrate (Lopressor) 25 mg PO BID [facility] Last Admin: 09/13/17 09:48 Dose: 25 mg Pantoprazole Sodium (Protonix Ec Tab) 40 mg PO DAILY [facility] Last Admin: 09/13/17 09:48 Dose: 40 mg Pregabalin (Lyrica) 50 mg PO DAILY [facility] Last Admin: 09/13/17 09:48 Dose: 50 mg Sucralfate (Carafate Oral Susp) 1 gm PO BID [facility] Last Admin: 09/13/17 09:47 Dose: 1 gm Tramadol HCl (Ultram) 50 mg PO Q8 PRN PRN Reason: Pain, moderate (4-7) Last Admin: 09/12/17 03:23 Dose: 50 mg Zolpidem Tartrate (Ambien) 5 mg PO HS PRN; Protocol PRN Reason: Insomnia Last Admin: 09/12/17 21:14 Dose: 5 mg - Labs Labs: 09/13/17 05:18 09/13/17 05:18 - Constitutional Appears: Chronically Ill - Head Exam Head Exam: NORMAL INSPECTION - ENT Exam ENT Exam: Mucous Membranes Moist - Neck Exam Neck Exam: absent: Meningismus - Respiratory Exam Respiratory Exam: Decreased Breath Sounds - Cardiovascular Exam Cardiovascular Exam: +S1, +S2 - GI/Abdominal Exam GI & Abdominal Exam: Soft. absent: Tenderness Assessment and Plan - Assessment and Plan (Free Text) Plan: Assessment R/O severe sepsis from HCAP, with acute bronchitis history of sepsis due to left sided HCAP, slowly improving history of sepsis due to MRSA bacteremia, probably from port-a-cath S/P removal history of HCAP rheumatoid arthritis history of transient ischemic attack obstructive sleep apnea Morbid obesity with BMI 40 hypothyroidism bipolar disorder shcizoaffective disorder, S/P gastric bypass surgery Plan continue Doxycycline, Merrem day 4 and can switch to PO Doxycycline and augmentin for 3-5 days on discharge will continue to monitor clinically
--- NOTE | 2017-09-13 15:08 | CP.PCM.PN ---
Subjective - Date & Time of Evaluation Date of Evaluation: 09/13/17 Time of Evaluation: 08:50 - Subjective Subjective: Heme-onc Progress Note, Caden Greene DO, PGY-2 IM This is a 52 yo F with PMH of atrial fibrillation, SHERRY, gastric bypass surgery, and hypercoagulable state on eliquis who presented to [facility] ER with nausea, 1x emesis, generalized weakness and borderline fever (Tmax at home reported as 100.2F). Patient seen at bedside today. Resting well, reports continued improvement in symptoms, denies any acute complaints at time of exam. Reports an episode of emesis overnight, non-bloody/non-bilious, but otherwise feels well and is tolerating her PO intake. No fevers or chills. Reported to have multiple hypoglycemic readings since yesterday despite being on hypoglycemia protocol; denies any episodes of syncope/near-syncope, diaphoresis, dizziness, or palpitations. Objective - Vital Signs/Intake and Output Vital Signs (last 24 hours): Temp Pulse Resp BP Pulse Ox 97.5 F L 76 20 114/80 99 09/13/17 08:39 09/13/17 09:48 09/13/17 08:39 09/13/17 09:48 09/13/17 08:39 Intake and Output: 09/13/17 09/13/17 06:59 18:59 Intake Total 3180 Balance 3180 - Medications Medications: Current Medications Apixaban (Eliquis) 5 mg PO BID KEITH PRN Reason: Protocol Last Admin: 09/13/17 09:48 Dose: 5 mg Arformoterol Tartrate (Brovana) 15 mcg IH [id number] KEITH Last Admin: 09/13/17 07:18 Dose: 15 mcg Aripiprazole (Abilify) 30 mg PO HS KEITH PRN Reason: Protocol Last Admin: 09/12/17 21:11 Dose: 30 mg Atorvastatin Calcium (Lipitor) 10 mg PO DIN KEITH Last Admin: 09/12/17 18:20 Dose: 10 mg Budesonide (Pulmicort Respules) 0.5 mg IH [id number] KEITH Last Admin: 09/13/17 07:18 Dose: 0.5 mg Clonazepam (Klonopin) 0.5 mg PO TID PRN; Protocol PRN Reason: Agitation Last Admin: 09/12/17 21:14 Dose: 0.5 mg Dextrose (Dextrose 50% Inj) 50 ml IV STAT PRN; Protocol PRN Reason: Hypoglycemia Protocol Docusate Sodium (Colace) 100 mg PO BID [facility] Last Admin: 09/13/17 09:48 Dose: 100 mg Doxycycline Hyclate (Doryx) 100 mg PO Q12 KEITH PRN Reason: Protocol Stop: 09/19/17 22:01 Last Admin: 09/13/17 09:48 Dose: 100 mg Duloxetine HCl (Cymbalta) 60 mg PO DAILY [facility] Last Admin: 09/13/17 09:48 Dose: 60 mg Meropenem (Merrem Iv 1 Gm Premix) 50 mls @ 100 mls/hr IVPB Q8 KEITH PRN Reason: Protocol Stop: 09/19/17 22:01 Last Admin: 09/13/17 13:45 Dose: 100 mls/hr Dextrose (Dextrose 5% In Water 1000 Ml) 1,000 mls @ 0 mls/hr IV .Q0M PRN; Protocol; Per Protocol PRN Reason: Hypoglycemia Protocol Levothyroxine Sodium (Synthroid) 175 mcg PO 0600 [facility] Last Admin: 09/13/17 05:02 Dose: 175 mcg Metoprolol Tartrate (Lopressor) 25 mg PO BID [facility] Last Admin: 09/13/17 09:48 Dose: 25 mg Pantoprazole Sodium (Protonix Ec Tab) 40 mg PO DAILY [facility] Last Admin: 09/13/17 09:48 Dose: 40 mg Pregabalin (Lyrica) 50 mg PO DAILY [facility] Last Admin: 09/13/17 09:48 Dose: 50 mg Sucralfate (Carafate Oral Susp) 1 gm PO BID [facility] Last Admin: 09/13/17 09:47 Dose: 1 gm Tramadol HCl (Ultram) 50 mg PO Q8 PRN PRN Reason: Pain, moderate (4-7) Last Admin: 09/12/17 03:23 Dose: 50 mg Zolpidem Tartrate (Ambien) 5 mg PO HS PRN; Protocol PRN Reason: Insomnia Last Admin: 09/12/17 21:14 Dose: 5 mg - Labs Labs: 09/13/17 05:18 09/13/17 05:18 - Additional Findings Additional findings: - Constitutional Appears: Non-toxic, No Acute Distress - Head Exam Head Exam: ATRAUMATIC, NORMOCEPHALIC Additional comments: mild left-sided facial droop (Hx CVA, present on prior exams), but otherwise full movement, no slurred speech or drooling from left side of mouth - Eye Exam Eye Exam: EOMI, Normal appearance. absent: Conjunctival injection, Scleral icterus Pupil Exam: absent: Irregular, Unequal - ENT Exam ENT Exam: Mucous Membranes Moist. absent: Mucous Membranes Dry - Neck Exam Neck Exam: Full ROM, Normal Inspection - Respiratory Exam Respiratory Exam: Clear to Ausculation Bilateral, NORMAL BREATHING PATTERN. absent: Rales, Rhonchi, Wheezes - Cardiovascular Exam Cardiovascular Exam: Irregular Rhythm, +S1, +S2. absent: Bradycardia, Tachycardia, REGULAR RHYTHM, JVD, RRR, +S4, Murmur - GI/Abdominal Exam GI & Abdominal Exam: Soft, Normal Bowel Sounds. absent: Distended, Firm, Rigid , Tenderness - Extremities Exam Extremities Exam: Full ROM (ambulating in room with IV pole, appears to have normal but cautious/slow gait), Normal Inspection. absent: Calf Tenderness, Pedal Edema, Tenderness - Neurological Exam Neurological Exam: -awake and alert, following all commands, moving all extremities spontaneously -mild left-sided weakness as compared to right (left extremities 4+/5 strength, right extremities 5/5 strength), mild left facial droop but otherwise full movement of muscles, no slurred speech or drooling, controlling airway and protecting - Psychiatric Exam Psychiatric exam: Normal Affect, Normal Mood - Skin Skin Exam: Dry, Intact, Normal Color, Warm Assessment and Plan - Assessment and Plan (Free Text) Assessment: This is a 52 yo F with PMH of atrial fibrillation, SHERRY, gastric bypass surgery, and hypercoagulable state on eliquis who presented to [facility] ER with nausea, 1x emesis, generalized weakness and borderline fever (Tmax at home reported as 100.2F). Plan: Emesis and nausea - resolved Left sided deficits - chronic, 2/2 prior CVA SHERRY Hypercoagulable state on Eliquis Obesity Hypothyroidism Bipolar disorder Hx gastric bypass Elevated WBCs - improved -ID consulted, recs appreciated, continue Doxy/Merrem, Vanco d/c;, can be converted to PO Doxy and Augmentin for 3-5 days when ready for discharge -procal negative and flu negative, WBCs trending down (7.3 today), afebrile, blood cultures negative at 72 hrs, urine cx negative, sputum positive for yeast -Cardio consulted, appreciate all recs -CXR in ED notable for bi-basilar opacities, likely atelectasis -GI consulted, recs appreciated -Pulm consulted, appreciate all recs -Endocrine consulted for repeated borderline hypoglycemic episodes, continue hypoglycemic protocol -Continue home eliquis -Continue psych medications -Continue to monitor clinical status, daily labs Case reviewed and discussed at length with attending, Dr. Malave
--- NOTE | 2017-09-13 15:44 | PN ---
DATE: 09/13/2017 PULMONARY PROGRESS NOTE REFERRING PHYSICIAN: Ronal Kahn MD. SUBJECTIVE: She is lying in the bed, head at 45 degrees. Night was unremarkable. Feels better. Decreased cough. Decreased shortness of breath. No chest pain. No nausea. No vomiting. No diarrhea. No leg pain or leg swelling. OBJECTIVE: GENERAL: In no acute distress. VITAL SIGNS: Temperature is 98, heart rate is 76, respiratory rate is 20, blood pressure 114/80, pulse ox 99% on room air. HEENT: Moist mucous membrane. Crowded airway. Mallampati score is four. NECK: Supple. No JVD. LUNGS: Have a fair airflow with rhonchi. HEART: S1 and S2. ABDOMEN: Soft, nontender. No organomegaly. EXTREMITIES: No edema. NEUROLOGIC: Awake and alert. Follows simple command. MEDICATIONS: Reviewed and shows the patient is on Abilify 30 mg at bedtime, Ambien 5 mg at bedtime p.r.n., Brovana inhaled twice a day, Carafate 1 g twice a day, Colace 100 mg twice a day, Cymbalta 60 mg daily, doxycycline 100 mg twice a day, Eliquis 5 mg twice a day, Klonopin 0.5 mg three times a day p.r.n., Lipitor 10 mg daily, metoprolol tartrate 25 mg twice a day, Lyrica 50 mg p.o. daily, Merrem 1 g IV every 8 hours, Protonix 40 mg daily, Pulmicort inhaled twice a day, Synthroid 175 mcg daily, Ultram 50 mg every 8 hours p.r.n. LABORATORY DATA: Shows hemoglobin 10.3, hematocrit 32.3, WBC 7.3, platelet is 243. Sodium 143, potassium 2.9, chloride 110, bicarbonate 25, BUN 9, creatinine 0.8, glucose is 100, calcium is 9.2, phosphorus 3.6, magnesium 1.9, AST is 28, ALT 20, alk phos is 82, albumin is 3.1. Microbiology: Sputum cultures have some yeast. Blood and urine culture have been negative. IMPRESSION AND PLAN: Chronic obstructive lung disease, atrial fibrillation, history of gastric bypass surgery in the remote past, may have sleep apnea syndrome, claustrophobic, schizophrenia, depression, urinary tract infection, acute bronchitis. Pulmonary point of view, she is doing okay. Keep head at 45 degrees. Continue bronchodilator, sleep apnea precaution. Careful with sedation. Gastric prophylaxis. Deep venous thrombosis prophylaxis. Antibiotics as per Infectious Diseases. Fall precaution. Thank you and we will follow with you. Gisselle Sears MD
--- NOTE | 2017-09-13 18:41 | PN ---
DATE: 09/13/2017 REASON FOR THE CONSULTATION: Followup cardiac evaluation, history of paroxysmal atrial fibrillation, admitted with sepsis. SUBJECTIVE: The patient denies any chest pain, shortness of breath, any palpitation. OBJECTIVE: GENERAL: Not in any apparent distress. She is getting IV fluids 100 mL an hour. VITAL SIGNS: Temperature afebrile, heart rate 73, blood pressure 114/80. HEENT: PERRLA, intact. NECK: Supple. No carotid bruit. No thyromegaly. CHEST: Clear to auscultation. HEART: S1 and S2 regular. ABDOMEN: Soft. EXTREMITIES: Clubbing and cyanosis negative. LABORATORY DATA: Blood workup as follows; WBC 7.3, hemoglobin 10.3, hematocrit 32.3, platelet count 243. Chemistry shows sodium 143, potassium 3.9, chloride 110, carbon dioxide 25, anion gap of 15, BUN 9, creatinine 0.8, total protein 6, albumin , albumin and globulin ratio 1.0. IMPRESSION: Fever, sepsis, paroxysmal atrial fibrillation. So far blood cultures are negative. No evidence of acute myocardial infarction. Recent noninvasive cardiac workup is negative including a stress test dated 08/18/2017 was negative. Previous echocardiogram dated 11/18/2016, ejection fraction 55%-60%, trace aortic regurgitation, [id number] mitral regurgitation, [id number] tricuspid regurgitation, right ventricular systolic pressure 26. RECOMMENDATION: Continue follow up blood culture. Continue antibiotic. Continue beta luisa. Continue Eliquis. Discontinue telemetry. CVS status is stable. The patient is getting IV fluid because the patient is getting hypoglycemia, possibly secondary to sepsis. We will leave IV fluid as per hypoglycemia protocol. Once stabilized, blood sugar goes up, we will consider to discontinue IV fluid. Thank you, Dr. Ronal Kahn for providing us the opportunity in taking care of the patient, Julieth Szymanski. Gisselle Parker MD
[2017-09-14] MEDS: Meropenem IV 1 gm in NS 50 ML IVPB SCH ×2 (05:31→13:41)
[2017-09-14 06:10] LABS: BASO # 0.03 K/mm3 (0.0-2.0); BASO % 0.4 % (0.0-3.0); EOS # 0.3 (0.0-0.7); EOS % 3.2 % (1.5-5.0); GRAN # 4.11 (1.4-6.5); GRAN % 52.6 % (50.0-68.0); HEMOGLOBIN 10.6 g/dL (12.0-16.0); LYMPH # 2.8 (1.2-3.4); LYMPH % 35.5 % (22.0-35.0); MEAN CELL VOLUME 91.1 fl (80.0-105.0); MEAN CORPUSCULAR HEMOGLOBIN 29.4 pg (25.0-35.0); MEAN CORPUSCULAR HGB CONC 32.3 g/dl (31.0-37.0); MEAN PLATELET VOLUME 10.1 fl (7.0-11.0); MONO # 0.7 (0.1-0.6); MONO % 8.3 % (1.0-6.0); RBC 3.6 10^6/uL (3.5-6.1); RED CELL DISTRIBUTION WIDTH 14.7 % (11.5-14.5); WHITE BLOOD COUNT 7.8 10^3/ul (4.5-11.0)
[2017-09-14] MEDS ORDERED: Levothyroxine 175 MCG TAB PO SCH (06:30)
[2017-09-14 06:44] LABS: T4 10.2 ug/dL (5.5-11.0)
--- NOTE | 2017-09-14 06:46 | CON ---
DATE: ENDOCRINOLOGY CONSULTATION LOCATION: Room 369. HISTORY OF PRESENT ILLNESS: This is a 52-year-old female with known history of type 2 diabetes, hypertension, super morbid obesity with the previous gastric bypass surgery and is now being referred for endocrine evaluation because of persistent hypoglycemic episodes as noted thereof. PAST MEDICAL HISTORY: History of super morbid obesity with weights over 400 pounds about 20 years ago and underwent a gastric bypass surgery in the year 1999 and has since then been taken off all insulin and oral hypoglycemic therapy as noted. At this admission, she has had frequent hypoglycemic episodes despite optimal oral intake. However, she has not been really given the frequent small feedings as recommended and has been getting only three meals and a bedtime snack as noted. History of type 2 diabetes, currently off all oral hypoglycemic therapy and insulin therapy at the present time. History of diabetic polyneuropathy and peripheral arterial vasculopathy as noted. She has a previous cerebrovascular event and recurrent TIA, currently on oral anticoagulant therapy with Eliquis medications as given. She apparently has also a hypercoagulable state as noted. History of chronic atrial fibrillation and hypertensive cardiovascular disease and dyslipidemia, history of chronic iron deficiency anemia and with this admission, has a significant drop of a hemoglobin of about 2 g and currently on iron infusion is given as noted. She is also undergoing GI workup as noted. There is also significant history of a chronic schizoaffective disorder and schizophrenia, currently on psychotropic medications as given. She also has significant history of hypothyroidism, on levothyroxine replacement therapy at 175 mcg daily as ordered. 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 She was last seen by me about over 20 years ago for diabetic management at that time. She also has recent fibromyalgia and apparent history of rheumatoid arthritis, but first she has to be verified as noted. She has also chronic gastritis and underwent a recent upper and lower endoscopy as noted. FAMILY HISTORY: Positive for hypertension and heart disease. SOCIAL HISTORY: Patient has a supportive family. No known substance use. REVIEW OF SYSTEMS: Admits to generalized body weakness with easy fatigability and tiredness and suboptimal energy level. Also admits to dizziness and lightheadedness, worse on the day of admission. Also admits to episodic bouts of hypersomnolence and lethargy, especially with symptomatic bouts of hypoglycemia as noted. No chest pains or palpitations, but admits to progressive shortness of breath especially on exertion. Her oral intake has been variable, but otherwise improved, but has yet to receive the frequent small feedings as ordered. At home, she actually takes 8 small meals throughout today as noted. No recent alterations of bowel and urinary patterns. PHYSICAL EXAMINATION: GENERAL: She is an overweight female, in no apparent distress. VITAL SIGNS: Blood pressure of 140/80, pulse of 70 beats per minute and regular, temperature 99, respirations 20, height is 5 feet 6 inches, weight is 230 pounds. HEENT: Head normocephalic. Eyes anicteric with pink conjunctivae. Funduscopy not possible at this time. Ears, nose and throat otherwise normal. NECK: Supple. Thyroid gland is normal in size. No carotid bruits or cervical adenopathy. CARDIOPULMONARY: Some adynamic precordium. S1, S2 is regular. Lungs are clear to auscultation. ABDOMEN: Obese, soft with positive bowel sounds. EXTREMITIES: No peripheral edema. Pulses are +2 bilaterally. LABORATORY DATA: Hematology showed a WBC of 7.3, hemoglobin of 10.3, hematocrit of 32, MCV 92, platelets 243. Chemistry showed a BUN of 9, sodium 143, potassium 3.9, chloride 110, CO2 25, glucose 100 and creatinine 0.8. Her glucose levels have ranged from 65 to 73 and 77 and 88 mg/dL. Her latest thyroid studies showed a TSH of 0.26, which is suppressed and low as noted. ASSESSMENT: This is a 52-year-old female with symptomatic hypoglycemia and associated neuroglycopenic and hyperadrenergic manifestations of the same, which most likely is related to the so-called dumping syndrome, very common in patients who have undergone gastric bypass surgery with supervening functional hypoglycemia as expected thereof. Moreover, with the underlying and remaining morbid obesity, would expect also increased insulin resistance and despite endogenous hyperinsulinemia as expected thereof. Although she is clinically euthyroid, but biochemically has evidence of suppressed TSH levels, some over replacement of levothyroxine medications as given. With recent weight loss, would expect lower thyroid hormone requirements thereof. PLAN OF MANAGEMENT: Would highly recommend a high-protein, low-fat, low-carb diet with frequent small feedings, at least for 6 frequent small feedings, with breakfast, midmorning snack, lunch, mid afternoon snack, dinner and a bedtime snack as ordered. This will prevent surges of the endogenous insulin levels and supervening symptomatic bouts of functional hypoglycemia otherwise, expected with a dumping syndrome in patients who have gastric bypass surgery. We will obtain a baseline serum cortisol and ACTH level and also a comprehensive thyroid hormonal profile with a total and free T4 and TSH to be obtained tomorrow morning. We will obtain serial chemistries and supplement accordingly as needed. We will also lower the levothyroxine to 125 mcg once daily before breakfast as ordered. We will obtain serial chemistries and serial thyroid studies accordingly. Genesis Salas MD
[2017-09-14 07:16] LABS: ALBUMIN 3.2 g/dL (3.0-4.8); ALT/SGPT 28 U/L (7-56); AST/SGOT 28 U/L (14-36); BLOOD UREA NITROGEN 12 mg/dL (7-21); CALCIUM 9.4 mg/dL (8.4-10.5); GFR AFRICAN-AMERICAN > 60; GFR NON-AFRICAN AMERICAN > 60
[2017-09-14] MEDS: Budesonide 0.5 mg/2 ml Inhal Susp UD IH SCH (07:28)
[2017-09-14] MEDS: Arformoterol 15 mcg/2 ml Inh Sol IH SCH (07:28)
[2017-09-14] MEDS ORDERED: Levothyroxine 125 MCG TAB PO SCH (07:30)
[2017-09-14] MEDS: Pantoprazole 40 mg EC Tab PO SCH (10:11)
[2017-09-14] MEDS: Sucralfate 1 gm/10 ml Oral Susp UD PO SCH (10:11)
[2017-09-14 10:12] VITALS: BP 129/79; PULSE 65; RESP 18; TEMP 98.3; O2SAT 96
--- NOTE | 2017-09-14 10:28 | CP.PCM.PN ---
Subjective - Date & Time of Evaluation Date of Evaluation: 09/14/17 Time of Evaluation: 09:20 - Subjective Subjective: Heme-onc Progress Note, Caden Greene DO, PGY-2 IM This is a 52 yo F with PMH of atrial fibrillation, SHERRY, gastric bypass surgery, and hypercoagulable state on eliquis who presented to [facility] ER with nausea, 1x emesis, generalized weakness and borderline fever (Tmax at home reported as 100.2F). Patient seen at bedside today. Resting well, reports continued improvement in symptoms, denies any acute complaints at time of exam. Reports an episode of emesis overnight, non-bloody/non-bilious, but otherwise feels well and is tolerating her PO intake. No fevers or chills. Reported to have multiple hypoglycemic readings since yesterday despite being on hypoglycemia protocol; denies any episodes of syncope/near-syncope, diaphoresis, dizziness, or palpitations. Objective - Vital Signs/Intake and Output Vital Signs (last 24 hours): Temp Pulse Resp BP Pulse Ox 98.3 F 65 18 129/79 96 09/14/17 10:11 09/14/17 10:11 09/14/17 10:11 09/14/17 10:11 09/14/17 10:11 Intake and Output: 09/14/17 09/14/17 06:59 18:59 Intake Total 360 480 Balance 360 480 - Medications Medications: Current Medications Apixaban (Eliquis) 5 mg PO BID KEITH PRN Reason: Protocol Last Admin: 09/14/17 10:11 Dose: 5 mg Arformoterol Tartrate (Brovana) 15 mcg IH [id number] KEITH Last Admin: 09/14/17 07:28 Dose: 15 mcg Aripiprazole (Abilify) 30 mg PO HS KEITH PRN Reason: Protocol Last Admin: 09/13/17 21:20 Dose: 30 mg Atorvastatin Calcium (Lipitor) 10 mg PO DIN KEITH Last Admin: 09/13/17 17:48 Dose: 10 mg Budesonide (Pulmicort Respules) 0.5 mg IH [id number] KEITH Last Admin: 09/14/17 07:28 Dose: 0.5 mg Clonazepam (Klonopin) 0.5 mg PO TID PRN; Protocol PRN Reason: Agitation Last Admin: 09/14/17 00:34 Dose: 0.5 mg Dextrose (Dextrose 50% Inj) 50 ml IV STAT PRN; Protocol PRN Reason: Hypoglycemia Protocol Docusate Sodium (Colace) 100 mg PO BID [facility] Last Admin: 09/14/17 10:12 Dose: 100 mg Doxycycline Hyclate (Doryx) 100 mg PO Q12 KEITH PRN Reason: Protocol Stop: 09/19/17 22:01 Last Admin: 09/14/17 10:12 Dose: 100 mg Duloxetine HCl (Cymbalta) 60 mg PO DAILY [facility] Last Admin: 09/14/17 10:11 Dose: 60 mg Meropenem (Merrem Iv 1 Gm Premix) 50 mls @ 100 mls/hr IVPB Q8 KEITH PRN Reason: Protocol Stop: 09/19/17 22:01 Last Admin: 09/14/17 05:31 Dose: 100 mls/hr Dextrose (Dextrose 5% In Water 1000 Ml) 1,000 mls @ 0 mls/hr IV .Q0M PRN; Protocol; Per Protocol PRN Reason: Hypoglycemia Protocol Levothyroxine Sodium (Synthroid) 125 mcg PO ACB [facility] Last Admin: 09/14/17 09:09 Dose: 125 mcg Metoprolol Tartrate (Lopressor) 25 mg PO BID [facility] Last Admin: 09/14/17 10:11 Dose: 25 mg Pantoprazole Sodium (Protonix Ec Tab) 40 mg PO DAILY [facility] Last Admin: 09/14/17 10:11 Dose: 40 mg Pregabalin (Lyrica) 50 mg PO DAILY [facility] Last Admin: 09/14/17 10:11 Dose: 50 mg Sucralfate (Carafate Oral Susp) 1 gm PO BID [facility] Last Admin: 09/14/17 10:11 Dose: 1 gm Tramadol HCl (Ultram) 50 mg PO Q8 PRN PRN Reason: Pain, moderate (4-7) Last Admin: 09/12/17 03:23 Dose: 50 mg Zolpidem Tartrate (Ambien) 5 mg PO HS PRN; Protocol PRN Reason: Insomnia Last Admin: 09/13/17 21:20 Dose: 5 mg - Labs Labs: 09/14/17 05:55 09/14/17 05:55
--- NOTE | 2017-09-14 11:27 | CP.PCM.DIS ---
Provider - Provider Date of Admission: 09/10/17 13:41 Attending physician: Ronal Kahn MD Primary care physician: Reji Butler MD Consults: ID: Dianna Pulm: Orion Endo: Cam Cardio: Keith GI: Daniel IR: Ricky Arellano PMD: Luke Time Spent in preparation of Discharge (in minutes): 35 Diagnosis - Discharge Diagnosis (1) Hemoglobin drop Status: Resolved Priority: High (2) High risk for sepsis Status: Resolved Priority: High (3) Weakness Status: Chronic Priority: Medium (4) Abdominal pain Status: Resolved Priority: Medium (5) Nausea and vomiting Status: Resolved Priority: High Hospital Course - Lab Results Lab Results: Micro Results 09/10/17 20:15 Sputum Gram Stain - Final 09/10/17 20:15 Sputum Sputum Culture - Final Yeast Species 09/10/17 18:20 Urine Urine Culture - Final No Growth (<1,000 CFU/ML) Most Recent Lab Values WBC 7.8 10^3/ul (4.5-11.0) 09/14/17 05:55 RBC 3.60 10^6/uL (3.5-6.1) 09/14/17 05:55 Hgb 10.6 g/dL (12.0-16.0) L 09/14/17 05:55 Hct 32.8 % (36.0-48.0) L 09/14/17 05:55 MCV 91.1 fl (80.0-105.0) 09/14/17 05:55 MCH 29.4 pg (25.0-35.0) 09/14/17 05:55 MCHC 32.3 g/dl (31.0-37.0) 09/14/17 05:55 RDW 14.7 % (11.5-14.5) H 09/14/17 05:55 Plt Count 276 10^3/uL (120.0-450.0) 09/14/17 05:55 MPV 10.1 fl (7.0-11.0) 09/14/17 05:55 Gran % 52.6 % (50.0-68.0) 09/14/17 05:55 Lymph % (Auto) 35.5 % (22.0-35.0) H 09/14/17 05:55 [place] % (Auto) 8.3 % (1.0-6.0) H 09/14/17 05:55 Eos % (Auto) 3.2 % (1.5-5.0) 09/14/17 05:55 Baso % (Auto) 0.4 % (0.0-3.0) 09/14/17 05:55 Gran # 4.11 (1.4-6.5) 09/14/17 05:55 Lymph # (Auto) 2.8 (1.2-3.4) 09/14/17 05:55 [place] # (Auto) 0.7 (0.1-0.6) H 09/14/17 05:55 Eos # (Auto) 0.3 (0.0-0.7) 09/14/17 05:55 Baso # (Auto) 0.03 K/mm3 (0.0-2.0) 09/14/17 05:55 Neutrophils % (Manual) 92 % (50.0-70.0) H 09/10/17 10:50 Band Neutrophils % 2 % (0-2) 09/10/17 10:50 Lymphocytes % (Manual) 4 % (22.0-35.0) L 09/10/17 10:50 Monocytes % (Manual) 2 % (1.0-6.0) 09/10/17 10:50 Platelet Evaluation Normal (NORMAL) 09/10/17 10:50 pO2 174 mm/Hg (30-55) H 09/10/17 10:50 VBG pH 7.46 (7.32-7.43) H 09/10/17 10:50 VBG pCO2 37.0 (40-60) L 09/10/17 10:50 VBG HCO3 26.3 mmol/l (21-28) 09/10/17 10:50 VBG Total CO2 27.4 mmol.L (22-28) 09/10/17 10:50 VBG O2 Sat (Calc) 100.0 % (40-65) H 09/10/17 10:50 VBG Base Excess 2.5 mmol/L (0.0-2.0) H 09/10/17 10:50 VBG Potassium 3.7 mmol/L (3.6-5.2) 09/10/17 10:50 Sodium 141.0 mmol/L (132-148) 09/10/17 10:50 Chloride 110.0 mmol/L (98-107) H 09/10/17 10:50 Glucose 98 mg/dl (65-105) 09/10/17 10:50 Lactate 0.9 mmol/L (0.7-2.1) 09/10/17 10:50 FiO2 21.0 % 09/10/17 10:50 Sodium 143 mmol/L (132-148) 09/14/17 05:55 Potassium 4.0 mmol/L (3.6-5.0) 09/14/17 05:55 Chloride 106 mmol/L (98-107) 09/14/17 05:55 Carbon Dioxide 29 mmol/L (21-33) 09/14/17 05:55 Anion Gap 12 (10-20) 09/14/17 05:55 BUN 12 mg/dL (7-21) 09/14/17 05:55 Creatinine 0.8 mg/dl (0.7-1.2) 09/14/17 05:55 Est GFR ( Amer) > 60 09/14/17 05:55 Est GFR (Non-Af Amer) > 60 09/14/17 05:55 POC Glucose (mg/dL) 69 mg/dL (65-110) 09/14/17 07:22 Random Glucose 73 mg/dL (70-110) 09/14/17 05:55 Calcium 9.4 mg/dL (8.4-10.5) 09/14/17 05:55 Phosphorus 3.4 mg/dL (2.5-4.5) 09/14/17 05:55 Magnesium 1.9 mg/dL (1.7-2.2) 09/14/17 05:55 Total Bilirubin 0.2 mg/dL (0.2-1.3) 09/14/17 05:55 Direct Bilirubin 0.3 mg/dL (0.0-0.4) 09/11/17 06:20 AST 28 U/L (14-36) 09/14/17 05:55 ALT 28 U/L (7-56) 09/14/17 05:55 Alkaline Phosphatase 78 U/L (38-126) 09/14/17 05:55 NT-Pro-B Natriuret Pep 1010 pg/mL (0-450) H 09/10/17 10:50 Total Protein 6.3 g/dL (5.8-8.3) 09/14/17 05:55 Albumin 3.2 g/dL (3.0-4.8) 09/14/17 05:55 Globulin 3.1 gm/dL 09/14/17 05:55 Albumin/Globulin Ratio 1.0 (1.1-1.8) L 09/14/17 05:55 Triglycerides 66 mg/dL (35-160) 09/11/17 06:20 Cholesterol 174 mg/dL (130-200) 09/11/17 06:20 LDL Cholesterol Direct 71 mg/dL (0-129) 09/11/17 06:20 HDL Cholesterol 71 mg/dL (29-60) H 09/11/17 06:20 Procalcitonin 0.09 NG/ML (0.19-0.49) L 09/10/17 14:00 Thyroxine (T4) 10.2 ug/dL (5.5-11.0) 09/14/17 05:55 TSH 3rd Generation 0.83 mIU/mL (0.46-4.68) 09/14/17 05:55 Venous Blood Potassium 3.7 mmol/L (3.6-5.2) 09/10/17 10:50 Urine Color Yellow (YELLOW) 09/10/17 13:20 Urine Appearance Sl cloudy (CLEAR) 09/10/17 13:20 Urine pH 6.0 (4.7-8.0) 09/10/17 13:20 Ur Specific [facility] 1.015 (1.005-1.035) 09/10/17 13:20 Urine Protein Negative mg/dL (<30 mg/dL) 09/10/17 13:20 Urine Glucose (UA) Negative mg/dL (NEGATIVE) 09/10/17 13:20 Urine Ketones Negative mg/dL (NEGATIVE) 09/10/17 13:20 Urine Blood Large (NEGATIVE) H 09/10/17 13:20 Urine Nitrate Negative (NEGATIVE) 09/10/17 13:20 Urine Bilirubin Negative (NEGATIVE) 09/10/17 13:20 Urine Urobilinogen 0.2 E.U./dL (<1 E.U./dL) 09/10/17 13:20 Ur Leukocyte Esterase Negative Alicia/uL (NEGATIVE) 09/10/17 13:20 Urine RBC Tntc /hpf (0-2) 09/10/17 13:20 Urine WBC 2 - 5 /hpf (0-6) 09/10/17 13:20 Ur Epithelial Cells 4 - 5 /hpf (0-5) 09/10/17 13:20 Urine Bacteria Mod (NEG) 09/10/17 13:20 Vancomycin Trough 16.0 ug/mL (5.0-10.0) H* 09/12/17 15:54 Influenza Typ A,B (EIA) Negative for flu a/b (NEGATIVE) 09/10/17 11:25 - Hospital Course Hospital Course: This is a 52 yo F with PMH of atrial fibrillation, SHERRY, gastric bypass surgery, and hypercoagulable state on eliquis who presented to [facility] with nausea, 1x emesis, generalized weakness and borderline fever (Tmax at home reported as 100.2F), with concern for possible sepsis. While here, the patient was seen by Pulm, ID, Endocrine, GI, Cardio, and IR. As per GI, her hemoglobin drop after admission was likely dilutional in the setting of fluid rehydration after reports nausea/emesis and decreased PO intake prior to admission, and has remained stable since, so no need for scoping. As per Pulm, she was continued on her bronchodilator and antibiotic therapy, no acute interventions required. As per Cardio, she was continued on her anticoagulation and low-dose beta luisa. As per ID, given negative cultures, she was switched to PO Doxycycline and Augmentin for 4 days after receiving 2 days of IV Vancomycin, and 5 days of IV Merrem and IV Doxycycline; cultures negative. As per Endo, her Synthroid dose was decreased to 125mcg daily in light of weight lose relative to weight when started on synthroid, and was switched to a low-fat, low -carb, high protein diet with 6 small meals daily, given her persistent hypoglycemia. Scripts for her Augmentin, Doxycyline, and new dose of synthroid were electronically transmitted to the in-house outpatient pharmacy to be available to her at time of discharge, and she was told to resume all other home medications as prescribed. She was instructed to follow up with her outpatient Endocrinology, and with her PMD within 1 week of discharge. Patient expressed understanding and agreement with these instructions. All questions were answered to her satisfaction, and then patient was discharged to home. Patient reviewed and discussed at length with attending, Dr. Malave. Discharge Exam - Additional Findings Additional findings: - Constitutional Appears: Non-toxic, No Acute Distress - Head Exam Head Exam: ATRAUMATIC, NORMOCEPHALIC Additional comments: mild left-sided facial droop (Hx CVA, present on prior exams), but otherwise full movement, no slurred speech or drooling from left side of mouth - Eye Exam Eye Exam: EOMI, Normal appearance. absent: Conjunctival injection, Scleral icterus Pupil Exam: absent: Irregular, Unequal - ENT Exam ENT Exam: Mucous Membranes Moist. absent: Mucous Membranes Dry - Neck Exam Neck Exam: Full ROM, Normal Inspection - Respiratory Exam Respiratory Exam: Clear to Ausculation Bilateral, NORMAL BREATHING PATTERN. absent: Rales, Rhonchi, Wheezes - Cardiovascular Exam Cardiovascular Exam: Irregular Rhythm, +S1, +S2. absent: Bradycardia, Tachycardia, REGULAR RHYTHM, JVD, RRR, +S4, Murmur - GI/Abdominal Exam GI & Abdominal Exam: Soft, Normal Bowel Sounds. absent: Distended, Firm, Rigid , Tenderness - Extremities Exam Extremities Exam: Full ROM (ambulating in room with IV pole, appears to have normal but cautious/slow gait), Normal Inspection. absent: Calf Tenderness, Pedal Edema, Tenderness - Neurological Exam Neurological Exam: -awake and alert, following all commands, moving all extremities spontaneously -mild left-sided weakness as compared to right (left extremities 4+/5 strength, right extremities 5/5 strength), mild left facial droop but otherwise full movement of muscles, no slurred speech or drooling, controlling airway and protecting - Psychiatric Exam Psychiatric exam: Normal Affect, Normal Mood - Skin Skin Exam: Dry, Intact, Normal Color, Warm Discharge Plan - Discharge Medications Prescriptions: Amoxicillin/Clavulanate [Augmentin 875 MG-125 MG] 1 tab PO BID #8 tab Doxycycline Hyclate 100 mg PO BID #8 capsule Levothyroxine [Levoxyl] 0.125 mg PO ACB #30 tab - Follow Up Plan Condition: STABLE Disposition: HOME/ ROUTINE Instructions: Weakness (ED) Additional Instructions: Please take all new medications as prescribed Please stop taking your old dose of Synthroid, you have been given a new dose of 125mcg to take daily, at the instruction of the Coffee Urn Attendant. Please resume all other home meds (excluding your home synthroid) as previously prescribed. Please follow up with your Coffee Urn Attendant within 1 month, and with your PMD within 1 week of discharge. Please return to the hospital if you experience new or concerning symptoms. Referrals: Reji Butler MD [Primary Care Provider] -
[2017-09-14 11:39] LABS: PROLACTIN < 1.4 ng/mL (3.0-18.9)
--- NOTE | 2017-09-14 15:39 | CP.PCM.PN ---
Subjective - Date & Time of Evaluation Date of Evaluation: 09/14/17 Time of Evaluation: 11:10 - Subjective Subjective: Comfortable, no fevers, not in distress. Objective - Vital Signs/Intake and Output Vital Signs (last 24 hours): Temp Pulse Resp BP Pulse Ox 98.3 F 65 18 129/79 96 09/14/17 10:11 09/14/17 10:11 09/14/17 10:11 09/14/17 10:11 09/14/17 10:11 Intake and Output: 09/14/17 09/14/17 06:59 18:59 Intake Total 360 480 Balance 360 480 - Medications Medications: Current Medications Apixaban (Eliquis) 5 mg PO BID KEITH PRN Reason: Protocol Last Admin: 09/14/17 10:11 Dose: 5 mg Arformoterol Tartrate (Brovana) 15 mcg IH [id number] [facility] Last Admin: 09/14/17 07:28 Dose: 15 mcg Aripiprazole (Abilify) 30 mg PO HS KEITH PRN Reason: Protocol Last Admin: 09/13/17 21:20 Dose: 30 mg Atorvastatin Calcium (Lipitor) 10 mg PO DIN [facility] Last Admin: 09/13/17 17:48 Dose: 10 mg Budesonide (Pulmicort Respules) 0.5 mg IH [id number] [facility] Last Admin: 09/14/17 07:28 Dose: 0.5 mg Clonazepam (Klonopin) 0.5 mg PO TID PRN; Protocol PRN Reason: Agitation Last Admin: 09/14/17 00:34 Dose: 0.5 mg Dextrose (Dextrose 50% Inj) 50 ml IV STAT PRN; Protocol PRN Reason: Hypoglycemia Protocol Docusate Sodium (Colace) 100 mg PO BID [facility] Last Admin: 09/14/17 10:12 Dose: 100 mg Doxycycline Hyclate (Doryx) 100 mg PO Q12 KEITH PRN Reason: Protocol Stop: 09/19/17 22:01 Last Admin: 09/14/17 10:12 Dose: 100 mg Duloxetine HCl (Cymbalta) 60 mg PO DAILY [facility] Last Admin: 09/14/17 10:11 Dose: 60 mg Meropenem (Merrem Iv 1 Gm Premix) 50 mls @ 100 mls/hr IVPB Q8 KEITH PRN Reason: Protocol Stop: 09/19/17 22:01 Last Admin: 09/14/17 05:31 Dose: 100 mls/hr Dextrose (Dextrose 5% In Water 1000 Ml) 1,000 mls @ 0 mls/hr IV .Q0M PRN; Protocol; Per Protocol PRN Reason: Hypoglycemia Protocol Levothyroxine Sodium (Synthroid) 125 mcg PO ACB [facility] Last Admin: 09/14/17 09:09 Dose: 125 mcg Metoprolol Tartrate (Lopressor) 25 mg PO BID [facility] Last Admin: 09/14/17 10:11 Dose: 25 mg Pantoprazole Sodium (Protonix Ec Tab) 40 mg PO DAILY [facility] Last Admin: 09/14/17 10:11 Dose: 40 mg Pregabalin (Lyrica) 50 mg PO DAILY [facility] Last Admin: 09/14/17 10:11 Dose: 50 mg Sucralfate (Carafate Oral Susp) 1 gm PO BID [facility] Last Admin: 09/14/17 10:11 Dose: 1 gm Tramadol HCl (Ultram) 50 mg PO Q8 PRN PRN Reason: Pain, moderate (4-7) Last Admin: 09/12/17 03:23 Dose: 50 mg Zolpidem Tartrate (Ambien) 5 mg PO HS PRN; Protocol PRN Reason: Insomnia Last Admin: 09/13/17 21:20 Dose: 5 mg - Labs Labs: 09/14/17 05:55 09/14/17 05:55 - Constitutional Appears: Chronically Ill - Head Exam Head Exam: NORMAL INSPECTION - Eye Exam Eye Exam: Normal appearance - ENT Exam ENT Exam: Mucous Membranes Moist - Neck Exam Neck Exam: absent: Meningismus - Respiratory Exam Respiratory Exam: Decreased Breath Sounds - Cardiovascular Exam Cardiovascular Exam: +S1, +S2 - GI/Abdominal Exam GI & Abdominal Exam: Soft. absent: Tenderness Assessment and Plan - Assessment and Plan (Free Text) Plan: Assessment R/O severe sepsis from HCAP, with acute bronchitis history of sepsis due to left sided HCAP, slowly improving history of sepsis due to MRSA bacteremia, probably from port-a-cath S/P removal history of HCAP rheumatoid arthritis history of transient ischemic attack obstructive sleep apnea Morbid obesity with BMI 40 hypothyroidism bipolar disorder shcizoaffective disorder, S/P gastric bypass surgery Plan continue Doxycycline, Merrem day 5 and can switch to PO Doxycycline and augmentin for 3-5 days on discharge will continue to monitor clinically
--- NOTE | 2017-09-14 21:11 | PN ---
DATE: REASON FOR CONSULTATION: Followup cardiac evaluation, history of paroxysmal atrial fibrillation, admitted with sepsis. SUBJECTIVE: Patient denies any chest pain, shortness of breath, any palpitation. OBJECTIVE: GENERAL: Not in apparent distress. VITAL SIGNS: Examination as follows, temperature afebrile, heart rate 65, blood pressure 129/79. HEENT: PERRLA. Extraocular muscles intact. NECK: Supple. No carotid bruits or thyromegaly. CHEST: Clear to auscultation. HEART: S1 and S2 regular. ABDOMEN: Soft. EXTREMITIES: Clubbing and cyanosis negative. LABORATORY DATA: Blood workup as follows, WBC 7.8, hemoglobin 10.3, hematocrit 32.8, platelet count 276. Chemistry shows sodium 140, potassium 4, chloride 106, carbon dioxide of 20, anion gap of 12, BUN 12, creatinine 0.8. IMPRESSION: Sepsis; hypoglycemia, improved; paroxysmal atrial fibrillation, obesity. No evidence of acute myocardial infarction. Recent noninvasive cardiac workup including stress test dated 08/18/2017, was negative. Previous echocardiogram dated 11/18/ , ejection fraction 55% to 60%, trace aortic regurgitation, [id number]-[id number] mitral regurgitation, [id number] tricuspid regurgitation, right ventricular systolic pressure 26. RECOMMENDATION: Continue follow up blood culture. So far preliminary report for the blood culture is negative. Continue antibiotic. Continue Eliquis for atrial fibrillation. Continue atorvastatin. Continue metoprolol 25 mg. We will discontinue IV fluid to prevent fluid overload. We will follow with you. Thank you, Dr. Ronal Kahn for providing us the opportunity in taking care of patient, Julieth Szymanski. Gisselle Parker MD
--- NOTE | 2017-09-14 21:11 | PN ---
DATE: SUBJECTIVE: The patient is 52 years old, seen and examined, sitting in chair, seems to be comfortable. No nausea or vomiting. No diarrhea. Eating and tolerating. No fever, no chills. PHYSICAL EXAMINATION: VITAL SIGNS: The patient is afebrile, pulse 65, respirations 18, blood pressure 129/79. LUNGS: Bilateral good airflow. No rhonchi or crackle. HEART: S1 and S2 audible. ABDOMEN: Soft, nontender. No rebound, no guarding. NEUROLOGIC: The patient is awake, alert, oriented, communicative, ambulatory. EXTREMITIES: Bilateral leg, no edema. LABORATORY DATA: WBC 7.8, hemoglobin 10.6, hematocrit 32.8, platelet of 276. Chemistry: Blood sugar is 74. Blood cultures are negative. Urine culture is negative. Sputum has yeast species. X-ray of the shoulder is unremarkable. Cervical spine x-ray is unremarkable. ASSESSMENT: 1. Status post viral syndrome, improved. 2. Morbid obesity. 3. Oya-jezigwm-lkbxkrrmp diabetes. 4. Hypertension. 5. Status post gastric bypass surgery with questionable dumping syndrome. PLAN: The patient is being discharged home today. She is advised to have frequent small meals. Should be in high protein and low carb. We will follow up her electrolyte in a week. Reji Butler MD
--- NOTE | 2017-09-14 22:24 | PN ---
DATE: ENDOCRINOLOGY FOLLOWUP NOTE LOCATION: In room 369. SUBJECTIVE: This is a 52-year-old female with recent symptomatic hypoglycemic episodes and associated neuroglycopenic and hyperadrenergic manifestations of the same. Her glucose values today have ranged from 69 to 74 mg/dL. Her repeat chemistry shows a BUN of 12, sodium 143, potassium 4.0, chloride 106, CO2 of 29, glucose 73, and creatinine 0.8. Her thyroid study shows a T4 of 10.2 with a TSH of 0.83 and a prolactin level of less than 1.4 and a serum cortisol level of 9.0. ASSESSMENT: This is a 52-year-old female with known history of morbid obesity who underwent a gastric bypass surgery almost 20 years ago and presenting here with symptomatic episodes of the so called functional hypoglycemia related to her previous surgical procedure with the so-called dumping syndrome and the of hyperinsulinemia causing symptomatic episodes also of hypoglycemia, as noted thereof. She also has significant vitamin and nutrient deficiencies with chronically marked anemia, all related to the previous gastric bypass surgical procedure as noted. PLAN OF MANAGEMENT: We will modify her current way of eating and increase her to a high protein, meaning over 90 to 100 g daily, given as six to eight meals in small portions pretty much all day long as noted. We are waiting the reports of the hormonal assays with ACTH, cortisol levels obtained and other hormonal levels as ordered. We will highly recommend a frequent small feeding pattern at least of six meals a day meaning three main meals and three small snacks as indicated to optimize metabolic control. We will obtain serial chemistries and supplement accordingly needed. Serum C-peptide level and A1c values are still pending at this time. We will follow this. Genesis Salas MD
--- NOTE | 2017-09-15 08:38 | PQF SEPSIS ---
This form is a permanent part of the medical record DR. LOPEZ, Please verify if Sepsis was ruled in or ruled out. Clarification of your documentation is requested to better reflect the severity of illness and intensity of treatment of your patient. Indicators present [X] Temp < 96.8 or > 100.4 [X] WBC count > 12,000/mm3 or <000/mm3 or 10% immature neutrophils [X] Heart Rate > 90 [] Respiratory Rate > 20 [X] Fever or hypothermia [X] Chills [] Positive blood cultures [] Hypotension [] Metabolic acidosis (Elevated lactate level, anion gap or reduced blood pH) [] Acute confusion /Altered Mental Status [] Shock [] Other: [] Location in the medical record that reflects the above clinical findings: [] H&P; progress notes Treatment Provided: [] PHYSICIAN'S RESPONSE Based on your medical judgment of the clinical indicators outlined above, are you treating this patient for a known or suspected: [] Sepsis / Septicemia Please specify organism if known [] [x] SIRS (Systemic Inflammatory Response Syndrome) [] Severe Sepsis (Sepsis with Associated Organ Dysfunction) [] Fever of Unknown Origin [] Other, please indicate: [] [] If Unable to Determine, please check the box, sign and date. Present On Admission (POA) Indicator: [] Present at the time of admission [] Not present at the time of admission [] Clinically Undetermined In responding to this query, please exercise your independent professional judgment. The fact that a question is asked does not imply that any particular answer is desired or expected. Thank you for your clarification on this documentation. If you have any questions please call:[ ] * Thank you, [X ] RADHA shift nurse manager CAROL
[2017-09-15 19:20] LABS: C-PEPTIDE 1.67 ng/mL (0.80-3.85)
== END 2017-09-14 15:58 | disposition home or self-care (01) | DRG 866 ==
LOC: ED 10:00 → ERH 13:41 → 3RNO 15:38
PROVIDERS: ADMIT Family Medicine; ATTEND Family Medicine
PROC: 3E0F7GC Introduction of Other Therapeutic Substance into Respiratory Tract, Via Natural or Artificial Opening (ICD-10-PCS; principal; 2017-09-12)
DX: B34.9 Viral infection, unspecified (principal); R65.10 Systemic inflammatory response syndrome (SIRS) of non-infectious origin without acute organ dysfunction; D68.59 Other primary thrombophilia; E11.42 Type 2 diabetes mellitus with diabetic polyneuropathy; E11.649 Type 2 diabetes mellitus with hypoglycemia without coma; E66.01 Morbid (severe) obesity due to excess calories; Z68.41 Body mass index [BMI] 40.0-44.9, adult; J44.1 Chronic obstructive pulmonary disease with (acute) exacerbation; J44.0 Chronic obstructive pulmonary disease with (acute) lower respiratory infection; J20.9 Acute bronchitis, unspecified; D50.9 Iron deficiency anemia, unspecified; I48.0 Paroxysmal atrial fibrillation; M06.9 Rheumatoid arthritis, unspecified; G47.33 Obstructive sleep apnea (adult) (pediatric); E03.9 Hypothyroidism, unspecified; F25.9 Schizoaffective disorder, unspecified; K21.9 Gastro-esophageal reflux disease without esophagitis; F31.9 Bipolar disorder, unspecified; F40.240 Claustrophobia; E78.5 Hyperlipidemia, unspecified; I48.2 Chronic atrial fibrillation; I10 Essential (primary) hypertension; Z86.73 Personal history of transient ischemic attack (TIA), and cerebral infarction without residual deficits; Z87.01 Personal history of pneumonia (recurrent); Z86.14 Personal history of Methicillin resistant Staphylococcus aureus infection; Z79.01 Long term (current) use of anticoagulants; Z98.84 Bariatric surgery status

== ENCOUNTER 2018-01-04 11:32 | Emergency (ER) | payer MEDICARE, MEDICAID ==
[2018-01-04 11:33] VITALS: BMI 37.1
[2018-01-04 12:29] VITALS: RESP 18
--- NOTE | 2018-01-04 12:30 | ED PDOC ---
Arrival/HPI - General Chief Complaint: GI Problem Time Seen by Provider: 01/04/18 11:45 Historian: Patient - History of Present Illness Narrative History of Present Illness (Text): 01/04/18 12:2 52 year old, whose PMH includes hypertension, CVA, asthma, hypothyroidism, anemia, atrial fibrillation, pneumonia, and bipolar disorder, who presents to the emergency department complaining of vomiting since 6 days ago. Patient reports this symptom being associated with diarrhea, headache, fatigue, back pain, and mild cough. Patient states it is similar to previous symptoms of pneumonia. Patient denies chest pain, abdominal pain, fever, dizziness, dysuria , hematuria, or other compalints. PMD: Dr. Greene Time/Duration: < week Symptom Onset: Sudden Symptom Course: Unchanged Context: Home Past Medical History - Provider Review Nursing Documentation Reviewed: Yes - Past History Past History: No Previous - Infectious Disease Hx of Infectious Diseases: None - Tetanus Immunization Tetanus Immunization: Unknown - Reproductive Menopause: No - Cardiac Hx Hypertension: Yes - Pulmonary Hx Asthma: Yes Hx Pneumonia: Yes - Neurological HX Cerebrovascular Accident: Yes - HEENT Hx HEENT Disorder: Yes (eyeglasses) - Renal Hx Renal Disorder: Yes Hx Kidney Stones: Yes - Endocrine/Metabolic Hx Hypothyroidism: Yes - Hematological/Oncological Hx Anemia: Yes - Integumentary Other/Comment: mid chest steri strips intact loop recorded implanted, multiple round brown spots ble - Musculoskeletal/Rheumatological Hx Falls: No Hx Osteoporosis: Yes - Gastrointestinal Hx Gastrointestinal Disorders: Yes (gi bleed, obese) Hx Gastroesophageal Reflux: Yes - Genitourinary/Gynecological Hx Genitourinary Disorders: No - Psychiatric Hx Anxiety: Yes Hx Bipolar Disorder: Yes Hx Depression: Yes Hx Schizophrenia: Yes Hx Substance Use: No - Surgical History Hx Gastric Bypass Surgery: Yes (07/26/1999 235 lb weight loss) Other/Comment: R chest port for iron infusions and hydration. - Anesthesia Hx Anesthesia Reactions: No Hx Malignant Hyperthermia: No - Suicidal Assessment Feels Threatened In Home Enviroment: No Family/Social History - Physician Review Nursing Documentation Reviewed: Yes Family/Social History: Unknown Family HX Smoking Status: Never Smoked Hx Alcohol Use: No Hx Substance Use: No Hx Substance Use Treatment: No Allergies/Home Meds Allergies/Adverse Reactions: Allergies Iodinated Contrast- Oral and IV Dye [Iodinated Contrast Media - IV Dye] Allergy (Verified 08/17/17 18:34) RASH iodine Allergy (Verified 08/17/17 18:34) RASH meperidine Allergy (Verified 09/10/17 10:16) RASH Home Medications: Home Meds Medication Instructions Recorded Confirmed Pregabalin [Lyrica] 50 mg PO DAILY 04/07/15 09/10/17 Glucagon [Glucagen Diagnostic Kit] 1 mg IM PRN PRN 10/02/16 09/10/17 Pantoprazole [Protonix EC Tab] 40 mg PO DAILY 03/21/17 09/10/17 Enoxaparin [Lovenox] 90 mg SC DAILY 07/20/17 09/10/17 Review of Systems - Physician Review All systems were reviewed & negative as marked: Yes - Review of Systems Constitutional: Fatigue. absent: Fevers Respiratory: Cough. absent: SOB Cardiovascular: absent: Chest Pain Gastrointestinal: Diarrhea, Nausea, Vomiting Musculoskeletal: Back Pain Neurological: Headache Physical Exam - Physical Exam Narrative Physical Exam (Text): 01/04/18 Gen: VS reviewed, alert, well developed, well nourished, nontoxic, mild distress. ENT: normal pharynx. Eye: EOMI, PERRL. Neck: no JVD, supple, no adenopathy. CV: regular rate, regular rhythm, no rubs, no murmur, no gallops, S1, S2, pulses equal and strong. Pulm: no distress, clear to auscultation, no wheeze, no rhonchi, breath sounds equal, no rales. Abd: soft, nontender, no guarding, no rebound, no rigidity, normal bowel sounds. Ext: no edema. Skin: (+) pale, no rash, no cyanosis. Psych: responds appropriately to questions, normal affect. Neuro: oriented x 3, CN2-12 intact grossly, motor intact, sensation intact. Vital Signs Reviewed: Yes Vital Signs Temp Pulse Resp BP Pulse Ox 01/04/18 12:20 98.1 F 76 18 91/69 L 99 Temperature: Afebrile Blood Pressure: Hypotensive Pulse: Regular Respiratory Rate: Normal Appearance: Positive for: Well-Appearing, Non-Toxic, Comfortable Pain Distress: None Mental Status: Positive for: Alert and Oriented X 3 Medical Decision Making ED Course and Treatment: 01/04/18 Impression: 52 year old female with pale appearance complaining of vomiting, diarrhea, and fatigue since 6 days ago. Plan: -- Labs -- Chest X-ray -- Sodium Chloride -- Reassess and disposition Progress Notes: 1730: patient reports improvement in her symptoms with iv hydration. 01/04/18 18:18 patient seen for vomiting and diarrhea, however no episodes of vomiting during ED. patient found to have a nonspecific lower lobe infiltrate associated with the patient's reported cough. curb 65 score = 0. patient remained stable throughout ED course and appears stable for discharge. 01/04/18 18:20 - Lab Interpretations Lab Results: 01/04/18 13:32 01/04/18 13:32 Lab Results 01/04/18 17:38: Blood Type Pending, Antibody Screen Pending, BBK History Checked Patient has bt 01/04/18 17:30: Lactic Acid 1.5 01/04/18 13:32: Sodium 142, Potassium 3.9, Chloride 104, Carbon Dioxide 27, Anion Gap 14, BUN 15, Creatinine 0.9, Est GFR ( Amer) > 60, Est GFR (Non- Af Amer) > 60, Random Glucose 80, Calcium 8.6, Magnesium 2.1, Total Bilirubin 0.5, AST 16, ALT 15, Alkaline Phosphatase 99, Total Protein 7.1, Albumin 3.8, Globulin 3.3, Albumin/Globulin Ratio 1.1 01/04/18 13:32: WBC 9.8, RBC 3.62, Hgb 10.7 L, Hct 32.9 L, MCV 90.9, MCH 29.6, MCHC 32.5, RDW 14.0, Plt Count 263, MPV 9.5, Gran % 70.6 H, Lymph % (Auto) 19.4 L, [place] % (Auto) 7.1 H, Eos % (Auto) 2.5, Baso % (Auto) 0.4, Gran # 6.89 H, Lymph # (Auto) 1.9, [place] # (Auto) 0.7 H, Eos # (Auto) 0.2, Baso # (Auto) 0.04 I have reviewed the lab results: Yes - RAD Interpretation Narrative RAD Interpretations (Text): 01/04/18 15:32 Chest X-ray reviewed by radiologist, shows: Patchy airspace disease in the right mid and lower lung could represent developing pneumonia. Follow-up after medical management is recommended to ensure complete resolution. Radiology Orders: 01/04/18 12:47 X-RAY [CHEST TWO VIEWS (PA/LAT)] [RAD] Stat Casing Inspector: Radiologist - Medication Orders Current Medication Orders: Sodium Chloride (Sodium Chloride 0.9%) 1,000 mls @ 150 mls/hr IV [id number] KEITH Last Admin: 01/04/18 15:35 Dose: 150 mls/hr eMAR Start Stop Document 01/04/18 15:35 [email or web address] (Rec: 01/04/18 15:35 [email or web address] [id number]) Intravenous Solution Start Date 01/04/18 Start Time 15:35 End Date 01/04/18 Discontinued Medications Levofloxacin/Dextrose (Levaquin 750mg) 750 mg IVPB STAT STA PRN Reason: Protocol Stop: 01/04/18 15:37 Last Admin: 01/04/18 16:46 Dose: 750 mg eMAR Start Stop Document 01/04/18 16:46 [email or web address] (Rec: 01/04/18 16:47 [email or web address] [id number]) Intravenous Solution Start Date 01/04/18 Start Time 16:47 End Date 01/04/18 - Scribe Statement The provider has reviewed the documentation as recorded by the Malathi Okeefe Provider Scribe Attestation: All medical record entries made by the Scribe were at my direction and personally dictated by me. I have reviewed the chart and agree that the record accurately reflects my personal performance of the history, physical exam, medical decision making, and the department course for this patient. I have also personally directed, reviewed, and agree with the discharge instructions and disposition. Disposition/Present on Arrival - Present on Arrival Any Indicators Present on Arrival: No History of DVT/PE: No History of Uncontrolled Diabetes: No Urinary Catheter: No History of Decub. Ulcer: No History Surgical Site Infection Following: None - Disposition Have Diagnosis and Disposition been Completed?: Yes Diagnosis: Pneumonia Disposition: HOME/ ROUTINE Disposition Time: 18:21 Patient Plan: Discharge Patient Problems: Current Active Problems Problem Status Onset Pneumonia Acute Condition: GOOD Discharge Instructions (ExitCare): Pneumonia in Adults Print Language: TUNISIAN Additional Instructions: stay well hydrated (water). return for any new or worsening symptoms especially fever greater than 100.4, uncontrolled vomiting. follow up with your primary care doctor as soon as possible. Prescriptions: levoFLOXacin [Levaquin] 750 mg PO DAILY #5 tab Referrals: Janelle Greene MD [Primary Care Provider] - Follow up with primary Forms: [employer] (Bengali)
[2018-01-04] MEDS ORDERED: Sodium Chloride 0.9% 1,000 ML IV SCH (13:00)
[2018-01-04 13:40] LABS: BASO # 0.04 K/mm3 (0.0-2.0); BASO % 0.4 % (0.0-3.0); EOS # 0.2 (0.0-0.7); EOS % 2.5 % (1.5-5.0); GRAN # 6.89 (1.4-6.5); GRAN % 70.6 % (50.0-68.0); HEMOGLOBIN 10.7 g/dL (12.0-16.0); LYMPH # 1.9 (1.2-3.4); LYMPH % 19.4 % (22.0-35.0); MEAN CELL VOLUME 90.9 fl (80.0-105.0); MEAN CORPUSCULAR HEMOGLOBIN 29.6 pg (25.0-35.0); MEAN CORPUSCULAR HGB CONC 32.5 g/dl (31.0-37.0); MEAN PLATELET VOLUME 9.5 fl (7.0-11.0); MONO # 0.7 (0.1-0.6); MONO % 7.1 % (1.0-6.0); RBC 3.62 10^6/uL (3.5-6.1); WHITE BLOOD COUNT 9.8 10^3/ul (4.5-11.0)
[2018-01-04 13:59] LABS: ALB/GLOB RATIO 1.1 (1.1-1.8); ALBUMIN 3.8 g/dL (3.0-4.8); ALT/SGPT 15 U/L (7-56); AST/SGOT 16 U/L (14-36); BLOOD UREA NITROGEN 15 mg/dL (7-21); CALCIUM 8.6 mg/dL (8.4-10.5); GFR AFRICAN-AMERICAN > 60; GFR NON-AFRICAN AMERICAN > 60
--- NOTE | 2018-01-04 15:10 | RAD ---
HISTORY: COMPARISON: 09/10/2017. TECHNIQUE: Chest PA and lateral FINDINGS: LINES AND TUBES: None. LUNG AND PLEURA: There is patchy airspace disease in the right mid lung and lower lobe. The left lung is clear. HEART AND MEDIASTINUM: The heart is not enlarged. The hilar and mediastinal contours are within normal limits. SKELETAL STRUCTURES: The bony structures are within normal limits for the patient's age. VISUALIZED UPPER ABDOMEN: Normal. OTHER FINDINGS: None. IMPRESSION: Patchy airspace disease in the right mid and lower lung could represent developing pneumonia. Follow-up after medical management is recommended to ensure complete resolution.
[2018-01-04] MEDS ORDERED: Azithromycin 500MG/NS 250ml 500 MG/250 ML BAG IVPB STA (15:25)
[2018-01-04] MEDS ORDERED: cefTRIAXone 1 gm 1 GM/100 ML BAG IVPB STA (15:25)
[2018-01-04] MEDS ORDERED: levoFLOXacin 750 mg in D5W 150 ML BAG IVPB STA (15:36)
[2018-01-04 19:34] VITALS: BP 100/59; PULSE 73; TEMP 98; O2SAT 96
== END 2018-01-04 19:34 | disposition home or self-care (01) ==
LOC: ED 11:32
DX: J18.9 Pneumonia, unspecified organism (principal); I10 Essential (primary) hypertension; D64.9 Anemia, unspecified; Z86.73 Personal history of transient ischemic attack (TIA), and cerebral infarction without residual deficits
CPT/HCPCS: 71046; 80053; 83605; 83735; 85025; 86850; 86900; 87040; 99283; J7030

== ENCOUNTER 2018-02-19 23:30 | Observation (INO) | payer MEDICARE, MEDICAID ==
--- NOTE | 2018-02-20 01:17 | ED PDOC ---
Arrival/HPI - General Chief Complaint: GI Problem Time Seen by Provider: 02/19/18 23:58 Historian: Patient - History of Present Illness Narrative History of Present Illness (Text): 02/20/18 01:08 52 year old female, whose past medical history includes hypertension, CVA, asthma, hypothyroidism, anemia, atrial fibrillation, bipolar disorder, gastric bypass surgery, and hypercoagulable state on Eliquis, presents complaining of diffuse abdominal discomfort associated with reoccuring episode of nausea and vomiting for the past couple days. Patient is unable to keep anything down according to patient. Patient denies any fever, chills, chest pain, shortness of breath, diarrhea, urinary symptoms, back pain, neck pain, headache, dizziness , or any other complaints. PMD: Dr. Greene Time/Duration: Other (past couple days) Symptom Onset: Gradual Symptom Course: Unchanged Activities at Onset: Light Context: Home Past Medical History - Provider Review Nursing Documentation Reviewed: Yes - Past History Past History: No Previous - Infectious Disease Hx of Infectious Diseases: None - Tetanus Immunization Tetanus Immunization: Unknown - Cardiac Hx Hypertension: Yes - Pulmonary Hx Asthma: Yes Hx Pneumonia: Yes - Neurological HX Cerebrovascular Accident: Yes - HEENT Hx HEENT Disorder: Yes (eyeglasses) - Renal Hx Renal Disorder: Yes Hx Kidney Stones: Yes - Endocrine/Metabolic Hx Hypothyroidism: Yes - Hematological/Oncological Hx Anemia: Yes - Integumentary Other/Comment: mid chest steri strips intact loop recorded implanted, multiple round brown spots ble - Musculoskeletal/Rheumatological Hx Falls: No Hx Osteoporosis: Yes - Gastrointestinal Hx Gastrointestinal Disorders: Yes (gi bleed, obese) Hx Gastroesophageal Reflux: Yes - Genitourinary/Gynecological Hx Genitourinary Disorders: No - Psychiatric Hx Anxiety: Yes Hx Bipolar Disorder: Yes Hx Depression: Yes Hx Schizophrenia: Yes Hx Substance Use: No - Surgical History Hx Gastric Bypass Surgery: Yes (07/26/1999 235 lb weight loss) Other/Comment: R chest port for iron infusions and hydration. - Anesthesia Hx Anesthesia Reactions: No Hx Malignant Hyperthermia: No - Suicidal Assessment Feels Threatened In Home Enviroment: No Family/Social History - Physician Review Nursing Documentation Reviewed: Yes Family/Social History: No Known Family HX Smoking Status: Never Smoked Hx Alcohol Use: No Hx Substance Use: No Hx Substance Use Treatment: No Allergies/Home Meds Allergies/Adverse Reactions: Allergies Iodinated Contrast- Oral and IV Dye [Iodinated Contrast Media - IV Dye] Allergy (Verified 02/20/18 07:39) RASH iodine Allergy (Verified 02/20/18 07:39) RASH meperidine Allergy (Verified 02/20/18 07:39) RASH Home Medications: Home Meds Medication Instructions Recorded Confirmed Pregabalin [Lyrica] 50 mg PO DAILY 04/07/15 02/20/18 Pantoprazole [Protonix EC Tab] 40 mg PO DAILY 03/21/17 02/20/18 Review of Systems - Physician Review All systems were reviewed & negative as marked: Yes - Review of Systems Constitutional: absent: Fevers, Other (Chills) Respiratory: absent: SOB Cardiovascular: absent: Chest Pain Gastrointestinal: Abdominal Pain, Nausea, Vomiting. absent: Diarrhea Genitourinary Female: absent: Dysuria, Frequency, Hematuria Musculoskeletal: absent: Back Pain, Neck Pain Neurological: absent: Headache, Dizziness Physical Exam Vital Signs Reviewed: Yes Vital Signs Temp Pulse Resp BP Pulse Ox 02/20/18 06:00 98.1 F 79 18 134/77 92 L 02/20/18 05:44 86 18 123/66 98 02/20/18 01:49 98.6 F 02/20/18 00:57 78 18 137/89 98 Temperature: Afebrile Blood Pressure: Normal Pulse: Regular Respiratory Rate: Normal Appearance: Positive for: Well-Appearing, Non-Toxic, Comfortable Pain Distress: None Mental Status: Positive for: Alert and Oriented X 3 - Systems Exam Head: Present: Atraumatic, Normocephalic Pupils: Present: PERRL Extroacular Muscles: Present: EOMI Conjunctiva: Present: Normal Mouth: Present: Dry (slightly) Neck: Present: Normal Range of Motion Respiratory/Chest: Present: Clear to Auscultation, Good Air Exchange. No: Respiratory Distress, Accessory Muscle Use Cardiovascular: Present: Regular Rate and Rhythm, Normal S1, S2. No: Murmurs Abdomen: Present: Normal Bowel Sounds. No: Tenderness, Distention, Peritoneal Signs Back: Present: Normal Inspection Upper Extremity: Present: Normal Inspection. No: Cyanosis, Edema Lower Extremity: Present: Normal Inspection. No: Edema Neurological: Present: GCS=15, CN II-XII Intact, Speech Normal Skin: Present: Warm, Dry, Normal Color. No: Rashes Psychiatric: Present: Alert, Oriented x 3, Normal Insight, Normal Concentration Medical Decision Making ED Course and Treatment: 02/20/18 01:08 Impression: 52 year old female presents complaining of diffuse abdominal discomfort associated with reoccurring episode of nausea and vomiting for the past couple of days. Plan: -- CT Abd & Pelvis IV contrast -- Labs -- Chest X-ray -- Morphine, Pepcid, IV Fluids, Zofran Inj -- Reassess and disposition Prior Visits: Notes and results from previous visits were reviewed. Patient was last seen in the emergency department on 01/04/18 presents complaining of vomiting since 6 days. Patient was admitted. Progress Notes: 02/20/18 04:09 CXR Impression: As read by me, no acute process. EXAM: CT Abdomen and Pelvis Without Intravenous Contrast Dictated and Authenticated by: Scottie Babb MD 02/20/2018 4:15 AM IMPRESSION: Small nodules versus nodular appearing infiltrates in the right lung base. The largest of these is in the right lower lobe measuring 7 mm in diameter. RECOMMENDATIONS: Small nodules versus nodular appearing infiltrates in the right lung base. The largest of these is in the right lower lobe measuring 7 mm in diameter. In low-risk patients (minimal or absent history of smoking or other known risk factors), recommend chest CT follow-up at 3-6 months. If stable consider an additional follow-up CT at 18-24 months. For high-risk patients ( history of smoking or other known risk factors), recommend chest CT follow-up in 3-6 months and then at 18-24 months. 02/20/18 04:[address] Greene who is aware and agrees with the plan. Accepts patient into her service. - Lab Interpretations Lab Results: 02/20/18 01:45 02/20/18 01:45 Lab Results 02/20/18 01:45: WBC 8.9, RBC 3.47 L, Hgb 10.2 L, Hct 31.4 L, MCV 90.5, MCH 29.4 , MCHC 32.5, RDW 14.9 H, Plt Count 266, MPV 10.2 02/20/18 01:45: Sodium 146, Potassium 3.6, Chloride 109 H, Carbon Dioxide 27, Anion Gap 13, BUN 12, Creatinine 0.8, Est GFR ( Amer) > 60, Est GFR (Non- Af Amer) > 60, Random Glucose 88, Calcium 8.8, Total Bilirubin 0.4, AST 20, ALT 17, Alkaline Phosphatase 106, Total Protein 6.9, Albumin 3.7, Globulin 3.2, Albumin/Globulin Ratio 1.2, Lipase 51 I have reviewed the lab results: Yes - RAD Interpretation Radiology Orders: 02/20/18 01:18 ABD & PELVIS W/O PO OR IV CONT [CT] Stat CHEST PORTABLE [RAD] Stat - Medication Orders Current Medication Orders: Apixaban (Eliquis) 5 mg PO BID KEITH PRN Reason: Protocol Last Admin: 02/20/18 11:39 Dose: 5 mg Aripiprazole (Abilify) 30 mg PO HS KEITH Atorvastatin Calcium (Lipitor) 10 mg PO DIN KEITH Clonazepam (Klonopin) 0.25 mg PO TID PRN; Protocol PRN Reason: Anxiety Docusate Sodium (Colace) 100 mg PO BID KEITH Last Admin: 02/20/18 11:40 Dose: 100 mg Duloxetine HCl (Cymbalta) 60 mg PO DAILY KEITH Last Admin: 02/20/18 11:40 Dose: 60 mg Dextrose/Sodium Chloride (Dextrose 5%/0.45% Ns 1000 Ml) 1,000 mls @ 100 mls/hr IV .Q10H KEITH Last Admin: 02/20/18 05:50 Dose: 100 mls/hr eMAR Start Stop Document 02/20/18 05:50 SS (Rec: 02/20/18 05:50 [id number] Intravenous Solution Start Date 02/20/18 Start Time 05:50 Ceftriaxone Sodium (Rocephin 1 Gram Ivpb) 1 gm in 100 mls @ 100 mls/hr IVPB DAILY KEITH PRN Reason: Protocol Insulin Human Regular (Humulin R Low) 0 units SC ACHS KEITH PRN Reason: Protocol Last Admin: 02/20/18 11:30 Dose: Not Given Non-Admin Reason: Blood Sugar Parameter Levothyroxine Sodium (Synthroid) 125 mcg PO 0600 KEITH Ondansetron HCl (Zofran Inj) 4 mg IVP Q6H PRN PRN Reason: Nausea/Vomiting Last Admin: 02/20/18 11:39 Dose: 4 mg IVP Administration Document 02/20/18 11:39 GWEN (Rec: 02/20/18 11:39 GWEN [facility] [id number]) Charges for Administration # of IVP Administrations 1 Pantoprazole Sodium (Protonix Ec Tab) 40 mg PO 0600 KEITH Pregabalin (Lyrica) 50 mg PO DAILY [facility] Last Admin: 02/20/18 11:40 Dose: 50 mg Zolpidem Tartrate (Ambien) 5 mg PO HS PRN; Protocol PRN Reason: Insomnia Discontinued Medications Famotidine (Pepcid) 20 mg IVP STAT STA Stop: 02/20/18 01:20 Last Admin: 02/20/18 01:58 Dose: 20 mg IVP Administration Document 02/20/18 01:58 JOL (Rec: 02/20/18 01:58 [id number] Charges for Administration # of IVP Administrations 1 Sodium Chloride (Sodium Chloride 0.9%) 1,000 mls @ 100 mls/hr IV .Q10H [facility] Last Admin: 02/20/18 01:59 Dose: 100 mls/hr eMAR Start Stop Document 02/20/18 01:59 JOL (Rec: 02/20/18 01:59 JOL [id number]) Intravenous Solution Start Date 02/20/18 Start Time 01:00 Morphine Sulfate (Morphine) 2 mg IVP STAT STA Stop: 02/20/18 01:22 Last Admin: 02/20/18 01:59 Dose: 2 mg MAR Pain Assessment Document 02/20/18 01:59 JOL (Rec: 02/20/18 01:59 JOL [id number]) Pain Reassessment Is this a pain reassessment? No Sleep Is patient sleeping during reassessment? No Presence of Pain Presence of Pain Yes Pain Scale Used Pain Scale Used Numeric Location Pain Location Body Site Abdomen Description Intensity of Pain at present 8 Pain Behavior Guarding Withdrawal from Touch Restlessness Facial Grimacing Aggravating Factors ADL's Changing Position IVP Administration Document 02/20/18 01:59 JOL (Rec: 02/20/18 01:59 JOL [id number]) Charges for Administration # of IVP Administrations 1 Re-Assess: JUAN ALBERTO Pain Assessment Document 02/20/18 02:59 MB (Rec: 02/20/18 05:32 MB [id number]) Pain Reassessment Is this a pain reassessment? Yes Sleep Is patient sleeping during reassessment? Yes Morphine Sulfate (Morphine) 2 mg IVP STAT STA Stop: 02/20/18 05:09 Last Admin: 02/20/18 05:26 Dose: 2 mg MAR Pain Assessment Document 02/20/18 05:26 SS (Rec: 02/20/18 05:26 [facility] [id number][facility] Pain Reassessment Is this a pain reassessment? Yes Sleep Is patient sleeping during reassessment? No Presence of Pain Presence of Pain Yes Pain Scale Used Pain Scale Used Numeric Location Pain Location Body Site Abdomen IVP Administration Document 02/20/18 05:26 SS (Rec: 02/20/18 05:26 [id number][facility] Charges for Administration # of IVP Administrations 1 Ondansetron HCl (Zofran Inj) 4 mg IVP ONCE ONE Stop: 02/20/18 01:20 Last Admin: 02/20/18 01:58 Dose: 4 mg IVP Administration Document 02/20/18 01:58 JOL (Rec: 02/20/18 01:59 JOL [id number]) Charges for Administration # of IVP Administrations 1 - Scribe Statement The provider has reviewed the documentation as recorded by the Malathi Oropeza Provider Scribe Attestation: All medical record entries made by the Scribe were at my direction and personally dictated by me. I have reviewed the chart and agree that the record accurately reflects my personal performance of the history, physical exam, medical decision making, and the department course for this patient. I have also personally directed, reviewed, and agree with the discharge instructions and disposition. Disposition/Present on Arrival - Present on Arrival Any Indicators Present on Arrival: No History of DVT/PE: No History of Uncontrolled Diabetes: No Urinary Catheter: No History of Decub. Ulcer: No History Surgical Site Infection Following: None - Disposition Have Diagnosis and Disposition been Completed?: Yes Diagnosis: Abdominal pain Disposition: HOSPITALIZED Disposition Time: 04:50 Patient Problems: Current Active Problems Problem Status Onset Abdominal pain Acute Condition: STABLE
[2018-02-20] MEDS ORDERED: Morphine 2 mg/ml ISec IVP STA ×2 (01:21→05:08)
[2018-02-20] MEDS ORDERED: Sodium Chloride 0.9% 1,000 ML IV SCH (01:30)
[2018-02-20 02:08] LABS: HEMOGLOBIN 10.2 g/dL (12.0-16.0); MEAN CELL VOLUME 90.5 fl (80.0-105.0); MEAN CORPUSCULAR HEMOGLOBIN 29.4 pg (25.0-35.0); MEAN CORPUSCULAR HGB CONC 32.5 g/dl (31.0-37.0); MEAN PLATELET VOLUME 10.2 fl (7.0-11.0); RBC 3.47 10^6/uL (3.5-6.1); RED CELL DISTRIBUTION WIDTH 14.9 % (11.5-14.5); WHITE BLOOD COUNT 8.9 10^3/ul (4.5-11.0)
[2018-02-20 02:16] LABS: ALB/GLOB RATIO 1.2 (1.1-1.8); ALBUMIN 3.7 g/dL (3.0-4.8); ALT/SGPT 17 U/L (7-56); AST/SGOT 20 U/L (14-36); BLOOD UREA NITROGEN 12 mg/dL (7-21); CALCIUM 8.8 mg/dL (8.4-10.5); GFR NON-AFRICAN AMERICAN > 60; LIPASE 51 U/L (23-300)
[2018-02-20] MEDS ORDERED: Dextrose 5%/0.45% NS 1,000 ML IV SCH (05:45)
[2018-02-20 07:21] VITALS: BMI 37.3
--- NOTE | 2018-02-20 08:13 | RAD ---
Date of service: 02/20/2018 HISTORY: abdominal pain COMPARISON: Chest radiographs 01/16/2018. FINDINGS: LUNGS: Right MediPort unchanged in position grossly. Diminished inspiratory volume is identified with crowding of the bronchovascular markings at the bilateral bases. No definite alveolitis acutely identified. PLEURA: No significant pleural effusion identified, no pneumothorax apparent. CARDIOVASCULAR: Normal. OSSEOUS STRUCTURES: No significant abnormalities. VISUALIZED UPPER ABDOMEN: Normal. OTHER FINDINGS: None. IMPRESSION: No acute cardiopulmonary is although diminished inspiratory volume is identified. MediPort stable. Clinically correlate further.
[2018-02-20] MEDS: cefTRIAXone 1 gm 1 GM/100 ML BAG IVPB SCH (11:20)
[2018-02-20] MEDS: Insulin Reg-LOW-Coverage SC SCH ×2 (11:30→17:08)
--- NOTE | 2018-02-20 11:56 | CT ---
Date of service: 02/20/2018 PROCEDURE: CT Abdomen and Pelvis without intravenous contrast HISTORY: abdominal pain COMPARISON: None. TECHNIQUE: Without contrast. Contrast dose: Radiation dose: Total exam DLP = 1139 mGy-cm. This CT exam was performed using one or more of the following dose reduction techniques: Automated exposure control, adjustment of the mA and/or kV according to patient size, and/or use of iterative reconstruction technique. FINDINGS: LOWER THORAX: Nodules are seen at the right lung base. The largest measures 7 mm. Follow-up may be indicated LIVER: Unremarkable. No gross lesion or ductal dilatation. GALLBLADDER AND BILE DUCTS: Unremarkable. PANCREAS: Unremarkable. No gross lesion or ductal dilatation. SPLEEN: Unremarkable. ADRENALS: Unremarkable. No mass. KIDNEYS AND URETERS: Unremarkable. No hydronephrosis. No solid mass. VASCULATURE: Unremarkable. No aortic aneurysm. BOWEL: Unremarkable. No obstruction. No gross mural thickening. APPENDIX: Unremarkable. Normal appendix. PERITONEUM: Unremarkable. No free fluid. No free air. LYMPH NODES: Unremarkable. No enlarged lymph nodes. BLADDER: Unremarkable. REPRODUCTIVE: Unremarkable. BONES: No acute fracture. OTHER FINDINGS: None. IMPRESSION: No acute intra-abdominal findings. Lung nodules at the right lung base.
--- NOTE | 2018-02-20 12:27 | CP.PCM.CON ---
<Bee Pickens - Last Filed: 02/20/18 12:26> History of Present Illness - History of Present Illness History of Present Illness: Seen and examined at bedside, chart reviewed. Request for consult is for abdominal pain and vomiting. HPI: This is a 52 year old female known to our service from previous admission and outpatient office. This patient has PMH of gastric bypass, CVA, asthma, erosive gastritis, atrial fibrillation, and hypercoagulable state on Eliquis to the hospital with diffuse abdominal pain and nausea and vomiting. Patient endorses that N/V worsening past 2days. On occasion she does get N/V but resolves. No hematemesis. Denies any contributing oral intake, no sick contacts, no fever or chills. Endorses that she trys to eat 8 small meals /day, but does have evening snack as per internet network specialist form hypoglycemic events in the past. Did have episode of diarrhea3-4 x prior to admission but has since resolved. No reports of melena or BRBPR. Ct scan A&P was done and revealed gastric bypass, no obstruction. small nodules vs infiltrate in right lung base, and small umbilical hernia containing fat, bowel did not show obstruction or mural thickening. Patient did have EGD and colon 07/2017. 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 Gastric biopsies negative for H. pylori and intestinal metaplasia. On colonoscopy found to have internal hemorrhoids, terminal ileum was normal and biopsies for microscopic colitis was negative. The terminal ileum biopsy was negative for active inflammation. Family history: mother CHF Social history: Denies tobacco use, EtOH or substance abuse Allergies: Iodine needed contrast media oral and IV, meperidine Medications: Reviewed as per MAR ROS: Systems reviewed with positive finding see HPI. Past Patient History - Infectious Disease Hx of Infectious Diseases: None - Tetanus Immunizations Tetanus Immunization: Unknown - Past Social History Smoking Status: Never Smoked - CARDIAC Hx Hypertension: Yes - PULMONARY Hx Asthma: Yes Hx Pneumonia: Yes - NEUROLOGICAL HX Cerebrovascular Accident: Yes - HEENT Hx HEENT Problems: Yes (eyeglasses) - RENAL Hx Chronic Kidney Disease: Yes Hx Kidney Stones: Yes - ENDOCRINE/METABOLIC Hx Hypothyroidism: Yes - HEMATOLOGICAL/ONCOLOGICAL Hx Anemia: Yes - INTEGUMENTARY Other/Comment: mid chest steri strips intact loop recorded implanted, multiple round brown spots ble - MUSCULOSKELETAL/RHEUMATOLOGICAL Hx Falls: No Hx Osteoporosis: Yes - GASTROINTESTINAL Hx Gastrointestinal Disorders: Yes (gi bleed, obese) Hx Gastroesophageal Reflux: Yes - GENITOURINARY/GYNECOLOGICAL Hx Genitourinary Disorders: No - PSYCHIATRIC Hx Anxiety: Yes Hx Bipolar Disorder: Yes Hx Depression: Yes Hx Schizophrenia: Yes - SURGICAL HISTORY Hx Gastric Bypass Surgery: Yes (07/26/1999 235 lb weight loss) Other/Comment: R chest port for iron infusions and hydration. - ANESTHESIA Hx Anesthesia Reactions: No Hx Malignant Hyperthermia: No Meds Allergies/Adverse Reactions: Allergies Allergy/AdvReac Type Severity Reaction Status Date / Time Iodinated Contrast- Oral and Allergy RASH Verified 02/20/18 07:39 IV Dye [Iodinated Contrast Media - IV Dye] iodine Allergy RASH Verified 02/20/18 07:39 meperidine Allergy RASH Verified 02/20/18 07:39 - Medications Medications: Current Medications Apixaban (Eliquis) 5 mg PO BID KEITH PRN Reason: Protocol Aripiprazole (Abilify) 30 mg PO HS KEITH Atorvastatin Calcium (Lipitor) 10 mg PO DIN KEITH Clonazepam (Klonopin) 0.25 mg PO TID PRN; Protocol PRN Reason: Anxiety Docusate Sodium (Colace) 100 mg PO BID KEITH Duloxetine HCl (Cymbalta) 60 mg PO DAILY [facility] Dextrose/Sodium Chloride (Dextrose 5%/0.45% Ns 1000 Ml) 1,000 mls @ 100 mls/hr IV .Q10H [facility] Last Admin: 02/20/18 05:50 Dose: 100 mls/hr Ceftriaxone Sodium (Rocephin 1 Gram Ivpb) 1 gm in 100 mls @ 100 mls/hr IVPB DAILY KEITH PRN Reason: Protocol Insulin Human Regular (Humulin R Low) 0 units SC ACHS KEITH PRN Reason: Protocol Levothyroxine Sodium (Synthroid) 125 mcg PO 0600 KEITH Ondansetron HCl (Zofran Inj) 4 mg IVP Q6H PRN PRN Reason: Nausea/Vomiting Pantoprazole Sodium (Protonix Ec Tab) 40 mg PO 0600 KEITH Pregabalin (Lyrica) 50 mg PO DAILY KEITH Zolpidem Tartrate (Ambien) 5 mg PO HS PRN; Protocol PRN Reason: Insomnia Physical Exam - Constitutional Appears: No Acute Distress - Head Exam Head Exam: NORMOCEPHALIC - Eye Exam Eye Exam: Normal appearance. absent: Scleral icterus - ENT Exam ENT Exam: Mucous Membranes Moist - Neck Exam Neck exam: Positive for: Normal Inspection - Respiratory Exam Respiratory Exam: NORMAL BREATHING PATTERN. absent: Respiratory Distress - Cardiovascular Exam Cardiovascular Exam: +S1, +S2 - GI/Abdominal Exam GI & Abdominal Exam: Normal Bowel Sounds, Soft, Tenderness. absent: Guarding, Rebound Additional comments: diffuse tenderness throughout abdomen, greatest to mid upper abdomen. - Extremities Exam Extremities exam: Positive for: pedal pulses present. Negative for: calf tenderness, pedal edema - Neurological Exam Neurological exam: Alert, Oriented x3 - Skin Skin Exam: Dry, Warm Results - Vital Signs Recent Vital Signs: Last Vital Signs Temp 98.1 F 02/20/18 07:03 Pulse 79 02/20/18 07:03 Resp 18 02/20/18 07:03 BP 134/77 02/20/18 07:03 Pulse Ox 97 02/20/18 06:42 - Labs Result Diagrams: 02/20/18 01:45 02/20/18 01:45 Labs: Laboratory Results - last 24 hr 02/20/18 02/20/18 05:25 11:12 POC Glucose (mg/dL) 60 L 100 Assessment & Plan - Assessment and Plan (Free Text) Assessment: ASSESSMENT: Diffuse Abdominal Pain Nausea/Vomiting Gastric Bypass Gastric Erosion Hypercoaguable state Pulmonary nodules Asthma PLAN: clear liquid diet, advance as tolerated continue PPI monitor electrolytes and replace as needed on Eliquis continue IVF for hydration on Colace Thank you for this consult and for allowing us to participate in your patient care, further recommendation based upon clinical course. Seen and discussed w/ Dr. Sanchez. <Radhika Sanchez V - Last Filed: 02/20/18 23:41> Meds - Medications Medications: Current Medications Apixaban (Eliquis) 5 mg PO BID KEITH PRN Reason: Protocol Last Admin: 02/20/18 19:08 Dose: 5 mg Aripiprazole (Abilify) 30 mg PO HS KEITH Last Admin: 02/20/18 22:01 Dose: 30 mg Atorvastatin Calcium (Lipitor) 10 mg PO DIN [facility] Last Admin: 02/20/18 17:08 Dose: 10 mg Clonazepam (Klonopin) 0.25 mg PO TID PRN; Protocol PRN Reason: Anxiety Last Admin: 02/20/18 22:00 Dose: 0.25 mg Docusate Sodium (Colace) 100 mg PO BID [facility] Last Admin: 02/20/18 17:09 Dose: 100 mg Duloxetine HCl (Cymbalta) 60 mg PO DAILY [facility] Last Admin: 02/20/18 11:40 Dose: 60 mg Dextrose/Sodium Chloride (Dextrose 5%/0.45% Ns 1000 Ml) 1,000 mls @ 100 mls/hr IV .Q10H [facility] Last Admin: 02/20/18 05:50 Dose: 100 mls/hr Ceftriaxone Sodium (Rocephin 1 Gram Ivpb) 1 gm in 100 mls @ 100 mls/hr IVPB DAILY KEITH PRN Reason: Protocol Last Admin: 02/20/18 11:20 Dose: 100 mls/hr Insulin Human Regular (Humulin R Low) 0 units SC ACHS KEITH PRN Reason: Protocol Last Admin: 02/20/18 17:08 Dose: Not Given Levothyroxine Sodium (Synthroid) 125 mcg PO 0600 [facility] Ondansetron HCl (Zofran Inj) 4 mg IVP Q6H PRN PRN Reason: Nausea/Vomiting Last Admin: 02/20/18 11:39 Dose: 4 mg Pantoprazole Sodium (Protonix Ec Tab) 40 mg PO 0600 [facility] Pregabalin (Lyrica) 50 mg PO DAILY [facility] Last Admin: 02/20/18 11:40 Dose: 50 mg Zolpidem Tartrate (Ambien) 5 mg PO HS PRN; Protocol PRN Reason: Insomnia Last Admin: 02/20/18 22:01 Dose: 5 mg Results - Vital Signs Recent Vital Signs: Last Vital Signs Temp 97.6 F 02/20/18 22:33 Pulse 71 02/20/18 22:33 Resp 20 02/20/18 22:33 BP 119/73 02/20/18 22:33 Pulse Ox 97 02/20/18 22:33 - Labs Result Diagrams: 02/20/18 01:45 02/20/18 01:45 Labs: Laboratory Results - last 24 hr 02/20/18 02/20/18 02/20/18 05:25 11:12 16:17 POC Glucose (mg/dL) 60 L 100 103 Attending/Attestation - Attestation I have personally seen and examined this patient.: Yes I have fully participated in the care of the patient.: Yes I have reviewed all pertinent clinical information: Yes
[2018-02-20 14:51] VITALS: RESP 20
[2018-02-21] MEDS: Insulin Reg-LOW-Coverage SC SCH ×2 (02:49→06:39)
[2018-02-21] MEDS ORDERED: Pantoprazole 40 mg EC Tab PO SCH (06:00)
[2018-02-21] MEDS ORDERED: Levothyroxine 25 MCG TAB PO SCH (06:00)
[2018-02-21] MEDS ORDERED: Levothyroxine 125 MCG TAB PO SCH (06:00)
--- NOTE | 2018-02-21 06:54 | CON ---
Copied To: Gisselle Sears MD Attending MD: Gisselle Sears MD DATE: 02/20/2018 PULMONARY CONSULTATION REFERRING PHYSICIAN: Dr. Greene REASON FOR CONSULT: Lung nodule. HISTORY OF PRESENT ILLNESS: This is a 52-year-old female, known to me from previous admission, known to have a hypertension, chronic obstructive lung disease, stroke, hypothyroid, anemia, atrial fibrillation, bipolar disorder, gastric bypass surgery in the past, comes in with abdominal pain associated with nausea and vomiting. No fever, no chills. No dysuria. No leg pain or leg swelling. PAST MEDICAL HISTORY: As per history of present illness. ALLERGIES: TO IV DYE, ALSO GETS RASH. FAMILY HISTORY: No significant cardiopulmonary disease reported. SOCIAL HISTORY: Never smoked. Denied any alcohol use. MEDICATIONS: She is on Abilify 30 mg at bedtime, Ambien 5 mg at bedtime p.r.n., Colace 100 mg twice a day, Cymbalta 60 mg daily, IV fluid D5 half normal saline 100 mL/hour, Eliquis 5 mg twice a day, insulin coverage, clonazepam 0.25 mg three times a day p.r.n., Lipitor 10 mg daily, Lyrica 50 mg daily, Protonix 40 mg daily, Rocephin 1 g daily, Synthroid 125 mcg daily, Zofran p.r.n. basis. REVIEW OF SYSTEMS: No headache, no rhinitis. Gets short of breath on minimal exertion. Admit to have snoring, daytime sleepy and tired. Has nausea and abdominal pain. No dysuria. No leg pain or leg swelling. PHYSICAL EXAMINATION: GENERAL: Lying in the bed, no acute distress. VITAL SIGNS: Temperature is 98, heart rate is 72, respiratory rate is 20, blood pressure 133/90, pulse ox 98% on room air. HEENT: Moist mucous membranes. Crowded airway. Short thick neck. LUNGS: Have fair airflow with rhonchi. HEART: S1 and S2. ABDOMEN: Soft, nontender, no organomegaly. EXTREMITIES: No edema. NEUROLOGICALLY: Awake and follows simple commands. LABORATORY DATA: Shows hemoglobin 10.2, hematocrit 31.4, WBC 8.9, platelet is 266. Sodium 146, potassium 3.6, chloride 109, bicarbonate 27, BUN 12, creatinine 0.8, glucose 88, calcium 8.8, total bili 0.4, AST is 20, ALT is 17, alk phos is 106. Albumin is 3.7, procalcitonin less than 0.05. Abdominal and pelvic CT shows no acute intra-abdominal findings, lung nodule at the right lung base. Chest x-ray shows no acute cardiopulmonary , although diminished inspiratory volume is identified. IMPRESSION AND PLAN: Abdominal pain associated with nausea and vomiting, history of gastric bypass surgery, pulmonary embolism, chronic lung disease, asthma, may have sleep apnea syndrome. Case discussed with Dr. Greene. Spoke to the patient and the patient's family at bedside. All the questions answered. We will add inhaled bronchodilator. Keep head [address] of the chest without contrast to evaluate lung nodules. In the past, she is suspected to have a sleep apnea syndrome, refused to use CPAP, still refusing CPAP use, understanding risk benefit ratio. Thank you and we will follow with you. Gisselle Sears MD
[2018-02-21 06:59] LABS: IRON 82 ug/dL (45-180)
--- NOTE | 2018-02-21 07:01 | HP ---
02/20/18 Copied To: Janelle Greene MD Attending MD: Janelle Greene MD CHIEF COMPLAINT: Abdominal pain, diarrhea, shortness of breath. HISTORY OF PRESENT ILLNESS: Ms. Julieth Szymanski is a 52-year-old female with past medical history of hypertension, CVA, asthma, hypothyroidism, anemia, atrial fibrillation, bipolar disorder, gastric bypass surgery, hypercoagulable state, on Eliquis, came to the emergency room with diffuse abdominal pain associated with reoccurring episodes of nausea and vomiting. For the past couple of days, the patient was unable to keep anything down according to the patient. The patient"s sister, father, and was on the bedside. No fever, no chills. No hematuria. No hematochezia. No headache, no dizziness. PAST MEDICAL HISTORY: As above. Hypertension, CVA, asthma, hypothyroidism, anemia, atrial fibrillation, bipolar, gastric bypass surgery, hypercoagulable state, history of pneumonia, kidney stones, osteoporosis, depression, schizophrenia, history of gastric bypass surgery on 07/26/1999. HABITS: No smoking. No drugs. No ethanol. FAMILY HISTORY: Father and mother, noncontributory. ALLERGIES: THE PATIENT IS ALLERGIC WITH ORAL AND IV DYE, IODINE, MEPERIDINE. HOME MEDICATIONS: Reviewed by . Willa Shaffer. REVIEW OF SYSTEMS: The patient was seen and examined on the bedside. Family is around. Still complaining about abdominal pain, nauseous, vomiting. No dizziness. No frequency. No hematuria or hematochezia. No back pain. No headache or dizziness. PHYSICAL EXAMINATION: VITAL SIGNS: Temperature 98.1, pulse 79, respiratory rate 18, blood pressure 135/77, pulse oximetry 92%. HEENT: Head normocephalic, atraumatic. Eyes PERRLA. Extraocular muscles are intact. Conjunctivae clear. Nose patent. Mucous membrane moist. NECK: Supple. No carotid bruit. No JVD or thyromegaly. CHEST: Bilaterally symmetrical. HEART: S1 and S2 positive. LUNGS: Clear to auscultation. ABDOMEN: Soft. Bowel sounds positive. No organomegaly. EXTREMITIES: No edema. No cyanosis. NEUROLOGICAL: The patient is awake and alert. Moving all 4 extremities. No focal deficits. LABORATORY DATA: White blood cells 8.9, hemoglobin 10.2, hematocrit 31.4, platelets 266. Sodium 146, potassium 3.6, BUN 12, creatinine 0.8, glucose 88. ASSESSMENT AND PLAN: Ms. Julieth Szymanski is a 52-year-old lady with history of multiple medical problems, has anemia; hyperchloremia; came with abdominal pain and nausea, vomiting; hospitalized for abdominal pain; has history of hypertension; cerebrovascular accident; asthma; hypothyroidism; history of pneumonia; atrial fibrillation, on Eliquis; bipolar disorder; gastric bypass surgery; hypercoagulable state. The patient is admitted. Discussion done with Dr. Sears and Dr. Malave. Discussion done with family. CAT scan of the abdomen and pelvis reviewed. Dr. Sanchez consult called. We will follow up. Janelle Greene MD MTDD
[2018-02-21 07:02] LABS: HEMOGLOBIN 9.9 g/dL (12.0-16.0); MEAN CORPUSCULAR HEMOGLOBIN 29.6 pg (25.0-35.0); MEAN CORPUSCULAR HGB CONC 32.5 g/dl (31.0-37.0); RBC 3.35 10^6/uL (3.5-6.1); RED CELL DISTRIBUTION WIDTH 14.9 % (11.5-14.5); WHITE BLOOD COUNT 6.6 10^3/ul (4.5-11.0)
[2018-02-21 07:08] LABS: % IRON SATURATION 48 % (20-55); TOTAL IRON BINDING CAPACITY 169 ug/dL (265-497)
[2018-02-21 07:17] LABS: BLOOD UREA NITROGEN 7 mg/dL (7-21); CALCIUM 8.2 mg/dL (8.4-10.5); GFR NON-AFRICAN AMERICAN > 60; HDL CHOLESTEROL 54 mg/dL (29-60)
[2018-02-21 07:19] LABS: LDL CHOLESTEROL 97 mg/dL (0-129)
[2018-02-21] MEDS: cefTRIAXone 1 gm 1 GM/100 ML BAG IVPB SCH (09:03)
--- NOTE | 2018-02-21 09:37 | CT ---
Date of service: 02/21/2018 PROCEDURE: CT Chest without contrast HISTORY: nodule COMPARISON: None available. TECHNIQUE: Contiguous axial images were obtained through the chest without intravenous contrast enhancement. Sagittal and coronal reconstructions were performed. Radiation dose (DLP): 745 mGy-cm. This CT exam was performed using one or more of the following dose reduction techniques: Automated exposure control, adjustment of the mA and/or kV according to patient size, and/or use of iterative reconstruction technique. FINDINGS: LUNGS: Scattered small nodules are seen in the right lung. There is an area of linear scarring in the lingular segment of the left upper lobe. The nodules could be inflammatory in etiology. MEDIASTINUM: Unremarkable thoracic aorta. No aneurysm. Normal sized heart. Main pulmonary artery unremarkable. No vascular congestion. No lymphadenopathy. PLEURA: No pleural fluid. No pneumothorax. BONES: No fracture. No destructive lesion. UPPER ABDOMEN: Grossly unremarkable. OTHER FINDINGS: None. IMPRESSION: Scattered small nodules in the right lung. These could be inflammatory in etiology. Follow-up is recommended
[2018-02-21 10:08] LABS: INR 1.26; PARTIAL THROMBOPLASTIN TIME 30.1 Seconds (25.1-36.5); PROTHROMBIN TIME 14.6 SECONDS (9.4-12.5)
--- NOTE | 2018-02-21 11:18 | CP.PCM.PN ---
Subjective - Date & Time of Evaluation Date of Evaluation: 02/21/18 Time of Evaluation: 09:50 - Subjective Subjective: S&E at bedside, chart reviewed, no acute overnight events, abdominal pain , N/V resolved. tolerating oral intake. No new complaints. No episode of diarrhea last night or this am. No overt GI bleeding. Objective - Vital Signs/Intake and Output Vital Signs (last 24 hours): Temp Pulse Resp BP Pulse Ox 97.6 F 63 20 126/78 94 L 02/21/18 06:00 02/21/18 06:00 02/21/18 06:00 02/21/18 06:00 02/21/18 06:00 Intake and Output: 02/21/18 02/21/18 06:59 18:59 Intake Total 360 Balance 360 - Medications Medications: Current Medications Apixaban (Eliquis) 5 mg PO BID [facility] PRN Reason: Protocol Last Admin: 02/21/18 09:03 Dose: 5 mg Aripiprazole (Abilify) 30 mg PO HS [facility] Last Admin: 02/20/18 22:01 Dose: 30 mg Atorvastatin Calcium (Lipitor) 10 mg PO DIN [facility] Last Admin: 02/20/18 17:08 Dose: 10 mg Clonazepam (Klonopin) 0.25 mg PO TID PRN; Protocol PRN Reason: Anxiety Last Admin: 02/20/18 22:00 Dose: 0.25 mg Docusate Sodium (Colace) 100 mg PO BID [facility] Last Admin: 02/21/18 09:03 Dose: 100 mg Duloxetine HCl (Cymbalta) 60 mg PO DAILY [facility] Last Admin: 02/21/18 09:03 Dose: 60 mg Ceftriaxone Sodium (Rocephin 1 Gram Ivpb) 1 gm in 100 mls @ 100 mls/hr IVPB DAILY [facility] PRN Reason: Protocol Last Admin: 02/21/18 09:03 Dose: 100 mls/hr Insulin Human Regular (Humulin R Low) 0 units SC ACHS [facility] PRN Reason: Protocol Last Admin: 02/21/18 06:39 Dose: 7 units Levothyroxine Sodium (Synthroid) 125 mcg PO 0600 [facility] Last Admin: 02/21/18 05:46 Dose: 125 mcg Ondansetron HCl (Zofran Inj) 4 mg IVP Q6H PRN PRN Reason: Nausea/Vomiting Last Admin: 02/20/18 11:39 Dose: 4 mg Pantoprazole Sodium (Protonix Ec Tab) 40 mg PO 0600 [facility] Last Admin: 02/21/18 05:46 Dose: 40 mg Pregabalin (Lyrica) 50 mg PO DAILY [facility] Last Admin: 02/21/18 09:03 Dose: 50 mg Zolpidem Tartrate (Ambien) 5 mg PO HS PRN; Protocol PRN Reason: Insomnia Last Admin: 02/20/18 22:01 Dose: 5 mg - Labs Labs: 02/21/18 06:25 02/21/18 06:25 PT 14.6 SECONDS (9.4-12.5) H 02/21/18 09:45 INR 1.26 02/21/18 09:45 APTT 30.1 Seconds (25.1-36.5) 02/21/18 09:45 - Constitutional Appears: No Acute Distress - Head Exam Head Exam: NORMOCEPHALIC - Eye Exam Eye Exam: Normal appearance. absent: Scleral icterus - ENT Exam ENT Exam: Mucous Membranes Moist - Neck Exam Neck Exam: Normal Inspection - Respiratory Exam Respiratory Exam: NORMAL BREATHING PATTERN. absent: Respiratory Distress - Cardiovascular Exam Cardiovascular Exam: +S1, +S2 - GI/Abdominal Exam GI & Abdominal Exam: Soft, Normal Bowel Sounds. absent: Guarding, Tenderness, Rebound - Extremities Exam Extremities Exam: Normal Capillary Refill. absent: Calf Tenderness, Pedal Edema - Neurological Exam Neurological Exam: Alert, Awake, Oriented x3 - Skin Skin Exam: Dry, Warm Assessment and Plan - Assessment and Plan (Free Text) Assessment: ASSESSMENT: Resolved Abdominal Pain Resolved Nausea/Vomiting Gastric Bypass Gastric Erosion Hypercoaguable state Pulmonary nodules Asthma PLAN: advance to soft low residual diet continue PPI monitor electrolytes and replace as needed on Eliquis continue IVF for hydration on Colace s/p ct chest for FU pulmonary nodule discuss w/ patient regarding outpt MR enterography. Seen and discussed w/ Dr. Sanchez.
[2018-02-21 12:17] LABS: FOLATE > 20.0 ng/mL
[2018-02-21] MEDS ORDERED: Potassium Chloride 20 mEq ER Tab PO ONE (13:19)
--- NOTE | 2018-02-21 13:42 | CP.PCM.CON ---
History of Present Illness - History of Present Illness History of Present Illness: Heme/Onc Consult Note for Dr. Malave -- Roldan Lara DO PGY2 CC: abdominal pain, diarrhea, nausea, vomiting HPI: Patient is a 52 year old female with a past medical history of HTN, CVA, asthma, hypothyroidism, anemia, paroxysmal atrial fibrillation, bipolar, gastric bypass, hypercoagulable state on Eliquis, history of pneumonia, kidney stones, osteoporosis, depression, schizophrenia, presented to the ED with diffuse abdominal pain with recurrent nausea and vomiting for 2 days. Patient states that she had 3-4 episodes of diarrhea prior to admission but has resolved since. Chest X ray showed small nodules in the right lung base, the largest measuring 7 mm, with no acute process. CT of the abdomen and pelvis showed no intra-abdominal findings and lung nodules at the right lung base. Patient states that today she is feeling a lot better and is no longer nauseous or vomiting. Patient had a normal bowel movement this AM and no longer feels abdominal pain. Patient was able to tolerate clear liquid diet. Patient states that she had mild leg pain but was not tender to palpation, swollen or erythematous. Patient admits to SOB, but denies CP, n/v/d, abdominal pain, fever , chills, CONNOLLY or dizziness. Hematology consulted due to history of hypercoagulable state on anticoagulation. PMH: HTN, CVA, asthma, hypothyroidism, anemia, atrial fibrillation, bipolar, gastric bypass, hypercoagulable state, history of pneumonia, kidney stones, osteoporosis, depression, schizophrenia Surgical Hx: gastric bypass surgery Family Hx: noncontributory Allergies: oral and IV dye, iodine, meperidine Social Hx: denies smoking, EtOH, illicit drugs Medications: aripiprazole, levothyroxine, docusate, duloxetine, atorvastatin, apixaban, clonazepam, zolpidem, pregabalin, pantoprazole Review of Systems - Review of Systems All systems: reviewed and no additional remarkable complaints except (12 point ROS reviewed and is negative other than what is stated in HPI.) Past Patient History - Infectious Disease Hx of Infectious Diseases: None - Tetanus Immunizations Tetanus Immunization: Unknown - Past Social History Smoking Status: Never Smoked - CARDIAC Hx Hypertension: Yes - PULMONARY Hx Asthma: Yes Hx Pneumonia: Yes - NEUROLOGICAL HX Cerebrovascular Accident: Yes - HEENT Hx HEENT Problems: Yes (eyeglasses) - RENAL Hx Chronic Kidney Disease: Yes Hx Kidney Stones: Yes - ENDOCRINE/METABOLIC Hx Hypothyroidism: Yes - HEMATOLOGICAL/ONCOLOGICAL Hx Anemia: Yes - INTEGUMENTARY Other/Comment: mid chest steri strips intact loop recorded implanted, multiple round brown spots ble - MUSCULOSKELETAL/RHEUMATOLOGICAL Hx Falls: No Hx Osteoporosis: Yes - GASTROINTESTINAL Hx Gastrointestinal Disorders: Yes (gi bleed, obese) Hx Gastroesophageal Reflux: Yes - GENITOURINARY/GYNECOLOGICAL Hx Genitourinary Disorders: No - PSYCHIATRIC Hx Anxiety: Yes Hx Bipolar Disorder: Yes Hx Depression: Yes Hx Schizophrenia: Yes Hx Substance Use: No - SURGICAL HISTORY Hx Gastric Bypass Surgery: Yes (07/26/1999 235 lb weight loss) Other/Comment: R chest port for iron infusions and hydration. - ANESTHESIA Hx Anesthesia Reactions: No Hx Malignant Hyperthermia: No Meds Allergies/Adverse Reactions: Allergies Allergy/AdvReac Type Severity Reaction Status Date / Time Iodinated Contrast- Oral and Allergy RASH Verified 02/20/18 07:39 IV Dye [Iodinated Contrast Media - IV Dye] iodine Allergy RASH Verified 02/20/18 07:39 meperidine Allergy RASH Verified 02/20/18 07:39 - Medications Medications: Current Medications Apixaban (Eliquis) 5 mg PO BID [facility] PRN Reason: Protocol Last Admin: 02/21/18 09:03 Dose: 5 mg Aripiprazole (Abilify) 30 mg PO HS [facility] Last Admin: 02/20/18 22:01 Dose: 30 mg Atorvastatin Calcium (Lipitor) 10 mg PO DIN [facility] Last Admin: 02/20/18 17:08 Dose: 10 mg Clonazepam (Klonopin) 0.25 mg PO TID PRN; Protocol PRN Reason: Anxiety Last Admin: 02/20/18 22:00 Dose: 0.25 mg Docusate Sodium (Colace) 100 mg PO BID [facility] Last Admin: 02/21/18 09:03 Dose: 100 mg Duloxetine HCl (Cymbalta) 60 mg PO DAILY [facility] Last Admin: 02/21/18 09:03 Dose: 60 mg Ceftriaxone Sodium (Rocephin 1 Gram Ivpb) 1 gm in 100 mls @ 100 mls/hr IVPB DAILY [facility] PRN Reason: Protocol Last Admin: 02/21/18 09:03 Dose: 100 mls/hr Levothyroxine Sodium (Synthroid) 125 mcg PO 0600 [facility] Last Admin: 02/21/18 05:46 Dose: 125 mcg Ondansetron HCl (Zofran Inj) 4 mg IVP Q6H PRN PRN Reason: Nausea/Vomiting Last Admin: 02/20/18 11:39 Dose: 4 mg Pantoprazole Sodium (Protonix Ec Tab) 40 mg PO 0600 [facility] Last Admin: 02/21/18 05:46 Dose: 40 mg Pregabalin (Lyrica) 50 mg PO DAILY [facility] Last Admin: 02/21/18 09:03 Dose: 50 mg Zolpidem Tartrate (Ambien) 5 mg PO HS PRN; Protocol PRN Reason: Insomnia Last Admin: 02/20/18 22:01 Dose: 5 mg Physical Exam - Constitutional Appears: No Acute Distress - Head Exam Head Exam: NORMAL INSPECTION - Eye Exam Eye Exam: Normal appearance - ENT Exam ENT Exam: Mucous Membranes Moist - Neck Exam Neck exam: Positive for: Normal Inspection - Respiratory Exam Respiratory Exam: Clear to Auscultation Bilateral. absent: Rales, Rhonchi, Wheezes - Cardiovascular Exam Cardiovascular Exam: RRR, +S1, +S2. absent: Gallop, Rubs, Systolic Murmur - GI/Abdominal Exam GI & Abdominal Exam: Soft. absent: Distended, Guarding, Rebound, Tenderness - Extremities Exam Extremities exam: Positive for: tenderness (b/l, no erythema or swelling) - Back Exam Back exam: NORMAL INSPECTION - Neurological Exam Neurological exam: Alert, CN II-XII Intact, Oriented x3 - Psychiatric Exam Psychiatric exam: Normal Affect, Normal Mood - Skin Skin Exam: Dry, Intact, Normal Color, Warm Results - Vital Signs Recent Vital Signs: Last Vital Signs Temp 97.6 F 02/21/18 06:00 Pulse 63 02/21/18 06:00 Resp 20 02/21/18 06:00 BP 126/78 02/21/18 06:00 Pulse Ox 94 L 02/21/18 06:00 - Labs Result Diagrams: 02/21/18 06:25 02/21/18 06:25 Labs: Laboratory Results - last 24 hr 02/20/18 02/21/18 02/21/18 16:17 06:25 06:25 WBC RBC Hgb Hct MCV MCH MCHC RDW Plt Count MPV PT INR APTT Sodium Potassium Chloride Carbon Dioxide Anion Gap BUN Creatinine Est GFR ( Amer) Est GFR (Non-Af Amer) POC Glucose (mg/dL) 103 Random Glucose Hemoglobin A1c 5.3 Calcium Iron 82 TIBC 169 L % Saturation 48 Triglycerides Cholesterol LDL Cholesterol Direct HDL Cholesterol Vitamin B12 Folate TSH 3rd Generation 02/21/18 02/21/18 02/21/18 06:25 06:25 06:25 WBC 6.6 D RBC 3.35 L Hgb 9.9 L Hct 30.5 L MCV 91.0 MCH 29.6 MCHC 32.5 RDW 14.9 H Plt Count 237 MPV 10.0 PT INR APTT Sodium 144 Potassium 3.5 L Chloride 108 H Carbon Dioxide 30 Anion Gap 10 BUN 7 Creatinine 0.8 Est GFR ( Amer) > 60 Est GFR (Non-Af Amer) > 60 POC Glucose (mg/dL) Random Glucose 78 Hemoglobin A1c Calcium 8.2 L Iron TIBC % Saturation Triglycerides 123 Cholesterol 187 LDL Cholesterol Direct 97 HDL Cholesterol 54 Vitamin B12 436 Folate > 20.0 TSH 3rd Generation 3.32 02/21/18 09:45 WBC RBC Hgb Hct MCV MCH MCHC RDW Plt Count MPV PT 14.6 H INR 1.26 APTT 30.1 Sodium Potassium Chloride Carbon Dioxide Anion Gap BUN Creatinine Est GFR ( Amer) Est GFR (Non-Af Amer) POC Glucose (mg/dL) Random Glucose Hemoglobin A1c Calcium Iron TIBC % Saturation Triglycerides Cholesterol LDL Cholesterol Direct HDL Cholesterol Vitamin B12 Folate TSH 3rd Generation Assessment & Plan - Assessment and Plan (Free Text) Assessment: 52 yo F with PMH of HTN, CVA, asthma, hypothyroidism, anemia, atrial fibrillation, bipolar, gastric bypass, hypercoagulable state, history of pneumonia, kidney stones, osteoporosis, depression, and schizophrenia admitted to [facility] for intractable n/v/d. Hematology consulted due to history of hypercoagulable state on eliquis. Plan: - H/H and coags stable - Cont Eliquis 5 mg PO BID - Advance diet as per GI - Medical management per primary - F/u outpatient Discussed case with attending. Roldan Lara, DO PGY2
[2018-02-21 14:39] VITALS: BP 116/79; PULSE 82; TEMP 98.3; O2SAT 96
--- NOTE | 2018-02-21 16:40 | PN ---
Copied To: Gisselle Sears MD Attending MD: Gisselle Sears MD DATE: 02/21/2018 PULMONARY PROGRESS NOTE REFERRING PHYSICIAN: Janelle Greene MD SUBJECTIVE: She is lying in the bed, head at 45 degrees. Night was unremarkable. Feels better. Refusing to use CPAP/BIPAP. Seen by OUTSIDE MAINTENANCE WORKER. Clear to be discharged. There is no more nausea, vomiting, diarrhea. No leg pain or leg swelling. OBJECTIVE: GENERAL: In no acute distress. VITAL SIGNS: Temperature is 98, heart rate 63, respiratory rate is 20, blood pressure 126/78, pulse oxymetry 94% on room air. HEENT: Moist mucous membranes. Crowded airway. Mallampati score is 4. NECK: Supple. No JVD. LUNGS: Have a fair airflow with rhonchi. HEART: S1 and S2. ABDOMEN: Soft, nontender. No organomegaly. EXTREMITIES: Trace edema. NEUROLOGICAL: Awake and alert. Follows simple command. MEDICATIONS: She is on Abilify 30 mg at bedtime, Ambien 5 mg at bedtime p.r.n., Colace 100 mg twice a day, Cymbalta 60 mg daily, Eliquis 5 mg twice a day, clonazepam 0.25 mg 3 times day p.r.n., Lipitor 10 mg daily, Lyrica 50 mg daily, Protonix 40 mg daily, Rocephin 1 g IV daily, Synthroid 125 mcg daily, Zofran 4 mg every 6 hours p.r.n. LABORATORY DATA: Shows hemoglobin is 9.9, hematocrit 30.5, WBC 6.9, platelet is 237. INR 1.26. Sodium 144, potassium 3.5, chloride 108, bicarbonate 30, BUN 7, creatinine 0.8, glucose 78, calcium is 8.2, cholesterol is 187, B12 is 436, folate is greater than 20, TSH is 3.32. Had CT scan of the chest done today, comparison was made with the study dated 07/2017. Some of the densities seen in the last exam disappeared and some new filtrates are there suggesting inflammatory process. IMPRESSION AND PLAN: Abdominal pain associated with nausea and vomiting, rule out gastroenteritis. history of gastric bypass surgery in the remote past, history of pulmonary embolism, chronic lung disease, asthma, may have sleep apnea syndrome with the new finding on the CT with new infiltrate and nodules, probably there is a chronic aspiration. Spoke to nurse practitioner. Requested to order the swallow evaluation to show there is no aspiration. Spoke to patient, informed her about findings. Recommended to keep head at 45 degrees while eating. May need followup x-ray to ensure stability of nodule. Sleep apnea precaution. Avoid sedation. Thank you and we will follow with you. Gisselle Sears MD
== END 2018-02-21 18:30 | disposition home or self-care (01) ==
LOC: ED 23:30 → ERH 02-20 04:57 → 5RNO 02-20 06:46
PROVIDERS: ADMIT Internal Medicine; ATTEND Internal Medicine
DX: R10.9 Unspecified abdominal pain (principal); R11.2 Nausea with vomiting, unspecified; I12.9 Hypertensive chronic kidney disease with stage 1 through stage 4 chronic kidney disease, or unspecified chronic kidney disease; N18.9 Chronic kidney disease, unspecified; J44.9 Chronic obstructive pulmonary disease, unspecified; I48.0 Paroxysmal atrial fibrillation; F31.9 Bipolar disorder, unspecified; E03.9 Hypothyroidism, unspecified; D68.59 Other primary thrombophilia; D64.9 Anemia, unspecified; K21.9 Gastro-esophageal reflux disease without esophagitis; M06.9 Rheumatoid arthritis, unspecified; E11.22 Type 2 diabetes mellitus with diabetic chronic kidney disease; R91.1 Solitary pulmonary nodule; M79.7 Fibromyalgia; M81.0 Age-related osteoporosis without current pathological fracture; K42.9 Umbilical hernia without obstruction or gangrene; Z98.84 Bariatric surgery status; Z87.01 Personal history of pneumonia (recurrent); Z86.73 Personal history of transient ischemic attack (TIA), and cerebral infarction without residual deficits; Z86.711 Personal history of pulmonary embolism; Z79.02 Long term (current) use of antithrombotics/antiplatelets; Z87.11 Personal history of peptic ulcer disease; Z82.49 Family history of ischemic heart disease and other diseases of the circulatory system; Z87.442 Personal history of urinary calculi
CPT/HCPCS: 36415; 71045; 71250; 74176; 80048; 80053; 80061; 82607; 82746; 82948; 83036; 83540; 83550; 83690; 84145; 84443; 85027; 85610; 85730; 92610; 96365; 96375; 96376; 99285; G0378; J0696; J2270; J2405; J7030; J7042

== ENCOUNTER 2018-03-21 15:03 | Emergency (ER) | payer MEDICARE, MEDICAID ==
[2018-03-21 15:04] VITALS: BMI 37.3
[2018-03-21 15:18] VITALS: RESP 18; TEMP 97.9
--- NOTE | 2018-03-21 15:38 | ED PDOC ---
Arrival/HPI - General Chief Complaint: Cough, Cold, Congestion Time Seen by Provider: 03/21/18 15:33 Historian: Patient - History of Present Illness Narrative History of Present Illness (Text): 52 y/o female with PMH of Afib, CVA, hypothyroidism, asthma, and GERD sent to the ED by Dr. Patrick to r/o PNA after presenting with productive cough and rigors in the office. Pt states she has been "fighting a cold" for the last 3 weeks but that it got worse last night with a cough productive of yellow sputum that occasionally makes her vomit. She was put on a 7 day course of Levaquin last week that she finished yesterday. Pt has associated dysuria, nausea, diarrhea, and chest pain when she coughs. Denies chills, SOB, abdominal pain, hematuria, back pain, headache, syncope, palpitations, dizziness, rash. Past Medical History - Provider Review Nursing Documentation Reviewed: Yes - Past History Past History: No Previous - Infectious Disease Hx of Infectious Diseases: None - Tetanus Immunization Tetanus Immunization: Unknown - Cardiac Hx Cardiac Disorders: Yes Hx Atrial Fibrillation: Yes (on Eliquis) - Pulmonary Hx Respiratory Disorders: Yes Hx Asthma: Yes Hx Pneumonia: Yes - Neurological Hx Neurological Disorder: Yes HX Cerebrovascular Accident: Yes - HEENT Hx HEENT Disorder: Yes (eyeglasses) - Renal Hx Renal Disorder: Yes Hx Kidney Stones: Yes - Endocrine/Metabolic Hx Endocrine Disorders: Yes Hx Hypothyroidism: Yes Other/Comment: LOW BLOOD SUGAR - Hematological/Oncological Hx Blood Disorders: Yes Hx Anemia: Yes - Integumentary Other/Comment: loop recorded implanted, - Musculoskeletal/Rheumatological Hx Musculoskeletal Disorders: Yes Hx Back Pain: Yes Hx Falls: No Hx Osteoporosis: Yes - Gastrointestinal Hx Gastrointestinal Disorders: Yes Hx Gastroesophageal Reflux: Yes - Genitourinary/Gynecological Hx Genitourinary Disorders: No - Psychiatric Hx Psychophysiologic Disorder: Yes Hx Anxiety: Yes Hx Bipolar Disorder: Yes Hx Depression: Yes Hx Schizophrenia: Yes Hx Substance Use: No - Surgical History Hx Gastric Bypass Surgery: Yes (07/26/1999 235 lb weight loss) Other/Comment: RIGHT chest port for iron infusions and hydration. - Anesthesia Hx Anesthesia: Yes Hx Anesthesia Reactions: No Hx Malignant Hyperthermia: No - Suicidal Assessment Feels Threatened In Home Enviroment: No Family/Social History - Physician Review Nursing Documentation Reviewed: Yes Family/Social History: No Known Family HX Smoking Status: Never Smoked Hx Alcohol Use: No Hx Substance Use: No Hx Substance Use Treatment: No Allergies/Home Meds Allergies/Adverse Reactions: Allergies Iodinated Contrast- Oral and IV Dye [Iodinated Contrast Media - IV Dye] Allergy (Verified 02/20/18 07:39) RASH iodine Allergy (Verified 02/20/18 07:39) RASH meperidine Allergy (Verified 02/20/18 07:39) RASH Home Medications: Home Meds Medication Instructions Recorded Confirmed Pregabalin [Lyrica] 50 mg PO DAILY 04/07/15 03/21/18 Pantoprazole [Protonix EC Tab] 40 mg PO DAILY 03/21/17 03/21/18 Cholecalciferol [Vitamin D 1000 IU] 50,000 units PO MON 03/21/18 03/21/18 Folic Acid 1 mg PO BID 03/21/18 03/21/18 Glucagon [Glucagen Diagnostic Kit] 1 mg SQ PRN 03/21/18 Levocetirizine Dihydrochloride 5 mg PO DAILY 03/21/18 03/21/18 [Xyzal] Metoprolol Tartrate [Lopressor] 25 mg PO BID 03/21/18 03/21/18 Montelukast Sodium [Singulair] 10 mg PO DAILY 03/21/18 03/21/18 Sucralfate [Carafate] 2 tsp PO Q6 03/21/18 03/21/18 oxyCODONE/Acetaminophen [Percocet 1 tab PO Q6 PRN 03/21/18 03/21/18 5/325 mg Tab] Review of Systems - Physician Review All systems were reviewed & negative as marked: Yes - Review of Systems Constitutional: Normal, Fevers Eyes: Normal ENT: Normal Respiratory: Normal Cardiovascular: Chest Pain Gastrointestinal: Normal. absent: Abdominal Pain, Constipation, Diarrhea, Nausea, Vomiting, Appetite Changes Genitourinary Female: Normal. absent: Dysuria, Frequency Musculoskeletal: Normal Physical Exam Vital Signs Temp Pulse Resp BP Pulse Ox 03/21/18 15:08 97.9 F 70 18 141/97 H 97 Temperature: Afebrile Blood Pressure: Normal Pulse: Regular Respiratory Rate: Normal Appearance: Positive for: Well-Appearing, Non-Toxic, Comfortable Pain Distress: None Mental Status: Positive for: Alert and Oriented X 3 - Systems Exam Head: Present: Atraumatic, Normocephalic Pupils: Present: PERRL Extroacular Muscles: Present: EOMI Conjunctiva: Present: Normal Mouth: Present: Moist Mucous Membranes Nose (Internal): Present: Normal Inspection, Moist Neck: Present: Normal Range of Motion. No: Meningeal Signs, MIDLINE TENDERNESS, Paraspinal Tenderness Respiratory/Chest: Present: Clear to Auscultation, Good Air Exchange. No: Respiratory Distress, Accessory Muscle Use Cardiovascular: Present: Regular Rate and Rhythm, Normal S1, S2. No: Murmurs Abdomen: Present: Normal Bowel Sounds. No: Tenderness, Distention, Peritoneal Signs Back: Present: Normal Inspection. No: CVA Tenderness, Midline Tenderness, Paraspinal Tenderness Upper Extremity: Present: Normal Inspection, NORMAL PULSES. No: Cyanosis, Edema Lower Extremity: Present: Normal Inspection, NORMAL PULSES. No: Edema Neurological: Present: GCS=15, CN II-XII Intact, Speech Normal Skin: Present: Warm, Dry, Normal Color. No: Rashes Lymphatic: No: Cervical Adenopathy Psychiatric: Present: Alert, Oriented x 3, Normal Insight, Normal Concentration Medical Decision Making ED Course and Treatment: 03/21/18 15:36 52 y/o female with PMH of Afib, CVA, hypothyroidism, asthma, and GERD sent to the ED by Dr. Patrick to r/o PNA after presenting with productive cough and rigors in the office. Pt states she has been "fighting a cold" for the last 3 weeks but that it got worse last night with a cough productive of yellow sputum that occasionally makes her vomit. She was put on a 7 day course of Levaquin last week that she finished yesterday. Pt has associated dysuria, nausea, diarrhea, and chest pain when she coughs. Denies chills, SOB, abdominal pain, back pain, headache, syncope, palpitations, dizziness, rash. Physical exam normal. Normal cardiac, pulm, and abdominal exam. will get ekg will get cxr will get labs (CBC,CMP) will get vbg and blood cultures will give Zofran for nausea will get flu swab 03/21/18 15:52 Pt reassessed, feels better. EKG read by Dr. Ventura as normal. UA shows small leuk esterase and blood -will treat with macrobid All other labs normal 03/21/18 19:08 CXR: FINDINGS: LUNGS: No active pulmonary disease. PLEURA: No significant pleural effusion identified. No pneumothorax apparent. CARDIOVASCULAR: Atherosclerotic aortic calcifications. Cardiomediastinal silhouette stably enlarged OSSEOUS STRUCTURES: Unchanged. VISUALIZED UPPER ABDOMEN: Normal. OTHER FINDINGS: Right internal jugular access chest port, unchanged IMPRESSION: No active disease. Impression: UTI Plan: Take Macrobid 100mg twice daily with food for 7 days Stay hydrated by increasing fluids Followup with Dr. Patrick tomorrow Return to ED if symptoms persist or worsen Tried calling Dr. Patrick twice with no response. Pt comfortable with discharge home after negative workup Spoke with pt and about plan, who agree and understand. Pt comfortable with discharge home and understands when to return. 03/22/18 01:[address] Patrick after pt discharged, he was made aware of pt plan. Said he will followup tomorrow. - RAD Interpretation Radiology Orders: 03/21/18 15:34 CHEST TWO VIEWS (PA/LAT) [RAD] Stat Disposition/Present on Arrival - Present on Arrival Any Indicators Present on Arrival: No History of DVT/PE: No History of Uncontrolled Diabetes: No Urinary Catheter: No History of Decub. Ulcer: No History Surgical Site Infection Following: None - Disposition Have Diagnosis and Disposition been Completed?: Yes Diagnosis: UTI (urinary tract infection) Disposition: HOME/ ROUTINE Disposition Time: 10:00 Patient Plan: Discharge Condition: IMPROVED Discharge Instructions (ExitCare): Urinary Tract Infections in Adults Additional Instructions: Take Macrobid 100mg twice daily with food for 7 days Stay hydrated by increasing fluids Followup with Dr. Patrick tomorrow Return to ED if symptoms persist or worsen Prescriptions: Nitrofurantoin Macrocrystals [Macrobid] 100 mg PO BID 7 Days cap Forms: [employer] (Citizen Of [place])
[2018-03-21 16:59] LABS: BASO # 0.05 K/mm3 (0.0-2.0); BASO % 0.5 % (0.0-3.0); EOS # 0.1 (0.0-0.7); GRAN # 7.37 (1.4-6.5); GRAN % 70.8 % (50.0-68.0); HEMOGLOBIN 11.8 g/dL (12.0-16.0); LYMPH # 2.3 (1.2-3.4); LYMPH % 21.9 % (22.0-35.0); MEAN CELL VOLUME 93.3 fl (80.0-105.0); MEAN CORPUSCULAR HEMOGLOBIN 29.4 pg (25.0-35.0); MEAN CORPUSCULAR HGB CONC 31.5 g/dl (31.0-37.0); MEAN PLATELET VOLUME 9.6 fl (7.0-11.0); MONO # 0.6 (0.1-0.6); MONO % 5.8 % (1.0-6.0); RBC 4.02 10^6/uL (3.5-6.1); RED CELL DISTRIBUTION WIDTH 15.3 % (11.5-14.5); WHITE BLOOD COUNT 10.4 10^3/ul (4.5-11.0)
[2018-03-21 17:07] LABS: VENOUS BLOOD GAS BASE EXCESS 4.5 mmol/L (0.0-2.0); VENOUS BLOOD GAS PO2 65 mm/Hg (30-55); VENOUS BLOOD PH 7.37 (7.32-7.43)
[2018-03-21 17:24] LABS: ALB/GLOB RATIO 1.1 (1.1-1.8); CALCIUM 9.2 mg/dL (8.4-10.5)
--- NOTE | 2018-03-21 19:06 | RAD ---
Date of service: 03/21/2018 HISTORY: productive cough COMPARISON: Chest radiograph dated 02/20/2018 TECHNIQUE: Chest PA and lateral FINDINGS: LUNGS: No active pulmonary disease. PLEURA: No significant pleural effusion identified. No pneumothorax apparent. CARDIOVASCULAR: Atherosclerotic aortic calcifications. Cardiomediastinal silhouette stably enlarged OSSEOUS STRUCTURES: Unchanged. VISUALIZED UPPER ABDOMEN: Normal. OTHER FINDINGS: Right internal jugular access chest port, unchanged IMPRESSION: No active disease.
[2018-03-21 19:59] LABS: URINE BILIRUBIN NEGATIVE (NEGATIVE); URINE BLOOD TRACE-INTACT (NEGATIVE); URINE GLUCOSE (UA) NEGATIVE (NEGATIVE); URINE LEUKOCYTE ESTERASE SMALL Leu/uL (NEGATIVE); URINE PROTEIN NEGATIVE mg/dL (<30 mg/dL); URINE UROBILINOGEN 0.2 E.U./dL (<1 E.U./dL)
[2018-03-21 20:05] LABS: URINE APPEARANCE CLEAR (CLEAR); URINE COLOR YELLOW (YELLOW)
[2018-03-21 20:13] LABS: URINE BACTERIA FEW (NEG)
[2018-03-21 22:44] VITALS: BP 100/68; PULSE 71
[2018-03-21 22:59] VITALS: O2SAT 98
--- NOTE | 2018-03-22 09:21 | CARD ---
APPROVED REPORT Date of service: 03/21/2018 EKG Measurement Heart [id number] <Conclusion> Normal sinus rhythm NSSTW changes
== END 2018-03-21 22:56 | disposition home or self-care (01) ==
LOC: ED 15:03
DX: N39.0 Urinary tract infection, site not specified (principal); I48.91 Unspecified atrial fibrillation; E03.9 Hypothyroidism, unspecified

== ENCOUNTER 2018-04-19 11:26 | Inpatient (IN) | payer MEDICARE, MEDICAID ==
[2018-04-19] MEDS ORDERED: Sodium Chloride 0.9% 500 ML IV STA (12:15)
--- NOTE | 2018-04-19 12:26 | ED PDOC ---
Arrival/HPI - General Chief Complaint: Abdominal Pain Time Seen by Provider: 04/19/18 11:30 Historian: Patient - History of Present Illness Narrative History of Present Illness (Text): 04/19/18 12:10 Patient is a 52 year old female with a past medical history of Afib, CVA, hypothyroidism, asthma, gastric bypass (1999), and GERD who presents to the Emergency Department with complaints of abdominal pain associated with vomiting , loss of appetite, and diarrhea since the past 4 days. Patient states symptoms emerged after eating a bowl of clam chowder and has been progressively worsening since then. Patient now reports watery stool and is unable to keep any fluids down, prompting her to present to the Emergency Department for evaluation. Patient additionally informs shortness of breath, and cough since yesterday. Patient notes that she is also experiencing head and back pain. Patient denies any fever, chest pain, hemoptysis or any dizziness. Denies hematemesis, hematochezia, or any urinary symptoms. Denies any other complaints. PMD: Dr. Greene Time/Duration: < week Symptom Onset: Gradual Symptom Course: Unchanged Activities at Onset: Light Context: Home Past Medical History - Provider Review Nursing Documentation Reviewed: Yes - Past History Past History: No Previous - Infectious Disease Hx of Infectious Diseases: None - Tetanus Immunization Tetanus Immunization: Unknown - Cardiac Hx Cardiac Disorders: Yes Hx Atrial Fibrillation: Yes - Pulmonary Hx Respiratory Disorders: Yes Hx Asthma: Yes Hx Pneumonia: Yes - Neurological Hx Neurological Disorder: Yes HX Cerebrovascular Accident: Yes - HEENT Hx HEENT Disorder: Yes - Renal Hx Renal Disorder: Yes Hx Kidney Stones: Yes - Endocrine/Metabolic Hx Endocrine Disorders: Yes Hx Hypothyroidism: Yes Other/Comment: LOW BLOOD SUGAR - Hematological/Oncological Hx Blood Disorders: Yes Hx Anemia: Yes - Integumentary Other/Comment: loop recorded implanted, - Musculoskeletal/Rheumatological Hx Musculoskeletal Disorders: Yes Hx Back Pain: Yes Hx Falls: No Hx Osteoporosis: Yes - Gastrointestinal Hx Gastrointestinal Disorders: Yes Hx Gastroesophageal Reflux: Yes - Genitourinary/Gynecological Hx Genitourinary Disorders: No - Psychiatric Hx Psychophysiologic Disorder: Yes Hx Anxiety: Yes Hx Bipolar Disorder: Yes Hx Depression: Yes Hx Schizophrenia: Yes Hx Substance Use: No - Surgical History Hx Gastric Bypass Surgery: Yes Hx Vascular Access Device: Yes - Anesthesia Hx Anesthesia: Yes Hx Anesthesia Reactions: No Hx Malignant Hyperthermia: No - Suicidal Assessment Feels Threatened In Home Enviroment: No Family/Social History - Physician Review Nursing Documentation Reviewed: Yes Family/Social History: No Known Family HX Smoking Status: Never Smoked Hx Alcohol Use: No Hx Substance Use: No Hx Substance Use Treatment: No Allergies/Home Meds Allergies/Adverse Reactions: Allergies Iodinated Contrast- Oral and IV Dye [Iodinated Contrast Media - IV Dye] Allergy (Verified 04/19/18 11:34) RASH iodine Allergy (Verified 04/19/18 11:34) RASH meperidine Allergy (Verified 04/19/18 11:34) RASH Home Medications: Home Meds Medication Instructions Recorded Confirmed Pregabalin [Lyrica] 50 mg PO DAILY 04/07/15 04/19/18 Pantoprazole [Protonix EC Tab] 40 mg PO DAILY 03/21/17 04/19/18 Cholecalciferol [Vitamin D 1000 IU] 50,000 units PO MON 03/21/18 04/19/18 Folic Acid 1 mg PO BID 03/21/18 04/19/18 Glucagon [Glucagen Diagnostic Kit] 1 mg SQ PRN PRN 03/21/18 04/19/18 Levocetirizine Dihydrochloride 5 mg PO DAILY 03/21/18 04/19/18 [Xyzal] Metoprolol Tartrate [Lopressor] 25 mg PO BID 03/21/18 04/19/18 Sucralfate [Carafate] 2 tsp PO Q6 03/21/18 04/19/18 oxyCODONE/Acetaminophen [Percocet 1 tab PO Q6 PRN 03/21/18 04/19/18 5/325 mg Tab] DULoxetine [Cymbalta] 60 mg PO BID 04/19/18 04/19/18 clonazePAM [Klonopin] 1 mg PO HS PRN 04/19/18 04/19/18 Review of Systems - Review of Systems Constitutional: absent: Fevers Eyes: absent: Vision Changes Respiratory: SOB, Cough Cardiovascular: absent: Chest Pain Gastrointestinal: Abdominal Pain, Diarrhea, Nausea, Vomiting, Appetite Changes. absent: Hematochezia, Hematemesis Genitourinary Female: absent: Dysuria, Hematuria Musculoskeletal: Back Pain. absent: Neck Pain Neurological: Headache. absent: Dizziness Endocrine: absent: Polyuria Psychiatric: absent: Anxiety, Depression Physical Exam - Physical Exam Narrative Physical Exam (Text): 04/19/18 12:10 Head: Atraumatic. Normocephalic. Eyes: PERRL. EOMI. Conjunctivae are pale. ENT: Mucous membranes are dry. Oropharynx is clear and symmetric. Neck: Supple. Full ROM. No JVD. No lymphadenopathy. Cardiovascular: Tachycardic with systolic murmur. Regular rhythm. Distal pulses are 2+ and symmetric. Pulmonary/Chest: No evidence of respiratory distress. Diminished at bases. No wheezing, rales or rhonchi. Abdominal: Soft and mildly distended. Diffuse tenderness. No rebound, guarding, or rigidity. No organomegaly. Good bowel sounds. Rectal: no gross bleeding Back: No CVA tenderness. Extremities: Non pitting bilateral leg edema. No cyanosis. No clubbing. Full range of motion in all extremities. No calf tenderness. Skin: Skin is pale, warm, and dry. No petechiae. No purpura. Neurological: Alert, awake, and oriented. Normal speech. Motor and sensory exam intact. Psychiatric: Good eye contact. Normal interaction, affect, and behavior. Vital Signs Reviewed: Yes Vital Signs Temp Pulse Resp BP Pulse Ox 04/19/18 11:43 99.3 F 103 H 17 97/64 L 80 L Temperature: Afebrile Blood Pressure: Hypotensive Pulse: Tachycardic Respiratory Rate: Normal Appearance: Positive for: Ill-Appearing Pain Distress: Mild Mental Status: Positive for: Alert and Oriented X 3 Medical Decision Making ED Course and Treatment: 04/19/18 12:10 Impression: 7o year old female who presents to the Emergency Department with complaints of abdominal pain, vomiting, and diarrhea. Differential Diagnosis included but are not limited to: Sepsis Dehydration Gastroenteritis colitis Plan: -- Labs -- VBG -- EKG -- CT of abdomen and Pelvis -- Chest X-ray -- Blood Culture -- Urine Culture -- IV fluids -- Zofran -- Influenza A B -- UA -- Reassess and disposition Prior Visits: Notes and results from previous visits were reviewed. Progress Notes: Patient with minimal abdominal discomfort. Mildly hypotensive. Tachycardia improved after iv fluid bolus. She is afebrile in the ED. No peritoneal signs. Leukocytosis noted but initial lactate is unremarkable. IV fluids continued. Blood sugar monitored. Patient's cxr suggestive of bilateral infiltrates. She does not exhibit respiratory distress. Saturations improved on nasal cannula. Will admit to telemetry bed due to risk of sepsis, treatment for pneumonia, monitoring of blood sugars. DR. Greene, PMMolly, accepts patient to her service, will consult Dr. Malave's service, who has been updated. 04/19/18 21:19 Reassessment Condition: Re-examined - RAD Interpretation Narrative RAD Interpretations (Text): 04/19/18 14:42 Chest X-ray reviewed by radiologist, shows: FINDINGS: LINES AND TUBES: The right-sided MediPort terminates in the SVC.. LUNG AND PLEURA: The lungs are well inflated. There is confluent airspace disease in the right lower lobe. The left lung is clear no pleural effusion or pneumothorax. HEART AND MEDIASTINUM: The heart is not enlarged. No aortic atherosclerotic calcification present. The hilar and mediastinal contours are within normal limits. SKELETAL STRUCTURES: The bony structures are within normal limits for the patient's age. VISUALIZED UPPER ABDOMEN: Normal. OTHER FINDINGS: None. IMPRESSION: Right lower lobe pneumonia. Follow-up after medical management is recommended to ensure complete resolution. 04/19/18 14:46 CT of Abdomen and Pelvis without contrast reviewed, Shows: FINDINGS: LOWER THORAX: Bibasilar interstitial infiltrates. LIVER: Unremarkable. No gross lesion or ductal dilatation. GALLBLADDER AND BILE DUCTS: Mildly distended. PANCREAS: Unremarkable. No gross lesion or ductal dilatation. SPLEEN: Unremarkable. ADRENALS: Unremarkable. No mass. KIDNEYS AND URETERS: Punctate calculus in the interpolar region of the left kidney. No hydronephrosis. No solid mass. VASCULATURE: Unremarkable. No aortic aneurysm. No aortic atherosclerotic calcification or mural plaque present. BOWEL: Status post gastric bypass surgery. No obstruction. No gross mural thickening. APPENDIX: Unremarkable. Normal appendix. PERITONEUM: Unremarkable. No free fluid. No free air. LYMPH NODES: Unremarkable. No enlarged lymph nodes. BLADDER: Unremarkable. REPRODUCTIVE: Unremarkable. BONES: No acute fracture. OTHER FINDINGS: None. IMPRESSION: Bibasilar interstitial infiltrates. Mildly distended gallbladder. Status post gastric bypass surgery. Left nephrolithiasis. Radiology Orders: 04/19/18 12:12 ABD & PELVIS W/O PO OR IV CONT [CT] Stat CHEST TWO VIEWS (PA/LAT) [RAD] Stat Luster Repairer: Radiologist - EKG Interpretation EKG Interpretation (Text): 04/19/18 21:17 EKG at 1143 sinus tachycardia rate of [address] and t wave abnormality Interpreted by ED Physician: Yes Type: 12 lead EKG - Medication Orders Current Medication Orders: Sodium Chloride (Sodium Chloride 0.9%) 500 mls @ 1,000 mls/hr IV .Q30M STA Stop: 04/19/18 12:44 Dextrose/Sodium Chloride (Dextrose 5%/0.9% Ns 1000 Ml) 1,000 mls @ 100 mls/hr IV .Q10H KEITH - Scribe Statement The provider has reviewed the documentation as recorded by the Scribe Tracey Carrera with Deepa All medical record entries made by the Scribe were at my direction and personally dictated by me. I have reviewed the chart and agree that the record accurately reflects my personal performance of the history, physical exam, medical decision making, and the department course for this patient. I have also personally directed, reviewed, and agree with the discharge instructions and disposition. Disposition/Present on Arrival - Present on Arrival Any Indicators Present on Arrival: No History of DVT/PE: No History of Uncontrolled Diabetes: No Urinary Catheter: No History of Decub. Ulcer: No History Surgical Site Infection Following: None - Disposition Have Diagnosis and Disposition been Completed?: Yes Diagnosis: Pneumonia, Diarrhea Disposition: HOSPITALIZED Disposition Time: 14:30 Patient Plan: Admission, Telemetry Patient Problems: Current Active Problems Problem Status Onset Diarrhea Acute Pneumonia Acute Condition: SERIOUS
[2018-04-19] MEDS: Dextrose 5%/0.9% NS 1,000 ML IV SCH ×2 (12:58→22:19)
[2018-04-19 13:23] LABS: VENOUS BLOOD GAS BASE EXCESS 1.9 mmol/L (0.0-2.0); VENOUS BLOOD GAS PO2 89 mm/Hg (30-55); VENOUS BLOOD PH 7.36 (7.32-7.43)
[2018-04-19 13:30] LABS: BASO # 0.02 K/mm3 (0.0-2.0); BASO % 0.1 % (0.0-3.0); EOS # 0.1 (0.0-0.7); EOS % 0.5 % (1.5-5.0); GRAN # 14.54 (1.4-6.5); GRAN % 85.4 % (50.0-68.0); HEMOGLOBIN 11.7 g/dL (12.0-16.0); LYMPH # 1.8 (1.2-3.4); LYMPH % 10.5 % (22.0-35.0); MEAN CORPUSCULAR HEMOGLOBIN 30.3 pg (25.0-35.0); MEAN CORPUSCULAR HGB CONC 32.2 g/dl (31.0-37.0); MEAN PLATELET VOLUME 9.9 fl (7.0-11.0); MONO # 0.6 (0.1-0.6); MONO % 3.5 % (1.0-6.0); RBC 3.86 10^6/uL (3.5-6.1); RED CELL DISTRIBUTION WIDTH 15.3 % (11.5-14.5)
[2018-04-19 13:40] LABS: INR 1.58; PARTIAL THROMBOPLASTIN TIME 33.2 Seconds (25.1-36.5); PROTHROMBIN TIME 18.3 SECONDS (9.4-12.5)
[2018-04-19 13:43] LABS: ALBUMIN 3.8 g/dL (3.0-4.8); ALT/SGPT 18 U/L (7-56); AMYLASE 66 U/L (35-125); AST/SGOT 18 U/L (14-36); BLOOD UREA NITROGEN 21 mg/dL (7-21); GFR NON-AFRICAN AMERICAN 53; LIPASE 20 U/L (23-300)
[2018-04-19 13:44] LABS: TROPONIN I < 0.01 ng/mL
--- NOTE | 2018-04-19 14:18 | RAD ---
HISTORY: Cough and shortness of breath COMPARISON: 03/21/2018. TECHNIQUE: Chest PA and lateral FINDINGS: LINES AND TUBES: The right-sided MediPort terminates in the SVC.. LUNG AND PLEURA: The lungs are well inflated. There is confluent airspace disease in the right lower lobe. The left lung is clear no pleural effusion or pneumothorax. HEART AND MEDIASTINUM: The heart is not enlarged. No aortic atherosclerotic calcification present. The hilar and mediastinal contours are within normal limits. SKELETAL STRUCTURES: The bony structures are within normal limits for the patient's age. VISUALIZED UPPER ABDOMEN: Normal. OTHER FINDINGS: None. IMPRESSION: Right lower lobe pneumonia. Follow-up after medical management is recommended to ensure complete resolution. The study was tagged to PA review folder.
--- NOTE | 2018-04-19 14:41 | CT ---
Date of service: 04/19/2018 PROCEDURE: CT Abdomen and Pelvis without intravenous contrast HISTORY: abdominal pain, sepsis COMPARISON: None. TECHNIQUE: Technique. Contrast dose: Radiation dose: Total exam DLP = 1046.43 mGy-cm. This CT exam was performed using one or more of the following dose reduction techniques: Automated exposure control, adjustment of the mA and/or kV according to patient size, and/or use of iterative reconstruction technique. FINDINGS: LOWER THORAX: Bibasilar interstitial infiltrates. LIVER: Unremarkable. No gross lesion or ductal dilatation. GALLBLADDER AND BILE DUCTS: Mildly distended. PANCREAS: Unremarkable. No gross lesion or ductal dilatation. SPLEEN: Unremarkable. ADRENALS: Unremarkable. No mass. KIDNEYS AND URETERS: Punctate calculus in the interpolar region of the left kidney. No hydronephrosis. No solid mass. VASCULATURE: Unremarkable. No aortic aneurysm. No aortic atherosclerotic calcification or mural plaque present. BOWEL: Status post gastric bypass surgery. No obstruction. No gross mural thickening. APPENDIX: Unremarkable. Normal appendix. PERITONEUM: Unremarkable. No free fluid. No free air. LYMPH NODES: Unremarkable. No enlarged lymph nodes. BLADDER: Unremarkable. REPRODUCTIVE: Unremarkable. BONES: No acute fracture. OTHER FINDINGS: None. IMPRESSION: Bibasilar interstitial infiltrates. Mildly distended gallbladder. Status post gastric bypass surgery. Left nephrolithiasis.
[2018-04-19] MEDS ORDERED: cefTRIAXone 1 gm 1 GM/100 ML BAG IVPB STA (15:14)
[2018-04-19] MEDS ORDERED: Azithromycin 500MG/NS 250ml 500 MG/250 ML BAG IVPB STA (15:15)
[2018-04-19] MEDS ORDERED: Albuterol-Ipratrop 3 mg / 0.5 (3 ml) UD IH STA (15:15)
[2018-04-19] MEDS ORDERED: Sodium Chloride 0.9% 1,000 ML IV STA (15:52)
--- NOTE | 2018-04-19 17:33 | CP.PCM.HP ---
History of Present Illness - History of Present Illness History of Present Illness: Hematology/Oncology History and Physical (Dr. Malave's Service) CC: Nausea/Vomiting/Diarrhea and Pneumonia HPI: Ms. Szymanski is a 52 year old female with a past medical history significant for HTN, CVA, asthma, hypothyroidism, iron deficiency anemia, paroxysmal atrial fibrillation on Eliquis, bipolar, gastric bypass, osteoporosis, depression, and schizophrenia who presented from Dr. Malave's office with four days of diffuse mild abdominal pain, nausea, vomiting and diarrhea that started after eating "sour" clam chowder. Patient reports that on Monday, she ate "sour" clam chowder and the next morning experienced diffuse mild abdominal pain and nausea with associated NBNB vomiting and watery diarrhea. Patient reports that she has had three to four episodes of both vomiting and diarrhea since. She denies any recent antibiotic use, fevers, chills, sick contacts, hematemesis, melena, hematochezia, or anorexia. Patient reports that she has had difficulty maintaining PO intake during this time. She further denies any headache, changes in vision, dysphagia, chest pain, palpitations, SOB, cough, wheezing, sputum production, changes in urine output, skin changes, or any numbness/tingling/weakness of any extremity. Of note, patient was found to have a leukocytosis of 17.0 on CBC and a right lower lobe pneumonia on Chest X-ray in the ED. A CT abdomen/pelvis showed left nephrolithiasis, mildly distended GB, s/p gastric bypass and bibasilar interstitial infiltrates. PMH: As stated above PSH: Gastric Bypass (1999) Family History: Noncontributory Social History: Denies any tobacco, alcohol or illicit drug use Allergies: oral and IV dye, iodine, and meperidine Home Medications: As per MAR Present on Admission - Present on Admission Any Indicators Present on Admission: No Review of Systems - Review of Systems Review of Systems: As stated in HPI, otherwise negative Past Patient History - Infectious Disease Hx of Infectious Diseases: None - Tetanus Immunizations Tetanus Immunization: Unknown - Past Social History Smoking Status: Never Smoked - CARDIAC Hx Cardiac Disorders: Yes Hx Atrial Fibrillation: Yes - PULMONARY Hx Respiratory Disorders: Yes Hx Asthma: Yes Hx Pneumonia: Yes - NEUROLOGICAL Hx Neurological Disorder: Yes HX Cerebrovascular Accident: Yes - HEENT Hx HEENT Problems: Yes - RENAL Hx Chronic Kidney Disease: Yes Hx Kidney Stones: Yes - ENDOCRINE/METABOLIC Hx Endocrine Disorders: Yes Hx Hypothyroidism: Yes Other/Comment: LOW BLOOD SUGAR - HEMATOLOGICAL/ONCOLOGICAL Hx Blood Disorders: Yes Hx Anemia: Yes - INTEGUMENTARY Other/Comment: loop recorded implanted, - MUSCULOSKELETAL/RHEUMATOLOGICAL Hx Musculoskeletal Disorders: Yes Hx Back Pain: Yes Hx Falls: No Hx Osteoporosis: Yes - GASTROINTESTINAL Hx Gastrointestinal Disorders: Yes Hx Gastroesophageal Reflux: Yes - GENITOURINARY/GYNECOLOGICAL Hx Genitourinary Disorders: No - PSYCHIATRIC Hx Psychophysiologic Disorder: Yes Hx Anxiety: Yes Hx Bipolar Disorder: Yes Hx Depression: Yes Hx Schizophrenia: Yes Hx Substance Use: No - SURGICAL HISTORY Hx Gastric Bypass Surgery: Yes Hx Vascular Access Device: Yes - ANESTHESIA Hx Anesthesia: Yes Hx Anesthesia Reactions: No Hx Malignant Hyperthermia: No Meds Allergies/Adverse Reactions: Allergies Allergy/AdvReac Type Severity Reaction Status Date / Time Iodinated Contrast- Oral and Allergy RASH Verified 04/19/18 11:34 IV Dye [Iodinated Contrast Media - IV Dye] iodine Allergy RASH Verified 04/19/18 11:34 meperidine Allergy RASH Verified 04/19/18 11:34 Physical Exam - Constitutional Appears: Non-toxic, No Acute Distress - Head Exam Head Exam: ATRAUMATIC, NORMOCEPHALIC - Eye Exam Eye Exam: EOMI, Normal appearance - ENT Exam ENT Exam: Mucous Membranes Dry - Neck Exam Neck exam: Positive for: Full Rom. Negative for: Lymphadenopathy, Tenderness - Respiratory Exam Respiratory Exam: Decreased Breath Sounds (RLL), Rhonchi (RLL), NORMAL BREATHING PATTERN. absent: Accessory Muscle Use, Chest Wall Tenderness, Clear to Auscultation Bilateral, Prolonged Expiratory Phase, Rales, Wheezes, Stridor - Cardiovascular Exam Cardiovascular Exam: RRR, +S2, +S4. absent: Bradycardia, Tachycardia - GI/Abdominal Exam GI & Abdominal Exam: Normal Bowel Sounds, Soft, Tenderness (LLQ). absent: Distended, Firm, Guarding, Rebound, Rigid - Extremities Exam Extremities exam: Positive for: normal capillary refill, pedal edema (Trace non- pitting edema bilaterally extending to ankles). Negative for: calf tenderness, tenderness - Neurological Exam Neurological exam: Alert, Oriented x3 - Psychiatric Exam Psychiatric exam: Normal Affect, Normal Mood - Skin Skin Exam: Dry, Intact, Warm Results - Vital Signs Recent Vital Signs: Last Vital Signs Temp 98.8 F 04/19/18 16:34 Pulse 80 04/19/18 17:10 Resp 16 04/19/18 17:10 BP 105/56 L 04/19/18 17:10 Pulse Ox 90 L 04/19/18 17:10 - Labs Result Diagrams: 04/19/18 12:45 04/19/18 12:45 Labs: Laboratory Results - last 24 hr 04/19/18 04/19/18 04/19/18 12:22 12:45 12:45 WBC 17.0 H D RBC 3.86 Hgb 11.7 L Hct 36.3 MCV 94.0 MCH 30.3 MCHC 32.2 RDW 15.3 H Plt Count 243 MPV 9.9 Gran % 85.4 H Lymph % (Auto) 10.5 L [place] % (Auto) 3.5 Eos % (Auto) 0.5 L Baso % (Auto) 0.1 Gran # 14.54 H Lymph # (Auto) 1.8 [place] # (Auto) 0.6 Eos # (Auto) 0.1 Baso # (Auto) 0.02 PT 18.3 H INR 1.58 APTT 33.2 pO2 VBG pH VBG pCO2 VBG HCO3 VBG Total CO2 VBG O2 Sat (Calc) VBG Base Excess VBG Potassium Sodium Chloride Glucose Lactate FiO2 Potassium Carbon Dioxide Anion Gap BUN Creatinine Est GFR ( Amer) Est GFR (Non-Af Amer) POC Glucose (mg/dL) 60 L Random Glucose Calcium Magnesium Total Bilirubin AST ALT Alkaline Phosphatase Lactate Dehydrogenase Total Creatine Kinase Troponin I Total Protein Albumin Globulin Albumin/Globulin Ratio Amylase Lipase Venous Blood Potassium Influenza Typ A,B (EIA) Blood Type Antibody Screen BBK History Checked 04/19/18 04/19/18 04/19/18 12:45 12:45 12:45 WBC RBC Hgb Hct MCV MCH MCHC RDW Plt Count MPV Gran % Lymph % (Auto) [place] % (Auto) Eos % (Auto) Baso % (Auto) Gran # Lymph # (Auto) [place] # (Auto) Eos # (Auto) Baso # (Auto) PT INR APTT pO2 89 H VBG pH 7.36 VBG pCO2 50.0 VBG HCO3 28.2 H VBG Total CO2 29.7 H VBG O2 Sat (Calc) 97.7 H VBG Base Excess 1.9 VBG Potassium 3.8 Sodium 141.0 140 Chloride 106.0 105 Glucose 96 Lactate 0.8 FiO2 21.0 Potassium 3.7 Carbon Dioxide 28 Anion Gap 11 BUN 21 Creatinine 1.1 Est GFR ( Amer) > 60 Est GFR (Non-Af Amer) 53 POC Glucose (mg/dL) Random Glucose 99 Calcium 9.0 Magnesium 2.0 Total Bilirubin 0.6 AST 18 ALT 18 Alkaline Phosphatase 107 Lactate Dehydrogenase 523 Total Creatine Kinase 73 Troponin I < 0.01 Total Protein 7.5 Albumin 3.8 Globulin 3.7 Albumin/Globulin Ratio 1.0 L Amylase 66 Lipase 20 L Venous Blood Potassium 3.8 Influenza Typ A,B (EIA) Negative for flu a/b Blood Type Antibody Screen BBK History Checked 04/19/18 04/19/18 13:00 14:14 WBC RBC Hgb Hct MCV MCH MCHC RDW Plt Count MPV Gran % Lymph % (Auto) [place] % (Auto) Eos % (Auto) Baso % (Auto) Gran # Lymph # (Auto) [place] # (Auto) Eos # (Auto) Baso # (Auto) PT INR APTT pO2 VBG pH VBG pCO2 VBG HCO3 VBG Total CO2 VBG O2 Sat (Calc) VBG Base Excess VBG Potassium Sodium Chloride Glucose Lactate FiO2 Potassium Carbon Dioxide Anion Gap BUN Creatinine Est GFR ( Amer) Est GFR (Non-Af Amer) POC Glucose (mg/dL) 75 Random Glucose Calcium Magnesium Total Bilirubin AST ALT Alkaline Phosphatase Lactate Dehydrogenase Total Creatine Kinase Troponin I Total Protein Albumin Globulin Albumin/Globulin Ratio Amylase Lipase Venous Blood Potassium Influenza Typ A,B (EIA) Blood Type A NEGATIVE Antibody Screen Negative BBK History Checked Patient has bt Assessment & Plan - Assessment and Plan (Free Text) Assessment: 52 year old female with a past medical history significant for HTN, CVA, asthma, hypothyroidism, iron deficiency anemia, paroxysmal atrial fibrillation on Eliquis, bipolar, gastric bypass, osteoporosis, depression, and schizophrenia who presented from Dr. Malave's office with four days of diffuse mild abdominal pain, nausea, vomiting and diarrhea that started after eating "sour" clam chowder. Patient was found to have a leukocytosis of 17.0 on CBC and a right lower lobe pneumonia on Chest X-ray in the ED. A CT abdomen/pelvis showed left nephrolithiasis, mildly distended GB, s/p gastric bypass and bibasilar interstitial infiltrates. - Date & Time Date: 04/19/18 Time: 17:33
--- NOTE | 2018-04-19 19:23 | CP.PCM.CON ---
History of Present Illness - History of Present Illness History of Present Illness: Hematology/Oncology Consultation (Dr. Malave's Service) CC: Nausea/Vomiting/Diarrhea and Pneumonia HPI: Ms. Szymanski is a 52 year old female with a past medical history significant for HTN, CVA, asthma, hypothyroidism, iron deficiency anemia, paroxysmal atrial fibrillation on Eliquis, bipolar, gastric bypass, osteoporosis, depression, and schizophrenia who presented from Dr. Malave's office with four days of diffuse mild abdominal pain, nausea, vomiting and diarrhea that started after eating "sour" clam chowder. Patient reports that on Monday, she ate "sour" clam chowder and the next morning experienced diffuse mild abdominal pain and nausea with associated NBNB vomiting and watery diarrhea. Patient reports that she has had three to four episodes of both vomiting and diarrhea since. She denies any recent antibiotic use, fevers, chills, sick contacts, hematemesis, melena, hematochezia, or anorexia. Patient reports that she has had difficulty maintaining PO intake during this time. She further denies any headache, changes in vision, dysphagia, chest pain, palpitations, SOB, cough, wheezing, sputum production, changes in urine output, skin changes, or any numbness/tingling/weakness of any extremity. Of note, patient was found to have a leukocytosis of 17.0 on CBC and a right lower lobe pneumonia on Chest X-ray in the ED. A CT abdomen/pelvis showed left nephrolithiasis, mildly distended GB, s/p gastric bypass and bibasilar interstitial infiltrates. PMH: As stated above PSH: Gastric Bypass (1999) Family History: Noncontributory Social History: Denies any tobacco, alcohol or illicit drug use Allergies: oral and IV dye, iodine, and meperidine Home Medications: As per MAR Review of Systems - Review of Systems Review of Systems: As stated in HPI, otherwise negative Past Patient History - Infectious Disease Hx of Infectious Diseases: None - Tetanus Immunizations Tetanus Immunization: Unknown - Past Social History Smoking Status: Never Smoked - CARDIAC Hx Cardiac Disorders: Yes Hx Atrial Fibrillation: Yes - PULMONARY Hx Respiratory Disorders: Yes Hx Asthma: Yes Hx Pneumonia: Yes - NEUROLOGICAL Hx Neurological Disorder: Yes HX Cerebrovascular Accident: Yes - HEENT Hx HEENT Problems: Yes - RENAL Hx Chronic Kidney Disease: Yes Hx Kidney Stones: Yes - ENDOCRINE/METABOLIC Hx Endocrine Disorders: Yes Hx Hypothyroidism: Yes Other/Comment: LOW BLOOD SUGAR - HEMATOLOGICAL/ONCOLOGICAL Hx Blood Disorders: Yes Hx Anemia: Yes - INTEGUMENTARY Other/Comment: loop recorded implanted, - MUSCULOSKELETAL/RHEUMATOLOGICAL Hx Musculoskeletal Disorders: Yes Hx Back Pain: Yes Hx Falls: No Hx Osteoporosis: Yes - GASTROINTESTINAL Hx Gastrointestinal Disorders: Yes Hx Gastroesophageal Reflux: Yes - GENITOURINARY/GYNECOLOGICAL Hx Genitourinary Disorders: No - PSYCHIATRIC Hx Psychophysiologic Disorder: Yes Hx Anxiety: Yes Hx Bipolar Disorder: Yes Hx Depression: Yes Hx Schizophrenia: Yes Hx Substance Use: No - SURGICAL HISTORY Hx Gastric Bypass Surgery: Yes Hx Vascular Access Device: Yes - ANESTHESIA Hx Anesthesia: Yes Hx Anesthesia Reactions: No Hx Malignant Hyperthermia: No Meds Allergies/Adverse Reactions: Allergies Allergy/AdvReac Type Severity Reaction Status Date / Time Iodinated Contrast- Oral and Allergy RASH Verified 04/19/18 11:34 IV Dye [Iodinated Contrast Media - IV Dye] iodine Allergy RASH Verified 04/19/18 11:34 meperidine Allergy RASH Verified 04/19/18 11:34 - Medications Medications: Current Medications Acetaminophen (Tylenol 325mg Tab) 650 mg PO Q6H PRN PRN Reason: Fever >100.4 F Albuterol/Ipratropium (Duoneb 3 Mg/0.5 Mg (3 Ml) Ud) 3 ml IH [id number] KEITH Apixaban (Eliquis) 5 mg PO BID KEITH; Protocol Last Admin: 04/19/18 18:56 Dose: 5 mg Aripiprazole (Abilify) 30 mg PO HS KEITH; Protocol Atorvastatin Calcium (Lipitor) 10 mg PO DIN KEITH Cholecalciferol (Vitamin D) 1,000 intlu PO MON KEITH Clonazepam (Klonopin) 1 mg PO HS PRN; Protocol PRN Reason: Agitation Folic Acid (Folic Acid) 1 mg PO BID KEITH Last Admin: 04/19/18 18:58 Dose: 1 mg Dextrose/Sodium Chloride (Dextrose 5%/0.9% Ns 1000 Ml) 1,000 mls @ 100 mls/hr IV .Q10H KEITH Last Admin: 04/19/18 12:58 Dose: 100 mls/hr Azithromycin (Zithromax 500mg In Ns) 500 mg in 250 mls @ 167 mls/hr IVPB DAILY KEITH; Protocol Meropenem (Merrem Iv 1 Gm Premix) 1 gm in 50 mls @ 100 mls/hr IVPB Q8 KEITH; Protocol Stop: 04/28/18 22:01 Vancomycin HCl (Vancomycin 1gm) 1 gm in 250 mls @ 167 mls/hr IVPB Q12H [facility]; Protocol Stop: 04/28/18 19:16 Levothyroxine Sodium (Synthroid) 125 mcg PO ACB KEITH Metoprolol Tartrate (Lopressor) 25 mg PO BID [facility] Last Admin: 04/19/18 18:56 Dose: 25 mg Ondansetron HCl (Zofran Odt) 4 mg PO Q8H PRN PRN Reason: Nausea/Vomiting Pantoprazole Sodium (Protonix Ec Tab) 40 mg PO 0600 KEITH Pregabalin (Lyrica) 50 mg PO DAILY KEITH Zolpidem Tartrate (Ambien) 10 mg PO HS PRN; Protocol PRN Reason: Insomnia Physical Exam - Constitutional Additional comments: Appears: Non-toxic, No Acute Distress - Head Exam Head Exam: ATRAUMATIC, NORMOCEPHALIC - Eye Exam Eye Exam: EOMI, Normal appearance - ENT Exam ENT Exam: Mucous Membranes Dry - Neck Exam Neck exam: Positive for: Full Rom. Negative for: Lymphadenopathy, Tenderness - Respiratory Exam Respiratory Exam: Decreased Breath Sounds (RLL), Rhonchi (RLL), NORMAL BREATHING PATTERN. absent: Accessory Muscle Use, Chest Wall Tenderness, Clear to Auscultation Bilateral, Prolonged Expiratory Phase, Rales, Wheezes, Stridor - Cardiovascular Exam Cardiovascular Exam: RRR, +S2, +S4. absent: Bradycardia, Tachycardia - GI/Abdominal Exam GI & Abdominal Exam: Normal Bowel Sounds, Soft, Tenderness (LLQ). absent: Distended, Firm, Guarding, Rebound, Rigid - Extremities Exam Extremities exam: Positive for: normal capillary refill, pedal edema (Trace non- pitting edema bilaterally extending to ankles). Negative for: calf tenderness, tenderness - Neurological Exam Neurological exam: Alert, Oriented x3 - Psychiatric Exam Psychiatric exam: Normal Affect, Normal Mood - Skin Skin Exam: Dry, Intact, Warm Results - Vital Signs Recent Vital Signs: Last Vital Signs Temp 98.8 F 04/19/18 16:34 Pulse 88 04/19/18 18:56 Resp 16 04/19/18 17:10 BP 100/65 04/19/18 18:56 Pulse Ox 90 L 04/19/18 17:10 - Labs Result Diagrams: 04/19/18 12:45 04/19/18 12:45 Labs: Laboratory Results - last 24 hr 04/19/18 04/19/18 04/19/18 12:22 12:45 12:45 WBC 17.0 H D RBC 3.86 Hgb 11.7 L Hct 36.3 MCV 94.0 MCH 30.3 MCHC 32.2 RDW 15.3 H Plt Count 243 MPV 9.9 Gran % 85.4 H Lymph % (Auto) 10.5 L [place] % (Auto) 3.5 Eos % (Auto) 0.5 L Baso % (Auto) 0.1 Gran # 14.54 H Lymph # (Auto) 1.8 [place] # (Auto) 0.6 Eos # (Auto) 0.1 Baso # (Auto) 0.02 PT 18.3 H INR 1.58 APTT 33.2 pO2 VBG pH VBG pCO2 VBG HCO3 VBG Total CO2 VBG O2 Sat (Calc) VBG Base Excess VBG Potassium Sodium Chloride Glucose Lactate FiO2 Potassium Carbon Dioxide Anion Gap BUN Creatinine Est GFR ( Amer) Est GFR (Non-Af Amer) POC Glucose (mg/dL) 60 L Random Glucose Calcium Magnesium Total Bilirubin AST ALT Alkaline Phosphatase Lactate Dehydrogenase Total Creatine Kinase Troponin I Total Protein Albumin Globulin Albumin/Globulin Ratio Amylase Lipase Venous Blood Potassium Influenza Typ A,B (EIA) Blood Type Antibody Screen BBK History Checked 04/19/18 04/19/18 04/19/18 12:45 12:45 12:45 WBC RBC Hgb Hct MCV MCH MCHC RDW Plt Count MPV Gran % Lymph % (Auto) [place] % (Auto) Eos % (Auto) Baso % (Auto) Gran # Lymph # (Auto) [place] # (Auto) Eos # (Auto) Baso # (Auto) PT INR APTT pO2 89 H VBG pH 7.36 VBG pCO2 50.0 VBG HCO3 28.2 H VBG Total CO2 29.7 H VBG O2 Sat (Calc) 97.7 H VBG Base Excess 1.9 VBG Potassium 3.8 Sodium 141.0 140 Chloride 106.0 105 Glucose 96 Lactate 0.8 FiO2 21.0 Potassium 3.7 Carbon Dioxide 28 Anion Gap 11 BUN 21 Creatinine 1.1 Est GFR ( Amer) > 60 Est GFR (Non-Af Amer) 53 POC Glucose (mg/dL) Random Glucose 99 Calcium 9.0 Magnesium 2.0 Total Bilirubin 0.6 AST 18 ALT 18 Alkaline Phosphatase 107 Lactate Dehydrogenase 523 Total Creatine Kinase 73 Troponin I < 0.01 Total Protein 7.5 Albumin 3.8 Globulin 3.7 Albumin/Globulin Ratio 1.0 L Amylase 66 Lipase 20 L Venous Blood Potassium 3.8 Influenza Typ A,B (EIA) Negative for flu a/b Blood Type Antibody Screen BBK History Checked 04/19/18 04/19/18 04/19/18 13:00 14:14 18:06 WBC RBC Hgb Hct MCV MCH MCHC RDW Plt Count MPV Gran % Lymph % (Auto) [place] % (Auto) Eos % (Auto) Baso % (Auto) Gran # Lymph # (Auto) [place] # (Auto) Eos # (Auto) Baso # (Auto) PT INR APTT pO2 VBG pH VBG pCO2 VBG HCO3 VBG Total CO2 VBG O2 Sat (Calc) VBG Base Excess VBG Potassium Sodium Chloride Glucose Lactate FiO2 Potassium Carbon Dioxide Anion Gap BUN Creatinine Est GFR ( Amer) Est GFR (Non-Af Amer) POC Glucose (mg/dL) 75 82 Random Glucose Calcium Magnesium Total Bilirubin AST ALT Alkaline Phosphatase Lactate Dehydrogenase Total Creatine Kinase Troponin I Total Protein Albumin Globulin Albumin/Globulin Ratio Amylase Lipase Venous Blood Potassium Influenza Typ A,B (EIA) Blood Type A NEGATIVE Antibody Screen Negative BBK History Checked Patient has bt Assessment & Plan - Assessment and Plan (Free Text) Assessment: 52 year old female with a past medical history significant for HTN, CVA, asthma, hypothyroidism, iron deficiency anemia, paroxysmal atrial fibrillation on Eliquis, bipolar, gastric bypass, osteoporosis, depression, and schizophrenia who presented from Dr. Malave's office with four days of diffuse mild abdominal pain, nausea, vomiting and diarrhea that started after eating "sour" clam chowder. Patient was found to have a leukocytosis of 17.0 on CBC and a right lower lobe pneumonia on Chest X-ray in the ED. A CT abdomen/pelvis showed left nephrolithiasis, mildly distended GB, s/p gastric bypass and bibasilar interstitial infiltrates. Plan: 1. RLL Pneumonia -Chest X-Ray PA/Lateral pending -Started on Zithromax, Merrem and Vancomycin -Duonebs Q4H -Blood, Sputum, Urine, Legionella, and Procalcitonin pending -Hematology/Oncology, ID and Pulmonology consulted, all recommendations appreciated 2. Nausea, Vomiting and Diarrhea -CT Abdomen/Pelvis with PO contrast findings noted -C.Diff serology pending -D5/NS at 100mls/hr -Zofran 4mg ODT PO Q8 PRN -Clear Liquid Diet -Aspiration precautions 3. History of Paroxysmal Atrial Fibrillation -Continue home Metoprolol -Continue home Eliquis 4. History of Bipolar Disorder -Continue home Abilify 5. History of SHERRY -Stable H/H on CBC -Will continue to monitor with daily CBC's 6. History of Anxiety -Continue home Klonopin 7. History of Insomnia -Continue home Ambien 8. History of Hypothyroidism -Continue home Synthroid GI Prophylaxis: Protonix DVT Prophylaxis: Eliquis Patient seen and case discussed with attending, Dr. Malave. Carlo Toth PGY2 - Date & Time Date: 04/19/18 Time: 19:26
[2018-04-19] MEDS: Albuterol-Ipratrop 3 mg / 0.5 (3 ml) UD IH SCH ×2 (19:50→23:36)
[2018-04-19 21:26] VITALS: BMI 37.1
[2018-04-19] MEDS ORDERED: Pneumococcal 23-Valent Vaccine IM ONE (21:27)
[2018-04-19] MEDS ORDERED: Influenza Vaccine 60 mcg/0.5 mL SYR (4YR UP) IM ONE (21:27)
[2018-04-19] MEDS: Vancomycin 1gm in NS 250ml 1 GM/250 ML BAG IVPB SCH (22:15)
[2018-04-19] MEDS: Meropenem IV 1 gm in NS 1 GM/50 ML BAG IVPB SCH (22:16)
[2018-04-20 00:27] LABS: URINE BILIRUBIN NEGATIVE (NEGATIVE); URINE BLOOD MODERATE (NEGATIVE); URINE GLUCOSE (UA) NEGATIVE (NEGATIVE); URINE LEUKOCYTE ESTERASE NEGATIVE Leu/uL (NEGATIVE); URINE PROTEIN TRACE mg/dL (<30 mg/dL); URINE UROBILINOGEN 0.2 E.U./dL (<1 E.U./dL)
[2018-04-20 00:31] LABS: URINE APPEARANCE SL CLOUDY (CLEAR); URINE COLOR YELLOW (YELLOW)
[2018-04-20 00:43] LABS: URINE BACTERIA OCC (NEG); URINE WBC 0 - 2 /hpf (0-6)
[2018-04-20] MEDS: Albuterol-Ipratrop 3 mg / 0.5 (3 ml) UD IH SCH ×5 (04:24→20:29)
[2018-04-20] MEDS: Meropenem IV 1 gm in NS 1 GM/50 ML BAG IVPB SCH ×3 (06:18→21:29)
[2018-04-20] MEDS: Vancomycin 1gm in NS 250ml 1 GM/250 ML BAG IVPB SCH ×2 (06:19→19:00)
[2018-04-20] MEDS: Pantoprazole 40 mg EC Tab PO SCH (06:20)
[2018-04-20 07:13] LABS: BASO # 0.03 K/mm3 (0.0-2.0); BASO % 0.3 % (0.0-3.0); EOS # 0.3 (0.0-0.7); EOS % 2.3 % (1.5-5.0); GRAN # 8.66 (1.4-6.5); GRAN % 75.3 % (50.0-68.0); LYMPH # 1.9 (1.2-3.4); LYMPH % 16.4 % (22.0-35.0); MEAN CELL VOLUME 96.4 fl (80.0-105.0); MEAN CORPUSCULAR HEMOGLOBIN 29.4 pg (25.0-35.0); MEAN CORPUSCULAR HGB CONC 30.5 g/dl (31.0-37.0); MONO # 0.7 (0.1-0.6); MONO % 5.7 % (1.0-6.0); RBC 3.3 10^6/uL (3.5-6.1); RED CELL DISTRIBUTION WIDTH 15.7 % (11.5-14.5); WHITE BLOOD COUNT 11.5 10^3/uL (4.5-11.0)
[2018-04-20 07:18] LABS: HEMOGLOBIN 9.7 g/dL (12.0-16.0)
[2018-04-20 07:54] LABS: ALB/GLOB RATIO 0.9 (1.1-1.8); ALBUMIN 3.1 g/dL (3.0-4.8); ALT/SGPT 14 U/L (7-56); AST/SGOT 17 U/L (14-36); BLOOD UREA NITROGEN 15 mg/dL (7-21); GFR NON-AFRICAN AMERICAN > 60
[2018-04-20] MEDS: Levothyroxine 125 MCG TAB PO SCH (08:03)
--- NOTE | 2018-04-20 08:29 | CP.PCM.CON ---
<Sudarshan Mosqueda - Last Filed: 04/20/18 17:36> History of Present Illness - History of Present Illness History of Present Illness: PGY-4 GI Fellow Consult Note Pt is a 52 yo WF with h/o gastric bypass (1999), chronic Fe def anemia (on intermittent Fe infusions via R port), HTN, CVA, pAF (on apixaban), bipolar, schizophrenia, osteoporosis, hypothyroid presenting with complaint of nausea, v omiting and diarrhea. She states that since Monday she has had multiple episode of n/v/d with non-bloody, sometime bilious emesis. Diarrhea is describes as watery brown. She reports one day she had 10+ episodes but is ususally around 4/day now. She reports some mild, diffuse crampy abd pain occasionally associated with symptoms. She states that she ate "sour" clam chowder on Monday; then her symptoms began the next morning. She states she was the only one who ate it. She denies any sick contacts, recent, travel antibiotic use, raw food consumption, melena nor hematochezia. 12 point ROS negative other than stated above Most recent Endos CSPY: 08/03/17 internal hemorrhoids, random biopsies negative for microscopic colitis EGD: 07/28/17 erosive gastropathy and jejunal erosion, biopsies negative MHx: See above SurgHx: Gastric Bypass (1999) Meds: Reviewed in chart FamHx: Denies GI problems SocHx: Denied x 3 All: IV contrast, meperidine, Iodine Past Patient History - Infectious Disease Hx of Infectious Diseases: None - Tetanus Immunizations Tetanus Immunization: Unknown - Past Social History Smoking Status: Never Smoked - CARDIAC Hx Cardiac Disorders: Yes Hx Atrial Fibrillation: Yes - PULMONARY Hx Respiratory Disorders: Yes Hx Asthma: Yes Hx Pneumonia: Yes - NEUROLOGICAL Hx Neurological Disorder: Yes HX Cerebrovascular Accident: Yes - HEENT Hx HEENT Problems: Yes - RENAL Hx Chronic Kidney Disease: Yes Hx Kidney Stones: Yes - ENDOCRINE/METABOLIC Hx Endocrine Disorders: Yes Hx Hypothyroidism: Yes Other/Comment: LOW BLOOD SUGAR - HEMATOLOGICAL/ONCOLOGICAL Hx Blood Disorders: Yes Hx Anemia: Yes - INTEGUMENTARY Other/Comment: loop recorded implanted, - MUSCULOSKELETAL/RHEUMATOLOGICAL Hx Musculoskeletal Disorders: Yes Hx Back Pain: Yes Hx Falls: No Hx Osteoporosis: Yes - GASTROINTESTINAL Hx Gastrointestinal Disorders: Yes Hx Gastroesophageal Reflux: Yes - GENITOURINARY/GYNECOLOGICAL Hx Genitourinary Disorders: No - PSYCHIATRIC Hx Psychophysiologic Disorder: Yes Hx Anxiety: Yes Hx Bipolar Disorder: Yes Hx Depression: Yes Hx Schizophrenia: Yes Hx Substance Use: No - SURGICAL HISTORY Hx Gastric Bypass Surgery: Yes Hx Vascular Access Device: Yes - ANESTHESIA Hx Anesthesia: Yes Hx Anesthesia Reactions: No Hx Malignant Hyperthermia: No Meds Allergies/Adverse Reactions: Allergies Allergy/AdvReac Type Severity Reaction Status Date / Time Iodinated Contrast- Oral and Allergy RASH Verified 04/19/18 11:34 IV Dye [Iodinated Contrast Media - IV Dye] iodine Allergy RASH Verified 04/19/18 11:34 meperidine Allergy RASH Verified 04/19/18 11:34 - Medications Medications: Current Medications Acetaminophen (Tylenol 325mg Tab) 650 mg PO Q6H PRN PRN Reason: Fever >100.4 F Last Admin: 04/20/18 06:33 Dose: 650 mg Albuterol/Ipratropium (Duoneb 3 Mg/0.5 Mg (3 Ml) Ud) 3 ml IH [id number] KEITH Last Admin: 04/20/18 04:24 Dose: Not Given Apixaban (Eliquis) 5 mg PO BID KEITH; Protocol Last Admin: 04/19/18 18:56 Dose: 5 mg Aripiprazole (Abilify) 30 mg PO HS KEITH; Protocol Last Admin: 04/19/18 22:17 Dose: 30 mg Atorvastatin Calcium (Lipitor) 10 mg PO DIN KEITH Cholecalciferol (Vitamin D) 1,000 intlu PO MON KEITH Clonazepam (Klonopin) 1 mg PO HS PRN; Protocol PRN Reason: Agitation Last Admin: 04/19/18 22:16 Dose: 1 mg Folic Acid (Folic Acid) 1 mg PO BID KEITH Last Admin: 04/19/18 18:58 Dose: 1 mg Dextrose/Sodium Chloride (Dextrose 5%/0.9% Ns 1000 Ml) 1,000 mls @ 100 mls/hr IV .Q10H KEITH Last Admin: 04/19/18 22:19 Dose: 100 mls/hr Azithromycin (Zithromax 500mg In Ns) 500 mg in 250 mls @ 167 mls/hr IVPB DAILY KEITH; Protocol Meropenem (Merrem Iv 1 Gm Premix) 1 gm in 50 mls @ 100 mls/hr IVPB Q8 KEITH; Protocol Stop: 04/28/18 22:01 Last Admin: 04/20/18 06:18 Dose: 100 mls/hr Vancomycin HCl (Vancomycin 1gm) 1 gm in 250 mls @ 167 mls/hr IVPB Q12H [facility]; Protocol Stop: 04/28/18 19:16 Last Admin: 04/20/18 06:19 Dose: 167 mls/hr Levothyroxine Sodium (Synthroid) 125 mcg PO ACB [facility] Last Admin: 04/20/18 08:03 Dose: 125 mcg Metoprolol Tartrate (Lopressor) 25 mg PO BID [facility] Last Admin: 04/19/18 18:56 Dose: 25 mg Ondansetron HCl (Zofran Odt) 4 mg PO Q8H PRN PRN Reason: Nausea/Vomiting Pantoprazole Sodium (Protonix Ec Tab) 40 mg PO 0600 [facility] Last Admin: 04/20/18 06:20 Dose: 40 mg Pregabalin (Lyrica) 50 mg PO DAILY [facility] Zolpidem Tartrate (Ambien) 10 mg PO HS PRN; Protocol PRN Reason: Insomnia Last Admin: 04/19/18 22:17 Dose: 10 mg Physical Exam - Constitutional Appears: Non-toxic, No Acute Distress Additional comments: Obese - Head Exam Head Exam: ATRAUMATIC, NORMAL INSPECTION - Eye Exam Eye Exam: EOMI, Normal appearance. absent: Conjunctival injection, Scleral icterus - ENT Exam ENT Exam: Mucous Membranes Moist. absent: Mucous Membranes Dry, Normal External Ear Exam - Respiratory Exam Respiratory Exam: Clear to Auscultation Bilateral, NORMAL BREATHING PATTERN. absent: Accessory Muscle Use - Cardiovascular Exam Cardiovascular Exam: REGULAR RHYTHM, RRR - GI/Abdominal Exam GI & Abdominal Exam: Normal Bowel Sounds, Soft. absent: Bruit, Diminished Bowel Sounds, Distended, Firm, Guarding, Hernia, Organomegaly, Pulsatile Mass, Rebound, Rigid, Tenderness - Extremities Exam Extremities exam: Positive for: normal inspection. Negative for: pedal edema - Neurological Exam Neurological exam: Alert, CN II-XII Intact - Psychiatric Exam Psychiatric exam: Normal Affect, Normal Mood - Skin Skin Exam: Normal Color, Warm Results - Vital Signs Recent Vital Signs: Last Vital Signs Temp 98 F 04/20/18 05:58 Pulse 80 04/20/18 05:58 Resp 18 04/20/18 05:58 BP 95/62 L 04/20/18 05:58 Pulse Ox 100 04/20/18 05:58 - Labs Result Diagrams: 04/20/18 06:40 04/20/18 06:40 Labs: Laboratory Results - last 24 hr 04/19/18 04/19/18 04/19/18 12:22 12:45 12:45 WBC 17.0 H D RBC 3.86 Hgb 11.7 L Hct 36.3 MCV 94.0 MCH 30.3 MCHC 32.2 RDW 15.3 H Plt Count 243 MPV 9.9 Gran % 85.4 H Lymph % (Auto) 10.5 L [place] % (Auto) 3.5 Eos % (Auto) 0.5 L Baso % (Auto) 0.1 Gran # 14.54 H Lymph # (Auto) 1.8 Valley # (Auto) 0.6 Eos # (Auto) 0.1 Baso # (Auto) 0.02 PT 18.3 H INR 1.58 APTT 33.2 pO2 VBG pH VBG pCO2 VBG HCO3 VBG Total CO2 VBG O2 Sat (Calc) VBG Base Excess VBG Potassium Sodium Chloride Glucose Lactate FiO2 Potassium Carbon Dioxide Anion Gap BUN Creatinine Est GFR ( Amer) Est GFR (Non-Af Amer) POC Glucose (mg/dL) 60 L Random Glucose Calcium Phosphorus Magnesium Total Bilirubin AST ALT Alkaline Phosphatase Lactate Dehydrogenase Total Creatine Kinase Troponin I Total Protein Albumin Globulin Albumin/Globulin Ratio Amylase Lipase Venous Blood Potassium Urine Color Urine Appearance Urine pH Ur Specific [place] Urine Protein Urine Glucose (UA) Urine Ketones Urine Blood Urine Nitrate Urine Bilirubin Urine Urobilinogen Ur Leukocyte Esterase Urine RBC Urine WBC Ur Epithelial Cells Urine Bacteria Influenza Typ A,B (EIA) Blood Type Antibody Screen BBK History Checked 04/19/18 04/19/18 04/19/18 12:45 12:45 12:45 WBC RBC Hgb Hct MCV MCH MCHC RDW Plt Count MPV Gran % Lymph % (Auto) Valley % (Auto) Eos % (Auto) Baso % (Auto) Gran # Lymph # (Auto) Valley # (Auto) Eos # (Auto) Baso # (Auto) PT INR APTT pO2 89 H VBG pH 7.36 VBG pCO2 50.0 VBG HCO3 28.2 H VBG Total CO2 29.7 H VBG O2 Sat (Calc) 97.7 H VBG Base Excess 1.9 VBG Potassium 3.8 Sodium 141.0 140 Chloride 106.0 105 Glucose 96 Lactate 0.8 FiO2 21.0 Potassium 3.7 Carbon Dioxide 28 Anion Gap 11 BUN 21 Creatinine 1.1 Est GFR ( Amer) > 60 Est GFR (Non-Af Amer) 53 POC Glucose (mg/dL) Random Glucose 99 Calcium 9.0 Phosphorus Magnesium 2.0 Total Bilirubin 0.6 AST 18 ALT 18 Alkaline Phosphatase 107 Lactate Dehydrogenase 523 Total Creatine Kinase 73 Troponin I < 0.01 Total Protein 7.5 Albumin 3.8 Globulin 3.7 Albumin/Globulin Ratio 1.0 L Amylase 66 Lipase 20 L Venous Blood Potassium 3.8 Urine Color Urine Appearance Urine pH Ur Specific [place] Urine Protein Urine Glucose (UA) Urine Ketones Urine Blood Urine Nitrate Urine Bilirubin Urine Urobilinogen Ur Leukocyte Esterase Urine RBC Urine WBC Ur Epithelial Cells Urine Bacteria Influenza Typ A,B (EIA) Negative for flu a/b Blood Type Antibody Screen BBK History Checked 04/19/18 04/19/18 04/19/18 13:00 14:14 18:06 WBC RBC Hgb Hct MCV MCH MCHC RDW Plt Count MPV Gran % Lymph % (Auto) Valley % (Auto) Eos % (Auto) Baso % (Auto) Gran # Lymph # (Auto) Valley # (Auto) Eos # (Auto) Baso # (Auto) PT INR APTT pO2 VBG pH VBG pCO2 VBG HCO3 VBG Total CO2 VBG O2 Sat (Calc) VBG Base Excess VBG Potassium Sodium Chloride Glucose Lactate FiO2 Potassium Carbon Dioxide Anion Gap BUN Creatinine Est GFR ( Amer) Est GFR (Non-Af Amer) POC Glucose (mg/dL) 75 82 Random Glucose Calcium Phosphorus Magnesium Total Bilirubin AST ALT Alkaline Phosphatase Lactate Dehydrogenase Total Creatine Kinase Troponin I Total Protein Albumin Globulin Albumin/Globulin Ratio Amylase Lipase Venous Blood Potassium Urine Color Urine Appearance Urine pH Ur Specific [place] Urine Protein Urine Glucose (UA) Urine Ketones Urine Blood Urine Nitrate Urine Bilirubin Urine Urobilinogen Ur Leukocyte Esterase Urine RBC Urine WBC Ur Epithelial Cells Urine Bacteria Influenza Typ A,B (EIA) Blood Type A NEGATIVE Antibody Screen Negative BBK History Checked Patient has bt 04/19/18 04/19/18 04/20/18 18:30 21:54 06:40 WBC 11.5 H D RBC 3.30 L Hgb 9.7 L D Hct 31.8 L MCV 96.4 MCH 29.4 MCHC 30.5 L RDW 15.7 H Plt Count 217 MPV 10.0 Gran % 75.3 H Lymph % (Auto) 16.4 L [place] % (Auto) 5.7 Eos % (Auto) 2.3 Baso % (Auto) 0.3 Gran # 8.66 H Lymph # (Auto) 1.9 Valley # (Auto) 0.7 H Eos # (Auto) 0.3 Baso # (Auto) 0.03 PT INR APTT pO2 VBG pH VBG pCO2 VBG HCO3 VBG Total CO2 VBG O2 Sat (Calc) VBG Base Excess VBG Potassium Sodium Chloride Glucose Lactate FiO2 Potassium Carbon Dioxide Anion Gap BUN Creatinine Est GFR ( Amer) Est GFR (Non-Af Amer) POC Glucose (mg/dL) 95 Random Glucose Calcium Phosphorus Magnesium Total Bilirubin AST ALT Alkaline Phosphatase Lactate Dehydrogenase Total Creatine Kinase Troponin I Total Protein Albumin Globulin Albumin/Globulin Ratio Amylase Lipase Venous Blood Potassium Urine Color Yellow Urine Appearance Sl cloudy Urine pH 6.0 Ur Specific [place] 1.015 Urine Protein Trace H Urine Glucose (UA) Negative Urine Ketones Negative Urine Blood Moderate H Urine Nitrate Negative Urine Bilirubin Negative Urine Urobilinogen 0.2 Ur Leukocyte Esterase Negative Urine RBC 10 - 15 Urine WBC 0 - 2 Ur Epithelial Cells 1 - 3 Urine Bacteria Occ Influenza Typ A,B (EIA) Blood Type Antibody Screen BBK History Checked 04/20/18 04/20/18 06:40 07:11 WBC RBC Hgb Hct MCV MCH MCHC RDW Plt Count MPV Gran % Lymph % (Auto) Valley % (Auto) Eos % (Auto) Baso % (Auto) Gran # Lymph # (Auto) [place] # (Auto) Eos # (Auto) Baso # (Auto) PT INR APTT pO2 VBG pH VBG pCO2 VBG HCO3 VBG Total CO2 VBG O2 Sat (Calc) VBG Base Excess VBG Potassium Sodium 139 Chloride 110 H Glucose Lactate FiO2 Potassium 3.8 Carbon Dioxide 27 Anion Gap 6 L BUN 15 Creatinine 0.9 Est GFR ( Amer) > 60 Est GFR (Non-Af Amer) > 60 POC Glucose (mg/dL) 68 Random Glucose 92 Calcium 8.0 L Phosphorus 3.7 Magnesium 2.0 Total Bilirubin 0.3 AST 17 ALT 14 Alkaline Phosphatase 92 Lactate Dehydrogenase Total Creatine Kinase Troponin I Total Protein 6.3 Albumin 3.1 Globulin 3.3 Albumin/Globulin Ratio 0.9 L Amylase Lipase Venous Blood Potassium Urine Color Urine Appearance Urine pH Ur Specific [place] Urine Protein Urine Glucose (UA) Urine Ketones Urine Blood Urine Nitrate Urine Bilirubin Urine Urobilinogen Ur Leukocyte Esterase Urine RBC Urine WBC Ur Epithelial Cells Urine Bacteria Influenza Typ A,B (EIA) Blood Type Antibody Screen BBK History Checked Assessment & Plan - Assessment and Plan (Free Text) Assessment: 52 yo WF with h/o gastric bypass, chronic Fe def anemia, HTN, CVA, bipolar+schizophrenia presenting with n/v/d. # Acute Nausea/Vomiting/Diarrhea: Suspect related to acute infectious trigger given recent onset after possible contaminated food. Suspect viral gastroenterits given constellation of symptoms and well as their already slow improvement over time. However, should rule out Cdiff and Stool Cx given possible food-borne etiology. No recent travel nor immunosuppresion to suggest O&P evaluation. # RLL PNA: Suspect related to Aspiration given multiple episodes of emesis. # Chronic Fe def Anemia: Intermittent Fe infusions via port with Dr. Malave. Plan: - F/u Cdiff and Stool Cx - Supportive care - Antibiotics per primary for PNA - Low Residue, Soft diet - MRE as outpatient Pt seen and examined with Dr. Sanchez; see attestation for further recs/changes. <Radhika Sanchez V - Last Filed: 04/20/18 21:34> Meds - Medications Medications: Current Medications Acetaminophen (Tylenol 325mg Tab) 650 mg PO Q6H PRN PRN Reason: Fever >100.4 F Last Admin: 04/20/18 06:33 Dose: 650 mg Albuterol/Ipratropium (Duoneb 3 Mg/0.5 Mg (3 Ml) Ud) 3 ml IH [id number] KEITH Last Admin: 04/20/18 20:29 Dose: 3 ml Apixaban (Eliquis) 5 mg PO BID KEITH; Protocol Last Admin: 04/20/18 17:20 Dose: 5 mg Aripiprazole (Abilify) 30 mg PO HS KEITH; Protocol Last Admin: 04/19/18 22:17 Dose: 30 mg Atorvastatin Calcium (Lipitor) 10 mg PO DIN KEITH Last Admin: 04/20/18 17:20 Dose: 10 mg Benzonatate (Tessalon Perles) 100 mg PO TID [facility] Last Admin: 04/20/18 17:20 Dose: 100 mg Cholecalciferol (Vitamin D) 1,000 intlu PO MON KEITH Clonazepam (Klonopin) 1 mg PO HS PRN; Protocol PRN Reason: Agitation Last Admin: 04/19/18 22:16 Dose: 1 mg Folic Acid (Folic Acid) 1 mg PO BID [facility] Last Admin: 04/20/18 18:37 Dose: 1 mg Dextrose/Sodium Chloride (Dextrose 5%/0.9% Ns 1000 Ml) 1,000 mls @ 100 mls/hr IV .Q10H [facility] Last Admin: 04/20/18 10:37 Dose: Not Given Azithromycin (Zithromax 500mg In Ns) 500 mg in 250 mls @ 167 mls/hr IVPB DAILY [facility]; Protocol Last Admin: 04/20/18 10:37 Dose: 167 mls/hr Meropenem (Merrem Iv 1 Gm Premix) 1 gm in 50 mls @ 100 mls/hr IVPB Q8 KEITH; Protocol Stop: 04/28/18 22:01 Last Admin: 04/20/18 13:47 Dose: 100 mls/hr Vancomycin HCl (Vancomycin 1gm) 1 gm in 250 mls @ 167 mls/hr IVPB Q12H [facility]; Protocol Stop: 04/28/18 19:16 Last Admin: 04/20/18 19:00 Dose: 167 mls/hr Levothyroxine Sodium (Synthroid) 125 mcg PO ACB [facility] Last Admin: 04/20/18 08:03 Dose: 125 mcg Metoprolol Tartrate (Lopressor) 25 mg PO BID [facility] Last Admin: 04/20/18 17:20 Dose: Not Given Ondansetron HCl (Zofran Odt) 4 mg PO Q8H PRN PRN Reason: Nausea/Vomiting Pantoprazole Sodium (Protonix Ec Tab) 40 mg PO 0600 [facility] Last Admin: 04/20/18 06:20 Dose: 40 mg Pregabalin (Lyrica) 50 mg PO DAILY [facility] Last Admin: 04/20/18 10:37 Dose: 50 mg Zolpidem Tartrate (Ambien) 10 mg PO HS PRN; Protocol PRN Reason: Insomnia Last Admin: 04/19/18 22:17 Dose: 10 mg Results - Vital Signs Recent Vital Signs: Last Vital Signs Temp 97.9 F 04/20/18 18:00 Pulse 78 04/20/18 18:00 Resp 20 04/20/18 18:00 BP 100/60 04/20/18 18:00 Pulse Ox 98 04/20/18 18:00 - Labs Result Diagrams: 04/20/18 06:40 04/20/18 06:40 Labs: Laboratory Results - last 24 hr 04/19/18 04/19/18 04/19/18 18:30 19:29 21:54 WBC RBC Hgb Hct MCV MCH MCHC RDW Plt Count MPV Gran % Lymph % (Auto) [place] % (Auto) Eos % (Auto) Baso % (Auto) Gran # Lymph # (Auto) [place] # (Auto) Eos # (Auto) Baso # (Auto) Sodium Potassium Chloride Carbon Dioxide Anion Gap BUN Creatinine Est GFR ( Amer) Est GFR (Non-Af Amer) POC Glucose (mg/dL) 95 Random Glucose Calcium Phosphorus Magnesium Total Bilirubin AST ALT Alkaline Phosphatase Total Protein Albumin Globulin Albumin/Globulin Ratio Procalcitonin 0.41 Urine Color Yellow Urine Appearance Sl cloudy Urine pH 6.0 Ur Specific [place] 1.015 Urine Protein Trace H Urine Glucose (UA) Negative Urine Ketones Negative Urine Blood Moderate H Urine Nitrate Negative Urine Bilirubin Negative Urine Urobilinogen 0.2 Ur Leukocyte Esterase Negative Urine RBC 10 - 15 Urine WBC 0 - 2 Ur Epithelial Cells 1 - 3 Urine Bacteria Occ Ur L.pneumophila Ag 04/20/18 04/20/18 04/20/18 06:40 06:40 07:00 WBC 11.5 H D RBC 3.30 L Hgb 9.7 L D Hct 31.8 L MCV 96.4 MCH 29.4 MCHC 30.5 L RDW 15.7 H Plt Count 217 MPV 10.0 Gran % 75.3 H Lymph % (Auto) 16.4 L [place] % (Auto) 5.7 Eos % (Auto) 2.3 Baso % (Auto) 0.3 Gran # 8.66 H Lymph # (Auto) 1.9 [place] # (Auto) 0.7 H Eos # (Auto) 0.3 Baso # (Auto) 0.03 Sodium 139 Potassium 3.8 Chloride 110 H Carbon Dioxide 27 Anion Gap 6 L BUN 15 Creatinine 0.9 Est GFR ( Amer) > 60 Est GFR (Non-Af Amer) > 60 POC Glucose (mg/dL) Random Glucose 92 Calcium 8.0 L Phosphorus 3.7 Magnesium 2.0 Total Bilirubin 0.3 AST 17 ALT 14 Alkaline Phosphatase 92 Total Protein 6.3 Albumin 3.1 Globulin 3.3 Albumin/Globulin Ratio 0.9 L Procalcitonin Urine Color Urine Appearance Urine pH Ur Specific [place] Urine Protein Urine Glucose (UA) Urine Ketones Urine Blood Urine Nitrate Urine Bilirubin Urine Urobilinogen Ur Leukocyte Esterase Urine RBC Urine WBC Ur Epithelial Cells Urine Bacteria Ur L.pneumophila Ag Negative 04/20/18 04/20/18 04/20/18 07:11 12:43 16:07 WBC RBC Hgb Hct MCV MCH MCHC RDW Plt Count MPV Gran % Lymph % (Auto) [place] % (Auto) Eos % (Auto) Baso % (Auto) Gran # Lymph # (Auto) [place] # (Auto) Eos # (Auto) Baso # (Auto) Sodium Potassium Chloride Carbon Dioxide Anion Gap BUN Creatinine Est GFR ( Amer) Est GFR (Non-Af Amer) POC Glucose (mg/dL) 68 75 88 Random Glucose Calcium Phosphorus Magnesium Total Bilirubin AST ALT Alkaline Phosphatase Total Protein Albumin Globulin Albumin/Globulin Ratio Procalcitonin Urine Color Urine Appearance Urine pH Ur Specific [place] Urine Protein Urine Glucose (UA) Urine Ketones Urine Blood Urine Nitrate Urine Bilirubin Urine Urobilinogen Ur Leukocyte Esterase Urine RBC Urine WBC Ur Epithelial Cells Urine Bacteria Ur L.pneumophila Ag Attending/Attestation - Attestation I have personally seen and examined this patient.: Yes I have fully participated in the care of the patient.: Yes I have reviewed all pertinent clinical information: Yes Notes (Text): This is an addendum to GI consult report dictated by the GI Fellow.The patient was seen and examined earlier. Medical records, lab studies, imagings were reviewed. Last 24 hours events reviewed. Agreed with the above treatment plan as outlined in GI Fellow 's notes with the addition of the following Acute onset of diarrhea or vomiting abdominal pain in this patient is more suggestive of gastroenteritis this time Patient however had multiple admissions in the past, history of anemia Status post EGD colonoscopy Plan due for outpatient MR enterography Discussed with the family who were at bedside at the request of the patient Slowly advance to soft diet 04/20/18 21:32
--- NOTE | 2018-04-20 09:48 | HP ---
date 04/19/18 CHIEF COMPLAINT: Abdominal pain. HISTORY OF PRESENT ILLNESS: Ms. Julieth Szymanski is a 52 years old female with past medical history of atrial fibrillation, severe hypothyroidism, asthma, gastric bypass in 1999, GERD, dyspepsia who came to the emergency room department complaining of abdominal pain associated with vomiting, loss of appetite and diarrhea since past 4 days. Patient states that her symptoms emerged after eating a bowl of clam chowder and has been progressively worsening since then. Patient now has reports of watery stool and is unable to keep any fluid down, prompting her to present to the emergency room department. The patient has been found to have shortness of breath, coughing since yesterday producing green phlegm, having back pain. No fever. No chill. No chest pain. No dizziness. No hematemesis. No hematochezia. PAST MEDICAL HISTORY: Atrial fibrillation, asthma, pneumonia, history of nephrolithiasis, anemia, back pain, falls, GERD, dyspepsia, anxiety, bipolar, depression, schizophrenia, history of gastric bypass surgery, respiratory assist device. FAMILY HISTORY: Father and mother, noncontributory. HABITS: Never smoked. No drug. No ethanol. ALLERGIES: PATIENT IS ALLERGIC WITH IODINATED CONTRAST, IODINE ALLERGY, MEPERIDINE. HOME MEDICATIONS: Lyrica, Protonix, vitamin D, Glucophage, Xyzal, Lopressor, Carafate, Percocet, Cymbalta, Klonopin. REVIEW OF SYSTEMS: Patient is seen and examined at bedside, looking comfortable. No nausea, vomiting or diarrhea at this moment. No vision changes. Still coughing with shortness of breath. No chest pain. Sometimes complaining about no appetite. No hematuria or hematochezia. No dysuria, hematuria, back pain or headache. No dizziness. No polyuria. anxiety or depression. PHYSICAL EXAMINATION: VITAL SIGNS: Temperature 99.3, pulse 103, respiratory rate 17, blood pressure 97/64 and pulse oximetry 100. HEENT: Head normocephalic and atraumatic. Eyes: PERRLA. Extraocular muscles intact. Conjunctivae clear. Nose patent. Mucous membrane moist. NECK: Supple. No carotid bruit or thyromegaly. CHEST: Bilaterally symmetrical. HEART: S1 and S2 positive. LUNGS: Clear to auscultation. ABDOMEN: Soft. Bowel sounds positive. No organomegaly. EXTREMITIES: No edema. No cyanosis. NEUROLOGIC: Patient is awake, alert, moving all 4 extremities. No focal deficits. LABORATORY DATA: White blood cell 7.0, hemoglobin 11.7, hematocrit 36.3 and platelets 243. Sodium 140, potassium 3.7, BUN 21, creatinine 1.1 and glucose 82. ASSESSMENT AND PLAN: Ms. Julieth Szymanski is a 52 years old lady with leukocytosis, anemia and hypoglycemia. Influenza type A and B is negative. History of hypertension, cerebrovascular accident, asthma, hypothyroidism, iron deficiency anemia, paroxysmal atrial fibrillation on Eliquis, bipolar, gastric bypass, osteoporosis, depression and schizophrenia, came with abdominal pain, nausea, vomiting and diarrhea stated that eating after some food, after that started coughing. Now, patient has leukocytosis and anemia. Chest x-ray is done. A CAT scan of abdomen and pelvis showed left nephrolithiasis, mildly distended gallbladder after gastric bypass and bibasilar interstitial infiltrates. There is a right lower lobe pneumonia. Chest x-ray PA and lateral pending. Started Zithromax, Merrem, vancomycin and DuoNeb. Blood and sputum culture, urine Legionella and procalcitonin pending, but this was sent. Hematology and Oncology is on that case. I appreciate their recommendations. Nausea, vomiting and diarrhea, Clostridium difficile toxin serology sent, Zofran given, I started on clear liquid diet with aspiration precautions. History of paroxysmal atrial fibrillation, the patient is on Eliquis, we will continue. Bipolar, patient is taking Abilify. History of anxiety, insomnia and hypothyroidism stable. Gastrointestinal and deep venous thrombosis prophylaxes. Consults were called with Dr. Bustamante, Infectious Disease; Dr. Sanchez, GI; Dr. Malave and Dr. Sears. Repeat labs. We will follow up. Janelle Grenee MD MTDD
[2018-04-20] MEDS ORDERED: cefTRIAXone 1 gm 1 GM/100 ML BAG IVPB SCH (10:00)
--- NOTE | 2018-04-20 10:24 | RAD ---
Date of service: 04/20/2018 HISTORY: PNA; R/O Pulm edema COMPARISON: April 19, 2018. Study performed 13:47 FINDINGS: LUNGS: Stable infiltrates. PLEURA: No significant pleural effusion identified, no pneumothorax apparent. CARDIOVASCULAR: No atherosclerotic calcification present No radiographic findings to suggest acute or significant cardiovascular disease. Venous access catheter in stable, satisfactory position. OSSEOUS STRUCTURES: No significant abnormalities. VISUALIZED UPPER ABDOMEN: Normal. OTHER FINDINGS: None. IMPRESSION: No significant interval change compared to the prior examination(s).
--- NOTE | 2018-04-20 10:35 | CARD ---
APPROVED REPORT Date of service: 04/19/2018 EKG Measurement Heart [id number] <Conclusion> Sinus tachycardia STTW changes. New T wave inversions 1, AVL
[2018-04-20] MEDS: Azithromycin 500MG/NS 250ml 500 MG/250 ML BAG IVPB SCH (10:37)
[2018-04-20] MEDS: Dextrose 5%/0.9% NS 1,000 ML IV SCH (10:37)
--- NOTE | 2018-04-20 16:42 | CP.PCM.PN ---
Subjective - Date & Time of Evaluation Date of Evaluation: 04/20/18 Time of Evaluation: 16:37 - Subjective Subjective: Hematology/Oncology Progress Note (Dr. Malave's Service) Patient seen and assessed at bedside. No acute events noted overnight. Patient denies any complaints at this time including fevers, chills, headache, chest pain, SOB, abdominal pain, N/V/D/C, changes in urine output, skin changes or any numbness/tingling of any extremity. Objective - Vital Signs/Intake and Output Vital Signs (last 24 hours): Temp Pulse Resp BP Pulse Ox 97.6 F 82 19 112/75 100 04/20/18 12:00 04/20/18 14:00 04/20/18 12:00 04/20/18 12:00 04/20/18 05:58 Intake and Output: 04/20/18 04/20/18 06:59 18:59 Intake Total 1440 Output Total 600 Balance 840 - Medications Medications: Current Medications Acetaminophen (Tylenol 325mg Tab) 650 mg PO Q6H PRN PRN Reason: Fever >100.4 F Last Admin: 04/20/18 06:33 Dose: 650 mg Albuterol/Ipratropium (Duoneb 3 Mg/0.5 Mg (3 Ml) Ud) 3 ml IH [id number] KEITH Last Admin: 04/20/18 15:46 Dose: 3 ml Apixaban (Eliquis) 5 mg PO BID KEITH; Protocol Last Admin: 04/20/18 10:37 Dose: 5 mg Aripiprazole (Abilify) 30 mg PO HS KEITH; Protocol Last Admin: 04/19/18 22:17 Dose: 30 mg Atorvastatin Calcium (Lipitor) 10 mg PO DIN KEITH Benzonatate (Tessalon Perles) 100 mg PO TID KEITH Last Admin: 04/20/18 13:47 Dose: 100 mg Cholecalciferol (Vitamin D) 1,000 intlu PO MON [facility] Clonazepam (Klonopin) 1 mg PO HS PRN; Protocol PRN Reason: Agitation Last Admin: 04/19/18 22:16 Dose: 1 mg Folic Acid (Folic Acid) 1 mg PO BID KE[facility] Last Admin: 04/20/18 10:37 Dose: 1 mg Dextrose/Sodium Chloride (Dextrose 5%/0.9% Ns 1000 Ml) 1,000 mls @ 100 mls/hr IV .Q10H [facility] Last Admin: 04/20/18 10:37 Dose: Not Given Azithromycin (Zithromax 500mg In Ns) 500 mg in 250 mls @ 167 mls/hr IVPB DAILY [facility]; Protocol Last Admin: 04/20/18 10:37 Dose: 167 mls/hr Meropenem (Merrem Iv 1 Gm Premix) 1 gm in 50 mls @ 100 mls/hr IVPB Q8 [facility]; Protocol Stop: 04/28/18 22:01 Last Admin: 04/20/18 13:47 Dose: 100 mls/hr Vancomycin HCl (Vancomycin 1gm) 1 gm in 250 mls @ 167 mls/hr IVPB Q12H [facility]; Protocol Stop: 04/28/18 19:16 Last Admin: 04/20/18 06:19 Dose: 167 mls/hr Levothyroxine Sodium (Synthroid) 125 mcg PO ACB [facility] Last Admin: 04/20/18 08:03 Dose: 125 mcg Metoprolol Tartrate (Lopressor) 25 mg PO BID [facility] Last Admin: 04/20/18 10:37 Dose: 25 mg Ondansetron HCl (Zofran Odt) 4 mg PO Q8H PRN PRN Reason: Nausea/Vomiting Pantoprazole Sodium (Protonix Ec Tab) 40 mg PO 0600 [facility] Last Admin: 04/20/18 06:20 Dose: 40 mg Pregabalin (Lyrica) 50 mg PO DAILY [facility] Last Admin: 04/20/18 10:37 Dose: 50 mg Zolpidem Tartrate (Ambien) 10 mg PO HS PRN; Protocol PRN Reason: Insomnia Last Admin: 04/19/18 22:17 Dose: 10 mg - Labs Labs: 04/20/18 06:40 04/20/18 06:40 PT 18.3 SECONDS (9.4-12.5) H 04/19/18 12:45 INR 1.58 04/19/18 12:45 APTT 33.2 Seconds (25.1-36.5) 04/19/18 12:45 - Additional Findings Additional findings: - Constitutional Appears: Non-toxic, No Acute Distress - Head Exam Head Exam: ATRAUMATIC, NORMOCEPHALIC - Eye Exam Eye Exam: EOMI, Normal appearance - ENT Exam ENT Exam: Mucous Membranes Dry - Neck Exam Neck exam: Positive for: Full Rom. Negative for: Lymphadenopathy, Tenderness - Respiratory Exam Respiratory Exam: Decreased Breath Sounds (RLL, interval improvement noted), Rhonchi (RLL, interval improvement noted), NORMAL BREATHING PATTERN. absent: Accessory Muscle Use, Chest Wall Tenderness, Clear to Auscultation Bilateral, Prolonged Expiratory Phase, Rales, Wheezes, Stridor - Cardiovascular Exam Cardiovascular Exam: RRR, +S2, +S4. absent: Bradycardia, Tachycardia - GI/Abdominal Exam GI & Abdominal Exam: Normal Bowel Sounds, Soft, Tenderness (LLQ, interval improvement noted). absent: Distended, Firm, Guarding, Rebound, Rigid - Extremities Exam Extremities exam: Positive for: normal capillary refill, pedal edema (Trace non- pitting edema bilaterally extending to ankles). Negative for: calf tenderness, tenderness - Neurological Exam Neurological exam: Alert, Oriented x3 - Psychiatric Exam Psychiatric exam: Normal Affect, Normal Mood - Skin Skin Exam: Dry, Intact, Warm Assessment and Plan - Assessment and Plan (Free Text) Assessment: 52 year old female with a past medical history significant for HTN, CVA, asthma, hypothyroidism, iron deficiency anemia, paroxysmal atrial fibrillation on Eliquis, bipolar, gastric bypass, osteoporosis, depression, and schizophrenia who presented from Dr. Malave's office with four days of diffuse mild abdominal pain, nausea, vomiting and diarrhea that started after eating "sour" clam chowder. Patient was found to have a leukocytosis of 17.0 on CBC and a right low er lobe pneumonia on Chest X-ray in the ED. A CT abdomen/pelvis showed left nephrolithiasis, mildly distended GB, s/p gastric bypass and bibasilar interstitial infiltrates. Plan: 1. RLL Pneumonia -Chest X-Ray (portable) showed RLL pneumonia -Chest X-Ray PA/Lateral showed no interval changes -Blood cultures, legionella, procalcitonin and influenza negative -Sputum cultures pending -Continue Zithromax, Merrem and Vancomycin -Continue Duonebs Q4H -Hematology/Oncology, ID and Pulmonology consulted, all recommendations appreciated 2. Nausea, Vomiting and Diarrhea -CT Abdomen/Pelvis with PO contrast findings noted -C.Diff serology and stool cultures pending -Continue D5/NS at 100mls/hr -Zofran 4mg ODT PO Q8 PRN -Advanced to Heart Healthy Diet -Aspiration precautions -GI consulted, all recommendations appreciated 3. History of Paroxysmal Atrial Fibrillation -Continue home Metoprolol -Continue home Eliquis 4. History of Bipolar Disorder -Continue home Abilify 5. History of SHERRY -Stable H/H on CBC -Will continue to monitor with daily CBC's 6. History of Anxiety -Continue home Klonopin 7. History of Insomnia -Continue home Ambien 8. History of Hypothyroidism -Continue home Synthroid GI Prophylaxis: Protonix DVT Prophylaxis: Eliquis Patient seen and case discussed with attending, Dr. Boateng. Carlo Toth PGY2
--- NOTE | 2018-04-20 19:06 | CON ---
DATE: 04/20/2018 LOCATION: Patient seen earlier today in 277, bed 2. CHIEF COMPLAINT: Abdominal pain. HISTORY OF PRESENT ILLNESS: This is a 52-year-old female with obesity, BMI of 37 with history of MRSA bacteremia, history of left healthcare-associated pneumonia, rheumatoid arthritis, hypothyroidism, schizoaffective disorder, bipolar, TIA, CVA and obstructive sleep apnea, atrial fibrillation, who is admitted with diagnosis of pneumonia and abdominal pain and the patient has been having had low-grade fevers. REVIEW OF SYSTEMS: Reveals low grade fevers, abdominal pain associated with nausea. No chest pain now. There is no dysuria or frequency. No headaches or blurred vision or neck pain. Review of systems reveals a 12-point review of systems is performed. PAST MEDICAL HISTORY: Significant for obesity with BMI of 37, history of MRSA bacteremia, history of left-sided healthcare-associated pneumonia in a patient with rheumatoid arthritis, hypothyroidism, schizoaffective disorder, bipolar, transient ischemic attack, cerebrovascular accident, obstructive sleep apnea, atrial fibrillation. PAST SURGICAL HISTORY: Significant for gastric bypass. The patient had a Port-A-Cath infection, which was removed and now has another Port-A-Cath. ALLERGIES: INCLUDE IODINATED CONTRAST, ORAL AND IV DYE . MEDICATIONS AT HOME: Also reviewed and include oxycodone, Ambien, Carafate, Lyrica. PHYSICAL EXAMINATION: VITAL SIGNS: The patient's temperature is 98, blood pressure is 95/60, respiratory rate of 18, pulse rate of 69, it was up to 103. HEENT: Unremarkable. NECK: Supple. LUNGS: Have decreased breath sounds. HEART: Normal S1 and S2. ABDOMINAL: Soft, nontender. LABORATORY EXAMINATION: Reveals the patient's white count of 17,000, hemoglobin of 11, platelets of 243. BUN of 21, creatinine of 1.1. Urinalysis is noted. Serology is noted. Microbiology is pending. Review of microbiology in the past revealed blood cultures have been negative. She did have yeast in the urine and chronic bacteria in the urine. The patient had a CAT scan of the abdomen, which showed bilateral interstitial infiltrates with left nephrolithiasis and a chest x-ray, which showed a right lower lobe. ASSESSMENT AND PLAN: A 52-year-old female with obesity, body mass index of 37, history of methicillin-resistant Staphylococcus aureus bacteremia, history of left healthcare-associated pneumonia, rheumatoid arthritis, hypothyroidism, schizoaffective disease, bipolar, transient ischemic attack, cerebrovascular accident, obstructive sleep apnea, atrial fibrillation, now presenting with tachycardia, leukocytosis and infiltrate. Sepsis with community-acquired pneumonia in a patient who has a Port-A-Cath, which must also rule out bacteremia. We will treat the patient with vancomycin, meropenem, azithromycin pending the procalcitonin, urine for Legionella antigen, blood cultures, methicillin-resistant Staphylococcus aureus screen, urine cultures and sputum cultures, and we will make adjustments based on response and initial workup results. Alexander Bustamante MD
--- NOTE | 2018-04-20 22:38 | PN ---
DATE: 04/20/2018 SUBJECTIVE: The patient was seen and examined on the bedside on 04/20/2018, looking comfortable. Pain is better. Cough is better. Shortness of breath is better. Do not look like in acute distress. Night was comfortable. No fever. No chills. No chest pain. No shortness of breath. No nausea, vomiting or diarrhea. No change in urine output. No skin changes. PHYSICAL EXAMINATION: VITAL SIGNS: Temperature 97.6, pulse 82, respiratory rate 18, blood pressure 112/75, pulse oximetry 75. HEENT: Head normocephalic, atraumatic. Eyes PERRLA. Extraocular muscles intact. Conjunctivae clear. Nose patent. Mucous membrane moist. NECK: Supple. No carotid bruit. No JVD or thyromegaly. CHEST: Bilaterally symmetrical. HEART: S1 and S2 positive. LUNGS: Clear to auscultation. ABDOMEN: Soft. Bowel sounds positive. No organomegaly. EXTREMITIES: No edema. No cyanosis. NEUROLOGICAL: The patient is awake and alert. Moving all 4 extremities. No focal deficits. MEDICATIONS: Tylenol, Duoneb, Eliquis, Abilify, Tessalon, Klonopin, folic acid, azithromycin, meropenem, vancomycin, Zofran, Ambien. LABORATORY DATA: White blood cells 11.5, hemoglobin 9.7, hematocrit 31.8, platelets 217. Sodium 139, potassium 3.8, BUN noted , creatinine 0.9, glucose 92. ASSESSMENT AND PLAN: Ms. Julieth Szymanski, 52-year-old female with leukocytosis, anemia, hyperchloremia with past medical history of hypertension, cerebrovascular accident, asthma, hypothyroidism, iron-deficiency anemia, paroxysmal atrial fibrillation, on Eliquis, bipolar, gastric bypass, osteoporosis, depression, schizophrenia, has right lower lobe pneumonia. Getting antibiotics, azithromycin, Merrem and vancomycin per Infectious Disease. Nausea, vomiting and diarrhea are better. Continue normal saline, Zofran. Advance heart-healthy diet. Aspiration precautions. History of paroxysmal atrial fibrillation, getting Eliquis. History of bipolar, is on Abilify. History of anxiety, continue Klonopin. Insomnia, continue home Ambien. Hypothyroidism, continue Synthroid. Gastrointestinal, deep venous thrombosis prophylaxis. Repeat labs. We will follow up. Janelle Greene MD [facility] # [id number] CAROL
[2018-04-21] MEDS: Albuterol-Ipratrop 3 mg / 0.5 (3 ml) UD IH SCH ×6 (00:12→20:13)
--- NOTE | 2018-04-21 01:06 | CON ---
DATE: 04/20/2018 REFERRING PHYSICIAN: . REASON FOR CONSULT: Chronic obstructive lung disease, pneumonia. HISTORY OF PRESENT ILLNESS: This is a 52-year-old female, well known to me from previous admission and office with multiple medical issues, noncompliant with the followup; has a history of chronic obstructive lung disease, atrial fibrillation, hypothyroid, history of gastric bypass surgery in the remote past, history of GERD, history of nephrolithiasis, was seen at Nephrology office; has abdominal pain, cough, shortness of breath; sent to ER and admitted. She had a CT of the abdomen done, which shows bilateral interstitial lung infiltrates. She has been having some rhinitis, cough and shortness of breath. No fever. No chills. No hematuria or diarrhea. No leg swelling. PAST MEDICAL HISTORY: Chronic obstructive lung disease, atrial fibrillation, history of pneumonia, nephrolithiasis, GERD, anxiety disorder, has schizophrenia/depression, gastric bypass surgery in the remote past. ALLERGIES: IODINE AND MEPERIDINE. SOCIAL HISTORY Nonsmoker, nondrinker. FAMILY HISTORY: No significant cardiopulmonary disease reported. MEDICATIONS: She is on Abilify 30 mg h.s., Ambien 10 mg h.s. p.r.n., getting IV fluid D5 normal saline 100 mL per hour, DuoNeb every 4 hours, Eliquis 5 mg twice a day, folic acid 1 mg daily, Klonopin 1 mg h.s. p.r.n., Lipitor 10 mg daily, Lopressor 25 mg twice a day, Lyrica 50 mg daily, meropenem 1 g IV every 8 hours, Protonix 40 mg daily, Synthroid 125 mcg daily, Tylenol on a p.r.n. basis, vancomycin 1 g IV every 12 hours, vitamin D 1000 mcg daily, Zithromax 500 mg daily, Zofran on a p.r.n. basis. REVIEW OF SYSTEMS: No headache. Mild rhinitis, cough, shortness of breath. No chest pain. Has some abdominal pain. No dysuria. No significant leg swelling. PHYSICAL EXAMINATION: GENERAL: Sitting up in a chair, in no acute distress. VITAL SIGNS: Temperature 98, heart rate 70, respiratory is 20, blood pressure 112/75, pulse ox 100% on nasal cannula. HEENT: Moist mucous membranes. Crowded airway. Short, thick neck. LUNGS: Have a few crackles and rhonchi. HEART: S1 and S2, irregular. ABDOMEN: Soft and nontender. No organomegaly. EXTREMITIES: There is no edema. NEUROLOGIC: Awake. Follows simple commands. LABORATORY DATA: Shows hemoglobin 9.7, hematocrit 31.8, WBC 11.5, platelets 217. INR 1.58, PTT is 33. VBG showed a pH of 7.36, pCO2 is 50, O2 is 89. Sodium 139, potassium 3.8, chloride 110, bicarbonate 27, BUN 15, creatinine 0.9, glucose 75, calcium is 8, phosphorus 3.7, magnesium 2, total bili 0.3, AST 17, ALT 14, alk phos is 92, albumin is 3.1. Microbiology, blood cultures have been negative. Chest x-ray shows bilateral some interstitial infiltrate. CT of the abdomen done and shows basilar interstitial infiltrate, history of gastric bypass surgery. IMPRESSION AND PLAN: Basilar pneumonia, chronic obstructive lung disease, hypertension, history of cerebrovascular accident, hypothyroid, iron-deficiency anemia, history of gastric bypass surgery, osteoporosis, depression/schizophrenia, came in with abdominal pain, could be related to pneumonia. I spoke to family at bedside. All the questions were answered. I also spoke to Hematology/Oncology services. High risk for sleep apnea syndrome, does not really use continuous positive airway pressure, understands the risk of sleep apnea. We will continue inhaled bronchodilator, antibiotics, gastric prophylaxis, deep venous thrombosis prophylaxis. Infectious Disease to follow up. Thank you and we will follow with you. Gisselle Sears MD
[2018-04-21] MEDS: Meropenem IV 1 gm in NS 1 GM/50 ML BAG IVPB SCH ×3 (05:24→21:54)
[2018-04-21] MEDS: Pantoprazole 40 mg EC Tab PO SCH (05:24)
[2018-04-21] MEDS: Vancomycin 1gm in NS 250ml 1 GM/250 ML BAG IVPB SCH (06:22)
[2018-04-21 07:05] LABS: BASO # 0.03 K/mm3 (0.0-2.0); BASO % 0.4 % (0.0-3.0); EOS # 0.3 (0.0-0.7); EOS % 3.2 % (1.5-5.0); GRAN # 5.52 (1.4-6.5); GRAN % 69.5 % (50.0-68.0); LYMPH # 1.6 (1.2-3.4); LYMPH % 20.3 % (22.0-35.0); MEAN CELL VOLUME 96.1 fl (80.0-105.0); MEAN CORPUSCULAR HEMOGLOBIN 29.4 pg (25.0-35.0); MEAN CORPUSCULAR HGB CONC 30.6 g/dl (31.0-37.0); MONO # 0.5 (0.1-0.6); MONO % 6.6 % (1.0-6.0); RBC 3.06 10^6/uL (3.5-6.1); RED CELL DISTRIBUTION WIDTH 15.2 % (11.5-14.5); WHITE BLOOD COUNT 7.9 10^3/uL (4.5-11.0)
[2018-04-21 07:38] LABS: ALBUMIN 2.9 g/dL (3.0-4.8); ALT/SGPT 16 U/L (7-56); AST/SGOT 16 U/L (14-36); BLOOD UREA NITROGEN 10 mg/dL (7-21); CALCIUM 8.2 mg/dL (8.4-10.5); GFR NON-AFRICAN AMERICAN > 60
[2018-04-21] MEDS: Levothyroxine 125 MCG TAB PO SCH (07:38)
[2018-04-21 07:53] LABS: B-TYPE NATRIURETIC PEPTIDE 2340 pg/mL (0-450)
[2018-04-21] MEDS: Azithromycin 500MG/NS 250ml 500 MG/250 ML BAG IVPB SCH (09:13)
--- NOTE | 2018-04-21 11:02 | CP.PCM.PN ---
<Rosario Maciel - Last Filed: 04/21/18 10:57> Subjective - Date & Time of Evaluation Date of Evaluation: 04/21/18 Time of Evaluation: 09:00 - Subjective Subjective: GI Fellow PGY5 Progress Note Pt seen and evaluated at bedside, pt reports feeling a lot better. Tolerating diet this am with no abdominal pain. No further diarrhea, regular BM last night. ROS: A 12pt ROS was negative except as above. Objective - Vital Signs/Intake and Output Vital Signs (last 24 hours): Temp Pulse Resp BP Pulse Ox 97.5 F L 72 20 116/72 97 04/21/18 06:00 04/21/18 09:15 04/21/18 06:00 04/21/18 09:15 04/21/18 06:00 Intake and Output: 04/21/18 04/21/18 06:59 18:59 Intake Total 1665 Balance 1665 - Medications Medications: Current Medications Acetaminophen (Tylenol 325mg Tab) 650 mg PO Q6H PRN PRN Reason: Fever >100.4 F Last Admin: 04/21/18 07:46 Dose: 650 mg Albuterol/Ipratropium (Duoneb 3 Mg/0.5 Mg (3 Ml) Ud) 3 ml IH [id number] KEITH Last Admin: 04/21/18 07:31 Dose: 3 ml Apixaban (Eliquis) 5 mg PO BID KEITH; Protocol Last Admin: 04/21/18 09:14 Dose: 5 mg Aripiprazole (Abilify) 30 mg PO HS KEITH; Protocol Last Admin: 04/20/18 21:28 Dose: 30 mg Atorvastatin Calcium (Lipitor) 10 mg PO DIN KEITH Last Admin: 04/20/18 17:20 Dose: 10 mg Benzonatate (Tessalon Perles) 100 mg PO TID KEITH Last Admin: 04/21/18 09:14 Dose: 100 mg Cholecalciferol (Vitamin D) 1,000 intlu PO MON [facility] Clonazepam (Klonopin) 1 mg PO HS PRN; Protocol PRN Reason: Agitation Last Admin: 04/20/18 21:32 Dose: 1 mg Folic Acid (Folic Acid) 1 mg PO BID [facility] Last Admin: 04/21/18 09:14 Dose: 1 mg Dextrose/Sodium Chloride (Dextrose 5%/0.9% Ns 1000 Ml) 1,000 mls @ 100 mls/hr IV .Q10H [facility] Last Admin: 04/20/18 10:37 Dose: Not Given Azithromycin (Zithromax 500mg In Ns) 500 mg in 250 mls @ 167 mls/hr IVPB DAILY [facility]; Protocol Last Admin: 04/21/18 09:13 Dose: 167 mls/hr Meropenem (Merrem Iv 1 Gm Premix) 1 gm in 50 mls @ 100 mls/hr IVPB Q8 KE[facility]; Protocol Stop: 04/28/18 22:01 Last Admin: 04/21/18 05:24 Dose: 100 mls/hr Vancomycin HCl (Vancomycin 1gm) 1 gm in 250 mls @ 167 mls/hr IVPB Q12H KEITH; Protocol Stop: 04/28/18 19:16 Last Admin: 04/21/18 06:22 Dose: 167 mls/hr Levothyroxine Sodium (Synthroid) 125 mcg PO ACB [facility] Last Admin: 04/21/18 07:38 Dose: 125 mcg Metoprolol Tartrate (Lopressor) 25 mg PO BID [facility] Last Admin: 04/21/18 09:15 Dose: Not Given Ondansetron HCl (Zofran Odt) 4 mg PO Q8H PRN PRN Reason: Nausea/Vomiting Pantoprazole Sodium (Protonix Ec Tab) 40 mg PO 0600 [facility] Last Admin: 04/21/18 05:24 Dose: 40 mg Pregabalin (Lyrica) 50 mg PO DAILY [facility] Last Admin: 04/21/18 09:14 Dose: 50 mg Zolpidem Tartrate (Ambien) 10 mg PO HS PRN; Protocol PRN Reason: Insomnia Last Admin: 04/20/18 21:28 Dose: 10 mg - Labs Labs: 04/21/18 06:30 04/21/18 06:30 PT 18.3 SECONDS (9.4-12.5) H 04/19/18 12:45 INR 1.58 04/19/18 12:45 APTT 33.2 Seconds (25.1-36.5) 04/19/18 12:45 - Constitutional Appears: Non-toxic, No Acute Distress - Head Exam Head Exam: ATRAUMATIC, NORMAL INSPECTION, NORMOCEPHALIC - Eye Exam Eye Exam: EOMI, Normal appearance, PERRL Pupil Exam: PERRL - ENT Exam ENT Exam: Mucous Membranes Moist - Respiratory Exam Respiratory Exam: NORMAL BREATHING PATTERN - Cardiovascular Exam Cardiovascular Exam: RRR, +S1, +S2 - GI/Abdominal Exam GI & Abdominal Exam: Soft, Tenderness, Normal Bowel Sounds - Neurological Exam Neurological Exam: Alert, Awake, Oriented x3 - Psychiatric Exam Psychiatric exam: Normal Affect, Normal Mood - Skin Skin Exam: Intact, Normal Color, Warm Assessment and Plan - Assessment and Plan (Free Text) Assessment: 52 yo WF with h/o gastric bypass, chronic Fe def anemia, HTN, CVA, bipolar+schizophrenia presenting with n/v/d. 1. Acute Nausea/Vomiting/Diarrhea 2. Gastroenteritis 3. RLL PNA 4. Chronic Fe def Anemia Plan: -Continue supportive care with pain control and anti-emetics - Abx per primary team - Clinically improving - Tolerating soft diet - Stool studies pending - MRE as outpatient - Pt okay for discharge home per GI perspective <Radhika Sanchez V - Last Filed: 04/22/18 18:18> Objective - Vital Signs/Intake and Output Vital Signs (last 24 hours): Temp Pulse Resp BP Pulse Ox 98.2 F 79 19 110/68 95 04/21/18 17:03 04/21/18 17:03 04/21/18 17:03 04/21/18 17:03 04/21/18 17:03 Intake and Output: 04/21/18 04/22/18 18:59 06:59 Intake Total 1400 Output Total 500 Balance 900 - Medications Medications: Current Medications Acetaminophen (Tylenol 325mg Tab) 650 mg PO Q6H PRN PRN Reason: Fever >100.4 F Last Admin: 04/21/18 07:46 Dose: 650 mg Acetaminophen/Butalbital/Caffeine (Fioricet) 1 tab PO Q8H PRN PRN Reason: Headache Last Admin: 04/21/18 21:53 Dose: 1 tab Albuterol/Ipratropium (Duoneb 3 Mg/0.5 Mg (3 Ml) Ud) 3 ml IH [id number] KEITH Last Admin: 04/22/18 00:00 Dose: Not Given Apixaban (Eliquis) 5 mg PO BID KE[facility]; Protocol Last Admin: 04/21/18 17:06 Dose: 5 mg Aripiprazole (Abilify) 30 mg PO HS KEITH; Protocol Last Admin: 04/21/18 21:52 Dose: 30 mg Atorvastatin Calcium (Lipitor) 10 mg PO DIN [facility] Last Admin: 04/21/18 17:06 Dose: 10 mg Azithromycin (Zithromax) 500 mg PO DAILY [facility]; Protocol Stop: 04/27/18 10:01 Benzonatate (Tessalon Perles) 100 mg PO TID [facility] Last Admin: 04/21/18 17:06 Dose: 100 mg Cholecalciferol (Vitamin D) 1,000 intlu PO MON [facility] Clonazepam (Klonopin) 1 mg PO HS PRN; Protocol PRN Reason: Agitation Last Admin: 04/21/18 22:46 Dose: 1 mg Folic Acid (Folic Acid) 1 mg PO BID [facility] Last Admin: 04/21/18 17:06 Dose: 1 mg Meropenem (Merrem Iv 1 Gm Premix) 1 gm in 50 mls @ 100 mls/hr IVPB Q8 [facility]; Protocol Stop: 04/28/18 22:01 Last Admin: 04/21/18 21:54 Dose: 100 mls/hr Dextrose/Sodium Chloride (Dextrose 5%/0.9% Ns 1000 Ml) 1,000 mls @ 50 mls/hr IV .Q20H [facility] Last Admin: 04/22/18 01:35 Dose: 50 mls/hr Levothyroxine Sodium (Synthroid) 125 mcg PO ACB [facility] Last Admin: 04/21/18 07:38 Dose: 125 mcg Metoprolol Tartrate (Lopressor) 25 mg PO BID [facility] Last Admin: 04/21/18 17:15 Dose: Not Given Ondansetron HCl (Zofran Odt) 4 mg PO Q8H PRN PRN Reason: Nausea/Vomiting Pantoprazole Sodium (Protonix Ec Tab) 40 mg PO 0600 [facility] Last Admin: 04/21/18 05:24 Dose: 40 mg Pregabalin (Lyrica) 50 mg PO DAILY [facility] Last Admin: 04/21/18 09:14 Dose: 50 mg Zolpidem Tartrate (Ambien) 10 mg PO HS PRN; Protocol PRN Reason: Insomnia Last Admin: 04/21/18 21:53 Dose: 10 mg - Labs Labs: 04/21/18 06:30 04/21/18 06:30 PT 18.3 SECONDS (9.4-12.5) H 04/19/18 12:45 INR 1.58 04/19/18 12:45 APTT 33.2 Seconds (25.1-36.5) 04/19/18 12:45 Attending/Attestation - Attestation I have personally seen and examined this patient.: Yes I have fully participated in the care of the patient.: Yes I have reviewed all pertinent clinical information, including history, physical exam and plan: Yes Notes (Text): This is an addendum to GI progress report dictated by the GI Fellow.The patient was seen and examined earlier. Medical records, lab studies, imagings were reviewed. Last 24 hours events reviewed. Agreed with the above treatment plan as outlined in GI Fellow 's notes with the addition of the following Discussed with Dr Osorio Boateng Mild drop in blood count probably dilutional No melena or bright red blood per rectum On examination abdomen soft nontender Follow-up hemoglobin Continue antibiotics for pneumonia MRE as an outpatient 04/22/18 01:47 04/22/18 18:15
[2018-04-21] MEDS ORDERED: Apap-Butalbital-Caffeine 325-50-40mg Tab PO PRN ×2 (12:34→13:58)
--- NOTE | 2018-04-21 13:17 | PN ---
DATE: 04/21/2018 SUBJECTIVE: The patient is in bed, in no acute distress, nontoxic. PHYSICAL EXAMINATION: VITAL SIGNS: Temperature is 97, blood pressure is 116/70, respiratory rate of 20, heart rate of 78. HEENT: Unremarkable. NECK: Supple. LUNGS: Have decreased breath sounds. HEART: Normal S1, S2. ABDOMINAL: Soft, nontender. LABORATORY DATA: Reveals the patient's white count is down now to 7.9, it was 17,000. Chemistries are noted. BNP is elevated. The patient's procalcitonin is 0.41. Urinalysis is 0-2 wbc's. Urine for Legionella antigen is negative. Influenza is negative. Microbiology reveals the blood cultures are no growth. Chest x-ray is stable infiltrates. Dr. Greene's note is reviewed. ASSESSMENT AND PLAN: A 52-year-old female with obesity, BMI of 37, history of methicillin-resistant Staphylococcus aureus bacteremia, history of left healthcare-associated pneumonia, history of rheumatoid arthritis, hypothyroidism, schizoaffective disorder, bipolar, transient ischemic attack, cerebrovascular accident, obstructive sleep apnea, atrial fibrillation, who is admitted with sepsis and community-acquired pneumonia who does have a Port-A-Cath; however, the blood cultures are reported no growth at 24 hours. We will check on the final blood culture results, methicillin-resistant Staphylococcus aureus screen, urine cultures and sputum cultures. The patient is currently on meropenem, azithromycin, vancomycin. Since the blood cultures are reported to be negative at this time we will discontinue the vancomycin. The patient's EKG does reveal a QTc of 455. We will change the azithromycin to p.o. We will maybe able to switch the antibiotics to p.o. in the next 24 hours since her white count is resolved and symptoms have greatly improved and complete with p.o. antibiotics pending final panculture results. note is reviewed. Dr. Carlo Toth's note is reviewed. The patient did have a CT scan of the abdomen and pelvis which showed left nephrolithiasis; however, picked up interstitial infiltrates. Mildly distended gallbladder. The LFTs are not elevated. Bilirubin was not elevated. Alkaline phosphatase is not elevated. We will follow with you. We will be able to switch to p.o. antibiotics within the next 24 hours if all cultures remain negative. Alexander Bustamante MD [facility] # [id number]
[2018-04-21 13:34] LABS: IRON 56 ug/dL (45-180)
[2018-04-21 13:43] LABS: % IRON SATURATION 36 % (20-55); TOTAL IRON BINDING CAPACITY 153 ug/dL (265-497)
--- NOTE | 2018-04-21 17:08 | PN ---
DATE: 04/21/2018 This is Julieth [facility]'s hospital visit on the medical floor. For Dr. Malave. SUBJECTIVE: The patient is a 52-year-old female seen sitting up in bed reporting that she has headache today, admitted by the emergency room for abdominal pain associated with vomiting, loss of appetite and severe diarrhea. She reports that she had a bowl of bad clam chowder prior to admission with this causing her untoward effects and now had gotten to the point where she was unable to keep food down. At present, she feels better with her only complaint that of a headache for which Tylenol did not help. We will consider Fioricet for this. PHYSICAL EXAMINATION: VITAL SIGNS: Temperature 97.5, pulse 72, respirations 20, blood pressure 116/72, pulse ox 97%. HEENT: Unremarkable. Tongue is moist. NECK: Supple. HEART: Regular rate. LUNGS: Faint crackles on the right. Left is clear. ABDOMEN: Obese, soft, nontender. EXTREMITIES: I think +1 edema. NEUROLOGIC: Awake, alert and oriented. LABORATORY DATA: Patient's labs were done. White blood cell count of 7.9, down from 17 on admission 2 days prior. Hemoglobin 9, hematocrit 29.4, platelet count of 210,000 with a chem metabolic panel showing chloride of 110, calcium of 8.2, B-type natriuretic peptide of 2340, otherwise normal chem metabolic panel. Her iron percent saturation was asked to be added today, it was 36%. Urinalysis 2 days prior showed moderate amount of blood. Patient had a followup chest x-ray done yesterday, it was read as no significant interval change compared to her chest x-ray from 2 days prior which showed right lower lobe pneumonia. Patient also had a CT scan of her abdomen and pelvis done on admission which showed bibasilar infiltrates, mildly distended gallbladder status post gastric bypass surgery, left nephrolithiasis. ASSESSMENT: For this patient is that of gastroenteritis with nausea and vomiting, right lower lobe pneumonia, anemia, headache, history of schizophrenia, history of bypass surgery, history of atrial fibrillation, hypothyroidism, questionable insulinoma, benign neoplasm of the pituitary gland, history of iron deficiency secondary to gastric bypass, orthostatic hypotension, anemia with transfusions, fibromyositis, sleep apnea, history of syncopal episodes, history of loop recorder insertion, PLAN: Plan for this patient after conversation with Dr. Malave is to continue with present medical regimen. We will monitor her labs with her anemic indices with consideration for transfusions as her iron saturations are acceptable at present. We will cut back her IV fluids from 100 to 50 mL an hour with her medication to continue as per Dr. Greene with antibiotics to be continued as per Dr. Bustamante and Dr. Sears. Prognosis for this patient is guarded. We will give Fioricet to see if this will help her headache. This is a complex patient with a comprehensive medically necessary and appropriate visit carried out in excess of 30 minutes with patient's questions answered to her satisfaction. Ronal Kahn MD
--- NOTE | 2018-04-21 18:11 | PN ---
DATE: 04/21/2018 PULMONARY PROGRESS NOTE REFERRING PHYSICIAN: Janelle Greene MD. SUBJECTIVE: She is lying in the bed, sleepy, arousable. Night was unremarkable. Does not want to use CPAP/BiPAP. No nausea, vomiting, diarrhea, leg pain, or leg swelling. PHYSICAL EXAMINATION: GENERAL: In no acute distress. VITAL SIGNS: Temperature is 98, heart rate is 79, respiratory rate is 20, blood pressure 110/68, pulse ox 95% on nasal cannula. HEENT: Moist mucous membrane. Crowded airway. Mallampati score is 4. Short thick neck. LUNGS: Have a few scattered rhonchi and crackles at the base. HEART: S1 and S2. ABDOMEN: Soft, nontender. No organomegaly. EXTREMITIES: No edema. NEUROLOGIC: Sleepy, arousable. Follows simple command. MEDICATIONS: She is on Abilify 30 mg at bedtime, Ambien 10 mg at bedtime p.r.n. She is on IV fluid D5 normal saline at 50 mL per hour, DuoNeb every 4 hours [id number], Eliquis 5 mg twice a day, Fioricet 1 tablet every 8 hours p.r.n., folic acid 1 mg twice a day, Klonopin 1 mg at bedtime p.r.n., Lipitor 10 mg daily, metoprolol tartrate 25 mg twice a day, Lyrica 50 mg daily, meropenem 1 g IV every 8 hours, Protonix 40 mg daily, Synthroid 125 mcg before breakfast, Tessalon Perles 100 mg three times a day, Tylenol p.r.n., vitamin D 1000 International Units daily, Zithromax 500 mg daily, and Zofran p.r.n. basis. LABORATORY DATA: Shows hemoglobin 9, hematocrit 29.4, WBC 7.9, platelet count is 210. Sodium 142, potassium 3.6, chloride 110, bicarbonate 27, BUN 10, creatinine 0.8, glucose 83, calcium 8.2, phosphorus 3.5, magnesium 2. Iron is 56, transferrin is 100, ferritin is 752. AST 16, ALT 16, alk phos is 76. ProBNP 2340. Microbiology: Blood culture, there is no growth. IMPRESSION AND PLAN: Basilar infiltrate, chronic obstructive lung disease, hypertension, cerebrovascular accident, hypothyroid, iron-deficiency anemia, ferritin is high though, gastric bypass surgery in the remote past, osteoporosis, depression, schizophrenia. Pulmonary point of view, doing okay. Keep head at 45 degrees. Sleep apnea precaution. The patient understands risk-benefit ratio, refusing to use CPAP. Avoid sedative if possible. Gastric prophylaxis, DVT prophylaxis. Has hypothyroid, continue Synthroid. Continue anticoagulation, physical therapy. Thank you and I will follow with you. Gisselle Sears MD
[2018-04-22] MEDS: Dextrose 5%/0.9% NS 1,000 ML IV SCH (01:35)
[2018-04-22] MEDS ORDERED: Apap-Butalbital-Caffeine 325-50-40mg Tab PO STA (03:47)
[2018-04-22] MEDS: Albuterol-Ipratrop 3 mg / 0.5 (3 ml) UD IH SCH ×6 (04:15→20:55)
[2018-04-22] MEDS: Meropenem IV 1 gm in NS 1 GM/50 ML BAG IVPB SCH ×3 (05:29→22:05)
[2018-04-22] MEDS: Pantoprazole 40 mg EC Tab PO SCH (05:30)
--- NOTE | 2018-04-22 06:38 | PN ---
DATE: 04/21/2018 SUBJECTIVE: The patient was seen and examined at the bedside on 04/21/2018. Looking comfortable. Coughing but shortness of breath is better. Does not want to use CPAP/BiPAP. No fever. No chills. No headache. No dizziness. PHYSICAL EXAMINATION: VITAL SIGNS: Temperature 98, heart rate 70, respiratory rate 20, blood pressure 110/58, pulse oximetry 95% via nasal cannula. HEENT: Head normocephalic and atraumatic. Eyes, PERRLA. Extraocular muscles intact. Conjunctivae clear. Nose patent. Mucous membrane moist. NECK: Supple. No carotid bruit. No JVD, thyromegaly. CHEST: Bilaterally symmetrical. HEART: S1, S2 positive. LUNGS: Clear to auscultation. ABDOMEN: Soft. Bowel sounds positive. No organomegaly. EXTREMITIES: No edema. No cyanosis. NEUROLOGIC: Patient is awake and alert. Moving all four extremities. No focal deficits. MEDICATIONS: Abilify, Ambien, IV fluid, DuoNeb, Eliquis, Fioricet, metoprolol, Lyrica, meropenem, Synthroid. LABORATORY DATA: Hemoglobin 9, hematocrit 29.4, white blood cell 7.9, platelets 210, sodium 142, potassium 3.6, BUN 10, creatinine 0.8, glucose 83. ASSESSMENT AND PLAN: Ms. Julieth Szymanski is a 52-year-old female with bibasilar infiltrate, chronic obstructive lung disease, hypertension, cerebrovascular accident, hypothyroidism, iron deficiency anemia, gastrointestinal and deep venous thrombosis prophylaxis. Repeat labs. We will follow up. Janelle Greene MD
[2018-04-22 07:22] LABS: BASO # 0.04 K/mm3 (0.0-2.0); BASO % 0.6 % (0.0-3.0); EOS # 0.4 (0.0-0.7); EOS % 5.1 % (1.5-5.0); GRAN # 3.72 (1.4-6.5); HEMOGLOBIN 9.8 g/dL (12.0-16.0); LYMPH # 2.3 (1.2-3.4); LYMPH % 33.2 % (22.0-35.0); MEAN CELL VOLUME 95.1 fl (80.0-105.0); MEAN CORPUSCULAR HGB CONC 31.5 g/dl (31.0-37.0); MEAN PLATELET VOLUME 10.6 fl (7.0-11.0); MONO # 0.5 (0.1-0.6); MONO % 7.1 % (1.0-6.0); RBC 3.27 10^6/uL (3.5-6.1); WHITE BLOOD COUNT 6.9 10^3/uL (4.5-11.0)
[2018-04-22 08:06] LABS: ALBUMIN 3.2 g/dL (3.0-4.8); ALT/SGPT 18 U/L (7-56); AST/SGOT 15 U/L (14-36); BLOOD UREA NITROGEN 7 mg/dL (7-21); CALCIUM 8.8 mg/dL (8.4-10.5); GFR NON-AFRICAN AMERICAN > 60
[2018-04-22] MEDS: Levothyroxine 125 MCG TAB PO SCH (08:50)
[2018-04-22] MEDS ORDERED: Potassium Chloride 10 mEq ER Tab PO STA (11:41)
--- NOTE | 2018-04-22 12:44 | PN ---
DATE: 04/22/2018 SUBJECTIVE: The patient is in bed, in no acute distress, nontoxic. PHYSICAL EXAMINATION: VITAL SIGNS: On exam, temperature is 97, blood pressure is 125/60, respiratory rate of 20. HEENT: Examination of HEENT is unremarkable. NECK: Supple. LUNGS: Have decreased breath sounds. HEART: Normal S1 and S2. ABDOMEN: Soft. LABORATORY DATA: Laboratory examination reveals a white count of 6.9, hemoglobin of 9, platelets of 244. Chemistries reveals a BUN of 7, creatinine of 0.8. Urinalysis is noted. Serology is negative. Microbiology reveals the blood and urine cultures are negative. ASSESSMENT AND PLAN: A 52-year-old female with obesity with body mass index of 37, history of methicillin-resistant Staphylococcus aureus bacteremia, history of left healthcare-associated pneumonia, history of rheumatoid arthritis, hypothyroidism, schizoaffective disorder, bipolar, transient ischemic attack, cerebrovascular accident, obstructive sleep apnea, atrial fibrillation, who was admitted with sepsis, community-acquired pneumonia. Does have a Port-A-Cath. So far, the blood cultures are no growth at 48 hours and the urine culture is negative and urine Legionella is negative. Influenza is negative. The procalcitonin is reported to be negative. The white count is improved. Review of orders reveals the patient to be on azithromycin p.o. and meropenem. The patient did have a CAT scan of the abdomen and pelvis. Mildly distended gallbladder, gastric bypass surgery. Today is day #4. We will discontinue the meropenem within the next 24 hours and would complete 5-7 days of azithromycin p.o. We will check on the final cultures in the a.m. Alexander Bustamante MD
[2018-04-22] MEDS ORDERED: Dexamethasone 2 MG in Sodium Chloride 0.9% 50 ML IV ONE (13:50)
--- NOTE | 2018-04-22 15:50 | CON ---
DATE: 04/22/2018 NEUROLOGY CONSULTATION CHIEF COMPLAINT: Headache. HISTORY OF PRESENT ILLNESS: This is a 52-year-old woman, who is well known to me in the past, has underlying neuropathy, on Lyrica; she has AFib, on Eliquis; depression; schizophrenia; iron deficiency anemia; history of tension headaches in the past; COPD, who came into the hospital for shortness of breath and found to have some basilar infiltrates, on antibiotics; history of COPD; had worsening tension-type headaches and was refusing to use CPAP though it was necessary given her pulmonary issues of COPD. Currently she is on Fioricet round the clock for headaches which does help, but it has intermittent dull pressure type headaches without any auras. We will give her some Toradol and one dose of dexamethasone to reduce the headache. She is currently relaxed. PAST MEDICAL HISTORY: As above. SOCIAL HISTORY: No illicit drug use, smoking, or EtOH abuse. ALLERGIES: IODINATED CONTRAST. FAMILY HISTORY: Noncontributory. REVIEW OF SYSTEMS: Fourteen-point review of systems is negative except as per the HPI. LABORATORY DATA: Sodium is 142, potassium 3.5, chloride 110, carbon dioxide 25, BUN 7, creatinine 0.8. Random glucose of 73. PHYSICAL EXAMINATION VITAL SIGNS: Temperature 97.7, pulse rate 75, blood pressure 125/68, respiratory rate 20, oxygen saturation 98% on room air. GENERAL: The patient is sitting up in bed, in no acute distress. HEENT: Atraumatic, normocephalic. PERRLA. Extraocular muscles intact. NECK: Supple. No JVD, no adenopathy noted. LUNGS: Clear to auscultation. No adventitious sounds. HEART: S1, S2. Normal rate and rhythm. No murmurs, rubs, or gallops except for occasional rhonchi heard on auscultation. ABDOMEN: Soft, nontender, and nondistended. Bowel sounds are present. EXTREMITIES: No clubbing. No cyanosis. Peripheral pulses 2+ felt bilaterally. NEUROLOGIC: The patient is alert and oriented to person, place, month, and year. Speech is fluent without any errors. Cranial nerves II through XII intact. Motor: Moves all extremities equally. No pronator drift seen. Toes are downgoing bilaterally. Sensory: Decreased light touch and pinprick up to the calves bilaterally. Decreased vibration of the toes. DTRs are 2+ throughout at both knees and ankles. Coordination: Fyghmj-[id number] intact. No dysmetria noted. Gait is normal. IMPRESSION: Her headache is more of a tension-based headache superimposed on bibasilar infiltrate and COPD. We will recommend: 1. CPAP daily given her severe COPD and bibasilar infiltrate to help her oxygenation. Risks and benefits discussed. 2. Continue with Fioricet one tab q.4 hours for acute onset of headache and Lyrica for neuropathic relief. 3. We will give her one dose of dexamethasone of 2 mg for headache in addition to one dose of IV Toradol. At this time, she can follow up as an outpatient in regards to her headaches. Clinically stable. Continue current present medical management for bibasilar infiltrate. Thank you for this consultation. Tobias Hooks MD
--- NOTE | 2018-04-22 16:14 | CP.PCM.PN ---
<Amn Raheema - Last Filed: 04/22/18 16:11> Subjective - Date & Time of Evaluation Date of Evaluation: 04/22/18 Time of Evaluation: 09:00 - Subjective Subjective: GI Fellow PGY5 Progress Note Pt seen and evaluated at bedside, pt reporting no abdominal pain and no diarrhea. ROS: A 12pt ROS was negative except as above. Objective - Vital Signs/Intake and Output Vital Signs (last 24 hours): Temp Pulse Resp BP Pulse Ox 97.9 F 75 20 125/68 98 04/22/18 06:00 04/22/18 09:54 04/22/18 06:00 04/22/18 09:54 04/22/18 06:00 Intake and Output: 04/22/18 04/22/18 06:59 18:59 Intake Total 990 Balance 990 - Medications Medications: Current Medications Acetaminophen (Tylenol 325mg Tab) 650 mg PO Q6H PRN PRN Reason: Fever >100.4 F Last Admin: 04/21/18 07:46 Dose: 650 mg Acetaminophen/Butalbital/Caffeine (Fioricet) 1 tab PO Q8H PRN PRN Reason: Headache Last Admin: 04/21/18 21:53 Dose: 1 tab Albuterol/Ipratropium (Duoneb 3 Mg/0.5 Mg (3 Ml) Ud) 3 ml IH [id number] KEITH Last Admin: 04/22/18 11:23 Dose: 3 ml Apixaban (Eliquis) 5 mg PO BID KEITH; Protocol Last Admin: 04/22/18 09:54 Dose: 5 mg Aripiprazole (Abilify) 30 mg PO HS KEITH; Protocol Last Admin: 04/21/18 21:52 Dose: 30 mg Atorvastatin Calcium (Lipitor) 10 mg PO DIN KEITH Last Admin: 04/21/18 17:06 Dose: 10 mg Azithromycin (Zithromax) 500 mg PO DAILY KEITH; Protocol Stop: 04/27/18 10:01 Last Admin: 04/22/18 09:55 Dose: 500 mg Benzonatate (Tessalon Perles) 100 mg PO TID KEITH Last Admin: 04/22/18 14:40 Dose: 100 mg Cholecalciferol (Vitamin D) 1,000 intlu PO MON KEITH Clonazepam (Klonopin) 1 mg PO HS PRN; Protocol PRN Reason: Agitation Last Admin: 04/21/18 22:46 Dose: 1 mg Folic Acid (Folic Acid) 1 mg PO BID [facility] Last Admin: 04/22/18 09:56 Dose: 1 mg Meropenem (Merrem Iv 1 Gm Premix) 1 gm in 50 mls @ 100 mls/hr IVPB Q8 KEITH; Protocol Stop: 04/28/18 22:01 Last Admin: 04/22/18 14:40 Dose: 100 mls/hr Dextrose/Sodium Chloride (Dextrose 5%/0.9% Ns 1000 Ml) 1,000 mls @ 50 mls/hr IV .Q20H [facility] Last Admin: 04/22/18 01:35 Dose: 50 mls/hr Levothyroxine Sodium (Synthroid) 125 mcg PO ACB [facility] Last Admin: 04/22/18 08:50 Dose: 125 mcg Metoprolol Tartrate (Lopressor) 25 mg PO BID [facility] Last Admin: 04/22/18 09:54 Dose: 25 mg Ondansetron HCl (Zofran Odt) 4 mg PO Q8H PRN PRN Reason: Nausea/Vomiting Pantoprazole Sodium (Protonix Ec Tab) 40 mg PO 0600 [facility] Last Admin: 04/22/18 05:30 Dose: 40 mg Pregabalin (Lyrica) 50 mg PO DAILY [facility] Last Admin: 04/22/18 09:53 Dose: 50 mg Zolpidem Tartrate (Ambien) 10 mg PO HS PRN; Protocol PRN Reason: Insomnia Last Admin: 04/21/18 21:53 Dose: 10 mg - Labs Labs: 04/22/18 07:00 04/22/18 07:00 PT 18.3 SECONDS (9.4-12.5) H 04/19/18 12:45 INR 1.58 04/19/18 12:45 APTT 33.2 Seconds (25.1-36.5) 04/19/18 12:45 - Constitutional Appears: Non-toxic, No Acute Distress - Head Exam Head Exam: ATRAUMATIC, NORMAL INSPECTION, NORMOCEPHALIC - Eye Exam Eye Exam: EOMI, Normal appearance - ENT Exam ENT Exam: Mucous Membranes Moist - Neck Exam Neck Exam: Full ROM, Normal Inspection - Respiratory Exam Respiratory Exam: Clear to Ausculation Bilateral, NORMAL BREATHING PATTERN - Cardiovascular Exam Cardiovascular Exam: REGULAR RHYTHM, +S1, +S2 - GI/Abdominal Exam GI & Abdominal Exam: Soft, Normal Bowel Sounds - Extremities Exam Extremities Exam: Full ROM, Normal Inspection - Neurological Exam Neurological Exam: Alert, Awake, Oriented x3 - Psychiatric Exam Psychiatric exam: Normal Affect, Normal Mood - Skin Skin Exam: Dry, Intact, Normal Color, Warm Assessment and Plan - Assessment and Plan (Free Text) Assessment: 52 yo WF with h/o gastric bypass, chronic Fe def anemia, HTN, CVA, bipolar+schizophrenia presenting with n/v/d. 1. Acute Nausea/Vomiting/Diarrhea 2. Gastroenteritis 3. RLL PNA 4. Chronic Fe def Anemia Plan: -Continue supportive care with pain control and anti-emetics - Abx per primary team - Clinically improving - Tolerating soft diet - Stool studies pending - MRE as outpatient - Pt okay for discharge home per GI perspective <Radhika Sanchez V - Last Filed: 04/22/18 18:14> Objective - Vital Signs/Intake and Output Vital Signs (last 24 hours): Temp Pulse Resp BP Pulse Ox 98.3 F 68 19 143/99 H 98 04/22/18 17:05 04/22/18 17:05 04/22/18 17:05 04/22/18 17:05 04/22/18 17:05 Intake and Output: 04/22/18 04/22/18 06:59 18:59 Intake Total 990 Balance 990 - Medications Medications: Current Medications Acetaminophen (Tylenol 325mg Tab) 650 mg PO Q6H PRN PRN Reason: Fever >100.4 F Last Admin: 04/21/18 07:46 Dose: 650 mg Acetaminophen/Butalbital/Caffeine (Fioricet) 1 tab PO Q8H PRN PRN Reason: Headache Last Admin: 04/21/18 21:53 Dose: 1 tab Albuterol/Ipratropium (Duoneb 3 Mg/0.5 Mg (3 Ml) Ud) 3 ml IH [id number] KEITH Last Admin: 04/22/18 16:26 Dose: 3 ml Apixaban (Eliquis) 5 mg PO BID KEITH; Protocol Last Admin: 04/22/18 09:54 Dose: 5 mg Aripiprazole (Abilify) 30 mg PO HS KEITH; Protocol Last Admin: 04/21/18 21:52 Dose: 30 mg Atorvastatin Calcium (Lipitor) 10 mg PO DIN [facility] Last Admin: 04/21/18 17:06 Dose: 10 mg Azithromycin (Zithromax) 500 mg PO DAILY [facility]; Protocol Stop: 04/27/18 10:01 Last Admin: 04/22/18 09:55 Dose: 500 mg Benzonatate (Tessalon Perles) 100 mg PO TID [facility] Last Admin: 04/22/18 14:40 Dose: 100 mg Cholecalciferol (Vitamin D) 1,000 intlu PO MON KEITH Clonazepam (Klonopin) 1 mg PO HS KEITH; Protocol Clonazepam (Klonopin) 0.5 mg PO BID PRN; Protocol PRN Reason: Anxiety Folic Acid (Folic Acid) 1 mg PO BID [facility] Last Admin: 04/22/18 09:56 Dose: 1 mg Meropenem (Merrem Iv 1 Gm Premix) 1 gm in 50 mls @ 100 mls/hr IVPB Q8 [facility]; Protocol Stop: 04/28/18 22:01 Last Admin: 04/22/18 14:40 Dose: 100 mls/hr Dextrose/Sodium Chloride (Dextrose 5%/0.9% Ns 1000 Ml) 1,000 mls @ 50 mls/hr IV .Q20H [facility] Last Admin: 04/22/18 01:35 Dose: 50 mls/hr Levothyroxine Sodium (Synthroid) 125 mcg PO ACB [facility] Last Admin: 04/22/18 08:50 Dose: 125 mcg Metoprolol Tartrate (Lopressor) 25 mg PO BID [facility] Last Admin: 04/22/18 09:54 Dose: 25 mg Ondansetron HCl (Zofran Odt) 4 mg PO Q8H PRN PRN Reason: Nausea/Vomiting Pantoprazole Sodium (Protonix Ec Tab) 40 mg PO 0600 [facility] Last Admin: 04/22/18 05:30 Dose: 40 mg Pregabalin (Lyrica) 50 mg PO DAILY [facility] Last Admin: 04/22/18 09:53 Dose: 50 mg Zolpidem Tartrate (Ambien) 10 mg PO HS PRN; Protocol PRN Reason: Insomnia Last Admin: 04/21/18 21:53 Dose: 10 mg - Labs Labs: 04/22/18 07:00 04/22/18 07:00 PT 18.3 SECONDS (9.4-12.5) H 04/19/18 12:45 INR 1.58 04/19/18 12:45 APTT 33.2 Seconds (25.1-36.5) 04/19/18 12:45 Attending/Attestation - Attestation I have personally seen and examined this patient.: Yes I have fully participated in the care of the patient.: Yes I have reviewed all pertinent clinical information, including history, physical exam and plan: Yes Notes (Text): This is an addendum to GI progress report dictated by the GI Fellow.The patient was seen and examined earlier. Medical records, lab studies, imagings were reviewed. Last 24 hours events reviewed. Agreed with the above treatment plan as outlined in GI Fellow 's notes with the addition of the following Patient denies any abdominal pain Tolerating diet Abdomen soft no tenderness Patient has been on antibiotics for pneumonia Mild drop in hemoglobin probably secondary to dilution Recommend MRE as outpatient to further evaluate small bowel 04/22/18 18:12
--- NOTE | 2018-04-22 20:48 | PN ---
DATE: 04/22/2018 PULMONARY PROGRESS NOTE REFERRING PHYSICIAN: Janelle Greene MD. SUBJECTIVE: She is out of bed to chair. Family is at bedside. Had a panic attack last night, after that could not sleep, presently comfortable. No headache, no rhinitis. No nausea, vomiting, or diarrhea. No leg pain or leg swelling. PHYSICAL EXAMINATION: GENERAL: In no acute distress. VITAL SIGNS: Temperature is 98, heart rate is 68, respiratory rate is 20, blood pressure 143/99, pulse ox 98% on room air. HEENT: Moist mucous membranes. Crowded airway. Mallampati score is 4. NECK: Supple. No JVD. LUNGS: Have a scattered rhonchi. HEART: S1 and S2. ABDOMEN: Soft, nontender. No organomegaly. EXTREMITIES: There is trace edema. NEUROLOGIC: Awake, alert, and follows simple command. MEDICATIONS: She is on Abilify 30 mg at bedtime, Ambien 10 mg at bedtime p.r.n., DuoNeb every 4 hours p.r.n., Eliquis 5 mg twice a day, Fioricet 1 tablet every 8 hours p.r.n., folic acid 1 mg twice a day, Klonopin 0.5 mg twice a day p.r.n. and clonazepam 1 mg p.o. at bedtime, Lipitor 10 mg daily, metoprolol tartrate 25 mg twice a day, Lyrica 50 mg daily, meropenem 1 g IV every 8 hours, Protonix 40 mg daily, Synthroid 125 mcg daily, Tessalon Perles 100 mg three times a day, Tylenol p.r.n., vitamin D 1000 International Units weekly, Zithromax 500 mg daily, and Zofran p.r.n. basis. LABORATORY DATA: Shows hemoglobin 9.8, hematocrit 31.1, WBC 6.9, platelet is 244. Sodium 142, potassium 3.5, chloride 110, bicarbonate 25, BUN 7, creatinine 0.8, glucose 73, phosphorus 3.2, magnesium 1.8. AST 15, ALT 18, alk phos is 85. Albumin is 3.2. Microbiology: Blood culture and urine culture, there is no growth. IMPRESSION AND PLAN: Basilar infiltrate, chronic obstructive lung disease, hypertension, cerebrovascular accident, hypothyroid, iron-deficiency anemia, ferritin level is high though, gastric bypass surgery in the remote past, osteoporosis, depression, schizophrenia, panic attack. Pulmonary point of view, doing okay. Continue bronchodilator. Keep head at 45 degrees. Antibiotics. The patient refused to use CPAP/BiPAP, understanding risks of sleep apnea. Gastric and DVT prophylaxis. Fall precaution. May get psychiatry evaluation by Dr. Crouch for panic attack. Thank you and we will follow with you. Gisselle Sears MD
--- NOTE | 2018-04-22 22:22 | PN ---
DATE: 04/22/2018 This is Julieth [facility]'s hospital visit on the medical floor. For Dr. Malave. SUBJECTIVE: The patient is a 52-year-old female seen lying awake in bed after low blood sugars were noted earlier today with the patient's headache persisting. Upon questioning, the patient reports that she did not get her dose of Klonopin at bedtime as she usually gets which prevents anxiety, the patient states she suffered an anxiety attack. With this, we will adjust her Klonopin dose so that it is a regular dose at bedtime with additional doses during the day as needed for p.r.n. anxiety. She is also noted to have a low potassium value. She is known to suffer from dumping syndrome with Dr. Salas of Endocrinology also asked to evaluate the patient. After glucose was replenished, the patient felt better. PHYSICAL EXAMINATION: VITAL SIGNS: Temperature 98.3, pulse 68, respirations 19, blood pressure 143/99, pulse ox 98%. HEENT: Unremarkable. NECK: Supple. HEART: Regular rate. LUNGS: Clear. ABDOMEN: Obese, soft, nontender. EXTREMITIES: A +1 edema. NEUROLOGIC: Awake, alert. SKIN: Warm and dry. LABORATORY DATA: The patient's labs were done. White blood cell count is 6.9, hemoglobin 9.8, hematocrit 31.1, platelet count of 244,000 with a chem metabolic panel showing a potassium of 3.5, chloride of 110, otherwise normal chem metabolic panel. It should be noted that her iron stores were within normal range with a percent saturation of 36% with the blood sugar done earlier today in the 50 range, this was a fingerstick documentation. It will be done as per nursing. 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 PLAN: Plan for this patient after conversation with Dr. Malave is to continue with present medical regimen with consult with Dr. Salas, Endocrinology requested along with Dr. Hoos[place] for her severe headaches that did not respond to Fioricet. This is a complex patient with a comprehensive medically necessary and appropriate visit carried out in excess of 30 minutes. Ronal Kahn MD
--- NOTE | 2018-04-22 22:38 | PN ---
DATE: 04/22/2018 SUBJECTIVE: Patient is a 52-year-old female. Patient was seen and examined at the bedside on 04/22/2018. was sitting at the bedside also. As per patient, last night she had panic attack and when I saw the patient at that time, the attack was over. [facility] psychiatrist[facility] reporting some abdominal pain, but no nausea or vomiting. No hematuria or hematochezia. No fever, no chills. No headache, no dizziness. PHYSICAL EXAMINATION: VITAL SIGNS: Temperature 97.9, pulse 75, respiratory rate 20, blood pressure 125/66, pulse oximetry 98. HEENT: Head: Normocephalic and atraumatic. Eyes: PERRLA. Extraocular muscles intact. Conjunctivae clear. Nose patent. Mucous membrane moist. NECK: Supple. No carotid bruit. No JVD, thyromegaly. CHEST: Bilaterally symmetrical. HEART: S1, S2 positive. LUNGS: Clear to auscultation. ABDOMEN: Soft. Bowel sounds present. No organomegaly. EXTREMITIES: No edema. No cyanosis. NEUROLOGIC: Patient is awake and alert. Moving all four extremities. No focal deficits. MEDICATIONS: Tylenol, Fioricet, DuoNeb, Eliquis, Abilify, Zithromax, Klonopin, Merrem, Lopressor, Protonix, Ambien. LABORATORY DATA: White blood cells 6.9, hemoglobin 9.8, hematocrit 31.1, platelets 244. Sodium 140, potassium 3.5, BUN 7, creatinine 0.8, glucose 73. ASSESSMENT AND PLAN: Ms. Julieth Szymanski, 52-year-old female with anemia, hypokalemia, hyperchloremia, history of gastric bypass, chronic iron-deficiency anemia, hypertension, cerebrovascular accident, bipolar, schizophrenia, came with nausea, vomiting, and diarrhea. Now she is doing better. Gastroenteritis, right lower lobe pneumonia, chronic iron deficiency, maybe due to gastric bypass, history of panic attack last night. We will call Psychiatry consult. Continue supportive care. Antibiotics, patient is getting. Clinically improving. Tolerating soft food. Discussion done with the and the patient. Gastrointestinal, deep vein thrombosis prophylaxes. Repeat labs. We will follow up. Janelle Greene MD
[2018-04-23] MEDS: Dextrose 5%/0.9% NS 1,000 ML IV SCH (01:56)
[2018-04-23] MEDS: Albuterol-Ipratrop 3 mg / 0.5 (3 ml) UD IH SCH ×3 (02:39→11:01)
[2018-04-23 04:28] VITALS: RESP 20
[2018-04-23] MEDS: Meropenem IV 1 gm in NS 1 GM/50 ML BAG IVPB SCH (05:45)
[2018-04-23] MEDS: Pantoprazole 40 mg EC Tab PO SCH (05:46)
[2018-04-23 07:14] LABS: BASO # 0.02 K/mm3 (0.0-2.0); BASO % 0.2 % (0.0-3.0); EOS % 0.1 % (1.5-5.0); GRAN # 6.96 (1.4-6.5); GRAN % 79.4 % (50.0-68.0); HEMOGLOBIN 9.6 g/dL (12.0-16.0); LYMPH # 1.4 (1.2-3.4); LYMPH % 15.4 % (22.0-35.0); MEAN CELL VOLUME 93.9 fl (80.0-105.0); MEAN CORPUSCULAR HEMOGLOBIN 29.1 pg (25.0-35.0); MONO # 0.4 (0.1-0.6); MONO % 4.9 % (1.0-6.0); RBC 3.3 10^6/uL (3.5-6.1); WHITE BLOOD COUNT 8.8 10^3/uL (4.5-11.0)
[2018-04-23 07:31] VITALS: BP 153/99; PULSE 73; TEMP 97.6
--- NOTE | 2018-04-23 08:01 | CON ---
DATE: ENDOCRINOLOGY CONSULTATION ROOM: 374. HISTORY OF PRESENT ILLNESS: This is a 52-year-old female very well known to me presenting here with diffuse abdominal pain with supervening nausea, dyspepsia and vomiting with eventual loose watery diarrhea following the intake of some clam chowder prior to the aforementioned, and is now being referred for endocrine evaluation because of persistent hypoglycemic episodes as noted thereof. PAST MEDICAL HISTORY: As mentioned above, history of a gastric bypass surgery undertaken in the year 1999 with subsequent episodic bouts of so-called functional hypoglycemia as noted thereof. History of underlying super morbid obesity since early adulthood and has had multiple attempts for weight loss until she went for the gastric bypass surgery in the year 1999. Dramatic weight loss has supervened, but has plateaued to a weight in the 230 pounds as noted. History of hypertension and dyslipidemia, history of chronic asthmatic bronchitis with previous admissions for the same, history of a previous CVA with a transient ischemic event with no residual weakness, history of paroxysmal atrial fibrillation, on Eliquis and oral anticoagulation therapy as given. History of generalized anxiety and depression with underlying schizophrenia and is currently on multiple psychotropic medications as noted. History of generalized osteoarthritis and underlying osteoporosis, on antiresorptive medications. FAMILY HISTORY: Positive for hypertension and diabetes. SOCIAL HISTORY: The patient has a very supportive who is very attentive to her needs. No known substance use. REVIEW OF SYSTEMS: As mentioned above. Admits to generalized body weakness with easy fatigability and tiredness and suboptimal energy level. No chest pains, palpitations or PNDs, but admits to episodic shortness of breath especially on exertion. Her oral intake has been variable with nausea, dyspepsia, and vague upper abdominal pains with supervening intractable vomiting and loose watery diarrhea, possibly related to recent food poisoning (i.e., fish.). Persistent nocturia as noted. PHYSICAL EXAMINATION: GENERAL: This is an average, descent overweight female in no apparent distress. VITAL SIGNS: Blood pressure of 140/80, pulse of 80 beats per minute and regular, temperature 98, respirations 20, height is 5 feet 6 inches, and weight is 231 pounds. HEENT: Head; normocephalic. Eyes; anicteric with pink conjunctivae. Funduscopy not possible at this time. Ears, nose, and throat otherwise normal. NECK: Supple. Thyroid gland is normal in size. No carotid bruits or cervical adenopathy. CARDIOPULMONARY: Adynamic precordium. S1 and S2 is rapid and regular. LUNGS: Showed scattered rhonchi. ABDOMEN: Obese and soft with positive bowel sounds. EXTREMITIES: No peripheral edema. Pulses are +2 bilaterally. LABORATORY DATA: The chemistry showed a BUN of 21, sodium 140, potassium 3.7, chloride 105, CO2 of 28, glucose 99 and creatinine 1.1. Her glucose levels have ranged from 60 to 75 and 82 mg/dL. ASSESSMENT This is a 52-year-old female with underlying morbid obesity and underwent a gastric bypass surgery in the year 1999 with subsequent episodic bouts of functional hypoglycemia as noted thereof. There is a frequent occurrence of the so-called dumping syndrome, which can cause sudden dip of the blood sugar and supervening rise of the serum insulin level causing the aforementioned episodic hypoglycemia as noted in this patient. PLAN OF MANAGEMENT: We will continue the dextrose infusion as given as the patient actually has also very early heart failure as noted. We will give low-dose Levemir given as 8 units subcutaneously at bedtime daily as needed. We will titrate incrementally as indicated to optimize metabolic control. We will follow. Genesis Salas MD
[2018-04-23] MEDS: Levothyroxine 125 MCG TAB PO SCH (08:14)
[2018-04-23 08:20] LABS: T4 8.7 ug/dL (5.5-11.0)
[2018-04-23 08:22] LABS: BLOOD UREA NITROGEN 9 mg/dL (7-21); GFR NON-AFRICAN AMERICAN > 60
[2018-04-23 08:23] LABS: ALB/GLOB RATIO 0.9 (1.1-1.8); ALBUMIN 3.2 g/dL (3.0-4.8); ALT/SGPT 15 U/L (7-56); AST/SGOT 16 U/L (14-36)
[2018-04-23] MEDS ORDERED: Cholecalciferol 1,000 INTLU TAB PO SCH (10:00)
--- NOTE | 2018-04-23 14:34 | PN ---
DATE: 04/23/2018 SUBJECTIVE: The patient is in bed, in no acute distress, nontoxic. PHYSICAL EXAMINATION: VITAL SIGNS: On exam, temperature is 98, blood pressure is 120/70, and respiratory rate is 16. HEENT: Unremarkable. NECK: Supple. LUNGS: Lungs have decreased breath sounds. HEART: Normal S1 and S2. ABDOMEN: Soft and nontender. LABORATORY EXAMINATION: Reveals a white count of 8.8, hemoglobin of 9 and platelets of 273. Chemistries revealed a BUN of 9 and creatinine of 0.8. Urinalysis is noted. Blood cultures have no growth and urine cultures have no growth. ASSESSMENT AND PLAN: This is a 52-year-old female with obesity, body mass index of 37, methicillin-resistant Staphylococcus aureus bacteremia by history, history of left healthcare-associated pneumonia, history of rheumatoid arthritis, hypothyroidism, schizoaffective disorder, bipolar, transient ischemic attack, cerebrovascular accident, obstructive sleep apnea, atrial fibrillation, who was admitted with sepsis and community-acquired pneumonia and does have a Port-A-Cath, and thus far, the patient today is day #5 of antibiotics. The patient's blood cultures are negative and urine cultures are negative. We will discontinue the meropenem and complete with p.o. Zithromax 5 to 7 days. The patient is doing well. No fevers. Urine for Legionella is negative and white count is down to normal. Alexander Bustamante MD
--- NOTE | 2018-04-23 16:34 | CP.PCM.PN ---
Subjective - Date & Time of Evaluation Date of Evaluation: 04/23/18 Time of Evaluation: 09:00 - Subjective Subjective: Hematology/Oncology Progress Note (Dr. Malave's Service) Patient seen and assessed at bedside. No acute events noted overnight. Patient denies any complaints at this time including fevers, chills, headache, chest pain, SOB, abdominal pain, N/V/D/C, changes in urine output, skin changes or any numbness/tingling of any extremity. Objective - Vital Signs/Intake and Output Vital Signs (last 24 hours): Temp Pulse Resp BP Pulse Ox 97.6 F 73 20 153/99 H 98 04/23/18 06:00 04/23/18 08:15 04/23/18 06:00 04/23/18 08:15 04/23/18 06:00 Intake and Output: 04/23/18 04/23/18 06:59 18:59 Intake Total 1140 Balance 1140 - Labs Labs: 04/23/18 05:24 04/23/18 05:24 PT 18.3 SECONDS (9.4-12.5) H 04/19/18 12:45 INR 1.58 04/19/18 12:45 APTT 33.2 Seconds (25.1-36.5) 04/19/18 12:45 - Constitutional Appears: Non-toxic, No Acute Distress - Head Exam Head Exam: ATRAUMATIC, NORMOCEPHALIC - Eye Exam Eye Exam: EOMI - ENT Exam ENT Exam: Mucous Membranes Moist - Neck Exam Neck Exam: Full ROM - Respiratory Exam Respiratory Exam: Clear to Ausculation Bilateral, NORMAL BREATHING PATTERN. absent: Accessory Muscle Use, Chest Wall Tenderness, Decreased Breath Sounds, Prolonged Expiratory Phase, Rales, Rhonchi, Wheezes, Respiratory Distress, Strid or - Cardiovascular Exam Cardiovascular Exam: REGULAR RHYTHM, RRR, +S1, +S2 - GI/Abdominal Exam GI & Abdominal Exam: Soft, Normal Bowel Sounds. absent: Tenderness - Extremities Exam Extremities Exam: Normal Inspection. absent: Calf Tenderness - Neurological Exam Neurological Exam: Alert, Awake, Oriented x3 - Psychiatric Exam Psychiatric exam: Normal Affect, Normal Mood - Skin Skin Exam: Dry, Intact, Warm Assessment and Plan - Assessment and Plan (Free Text) Assessment: 52 year old female with a past medical history significant for HTN, CVA, asthma, hypothyroidism, iron deficiency anemia, paroxysmal atrial fibrillation on Eliquis, bipolar, gastric bypass, osteoporosis, depression, and schizophrenia who presented from Dr. Malave's office with four days of diffuse mild abdominal pain, nausea, vomiting and diarrhea that started after eating "sour" clam chowder. Patient was found to have a leukocytosis of 17.0 on CBC and a right lower lobe pneumonia on Chest X-ray in the ED. A CT abdomen/pelvis showed left nephrolithiasis, mildly distended GB, s/p gastric bypass and bibasilar intersti tial infiltrates. Plan: 1. RLL Pneumonia -Chest X-Ray (portable) showed RLL pneumonia -Chest X-Ray PA/Lateral showed no interval changes -Blood cultures, legionella, procalcitonin and influenza negative -Continue Zithromax -Continue Duonebs Q4H -Hematology/Oncology, ID and Pulmonology consulted, all recommendations appreciated 2. Nausea, Vomiting and Diarrhea -CT Abdomen/Pelvis with PO contrast findings noted -Zofran 4mg ODT PO Q8 PRN -Heart Healthy Diet -Aspiration precautions -GI consulted, all recommendations appreciated 3. History of Paroxysmal Atrial Fibrillation -Continue home Metoprolol -Continue home Eliquis 4. History of Bipolar Disorder -Continue home Abilify 5. History of SHERRY -Stable H/H on CBC -Will continue to monitor with daily CBC's 6. History of Anxiety -Continue home Klonopin 7. History of Insomnia -Continue home Ambien 8. History of Hypothyroidism -Continue home Synthroid GI Prophylaxis: Protonix DVT Prophylaxis: Eliquis Patient seen and case discussed with attending, Dr. Boateng. Carlo Toth PGY2
[2018-04-23 16:43] VITALS: O2SAT 95
--- NOTE | 2018-04-23 16:43 | IP.NPCORE ---
Pneumonia Progress Notes - Oxygenation Assessment (REQUIRED) O2 Saturation: 95 Oxygen Delivery Method: Room Air Documented P02: No - Blood Cultures (REQUIRED) Culture drawn: Yes Date:: 04/19/18 - Initial Antibiotic Initial Antibiotic given within Four Hours:: Yes Date:: 04/19/18 Time:: 22:00 - Appropriate Antibiotic Appropriate Antibiotic within 24 hours of Admission:: Yes No change in antibiotics: Yes - Pneumonia Vaccine Pneumonia Vaccine: No (unknown, not documented) - Smoking Cessation Smoking Cessation counseling provided:: Yes Ex-Smoker (has not smoked in the last 12 months): Yes Current Smoker - smoking cessation education provided: No
--- NOTE | 2018-04-23 19:13 | PN ---
DATE: 04/23/2018 ENDOCRINOLOGY FOLLOWUP NOTE LOCATION: Room 374. SUBJECTIVE: This is a 52-year-old female admitted with acute pneumonitis and also concomitant symptomatic hypoglycemia with associated neuroglycopenic and hyperadrenergic manifestations of the same and is now being followed closely for metabolic management. Her glucose levels today have ranged from 61-80 mg/dL. Her chemistry showed a BUN of 9, sodium 140, potassium 4.2, chloride 111, CO2 of 24, glucose 81 and creatinine 0.8. Her serum cortisol level was low at 1.4 mcg/dL with the thyroid study and a T4 level of 8.7 with a TSH of 2.7. So at this time, we will continue the same dosing of her levothyroxine given as 150 mcg once daily as ordered. However, she is scheduled for discharge today and we will have to repeat her serum cortisol and add an ACTH level to confirm whether she really has hypoadrenalism or not. We will obtain serial chemistries and supplement accordingly as needed. We are also awaiting the reports of the serum insulin and C-peptide levels as ordered. We will follow and advise accordingly. She has also been advised to increase her protein intake with six frequent small feedings during the day as ordered. We will follow. Genesis Salas MD
--- NOTE | 2018-04-23 20:26 | CON ---
DATE: 04/23/2018 HISTORY OF PRESENT ILLNESS: The patient is a 52-year-old female, with a history of bipolar disorder and multiple medical issues. She was admitted to [facility] for evaluation of abdominal pain associated with vomiting. The psychiatrist called to evaluate for symptoms of panic while on the medical floor. The patient was seen at bedside this morning and she is alert and well oriented to month, year and circumstances. The patient reports she has been experiencing more anxiety and panic unusual during this hospitalization and also reports feeling more emotional. Indicates that her medical issues has been stressing her out; however, denies any other acute issues and needs to see Dr. Shau, [facility]. The next followup will be in April. The patient does indicate that she been prescribed Ambien [address] Sahu as well Klonopin as well as Abilify 30 mg at bedtime. The patient also indicates that she has also been prescribed Cymbalta 90 mg daily and she has been taking this daily; however, it does not appear that she has been receiving this medication on the medical floor, which could account for her increased panic and anxiety. She reports with mild depression, but she is not hopeless, she is not suicidal, she does not have any of these thoughts at this time. She is coherent. Denies any hallucinations. Does not appear to be responding to internal stimuli. Responses are generally consistent with repeated questioning. Her insight and judgment are considered to be fair. VITAL SIGNS/LABS: Are reviewed. RELEVANT PSYCHIATRIC MEDICATIONS: As noted. Started on the medical floor, Abilify 15 mg at bedtime, Klonopin 0.5 mg b.i.d. p.r.n. h.s., Ambien 10 mg at bedtime p.r.n., which patient has been receiving intermittently. IMPRESSION: Bipolar, depression, currently mild symptoms. Panic disorder, generalized anxiety disorder likely adjustment disorder with depression and anxiety as well as psychotropic medication withdrawal specifically Cymbalta. RECOMMENDATIONS: We will restart Cymbalta at 60 mg daily today and increase it to 90 mg as per her normal dosage by tomorrow 04/24/2018. The patient is in agreement with this plan and understands that Cymbalta withdrawal may actually be causing her increasing anxiety and panic, not to mention her current medical issues are likely contributing. Psychiatry will followup with her from 04/24/2018 to monitor her symptoms; however, she is not in any acute injury to herself or others and if she is medically cleared prior to this followup, she does not need to be psychiatrically retained because of any concerns. Gt Palacio MD
--- NOTE | 2018-04-24 08:44 | CP.PCM.PCO ---
Physician Communication Note - Physician Communication Note Physician Communication Note: psychiatry signed off
[2018-04-24 16:27] LABS: C-PEPTIDE 3.2 ng/mL (0.80-3.85)
== END 2018-04-23 15:32 | disposition home or self-care (01) | DRG 871 ==
LOC: ED 11:26 → ERH 15:36 → 2RSO 17:50 → 3RSO 04-20 17:10
PROVIDERS: ADMIT Internal Medicine; ATTEND Internal Medicine
DX: A41.9 Sepsis, unspecified organism (principal); J69.0 Pneumonitis due to inhalation of food and vomit; E27.40 Unspecified adrenocortical insufficiency; J44.0 Chronic obstructive pulmonary disease with (acute) lower respiratory infection; K52.9 Noninfective gastroenteritis and colitis, unspecified; I48.0 Paroxysmal atrial fibrillation; E03.9 Hypothyroidism, unspecified; D50.9 Iron deficiency anemia, unspecified; F31.9 Bipolar disorder, unspecified; F20.9 Schizophrenia, unspecified; Z86.73 Personal history of transient ischemic attack (TIA), and cerebral infarction without residual deficits; I10 Essential (primary) hypertension; E66.01 Morbid (severe) obesity due to excess calories; Z68.37 Body mass index [BMI] 37.0-37.9, adult; Z98.84 Bariatric surgery status; K91.1 Postgastric surgery syndromes; E87.6 Hypokalemia; E11.649 Type 2 diabetes mellitus with hypoglycemia without coma; E66.9 Obesity, unspecified; E78.5 Hyperlipidemia, unspecified; E87.8 Other disorders of electrolyte and fluid balance, not elsewhere classified; F41.0 Panic disorder [episodic paroxysmal anxiety]; F41.1 Generalized anxiety disorder; F43.23 Adjustment disorder with mixed anxiety and depressed mood; G47.00 Insomnia, unspecified; G47.33 Obstructive sleep apnea (adult) (pediatric); J31.0 Chronic rhinitis; K21.9 Gastro-esophageal reflux disease without esophagitis; K64.8 Other hemorrhoids; K82.8 Other specified diseases of gallbladder; M06.9 Rheumatoid arthritis, unspecified; M15.9 Polyosteoarthritis, unspecified; M79.7 Fibromyalgia; M81.0 Age-related osteoporosis without current pathological fracture; N20.0 Calculus of kidney; Y95 Nosocomial condition; Z79.01 Long term (current) use of anticoagulants; Z79.899 Other long term (current) drug therapy; Z86.14 Personal history of Methicillin resistant Staphylococcus aureus infection; Z86.718 Personal history of other venous thrombosis and embolism; Z87.01 Personal history of pneumonia (recurrent); Z87.442 Personal history of urinary calculi; Z91.19 Patient's noncompliance with other medical treatment and regimen; Z88.8 Allergy status to other drugs, medicaments and biological substances; Z91.041 Radiographic dye allergy status

== ENCOUNTER 2018-10-04 17:22 | Outpatient (CLI) | payer MEDICARE, OTHER | END 2018-10-04 17:23 | disposition home or self-care (01) | LOC: RAD 17:22 ==

== ENCOUNTER 2018-10-23 12:57 | Outpatient (CLI) | payer MEDICARE, OTHER | END 2018-10-23 12:58 | disposition home or self-care (01) | LOC: RAD 12:57 ==

== ENCOUNTER 2018-11-08 13:09 | Emergency (ER) | payer MEDICARE, OTHER ==
[2018-11-08 13:10] VITALS: BMI 37.1
[2018-11-08 13:14] VITALS: TEMP 98.6
--- NOTE | 2018-11-08 14:00 | ED PDOC ---
Arrival/HPI <Tj Montanez - Last Filed: 11/08/18 14:34> - General Historian: Patient - History of Present Illness Narrative History of Present Illness (Text): 11/08/18 13:55 Pt is a 53 yo female with a PMH of SHERRY, a fib, gastric bypass, hypoglycemia, pit adenoma, hypertension, hypothyroid, asthma, COPD who presents to the ED complaining of shortness of breath which started yesterday. Reports yellow sputum production since yesterday. Pt reports a fever of 102.5F at home. Pt tried 8 nebulizer treatments at home, which did not help. Pt states her HR was 112 at that time. Denies sick contacts. Reports some chest discomfort with the shortness of breath. Time/Duration: 24 hours Symptom Onset: Gradual <Deven Ulloa - Last Filed: 11/08/18 15:21> - General Chief Complaint: Shortness Of Breath Time Seen by Provider: 11/08/18 13:16 Past Medical History - Past History Past History: No Previous - Infectious Disease Hx of Infectious Diseases: None - Tetanus Immunization Tetanus Immunization: Unknown - Cardiac Hx Cardiac Disorders: Yes (AFib) Hx Peripheral Edema: Yes (ble +1 pitting) - Pulmonary Hx Respiratory Disorders: Yes Hx Sleep Apnea: Yes (does not use bipap) - Neurological Hx Neurological Disorder: Yes Hx Transient Ischemic Attacks (TIA): Yes (x4 2014 last 2016/L side weakness) - HEENT Hx HEENT Disorder: Yes - Renal Hx Renal Disorder: Yes Hx Kidney Stones: Yes - Endocrine/Metabolic Hx Endocrine Disorders: Yes Hx Hypothyroidism: Yes - Hematological/Oncological Hx Blood Disorders: Yes Hx Anemia: Yes - Integumentary Hx Dermatological Disorder: No - Musculoskeletal/Rheumatological Hx Musculoskeletal Disorders: Yes Hx Fractures: Yes (fell 2017 fx r ft casted no sx) Hx Unsteady Gait: Yes (cane walker w/ch) Other/Comment: generalized weakness, l side weakness, difficulty walking barefoot from r ft fx - Gastrointestinal Hx Gastrointestinal Disorders: Yes Other/Comment: gastric bypass sx 1999/ weight loss - Genitourinary/Gynecological Hx Genitourinary Disorders: No - Psychiatric Hx Substance Use: No Other/Comment: self mutilization age 22, eating disorder, hx of admitted to [facility], trouble sleeping, behavior and financial problems - Surgical History Other/Comment: picc line in and out, rcw pac in and replaced - Anesthesia Hx Anesthesia: Yes Hx Anesthesia Reactions: No Hx Malignant Hyperthermia: No - Suicidal Assessment Feels Threatened In Home Enviroment: No <Deven Ulloa - Last Filed: 11/08/18 15:21> Family/Social History Family/Social History: Hypertension, CAD/SC Smoking Status: Never Smoked Hx Alcohol Use: No Hx Substance Use: No Hx Substance Use Treatment: No <Deven Ulloa - Last Filed: 11/08/18 15:21> Allergies/Home Meds <Tj Montanez - Last Filed: 11/08/18 14:34> <Deven Ulloa - Last Filed: 11/08/18 15:21> Allergies/Adverse Reactions: Allergies Iodinated Contrast- Oral and IV Dye [Iodinated Contrast Media - IV Dye] Allergy (Verified 04/19/18 11:34) RASH iodine Allergy (Verified 04/19/18 11:34) RASH meperidine Allergy (Verified 04/19/18 11:34) RASH Home Medications: Home Meds Medication Instructions Recorded Confirmed Pantoprazole [Protonix EC Tab] 40 mg PO DAILY 03/21/17 04/19/18 Glucagon [Glucagen Diagnostic Kit] 1 mg SQ PRN PRN 03/21/18 04/19/18 Levocetirizine Dihydrochloride 5 mg PO DAILY 03/21/18 04/19/18 [Xyzal] Sucralfate [Carafate] 2 tsp PO Q6 03/21/18 04/19/18 oxyCODONE/Acetaminophen [Percocet 1 tab PO Q6 PRN 03/21/18 04/19/18 5/325 mg Tab] DULoxetine [Cymbalta] 60 mg PO BID 04/19/18 04/19/18 Review of Systems - Review of Systems Constitutional: Normal Eyes: Normal ENT: Normal Respiratory: SOB, Sputum, Wheezing Cardiovascular: Normal Gastrointestinal: Normal Musculoskeletal: Normal Skin: Normal Neurological: Normal Endocrine: Normal Hemo/Lymphatic: Normal Psychiatric: Normal <Deven Ulloa - Last Filed: 11/08/18 15:21> Physical Exam Vital Signs Temp Pulse Resp BP Pulse Ox 11/08/18 13:13 98.6 F 92 H 20 107/75 93 L <LissethTj - Last Filed: 11/08/18 14:34> Vital Signs Reviewed: Yes Vital Signs Temp Pulse Resp BP Pulse Ox 11/08/18 13:13 98.6 F 92 H 20 107/75 93 L Temperature: Afebrile Blood Pressure: Normal Pulse: Regular Respiratory Rate: Normal Appearance: Positive for: Comfortable Mental Status: Positive for: Alert and Oriented X 3 - Systems Exam Head: Present: Atraumatic, Normocephalic Pupils: Present: PERRL Extroacular Muscles: Present: EOMI Mouth: Present: Moist Mucous Membranes Neck: Present: Normal Range of Motion Respiratory/Chest: Present: Wheezes. No: Respiratory Distress, Accessory Muscle Use Cardiovascular: Present: Regular Rate and Rhythm, Normal S1, S2 Abdomen: Present: Normal Bowel Sounds. No: Tenderness, Distention Upper Extremity: Present: Normal Inspection. No: Cyanosis, Edema Lower Extremity: Present: Normal Inspection. No: Edema, CALF TENDERNESS Neurological: Present: GCS=15, CN II-XII Intact Skin: Present: Warm, Dry, Normal Color Psychiatric: Present: Alert, Oriented x 3 <Deven Ulloa - Last Filed: 11/08/18 15:21> Medical Decision Making ED Course and Treatment: 11/08/18 14:34 A 53 year old female presents to the emergency room complaining of shortness of breath. In agreement with resident note, which includes further HPI details. Patient was seen and evaluated with resident, came up with plan and treatment together. - Lab Interpretations Lab Results: pO2 31 mm/Hg (30-55) 11/08/18 14:00 VBG pH 7.39 (7.32-7.43) 11/08/18 14:00 VBG pCO2 43.0 (40-60) 11/08/18 14:00 VBG HCO3 26.0 mmol/l (21-28) 11/08/18 14:00 VBG Total CO2 27.3 mmol.L (22-28) 11/08/18 14:00 VBG O2 Sat (Calc) 67.8 % (40-65) H 11/08/18 14:00 VBG Base Excess 0.8 mmol/L (0.0-2.0) 11/08/18 14:00 VBG Potassium 4.2 mmol/L (3.6-5.2) 11/08/18 14:00 Sodium 137.0 mmol/L (132-148) 11/08/18 14:00 Chloride 106.0 mmol/L (98-107) 11/08/18 14:00 Glucose 73 mg/dl (65-105) 11/08/18 14:00 Lactate 0.9 mmol/L (0.7-2.1) 11/08/18 14:00 FiO2 21.0 % 11/08/18 14:00 Troponin I < 0.01 ng/mL 11/08/18 13:45 NT-Pro-B Natriuret Pep 390 pg/mL (0-450) 11/08/18 13:45 Total Bilirubin 0.3 mg/dL (0.2-1.3) 11/08/18 13:45 AST 22 U/L (14-36) 11/08/18 13:45 ALT 19 U/L (7-56) 11/08/18 13:45 Alkaline Phosphatase 101 U/L (38-126) 11/08/18 13:45 Total Protein 7.6 g/dL (5.8-8.3) 11/08/18 13:45 Albumin 3.9 g/dL (3.0-4.8) 11/08/18 13:45 Globulin 3.7 gm/dL 11/08/18 13:45 Albumin/Globulin Ratio 1.1 (1.1-1.8) 11/08/18 13:45 - RAD Interpretation Radiology Orders: 11/08/18 13:17 CHEST PORTABLE [RAD] Stat <Tj Montanez - Last Filed: 11/08/18 14:34> ED Course and Treatment: 11/08/18 14:15 CMP CBC Mg BNP Trop Coag VBG blood cultures Pt seen, examined, assessment and plan discussed with Dr Lisseth Ulloa PGY1 - RAD Interpretation Radiology Orders: 11/08/18 13:17 CHEST PORTABLE [RAD] Stat <Deven Ulloa - Last Filed: 11/08/18 15:21> - PA / WAREHOUSE RECORD CLERK / Resident Statement LARRY has reviewed & agrees with the documentation as recorded. LARRY has examined the patient and agrees with the treatment plan. - Scribe Statement The provider has reviewed the documentation as recorded by the Malathi Brooks All medical record entries made by the Babitaibaniyah were at my direction and personally dictated by me. I have reviewed the chart and agree that the record accurately reflects my personal performance of the history, physical exam, medical decision making, and the department course for this patient. I have also personally directed, reviewed, and agree with the discharge instructions and disposition. <Tj Montanez - Last Filed: 11/08/18 14:34> Disposition/Present on Arrival <Tj Montanez - Last Filed: 11/08/18 14:34> - Present on Arrival Any Indicators Present on Arrival: No History of DVT/PE: No History of Uncontrolled Diabetes: No Urinary Catheter: No History of Decub. Ulcer: No History Surgical Site Infection Following: None - Disposition Have Diagnosis and Disposition been Completed?: Yes Disposition Time: 15:20 <Deven Ulloa - Last Filed: 11/08/18 15:21> - Disposition Diagnosis: Fever Disposition: HOME/ ROUTINE Patient Problems: Current Active Problems Problem Status Onset Fever Acute Condition: GOOD Discharge Instructions (ExitCare): When to Worry About a Fever Additional Instructions: Your fever has resolved, if your symptoms return or worsen please come back to the ED Referrals: Reji Butler MD [Primary Care Provider] - Follow up with primary Forms: [employer] (Yakut)
[2018-11-08 14:12] LABS: BASO # 0.04 K/mm3 (0.0-2.0); BASO % 0.5 % (0.0-3.0); EOS # 0.1 (0.0-0.7); EOS % 1.3 % (1.5-5.0); HEMOGLOBIN 11.9 g/dL (12.0-16.0); LYMPH # 0.9 (1.2-3.4); LYMPH % 10.8 % (22.0-35.0); MEAN CELL VOLUME 94.9 fl (80.0-105.0); MEAN CORPUSCULAR HEMOGLOBIN 30.1 pg (25.0-35.0); MEAN CORPUSCULAR HGB CONC 31.6 g/dl (31.0-37.0); MEAN PLATELET VOLUME 9.5 fl (7.0-11.0); MONO # 0.8 (0.1-0.6); MONO % 9.1 % (1.0-6.0); RBC 3.96 10^6/uL (3.5-6.1); RED CELL DISTRIBUTION WIDTH 14.2 % (11.5-14.5); WHITE BLOOD COUNT 8.7 10^3/uL (4.5-11.0)
[2018-11-08 14:15] LABS: VENOUS BLOOD GAS BASE EXCESS 0.8 mmol/L (0.0-2.0); VENOUS BLOOD GAS PO2 31 mm/Hg (30-55); VENOUS BLOOD PH 7.39 (7.32-7.43)
[2018-11-08 14:22] LABS: ALB/GLOB RATIO 1.1 (1.1-1.8); ALBUMIN 3.9 g/dL (3.0-4.8); ALT/SGPT 19 U/L (7-56); AST/SGOT 22 U/L (14-36); BLOOD UREA NITROGEN 20 mg/dL (7-21); CALCIUM 8.7 mg/dL (8.4-10.5); GFR NON-AFRICAN AMERICAN 52
--- NOTE | 2018-11-08 14:22 | RAD ---
Date of service: 11/08/2018 HISTORY: sob COMPARISON: 04/20/2018 TECHNIQUE: 1 view obtained. FINDINGS: LUNGS: No active pulmonary disease. PLEURA: No significant pleural effusion identified, no pneumothorax apparent. CARDIOVASCULAR: No aortic atherosclerotic calcification present. Normal cardiac size. No pulmonary vascular congestion. OSSEOUS STRUCTURES: No significant abnormalities. VISUALIZED UPPER ABDOMEN: Normal. OTHER FINDINGS: Right-sided Port-A-Cath IMPRESSION: No active disease.
[2018-11-08 14:33] LABS: B-TYPE NATRIURETIC PEPTIDE 390 pg/mL (0-450); TROPONIN I < 0.01 ng/mL
[2018-11-08 14:47] LABS: INR 1.31; PARTIAL THROMBOPLASTIN TIME 44.6 Seconds (26.9-38.3); PROTHROMBIN TIME 14.5 SECONDS (9.4-12.5)
[2018-11-08 15:36] VITALS: BP 119/71; PULSE 75; RESP 16; O2SAT 97
--- NOTE | 2018-11-09 11:56 | CARD ---
APPROVED REPORT Date of service: 11/08/2018 EKG Measurement Heart [id number] <Conclusion> Normal sinus rhythm Normal ECG
== END 2018-11-08 15:39 | disposition home or self-care (01) ==
LOC: ED 13:09
DX: R50.9 Fever, unspecified (principal); I10 Essential (primary) hypertension; I48.91 Unspecified atrial fibrillation; E03.9 Hypothyroidism, unspecified; J44.9 Chronic obstructive pulmonary disease, unspecified; Z86.73 Personal history of transient ischemic attack (TIA), and cerebral infarction without residual deficits